=== PATIENT | female | born 1970 | race Caucasian/White ===

== ENCOUNTER 2016-11-08 21:20 | Emergency (ER) | payer OTHER ==
[~2016-11-08] VITALS: Ht 160 cm; Wt 61.2 kg
[~2016-11-08 21:20] MED LIST: ALPR.5T PO; CYCL10TA9 PO; FLUT16SP22 NS; PRD20T PO; [UNRECOGNIZED DRUG - CODE]
[2016-11-08] MEDS ORDERED: [UNRECOGNIZED DRUG - OTHER] (21:32)
[2016-11-08] MEDS ORDERED: PROP60TA17 (21:32)
[2016-11-08] MEDS ORDERED: GABA-486 (21:32)
[2016-11-08] MEDS ORDERED: PSEU60TA20 (21:32)
[2016-11-08] MEDS ORDERED: LEVO5TAB12 (21:32)
[2016-11-08] MEDS ORDERED: ALPR1TAB7 (21:33)
[2016-11-08] MEDS ORDERED: BACL20TA (21:33)
--- NOTE | 2016-11-08 21:38 | ED Head Injury ---
General Chief Complaint: Head/Cervical Problems Stated Complaint: MIGRAINE Nursing Triage Note: migraine since this morning, reports taking fiorecet without relief Source: patient, RN notes reviewed Exam Limitations: no limitations History of Present Illness Time seen by provider: 21:38 Initial Comments As above and below. 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 (+) hx of migraines. Occurred: this morning Severity: severe Location: frontal (right) Associated Systoms: Nausea/Vomiting Allergies and Home Medications Allergies Coded Allergies: No Known Drug Allergies (Unverified , 12/30/12) Home Medications Alprazolam 0.5 Mg Tablet, 1 TAB PO BID, (Reported) Alprazolam 1 Mg Tablet, #60 (Reported) Baclofen 20 Mg Tablet, #90 (Reported) Fluticasone Propionate 16 Gm Naspr, 16 GM NS DAILY, (Reported) Gabapentin 100 Mg Capsule, #90 (Reported) Levocetirizine Dihydrochloride 5 Mg Tablet, #30 (Reported) Propranolol HCl 60 Mg Tablet, #60 (Reported) Pseudoephedrine HCl 60 Mg Tablet, #30 (Reported) [Butalbital-APAP-] , #40 (Reported) Constitutional: see HPI Gastrointestinal: see HPI, nausea, vomiting : No Psychiatric/Neurological: See HPI, Headache All Other Systems Reviewed Negative Unless Noted: Yes (Negative excepted noted.) Past Bmxuwik-Ygibqh-Gxkgds Hx Patient Social History Alcohol Use: Denies Use Recreational Drug Use: No Smoking Status: Never a Smoker Recent Foreign Travel: No Contact w/Someone Who Travel: No Recent Infectious Disease Expo: No Recent Hopitalizations: No Seasonal Allergies Seasonal Allergies: Yes (HAYFEVER) Surgeries HX Surgeries: Yes Surgeries: Gallbladder Respiratory Hx Respiratory Disorders: Yes Respiratory Disorders: Asthma Cardiovascular Hx Cardiac Disorders: Yes Cardiac Disorders: Hypertension Neurological Hx Neurological Disorders: Yes Neurological Disorders: Headaches /Migraines Reproductive System Hx Reproductive Disorders: No Sexually Transmitted Disease: No Genitourinary Hx Genitourinary Disorders: No Gastrointestinal Hx Gastrointestinal Disorders: No Musculoskeletal Hx Musculoskeletal Disorders: No Endocrine Hx Endocrine Disorders: No HEENT HX ENT Disorders: No Cancer Hx Cancer: No Psychosocial Hx Psychiatric Problems: No Integumentary HX Skin/Integumentary Disorder: No Blood Transfusions Hx Blood Disorders: No Family Medical History Significant Family History: No Pertinent Family Hx Physical Exam Vital Signs Vital Sign - Last 12Hours 11/08/16 21:28 Temp 98.2 Pulse 84 Resp 18 B/P (MAP) 149/114 Pulse Ox 99 Capillary Refill : Less Than 3 Seconds General Appearance: WD/WN, mild distress HEENT: PERRL/EOMI, normal ENT inspection, pharynx normal Neck: supple, normal inspection Cardiovascular: regular rate, rhythm Respiratory: no respiratory distress Psychiatric: alert, oriented x 3 Crainal Nerves: normal hearing, normal speech, PERRL Coordination/Gait: normal finger to nose Motor/Sensory: no motor deficit, no sensory deficit, no pronator drift Reflexes: 2+ Knee (R), 2+ Knee (L) Skin: warm/dry Progress/Results/Core Measures Results/Orders My Orders Orders - RAFAELA SERRANO DO Im/Sub-Q Injection Non-Ab Ed (11/08/16 ) Medications Given in ED Vital Signs/I&O Blood Pressure Mean: 126 Departure Impression Impression: Primary Impression: Migraine Disposition: 01 HOME, SELF-CARE Condition: Improved Departure-Patient Inst. Decision time for Depature: 22:30 Referrals: [facility] (PCP) Primary Care Physician RAFAELA MCHUGH (Family) Primary Care Physician Patient Instructions: Migraine Headache (DC) RAFAELA SERRANO DO Nov 08, 2016 21:38
[2016-11-08] MEDS ORDERED: BUTORPHANOL INJ 2 MG/ML (STADOL) VIAL IM ONE (21:45)
[2016-11-08] MEDS ORDERED: PROMETHAZINE INJ 25 MG/ML (PHENERGAN) AMP IM ONE (21:45)
[2016-11-08 22:39] VITALS: BP 143/100
--- OUTSIDE RECORDS SUMMARY | 2016-12-12 07:04 | XMS REPORT ---
Author Author RAFAELA MCHUGH [facility] eClinicalWorks Address Unknown Phone Unavailable Care Team Providers Care Research Assistant Name Role Phone RAFAELA MCHUGH CP Unavailable Allergies No Known Allergies Problems Problem Type Condition Code Onset Dates Condition Status Problem Unspecified constipation 564.00 Active Problem Screening for malignant neoplasm of the cervix V76.2 Active Problem Screening examination for venereal disease V74.5 Active Problem Unspecified episodic mood disorder 296.90 Active Problem Irregular menstrual cycle 626.4 Active Problem Unspecified iron deficiency anemia 280.9 Active Problem Insomnia, unspecified 780.52 Active Problem HTN (hypertension) 401.9 Active Problem Unspecified disorders of bursae and tendons in shoulder region 726.10 Active Problem Migraine, unspecified without mention of intractable migraine without mention of status migrainosus 346.90 Active Problem Other abnormal blood chemistry 790.6 Active Problem Cellulitis and abscess of unspecified site 682.9 Active Problem Family history of diabetes mellitus V18.0 Active Problem Procreative counseling and advice using natural family planning V26.41 Active Problem Unspecified spontaneous without mention of complication 634.90 Active Problem Family history of other cardiovascular diseases V17.49 Active Problem Lateral epicondylitis of elbow 726.32 Active Problem Influenza with other respiratory manifestations 487.1 Active Problem Unspecified sleep disturbance 780.50 Active Problem Nausea alone 787.[address] of occurrence, home E849.0 Active Problem Need for prophylactic vaccination and inoculation, Influenza V04.81 Active Medications Medication Code System Code Instructions Start Date End Date Status Dosage Xanax [facility] [address]-72 1 MG Orally Twice a day December 13, 2014 1 tablet Results No Known Results Summary Purpose eClinicalWorks Submission
--- OUTSIDE RECORDS SUMMARY | 2016-12-12 07:04 | XMS REPORT ---
Author Author RAFAELA MCHUGH [facility] eClinicalWorks Address Unknown Phone Unavailable Care Team Providers Care Administrative Support Assoc Name Role Phone RAFAELA MCHUGH CP Unavailable [...] Instructions Start Date End Date Status Dosage SudoGest [facility] [address]-15 60 MG TAKE ONE TABLET BY MOUTH EVERY 6 HOURS NEEDED Results No Known Results Summary Purpose eClinicalWorks Submission
--- OUTSIDE RECORDS SUMMARY | 2016-12-12 07:05 | XMS REPORT ---
Author Author RAFAELA MCHUGH [facility] eClinicalWorks Address Unknown Phone Unavailable Care Team Providers Care Cook Helper Fruit Name Role Phone RAFAELA MCHUGH CP Unavailable [...] Instructions Start Date End Date Status Dosage Hopgfqibhs-EROD-Uaphlhgf [facility] 52548583595 50-325-40 MG TAKE ONE TO TWO TABLETS BY MOUTH EVERY 4 HOURS NEEDED (NOT TO EXCEED SIX TABLETS/24 HOURS) Alprazolam [facility] [address]-32 0.25 MG Orally Twice a day 1 tablet Results No Known Results Summary Purpose eClinicalWorks Submission
--- OUTSIDE RECORDS SUMMARY | 2016-12-12 07:05 | XMS REPORT ---
Author Author RAFAELA MCHUGH [facility] eClinicalWorks Address Unknown Phone Unavailable Care Team Providers Care Drill Operator Pneumatic Name Role Phone RAFAELA MCHUGH CP Unavailable [...] Instructions Start Date End Date Status Dosage Xthrrrwbjd-NEYI-Pfwkgljr [facility] [address]-53 50-325-40 MG TAKE ONE TO TWO TABLETS BY MOUTH EVERY 4 HOURS NEEDED (NOT TO EXCEED SIX TABLETS/ 24 HOURS) Results No Known Results Summary Purpose eClinicalWorks Submission
--- OUTSIDE RECORDS SUMMARY | 2016-12-12 07:05 | XMS REPORT ---
Author RAFAELA Martinez [facility] eClinicalWorks Address Unknown Phone Unavailable Care Team Providers Care Setter Machine Name Role Phone RAFAELA MCHUGH CP Unavailable Allergies, Adverse Reactions, Alerts Substance Reaction Event Type Hydrocodone-Acetaminophen nausea and vomiting Drug Allergy Problems Problem Type Condition Code Onset Dates Condition Status Problem Screening examination for venereal disease V74.5 Active Problem Migraine, unspecified without mention of intractable migraine without mention of status migrainosus 346.90 Active Problem Screening for malignant neoplasm of the cervix V76.2 Active Problem HTN (hypertension) 401.9 Active Problem Unspecified spontaneous without mention of complication 634.90 Active Problem Unspecified episodic mood disorder 296.90 Active Problem Irregular menstrual cycle 626.4 Active Problem Insomnia, unspecified 780.52 Active Problem Migraine without aura and without status migrainosus, not intractable G43.009 Active Problem Cellulitis and abscess of unspecified site 682.9 Active Problem Unspecified disorders of bursae and tendons in shoulder region 726.10 Active Problem Unspecified iron deficiency anemia 280.9 Active Problem Other abnormal blood chemistry 790.6 Active Problem Procreative counseling and advice using natural family planning V26.41 Active Problem Unspecified sleep disturbance 780.50 Active Problem Family history of other cardiovascular diseases V17.49 Active Problem Family history of diabetes mellitus V18.0 Active Problem Influenza with other respiratory manifestations 487.1 Active Problem Nausea alone 787.[address] of occurrence, home E849.0 Active Problem Need for prophylactic vaccination and inoculation, Influenza V04.81 Active Assessment Migraine without aura and without status migrainosus, not intractable G43.009 Active Problem Lateral epicondylitis of elbow 726.32 Active Problem Unspecified constipation 564.00 Active Medications Medication Code System Code Instructions Start Date End Date Status Dosage Xyzal [facility] 71048334064 5 MG take 1 tablet by Oral route 1 time per day Baclofen [place] 79296909944 20 MG TAKE ONE TABLET BY MOUTH THREE TIMES DAILY NEEDED Neurontin [facility] [address]-23 100 MG Orally Three times a day May 27, 2016 1 capsule Flonase NDC 0 50 mcg/actuation 2 spray(s) intranasally once a day Sep 09, 2014 take 1 sprays by Nasal route 1 time per day in each nostril Propranolol HCl [facility] [address]-41 60 MG Orally Twice a day 1 tablet SudoGest [facility] [address]-85 60 mg every 6 hrs 1 tablet Ferrous Sulfate [facility] [address]-38 325 mg (65 mg iron) Apr 24, 2014 1 Tablet by Oral route 2 times per day give with food Proventil HFA [facility] 97265493473 108 (90 Base) MCG/ACT INHALE TWO PUFFS BY MOUTH EVERY 6 HOURS NEEDED FOR SHORTNESS OF BREATH/COUGH Xanax [facility] [address]-87 1 MG Orally Twice a day December 13, 2014 1 tablet Procedures Procedure Coding System Code Date Office Visit, Est Pt., Level 3 CPT-4 69102 May 27, 2016 Vital Signs Date/Time: May 27, 2016 Cardiac Monitoring Heart Rate 76 bpm Weight 134.4 lbs Height 64 in BMI 23.07 Index Blood Pressure Diastolic 90 mmHg Blood Pressure Systolic 118 mmHg Results No Known Results Summary Purpose eClinicalWorks Submission
--- OUTSIDE RECORDS SUMMARY | 2016-12-12 07:05 | XMS REPORT ---
Author Author TRAM SOLIMAN [facility] Address Unknown Care Team Providers Care Healthcare Risk Control Consultant Name Role Phone TRAM SOLIMAN Unavailable PROBLEMS Type Condition ICD9-CM Code [id number] Code Onset Dates Condition Status SNOMED Code Problem Screening examination for venereal disease V74.5 Active 827545013 Problem Migraine, unspecified without mention of intractable migraine without mention of status migrainosus 346.90 Active 09729724 Problem Screening for malignant neoplasm of the cervix V76.2 Active 075566267 Problem HTN (hypertension) 401.9 Active 32763321 Problem Unspecified spontaneous without mention of complication 634.90 Active 55690885 Problem Unspecified episodic mood disorder 296.90 Active 264624812 Problem Irregular menstrual cycle 626.4 Active 16513312 Problem Insomnia, unspecified 780.52 Active 848385119 Problem Cellulitis and abscess of unspecified site 682.9 Active 182059070 Problem Unspecified disorders of bursae and tendons in shoulder region 726.10 Active 68969964 Problem Unspecified iron deficiency anemia 280.9 Active 48978725 Problem Other abnormal blood chemistry 790.6 Active 426590605 Problem Procreative counseling and advice using natural family planning V26.41 Active Problem Unspecified sleep disturbance 780.50 Active 77563896 Problem Family history of other cardiovascular diseases V17.49 Active 666290383 Problem Family history of diabetes mellitus V18.0 Active 839863936 Problem Influenza with other respiratory manifestations 487.1 Active 1938575 Problem Nausea alone 787.[address] of occurrence, home E849.0 Active 49797933 Problem Need for prophylactic vaccination and inoculation, Influenza V04.81 Active 467352573 Assessment Dental examination Z01.20 Mar, Active 227099705 Problem Lateral epicondylitis of elbow 726.32 Active 162589791 Problem Unspecified constipation 564.00 Active 09963777 ALLERGIES Substance Reaction Event Type Date Status Hydrocodone-Acetaminophen nausea and vomiting Drug Allergy Mar, Active SOCIAL HISTORY No smoking Hx information available PLAN OF CARE VITAL SIGNS Blood pressure systolic 119 mmHg 2016-04-02 Blood pressure diastolic 81 mmHg 2016-04-02 MEDICATIONS Medication Instructions Dosage Frequency Start Date End Date Duration Status Baclofen 20 MG TAKE ONE TABLET BY MOUTH THREE TIMES DAILY NEEDED 30 Active SudoGest 60 mg 1 tablet 6h Active ProAir HFA 90 mcg/actuation inhale 2 puffs by inhalation route every 6 hours PRN shortness of breath/cough Jul, Active Xanax 1 MG Orally Twice a day 1 tablet 12h December, Active Proventil HFA 108 (90 Base) MCG/ACT INHALE TWO PUFFS BY MOUTH EVERY 6 HOURS NEEDED FOR SHORTNESS OF BREATH/COUGH 25 Active Xyzal 5 MG take 1 tablet by Oral route 1 time per day 30 Active Flonase 50 mcg/actuation take 1 sprays by Nasal route 1 time per day in each nostril Sep, Active Ferrous Sulfate 325 mg (65 mg iron) 1 Tablet by Oral route 2 times per day give with food Apr, Active Propranolol HCl 40 MG Orally Twice a day 1 tablet 12h 30 Active Alprazolam 0.25 MG Orally Three times a day 1 tablet 8h Active Ayovgxetml-ZYQE-Uniwwssv 50-325-40 MG TAKE ONE TO TWO TABLETS BY MOUTH EVERY 4 HOURS NEEDED (NOT TO EXCEED SIX TABLETS/24 HOURS) 2 Active RESULTS No Results PROCEDURES Procedure Date Ordered Related Diagnosis Body Site LTD ORAL EVALUATION - PROBLEM FOCUS Apr 02, 2016 INTRAORL-PERIAPICAL 1 FILM [id number] Apr 02, 2016 Billing Notes on claim Apr 02, 2016 BITEWING - SINGLE FILM Apr 02, 2016 IMMUNIZATIONS No Known Immunizations
--- OUTSIDE RECORDS SUMMARY | 2016-12-12 07:06 | XMS REPORT | Continuity of Care Document ---
Author Author [facility] Organization [facility] Address Unknown Phone Unavailable Care Team Providers Care Bowling Ball Finisher Name Role Phone RAFAELA MCHUGH JESUS PP Insurance Providers Payer Name Policy Number Subscriber Name Relationship [facility] [id number] Jackierosario Misbah Hurst 01 Self / Same As Patient Advance Directives Directive Response Recorded Date Advance Directives N 12/30/12 10:45pm Organ Donor N 12/30/12 10:45pm Problems No Known Problems or Medical conditions. Social History History Response Recorded Date/Time Alcohol Use Denies Use 12/30/12 10:45pm Recreational Drug Use N 12/30/12 10:45pm Allergies, Adverse Reactions, Alerts Allergen Type Severity Reaction Last Updated No Known Drug Allergies 12/30/12 Medications Medication Dose Units Route Sig Qty Days Prednisone 40 Mg PO DAILY 5 Fluticasone Propionate (Flonase Nasal [place]) 16 Gm NS DAILY Alprazolam (Xanax) 1 Tab PO BID Cyclobenzaprine HCl (Cyclobenzaprine Hcl) 1 Each PO BID Nasal Exhalation Resistance Dv (Provent) 1 Each .ROUTE BID Response Recorded Date/Time Status not known Unknown Results No Known Relevant Diagnostic Tests, Laboratory Data and/or Discharge Summary. Encounters Encounter Location Date/Time Departed Emergency Room [facility] 10:25pm
--- OUTSIDE RECORDS SUMMARY | 2016-12-12 07:06 | XMS REPORT ---
Author Author RAFAELA MCHUGH [facility] eClinicalWorks Address Unknown Phone Unavailable Care Team Providers Care Reflector Driller And Deburrer Name Role Phone RAFAELA MCHUGH CP Unavailable [...] prophylactic vaccination and inoculation, Influenza V04.81 Active Problem Lateral epicondylitis of elbow 726.32 Active Problem Unspecified constipation 564.00 Active Medications Medication Code System Code Instructions Start Date End Date Status Dosage Xanax [facility] [address]-14 1 MG Orally Twice a day December 13, 2014 1 tablet Results No Known Results Summary Purpose eClinicalWorks Submission
--- OUTSIDE RECORDS SUMMARY | 2016-12-12 07:06 | XMS REPORT | Continuity of Care Document ---
Author Author [facility] Organization [facility] Address Unknown Phone Unavailable Allergies Active Description Code Type Severity Reaction Onset Reported/Identified Relationship to Patient Clinical Status Yes No Known Drug Allergies [id number] Drug Allergy Unknown N/ A 12/30/2012 Medications Problems Date Dx Coded Attending Type Code Diagnosis Diagnosed By 06/05/2009 465.9 UPPER RESPIRATORY INFECTION 06/05/2009 465.9 UPPER RESPIRATORY INFECTION 06/05/2009 BAZAN DO TONY K 465.9 UPPER RESPIRATORY INFECTION 06/05/2009 465.9 UPPER RESPIRATORY INFECTION 06/05/2009 465.9 UPPER RESPIRATORY INFECTION 06/05/2009 BAZAN DO TONY K 465.9 UPPER RESPIRATORY INFECTION 06/05/2009 BAZAN DO, TONY K 465.9 UPPER RESPIRATORY INFECTION 06/05/2009 RAFAELA MCHUGH APRN T 465.9 UPPER RESPIRATORY INFECTION 06/05/2009 BAZAN DO TONY K 465.9 UPPER RESPIRATORY INFECTION 06/05/2009 MANUEL BONILLA APRN R 465.9 UPPER RESPIRATORY INFECTION 06/05/2009 RAFAELA MCHUGH APRN T 465.9 UPPER RESPIRATORY INFECTION 06/05/2009 WHITE HONEY PURCELL 465.9 UPPER RESPIRATORY INFECTION 06/05/2009 RAFAELA MCHUGH APRN T 465.9 UPPER RESPIRATORY INFECTION 06/05/2009 BAZAN DO TONY K 465.9 UPPER RESPIRATORY INFECTION 06/05/2009 GERIJudson RUTH LUCIE A 465.9 UPPER RESPIRATORY INFECTION 06/05/2009 BAZAN DO TONY K 465.9 UPPER RESPIRATORY INFECTION 06/05/2009 DAVIDSONJOSE CLARK DDS 465.9 UPPER RESPIRATORY INFECTION 06/05/2009 RAFAELA MCHUGH APRN 465.9 UPPER RESPIRATORY INFECTION 06/05/2009 RAFAELA MCHUGH APRN 465.9 UPPER RESPIRATORY INFECTION 06/05/2009 BAZAN DO TONY K 465.9 UPPER RESPIRATORY INFECTION 06/05/2009 MADVICTOR M Hurst APRN 465.9 UPPER RESPIRATORY INFECTION 06/05/2009 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, 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 T 465.9 UPPER RESPIRATORY INFECTION 06/05/2009 JULIA FRANCO APRN A 465.9 UPPER RESPIRATORY INFECTION 06/05/2009 RAFAELA MCHUGH APRN 465.9 UPPER RESPIRATORY INFECTION 06/05/2009 ANDERSON MCCORD APRN 465.9 UPPER RESPIRATORY INFECTION 12/17/2009 780.4 DIZZINESS AND GIDDINESS 12/17/2009 780.4 DIZZINESS AND GIDDINESS 12/17/2009 BAZAN DO, TONY K 780.4 DIZZINESS AND GIDDINESS 12/17/2009 780.4 DIZZINESS AND GIDDINESS 12/17/2009 780.4 DIZZINESS AND GIDDINESS 12/17/2009 BAZAN DO, TONY K 780.4 DIZZINESS AND GIDDINESS 12/17/2009 BAZAN DO, TONY K 780.4 DIZZINESS AND GIDDINESS 12/17/2009 RAFAELA MCHUGH APRN 780.4 DIZZINESS AND GIDDINESS 12/17/2009 BAZAN DO, TONY K 780.4 DIZZINESS AND GIDDINESS 12/17/2009 MANUEL BONILLA APRN R 780.4 DIZZINESS AND GIDDINESS 12/17/2009 RAFAELA MCHUGH APRN 780.4 DIZZINESS AND GIDDINESS 12/17/2009 HONEY CASTILLO DDS 780.4 DIZZINESS AND GIDDINESS 12/17/2009 RAFAELA MCHUGH APRN 780.4 DIZZINESS AND GIDDINESS 12/17/2009 BAZAN DO, TONY K 780.4 DIZZINESS AND GIDDINESS 12/17/2009 LUCIE NEVAREZ APRN A 780.4 DIZZINESS AND GIDDINESS 12/17/2009 BAZAN DO, TONY K 780.4 DIZZINESS AND GIDDINESS 12/17/2009 JOSE DAVIDSON DDS 780.4 DIZZINESS AND GIDDINESS 12/17/2009 RAFAELA MCHUGH APRN 780.4 DIZZINESS AND GIDDINESS 12/17/2009 RAFAELA MCHUGH APRN 780.4 DIZZINESS AND GIDDINESS 12/17/2009 BAZAN DO, TONY K 780.4 DIZZINESS AND GIDDINESS 12/17/2009 VICTOR M RAMOS APRN 780.4 DIZZINESS AND GIDDINESS 12/17/2009 RAFAELA MCHUGH APRN 780.4 DIZZINESS AND GIDDINESS 12/17/2009 JULIA FRANCO APRN A 780.4 DIZZINESS AND GIDDINESS 12/17/2009 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, RAFAELA T 780.4 DIZZINESS AND GIDDINESS 12/17/2009 FLEX RUTH ANDERSON R 780.4 DIZZINESS AND GIDDINESS 03/05/2010 719.41 PAIN IN JOINT INVOLVING SHOULDER REGION 03/05/2010 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, OTHER SPECIFIED DISORDERS 03/05/2010 719.41 PAIN IN JOINT INVOLVING SHOULDER REGION 03/05/2010 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, OTHER SPECIFIED DISORDERS 03/05/2010 TONY BAZAN DO K 719.41 PAIN IN JOINT INVOLVING SHOULDER REGION 03/05/2010 EDNA BAZAN DOA K 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, OTHER SPECIFIED DISORDERS 03/05/2010 719.41 PAIN IN JOINT INVOLVING SHOULDER REGION 03/05/2010 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, OTHER SPECIFIED DISORDERS 03/05/2010 719.41 PAIN IN JOINT INVOLVING SHOULDER REGION 03/05/2010 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, OTHER SPECIFIED DISORDERS 03/05/2010 TONY BAZAN DO K 719.41 PAIN IN JOINT INVOLVING SHOULDER REGION 03/05/2010 EDNA BAZAN DOA K 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, OTHER SPECIFIED DISORDERS 03/05/2010 EDNA BAZAN DOA K 719.41 PAIN IN JOINT INVOLVING SHOULDER REGION 03/05/2010 EDNA BAZAN DOA K 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, OTHER SPECIFIED DISORDERS 03/05/2010 RAFAELA MCHUGH APRN 719.41 PAIN IN JOINT INVOLVING SHOULDER REGION 03/05/2010 RAFAELA MCHUGH APRN 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, OTHER SPECIFIED DISORDERS 03/05/2010 TONY BAZAN DO K 719.41 PAIN IN JOINT INVOLVING SHOULDER REGION 03/05/2010 TONY BAZAN DO K 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, OTHER SPECIFIED DISORDERS 03/05/2010 MANUEL BONILLA APRN 719.41 PAIN IN JOINT INVOLVING SHOULDER REGION 03/05/2010 MANUEL BONILLA APRN R 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, OTHER SPECIFIED DISORDERS 03/05/2010 ARFAELA MCHUGH APRN 719.41 PAIN IN JOINT INVOLVING SHOULDER REGION 03/05/2010 RAFAELA MCHUGH APRN 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, OTHER SPECIFIED DISORDERS 03/05/2010 WHITE DDS, HONEY D 719.41 PAIN IN JOINT INVOLVING SHOULDER REGION 03/05/2010 WHITE DDS, HONEY D 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, OTHER SPECIFIED DISORDERS 03/05/2010 RAFAELA MCHUGH APRN 719.41 PAIN IN JOINT INVOLVING SHOULDER REGION 03/05/2010 RAFAELA MCHUGH APRN 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, OTHER SPECIFIED DISORDERS 03/05/2010 TONY BAZAN DO 719.41 PAIN IN JOINT INVOLVING SHOULDER REGION 03/05/2010 BENI MARMOLEJO TONY K 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, OTHER SPECIFIED DISORDERS 03/05/2010 LUCIE NEVAREZ APRN A 719.41 PAIN IN JOINT INVOLVING SHOULDER REGION 03/05/2010 LUCIE NEVAREZ APRN A 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, OTHER SPECIFIED DISORDERS 03/05/2010 EDNA BAZAN DOA K 719.41 PAIN IN JOINT INVOLVING SHOULDER REGION 03/05/2010 EDNA BAZAN DOA K 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, OTHER SPECIFIED DISORDERS 03/05/2010 JOSE DAVIDSON DDS 719.41 PAIN IN JOINT INVOLVING SHOULDER REGION 03/05/2010 LETY RODRIGUEZSJOSE 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, OTHER SPECIFIED DISORDERS 03/05/2010 RAFAELA MCHUGH APRN 719.41 PAIN IN JOINT INVOLVING SHOULDER REGION 03/05/2010 RAFAELA MCHUGH APRN 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, OTHER SPECIFIED DISORDERS 03/05/2010 RAFAELA MCHUGH APRN 719.41 PAIN IN JOINT INVOLVING SHOULDER REGION 03/05/2010 RAFAELA MCHUGH APRN 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, OTHER SPECIFIED DISORDERS 03/05/2010 EDNA BAZAN DOA K 719.41 PAIN IN JOINT INVOLVING SHOULDER REGION 03/05/2010 BENI MARMOLEJO TONY K 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, OTHER SPECIFIED DISORDERS 03/05/2010 VICTOR M RAMOS APRN 719.41 PAIN IN JOINT INVOLVING SHOULDER REGION 03/05/2010 VICTOR M RAMOS APRN 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, OTHER SPECIFIED DISORDERS 03/05/2010 RAFAELA MCHUGH APRN 719.41 PAIN IN JOINT INVOLVING SHOULDER REGION 03/05/2010 RAFAELA MCHUGH APRN 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, OTHER SPECIFIED DISORDERS 03/05/2010 JULIA FRANCO APRN A 719.41 PAIN IN JOINT INVOLVING SHOULDER REGION 03/05/2010 JULIA FRANCO APRN A 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, OTHER SPECIFIED DISORDERS 03/05/2010 RAFAELA MCHUGH APRN 719.41 PAIN IN JOINT INVOLVING SHOULDER REGION 03/05/2010 RAFAELA MCHUGH APRN 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, OTHER SPECIFIED DISORDERS 03/05/2010 ANDERSON MCCORD APRN R 719.41 PAIN IN JOINT INVOLVING SHOULDER REGION 03/05/2010 ANDERSON MCCORD APRN R 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, OTHER SPECIFIED DISORDERS 07/03/2010 460 ACUTE NASOPHARYNGITIS (COMMON COLD) 07/03/2010 493.90 ASTHMA UNSPECIFIED 07/03/2010 460 ACUTE NASOPHARYNGITIS (COMMON COLD) 07/03/2010 493.90 ASTHMA UNSPECIFIED 07/03/2010 BAZAN DO, TONY K 460 ACUTE NASOPHARYNGITIS (COMMON COLD) 07/03/2010 BAZAN DO, TONY K 493.90 ASTHMA UNSPECIFIED 07/03/2010 460 ACUTE NASOPHARYNGITIS (COMMON COLD) 07/03/2010 493.90 ASTHMA UNSPECIFIED 07/03/2010 460 ACUTE NASOPHARYNGITIS (COMMON COLD) 07/03/2010 493.90 ASTHMA UNSPECIFIED 07/03/2010 BAZAN DO, TONY K 460 ACUTE NASOPHARYNGITIS (COMMON COLD) 07/03/2010 BAZAN DO, TONY K 493.90 ASTHMA UNSPECIFIED 07/03/2010 BAZAN DO, TONY K 460 ACUTE NASOPHARYNGITIS (COMMON COLD) 07/03/2010 BAZAN DO, TONY K 493.90 ASTHMA UNSPECIFIED 07/03/2010 RAFAELA MCHUGH APRN 460 ACUTE NASOPHARYNGITIS (COMMON COLD) 07/03/2010 RAFAELA MCHUGH APRN 493.90 ASTHMA UNSPECIFIED 07/03/2010 BAZAN DO TONY K 460 ACUTE NASOPHARYNGITIS (COMMON COLD) 07/03/2010 BENI MARMOLEJO TONY K 493.90 ASTHMA UNSPECIFIED 07/03/2010 IRENE RUTH, MANUEL R 460 ACUTE NASOPHARYNGITIS (COMMON COLD) 07/03/2010 IRENE RUTH MANUEL R 493.90 ASTHMA UNSPECIFIED 07/03/2010 RAFAELA MCHUGH APRN 460 ACUTE NASOPHARYNGITIS (COMMON COLD) 07/03/2010 RAFAELA MCHUGH APRN 493.90 ASTHMA UNSPECIFIED 07/03/2010 WHITE DDS, HONEY D 460 ACUTE NASOPHARYNGITIS (COMMON COLD) 07/03/2010 WHITE DDS, HONEY D 493.90 ASTHMA UNSPECIFIED 07/03/2010 RAFAELA MCHUGH APRN 460 ACUTE NASOPHARYNGITIS (COMMON COLD) 07/03/2010 RAFAELA MCHUGH APRN 493.90 ASTHMA UNSPECIFIED 07/03/2010 EDNA BAZAN DOA K 460 ACUTE NASOPHARYNGITIS (COMMON COLD) 07/03/2010 BENI MARMOLEJO TONY K 493.90 ASTHMA UNSPECIFIED 07/03/2010 GERIEMILIE RUTH LUCIE A 460 ACUTE NASOPHARYNGITIS (COMMON COLD) 07/03/2010 GERIEMILIE RUTH LUCIE A 493.90 ASTHMA UNSPECIFIED 07/03/2010 BENI MARMOLEJO TONY K 460 ACUTE NASOPHARYNGITIS (COMMON COLD) 07/03/2010 BENI MARMOLEJO TONY K 493.90 ASTHMA UNSPECIFIED 07/03/2010 LETY DDSJOSE 460 ACUTE NASOPHARYNGITIS (COMMON COLD) 07/03/2010 DAVIDSON DDSJOSE 493.90 ASTHMA UNSPECIFIED 07/03/2010 RAFAELA MCHUGH APRN 460 ACUTE NASOPHARYNGITIS (COMMON COLD) 07/03/2010 RAFAELA MCHUGH APRN 493.90 ASTHMA UNSPECIFIED 07/03/2010 RAFAELA MCHUGH APRN 460 ACUTE NASOPHARYNGITIS (COMMON COLD) 07/03/2010 RAFAELA MCHUGH APRN 493.90 ASTHMA UNSPECIFIED 07/03/2010 BENI MARMOLEJO TONY K 460 ACUTE NASOPHARYNGITIS (COMMON COLD) 07/03/2010 BENI MARMOLEJO TONY K 493.90 ASTHMA UNSPECIFIED 07/03/2010 MADVICTOR M Hurst APRN L 460 ACUTE NASOPHARYNGITIS (COMMON COLD) 07/03/2010 VICTOR M RAMOS APRN L 493.90 ASTHMA UNSPECIFIED 07/03/2010 RAFAELA MCHUGH APRN 460 ACUTE NASOPHARYNGITIS (COMMON COLD) 07/03/2010 RAFAELA MCHUGH APRN 493.90 ASTHMA UNSPECIFIED 07/03/2010 JULIA FRANCO APRN A 460 ACUTE NASOPHARYNGITIS (COMMON COLD) 07/03/2010 JEANNINE FRANCO APRNYL A 493.90 ASTHMA UNSPECIFIED 07/03/2010 RAFAELA MCHUGH APRN 460 ACUTE NASOPHARYNGITIS (COMMON COLD) 07/03/2010 RAFAELA MCHUGH APRN 493.90 ASTHMA UNSPECIFIED 07/03/2010 ANDERSON MCCORD APRN R 460 ACUTE NASOPHARYNGITIS (COMMON COLD) 07/03/2010 ANDERSON MCCORD APRN R 493.90 ASTHMA UNSPECIFIED 10/30/2010 461.9 ACUTE SINUSITIS UNSPECIFIED 10/30/2010 461.9 ACUTE SINUSITIS UNSPECIFIED 10/30/2010 BAZAN DO, TONY K 461.9 ACUTE SINUSITIS UNSPECIFIED 10/30/2010 461.9 ACUTE SINUSITIS UNSPECIFIED 10/30/2010 461.9 ACUTE SINUSITIS UNSPECIFIED 10/30/2010 BAZAN DO, TONY K 461.9 ACUTE SINUSITIS UNSPECIFIED 10/30/2010 BAZAN DO, TONY K 461.9 ACUTE SINUSITIS UNSPECIFIED 10/30/2010 RAFAELA MCHUGH APRN 461.9 ACUTE SINUSITIS UNSPECIFIED 10/30/2010 BAZAN DO, TONY K 461.9 ACUTE SINUSITIS UNSPECIFIED 10/30/2010 MANUEL BONILLA APRN R 461.9 ACUTE SINUSITIS UNSPECIFIED 10/30/2010 RAFAELA MCHUGH APRN 461.9 ACUTE SINUSITIS UNSPECIFIED 10/30/2010 HONEY CASTILLO DDS 461.9 ACUTE SINUSITIS UNSPECIFIED 10/30/2010 RAFAELA MCHUGH APRN 461.9 ACUTE SINUSITIS UNSPECIFIED 10/30/2010 BAZAN DO, TONY K 461.9 ACUTE SINUSITIS UNSPECIFIED 10/30/2010 GERIJudson RUTH LUCIE A 461.9 ACUTE SINUSITIS UNSPECIFIED 10/30/2010 BAZAN DO, TONY K 461.9 ACUTE SINUSITIS UNSPECIFIED 10/30/2010 JOSE DAVIDSON DDS 461.9 ACUTE SINUSITIS UNSPECIFIED 10/30/2010 RAFAELA MCHUGH APRN 461.9 ACUTE SINUSITIS UNSPECIFIED 10/30/2010 RAFAELA MCHUGH APRN 461.9 ACUTE SINUSITIS UNSPECIFIED 10/30/2010 TONY BAZAN DO 461.9 ACUTE SINUSITIS UNSPECIFIED 10/30/2010 RACHEL RUTHVICTOR M Aris 461.9 ACUTE SINUSITIS UNSPECIFIED 10/30/2010 RAFAELA MCHUGH APRN 461.9 ACUTE SINUSITIS UNSPECIFIED 10/30/2010 ALYXKaya RUTHJULIA Leo 461.9 ACUTE SINUSITIS UNSPECIFIED 10/30/2010 RAFAELA MCHUGH APRN 461.9 ACUTE SINUSITIS UNSPECIFIED 10/30/2010 ANDERSON MCCORD APRN 461.9 ACUTE SINUSITIS UNSPECIFIED 05/25/2011 300.02 AN GEN ANXIETY 05/25/2011 307.40 SLEEP DISORDER, NONORGANIC 05/25/2011 300.02 AN GEN ANXIETY 05/25/2011 307.40 SLEEP DISORDER, NONORGANIC 05/25/2011 BAZAN DOEDNAA K 300.02 AN GEN ANXIETY 05/25/2011 BAZAN DO TONY K 307.40 SLEEP DISORDER, NONORGANIC 05/25/2011 300.02 AN GEN ANXIETY 05/25/2011 307.40 SLEEP DISORDER, NONORGANIC 05/25/2011 300.02 AN GEN ANXIETY 05/25/2011 307.40 SLEEP DISORDER, NONORGANIC 05/25/2011 BAZAN DO TONY K 300.02 AN GEN ANXIETY 05/25/2011 BAZAN DOEDNAA K 307.40 SLEEP DISORDER, NONORGANIC 05/25/2011 BAZAN DO TONY K 300.02 AN GEN ANXIETY 05/25/2011 BAZAN DO TONY K 307.40 SLEEP DISORDER, NONORGANIC 05/25/2011 RAFAELA MCHUGH APRN 300.02 AN GEN ANXIETY 05/25/2011 RAFAELA MCHUGH APRN 307.40 SLEEP DISORDER, NONORGANIC 05/25/2011 BAZAN DOEDNAA K 300.02 AN GEN ANXIETY 05/25/2011 BAZAN DO TOYN K 307.40 SLEEP DISORDER, NONORGANIC 05/25/2011 MANUEL BONILLA APRN R 300.02 AN GEN ANXIETY 05/25/2011 MANUEL BONILLA APRN R 307.40 SLEEP DISORDER, NONORGANIC 05/25/2011 RAFAELA MCHUGH APRN 300.02 AN GEN ANXIETY 05/25/2011 RAFAELA MCHUGH APRN 307.40 SLEEP DISORDER, NONORGANIC 05/25/2011 WHITE DDS, HONEY D 300.02 AN GEN ANXIETY 05/25/2011 WHITE DDS, HONEY Crump 307.40 SLEEP DISORDER, NONORGANIC 05/25/2011 RAFAELA MCHUGH APRN 300.02 AN GEN ANXIETY 05/25/2011 RAFAELA MCHUGH APRN 307.40 SLEEP DISORDER, NONORGANIC 05/25/2011 BAZAN DO, TONY K 300.02 AN GEN ANXIETY 05/25/2011 BAZAN DO, TONY K 307.40 SLEEP DISORDER, NONORGANIC 05/25/2011 GERIJudson RUTH LUCIE A 300.02 AN GEN ANXIETY 05/25/2011 GERIJudson RUTH LUCIE A 307.40 SLEEP DISORDER, NONORGANIC 05/25/2011 BAZAN DO, TONY K 300.02 AN GEN ANXIETY 05/25/2011 BAZAN DO, TONY K 307.40 SLEEP DISORDER, NONORGANIC 05/25/2011 DAVIDSON DDS, JOSE 300.02 AN GEN ANXIETY 05/25/2011 DAVIDSON DDS, JOSE 307.40 SLEEP DISORDER, NONORGANIC 05/25/2011 RAFAELA MCHUGH APRN 300.02 AN GEN ANXIETY 05/25/2011 RAFAELA MCHUGH APRN 307.40 SLEEP DISORDER, NONORGANIC 05/25/2011 RAFAELA MCHUGH APRN 300.02 AN GEN ANXIETY 05/25/2011 RAFAELA MCHUGH APRN 307.40 SLEEP DISORDER, NONORGANIC 05/25/2011 BAZAN DO TONY K 300.02 AN GEN ANXIETY 05/25/2011 BAZAN DO TONY K 307.40 SLEEP DISORDER, NONORGANIC 05/25/2011 VICTOR M RAMOS APRN L 300.02 AN GEN ANXIETY 05/25/2011 JEAN-CLAUDE RAMOS APRNA L 307.40 SLEEP DISORDER, NONORGANIC 05/25/2011 RAFAELA MCHUGH APRN 300.02 AN GEN ANXIETY 05/25/2011 RAFAELA MCHUGH APRN 307.40 SLEEP DISORDER, NONORGANIC 05/25/2011 JEANNINE FRANCO APRNYL A 300.02 AN GEN ANXIETY 05/25/2011 JEANNINE FRANCO APRNYL A 307.40 SLEEP DISORDER, NONORGANIC 05/25/2011 RAFAELA MCHUGH APRN 300.02 AN GEN ANXIETY 05/25/2011 RAFAELA MCHUGH APRN 307.40 SLEEP DISORDER, NONORGANIC 05/25/2011 ANDERSON MCCORD APRN 300.02 AN GEN ANXIETY 05/25/2011 ANDERSON MCCORD APRN 307.40 SLEEP DISORDER, NONORGANIC 06/10/2011 522.5 PERIAPICAL ABSCESS WITHOUT SINUS 06/10/2011 522.5 PERIAPICAL ABSCESS WITHOUT SINUS 06/10/2011 BAZAN DO, TONY K 522.5 PERIAPICAL ABSCESS WITHOUT SINUS 06/10/2011 522.5 PERIAPICAL ABSCESS WITHOUT SINUS 06/10/2011 522.5 PERIAPICAL ABSCESS WITHOUT SINUS 06/10/2011 BAZAN DO, TONY K 522.5 PERIAPICAL ABSCESS WITHOUT SINUS 06/10/2011 BAZAN DO, TONY K 522.5 PERIAPICAL ABSCESS WITHOUT SINUS 06/10/2011 RAFAELA MCHUGH APRN T 522.5 PERIAPICAL ABSCESS WITHOUT SINUS 06/10/2011 BAZAN DO, TONY K 522.5 PERIAPICAL ABSCESS WITHOUT SINUS 06/10/2011 MANUEL BONILLA APRN 522.5 PERIAPICAL ABSCESS WITHOUT SINUS 06/10/2011 RAFAELA MCHUGH APRN 522.5 PERIAPICAL ABSCESS WITHOUT SINUS 06/10/2011 HONEY CASTILLO DDS 522.5 PERIAPICAL ABSCESS WITHOUT SINUS 06/10/2011 RAFAELA MCHUGH APRN T 522.5 PERIAPICAL ABSCESS WITHOUT SINUS 06/10/2011 BAZAN DO, TONY K 522.5 PERIAPICAL ABSCESS WITHOUT SINUS 06/10/2011 GERIJudson RUTH LUCIE A 522.5 PERIAPICAL ABSCESS WITHOUT SINUS 06/10/2011 BAZAN DO, TONY K 522.5 PERIAPICAL ABSCESS WITHOUT SINUS 06/10/2011 JOSE DAVIDSON DDS 522.5 PERIAPICAL ABSCESS WITHOUT SINUS 06/10/2011 RAFAELA MCHUGH APRN T 522.5 PERIAPICAL ABSCESS WITHOUT SINUS 06/10/2011 RAFAELA MCHUGH APRN T 522.5 PERIAPICAL ABSCESS WITHOUT SINUS 06/10/2011 BAZAN , TONY K 522.5 PERIAPICAL ABSCESS WITHOUT SINUS 06/10/2011 VICTOR M RAMOS APRN 522.5 PERIAPICAL ABSCESS WITHOUT SINUS 06/10/2011 RAFAELA MCHUGH APRN T 522.5 PERIAPICAL ABSCESS WITHOUT SINUS 06/10/2011 RAJOTTJEANNINE Kirkpatrick APRNYL A 522.5 PERIAPICAL ABSCESS WITHOUT SINUS 06/10/2011 RAFAELA MCHUGH APRN T 522.5 PERIAPICAL ABSCESS WITHOUT SINUS 06/10/2011 ANDERSON MCCORD APRN 522.5 PERIAPICAL ABSCESS WITHOUT SINUS 08/31/2011 634.90 , SPONTANEOUS UNSPECIFIED WITHOUT COMPLICATION 08/31/2011 V17.49 FAM HX CAD (DISEASE) 08/31/2011 V18.0 FAM HX DIABETES MELLITUS 08/31/2011 V26.41 FERTILITY COUNSELING 08/31/2011 634.90 , SPONTANEOUS UNSPECIFIED WITHOUT COMPLICATION 08/31/2011 V17.49 FAM HX CAD (DISEASE) 08/31/2011 V18.0 FAM HX DIABETES MELLITUS 08/31/2011 V26.41 FERTILITY COUNSELING 08/31/2011 TONY BAZAN DO 634.90 , SPONTANEOUS UNSPECIFIED WITHOUT COMPLICATION 08/31/2011 TONY BAZAN DO V17.49 FAM HX CAD (DISEASE) 08/31/2011 TONY BAZAN DO V18.0 FAM HX DIABETES MELLITUS 08/31/2011 TONY BAZAN DO V26.41 FERTILITY COUNSELING 08/31/2011 634.90 , SPONTANEOUS UNSPECIFIED WITHOUT COMPLICATION 08/31/2011 V17.49 FAM HX CAD (DISEASE) 08/31/2011 V18.0 FAM HX DIABETES MELLITUS 08/31/2011 V26.41 FERTILITY COUNSELING 08/31/2011 634.90 , SPONTANEOUS UNSPECIFIED WITHOUT COMPLICATION 08/31/2011 V17.49 FAM HX CAD (DISEASE) 08/31/2011 V18.0 FAM HX DIABETES MELLITUS 08/31/2011 V26.41 FERTILITY COUNSELING 08/31/2011 TONY BAZAN DO 634.90 , SPONTANEOUS UNSPECIFIED WITHOUT COMPLICATION 08/31/2011 TONY BAZAN DO V17.49 FAM HX CAD (DISEASE) 08/31/2011 TONY BAZAN DO V18.0 FAM HX DIABETES MELLITUS 08/31/2011 TONY BAZAN DO K V26.41 FERTILITY COUNSELING 08/31/2011 EDNA BAZAN DOA K 634.90 , SPONTANEOUS UNSPECIFIED WITHOUT COMPLICATION 08/31/2011 TONY BAZAN DO V17.49 FAM HX CAD (DISEASE) 08/31/2011 EDNA BAZAN DOA K V18.0 FAM HX DIABETES MELLITUS 08/31/2011 EDNA BAZAN DOA K V26.41 FERTILITY COUNSELING 08/31/2011 RAFAELA MCHUGH APRN 634.90 , SPONTANEOUS UNSPECIFIED WITHOUT COMPLICATION 08/31/2011 RAFAELA MCHUGH APRN V17.49 FAM HX CAD (DISEASE) 08/31/2011 RAFAELA MCHUGH APRN V18.0 FAM HX DIABETES MELLITUS 08/31/2011 RAFAELA MCHUGH APRN V26.41 FERTILITY COUNSELING 08/31/2011 BAZAN DO, TONY K 634.90 , SPONTANEOUS UNSPECIFIED WITHOUT COMPLICATION 08/31/2011 BAZAN DO, TONY K V17.49 FAM HX CAD (DISEASE) 08/31/2011 BAZAN DO, TONY K V18.0 FAM HX DIABETES MELLITUS 08/31/2011 BAZAN DO, TONY K V26.41 FERTILITY COUNSELING 08/31/2011 YUSUF BONILLA APRNINA R 634.90 , SPONTANEOUS UNSPECIFIED WITHOUT COMPLICATION 08/31/2011 MANUEL BONILLA APRN R V17.49 FAM HX CAD (DISEASE) 08/31/2011 YUSUF BONILLA APRNINA R V18.0 FAM HX DIABETES MELLITUS 08/31/2011 IRENE RUTH MANUEL R V26.41 FERTILITY COUNSELING 08/31/2011 RAFAELA MCHUGH APRN 634.90 , SPONTANEOUS UNSPECIFIED WITHOUT COMPLICATION 08/31/2011 RAFAELA MCHUGH APRN V17.49 FAM HX CAD (DISEASE) 08/31/2011 RAFAELA MCHUGH APRN V18.0 FAM HX DIABETES MELLITUS 08/31/2011 RAFAELA MCHUGH APRN V26.41 FERTILITY COUNSELING 08/31/2011 WHITE DDS, HONEY D 634.90 , SPONTANEOUS UNSPECIFIED WITHOUT COMPLICATION 08/31/2011 WHITE DDS, HONEY D V17.49 FAM HX CAD (DISEASE) 08/31/2011 WHITE DDS, HONEY D V18.0 FAM HX DIABETES MELLITUS 08/31/2011 WHITE DDS, HONEY D V26.41 FERTILITY COUNSELING 08/31/2011 RAFAELA MCHUGH APRN 634.90 , SPONTANEOUS UNSPECIFIED WITHOUT COMPLICATION 08/31/2011 RAFAELA MCHUGH APRN V17.49 FAM HX CAD (DISEASE) 08/31/2011 RAFAELA MCHUGH APRN V18.0 FAM HX DIABETES MELLITUS 08/31/2011 RAFAELA MCHUGH APRN V26.41 FERTILITY COUNSELING 08/31/2011 BAZAN DO, TONY K 634.90 , SPONTANEOUS UNSPECIFIED WITHOUT COMPLICATION 08/31/2011 BAZAN DO, TONY K V17.49 FAM HX CAD (DISEASE) 08/31/2011 BAZAN DO, TONY K V18.0 FAM HX DIABETES MELLITUS 08/31/2011 BAZAN TONY K V26.41 FERTILITY COUNSELING 08/31/2011 GERI RUTH LUCIE A 634.90 , SPONTANEOUS UNSPECIFIED WITHOUT COMPLICATION 08/31/2011 GERI RUTH LUCIE A V17.49 FAM HX CAD (DISEASE) 08/31/2011 GERI RUTH LUCIE A V18.0 FAM HX DIABETES MELLITUS 08/31/2011 GERI AVENDAÑOLUCIE Roper A V26.41 FERTILITY COUNSELING 08/31/2011 BENI DOEDNAA K 634.90 , SPONTANEOUS UNSPECIFIED WITHOUT COMPLICATION 08/31/2011 BAZAN DO TONY K V17.49 FAM HX CAD (DISEASE) 08/31/2011 BAZAN EDNA MARMOLEJOA K V18.0 FAM HX DIABETES MELLITUS 08/31/2011 EDNA BAZAN DOA K V26.41 FERTILITY COUNSELING 08/31/2011 DAVIDSON DDSJOSE 634.90 , SPONTANEOUS UNSPECIFIED WITHOUT COMPLICATION 08/31/2011 DAVIDSON DDSJOSE V17.49 FAM HX CAD (DISEASE) 08/31/2011 DAVIDSON DDS, JOSE V18.0 FAM HX DIABETES MELLITUS 08/31/2011 DAVIDSON DDS, JOSE V26.41 FERTILITY COUNSELING 08/31/2011 RAFAELA MCHUGH APRN 634.90 , SPONTANEOUS UNSPECIFIED WITHOUT COMPLICATION 08/31/2011 RAFAELA MCHUGH APRN V17.49 FAM HX CAD (DISEASE) 08/31/2011 RAFAELA MCHUGH APRN V18.0 FAM HX DIABETES MELLITUS 08/31/2011 RAFAELA MCHUGH APRN V26.41 FERTILITY COUNSELING 08/31/2011 RAFAELA MCHUGH APRN 634.90 , SPONTANEOUS UNSPECIFIED WITHOUT COMPLICATION 08/31/2011 RAFAELA MCHUGH APRN V17.49 FAM HX CAD (DISEASE) 08/31/2011 RAFAELA MCHUGH APRN V18.0 FAM HX DIABETES MELLITUS 08/31/2011 RAFAELA MCHUGH APRN V26.41 FERTILITY COUNSELING 08/31/2011 TONY BAZAN DO 634.90 , SPONTANEOUS UNSPECIFIED WITHOUT COMPLICATION 08/31/2011 TONY BAZAN DO K V17.49 FAM HX CAD (DISEASE) 08/31/2011 BAZAN DO, TONY K V18.0 FAM HX DIABETES MELLITUS 08/31/2011 BENI MARMOLEJO TONY K V26.41 FERTILITY COUNSELING 08/31/2011 RACHEL RUTH VICTOR M L 634.90 , SPONTANEOUS UNSPECIFIED WITHOUT COMPLICATION 08/31/2011 VICTOR M RAMOS APRN L V17.49 FAM HX CAD (DISEASE) 08/31/2011 VICTOR M RAMOS APRN L V18.0 FAM HX DIABETES MELLITUS 08/31/2011 RACHEL RUTH VICTOR M L V26.41 FERTILITY COUNSELING 08/31/2011 RAFAELA MCHUGH APRN 634.90 , SPONTANEOUS UNSPECIFIED WITHOUT COMPLICATION 08/31/2011 RAFAELA MCHUGH APRN V17.49 FAM HX CAD (DISEASE) 08/31/2011 RAFAELA MCHUGH APRN V18.0 FAM HX DIABETES MELLITUS 08/31/2011 RAFAELA MCHUGH APRN V26.41 FERTILITY COUNSELING 08/31/2011 JULIA RFANCO APRN A 634.90 , SPONTANEOUS UNSPECIFIED WITHOUT COMPLICATION 08/31/2011 JULIA FRANCO APRN V17.49 FAM HX CAD (DISEASE) 08/31/2011 JULIA FRANCO APRN A V18.0 FAM HX DIABETES MELLITUS 08/31/2011 JULIA FRANCO APRN A V26.41 FERTILITY COUNSELING 08/31/2011 RAFAELA MCHUGH APRN 634.90 , SPONTANEOUS UNSPECIFIED WITHOUT COMPLICATION 08/31/2011 RAFAELA MCHUGH APRN V17.49 FAM HX CAD (DISEASE) 08/31/2011 RAFAELA MCHUGH APRN V18.0 FAM HX DIABETES MELLITUS 08/31/2011 RAFAELA MCHUGH APRN V26.41 FERTILITY COUNSELING 08/31/2011 ANDERSON MCCORD APRN R 634.90 , SPONTANEOUS UNSPECIFIED WITHOUT COMPLICATION 08/31/2011 ANDERSON CMCORD APRN R V17.49 FAM HX CAD (DISEASE) 08/31/2011 ANDERSON MCCORD APRN R V18.0 FAM HX DIABETES MELLITUS 08/31/2011 ANDERSON MCCORD APRN R V26.41 FERTILITY COUNSELING 09/17/2011 564.00 CONSTIPATION 09/17/2011 V74.5 STD SCREEN 09/17/2011 V76.2 CERVICAL CANCER SCREENING (PAP SMEAR) 09/17/2011 564.00 CONSTIPATION 09/17/2011 V74.5 STD SCREEN 09/17/2011 V76.2 CERVICAL CANCER SCREENING (PAP SMEAR) 09/17/2011 BENI MARMOLEJO TONY K 564.00 CONSTIPATION 09/17/2011 EDNA BAZAN DOA K V74.5 STD SCREEN 09/17/2011 BENI MARMOLEJO OTNY K V76.2 CERVICAL CANCER SCREENING (PAP SMEAR) 09/17/2011 564.00 CONSTIPATION 09/17/2011 V74.5 STD SCREEN 09/17/2011 V76.2 CERVICAL CANCER SCREENING (PAP SMEAR) 09/17/2011 564.00 CONSTIPATION 09/17/2011 V74.5 STD SCREEN 09/17/2011 V76.2 CERVICAL CANCER SCREENING (PAP SMEAR) 09/17/2011 BAZAN DOEDNAA K 564.00 CONSTIPATION 09/17/2011 BENI MARMOLEJO TONY K V74.5 STD SCREEN 09/17/2011 BENI MARMOLEJO TONY K V76.2 CERVICAL CANCER SCREENING (PAP SMEAR) 09/17/2011 BENI MARMOLEJOEDNAA K 564.00 CONSTIPATION 09/17/2011 BENI MARMOLEJO TONY K V74.5 STD SCREEN 09/17/2011 BENI MARMOLEJOEDANA K V76.2 CERVICAL CANCER SCREENING (PAP SMEAR) 09/17/2011 RAFAELA MCHUGH APRN 564.00 CONSTIPATION 09/17/2011 RAFAELA MCHUGH APRN V74.5 STD SCREEN 09/17/2011 RAFAELA MCHUGH APRN V76.2 CERVICAL CANCER SCREENING (PAP SMEAR) 09/17/2011 BAZAN EDNA MARMOLEJOA K 564.00 CONSTIPATION 09/17/2011 BENI MARMOLEJOEDNAA K V74.5 STD SCREEN 09/17/2011 BENI MARMOLEJOEDNAA K V76.2 CERVICAL CANCER SCREENING (PAP SMEAR) 09/17/2011 MANUEL BONILLA APRN R 564.00 CONSTIPATION 09/17/2011 MANUEL BONILLA APRN R V74.5 STD SCREEN 09/17/2011 MANUEL BONILLA APRN R V76.2 CERVICAL CANCER SCREENING (PAP SMEAR) 09/17/2011 RAFAELA MCHUGH APRN 564.00 CONSTIPATION 09/17/2011 RAFAELA MCHUGH APRN V74.5 STD SCREEN 09/17/2011 RAFAELA MCHUGH APRN V76.2 CERVICAL CANCER SCREENING (PAP SMEAR) 09/17/2011 WHITE DDS, HONEY D 564.00 CONSTIPATION 09/17/2011 WHITE DDS, HONEY Crump V74.5 STD SCREEN 09/17/2011 WHITE DDS, HONEY Crump V76.2 CERVICAL CANCER SCREENING (PAP SMEAR) 09/17/2011 RAFAELA MCHUGH APRN 564.00 CONSTIPATION 09/17/2011 RAFAELA MCHUGH APRN V74.5 STD SCREEN 09/17/2011 RAFAELA MCHUGH APRN V76.2 CERVICAL CANCER SCREENING (PAP SMEAR) 09/17/2011 BENI MARMOLEJO TONY K 564.00 CONSTIPATION 09/17/2011 BAZAN DO, TONY K V74.5 STD SCREEN 09/17/2011 BENI MARMOLEJO TONY K V76.2 CERVICAL CANCER SCREENING (PAP SMEAR) 09/17/2011 LUCIE NEVAREZ APRN A 564.00 CONSTIPATION 09/17/2011 LUZ NEVAREZ APRNIDI A V74.5 STD SCREEN 09/17/2011 LUCIE NEVAREZ APRN A V76.2 CERVICAL CANCER SCREENING (PAP SMEAR) 09/17/2011 EDNA BAZAN DOA K 564.00 CONSTIPATION 09/17/2011 BENI MARMOLEJO TONY K V74.5 STD SCREEN 09/17/2011 EDNA BAZAN DOA K V76.2 CERVICAL CANCER SCREENING (PAP SMEAR) 09/17/2011 JOSE DAVIDSON DDS 564.00 CONSTIPATION 09/17/2011 DAVIDSON DDSJOSE V74.5 STD SCREEN 09/17/2011 LETY RODRIGUEZS, JOSE V76.2 CERVICAL CANCER SCREENING (PAP SMEAR) 09/17/2011 RAFAELA MCHUGH APRN 564.00 CONSTIPATION 09/17/2011 RAFAELA MCHUGH APRN V74.5 STD SCREEN 09/17/2011 RAFAELA MCHUGH APRN V76.2 CERVICAL CANCER SCREENING (PAP SMEAR) 09/17/2011 RAFAELA MCHUGH APRN 564.00 CONSTIPATION 09/17/2011 RAFAELA MCHUGH APRN V74.5 STD SCREEN 09/17/2011 RAFAELA MCHUGH APRN V76.2 CERVICAL CANCER SCREENING (PAP SMEAR) 09/17/2011 BENI MARMOLEJO TONY K 564.00 CONSTIPATION 09/17/2011 BAZAN DO TONY K V74.5 STD SCREEN 09/17/2011 BENI MARMOLEJO TONY K V76.2 CERVICAL CANCER SCREENING (PAP SMEAR) 09/17/2011 VICTOR M RAMOS APRN L 564.00 CONSTIPATION 09/17/2011 RACHEL VICTOR M RUTH V74.5 STD SCREEN 09/17/2011 RACHEL AVENDAÑOVICTOR M Roper L V76.2 CERVICAL CANCER SCREENING (PAP SMEAR) 09/17/2011 RAFAELA MCHUGH APRN 564.00 CONSTIPATION 09/17/2011 RAFAELA MCHUGH APRN V74.5 STD SCREEN 09/17/2011 RAFAELA MCHUGH APRN V76.2 CERVICAL CANCER SCREENING (PAP SMEAR) 09/17/2011 JULIA FRANCO APRN A 564.00 CONSTIPATION 09/17/2011 JULIA FRANCO APRN A V74.5 STD SCREEN 09/17/2011 JULIA FRANCO APRN A V76.2 CERVICAL CANCER SCREENING (PAP SMEAR) 09/17/2011 RAFAELA MCHUGH APRN 564.00 CONSTIPATION 09/17/2011 RAFAELA MCHUGH APRN V74.5 STD SCREEN 09/17/2011 RAFAELA MCHUGH APRN V76.2 CERVICAL CANCER SCREENING (PAP SMEAR) 09/17/2011 ANDERSON MCCORD APRN R 564.00 CONSTIPATION 09/17/2011 ANDERSON MCCORD APRN R V74.5 STD SCREEN 09/17/2011 ANDERSON MCCORD APRN R V76.2 CERVICAL CANCER SCREENING (PAP SMEAR ) 03/08/2012 296.90 MOOD DISORDER 03/08/2012 296.90 MOOD DISORDER 03/08/2012 TONY BAZAN DO K 296.90 MOOD DISORDER 03/08/2012 296.90 MOOD DISORDER 03/08/2012 296.90 MOOD DISORDER 03/08/2012 BENI MARMOLEJO TONY K 296.90 MOOD DISORDER 03/08/2012 BENI MARMOLEJO TONY K 296.90 MOOD DISORDER 03/08/2012 RAFAELA MCHUGH APRN 296.90 MOOD DISORDER 03/08/2012 BAZAN EDNA MARMOLEJOA K 296.90 MOOD DISORDER 03/08/2012 MANUEL BONILLA APRN 296.90 MOOD DISORDER 03/08/2012 RAFAELA MCHUGH APRN 296.90 MOOD DISORDER 03/08/2012 HONEY CASTILLO DDS 296.90 MOOD DISORDER 03/08/2012 RAFAELA MCHUGH APRN 296.90 MOOD DISORDER 03/08/2012 BAZAN DO, TONY K 296.90 MOOD DISORDER 03/08/2012 GERI APRN, LUCIE A 296.90 MOOD DISORDER 03/08/2012 BAZAN DO, TONY K 296.90 MOOD DISORDER 03/08/2012 JOSE DAVIDSON DDS 296.90 MOOD DISORDER 03/08/2012 RAFAELA MCHUGH APRN 296.90 MOOD DISORDER 03/08/2012 RAFAELA MCHUGH APRN 296.90 MOOD DISORDER 03/08/2012 BAZAN DO, TONY K 296.90 MOOD DISORDER 03/08/2012 MADAris TEST 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, VICTOR M L 296.90 MOOD DISORDER 03/08/2012 RAFAELA MCHUGH APRN 296.90 MOOD DISORDER 03/08/2012 RAJOTTE TEST 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, JULIA A 296.90 MOOD DISORDER 03/08/2012 RAFAELA MCHUGH APRN 296.90 MOOD DISORDER 03/08/2012 ANDERSON MCCORD APRN 296.90 MOOD DISORDER 08/02/2012 461.9 SINUSITIS ACUTE 08/02/2012 461.9 SINUSITIS ACUTE 08/02/2012 BAZAN DO, TONY K 461.9 SINUSITIS ACUTE 08/02/2012 461.9 SINUSITIS ACUTE 08/02/2012 461.9 SINUSITIS ACUTE 08/02/2012 BAZAN DO, TONY K 461.9 SINUSITIS ACUTE 08/02/2012 BAZAN DO, TONY K 461.9 SINUSITIS ACUTE 08/02/2012 RAFAELA MCHUGH APRN 461.9 SINUSITIS ACUTE 08/02/2012 BAZAN DO TONY K 461.9 SINUSITIS ACUTE 08/02/2012 MANUEL BONILLA APRN 461.9 SINUSITIS ACUTE 08/02/2012 RAFAELA MCHUGH APRN 461.9 SINUSITIS ACUTE 08/02/2012 HONEY CASTILLO DDS 461.9 SINUSITIS ACUTE 08/02/2012 RAFAELA MCHUGH APRN 461.9 SINUSITIS ACUTE 08/02/2012 BAZAN DO TONY K 461.9 SINUSITIS ACUTE 08/02/2012 LUZ NEVAREZ APRNIDI A 461.9 SINUSITIS ACUTE 08/02/2012 BAZAN DO TONY K 461.9 SINUSITIS ACUTE 08/02/2012 JOSE DAVIDSON DDS 461.9 SINUSITIS ACUTE 08/02/2012 RAFAELA MCHUGH APRN 461.9 SINUSITIS ACUTE 08/02/2012 RAFAELA MCHUGH APRN 461.9 SINUSITIS ACUTE 08/02/2012 TONY BAZAN DO K 461.9 SINUSITIS ACUTE 08/02/2012 VICTOR M RAMOS APRN 461.9 SINUSITIS ACUTE 08/02/2012 RAFAELA MCHUGH APRN 461.9 SINUSITIS ACUTE 08/02/2012 JULIA FRANCO APRN A 461.9 SINUSITIS ACUTE 08/02/2012 RAFAELA MCHUGH APRN 461.9 SINUSITIS ACUTE 08/02/2012 ANDERSON MCCORD APRN 461.9 SINUSITIS ACUTE 08/22/2012 787.02 nausea 08/22/2012 BAZAN DO, TONY K 787.02 nausea 08/22/2012 787.02 NAUSEA 08/22/2012 787.02 NAUSEA 08/22/2012 BAZAN DO, TONY K 787.02 NAUSEA 08/22/2012 BAZAN DO, TONY K 787.02 NAUSEA 08/22/2012 RAFAELA MCHUGH APRN 787.02 NAUSEA 08/22/2012 BAZAN DO, TONY K 787.02 NAUSEA 08/22/2012 MANUEL BONILLA APRN R 787.02 NAUSEA 08/22/2012 RAFAELA MCHUGH APRN 787.02 NAUSEA 08/22/2012 HONEY CASTILLO DDS 787.02 NAUSEA 08/22/2012 RAFAELA MCHUGH APRN 787.02 NAUSEA 08/22/2012 BAZAN DO, TONY K 787.02 NAUSEA 08/22/2012 LUCIE NEVAREZ APRN A 787.02 NAUSEA 08/22/2012 BAZAN DO TONY K 787.02 NAUSEA 08/22/2012 JOSE DAVIDSON DDS 787.02 NAUSEA 08/22/2012 RAFAELA MCHUGH APRN 787.02 NAUSEA 08/22/2012 RAFAELA MCHUGH APRN 787.02 NAUSEA 08/22/2012 BAZAN DO TONY K 787.02 NAUSEA 08/22/2012 VICTOR M RAMOS APRN 787.02 NAUSEA 08/22/2012 RAFAELA MCHUGH APRN 787.02 NAUSEA 08/22/2012 JULIA FRANCO APRN A 787.02 NAUSEA 08/22/2012 RAFAELA MCHUGH APRN 787.02 NAUSEA 08/22/2012 ANDERSON MCCORD APRN 787.02 NAUSEA 08/25/2012 EDNA BAZAN DOA K 462 PHARYNGITIS ACUTE 08/25/2012 TONY BAZAN DO K 487.1 INFLUENZA WITH OTHER RESPIRATORY MANIFESTATIONS 08/25/2012 EDNA BAZAN DOA K 786.2 COUGH 08/25/2012 462 PHARYNGITIS ACUTE 08/25/2012 487.1 INFLUENZA WITH OTHER RESPIRATORY MANIFESTATIONS 08/25/2012 786.2 COUGH 08/25/2012 462 PHARYNGITIS ACUTE 08/25/2012 487.1 INFLUENZA WITH OTHER RESPIRATORY MANIFESTATIONS 08/25/2012 786.2 COUGH 08/25/2012 EDNA BAZAN DOA K 462 PHARYNGITIS ACUTE 08/25/2012 EDNA BAZAN DOA K 487.1 INFLUENZA WITH OTHER RESPIRATORY MANIFESTATIONS 08/25/2012 EDNA BAZAN DOA K 786.2 COUGH 08/25/2012 EDNA BAZAN DOA K 462 PHARYNGITIS ACUTE 08/25/2012 TONY BAZAN DO K 487.1 INFLUENZA WITH OTHER RESPIRATORY MANIFESTATIONS 08/25/2012 EDNA BAZAN DOA K 786.2 COUGH 08/25/2012 RAFAELA MCHUGH APRN T 462 PHARYNGITIS ACUTE 08/25/2012 RAFAELA MCHUGH APRN 487.1 INFLUENZA WITH OTHER RESPIRATORY MANIFESTATIONS 08/25/2012 RAFAELA MCHUGH APRN 786.2 COUGH 08/25/2012 EDNA BAZAN DOA K 462 PHARYNGITIS ACUTE 08/25/2012 EDNA BAZAN DOA K 487.1 INFLUENZA WITH OTHER RESPIRATORY MANIFESTATIONS 08/25/2012 TONY BAZAN DO K 786.2 COUGH 08/25/2012 IRENE AVENDAÑON, MANUEL R 462 PHARYNGITIS ACUTE 08/25/2012 IRENE AVENDAÑON, MANUEL R 487.1 INFLUENZA WITH OTHER RESPIRATORY MANIFESTATIONS 08/25/2012 IRENE RUTH, MANUEL R 786.2 COUGH 08/25/2012 RAFAELA MCHUGH APRN T 462 PHARYNGITIS ACUTE 08/25/2012 RAFAELA MCHUGH APRN T 487.1 INFLUENZA WITH OTHER RESPIRATORY MANIFESTATIONS 08/25/2012 RAFAELA MCHUGH APRN T 786.2 COUGH 08/25/2012 WHITE DDS, HONEY D 462 PHARYNGITIS ACUTE 08/25/2012 WHITE DDS, HONEY D 487.1 INFLUENZA WITH OTHER RESPIRATORY MANIFESTATIONS 08/25/2012 WHITE DDS, HONEY Crump 786.2 COUGH 08/25/2012 RAFAELA MCHUGH APRN T 462 PHARYNGITIS ACUTE 08/25/2012 RAFAELA MCHUGH APRN T 487.1 INFLUENZA WITH OTHER RESPIRATORY MANIFESTATIONS 08/25/2012 RAFAELA MCHUGH APRN T 786.2 COUGH 08/25/2012 BAZAN DO, TONY K 462 PHARYNGITIS ACUTE 08/25/2012 BAZAN DO, TONY K 487.1 INFLUENZA WITH OTHER RESPIRATORY MANIFESTATIONS 08/25/2012 BAZAN DO, TONY K 786.2 COUGH 08/25/2012 GERI TEST 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, LUCIE A 462 PHARYNGITIS ACUTE 08/25/2012 GERI TEST 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, LUCIE A 487.1 INFLUENZA WITH OTHER RESPIRATORY MANIFESTATIONS 08/25/2012 GERI TEST 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, LUCIE A 786.2 COUGH 08/25/2012 BAZAN DO, TONY K 462 PHARYNGITIS ACUTE 08/25/2012 BAZAN DO, TONY K 487.1 INFLUENZA WITH OTHER RESPIRATORY MANIFESTATIONS 08/25/2012 BAZAN DO, TONY K 786.2 COUGH 08/25/2012 DAVIDSON DDS, JOSE 462 PHARYNGITIS ACUTE 08/25/2012 DAVIDSON DDS, JOSE 487.1 INFLUENZA WITH OTHER RESPIRATORY MANIFESTATIONS 08/25/2012 DAVIDSON DDS, JOSE 786.2 COUGH 08/25/2012 RAFAELA MCHUGH APRN T 462 PHARYNGITIS ACUTE 08/25/2012 RAFAELA MCHUGH APRN T 487.1 INFLUENZA WITH OTHER RESPIRATORY MANIFESTATIONS 08/25/2012 RAFAELA MCHUGH APRN T 786.2 COUGH 08/25/2012 RAFAELA MCHUGH APRN T 462 PHARYNGITIS ACUTE 08/25/2012 RAFAELA MCHUGH APRN T 487.1 INFLUENZA WITH OTHER RESPIRATORY MANIFESTATIONS 08/25/2012 RAFAELA MCHUGH APRN T 786.2 COUGH 08/25/2012 BAZAN DO, TONY K 462 PHARYNGITIS ACUTE 08/25/2012 BAZAN DO, TONY K 487.1 INFLUENZA WITH OTHER RESPIRATORY MANIFESTATIONS 08/25/2012 BAZAN DO, TONY K 786.2 COUGH 08/25/2012 MADL TEST 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, VICTOR M L 462 PHARYNGITIS ACUTE 08/25/2012 MADL TEST 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, VICTOR M L 487.1 INFLUENZA WITH OTHER RESPIRATORY MANIFESTATIONS 08/25/2012 MADL TEST 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, VICTOR M L 786.2 COUGH 08/25/2012 RAFAELA MCHUGH APRN T 462 PHARYNGITIS ACUTE 08/25/2012 JEISON AVENDAÑON, RAFAELA T 487.1 INFLUENZA WITH OTHER RESPIRATORY MANIFESTATIONS 08/25/2012 JEISON AVENDAÑON, RAFAELA T 786.2 COUGH 08/25/2012 RAJOTTE TEST 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, JULIA A 462 PHARYNGITIS ACUTE 08/25/2012 RAJOTTE TEST 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, JULIA A 487.1 INFLUENZA WITH OTHER RESPIRATORY MANIFESTATIONS 08/25/2012 RAJOTTE TEST 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, JULIA A 786.2 COUGH 08/25/2012 RAFAELA MCHUGH APRN T 462 PHARYNGITIS ACUTE 08/25/2012 RAFAELA MCHUGH APRN T 487.1 INFLUENZA WITH OTHER RESPIRATORY MANIFESTATIONS 08/25/2012 JEISON AVENDAÑON, RAFAELA T 786.2 COUGH 08/25/2012 FLEX RUTH, ANDERSON R 462 PHARYNGITIS ACUTE 08/25/2012 FLEX RUTH ANDERSON R 487.1 INFLUENZA WITH OTHER RESPIRATORY MANIFESTATIONS 08/25/2012 FLEX RUTH, ANDERSON R 786.2 COUGH 12/30/2012 LESLY GUILLEN, SHAN Crump Ot 493.90 ASTHMA, UNSPECIFIED 12/30/2012 LESLY GUILLEN, SHAN Crump Ot 786.05 SHORTNESS OF BREATH 04/17/2013 TONY BAZAN DO K V04.81 FLU DX (3 YRS AND ABOVE, IM) 04/17/2013 TONY BAZAN DO K V04.81 FLU DX (3 YRS AND ABOVE, IM) 04/17/2013 RAFAELA MCHUGH APRN V04.81 FLU DX (3 YRS AND ABOVE, IM) 04/17/2013 TONY BAZAN DO K V04.81 FLU DX (3 YRS AND ABOVE, IM) 04/17/2013 MANUEL BONILLA APRN R V04.81 FLU DX (3 YRS AND ABOVE, IM) 04/17/2013 RAFAELA MCHUGH APRN V04.81 FLU DX (3 YRS AND ABOVE, IM) 04/17/2013 JONATHAN RODRIGUEZSHONEY V04.81 FLU DX (3 YRS AND ABOVE, IM) 04/17/2013 RAFAELA MCHUGH APRN V04.81 FLU DX (3 YRS AND ABOVE, IM) 04/17/2013 BAZAN DO, TONY K V04.81 FLU DX (3 YRS AND ABOVE, IM) 04/17/2013 GERI AVENDAÑON, LUCIE A V04.81 FLU DX (3 YRS AND ABOVE, IM) 04/17/2013 BAZAN DO, TONY K V04.81 FLU DX (3 YRS AND ABOVE, IM) 04/17/2013 LETY PURCELL, JOSE V04.81 FLU DX (3 YRS AND ABOVE, IM) 04/17/2013 RAFAELA MCHUGH APRN T V04.81 FLU DX (3 YRS AND ABOVE, IM) 04/17/2013 RAFAELA MCHUGH APRN T V04.81 FLU DX (3 YRS AND ABOVE, IM) 04/17/2013 BAZAN DO, TONY K V04.81 FLU DX (3 YRS AND ABOVE, IM) 04/17/2013 RACHEL URTH, VICTOR M Hurst V04.81 FLU DX (3 YRS AND ABOVE, IM) 04/17/2013 RAFAELA MCHUGH APRN T V04.81 FLU DX (3 YRS AND ABOVE, IM) 04/17/2013 SALVADOR RUTH, JULIA A V04.81 FLU DX (3 YRS AND ABOVE, IM) 04/17/2013 RAFAELA MCHUGH APRN T V04.81 FLU DX (3 YRS AND ABOVE, IM) 04/17/2013 ANDERSON MCCORD APRN R V04.81 FLU DX (3 YRS AND ABOVE, IM) 08/07/2013 RAFAELA MCHUGH APRN T 465.9 UPPER RESPIRATORY INFECTION 08/07/2013 EDNA BAZAN DOA K 465.9 UPPER RESPIRATORY INFECTION 08/07/2013 MANUEL BONILLA APRN R 465.9 UPPER RESPIRATORY INFECTION 08/07/2013 RAFAELA MCHUGH APRN T 465.9 UPPER RESPIRATORY INFECTION 08/07/2013 HONEY CASTILLO DDS 465.9 UPPER RESPIRATORY INFECTION 08/07/2013 RAFAELA MCHUGH APRN 465.9 UPPER RESPIRATORY INFECTION 08/07/2013 BAZAN DO, TONY K 465.9 UPPER RESPIRATORY INFECTION 08/07/2013 GERI RUTH, LUCIE A 465.9 UPPER RESPIRATORY INFECTION 08/07/2013 BAZAN DO, TONY K 465.9 UPPER RESPIRATORY INFECTION 08/07/2013 JOSE DAVIDSON DDS 465.9 UPPER RESPIRATORY INFECTION 08/07/2013 RAFAELA MCHUGH APRN 465.9 UPPER RESPIRATORY INFECTION 08/07/2013 RAFAELA MCHUGH APRN 465.9 UPPER RESPIRATORY INFECTION 08/07/2013 BAZAN DO, TONY K 465.9 UPPER RESPIRATORY INFECTION 08/07/2013 RACHEL TEST 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VICTOR M Roper L 465.9 UPPER RESPIRATORY INFECTION 08/07/2013 RAFAELA MCHUGH APRN 465.9 UPPER RESPIRATORY INFECTION 08/07/2013 SALVADOR TEST 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JEANNINEYL A 465.9 UPPER RESPIRATORY INFECTION 08/07/2013 RAFAELA MCHUGH APRN 465.9 UPPER RESPIRATORY INFECTION 08/07/2013 FLEX TEST 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ANDERSON Roper R 465.9 UPPER RESPIRATORY INFECTION 09/11/2013 BAZAN DO, TONY K 682.9 CELLULITIS AND ABSCESS OF UNSPECIFIED SITES 09/11/2013 MANUEL BONILLA APRN R 682.9 CELLULITIS AND ABSCESS OF UNSPECIFIED SITES 09/11/2013 ARFAELA MCHUGH APRN 682.9 CELLULITIS AND ABSCESS OF UNSPECIFIED SITES 09/11/2013 JONATHAN DDSHONEY 682.9 CELLULITIS AND ABSCESS OF UNSPECIFIED SITES 09/11/2013 RAFAELA MCHUGH APRN 682.9 CELLULITIS AND ABSCESS OF UNSPECIFIED SITES 09/11/2013 BAZAN DO, TONY K 682.9 CELLULITIS AND ABSCESS OF UNSPECIFIED SITES 09/11/2013 LUCIE NEVAREZ APRN A 682.9 CELLULITIS AND ABSCESS OF UNSPECIFIED SITES 09/11/2013 BAZAN DO, TONY K 682.9 CELLULITIS AND ABSCESS OF UNSPECIFIED SITES 09/11/2013 LETY RODRIGUEZSJOSE 682.9 CELLULITIS AND ABSCESS OF UNSPECIFIED SITES 09/11/2013 RAFAELA MCHUGH APRN 682.9 CELLULITIS AND ABSCESS OF UNSPECIFIED SITES 09/11/2013 RAFAELA MCHUGH APRN 682.9 CELLULITIS AND ABSCESS OF UNSPECIFIED SITES 09/11/2013 BAZAN DO, TONY K 682.9 CELLULITIS AND ABSCESS OF UNSPECIFIED SITES 09/11/2013 VICTOR M RAMOS APRN L 682.9 CELLULITIS AND ABSCESS OF UNSPECIFIED SITES 09/11/2013 RAFAELA MHCUGH APRN 682.9 CELLULITIS AND ABSCESS OF UNSPECIFIED SITES 09/11/2013 JULIA FRANCO APRN A 682.9 CELLULITIS AND ABSCESS OF UNSPECIFIED SITES 09/11/2013 RAFAELA MCHUGH APRN 682.9 CELLULITIS AND ABSCESS OF UNSPECIFIED SITES 09/11/2013 ANDERSON MCCORD APRN R 682.9 CELLULITIS AND ABSCESS OF UNSPECIFIED SITES 10/12/2013 RAFAELA MCHUGH APRN T 346.90 HEADACHE, MIGRAINE 10/12/2013 WHITE DDS, HONEY D 346.90 HEADACHE, MIGRAINE 10/12/2013 RAFAELA MCHUGH APRN T 346.90 HEADACHE, MIGRAINE 10/12/2013 BAZAN DO, TONY K 346.90 HEADACHE, MIGRAINE 10/12/2013 GERIEMILIE RUTH LUCIE A 346.90 HEADACHE, MIGRAINE 10/12/2013 BAZAN DO, TONY K 346.90 HEADACHE, MIGRAINE 10/12/2013 DAVIDSON DDS, JOSE 346.90 HEADACHE, MIGRAINE 10/12/2013 RAFAELA MCHUGH APRN 346.90 HEADACHE, MIGRAINE 10/12/2013 RAFAELA MCHUGH APRN T 346.90 HEADACHE, MIGRAINE 10/12/2013 BAZAN DO, TONY K 346.90 HEADACHE, MIGRAINE 10/12/2013 VICTOR M RAMOS APRN L 346.90 HEADACHE, MIGRAINE 10/12/2013 RAFAELA MCHUGH APRN T 346.90 HEADACHE, MIGRAINE 10/12/2013 GARRICKOTTKaya RUTH JULIA A 346.90 HEADACHE, MIGRAINE 10/12/2013 RAFAELA MCHUGH APRN T 346.90 HEADACHE, MIGRAINE 10/12/2013 ANDERSON MCCORD APRN R 346.90 HEADACHE, MIGRAINE 11/27/2013 WHITE DDS, HONEY D 726.32 LATERAL EPICONDYLITIS [place] 11/27/2013 WHITE DDS, HONEY D E849.0 HOME ACCIDENTS 11/27/2013 RAFAELA MCHUGH APRN T 726.32 LATERAL EPICONDYLITIS [place] 11/27/2013 RAFAELA MCHUGH APRN T E849.0 HOME ACCIDENTS 11/27/2013 BAZAN DO, TONY K 726.32 LATERAL EPICONDYLITIS [place] REGION 11/27/2013 BAZAN DO, TONY K E849.0 HOME ACCIDENTS 11/27/2013 GERI RUTH LUCIE A 726.32 LATERAL EPICONDYLITIS [place] REGION 11/27/2013 GERI RUTH LUCIE A E849.0 HOME ACCIDENTS 11/27/2013 BAZAN DO, TONY K 726.32 LATERAL EPICONDYLITIS [place] 11/27/2013 BAZAN DO, TONY K E849.0 HOME ACCIDENTS 11/27/2013 DAVIDSON DDS, JOSE 726.32 LATERAL EPICONDYLITIS [place] REGION 11/27/2013 DAVIDSON DDS, JOSE E849.0 HOME ACCIDENTS 11/27/2013 RAFAELA MCHUGH APRN 726.32 LATERAL EPICONDYLITIS [place] REGION 11/27/2013 RAFAELA MCHUGH APRN E849.0 HOME ACCIDENTS 11/27/2013 RAFAELA MCHUGH APRN 726.32 LATERAL EPICONDYLITIS [place] 11/27/2013 RAFAELA MCHUGH APRN E849.0 HOME ACCIDENTS 11/27/2013 BAZAN DO, TONY K 726.32 LATERAL EPICONDYLITIS [place] 11/27/2013 BAZAN DO, TONY K E849.0 HOME ACCIDENTS 11/27/2013 JEAN-CLAUDE RAMOS APRNA L 726.32 LATERAL EPICONDYLITIS [place] 11/27/2013 JEAN-CLAUDE RAMOS APRNA L E849.0 HOME ACCIDENTS 11/27/2013 RAFAELA MCHUGH APRN 726.32 LATERAL EPICONDYLITIS [place] 11/27/2013 RAFAELA MCHUGH APRN E849.0 HOME ACCIDENTS 11/27/2013 SALVADOR RUTH JULIA A 726.32 LATERAL EPICONDYLITIS [place] REGION 11/27/2013 SALVADOR RUTH JULIA A E849.0 HOME ACCIDENTS 11/27/2013 RAFAELA MCHUGH APRN 726.32 LATERAL EPICONDYLITIS [place] 11/27/2013 RAFAELA MCHUGH APRN E849.0 HOME ACCIDENTS 11/27/2013 DARWIN MCCORD APRNIA R 726.32 LATERAL EPICONDYLITIS [place] 11/27/2013 DARWIN MCCORD APRNIA R E849.0 HOME ACCIDENTS 12/07/2013 RAFAELA MCHUGH APRN 280.9 ANEMIA, IRON DEFICIENCY 12/07/2013 RAFAELA MCHUGH APRN 790.6 LFT (LIVER FUNCTION TEST) ABNORMAL 12/07/2013 BAZAN DO, TONY K 280.9 ANEMIA, IRON DEFICIENCY 12/07/2013 BAZAN DO, TONY K 790.6 LFT (LIVER FUNCTION TEST) ABNORMAL 12/07/2013 LUCIE NEVAREZ APRN A 280.9 ANEMIA, IRON DEFICIENCY 12/07/2013 LUZ NEVAREZ APRNIDI A 790.6 LFT (LIVER FUNCTION TEST) ABNORMAL 12/07/2013 BAZAN DO TONY K 280.9 ANEMIA, IRON DEFICIENCY 12/07/2013 BAZAN DO, TONY K 790.6 LFT (LIVER FUNCTION TEST) ABNORMAL 12/07/2013 DAVIDSON DDS, JOSE 280.9 ANEMIA, IRON DEFICIENCY 12/07/2013 DAVIDSON DDS, JOSE 790.6 LFT (LIVER FUNCTION TEST) ABNORMAL 12/07/2013 ARFAELA MCHUGH APRN 280.9 ANEMIA, IRON DEFICIENCY 12/07/2013 RAFAELA MCHUGH APRN T 790.6 LFT (LIVER FUNCTION TEST) ABNORMAL 12/07/2013 RAFAELA MCHUGH APRN 280.9 ANEMIA, IRON DEFICIENCY 12/07/2013 RAFAELA MCHUHG APRN 790.6 LFT (LIVER FUNCTION TEST) ABNORMAL 12/07/2013 BAZAN DO, TONY K 280.9 ANEMIA, IRON DEFICIENCY 12/07/2013 BAZAN DO TONY K 790.6 LFT (LIVER FUNCTION TEST) ABNORMAL 12/07/2013 MADL TEST 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, VICTOR M L 280.9 ANEMIA, IRON DEFICIENCY 12/07/2013 MADL TEST 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, VICTOR M L 790.6 LFT (LIVER FUNCTION TEST) ABNORMAL 12/07/2013 RAFAELA MCHUGH APRN T 280.9 ANEMIA, IRON DEFICIENCY 12/07/2013 RAFAELA MCHUGH APRN T 790.6 LFT (LIVER FUNCTION TEST) ABNORMAL 12/07/2013 ALYXE TEST 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, JULIA A 280.9 ANEMIA, IRON DEFICIENCY 12/07/2013 RAJOTTE TEST 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, JULIA A 790.6 LFT (LIVER FUNCTION TEST) ABNORMAL 12/07/2013 RAFAELA MCHUGH APRN T 280.9 ANEMIA, IRON DEFICIENCY 12/07/2013 RAFAELA MCHUGH APRN T 790.6 LFT (LIVER FUNCTION TEST) ABNORMAL 12/07/2013 FLEX TEST 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, ANDERSON R 280.9 ANEMIA, IRON DEFICIENCY 12/07/2013 FLEX RUTH ANDERSON R 790.6 LFT (LIVER FUNCTION TEST) ABNORMAL 01/10/2014 BAZAN DO TONY K 726.10 DISORDERS OF BURSAE AND TENDONS IN SHOULDER REGION UNSPECIFIED 01/10/2014 LUCIE NEVAREZ APRN A 726.10 DISORDERS OF BURSAE AND TENDONS IN SHOULDER REGION UNSPECIFIED 01/10/2014 BAZAN DO, TONY K 726.10 DISORDERS OF BURSAE AND TENDONS IN SHOULDER REGION UNSPECIFIED 01/10/2014 LETY PURCELL, JOSE 726.10 DISORDERS OF BURSAE AND TENDONS IN SHOULDER REGION UNSPECIFIED 01/10/2014 RAFAELA MCHUGH APRN 726.10 DISORDERS OF BURSAE AND TENDONS IN SHOULDER REGION UNSPECIFIED 01/10/2014 RAFAELA MCHUGH APRN 726.10 DISORDERS OF BURSAE AND TENDONS IN SHOULDER REGION UNSPECIFIED 01/10/2014 TONY BAZAN DO K 726.10 DISORDERS OF BURSAE AND TENDONS IN SHOULDER REGION UNSPECIFIED 01/10/2014 VICTOR M RAMOS APRN L 726.10 DISORDERS OF BURSAE AND TENDONS IN SHOULDER REGION UNSPECIFIED 01/10/2014 RAFAELA MCHUGH APRN 726.10 DISORDERS OF BURSAE AND TENDONS IN SHOULDER REGION UNSPECIFIED 01/10/2014 JULIA FRANCO APRN A 726.10 DISORDERS OF BURSAE AND TENDONS IN SHOULDER REGION UNSPECIFIED 01/10/2014 RAFAELA MCHUGH APRN 726.10 DISORDERS OF BURSAE AND TENDONS IN SHOULDER REGION UNSPECIFIED 01/10/2014 ANDERSON MCCORD APRN R 726.10 DISORDERS OF BURSAE AND TENDONS IN SHOULDER REGION UNSPECIFIED 01/31/2014 GERIEMILIE RUTH LUCIE A 626.4 IRREGULAR MENSTRUAL CYCLE 01/31/2014 TONY BAZAN DO 626.4 IRREGULAR MENSTRUAL CYCLE 01/31/2014 LETY PURCELL, JOSE 626.4 IRREGULAR MENSTRUAL CYCLE 01/31/2014 RAFAELA MCHUGH APRN 626.4 IRREGULAR MENSTRUAL CYCLE 01/31/2014 RAFAELA MCHUGH APRN 626.4 IRREGULAR MENSTRUAL CYCLE 01/31/2014 TONY BAZAN DO K 626.4 IRREGULAR MENSTRUAL CYCLE 01/31/2014 VICTOR M RAMOS APRN L 626.4 IRREGULAR MENSTRUAL CYCLE 01/31/2014 RAFAELA MCHUGH APRN 626.4 IRREGULAR MENSTRUAL CYCLE 01/31/2014 JEANNINE FRANCO APRNYL A 626.4 IRREGULAR MENSTRUAL CYCLE 01/31/2014 RAFAELA MCHUGH APRN 626.4 IRREGULAR MENSTRUAL CYCLE 01/31/2014 ANDERSON MCCORD APRN R 626.4 IRREGULAR MENSTRUAL CYCLE 05/21/2014 TONY BAZAN DO V04.81 FLU SHOT 05/21/2014 MADL TEST 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, VICTOR M L V04.81 FLU SHOT 05/21/2014 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RAFAELA T V04.81 FLU SHOT 05/21/2014 SALVADOR TEST 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, JULIA A V04.81 FLU SHOT 05/21/2014 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RAFAELA T V04.81 FLU SHOT 05/21/2014 MCCORD TEST 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, ANDERSON R V04.81 FLU SHOT 06/20/2014 GERMÁNL TEST 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, VICTOR M L 381.02 ACUTE MUCOID OTITIS MEDIA 06/20/2014 GERMÁNL TEST 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, VICTOR M L 461.9 SINUSITIS ACUTE 06/20/2014 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RAFAELA T 381.02 ACUTE MUCOID OTITIS MEDIA 06/20/2014 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RAFAELA T 461.9 SINUSITIS ACUTE 06/20/2014 ALYXE TEST 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, JULIA A 381.02 ACUTE MUCOID OTITIS MEDIA 06/20/2014 ALYXE TEST 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, JULIA A 461.9 SINUSITIS ACUTE 06/20/2014 JEISON AVENDAÑONRAFAELA T 381.02 ACUTE MUCOID OTITIS MEDIA 06/20/2014 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RAFAELA T 461.9 SINUSITIS ACUTE 06/20/2014 FLEX TEST 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, ANDERSON R 381.02 ACUTE MUCOID OTITIS MEDIA 06/20/2014 FLEX TEST 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MARYANDERSON R 461.9 SINUSITIS ACUTE 07/31/2014 ALYXKaya TEST 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, JUILA A 780.50 SLEEP DISTURBANCE, UNSPECIFIED 07/31/2014 RAFAELA MCHUGH APRN T 780.50 SLEEP DISTURBANCE, UNSPECIFIED 07/31/2014 ANDERSON MCCORD APRN R 780.50 SLEEP DISTURBANCE, UNSPECIFIED 08/07/2014 RAFAELA MCHUGH APRN 780.52 INSOMNIA UNSPECIFIED 08/07/2014 MARY MCCORD APRNRICIA R 780.52 INSOMNIA UNSPECIFIED 06/03/2016 RAFAELA MCHUGH Ot G43.009 MIGRAINE W/O AURA, NOT INTRACTABLE, W/ O 07/07/2016 RAFAELA MCHUGH Ot G43.009 MIGRAINE W/O AURA, NOT INTRACTABLE, W/ O 11/09/2016 RAFAELA SERRANO DO Ot G43.909 MIGRAINE, UNSP, NOT INTRACTABLE, WITHOUT 11/09/2016 RAFAELA SERRANO DO Ot I10 ESSENTIAL (PRIMARY) HYPERTENSION Procedures Code Description [place] [id number] INFLUENZA A & B (IN-HOUSE) 08/25/2012 00669 STREP A (IN-HOUSE) 08/25/2012 23699 CULTURE WOUND (AEROBIC) 09/14/2013 [id number] ROUTINE VENIPUNCTURE 11/28/2013 33932 LIPID PANEL 11/28 05690 CBC 11/28/2013 51341 CMP 11/28/2013 [id number] GFR CALC (RESULT ONLY) 11/28/2013 64164 TSH 11/28/2013 ORTHOPEDKIERAN COX 12/07/2013 97691 TB TEST INTRADERMAL 12/24/2013 80387 JOINT INJECTION- INTERMEDIATE JOINT 01/10/2014 01187 ROUTINE VENIPUNCTURE 01/31/2014 20906 TEST, URINE (IN-HOUSE) 01/31/2014 83457 CBC 01/31/2014 29898 ROUTINE VENIPUNCTURE 04/23/2014 82551 CBC 04/23/2014 10149 CMP 04/23/2014 IRGROUP IRON GROUP (Iron,TIBC, Ferritin) 04/23/2014 54206 THERAPUTIC INJ SQ/IM 07/31/2014 J1040 DEPO MEDROL 80 MG INJ 08/04/2014 19000 INFLUENZA A & B (IN-HOUSE) 09/16/2014 89228 OXIMETRY 2014 Results Encounters ACCT No. Visit Date/Time Discharge Status Pt. Type Provider Facility Loc./Unit Complaint [id number] 11/08/2016 21:21:00 2016 22:37:00 DIS Outpatient RAFAELA SERRANO DO [facility] ER MIGRAINE [id number] 12/30/2012 22:25:00 2012 23:51:00 DIS Emergency SHAN GRACE MD [facility] ER SOA [id number] 06/02/2016 10:05:00 ACT Outpatient RAFAELA MCHUGH [facility] RAD MIGRAINE W/O AURA AND W/O STATUS MIGRAINOSUS
--- OUTSIDE RECORDS SUMMARY | 2016-12-12 07:06 | XMS REPORT ---
Author Author VICTOR M RAMOS [facility] eClinicalWorks Address Unknown Phone Unavailable Care Team Providers Care Patient Safety Officer Name Role Phone VICTOR M RAMOS CP Unavailable Allergies, Adverse Reactions, Alerts Substance Reaction Event Type N.K.D.A. Info Not Available Non Drug Allergy Problems Problem Type Condition ICD-9 Code Onset Dates Condition Status Problem Unspecified constipation 564.00 Active Problem Screening for malignant neoplasm of the cervix V76.2 Active Problem Screening examination for venereal disease V74.5 Active Problem Unspecified episodic mood disorder 296.90 Active Problem Irregular menstrual cycle 626.4 Active Problem Unspecified iron deficiency anemia 280.9 Active Problem Insomnia, unspecified 780.52 Active Assessment Right anterior knee pain 719.46 Active Problem HTN (hypertension) 401.9 Active Problem [...] Instructions Start Date End Date Status Dosage Naproxen [facility] [address]-28 500 MG Orally every 12 hrs January 13, 2015 1 tablet as needed Propranolol HCl [facility] [address]-67 40 MG Orally Twice a day Mar 21, 2015 1 tablet Flonase [facility] [address]-03 50 mcg/actuation 2 spray(s) intranasally once a day Sep 09, 2014 take 1 sprays by Nasal route 1 time per day in each nostril Xyzal [facility] 75014641859 5 MG take 1 tablet by Oral route 1 time per day Xanax [facility] [address]-15 1 MG Orally Twice a day December 13, 2014 1 tablet Rcrubsaztr-AZWJ-Ktmokxkk [facility] 42287345761 50-325-40 MG TAKE ONE TO TWO TABLETS BY MOUTH EVERY 4 HOURS NEEDED (NOT TO EXCEED SIX TABLETS/24 HOURS) Ferrous Sulfate [facility] [address]-85 325 mg (65 mg iron) Apr 24, 2014 1 Tablet by Oral route 2 times per day give with food ProAir HFA [facility] [address]-99 90 mcg/actuation Aug 07, 2013 inhale 2 puffs by inhalation route every 6 hours PRN shortness of breath/cough Amitriptyline HCl [facility] 60876296149 50 MG TAKE ONE TABLET BY MOUTH AT BEDTIME Procedures Procedure Coding System Code Date Office Visit, Est Pt., Level 3 CPT-4 60839 Apr 17, 2015 X-RAY EXAM OF KNEE, 3 CPT-4 14128 Apr 17, 2015 Vital Signs Date/Time: Apr 17, 2015 Temperature 98.0 F Weight 137 lbs Height 64 in BMI 23.51 Index Blood Pressure Diastolic 70 mmHg Blood Pressure Systolic 122 mmHg Cardiac Monitoring Heart Rate 70 bpm Results Name Result Date Reference Range Unit Abnormality Flag Xray : Knee, Right 3 views (IN HOUSE) Summary Purpose eClinicalWorks Submission
--- OUTSIDE RECORDS SUMMARY | 2016-12-12 07:07 | XMS REPORT ---
Author Author RAFAELA MCHUGH [facility] e[employer] Address Unknown Phone Unavailable Care Team Providers Care Roving Winder Name Role Phone RAFAELA MCHUGH CP Unavailable Allergies No Known Allergies Problems Problem Type Condition ICD-9 Code Onset [...] End Date Status Dosage Xanax [facility] [address]-98 1 MG Orally Twice a day December 13, 2014 1 tablet Results No Known Results Summary Purpose eClinicalWorks Submission
--- OUTSIDE RECORDS SUMMARY | 2016-12-12 07:07 | XMS REPORT ---
Author Author RAFAELA MCHUGH [facility] eClinicalWorks Address Unknown Phone Unavailable Care Team Providers Care Exterminator Name Role Phone RAFAELA MCHUGH CP Unavailable [...] Start Date End Date Status Dosage Xanax [facility] [address]-27 1 MG Orally Twice a day December 13, 2014 1 tablet Results No Known Results Summary Purpose eClinicalWorks Submission
--- OUTSIDE RECORDS SUMMARY | 2016-12-12 07:07 | XMS REPORT ---
Author Author RAFAELA MCHUGH [facility] eClinicalWorks Address Unknown Phone Unavailable Care Team Providers Care Vending Machine Host/Hostess Name Role Phone RAFAELA MCHUGH CP Unavailable [...] Start Date End Date Status Dosage Xanax [facility] [address]-73 1 MG Orally Twice a day December 13, 2014 1 tablet Results No Known Results Summary Purpose eClinicalWorks Submission
== END 2016-11-08 22:37 | disposition home or self-care (01) ==
LOC: EDUNIT# 21:20 → ER 21:21
DX: G43.909 Migraine, unspecified, not intractable, without status migrainosus (principal); I10 Essential (primary) hypertension
CPT/HCPCS: 96372; 99282

== ENCOUNTER 2017-01-23 01:50 | Emergency (ER) | payer OTHER ==
[~2017-01-23] VITALS: Ht 160 cm; Wt 61.2 kg
[~2017-01-23 01:50] MED LIST changes: +ALPR1TAB7; +BACL20TA; +GABA-486; +LEVO5TAB12; +PROP60TA17; +PSEU60TA20; +[UNRECOGNIZED DRUG - OTHER]
[2017-01-23] MEDS ORDERED: ORPHENADRINE 60 MG/2 ML (NORFLEX) AMP IM ONE (02:15)
[2017-01-23] MEDS ORDERED: KETOROLAC 60 MG/2 ML VIAL IM ONE (02:15)
[2017-01-23] MEDS ORDERED: ONDANSETRON 4 MG (ZOFRAN) ORAL DISSOLVE TAB PO ONE (02:15)
[2017-01-23] MEDS ORDERED: diphenhydrAMINE 50 MG/ML INJ (BENADRYL) IM ONE (02:15)
--- NOTE | 2017-01-23 02:44 | ED Headache ---
General Chief Complaint: Head/Cervical Problems Stated Complaint: MIGRAINE Nursing Triage Note: started yesterday, states has some anxiety with this also Nursing Sepsis Screen: No Definite Risk Source: patient History of Present Illness Time seen by provider: :58 Initial Comments PT ARRIVES VIA POV FROM HOME-- DROVE HER C/O MIGRAINE SINCE YESTERDAY MORNING ON WAKING AT 0500 C/O PAIN BEHIND EYES, IN FRONTAL AREA AND OCCIPITAL AREA C/O NAUSEA, NO VOMITING C/O LIGHT SENSITIVITY, BUT NO VISION CHANGES NO PARESTHESIAS OR MOTOR DEFICITS NO FEVER, URI/SINUS SYMPTOMS OR RECENT ILLNESS PT HAS HEADACHES FAIRLY FREQUENTLY, AND THIS IS EXACTLY THE SAME HER USUAL MIGRAINES PT NORMALLY 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 WORKS, BUT HAS HAD TO COME TO ER ON A FEW OCCASIONS WHEN HOME MEDICATIONS NOT WORK PT LATER STATES SHE DOES HAVE ZOFRAN ODT AT HOME, BUT HAS NOT TAKEN ANY PT HAS NOT TAKEN HER EVENING DOSE OF BP MEDICATION PT STATES HEADACHE IS NOW CAUSING ANXIETY PCP: [facility]YORDAN MCHUGH Allergies and Home Medications Allergies Coded Allergies: hydrocodone (Unverified Allergy, Intermediate, vomitting, 01/23/17) states also cant breath/dizziness Home Medications Alprazolam 0.5 Mg Tablet, 1 TAB PO BID, (Reported) Alprazolam 1 Mg Tablet, #60 (Reported) Baclofen 20 Mg Tablet, #90 (Reported) Fluticasone Propionate 16 Gm Naspr, 16 GM NS DAILY, (Reported) Gabapentin 100 Mg Capsule, #90 (Reported) Levocetirizine Dihydrochloride 5 Mg Tablet, #30 (Reported) Propranolol HCl 60 Mg Tablet, #60 (Reported) Pseudoephedrine HCl 60 Mg Tablet, #30 (Reported) [Butalbital-APAP-] , #40 (Reported) Constitutional: no symptoms reported Eyes: See HPI, Photophobia Ears, Nose, Mouth, Throat: no symptoms reported Respiratory: no symptoms reported Cardiovascular: no symptoms reported Gastrointestinal: nausea, No vomiting Genitourinary: no symptoms reported Musculoskeletal: no symptoms reported Skin: no symptoms reported Psychiatric/Neurological: No Symptoms Reported, Anxiety, Headache, Denies Numbness, Denies Paresthesia, Denies Seizure, Denies Tingling, Denies Tremors, Denies Weakness Past Ttohghu-Hepsya-Jfpoqt Hx Patient Social History Alcohol Use: Denies Use Recreational Drug Use: No Smoking Status: Never a Smoker Recent Foreign Travel: No Contact w/Someone Who Travel: No Recent Infectious Disease Expo: No Recent Hopitalizations: No Seasonal Allergies Seasonal Allergies: Yes (HAYFEVER) Surgeries HX Surgeries: Yes Surgeries: Gallbladder Respiratory Hx Respiratory Disorders: Yes Respiratory Disorders: Asthma Cardiovascular Hx Cardiac Disorders: Yes Cardiac Disorders: Hypertension Neurological Hx Neurological Disorders: Yes Neurological Disorders: Headaches /Migraines Reproductive System Hx Reproductive Disorders: No Sexually Transmitted Disease: No Genitourinary Hx Genitourinary Disorders: No Gastrointestinal Hx Gastrointestinal Disorders: No Musculoskeletal Hx Musculoskeletal Disorders: No Endocrine Hx Endocrine Disorders: No HEENT HX ENT Disorders: No Cancer Hx Cancer: No Psychosocial Hx Psychiatric Problems: No Integumentary HX Skin/Integumentary Disorder: No Blood Transfusions Hx Blood Disorders: No Family Medical History Significant Family History: No Pertinent Family Hx Physical Exam Vital Signs Vital Sign - Last 12Hours 01/23/17 02:00 Temp 97.8 Pulse 97 Resp 20 B/P (MAP) 148/97 Pulse Ox 100 O2 Delivery Room Air Capillary Refill : Less Than 3 Seconds General Appearance: WD/WN, no apparent distress HEENT: PERRL/EOMI, normal ENT inspection, TMs normal, pharynx normal, photophobia Neck: full range of motion, supple, tender lateral (WITH MILD MUSCLE SPASMS) Cardiovascular: normal peripheral pulses, regular rate, rhythm, no edema, no JVD, no murmur Respiratory: normal breath sounds, no respiratory distress, no accessory muscle use Gastrointestinal: normal bowel sounds, non tender, soft Back: normal inspection Extremities: normal inspection Psychiatric: alert, oriented x 3 Crainal Nerves: normal hearing, normal speech, PERRL Coordination/Gait: normal gait Motor/Sensory: no motor deficit, no sensory deficit, no pronator drift Skin: normal color, warm/dry Progress/Results/Core Measures Results/Orders My Orders Orders - SHILOH PEACOCK DO Ondansetron Oral Dissolve Tab (Zofran (01/23/17 02:15) Orphenadrine Injection (Norflex Injectio (01/23/17 02:15) Ketorolac Injection (Toradol Injection) (01/23/17 02:15) Diphenhydramine Injection (Benadryl Inje (01/23/17 02:15) Medications Given in ED Current Medications Medications Dose Ordered Sig/Dewey Route Start Time Stop Time Status Last Admin Dose Admin Diphenhydramine HCl 50 mg ONCE ONCE IM 01/23/17 02:15 01/23/17 02:17 DC 01/23/17 02:19 50 MG Ketorolac Tromethamine 60 mg ONCE ONCE IM 01/23/17 02:15 01/23/17 02:17 DC 01/23/17 02:17 60 MG Ondansetron HCl 4 mg ONCE ONCE PO 01/23/17 02:15 01/23/17 02:17 DC 01/23/17 02:16 4 MG Orphenadrine Citrate 60 mg ONCE ONCE IM 01/23/17 02:15 01/23/17 02:17 DC 01/23/17 02:16 60 MG Vital Signs/I&O Vital Sign - Last 12Hours 01/23/17 01/23/17 02:00 02:56 Temp 97.8 Pulse 97 97 Resp 20 20 B/P (MAP) 148/97 Pulse Ox 100 100 O2 Delivery Room Air Blood Pressure Mean: 114 Progress Note : Progress Note HEADACHE EASING AND NAUSEA GONE AT TIME OF DISMISSAL Departure Impression Impression: Primary Impression: Migraine Disposition: 01 HOME, SELF-CARE Condition: Improved Departure-Patient Inst. Referrals: [facility] (PCP) Primary Care Physician RAFAELA MCHUGH (Family) Primary Care Physician Patient Instructions: Migraine Headache (DC) Add. Discharge Instructions: HOME, REST LOTS OF CLEAR LIQUIDS YOU MAY TAKE YOUR HOME ZOFRAN EVERY 4 HOURS NEEDED, AND YOU MAY TAKE UP TO 2 FIORCET EVERY 4 HOURS NEEDED FOR HEADACHE RETURN TO ER IF SYMPTOMS WORSEN All discharge instructions reviewed with patient and/or family. Voiced understanding. SHILOH PEACOCK DO Jan 23, 2017 02:44
[2017-01-23 02:56] VITALS: BP 148/97
== END 2017-01-23 02:57 | disposition home or self-care (01) ==
LOC: EDUNIT# 01:50 → ER 01:54
DX: G43.909 Migraine, unspecified, not intractable, without status migrainosus (principal); J45.909 Unspecified asthma, uncomplicated; I10 Essential (primary) hypertension
CPT/HCPCS: 99282

== ENCOUNTER 2017-01-24 07:52 | Emergency (ER) | payer OTHER ==
[~2017-01-24] VITALS: Ht 160 cm; Wt 61.2 kg
[2017-01-24] MEDS ORDERED: NS IV 1000 ML 1,000 ML IV ONE (10:00)
[2017-01-24] MEDS ORDERED: PROCHLORPERAZINE 10 MG/2ML INJ (COMPAZINE) IV ONE (10:00)
[2017-01-24] MEDS ORDERED: diphenhydrAMINE 50 MG/ML INJ (BENADRYL) IVP ONE (10:00)
[2017-01-24] MEDS ORDERED: DEXAMETHASONE PF 10 MG/ML (DECADRON) VIAL IV STA (10:00)
[2017-01-24] MEDS ORDERED: NS IV 1000 ML 1,000 ML IV STA (10:00)
[2017-01-24] MEDS ORDERED: KETOROLAC 30 MG/ML VIAL IVP STA (10:00)
--- NOTE | 2017-01-24 10:15 | ED Headache ---
General Chief Complaint: Head/Cervical Problems Stated Complaint: MIGRAINE Nursing Triage Note: PT CO OF STATES GENNA WAS SEEN IN ED YESTERDAY FOR MIGRAINE Nursing Sepsis Screen: No Definite Risk Source: patient Exam Limitations: no limitations History of Present Illness Time seen by provider: 09:55 Initial Comments Here with report of headache that has been going on for the past 36 hours. Seen yesterday in the ER for same. Reports frontal headache that has persisted since. Her prescription medication and ngio-ljz-quyupvt medicines are not helping. Reports the headache is moderate and frontal. Does have nausea and sensitivity to light. Denies fever or chills. Headache is typical for her migraine syndrome that she has had since she was a child. Timing/Duration: 24 hours Severity/Quality: moderate, pressure Location: frontal Prior Headaches/Recent Trauma: occasional headaches Modifying Factors: worse with exposure to light Associated Symptoms: No confusion, No fever/chills, No loss of consciousness, nausea/vomiting, No nasal congestion, No seizures, No sinus infection, No stiff neck, No vision changes, No weakness Allergies and Home Medications Allergies Coded Allergies: hydrocodone (Unverified Allergy, Intermediate, vomitting, 01/23/17) states also cant breath/dizziness Home Medications Alprazolam 0.5 Mg Tablet, 1 TAB PO BID, (Reported) Alprazolam 1 Mg Tablet, #60 (Reported) Baclofen 20 Mg Tablet, #90 (Reported) Fluticasone Propionate 16 Gm Naspr, 16 GM NS DAILY, (Reported) Gabapentin 100 Mg Capsule, #90 (Reported) Levocetirizine Dihydrochloride 5 Mg Tablet, #30 (Reported) Propranolol HCl 60 Mg Tablet, #60 (Reported) Pseudoephedrine HCl 60 Mg Tablet, #30 (Reported) [Butalbital-APAP-] , #40 (Reported) Constitutional: see HPI, No chills, No fever Eyes: See HPI Ears, Nose, Mouth, Throat: no symptoms reported Respiratory: no symptoms reported, No short of breath, No wheezing Cardiovascular: no symptoms reported, No chest pain, No edema Gastrointestinal: No abdominal pain, No nausea, No vomiting Genitourinary: no symptoms reported Musculoskeletal: no symptoms reported Psychiatric/Neurological: See HPI, Headache, Denies Paresthesia, Denies Weakness All Other Systems Reviewed Negative Unless Noted: Yes Past Wwvpyrq-Ezmfho-Ximjnt Hx Patient Social History Alcohol Use: Denies Use Recreational Drug Use: No Smoking Status: Never a Smoker Recent Foreign Travel: No Contact w/Someone Who Travel: No Recent Infectious Disease Expo: No Recent Hopitalizations: No Seasonal Allergies Seasonal Allergies: Yes (HAYFEVER) Surgeries HX Surgeries: Yes Surgeries: Gallbladder Respiratory Hx Respiratory Disorders: Yes Respiratory Disorders: Asthma Cardiovascular Hx Cardiac Disorders: Yes Cardiac Disorders: Hypertension Neurological Hx Neurological Disorders: Yes Neurological Disorders: Headaches /Migraines Reproductive System Hx Reproductive Disorders: No Sexually Transmitted Disease: No Genitourinary Hx Genitourinary Disorders: No Gastrointestinal Hx Gastrointestinal Disorders: No Musculoskeletal Hx Musculoskeletal Disorders: No Endocrine Hx Endocrine Disorders: No HEENT HX ENT Disorders: No Cancer Hx Cancer: No Psychosocial Hx Psychiatric Problems: No Integumentary HX Skin/Integumentary Disorder: No Blood Transfusions Hx Blood Disorders: No Reviewed Nursing Assessment Reviewed/Agree w Nursing PMH: Yes Family Medical History Significant Family History: No Pertinent Family Hx Physical Exam Vital Signs Vital Sign - Last 12Hours 01/24/17 08:15 Temp 98.0 Pulse 80 Resp 18 B/P (MAP) 153/100 Pulse Ox 99 Capillary Refill : Less Than 3 Seconds General Appearance: WD/WN, no apparent distress HEENT: PERRL/EOMI, pharynx normal Neck: non-tender, full range of motion, supple, normal inspection Cardiovascular: regular rate, rhythm, no murmur Respiratory: lungs clear, normal breath sounds Gastrointestinal: non tender, soft Back: normal inspection, no CVA tenderness, no vertebral tenderness Extremities: non-tender, normal inspection Psychiatric: alert, oriented x 3 Crainal Nerves: normal hearing, normal speech, PERRL Coordination/Gait: normal gait Motor/Sensory: no motor deficit, no sensory deficit Skin: normal color, warm/dry Progress/Results/Core Measures Results/Orders My Orders Orders - SHAN GRACE MD Iv 1000 Ml (Sodium Chloride 0.9%) (01/24/17 10:00) Saline Lock/Iv-Start (01/24/17 10:00) Saline Lock/Iv-Start (01/24/17 10:00) Ns Iv 1000 Ml (Sodium Chloride 0.9%) (01/24/17 10:00) Ketorolac Injection (Toradol Injection) (01/24/17 10:00) Prochlorperazine Injection (Compazine In (01/24/17 10:00) Diphenhydramine Injection (Benadryl Inje (01/24/17 10:00) Dexamethasone Pf Injection (Decadron Pf (01/24/17 10:00) Medications Given in ED Current Medications Medications Dose Ordered Sig/Dewey Route Start Time Stop Time Status Last Admin Dose Admin Diphenhydramine HCl 25 mg ONCE ONCE IVP 01/24/17 10:00 01/24/17 10:03 DC 01/24/17 10:31 25 MG Prochlorperazine Edisylate 5 mg ONCE ONCE IV 01/24/17 10:00 01/24/17 10:03 DC 01/24/17 10:32 5 MG Vital Signs/I&O Vital Sign - Last 12Hours 01/24/17 08:15 Temp 98.0 Pulse 80 Resp 18 B/P (MAP) 153/100 Pulse Ox 99 Blood Pressure Mean: 117 Progress Note : Progress Note Seen and evaluated. Compazine 5 mg IV, Toradol 30 mg IV, Benadryl 25 mg IV and Decadron 10 mg IV ordered. Normal saline 1 L bolus. Monitor patient. 1143: Overall much improved. Discharged home with return precautions. Patient verbalize understanding instructions and agreement with plan. Departure Impression Impression: Primary Impression: Migraine Qualified Codes: G43.909 - Migraine, unspecified, not intractable, without status migrainosus Disposition: 01 HOME, SELF-CARE Condition: Improved Departure-Patient Inst. Decision time for Depature: 11:47 Referrals: [facility] (PCP) Primary Care Physician RAFAELA MCHUGH (Family) Primary Care Physician Patient Instructions: Migraine Headache (DC) Add. Discharge Instructions: All discharge instructions reviewed with patient and/or family. Voiced understanding. Continue home medications as directed. follow-up with your doctor this week for recheck. Drink plenty of fluids. Return for worse pain, fever, vomiting, weakness, breathing problems or other concerns as needed. Work/School Note: Work Release Form Date Seen in the Emergency Department: Jan 24, 2017 Return to Work: Jan 25, 2017 Restrictions: No Restrictions SHAN GRACE MD Jan 24, 2017 10:15
[2017-01-24 11:59] VITALS: BP 135/88
== END 2017-01-24 11:58 | disposition home or self-care (01) ==
LOC: EDUNIT# 07:52 → ER 07:54
DX: G43.909 Migraine, unspecified, not intractable, without status migrainosus (principal); I10 Essential (primary) hypertension; J45.909 Unspecified asthma, uncomplicated

== ENCOUNTER 2020-03-17 18:56 | Emergency (ER) | payer BC, OTHER ==
[~2020-03-17] VITALS: Ht 160 cm; Wt 58.9 kg
[~2020-03-17 18:56] MED LIST changes: -PSEU60TA20; +PSEU60TA21
--- OUTSIDE RECORDS SUMMARY | 2020-03-17 19:08 | XMS REPORT ---
Author Author Ann MCHUGH Organization [facility] [place] Address [address] [place] [address] Care Team Providers Care Dba Name Role Phone RAFAELA MCHUGH Unavailable PROBLEMS Type Condition ICD9-CM Code IMS82-NB Code Onset Dates Condition S tatus SNOMED Code Problem Perimenopausal N95.1 Active 05376 [id number] Problem Seasonal allergic rhinitis, unspecified allergic rhinitis trigger J30.2 Active 139633644 Problem Chronic migraine G43.709 Active 377 95758 Problem Anxiety F41.9 Active 31717004 Problem Vitamin D deficiency E55.9 Active 99142503 Problem Essential hypertension I10 Active 64334510 Problem Iron deficiency anemia, unspecified iron deficiency an emia type D50.9 Active 79564380 Problem Carpal tunnel syndrome, bilateral G56.03 Active [id number] Problem Daytime hypersomnia G47.19 Active [id number] Problem Nocturnal dyspnea R06.00 Active 24 9517470 ALLERGIES No Information ENCOUNTERS Encounter Location Date Diagnosis [facility] [address] [facility] [id number] [address] [place] [address] December, Strain of lumbar region, ini tial encounter S39.012A [facility] [place] [address] [place] [id number] [address] [place] [address] 11 Apr, 2018 Chronic migraine G43.709 ; E ssential hypertension I10 ; Iron deficiency anemia, unspecified iron deficiency anemia type D50.9 and Long-term use of high-risk medication Z79.899 [facility] [place] [address] [facility] [id number] [address] [place] [address] Feb, Seasonal allergic rhinitis, unspecified allergic rhinitis trigger J30.2 and Chronic migraine G43.709 [facility] [place] [address] [facility] [id number] [address] [place] [address] Feb, Anxiety F41.9 [facility] [place] [address] [place] [id number] [address] [place] [address] Feb, Exposure to pertussis Z20.81 8 [facility] [place] [address] [place] [id number] [address] [place] [address] Jan, [place] [address] [place] [address] Jan, Chronic migraine G43.709 and Anxiety F41.9 [place] [address] [place] [id number] [address] [place] [address] December, Anxiety F41.9 [place] [address] [address] Nov, Chronic migraine G43.709 ; S easonal allergic rhinitis, unspecified allergic rhinitis trigger J30.2 ; Vitamin D deficiency E55.9 ; Nocturnal dyspnea R06.00 ; Daytime hypersomnia G47.19 and Anxiety F41.9 [place] [address] [place] [address] Nov, Chronic migraine G43.709 [place] [address] [place] [id number] [address] [place] [address] Oct, [place] [address] [address] Sep, Carpal tunnel syndrome, bila teral G56.03 [facility] [place] [address] [place] [id number] [address] [place] [address] Sep, Chronic migraine G43.709 [place] [address] [place] [id number] [address] [place] [address] Aug, [place] [address] [place] [id number] [address] [place] [address] Jul, Seasonal allergic rhinitis, unspecified allergic rhinitis trigger J30.2 [place] [address] [place] [id number] [address] [place] [address] Jul, Seasonal allergic rhinitis, unspecified allergic rhinitis trigger J30.2 [facility] [place] [address] [facility] [id number] [address] [place] [address] Jul, Chronic migraine G43.709 [facility] [place] [address] [facility] [id number] [address] [place] [address] Jun, [facility] [address] [id number] [address] [place] [address] [id number] May, Dental caries K02.9 [facility] [place] [address] [facility] [id number] [address] [place] [address] May, Chronic migraine G43.709 [facility] [place] [address] [facility] [id number] [address] [place] [address] Apr, Chronic migraine G43.709 ; I yvette deficiency anemia, unspecified iron deficiency anemia type D50.9 ; Perimenopausal N95.1 and Vitamin D deficiency E55.9 [facility] [place] [address] [facility] [id number] [address] [place] [address] Mar, [facility] [place] [address] [facility] [id number] [address] [place] [address] Mar, Seasonal allergic rhinitis, unspecified allergic rhinitis trigger J30.2 [facility] [place] [address] [facility] [id number] [address] [place] [address] Mar, Chronic migraine G43.709 [facility] [place] [address] [facility] [id number] [address] [place] [address] Mar, [facility] [place] [address] [facility] [id number] [address] [place] [address] Mar, Chronic migraine G43.709 ; I rregular menses N92.6 ; Iron deficiency anemia, unspecified iron deficiency anemia type D50.9 and General medical exam Z00.00 [facility] [place] [address] [facility] [id number] [address] [place] [address] Mar, Chronic migraine G43.709 ; I yvette deficiency anemia, unspecified iron deficiency anemia type D50.9 ; Irregular menses N92.6 and General medical exam Z00.00 [facility] [address] [id number] [address] [place] [id number] Feb, Dental examination Z01.20 [facility] [place] [address] [id number] [address] [place] [address] Feb, Chronic tension-type headach e, 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 and Seasonal allergic rhinitis, unspecified allergic rhinitis trigger J30.2 [facility] [place] [address] [id number] [address] [place] [address] Feb, [facility] [place] [address] [id number] [address] [place] [address] Jan, Seasonal allergic rhinitis, unspecified allergic rhinitis trigger J30.2 [facility] [place] [address] [facility] [id number] [address] [place] [address] December, Chronic tension-type headach e, 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 [facility] [address] [id number] [address] [place] [id number] December, Dental examination Z01.20 [facility] [place] [address] [facility] [id number] [address] [place] [address] December, [facility] [place] [address] [id number] [address] [place] [address] Oct, [facility] [place] [address] [id number] [address] [place] [address] Oct, [facility] [address] [id number] [address] [place] [address] Oct, Sore throat J02.9 and Season al allergic rhinitis, unspecified allergic rhinitis trigger J30.2 [facility] [place] [address] [id number] [address] [place] [address] Oct, [facility] [place] [address] [facility] [id number] [address] [place] [address] Sep, [facility] [place] [address] [facility] [id number] [address] [place] [address] Aug, Menstrual periods irregular N92.6 ; Chronic tension-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, 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 ; Acute upper respiratory infection, unspecified J06.9 and Other viral agents as the cause of diseases classified elsewhere B97.89 [facility] [place] [address] [facility] [id number] [address] [place] [address] Jul, [facility] [place] [address] [facility] [id number] [address] [place] [address] Jul, [facility] [place] [address] [place] [id number] [address] [place] [address] Jul, Migraine without aura and wi thout status migrainosus, not intractable G43.009 [facility] [place] [address] [place] [id number] [address] [place] [address] Jun, [facility] [place] [address] [place] [id number] [address] [place] [address] May, Migraine without aura and wi thout status migrainosus, not intractable G43.009 [facility] [place] [address] [place] [id number] [address] [place] [address] May, [facility] [place] [address] [place] [id number] [address] [place] [address] May, [facility] [address] [place] [id number] [address] [place] [address] [id number] Mar, Dental examination Z01.20 [facility] [place] [address] [facility] [id number] [address] [place] [address] Mar, [facility] [place] [address] [place] [id number] [address] [place] [address] Jan, Onychomycosis B35.1 [facility] [place] [address] [place] [id number] [address] [place] [address] Jan, [facility] [place] [address] [place] [id number] [address] [place] [address] 04 Dec, 2015 Dental caries K02.9 [facility] [place] [address] [id number] [address] [place] [address] Nov, Dental examination Z01.20 [facility] [place] [address] [id number] [address] [place] [address] 09 Oct, 2015 Dental examination Z01.20 [facility] [place] [address] [id number] [address] [place] [address] 04 Oct, 2015 [facility] [place] [address] [facility] [id number] [address] [place] [address] 02 Oct, 2015 Migraine G43.909 [facility] [place] [address] [facility] [id number] [address] [place] [address] 26 Sep, 2015 Onychomycosis B35.1 [facility] [place] [address] [place] [id number] [address] [place] [address] Sep, [facility] [place] [address] [id number] [address] [place] [address] Aug, [facility] [place] [address] [place] [id number] [address] [place] [address] Jul, [facility] [place] [address] [place] [id number] [address] [place] [address] 16 Apr, 2015 [facility] [place] [address] [place] [id number] [address] [place] [address] 10 Apr, 2015 Right anterior knee pain 719 .46 [facility] [place] [address] [facility] [id number] [address] [place] [address] 14 Mar, 2015 Tendonitis 726.90 ; HTN (hyp ertension) 401.9 ; Tremors of nervous system 781.0 and Anxiety 300.00 [facility] [place] [address] [place] [id number] [address] [place] [phone] 12 Mar, 2015 Thrush 112.0 [facility] [place] [address] [place] [id number] [address] [place] [address] Feb, [facility] [place] [address] [id number] [address] [place] [address] Feb, Tremors of nervous system 78 1.0 and Carpal tunnel syndrome 354.0 [facility] [place] [address] [facility] [id number] [address] [place] [address] Jan, Anxiety 300.00 ; Tremors of nervous system 781.0 and Tendonitis 726.90 [facility] [place] [address] [facility] [id number] [address] [place] [address] Jan, Anxiety 300.00 ; Tremors of nervous system 781.0 and Tendonitis 726.90 [facility] [place] [address] [facility] [id number] [address] [place] [address] Jan, Sinusitis 473.9 [facility] [place] [address] [id number] [address] [place] [phone] December, [facility] [place] [address] [id number] [address] [place] [phone] December, [facility] [place] [address] [facility] [id number] [address] [place] [address] December, [facility] [place] [address] [facility] [id number] [address] [place] [address] December, [facility] [place] [address] [facility] [id number] [address] [place] [phone] December, [facility] [place] [address] [facility] [id number] [address] [place] [address] Nov, [facility] [place] [address] [id number] [address] [place] [phone] Nov, [facility] [place] [address] [facility] [id number] [address] [place] [address] Sep, [facility] [place] [address] [facility] [id number] [address] [place] [address] Sep, [facility] [address] [id number] [address] [place] [address], [place] [address] Sep, [facility] [address] [id number] [address] [place] [address], [place] [address] Sep, [facility] [address] [id number] [address] [place] [address], [place] [address] Jul, [facility] [address] [id number] [address] [place] [address], [place] [address] Jul, [facility] [address] [id number] [address] [place] [address], [place] [address] Jul, [facility] [address] [id number] [address] [place] [address], [place] [phone] Jul, [facility] [address] [id number] [address] [place] [address], [place] [phone] Jul, [facility] [address] [id number] [address] [place] [address], [place] [address] Jul, [facility] [address] [id number] [address] [place] [address], [place] [id number] Jul, [facility] [address] [id number] [address] [place] [address], [place] [address] Jul, [facility] [address] [id number] [address] [place] [address], [place] [address] Jul, [facility] [address] [id number] [address] [place] [address], [place] [address] Jul, [facility] [address] [id number] [address] [place] [address], [place] [address] Jun, [facility] [address] [id number] [address] [place] [address], [place] [address] Jun, [facility] [address] [id number] [address] [place] [address], [place] [phone] Jun, [facility] [address] [id number] [address] [place] [address], [place] [address] Jun, [facility] [address] [id number] [address] [place] [address], [place] [address] May, [facility] [address] [id number] [address] [place] [address], [place] [address] 28 May, 2014 [facility] [address] [id number] [address] [place] [address], [place] [address] 14 May, 2014 [facility] [address] [id number] [address] [place] [address], [place] [address] 14 May, 2014 [facility] [address] [id number] [address] [place] [address], [place] [id number] 17 Apr, 2014 [facility] [address] [id number] [address] [place] [address], [place] [address] 17 Apr, 2014 [facility] [address] [id number] [address] [place] [address], [place] [address] 17 Apr, 2014 [facility] [address] [id number] [address] [place] [address], [place] [id number] 17 Apr, 2014 [facility] [address] [id number] [address] [place] [address], [place] [address] 16 Apr, 2014 [facility] [address] [id number] [address] [place] [address], [place] [address] 16 Apr, 2014 [facility] [address] [id number] [address] [place] [address], [place] [address] 03 Apr, 2014 [facility] [address] [id number] [address] [place] [address], [place] [address] Apr, [facility] [address] [id number] [address] [place] [address], [place] [address] Mar, [facility] [address] [id number] [address] [place] [address], [place] [address] Mar, [facility] [address] [id number] [address] [place] [address], [place] [phone] Feb, [facility] [address] [id number] [facility] [place] [address] Feb, [facility] [address] [id number] [facility] [address] Feb, [facility] [address] [id number] [address] [place] [address], [place] [address] Feb, [facility] [address] [id number] [address] [place] [address], [place] [address] Jan, [facility] [address] [id number] [address] [place] [address], [place] [address] Jan, [facility] [address] [id number] [address] [place] [address], [place] [address] Jan, [facility] [address] [id number] [address] [place] [address], [place] [address] Jan, [facility] [address] [id number] [address] [place] [address], [place] [address] Jan, [facility] [address] [id number] [address] [place] [address], [place] [address] Jan, [facility] [address] [id number] [address] [place] [address], [place] [address] December, [facility] [address] [id number] [address] [place] [address], [place] [address] December, [facility] [address] [id number] [address] [place] [address], [place] [phone] December, [facility] [address] [id number] [address] [place] [address], [place] [address] December, [facility] [address] [id number] [address] [place] [address], [place] [id number] December, [facility] [address] [id number] [address] [place] [address], [place] [address] Nov, [facility] [address] [id number] [address] [place] [address], [place] [address] Nov, [facility] [address] [id number] [address] [place] [address], [place] [address] Nov, [facility] [address] [id number] [address] [place] [address], [place] [id number] Nov, [facility] [address] [id number] [address] [place] [address], [place] [id number] Nov, [facility] [address] [id number] [address] [place] [address], [place] [id number] Nov, [facility] [address] [id number] [address] [place] [address], [place] [id number] Oct, [facility] [address] [id number] [address] [place] [address], [place] [id number] Oct, [facility] [address] [id number] [address] [place] [address], [place] [id number] Oct, [facility] [address] [id number] [address] [place] [address], [place] [id number] Oct, [facility] [address] [id number] [address] [place] [address], [place] [id number] Sep, [facility] [address] [id number] [address] [place] [address], [place] [id number] Sep, [facility] [address] [id number] [address] [place] [address], [place] [id number] Sep, [facility] [address] [id number] [address] [place] [address], [place] [id number] Sep, [facility] [address] [id number] [address] [place] [address], [place] [id number] Sep, [facility] [address] [id number] [address] [place] [address], [place] [id number] Sep, [facility] [address] [id number] [address] [place] [address], [place] [id number] Sep, [facility] [address] [id number] [address] [place] [address], [place] [id number] Sep, [facility] [address] [id number] [address] [place] [address], [place] [id number] Sep, [facility] [address] [id number] [address] [place] [address], [place] [id number] Sep, [facility] [address] [id number] [address] [place] [address], [place] [id number] Sep, [facility] [address] [id number] [address] [place] [address], [place] [id number] Sep, [facility] [address] [id number] [address] [place] [address], [place] [id number] Sep, [facility] [address] [id number] [address] [place] [address], [place] [id number] Aug, [facility] [address] [id number] [address] [place] [address], [place] [id number] Aug, [facility] [address] [id number] [address] [place] [address], [place] [id number] Jul, [facility] [address] [id number] [address] [place] [address], [place] [id number] Jul, [facility] [address] [id number] [address] [place] [address], [place] [id number] Jun, [facility] [address] [id number] [address] [place] [address], [place] [address] Jun, [facility] [address] [id number] [address] [place] [address], [place] [address] May, [facility] [address] [id number] [address] [place] [address], [place] [address] Apr, [facility] [address] [id number] [address] [place] [address], [place] [address] Mar, [facility] [address] [id number] [address] [place] [address], [place] [address] Jan, [facility] [address] [id number] [address] [place] [address], [place] [address] December, [facility] [address] [id number] [address] [place] [address], [place] [address] December, [facility] [address] [id number] [address] [place] [address], [place] [address] Oct, [facility] [address] [id number] [address] [place] [address], [place] [address] Oct, [facility] [address] [id number] [address] [place] [address], [place] [address] Sep, [facility] [address] [id number] [address] [place] [address], [place] [address] Aug, [facility] [address] [id number] [address] [place] [address], [place] [address] Aug, [facility] [address] [id number] [address] [place] [address], [place] [address] Jul, [facility] [address] [id number] [address] [place] [address], [place] [address] Jul, [facility] [address] [id number] [address] [place] [address], [place] [address] Mar, [facility] [address] [id number] [address] [place] [address], [place] [address] Mar, [facility] [address] [id number] [address] [place] [address], [place] [address] Feb, [facility] [address] [id number] [address] [place] [address], [place] [address] Feb, [facility] [address] [id number] [address] [place] [address], [place] [address] Feb, [facility] [address] [id number] [address] [place] [address], [place] [address] Jan, [facility] [address] [id number] [address] [place] [address], [place] [address] 26 Nov, 2011 [facility] [address] [id number] [address] [place] [address], [place] [id number] 17 Sep, 2011 [facility] [address] [id number] [address] [place] [address], [place] [address] 15 Sep, 2011 [facility] [address] [id number] [address] [place] [address], [place] [address] 10 Sep, 2011 [facility] [address] [id number] [address] [place] [address], [place] [address] Aug, [facility] [address] [id number] [address] [place] [address], [place] [address] Aug, [facility] [address] [id number] [address] [place] [address], [place] [address] Aug, [facility] [address] [id number] [address] [place] [address], [place] [address] Jun, [facility] [address] [id number] [address] [place] [address], [place] [address] Jun, [facility] [address] [id number] [address] [place] [address], [place] [address] Jun, [facility] [address] [id number] [address] [place] [address], [place] [address] Jun, [facility] [address] [id number] [address] [place] [address], [place] [address] 25 May, 2011 [facility] [address] [id number] [address] [place] [address], [place] [address] 18 May, 2011 [facility] [address] [id number] [address] [place] [address], [place] [address] 18 May, 2011 [facility] [address] [id number] [address] [place] [address], [place] [address] 14 May, 2011 [facility] [address] [id number] [address] [place] [address], [place] [address] Jun, [facility] [place] [address] [facility] [id number] [address] [place] [id number] December, [facility] [place] [address] [facility] [id number] [address] [place] [address] May, IMMUNIZATIONS No Known Immunizations SOCIAL HISTORY Never Assessed REASON FOR VISIT PLAN OF CARE VITAL SIGNS MEDICATIONS No Known Medications RESULTS No Results PROCEDURES No Known procedures INSTRUCTIONS MEDICATIONS ADMINISTERED No Known Medications MEDICAL (GENERAL) HISTORY Type Description Date Medical History asthma-childhood agravated hot or cold Medical History seasonal allergies- nasal congestion, ot algia, eyes itch Medical History migraine headaches Medical History anemia Medical History high blood pressure Medical History Unspecified iron deficiency anemia Medical History Perimenopausal Medical History Vitamin D deficiency Surgical History cholecystectomy 2003 Hospitalization History choleystectomy
--- OUTSIDE RECORDS SUMMARY | 2020-03-17 19:08 | XMS REPORT ---
Author Author Ann MCHUGH Organization [facility] [place] Address [address] [place] [address] Care Team Providers Care Shape Hand Name Role Phone RAFAELA MCHUGH Unavailable PROBLEMS Type Condition ICD9-CM Code EPM37-HB Code Onset Dates Condition S tatus SNOMED Code Problem Perimenopausal N95.1 Active 10209 0243499180 Problem Seasonal allergic rhinitis, unspecified allergic rhinitis trigger J30.2 Active 642687698 Problem Chronic migraine G43.709 Active 377 58853 Problem Anxiety F41.9 Active 01353735 Problem Vitamin D deficiency E55.9 Active 08221726 Problem Essential hypertension I10 Active 46487046 Problem Iron deficiency anemia, unspecified iron deficiency an emia type D50.9 Active 57661426 Problem Carpal tunnel syndrome, bilateral G56.03 Active 29295641147584924 Problem Daytime hypersomnia G47.19 Active 44324065512827 Problem Nocturnal dyspnea R06.00 Active 24 3346065 ALLERGIES No Information ENCOUNTERS Encounter Location Date Diagnosis [facility] [address] [facility] [id number] [address] [place] [id number] 13 Dec, 2019 Strain of lumbar region, ini tial encounter S39.012A [facility] [place] [address] [place] [id number] [address] [place] [address] Apr, Chronic migraine G43.709 ; E ssential hypertension I10 ; Iron deficiency anemia, unspecified iron deficiency anemia type D50.9 and Long-term use of high-risk medication Z79.899 [facility] [place] [address] [facility] [id number] [address] [place] [address] Feb, Seasonal allergic rhinitis, unspecified allergic rhinitis trigger J30.2 and Chronic migraine G43.709 [facility] [place] [address] [facility] [id number] [address] [place] [address] Feb, Anxiety F41.9 [facility] [place] [address] [place] [id number] [address] [place] [address] Feb, Exposure to pertussis Z20.81 8 [facility] [place] [address] [place] [id number] [address] [place] [address] Jan, [place] [address] [place] [address] Jan, Chronic migraine G43.709 and Anxiety F41.9 [place] [address] [place] [id number] [address] [place] [address] December, Anxiety F41.9 [place] [address] [address] Nov, Chronic migraine G43.709 ; S easonal allergic rhinitis, unspecified allergic rhinitis trigger J30.2 ; Vitamin D deficiency E55.9 ; Nocturnal dyspnea R06.00 ; Daytime hypersomnia G47.19 and Anxiety F41.9 [place] [id number] [place] [address] Nov, Chronic migraine G43.709 [place] [address] [place] [id number] [address] [place] [address] Oct, [place] [address] [address] Sep, Carpal tunnel syndrome, bila teral G56.03 [facility] [place] [address] [place] [id number] [address] [place] [address] Sep, Chronic migraine G43.709 [place] [address] [place] [id number] [address] [place] [address] Aug, [place] [address] [place] [id number] [address] [place] [address] Jul, Seasonal allergic rhinitis, unspecified allergic rhinitis trigger J30.2 [place] [address] [place] [id number] [address] [place] [address] Jul, Seasonal allergic rhinitis, unspecified allergic rhinitis trigger J30.2 [facility] [place] [address] [facility] [id number] [address] [place] [address] Jul, Chronic migraine G43.709 [facility] [place] [address] [facility] [id number] [address] [place] [address] Jun, [facility] [address] [id number] [address] [place] [id number] May, Dental caries K02.9 [facility] [place] [address] [facility] [id number] [address] [place] [address] May, Chronic migraine G43.709 [facility] [place] [address] [facility] [id number] [address] [place] [address] Apr, Chronic migraine G43.709 ; I yvette deficiency anemia, unspecified iron deficiency anemia type D50.9 ; Perimenopausal N95.1 and Vitamin D deficiency E55.9 [facility] [place] [address] [facility] [id number] [address] [place] [address] Mar, [facility] [place] [address] [facility] [id number] [address] [place] [address] Mar, Seasonal allergic rhinitis, unspecified allergic rhinitis trigger J30.2 [facility] [place] [address] [facility] [id number] [address] [place] [address] Mar, Chronic migraine G43.709 [facility] [place] [address] [facility] [id number] [address] [place] [address] Mar, [facility] [place] [address] [facility] [id number] [address] [place] [address] Mar, Chronic migraine G43.709 ; I rregular menses N92.6 ; Iron deficiency anemia, unspecified iron deficiency anemia type D50.9 and General medical exam Z00.00 [facility] [place] [address] [facility] [id number] [address] [place] [address] Mar, Chronic migraine G43.709 ; I yvette deficiency anemia, unspecified iron deficiency anemia type D50.9 ; Irregular menses N92.6 and General medical exam Z00.00 [facility] [address] [id number] [address] [place] [address] [id number] Feb, Dental examination Z01.20 [facility] [place] [address] [id number] [address] [place] [address] Feb, Chronic tension-type headach e, 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 and Seasonal allergic rhinitis, unspecified allergic rhinitis trigger J30.2 [facility] [place] [address] [id number] [address] [place] [address] Feb, [facility] [place] [address] [id number] [address] [place] [address] Jan, Seasonal allergic rhinitis, unspecified allergic rhinitis trigger J30.2 [facility] [place] [address] [facility] [id number] [address] [place] [address] December, Chronic tension-type headach e, 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 [facility] [address] [id number] [address] [place] [address] [id number] December, Dental examination Z01.20 [facility] [place] [address] [facility] [id number] [address] [place] [address] December, [facility] [place] [address] [id number] [address] [place] [address] Oct, [facility] [place] [address] [id number] [address] [place] [address] Oct, [facility] [address] [id number] [address] [place] [address] Oct, Sore throat J02.9 and Season al allergic rhinitis, unspecified allergic rhinitis trigger J30.2 [facility] [place] [address] [id number] [address] [place] [address] Oct, [facility] [place] [address] [facility] [id number] [address] [place] [address] Sep, [facility] [place] [address] [facility] [id number] [address] [place] [address] Aug, Menstrual periods irregular N92.6 ; Chronic tension-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, 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 ; Acute upper respiratory infection, unspecified J06.9 and Other viral agents as the cause of diseases classified elsewhere B97.89 [facility] [place] [address] [facility] [id number] [address] [place] [address] Jul, [facility] [place] [address] [facility] [id number] [address] [place] [address] Jul, [facility] [place] [address] [place] [id number] [address] [place] [address] Jul, Migraine without aura and wi thout status migrainosus, not intractable G43.009 [facility] [place] [address] [place] [id number] [address] [place] [address] Jun, [facility] [place] [address] [place] [id number] [address] [place] [address] May, Migraine without aura and wi thout status migrainosus, not intractable G43.009 [facility] [place] [address] [place] [id number] [address] [place] [address] May, [facility] [place] [address] [place] [id number] [address] [place] [address] May, [facility] [address] [place] [id number] [address] [place] [address] [id number] Mar, Dental examination Z01.20 [facility] [place] [address] [facility] [id number] [address] [place] [phone] Mar, [facility] [place] [address] [place] [id number] [address] [place] [address] Jan, Onychomycosis B35.1 [facility] [place] [address] [place] [id number] [address] [place] [address] Jan, [facility] [place] [address] [place] [id number] [address] [place] [address] 04 Dec, 2015 Dental caries K02.9 [facility] [place] [address] [id number] [address] [place] [address] Nov, Dental examination Z01.20 [facility] [place] [address] [id number] [address] [place] [address] 09 Oct, 2015 Dental examination Z01.20 [facility] [place] [address] [id number] [address] [place] [address] 04 Oct, 2015 [facility] [place] [address] [facility] [id number] [address] [place] [address] 02 Oct, 2015 Migraine G43.909 [facility] [place] [address] [facility] [id number] [address] [place] [address] 26 Sep, 2015 Onychomycosis B35.1 [facility] [place] [address] [place] [id number] [address] [place] [address] Sep, [facility] [place] [address] [id number] [address] [place] [address] Aug, [facility] [place] [address] [place] [id number] [address] [place] [address] Jul, [facility] [place] [address] [place] [id number] [address] [place] [address] 16 Apr, 2015 [facility] [place] [address] [place] [id number] [address] [place] [address] 10 Apr, 2015 Right anterior knee pain 719 .46 [facility] [place] [address] [facility] [id number] [address] [place] [address] 14 Mar, 2015 Tendonitis 726.90 ; HTN (hyp ertension) 401.9 ; Tremors of nervous system 781.0 and Anxiety 300.00 [facility] [place] [address] [place] [id number] [address] [place] [address] 12 Mar, 2015 Thrush 112.0 [facility] [place] [address] [place] [id number] [address] [place] [phone] Feb, [facility] [place] [address] [id number] [address] [place] [address] Feb, Tremors of nervous system 78 1.0 and Carpal tunnel syndrome 354.0 [facility] [place] [address] [facility] [id number] [address] [place] [address] Jan, Anxiety 300.00 ; Tremors of nervous system 781.0 and Tendonitis 726.90 [facility] [place] [address] [facility] [id number] [address] [place] [address] Jan, Anxiety 300.00 ; Tremors of nervous system 781.0 and Tendonitis 726.90 [facility] [place] [address] [facility] [id number] [address] [place] [address] Jan, Sinusitis 473.9 [facility] [place] [address] [id number] [address] [place] [address] December, [facility] [place] [address] [id number] [address] [place] [address] December, [facility] [place] [address] [facility] [id number] [address] [place] [address] December, [facility] [place] [address] [facility] [id number] [address] [place] [address] December, [facility] [place] [address] [facility] [id number] [address] [place] [address] December, [facility] [place] [address] [facility] [id number] [address] [place] [address] Nov, [facility] [place] [address] [id number] [address] [place] [address] Nov, [facility] [place] [address] [facility] [id number] [address] [place] [address] Sep, [facility] [place] [address] [facility] [id number] [address] [place] [address] Sep, [facility] [address] [id number] [address] [place] [address], [place] [address] Sep, [facility] [address] [id number] [address] [place] [address], [place] [address] Sep, [facility] [address] [id number] [address] [place] [address], [place] [address] Jul, [facility] [address] [id number] [address] [place] [address], [place] [address] Jul, [facility] [address] [id number] [address] [place] [address], [place] [address] Jul, [facility] [address] [id number] [address] [place] [address], [place] [address] Jul, [facility] [address] [id number] [address] [place] [address], [place] [address] Jul, [facility] [address] [id number] [address] [place] [address], [place] [address] Jul, [facility] [address] [id number] [address] [place] [address], [place] [address] Jul, [facility] [address] [id number] [address] [place] [address], [place] [address] Jul, [facility] [address] [id number] [address] [place] [address], [place] [address] Jul, [facility] [address] [id number] [address] [place] [address], [place] [address] Jul, [facility] [address] [id number] [address] [place] [address], [place] [address] Jun, [facility] [address] [id number] [address] [place] [address], [place] [address] Jun, [facility] [address] [id number] [address] [place] [address], [place] [address] Jun, [facility] [address] [id number] [address] [place] [address], [place] [address] Jun, [facility] [address] [id number] [address] [place] [address], [place] [address] May, [facility] [address] [id number] [address] [place] [address], [place] [address] 28 May, 2014 [facility] [address] [id number] [address] [place] [address], [place] [address] 14 May, 2014 [facility] [address] [id number] [address] [place] [address], [place] [address] 14 May, 2014 [facility] [address] [id number] [address] [place] [address], [place] [address] 17 Apr, 2014 [facility] [address] [id number] [address] [place] [address], [place] [address] 17 Apr, 2014 [facility] [address] [id number] [address] [place] [address], [place] [address] 17 Apr, 2014 [facility] [address] [id number] [address] [place] [address], [place] [address] 17 Apr, 2014 [facility] [address] [id number] [address] [place] [address], [place] [address] 16 Apr, 2014 [facility] [address] [id number] [address] [place] [address], [place] [address] 16 Apr, 2014 [facility] [address] [id number] [address] [place] [address], [place] [address] 03 Apr, 2014 [facility] [address] [id number] [address] [place] [address], [place] [address] Apr, [facility] [address] [id number] [address] [place] [address], [place] [address] Mar, [facility] [address] [id number] [address] [place] [address], [place] [address] Mar, [facility] [address] [id number] [address] [place] [address], [place] [address] Feb, [facility] [address] [id number] [facility] [address] Feb, [facility] [address] [id number] [facility] [address] Feb, [facility] [address] [id number] [address] [place] [address], [place] [address] Feb, [facility] [address] [id number] [address] [place] [address], [place] [address] Jan, [facility] [address] [id number] [address] [place] [address], [place] [address] Jan, [facility] [address] [id number] [address] [place] [address], [place] [address] Jan, [facility] [address] [id number] [address] [place] [address], [place] [address] Jan, [facility] [address] [id number] [address] [place] [address], [place] [address] Jan, [facility] [address] [id number] [address] [place] [address], [place] [address] Jan, [facility] [address] [id number] [address] [place] [address], [place] [address] December, [facility] [address] [id number] [address] [place] [address], [place] [address] December, [facility] [address] [id number] [address] [place] [address], [place] [address] December, [facility] [address] [id number] [address] [place] [address], [place] [address] December, [facility] [address] [id number] [address] [place] [address], [place] [address] December, [facility] [address] [id number] [address] [place] [address], [place] [address] Nov, [facility] [address] [id number] [address] [place] [address], [place] [address] Nov, [facility] [address] [id number] [address] [place] [address], [place] [address] Nov, [facility] [address] [id number] [address] [place] [address], [place] [address] Nov, [facility] [address] [id number] [address] [place] [address], [place] [address] Nov, [facility] [address] [id number] [address] [place] [address], [place] [id number] Nov, [facility] [address] [id number] [address] [place] [address], [place] [id number] Oct, [facility] [address] [id number] [address] [place] [address], [place] [id number] Oct, [facility] [address] [id number] [address] [place] [address], [place] [id number] Oct, [facility] [address] [id number] [address] [place] [address], [place] [id number] Oct, [facility] [address] [id number] [address] [place] [address], [place] [id number] Sep, [facility] [address] [id number] [address] [place] [address], [place] [id number] Sep, [facility] [address] [id number] [address] [place] [address], [place] [id number] Sep, [facility] [address] [id number] [address] [place] [address], [place] [id number] Sep, [facility] [address] [id number] [address] [place] [address], [place] [id number] Sep, [facility] [address] [id number] [address] [place] [address], [place] [id number] Sep, [facility] [address] [id number] [address] [place] [address], [place] [id number] Sep, [facility] [address] [id number] [address] [place] [address], [place] [id number] Sep, [facility] [address] [id number] [address] [place] [address], [place] [id number] Sep, [facility] [address] [id number] [address] [place] [address], [place] [id number] Sep, [facility] [address] [id number] [address] [place] [address], [place] [id number] Sep, [facility] [address] [id number] [address] [place] [address], [place] [id number] Sep, [facility] [address] [id number] [address] [place] [address], [place] [id number] Sep, [facility] [address] [id number] [address] [place] [address], [place] [id number] Aug, [facility] [address] [id number] [address] [place] [address], [place] [id number] Aug, [facility] [address] [id number] [address] [place] [address], [place] [id number] Jul, [facility] [address] [id number] [address] [place] [address], [place] [id number] Jul, [facility] [address] [id number] [address] [place] [address], [place] [id number] Jun, [facility] [address] [id number] [address] [place] [address], [place] [id number] Jun, [facility] [address] [id number] [address] [place] [address], [place] [id number] May, [facility] [address] [id number] [address] [place] [address], [place] [id number] Apr, [facility] [address] [id number] [address] [place] [address], [place] [id number] Mar, [facility] [address] [id number] [address] [place] [address], [place] [id number] Jan, [facility] [address] [id number] [address] [place] [address], [place] [id number] December, [facility] [address] [id number] [address] [place] [address], [place] [id number] December, [facility] [address] [id number] [address] [place] [address], [place] [id number] Oct, [facility] [address] [id number] [address] [place] [address], [place] [id number] Oct, [facility] [address] [id number] [address] [place] [address], [place] [id number] Sep, [facility] [address] [id number] [address] [place] [address], [place] [id number] Aug, [facility] [address] [id number] [address] [place] [address], [place] [id number] Aug, [facility] [address] [id number] [address] [place] [address], [place] [id number] Jul, [facility] [address] [id number] [address] [place] [address], [place] [id number] Jul, [facility] [address] [id number] [address] [place] [address], [place] [id number] Mar, [facility] [address] [id number] [address] [place] [address], [place] [id number] Mar, [facility] [address] [id number] [address] [place] [address], [place] [id number] Feb, [facility] [address] [id number] [address] [place] [address], [place] [id number] Feb, [facility] [address] [id number] [address] [place] [address], [place] [id number] Feb, [facility] [address] [id number] [address] [place] [address], [place] [id number] Jan, [facility] [address] [id number] [address] [place] [address], [place] [id number] 26 Nov, 2011 [facility] [address] [id number] [address] [place] [address], [place] [id number] 17 Sep, 2011 [facility] [address] [id number] [address] [place] [address], [place] [id number] 15 Sep, 2011 [facility] [address] [id number] [address] [place] [address], [place] [id number] 10 Sep, 2011 [facility] [address] [id number] [address] [place] [address], [place] [id number] Aug, [facility] [address] [id number] [address] [place] [address], [place] [id number] Aug, [facility] [address] [id number] [address] [place] [address], [place] [id number] Aug, [facility] [address] [id number] [address] [place] [address], [place] [id number] Jun, [facility] [address] [id number] [address] [place] [address], [place] [id number] Jun, [facility] [address] [id number] [address] [place] [address], [place] [id number] Jun, [facility] [address] [id number] [address] [place] [address], [place] [id number] Jun, [facility] [address] [id number] [address] [place] [address], [place] [id number] 25 May, 2011 [facility] [address] [id number] [address] [place] [address], [place] [id number] 18 May, 2011 [facility] [address] [id number] [address] [place] [address], [place] [id number] 18 May, 2011 [facility] [address] [id number] [address] [place] [address], [place] [id number] 14 May, 2011 [facility] [address] [id number] [address] [place] [address], [place] [id number] Jun, [facility] [place] [address] [facility] [id number] [address] [place] [id number] December, [facility] [place] [address] [facility] [id number] [address] [place] [id number] May, IMMUNIZATIONS No Known Immunizations SOCIAL HISTORY Never Assessed REASON FOR VISIT PLAN OF CARE VITAL SIGNS Height 64 in 2013-01-22 Weight 141.44 lbs 2013-01-22 Heart Rate 80 bpm 2013-01-22 Respiratory Rate 20 2013-01-22 Blood pressure systolic 120 mmHg 2013-01-22 Blood pressure diastolic 80 mmHg 2013-01-22 MEDICATIONS No Known Medications RESULTS No Results [...]
--- OUTSIDE RECORDS SUMMARY | 2020-03-17 19:08 | XMS REPORT ---
Author Author Ann MCHUGH Organization [facility] Address [address] [place] [address] Care Team Providers Care Supervisor [employer] Name Role Phone RAFAELA MCHUGH Unavailable PROBLEMS Type Condition ICD9-CM Code DOD18-JD Code Onset Dates Condition S tatus SNOMED Code Problem Perimenopausal N95.1 Active 99734 [id number] Problem Seasonal allergic rhinitis, unspecified allergic rhinitis trigger J30.2 Active 880911970 Problem Chronic migraine G43.709 Active 377 45252 Problem Anxiety F41.9 Active 05246562 Problem Vitamin D deficiency E55.9 Active 44229049 Problem Essential hypertension I10 Active 72603934 Problem Iron deficiency anemia, unspecified iron deficiency an emia type D50.9 Active 15875481 Problem Carpal tunnel syndrome, bilateral G56.03 Active [id number] Problem Daytime hypersomnia G47.19 Active [id number] Problem Nocturnal dyspnea R06.00 Active 24 0202652 ALLERGIES No Information ENCOUNTERS Encounter Location Date Diagnosis [facility] [address] [facility] [id number] [address] [place] [address] December, Strain of lumbar region, ini tial encounter S39.012A [facility] [address] [place] [id number] [address] [place] [id number] Apr, Chronic migraine G43.709 ; E ssential hypertension I10 ; Iron deficiency anemia, unspecified iron deficiency anemia type D50.9 and Long-term use of high-risk medication Z79.899 [facility] [address] [facility] [id number] [address] [place] [id number] Feb, Seasonal allergic rhinitis, unspecified allergic rhinitis trigger J30.2 and Chronic migraine G43.709 [facility] [address] [facility] [id number] [address] [place] [address] Feb, Anxiety F41.9 [facility] [address] [place] [id number] [address] [place] [address] Feb, Exposure to pertussis Z20.81 8 [facility] [address] [place] [id number] [address] [place] [address] Jan, [place] [address] [place] [address] Jan, Chronic migraine G43.709 and Anxiety F41.9 [place] [address] [place] [id number] [address] [place] [address] December, Anxiety F41.9 [place] [address] [address] Nov, Chronic migraine G43.709 ; S easonal allergic rhinitis, unspecified allergic rhinitis trigger J30.2 ; Vitamin D deficiency E55.9 ; Nocturnal dyspnea R06.00 ; Daytime hypersomnia G47.19 and Anxiety F41.9 [place] [id number] [place] [address] Nov, Chronic migraine G43.709 [place] [address] [place] [id number] [address] [place] [address] Oct, [place] [address] [address] Sep, Carpal tunnel syndrome, bila teral G56.03 [facility] [address] [place] [id number] [address] [place] [address] Sep, Chronic migraine G43.709 [place] [address] [place] [id number] [address] [place] [address] Aug, [place] [address] [place] [id number] [address] [place] [id number] Jul, Seasonal allergic rhinitis, unspecified allergic rhinitis trigger J30.2 [place] [address] [place] [id number] [address] [place] [id number] Jul, Seasonal allergic rhinitis, unspecified allergic rhinitis trigger J30.2 [facility] [address] [facility] [id number] [address] [place] [address] Jul, Chronic migraine G43.709 [facility] [address] [facility] [id number] [address] [place] [address] Jun, [facility] [address] [id number] [address] [place] [address] [id number] May, Dental caries K02.9 [facility] [address] [facility] [id number] [address] [place] [address] May, Chronic migraine G43.709 [facility] [address] [facility] [id number] [address] [place] [address] Apr, Chronic migraine G43.709 ; I yvette deficiency anemia, unspecified iron deficiency anemia type D50.9 ; Perimenopausal N95.1 and Vitamin D deficiency E55.9 [facility] [address] [facility] [id number] [address] [place] [address] Mar, [facility] [address] [facility] [id number] [address] [place] [address] Mar, Seasonal allergic rhinitis, unspecified allergic rhinitis trigger J30.2 [facility] [address] [facility] [id number] [address] [place] [address] Mar, Chronic migraine G43.709 [facility] [address] [facility] [id number] [address] [place] [address] Mar, [facility] [address] [facility] [id number] [address] [place] [address] Mar, Chronic migraine G43.709 ; I rregular menses N92.6 ; Iron deficiency anemia, unspecified iron deficiency anemia type D50.9 and General medical exam Z00.00 [facility] [address] [facility] [id number] [address] [place] [address] Mar, Chronic migraine G43.709 ; I yvette deficiency anemia, unspecified iron deficiency anemia type D50.9 ; Irregular menses N92.6 and General medical exam Z00.00 [facility] [address] [id number] [address] [place] [id number] Feb, Dental examination Z01.20 [facility] [address] [id number] [address] [place] [address] Feb, Chronic tension-type headach e, 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 and Seasonal allergic rhinitis, unspecified allergic rhinitis trigger J30.2 [facility] [address] [id number] [address] [place] [address] Feb, [facility] [address] [id number] [address] [place] [address] Jan, Seasonal allergic rhinitis, unspecified allergic rhinitis trigger J30.2 [facility] [address] [facility] [id number] [address] [place] [address] December, Chronic tension-type headach e, 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 [facility] [address] [id number] [address] [place] [address] [id number] December, Dental examination Z01.20 [facility] [address] [facility] [id number] [address] [place] [address] December, [facility] [address] [id number] [address] [place] [phone] Oct, [facility] [address] [id number] [address] [place] [phone] Oct, [facility] [address] [id number] [address] [place] [id number] Oct, Sore throat J02.9 and Season al allergic rhinitis, unspecified allergic rhinitis trigger J30.2 [facility] [address] [id number] [address] [place] [id number] Oct, [facility] [address] [facility] [id number] [address] [place] [id number] Sep, [facility] [address] [facility] [id number] [address] [place] [id number] Aug, Menstrual periods irregular N92.6 ; Chronic tension-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, 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 ; Acute upper respiratory infection, unspecified J06.9 and Other viral agents as the cause of diseases classified elsewhere B97.89 [facility] [address] [facility] [id number] [address] [place] [id number] Jul, [facility] [address] [facility] [id number] [address] [place] [id number] Jul, [facility] [address] [place] [id number] [address] [place] [id number] Jul, Migraine without aura and wi thout status migrainosus, not intractable G43.009 [facility] [address] [place] [id number] [address] [place] [phone] Jun, [facility] [address] [place] [id number] [address] [place] [phone] May, Migraine without aura and wi thout status migrainosus, not intractable G43.009 [facility] [address] [place] [id number] [address] [place] [phone] May, [facility] [address] [place] [id number] [address] [place] [phone] May, [facility] [address] [place] [address] [id number] [address] [place] [address] [id number] Mar, Dental examination Z01.20 [facility] [address] [facility] [id number] [address] [place] [id number] Mar, [facility] [address] [place] [id number] [address] [place] [phone] Jan, Onychomycosis B35.1 [facility] [address] [place] [id number] [address] [place] [id number] Jan, [facility] [address] [place] [id number] [address] [place] [id number] 04 Dec, 2015 Dental caries K02.9 [facility] [address] [id number] [address] [place] [id number] Nov, Dental examination Z01.20 [facility] [address] [id number] [address] [place] [id number] 09 Oct, 2015 Dental examination Z01.20 [facility] [address] [id number] [address] [place] [id number] 04 Oct, 2015 [facility] [address] [facility] [id number] [address] [place] [id number] 02 Oct, 2015 Migraine G43.909 [facility] [address] [facility] [id number] [address] [place] [id number] 26 Sep, 2015 Onychomycosis B35.1 [facility] [address] [place] [id number] [address] [place] [phone] Sep, [facility] [address] [id number] [address] [place] [id number] Aug, [facility] [address] [place] [id number] [address] [place] [id number] Jul, [facility] [address] [place] [id number] [address] [place] [id number] 16 Apr, 2015 [facility] [address] [place] [id number] [address] [place] [id number] 10 Apr, 2015 Right anterior knee pain 719 .46 [facility] [address] [facility] [id number] [address] [place] [id number] 14 Mar, 2015 Tendonitis 726.90 ; HTN (hyp ertension) 401.9 ; Tremors of nervous system 781.0 and Anxiety 300.00 [facility] [address] [place] [id number] [address] [place] [id number] 12 Mar, 2015 Thrush 112.0 [facility] [address] [place] [id number] [address] [place] [id number] Feb, [facility] [address] [id number] [address] [place] [phone] Feb, Tremors of nervous system 78 1.0 and Carpal tunnel syndrome 354.0 [facility] [address] [facility] [id number] [address] [place] [id number] Jan, Anxiety 300.00 ; Tremors of nervous system 781.0 and Tendonitis 726.90 [facility] [address] [facility] [id number] [address] [place] [id number] Jan, Anxiety 300.00 ; Tremors of nervous system 781.0 and Tendonitis 726.90 [facility] [address] [facility] [id number] [address] [place] [phone] Jan, Sinusitis 473.9 [facility] [address] [id number] [address] [place] [phone] December, [facility] [address] [id number] [address] [place] [phone] December, [facility] [address] [facility] [id number] [address] [place] [phone] December, [facility] [address] [facility] [id number] [address] [place] [id number] December, [facility] [address] [facility] [id number] [address] [place] [id number] December, [facility] [address] [facility] [id number] [address] [place] [id number] Nov, [facility] [address] [id number] [address] [place] [phone] Nov, [facility] [address] [facility] [id number] [address] [place] [phone] Sep, [facility] [address] [facility] [id number] [address] [place] [phone] Sep, [facility] [address] [id number] [address] [place] [address], [place] [address] Sep, [facility] [address] [id number] [address] [place] [address], [place] [address] Sep, [facility] [address] [id number] [address] [place] [address], [place] [address] Jul, [facility] [address] [id number] [address] [place] [address], [place] [address] Jul, [facility] [address] [id number] [address] [place] [address], [place] [address] Jul, [facility] [address] [id number] [address] [place] [address], [place] [address] Jul, [facility] [address] [id number] [address] [place] [address], [place] [address] Jul, [facility] [address] [id number] [address] [place] [address], [place] [address] Jul, [facility] [address] [id number] [address] [place] [address], [place] [address] Jul, [facility] [address] [id number] [address] [place] [address], [place] [address] Jul, [facility] [address] [id number] [address] [place] [address], [place] [address] Jul, [facility] [address] [id number] [address] [place] [address], [place] [address] Jul, [facility] [address] [id number] [address] [place] [address], [place] [address] Jun, [facility] [address] [id number] [address] [place] [address], [place] [address] Jun, [facility] [address] [id number] [address] [place] [address], [place] [address] Jun, [facility] [address] [id number] [address] [place] [address], [place] [address] Jun, [facility] [address] [id number] [address] [place] [address], [place] [address] May, [facility] [address] [id number] [address] [place] [address], [place] [address] 28 May, 2014 [facility] [address] [id number] [address] [place] [address], [place] [address] 14 May, 2014 [facility] [address] [id number] [address] [place] [address], [place] [address] 14 May, 2014 [facility] [address] [id number] [address] [place] [address], [place] [address] 17 Apr, 2014 [facility] [address] [id number] [address] [place] [address], [place] [address] 17 Apr, 2014 [facility] [address] [id number] [address] [place] [address], [place] [address] 17 Apr, 2014 [facility] [address] [id number] [address] [place] [address], [place] [address] 17 Apr, 2014 [facility] [address] [id number] [address] [place] [address], [place] [address] 16 Apr, 2014 [facility] [address] [id number] [address] [place] [address], [place] [address] 16 Apr, 2014 [facility] [address] [id number] [address] [place] [address], [place] [address] 03 Apr, 2014 [facility] [address] [id number] [address] [place] [address], [place] [address] Apr, [facility] [address] [id number] [address] [place] [address], [place] [address] Mar, [facility] [address] [id number] [address] [place] [address], [place] [address] Mar, [facility] [address] [id number] [address] [place] [address], [place] [address] Feb, [facility] [address] [id number] [facility] [place] [address] Feb, [facility] [address] [id number] [facility] [place] [address] Feb, [facility] [address] [id number] [address] [place] [address], [place] [address] Feb, [facility] [address] [id number] [address] [place] [address], [place] [address] Jan, [facility] [address] [id number] [address] [place] [address], [place] [address] Jan, [facility] [address] [id number] [address] [place] [address], [place] [address] Jan, [facility] [address] [id number] [address] [place] [address], [place] [address] Jan, [facility] [address] [id number] [address] [place] [address], [place] [address] Jan, [facility] [address] [id number] [address] [place] [address], [place] [address] Jan, [facility] [address] [id number] [address] [place] [address], [place] [address] December, [facility] [address] [id number] [address] [place] [address], [place] [address] December, [facility] [address] [id number] [address] [place] [address], [place] [address] December, [facility] [address] [id number] [address] [place] [address], [place] [address] December, [facility] [address] [id number] [address] [place] [address], [place] [address] December, [facility] [address] [id number] [address] [place] [address], [place] [address] Nov, [facility] [address] [id number] [address] [place] [address], [place] [address] Nov, [facility] [address] [id number] [address] [place] [address], [place] [address] Nov, [facility] [address] [id number] [address] [place] [address], [place] [address] Nov, [facility] [address] [id number] [address] [place] [address], [place] [address] Nov, [facility] [address] [id number] [address] [place] [address], [place] [address] Nov, [facility] [address] [id number] [address] [place] [address], [place] [address] Oct, [facility] [address] [id number] [address] [place] [address], [place] [address] Oct, [facility] [address] [id number] [address] [place] [address], [place] [address] Oct, [facility] [address] [id number] [address] [place] [address], [place] [address] Oct, [facility] [address] [id number] [address] [place] [address], [place] [address] Sep, [facility] [address] [id number] [address] [place] [address], [place] [address] Sep, [facility] [address] [id number] [address] [place] [address], [place] [address] Sep, [facility] [address] [id number] [address] [place] [address], [place] [address] Sep, [facility] [address] [id number] [address] [place] [address], [place] [address] Sep, [facility] [address] [id number] [address] [place] [address], [place] [address] Sep, [facility] [address] [id number] [address] [place] [address], [place] [address] Sep, [facility] [address] [id number] [address] [place] [address], [place] [address] Sep, [facility] [address] [id number] [address] [place] [address], [place] [address] Sep, [facility] [address] [id number] [address] [place] [address], [place] [address] Sep, [facility] [address] [id number] [address] [place] [address], [place] [address] Sep, [facility] [address] [id number] [address] [place] [address], [place] [address] Sep, [facility] [address] [id number] [address] [place] [address], [place] [address] Sep, [facility] [address] [id number] [address] [place] [address], [place] [address] Aug, [facility] [address] [id number] [address] [place] [address], [place] [address] Aug, [facility] [address] [id number] [address] [place] [address], [place] [address] Jul, [facility] [address] [id number] [address] [place] [address], [place] [address] Jul, [facility] [address] [id number] [address] [place] [address], [place] [address] Jun, [facility] [address] [id number] [address] [place] [address], [place] [address] Jun, [facility] [address] [id number] [address] [place] [address], [place] [address] May, [facility] [address] [id number] [address] [place] [address], [place] [address] Apr, [facility] [address] [id number] [address] [place] [address], [place] [address] Mar, [facility] [address] [id number] [address] [place] [address], [place] [address] Jan, [facility] [address] [id number] [address] [place] [address], [place] [address] December, [facility] [address] [id number] [address] [place] [address], [place] [address] December, [facility] [address] [id number] [address] [place] [address], [place] [address] Oct, [facility] [address] [id number] [address] [place] [address], [place] [address] Oct, [facility] [address] [id number] [address] [place] [address], [place] [address] Sep, [facility] [address] [id number] [address] [place] [address], [place] [address] Aug, [facility] [address] [id number] [address] [place] [address], [place] [address] Aug, [facility] [address] [id number] [address] [place] [address], [place] [address] Jul, [facility] [address] [id number] [address] [place] [address], [place] [address] Jul, [facility] [address] [id number] [address] [place] [address], [place] [address] Mar, [facility] [address] [id number] [address] [place] [address], [place] [address] Mar, [facility] [address] [id number] [address] [place] [address], [place] [address] Feb, [facility] [address] [id number] [address] [place] [address], [place] [address] Feb, [facility] [facility] [address] [id number] [address] [place] [address], [place] [address] Feb, [facility] [address] [id number] [address] [place] [address], [place] [address] Jan, [facility] [address] [id number] [address] [place] [address], [place] [id number] 26 Nov, 2011 [facility] [address] [id number] [address] [place] [address], [place] [address] 17 Sep, 2011 [facility] [address] [id number] [address] [place] [address], [place] [id number] 15 Sep, 2011 [facility] [address] [id number] [address] [place] [address], [place] [address] 10 Sep, 2011 [facility] [address] [id number] [address] [place] [address], [place] [address] Aug, [facility] [address] [id number] [address] [place] [address], [place] [address] Aug, [facility] [address] [id number] [address] [place] [address], [place] [address] Aug, [facility] [address] [id number] [address] [place] [address], [place] [address] Jun, [facility] [address] [id number] [address] [place] [address], [place] [address] Jun, [facility] [address] [id number] [address] [place] [address], [place] [address] Jun, [facility] [address] [id number] [address] [place] [address], [place] [address] Jun, [facility] [address] [id number] [address] [place] [address], [place] [address] 25 May, 2011 [facility] [address] [id number] [address] [place] [address], [place] [address] 18 May, 2011 [facility] [address] [id number] [address] [place] [address], [place] [address] 18 May, 2011 [facility] [address] [id number] [address] [place] [address], [place] [address] 14 May, 2011 [facility] [address] [id number] [address] [place] [address], [place] [address] Jun, [facility] [address] [facility] [id number] [address] [place] [id number] December, [facility] [address] [facility] [id number] [address] [place] [id number] May, IMMUNIZATIONS No Known Immunizations SOCIAL HISTORY [...]
--- OUTSIDE RECORDS SUMMARY | 2020-03-17 19:08 | XMS REPORT ---
Author Author [place] [facility] Address [address] [place] [address] Care Team Providers Care Varying Exceptionalities Teacher Name Role Phone RAFAELA MCHUGH Unavailable Unavailable RAFAELA MCHUGH Unavailable Unavailable MADL, VICTOR M Unavailable Unavailable RAFAELA MCHUGH Unavailable [facility] Unavailable [phone] RAFAELA MCHUGH Unavailable MARKY CHASE Unavailable RAFAELA MCHUGH Unavailable RAFAELA MCHUGH Unavailable MADL, VICTOR M Unavailable TRAM SOLIMAN Unavailable MADL, VICTOR M Unavailable MADL, VICTOR M Unavailable MADL, VICTOR M Unavailable MADL, VICTOR M Unavailable MADL, VICTOR M Unavailable MADL, VICTOR M Unavailable MADL, VICTOR M Unavailable MADL, VICTOR M Unavailable MADL, VICTOR M Unavailable MADL, VICTOR M Unavailable MADL, VICTOR M Unavailable AKBAR ORTIZ Unavailable TONY BAZAN Unavailable MARIA LUZ MARTINEZ Unavailable Migration, Doctor Unavailable Unavailable Migration, Doctor Unavailable Unavailable Migration, Doctor Unavailable Unavailable LESLY GUILLEN, SHAN Crump Unavailable Unavailable SHILOH PEACOCK DO Unavailable Unavailable Migration, Doctor Unavailable Unavailable Migration, Doctor Unavailable Unavailable RAFAELA MCHUGH Unavailable Unavailable MCCORDANDERSON Unavailable JEISON, RAFAELA Unavailable JEISON, RAFAELA Unavailable JEISON, RAFAELA Unavailable JEISON, RAFAELA Unavailable Migration, Doctor Unavailable Unavailable JULIA English Unavailable JEISON, RAFAELA Unavailable JEISON, RAFAELA Unavailable JEISON, RAFAELA Unavailable EMMANUEL RAMOSWNYA Unavailable JEISON, RAFAELA Unavailable JEISON, RAFAELA Unavailable JEISON, RAFAELA Unavailable LUCIE Wilson Unavailable PIYUSH DENT Unavailable Migration, Doctor Unavailable Unavailable zzSANCHEZ, MANUEL Unavailable MOLLY URSZULA Unavailable JEISON, RAFAELA Unavailable zzSANCHEZ, MANUEL Unavailable zzSANCHEZ, MANUEL Unavailable zzSANCHEZ, MANUEL Unavailable zzSANCHEZ, MANUEL Unavailable JEISON, RAFAELA Unavailable zzSANCHEZ, MANUEL Unavailable RAFAELA MCHUGH Unavailable Migration, Doctor Unavailable Unavailable zzSANCHEZ, MANUEL Unavailable zzSANCHEZ, MANUEL Unavailable JEISON, RAFAELA Unavailable JEISON, RAFAELA Unavailable JEISON, RAFAELA Unavailable JEISON, RAFAELA Unavailable JEISON, RAFAELA Unavailable MARIA LUZ MARTINEZ Unavailable Unavailable Migration, Doctor Unavailable Unavailable RAFAELA MCHUGH Unavailable zzSANCHEZ, MANUEL Unavailable RAFAELA MCHUGH Unavailable RAFAELA MCHUGH Unavailable RAFAELA MCHUGH Unavailable Unavailable Unavailable Unavailable Unavailable Allergies Allergy Reported Allergen(s) Allergy Type Date of Reaction(s) Care Facility Classificati Onset Provider on Unclassified No Known Drug Allergies DA 12-30-2012 SHILOH PEACOCK DO Not (3 sources) Available ([id number]) Encounters Encounter Date Encounter Type Encounter Diagnosis Care Provider Facility Start: Patient encounter MARIA LUZ Crump [facility] 12-19-2019 procedure [facility] Start: [facility] Strain of muscle, CRYSTAL PHAM MAN [facility] 12-19-2019 CARE fascia and tendon of CARE lower back, initial encounter Start: Patient encounter 04-18-2018 Start: (IPT) Internal PCP Chronic migraine MARIA LUZ MARTINEZ [facility] [place] 04-18-2018 Transfer without aura, not intractable, without End: status migrainosus 04-18-2018 NEGATED Patient encounter VICTOR M [facility] Start: [facility] 11-30-2017 [place] ([id number]) Start: Patient encounter VICTOR M [facility] 10-04-2017 [facility] ([id number]) Start: Patient encounter SHAN GRACE MD Not Av ailable ([id number]) 01-24-2017 procedure Start: Patient encounter SHILOH PEACOCK DO Not Availab le ([id number]) 01-23-2017 procedure Start: Emergency department RAFAELA SERRANO DO Not A vailable ([id number]) 11-08-2016 patient visit End: 11-09-2016 Start: Patient encounter RAFAELA SERRANO DO Not Avai lable ([id number]) 11-08-2016 procedure Start: Patient encounter RAFAELA MCHUGH Not Availab le ([id number]) 06-02-2016 procedure Medical Equipment No Information Goals No Information Immunizations Immunizatio Immunization Notes Care Provider Facility n Date 05-21-2014 influenza, seasonal, Doctor Migration [facility] ([id number]) Interventions No Information Medications Medication Drug Dates Sig Sig (Original) Class(es) (Normalized) amoxicillin 500 mg oral Penicillin Start: take 1 capsule Amoxicillin 500 mg 1 capsule by Oral capsule -class 08-02-2012 by mouth three route 3 anushka es per day for 14 days 26 (1 source) Antibacter times daily Jul, 2012 Activ e ial Ikqujxvvxi-UYXB-Tpspjqiu Foqrovwpvh-WTFY-Jglmlkjw 50-325-40 MG 50-325-40 MG Orally every 4 hrs prn 1 ta blet as (1 source) needed 10 Active clindamycin 300 mg oral Lincosamid Start: take 1 capsule Clindamycin HCl 300 mg 1 capsule by Oral capsule e 09-12-2013 by mouth every route every 8 hours for 10 day(s) 05 (1 source) Antibacter eight hours Sep, 2013 Activ e ial codeine phosphate 2 Opioid Start: take 5 mL by Prome thazine-Codeine 6.25-10 mg/5 mL mg/ml / promethazine Agonist, 08-25-2012 mouth every take 5 mL by Oral route every 4 hours hydrochloride 1.25 mg/ml Phenothiaz four hours at for 5 day(s)take at bedtime Aug, oral solution ine bedtime Active (1 source) Flonase 50 mcg/act Start: take 1 spray(s) Flonase 5 0 mcg/act Nasally 1spray(s) (1 source) 09-09-2014 nasal route intranasally on a day take 1 sprays by once daily Nasal route 1 time per day in each nostril Sep, 30 days Active mupirocin 0.02 mg/mg RNA Start: Bactroban 2 % 1 agueda by Topical route 2 nasal ointment Synthetase 09-21-2013 times per day f or 14 day(s) Sep, (1 source) Inhibitor Active Antibacter ial ProAir HFA 90 Start: take 2 puff(s) ProAir HFA 90 m cg/actuation inhale 2 mcg/actuation 08-07-2013 by inhalation puffs by inhala tion route every 6 hours (1 source) every six hours PRN shortness of br eath/cough Jul, as needed for 2012 Active cough Proventil HFA 108 (90 take 2 puff(s) Proventil HFA 108 (90 Base) MCG/ACT Base) MCG/ACT by mouth every INHALE TWO PUFFS BY MOUTH EVERY 6 HOURS (1 source) six hours as NEEDED FOR SHORT NESS OF BREATH/COUGH needed for 25 Active cough sulfamethoxazole 800 mg Dihydrofol Start: take 1 tablet Bactrim DS 800-160 mg 1 tablet by Oral / trimethoprim 160 mg ate 11-21-2013 by mouth twice r oute 2 times per day for 10 day(s) 21 oral tablet Reductase daily Jun, 2013 Activ e (1 source) Inhibitor Antibacter ial, Sulfonamid e Antimicrob ial Payers The data below is from unstructured sources Payer Name Policy Number Subscriber Name Relationship [facility] [id number] Ann Sutton [id number] Self / Same As Patient Plan of Treatment The data below is from unstructured sources Discharge Date 01/23/17 2:57am Disposition 01 HOME, SELF-CARE Condition at Discharge Improved Instructions/Education Provided Migr anam Headache (DC) Prescriptions See Medication Section Referrals RAFAELA MCHUGH Order Date: Primary Care Physician Address: [place] [address] [facility] Order Date: Primary Care Physician Address: [address] [place] [address] Additional Instructions/Education HO ME, REST LOTS OF CLEAR LIQUIDS YOU MAY TAKE YOUR HOME ZOFRAN EVERY 4 HOURS NEEDED, AND YOU MAY TAKE UP TO 2 FIORCET EVERY 4 HOURS NEEDED FOR HEADACHE RETURN TO ER IF SYMPTOMS WORSEN All discharge instructions reviewed with patient and/or family. Voiced understanding. Discharge Date 01/24/17 11:58am Disposition 01 HOME, SELF-CARE Condition at Discharge Improved Instructions/Education Provided Migr anam Headache (DC) Forms Provided Work Release Form Prescriptions See Medication Section Referrals RAFAELA MCHUGH Order Date: Primary Care Physician Address: [place] [id number] [facility] Order Date: Primary Care Physician Address: [address] [place] [address] Additional Instructions/Education Al l discharge instructions reviewed with patient and/or family. Voiced understanding. Continue home medications as directed. follow-up with your doctor this week for recheck. Drink plenty of fluids. Return for worse pain, fever, vomiting, weakness, breathing problems or other concerns as needed. Activity Details Follow Up 2 Weeks, prn Reason: Activity Details Follow Up 6 Months with vit d prior Reason:LARRY Activity Details Follow Up prn Reason:hygiene and joselyn or TE #32 Activity Details Follow Up 6 Months, prn or pending s ktp study Reason:Anxiety Activity Details Follow Up 3 months or as indicated b y lab Reason: Problems Problem Problem Date Last Documented Episodic/Chr Provider Classificati Recorded Date onic on Asthma Unspecified asthma, uncomplicated Chronic SHILOH AYUSH DO (5 sources) Headache; Headache ; Translations: [Migraine, SHAN including unspecified, not intractable, STEBB INS migraine without status migrainosus] (4 sources) Other Other snf (current) drug Episodic TONY BAZAN aftercare therapy ; Translations: [ - (20 sources) Long-term use of high-risk medication Z79.899] Other Carpal tunnel syndrome, bilateral Chronic PIYUSH nervous upper limbs ; Translations: [ - HUE RTER system Carpal tunnel syndrome, huy ateral disorders G56.03] (20 sources) Other Bilateral carpal tunnel syndrome ; Chronic PIYUSH nervous Translations: [Carpal tunnel HUERTE R system syndrome, bilateral] disorders (20 sources) Other Bilateral carpal tunnel syndrome ; Doctor nervous Translations: [Carpal tunnel Migrat ion system syndrome, bilateral] disorders (17 sources) Residual Daytime hypersomnia ; Translations: Chronic PIYUSH codes; [Daytime hypersomnia] HUERTER unclassified (20 sources) Residual Daytime hypersomnia ; Translations: Episodic Doctor codes; [Daytime hypersomnia] Migration unclassified (17 sources) Residual Perimenopausal state ; Episodic Docto r codes; Translations: [Perimenopausal] Migr ation unclassified (20 sources) Sprains and Strain of muscle, fascia and tendon Episodic Doctor strains of lower back, initial encounter ; Migration (6 sources) Translations: [ - Strain of lumbar region, initial encounter S39.012A] Procedures Date Procedure Procedure Detail Performing Cl inician Start: Assay of thyroid [facility] 04-18-2018 stimulating hormone tsh Start: Blood count [facility] 04-18-2018 complete auto&auto difrntl wbc Start: Collection venous [facility] 04-18-2018 blood venipuncture Start: Comprehensive [facility] 04-18-2018 metabolic panel Start: Drug tst prsmv [facility] 04-18-2018 instrmnt chem analyzers pr date Start: Lipid panel [facility] 04-18-2018 Start: Iaadiadoo ANDERSON MCCORD 09-16-2014 influenza Start: Noninvasive ANDERSON MCCORD 09-16-2014 ear/pulse oximetry single deter Start: Methylprednisolone JULIA zzRAJOTTE 07-31-2014 80 MG inj Start: Therapeutic JULIA GerardoE 07-31-2014 prophylactic/dx injection subq/im Start: Assay of ferritin RAFAELA MCHUGH 04-23-2014 Start: Assay of iron RAFAELA MCHUGH 04-23-2014 Start: Blood count RAFAELA MCHUGH 04-23-2014 complete auto&auto difrntl wbc Start: Collection venous RAFAELA MCHUGH 04-23-2014 blood venipuncture Start: Comprehensive RAFAELA MCHUGH 04-23-2014 metabolic panel Start: Iron binding RAFAELA MCHUGH 04-23-2014 capacity Start: Radex shoulder Doctor Migration 02-21-2014 complete minimum 2 views Start: Blood [facility] complete auto&auto difrntl wbc Start: Collection venous [facility] 01-31-2014 blood venipuncture [facility]: [facility] 01-31-2014 test visual color cmprsn meths Start: 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 Start: Assay of thyroid MANUEL Tao 11-28-2013 stimulating hormone tsh Start: Blood count MANUEL Tao 11-28-2013 complete auto&auto difrntl wbc Start: Collection venous MANUEL Tao 11-28-2013 blood venipuncture Start: Comprehensive MANUEL Tao 11-28-2013 metabolic panel Start: Lipid panel MANUEL Tao 11-28-2013 Start: Cul bact xcpt MANUEL PerlaAleida 09-12-2013 urine blood/stool aerobic isol Results Test Name Value Interpreta Reference Facilit Date tion Range y Time urinalysis on 2018-04-18 Amphetamines Ql (U) Negative Invalid <500 ng/mL [facility][id number]) Benzodiazepines Positive Abnormal <100 ng/mL Communi Screen Ql (U) [facility] (19884) Benzoylecgonine Ql Negative Invalid <150 ng/mL Communi (U) Interpreta ty [facility] (34478) Creatinine mass conc 168.8 mg/dL Invalid > or = Commu ni (U) Interpreta 20.0 mg/dL ty tion Code [facility] (85949) Opiates Ql (U) Negative Invalid <100 ng/mL Communi Interpreta ty tion Code [facility] (60952) Tetrahydrocannabinol Negative Invalid <20 ng/mL Commu ni Ql (U) Interpreta ty tion Code [facility] (29047) thyroid on 2018-04-18 Thyrotropin Qn 1.66 m[IU]/L Normal mIU/L Communi [facility] (91466) other on 2018-04-18 Alphahydroxyalprazol 711 High <25 ng/mL Commu ni am [facility] (18284) Alphahydroxymidazola Negative Invalid <50 ng/mL Commu ni m Interpreta ty tion [facility] (95180) Alphahydroxytriazola Negative Invalid <50 ng/mL Commu ni m Interpreta ty tion [facility] (36688) Aminoclonazepam Negative Invalid <25 ng/mL Communi Interpreta ty tion Code [facility] (82830) Hydroxyethylflurazep Negative Invalid <50 ng/mL Commu ni am Interpreta ty tion [facility] (83851) Lorazepam Negative Invalid <50 ng/mL Communi Interpreta ty tion [facility] (31526) Nordiazepam Negative Invalid <50 ng/mL Communi Interpreta ty tion Code [facility] (68096) Oxazepam Negative Invalid <50 ng/mL Communi Interpreta ty tion [facility] (17973) Temazepam Negative Invalid <50 ng/mL Communi Interpreta ty tion [facility] (87955) Albumin/Globulin 1.3 Normal 1.0-2.5 Communi mass ratio (calc) [facility] (24046) Cholesterol in LDL 64 Normal mg/dL Communi mass conc (calc) [facility] (87545) Cholesterol non HDL 82 Normal <130 mg/dL Commun i mass conc (calc) ty [facility] (47794) Cholesterol.total/Ch 2.9 Normal <5.0 Commu ni olesterol in HDL (calc) ty mass ratio [facility] (66237) COMMENT Invalid Communi Interpreta ty tion Code [facility] (79071) Globulin Calculated 3.1 Normal 1.9-3.7 Commun i mass conc (S) g/dL ty (calc) [facility] (45718) medMATCH CONSISTENT Invalid Communi Aminoclonazepam Interpreta ty tion Code [facility] (29982) medMATCH CONSISTENT Invalid Communi Amphetamines Interpreta ty tion Code [facility] (78071) medMATCH aOH CONSISTENT Invalid Communi alprazolam Interpreta ty tion Code [facility] (41601) medMATCH aOH CONSISTENT Invalid Communi midazolam Interpreta ty tion Code [facility] (94113) medMATCH aOH CONSISTENT Invalid Communi triazolam Interpreta ty tion Code [facility] (84611) medMATCH Cocaine CONSISTENT Invalid Communi Metab Interpreta ty tion Code [facility] (34893) medMATCH Lorazepam CONSISTENT Invalid Communi Interpreta ty tion Code [facility] (07803) medMATCH Marijuana CONSISTENT Invalid Communi Metab Interpreta ty tion Code [facility] (93358) medMATCH Nordiazepam CONSISTENT Invalid Communi Interpreta ty tion Code [facility] (89797) medMATCH OH,Et CONSISTENT Invalid Communi flurazepam Interpreta ty tion Code [facility] (83276) medMATCH Opiates CONSISTENT Invalid Communi Interpreta ty tion Code [facility] (10037) medMATCH Oxazepam CONSISTENT Invalid Communi Interpreta ty tion Code [facility] (34485) medMATCH Oxycodone CONSISTENT Invalid Communi Interpreta ty tion Code [facility] (71427) medMATCH Temazepam CONSISTENT Invalid Communi Interpreta ty tion Code [facility] (17278) Oxidant Negative Invalid <200 Communi Interpreta mcg/mL ty tion Code [facility] (76845) Oxycodone Negative Invalid <100 ng/mL Communi Interpreta ty tion Code [facility] (02006) Prescribed Drug 1 Xanax(TM) Invalid Communi Interpreta ty tion Code [facility] (78521) metabolic panel on 2018-04-18 Albumin mass conc 4.1 g/dL Normal 3.6-5.1 Communi g/dL [facility] (86045) ALP enzyme act/vol 63 U/L Normal 33-115 U/L Communi [facility] (91769) ALT enzyme act/vol 16 U/L Normal 6-29 U/L Communi [facility] (88136) AST enzyme act/vol 13 U/L Normal 10-35 U/L Communi [facility] (54981) Bilirubin mass conc 0.3 mg/dL Normal 0.2-1.2 Commun i mg/dL [facility] (02129) Calcium mass conc 9.2 mg/dL Normal 8.6-10.2 Communi mg/dL [facility] (74872) Chloride molar conc 106 mmol/L Normal 98-110 Commun i mmol/L [facility] (57317) CO2 molar conc 27 mmol/L Normal 20-32 Communi mmol/L [facility] (72745) Creatinine mass conc 0.71 mg/dL Normal 0.50-1.10 Commu ni mg/dL [facility] (92933) GFR/1.73 sq M 117 mL/min/{1.73_m2} Normal > OR = 60 Com suman predicted among mL/min/1.7 ty blacks MDRD vol 3m2 Health rate/area (S/P/Bld) [facility] (03533) GFR/1.73 sq 101 mL/min/{1.73_m2} Normal > OR = 60 Commu ni M.predicted MDRD vol mL/min/1.7 ty rate/area 3m2 [facility] (32683) Glucose mass conc 87 mg/dL Normal 65-99 Communi mg/dL ty [facility] (27946) Potassium molar conc 3.8 mmol/L Normal 3.5-5.3 Commu ni mmol/L ty [facility] (68678) Protein mass conc 7.2 g/dL Normal 6.1-8.1 Communi g/dL ty [facility] (78644) Sodium molar conc 140 mmol/L Normal 135-146 Communi mmol/L ty [facility] (46296) Urea nitrogen mass 13 mg/dL Normal 7-25 mg/dL Communi conc [facility] (95821) Urea NOT APPLICABLE Invalid 6-22 Communi nitrogen/Creatinine Interpreta (calc) ty mass ratio tion Code [facility] (00726) hematology on 2018-04-18 Basophils Auto #/vol 0.022 10*3/uL Normal 0-200 Com suman (Bld) cells/uL [facility] (61699) Basophils/100 WBC 0.6 % Normal % Communi Auto (Bld) [facility] (13965) Eosinophils Auto 0.32 10*3/uL Normal 15-500 Communi #/vol (Bld) cells/uL [facility] (75526) Eosinophils/100 WBC 8.9 % Normal % Commun i Auto (Bld) [facility] (83406) Erythrocyte 12.2 % Normal 11.0-15.0 Communi distribution width % ty Auto Ratio (RBC) [facility] (06109) Hematocrit Auto 38.3 % Normal 35.0-45.0 Communi Volume Fraction % ty (Bld) [facility] (86924) Hemoglobin mass conc 12.9 g/dL Normal 11.7-15.5 Commu ni (Bld) g/dL [facility] (26134) Lymphocytes Auto 0.954 10*3/uL Normal 850-3900 Communi #/vol (Bld) cells/uL ty [facility] (33930) Lymphocytes/100 WBC 26.5 % Normal % Commun i Auto (Bld) [facility] (42475) MCH Auto Entitic 30.9 pg Normal 27.0-33.0 Communi mass (RBC) pg [facility] (19522) MCHC Auto mass conc 33.7 g/dL Normal 32.0-36.0 Commun i (RBC) g/dL [facility] (27050) MCV Auto Entitic 91.8 fL Normal 80.0-100.0 Communi volume (RBC) fL [facility] (05873) Monocytes Auto #/vol 0.349 10*3/uL Normal 200-950 Com suman (Bld) cells/uL [facility] (90234) Monocytes/100 WBC 9.7 % Normal % Communi Auto (Bld) [facility] (10273) Neutrophils Auto 1.955 10*3/uL Normal 7721-9505 Communi #/vol (Bld) cells/uL [facility] (85513) Neutrophils/100 WBC 54.3 % Normal % Commun i Auto (Bld) [facility] (68253) pH (Bld) 6.10 [pH] Invalid 4.5 - 9.0 Communi Interpreta ty tion Code [facility] (43247) Platelet mean volume 11.8 fL Normal 7.5-12.5 Commu ni Auto Entitic volume fL ty (Bld) [facility] (01143) Platelets Auto #/vol 237 10*3/uL Normal 140-400 Commu ni (Bld) Thousand/u ty L [facility] (05303) RBC Auto #/vol (Bld) 4.17 10*6/uL Normal 3.80-5.10 Comm uni Million/uL [facility] (33516) WBC Auto #/vol (Bld) 3.6 10*3/uL Low 3.8-10.8 Commu ni Thousand/u ty L [facility] (19309) cardiac on 2018-04-18 Cholesterol in HDL 43 mg/dL Low >50 mg/dL Communi mass conc [facility] (52359) Cholesterol mass 125 mg/dL Normal <200 mg/dL [facility] (28468) Triglyceride mass 97 mg/dL Normal <150 mg/dL [facility] (40611) other on 2017-03-11 25-Hydroxyvitamin 17.4 Low 30.0-100.0 Not 08-0 4-2 D2+25-Hydroxyvitamin ng/mL Availab 017 D3 mass conc le 11:48-0 (16847) 400 Albumin/Globulin 1.1 {ratio} Low 1.2-2.2 Not 08-0 4-2 mass ratio Availab 017 le 08:38-0 (63439) 400 Cholesterol in VLDL 16 mg/dL Invalid 5-40 mg/dL Not mass conc Interpreta Availab 017 tion Code le 08:49-0 (45626) 400 Cobalamin (Vitamin 373 pg/mL Invalid 211-946 Not 08-0 4-2 B12) mass conc Interpreta pg/mL Availab 017 tion Code le 10:26-0 (86472) 400 Estradiol (E2) mass 247.7 pg/mL Invalid pg/mL Not 0 8-04-2 conc Interpreta Availab 017 tion Code le 09:09-0 (64965) 400 Follitropin Qn 11.7 m[IU]/mL Invalid mIU/mL Not 08-0 4-2 Interpreta Availab 017 tion Code le 09:09-0 (45256) 400 Globulin Calculated 3.4 g/dL Invalid 1.5-4.5 Not -2 mass conc (S) Interpreta g/dL Availab 017 tion Code le 08:38-0 (57525) 400 Immature 0.0 10*3/uL Invalid 0.0-0.1 Not 03-11-2 granulocytes #/vol Interpreta x10E3/uL Availab 017 (Bld) tion Code le 08:46-0 (45435) 400 Immature 0 % Invalid % Not 03-11-2 granulocytes/100 WBC Interpreta Availab 017 (Bld) tion Code le 08:46-0 (67767) 400 Lutropin Qn 17.7 m[IU]/mL Invalid mIU/mL Not 2 Interpreta Availab 017 tion Code le 09:09-0 (38763) 400 Prolactin mass conc 23.2 ng/mL Invalid 4.8-23.3 Not -2 Interpreta ng/mL Availab 017 tion Code le 09:09-0 (09115) 400 metabolic panel on 2017-03-11 Albumin mass conc 3.6 g/dL Invalid 3.5-5.5 Not 03-11 -2 Interpreta g/dL Availab 017 tion Code le 08:38-0 (88081) 400 ALP enzyme act/vol 63 U/L Invalid 39-117 Not 08-0 4-2 Interpreta IU/L Availab 017 tion Code le 08:38-0 (34286) 400 ALT enzyme act/vol 15 U/L Invalid 0-32 IU/L Not 08-0 4-2 Interpreta Availab 017 tion Code le 08:40-0 (86456) 400 AST enzyme act/vol 12 U/L Invalid 0-40 IU/L Not 08-0 4-2 Interpreta Availab 017 tion Code le 08:40-0 (94428) 400 Bilirubin mass conc mg/dL Invalid 0.0-1.2 Not 08-2 Interpreta mg/dL Availab 017 tion Code le 08:38-0 (24803) 400 Calcium mass conc 8.7 mg/dL Invalid 8.7-10.2 Not 03-11 -2 Interpreta mg/dL Availab 017 tion Code le 08:38-0 (25133) 400 Chloride molar conc 104 mmol/L Invalid 96-106 Not 08 -04-2 Interpreta mmol/L Availab 017 tion Code le 08:29-0 (89918) 400 CO2 molar conc 21 mmol/L Invalid 18-29 Not 03-11-2 Interpreta mmol/L Availab 017 tion Code le 08:38-0 (83706) 400 Creatinine mass conc 0.67 mg/dL Invalid 0.57-1.00 Not 0 8-04-2 Interpreta mg/dL Availab 017 tion Code le 08:44-0 (08059) 400 GFR/1.73 sq M 121 mL/min/{1.73_m2} Invalid >59 Not predicted among Interpreta mL/min/1.7 Availab 017 blacks MDRD vol tion Code 3 le 08:44-0 rate/area (S/P/Bld) (84529) 400 GFR/1.73 sq M 105 mL/min/{1.73_m2} Invalid >59 Not predicted among Interpreta mL/min/1.7 Availab 017 non-blacks MDRD vol tion Code 3 le 08:44 -0 rate/area (S/P/Bld) (13922) 400 Glucose mass conc 83 mg/dL Invalid 65-99 Not 03-11 Interpreta mg/dL Availab 017 tion Code le 08:40-0 (95010) 400 Magnesium mass conc 2.1 mg/dL Invalid 1.6-2.3 Not 11-07 Interpreta mg/dL Availab 017 tion Code le 10:22-0 (96853) 400 Potassium molar conc 4.1 mmol/L Invalid 3.5-5.2 Not 0 Interpreta mmol/L Availab 017 tion Code le 08:29-0 (12958) 400 Protein mass conc 7.0 g/dL Invalid 6.0-8.5 Not 03-11 Interpreta g/dL Availab 017 tion Code le 08:38-0 (61574) 400 Sodium molar conc 139 mmol/L Invalid 134-144 Not 08-0 4-2 Interpreta mmol/L Availab 017 tion Code le 08:29-0 ([id number]) 400 Urea nitrogen mass 18 mg/dL Invalid 6-24 mg/dL Not 11-07 conc Interpreta Availab 017 tion Code le 08:38-0 ([id number]) 400 Urea 27 mg/mg High 9-23 Not nitrogen/Creatinine Availab 017 mass ratio le 08:44-0 (71140) 400 hematology on 2017-03-11 Basophils Auto #/vol 0.0 10*3/uL Invalid 0.0-0.2 Not (Bld) Interpreta x10E3/uL Availab 017 tion Code le 08:46-0 ([id number]) 400 Basophils/100 WBC 1 % Invalid % Not 03-11 Auto (Bld) Interpreta Availab 017 tion Code le 08:46-0 ([id number]) 400 Eosinophils Auto 0.4 10*3/uL Invalid 0.0-0.4 Not 08-0 4-2 #/vol (Bld) Interpreta x10E3/uL Availab 017 tion Code le 08:46-0 ([id number]) 400 Eosinophils/100 WBC 9 % Invalid % Not 11-07 Auto (Bld) Interpreta Availab 017 tion Code le 08:46-0 (73028) 400 Erythrocyte 14.2 % Invalid 12.3-15.4 Not distribution width Interpreta % Availab 017 Auto Ratio (RBC) tion Code le 08:46-0 ([id number]) 400 ESR Velocity (Bld) 28 mm/h Invalid 0-32 mm/hr Not 11-07 Interpreta Availab 017 tion Code le 08:39-0 ([id number]) 400 Hematocrit Auto 34.6 % Invalid 34.0-46.6 Not Volume Fraction Interpreta % Availab 017 (Bld) tion Code le 08:46-0 (81472) 400 Hemoglobin mass conc 11.8 g/dL Invalid 11.1-15.9 Not (Bld) Interpreta g/dL Availab 017 tion Code le 08:46-0 (78320) 400 Lymphocytes Auto 1.2 10*3/uL Invalid 0.7-3.1 Not 08-0 4-2 #/vol (Bld) Interpreta x10E3/uL Availab 017 tion Code le 08:46-0 (68708) 400 Lymphocytes/100 WBC 30 % Invalid % Not 11-07 Auto (Bld) Interpreta Availab 017 tion Code le 08:46-0 (38321) 400 MCH Auto Entitic 30.5 pg Invalid 26.6-33.0 Not mass (RBC) Interpreta pg Availab 017 tion Code le 08:46-0 ([id number]) 400 MCHC Auto mass conc 34.1 g/dL Invalid 31.5-35.7 Not 11-07 (RBC) Interpreta g/dL Availab 017 tion Code le 08:46-0 (80106) 400 MCV Auto Entitic 89 fL Invalid 79-97 fL Not 08-04- 2 volume (RBC) Interpreta Availab 017 tion Code le 08:46-0 (73787) 400 Monocytes Auto #/vol 0.6 10*3/uL Invalid 0.1-0.9 Not (Bld) Interpreta x10E3/uL Availab 017 tion Code le 08:46-0 (70532) 400 Monocytes/100 WBC 15 % Invalid % Not 03-11 Auto (Bld) Interpreta Availab 017 tion Code le 08:46-0 (39562) 400 Neutrophils Auto 1.9 10*3/uL Invalid 1.4-7.0 Not 08-0 4-2 #/vol (Bld) Interpreta x10E3/uL Availab 017 tion Code le 08:46-0 ([id number]) 400 Neutrophils/100 WBC 45 % Invalid % Not 11-07 Auto (Bld) Interpreta Availab 017 tion Code le 08:46-0 (62103) 400 Platelets Auto #/vol 269 10*3/uL Invalid 150-379 Not (Bld) Interpreta x10E3/uL Availab 017 tion Code le 08:46-0 (30789) 400 RBC Auto #/vol (Bld) 3.87 10*6/uL Invalid 3.77-5.28 Not Interpreta x10E6/uL Availab 017 tion Code le 08:46-0 ([id number]) 400 WBC Auto #/vol (Bld) 4.1 10*3/uL Invalid 3.4-10.8 Not Interpreta x10E3/uL Availab 017 tion Code le 08:46-0 (63844) 400 cardiac on 2017-03-11 Cholesterol in HDL 48 mg/dL Invalid >39 mg/dL Not 08-0 4-2 mass conc Interpreta Availab 017 tion Code le 08:53-0 (83845) 400 Cholesterol in LDL 51 mg/dL Invalid 0-99 mg/dL Not 11-07 mass conc Interpreta Availab 017 tion Code le 08:53-0 (18919) 400 Cholesterol mass 115 mg/dL Invalid 100-199 Not conc Interpreta mg/dL Availab 017 tion Code le 08:53-0 (80041) 400 Triglyceride mass 78 mg/dL Invalid 0-149 Not 03-112 conc Interpreta mg/dL Availab 017 tion Code le 08:49-0 ([id number]) 400 Social History The data below is from unstructured sources History Response Recorde d Date/Time Alcohol Use Denies Use 0 12/30/12 10:45pm Recreational Drug Use N 12/30/12 10:45pm Vital Signs Date Time Vital Sign Value Performing Clinician Facil ity 04-18-2018 BMI (Body Mass 21.44 kg/m2 [facility] 17:00-0400 Index) [facility] ([id number]) 04-18-2018 Body Temperature 97.5 [degF] [facility] 17:00-0400 [facility] ([id number]) 04-18-2018 Height 162.56 cm [facility] 17:00-0400 [facility] ([id number]) 04-18-2018 Weight 56.65 kg [facility] 17:00-0400 [facility] ([id number]) 09-16-2014 Body Temperature 97.8 [degF] [facility] 14:16-0500 [facility] ([id number]) 09-16-2014 Height 162.56 cm ANDERSON MCCORD [facility] 14:16-0500 [facility] ([id number]) 09-09-2014 Body Temperature 98.4 [degF] [facility] 09:00-0500 [facility] ([id number]) 09-09-2014 Body weight [address] [facility] 09:00-0500 [facility] ([id number]) 09-09-[address] [facility] 09:00-0500 [facility] ([id number]) 08-07-2014 Body Temperature 98.1 [degF] [facility] 10:01-0500 [facility] ([id number]) 08-07-2014 Body weight 61.[address] [facility] 10:01-0500 [facility] ([id number]) 08-07-[address] [facility] 10:01-0500 [facility] ([id number]) 07-31-2014 Body Temperature 98.2 [degF] JULIA English [facility] 10:52-0500 [facility] ([id number]) 07-31-2014 Body weight 61.24 kg JULIA English [facility] 10:52-0500 [facility] ([id number]) 07-31-2014 Height 162.56 cm [facility] 10:52-0500 [facility] ([id number]) 06-20-2014 Body Temperature 97.2 [degF] [facility] 15:08-0500 [facility] ([id number]) 06-20-2014 Body weight 62.05 kg [facility] 15:08-0500 [facility] ([id number]) 06-20-2014 Height 162.56 cm [facility] 15:08-0500 [facility] ([id number]) 04-24-2014 Body Temperature 98.2 [degF] [facility] 12:57-0400 [facility] ([id number]) 04-24-2014 Body weight 64.09 kg [facility] 12:57-0400 [facility] ([id number]) 04-24-[address] [facility] 12:57-0400 [facility] ([id number]) 01-31-2014 Body Temperature 97.6 [degF] [facility] 16:00-0400 [facility] ([id number]) 01-31-2014 Body weight 64.1 kg [facility] 16:00-0400 [facility] ([id number]) 01-31-2014 Height 162.56 cm [facility] 16:00-0400 [facility] ([id number]) 12-07-2013 Body height 162.56 cm [facility] 16:22-0400 [facility] ([id number]) 12-07-2013 Body temperature 97.6 [degF] [facility] 16:220400 [facility] ([id number]) 12-07-2013 Body weight 65.[address] [facility] 16:0400 [facility] ([id number]) 11-27-2013 Body height 162.56 cm [facility] 17:130400 [facility] ([id number]) 11-27-2013 Body temperature 98.2 [degF] [facility] 17:1304[facility] ([id number]) 11-27-2013 Body weight 66.91 kg [facility] 17:130400 [facility] ([id number]) 10-12-2013 Body height 162.[address] [facility] 15:0500 [facility] ([id number]) 10-12-2013 Body temperature 98.1 [degF] [facility] 15:220500 [facility] ([id number]) 10-12-2013 Body weight 66.[address] [facility] 15:220500 [facility] ([id number]) 09-12-2013 Body height 162.56 cm [facility] 11:200500 [facility] ([id number]) 09-12-2013 Body temperature 98 [degF] [facility] 11:200500 [facility] ([id number]) 09-12-2013 Body weight 64.41 kg [facility] 11:20-0500 [facility] ([id number]) 09-11-2013 Body height 162.56 cm [facility] 10:37-0500 [facility] ([id number]) 09-11-2013 Body temperature 97.7 [degF] [facility] 10:37-0500 [facility] ([id number]) 09-11-2013 Body weight 64.41 kg [facility] 10:37-0500 [facility] ([id number]) 08-07-2013 Body height 162.[address] [facility] 14:46-0500 [facility] ([id number]) 08-07-2013 Body temperature 97.7 [degF] RAFAELA MCHUGH [facility] 14:46-0500 [facility] ([id number]) 08-07-2013 Body weight [address] [facility] 14:46-0500 [facility] ([id number]) 06-28-2013 Body height 162.56 cm [facility] 09:36-0500 Other Phone: [facility] ([id number]) 06-28-2013 Body temperature 97.4 [degF] [facility] 09:36-0500 Other Phone: [facility] ([id number]) 06-28-2013 Body weight 64.15 kg [facility] 09:36-0500 Other Phone: [facility] ([id number]) 01-22-2013 Body height 162.[address] [facility] 12:16-0400 Other Phone: [facility] ([id number]) 01-22-2013 Body weight 64.[address] [facility] 12:16-0400 Other Phone: [facility] ([id number]) Functional Status The data below is from unstructured sources Query Response Date Delonte rded Patient Orientation Person Place Time Situation January 23, 2017 2:04am Comprehension Ability Understands Co ncepts January 23, 2017 2:04am Query Response Date Delonte rded Patient Orientation Person Place Time Situation Normal For Age January 24, 2017 8:15am Comprehension Ability Understands Co ncepts January 24, 2017 8:15am Mental Status No Information History general Narrative - Reported Note Date & Note Facility Type History general Narrative - Reported Type Medical asthma-childhood agravated hot or cold History Medical seasonal allergies- nasal c ongestion, otalgia, eyes itch History Medical migraine headaches History Medical anemia History Medical high blood pressure History Medical Unspecified iron deficiency anemia History Medical Perimenopausal History Medical Vitamin D deficiency History Surgical cholecystectomy 2004 History Hospitalizatio choleystectomy n History [facility] ([id number]) Summary Purpose eClinicalWorks SubmissioneClinicalWorks SubmissioneClinicalWorks SubmissioneClinicalWorks SubmissioneClinicalWorks SubmissioneClinicalWorks SubmissioneClinicalWorks SubmissioneClinicalWorks Submission Advance Directives Directive Response Recor ded Date Advance Directives N 10:45pm Organ Donor N 12/30/12 1 0:45pm Directive Response Recor ded Date/Time Advance Directives No 9:28pm Organ Donor No 11/08/16 9:28pm Directive Response Recor ded Date/Time Advance Directives No 8:15am Organ Donor No 01/24/17 8:15am Resuscitation Status Full Code 01/24/17 8:15am Discharge Instructions No hospital discharge instruction information available.No hospital discharge instruction information available. Additional Source Comments This clinical document has been generated using [employer] software that has been certified by the Office of the National Coordinator for Health Information Technology (ONC 15.99.04.3023.Diam.31.00.0.547668) and the National Committee for Backhaul Driver (NCQA, as an eMeasure certified technology). FOR RECORDS PERTAINING TO PATIENTS WHO ARE OR HAVE BEEN ENROLLED IN A CHEMICAL D EPENDENCY/SUBSTANCE ABUSE PROGRAM, SOME INFORMATION MAY BE OMITTED. This clinica l summary was aggregated from multiple sources. Caution should be exercised in using it in the provision of clinical care. This summary normalizes information from multiple sources, and as a consequence, information in this document may ma terially change the coding, format and clinical context of patient data. In zac tion, data may be omitted in some cases. CLINICAL DECISIONS SHOULD BE BASED ON T HE PRIMARY CLINICAL RECORDS. [employer] provides no warranty or guara ntee of the accuracy or completeness of information in this document.The followi ng information is based on time limited clinical information UNRECOGNIZED CONTENT PROVIDED BELOW FOR UNRECOGNIZED SECTION MEDICAL (GENERAL) HISTORY Type Description Date Medical History asthma-childhood agr avated hot or cold Medical History seasonal allergies- nasal congestion, otalgia, eyes itch Medical History migraine headaches Medical History anemia Medical History high blood pressure Medical History Unspecified iron def iciency anemia Medical History Perimenopausal Medical History Vitamin D deficiency Surgical History cholecystectomy 2003 Hospitalization History choleystectomy UNRECOGNIZED CONTENT PROVIDED BELOW FOR UNRECOGNIZED SECTION REASON FOR VISIT ProphylaxisRefill requestEstablish Care/ Needs meds. Oswald Mccall-MigEMR-Marie
--- OUTSIDE RECORDS SUMMARY | 2020-03-17 19:09 | XMS REPORT ---
Author Author Ann Tao Organization [facility] Address [address] [place] [address] Care Team Providers Care Dry Curer Name Role Phone MANUEL Tao Unavailable PROBLEMS Type Condition ICD9-CM Code XTC39-HN Code Onset Dates Condition S tatus SNOMED Code Problem Perimenopausal N95.1 Active 95543 [id number] Problem Seasonal allergic rhinitis, unspecified allergic rhinitis trigger J30.2 Active 119400332 Problem Chronic migraine G43.709 Active 377 80513 Problem Anxiety F41.9 Active 71704713 Problem Vitamin D deficiency E55.9 Active 57096348 Problem Essential hypertension I10 Active 41091587 Problem Iron deficiency anemia, unspecified iron deficiency an emia type D50.9 Active 72597344 Problem Carpal tunnel syndrome, bilateral G56.03 Active [id number] Problem Daytime hypersomnia G47.19 Active 74005789788111 Problem Nocturnal dyspnea R06.00 Active 24 9362102 ALLERGIES No Information ENCOUNTERS Encounter Location Date Diagnosis [facility] [address] [facility] [id number] [address] [place] [address] December, Strain of lumbar region, ini tial encounter S39.012A [facility] [address] [place] [id number] [address] [place] [address] 11 Apr, 2018 Chronic migraine G43.709 ; E ssential hypertension I10 ; Iron deficiency anemia, unspecified iron deficiency anemia type D50.9 and Long-term use of high-risk medication Z79.899 [facility] [address] [place] [id number] [address] [place] [address] 18 Feb, 2018 Seasonal allergic rhinitis, unspecified allergic rhinitis trigger J30.2 and Chronic migraine G43.709 [facility] [address] [address] Feb, Anxiety F41.9 [place] [address] [address] Feb, Exposure to pertussis Z20.81 8 [facility] [address] [address] Jan, [place] [address] [address] Jan, Chronic migraine G43.709 and Anxiety F41.9 [place] [address] [address] December, Anxiety F41.9 [place] [address] [address] Nov, Chronic migraine G43.709 ; S easonal allergic rhinitis, unspecified allergic rhinitis trigger J30.2 ; Vitamin D deficiency E55.9 ; Nocturnal dyspnea R06.00 ; Daytime hypersomnia G47.19 and Anxiety F41.9 [place] [address] [address] Nov, Chronic migraine G43.709 [place] [address] [address] Oct, [place] [address] [address] Sep, Carpal tunnel syndrome, bila teral G56.03 [place] [address] [place] [id number] [address] [place] [address] Sep, Chronic migraine G43.709 [place] [address] [address] Aug, [place] [address] [address] Jul, Seasonal allergic rhinitis, unspecified allergic rhinitis trigger J30.2 [place] [address] [facility] [id number] [address] [place] [address] Jul, Seasonal allergic rhinitis, unspecified allergic rhinitis trigger J30.2 [facility] [address] [facility] [id number] [address] [place] [address] Jul, Chronic migraine G43.709 [facility] [address] [facility] [id number] [address] [place] [address] Jun, [facility] [address] [id number] [address] [address] [id number] May, Dental caries K02.9 [facility] [address] [facility] [id number] [address] [place] [address] May, Chronic migraine G43.709 [facility] [address] [facility] [id number] [address] [place] [address] Apr, Chronic migraine G43.709 ; I yvette deficiency anemia, unspecified iron deficiency anemia type D50.9 ; Perimenopausal N95.1 and Vitamin D deficiency E55.9 [facility] [address] [facility] [id number] [address] [place] [address] Mar, [facility] [address] [facility] [id number] [address] [place] [address] Mar, Seasonal allergic rhinitis, unspecified allergic rhinitis trigger J30.2 [facility] [address] [facility] [id number] [address] [place] [address] Mar, Chronic migraine G43.709 [facility] [address] [facility] [id number] [address] [place] [address] Mar, [facility] [address] [facility] [id number] [address] [place] [address] Mar, Chronic migraine G43.709 ; I rregular menses N92.6 ; Iron deficiency anemia, unspecified iron deficiency anemia type D50.9 and General medical exam Z00.00 [facility] [address] [facility] [id number] [address] [place] [address] Mar, Chronic migraine G43.709 ; I yvette deficiency anemia, unspecified iron deficiency anemia type D50.9 ; Irregular menses N92.6 and General medical exam Z00.00 [facility] [address] [id number] [address] [id number] Feb, Dental examination Z01.20 [facility] [address] [id number] [address] [place] [address] Feb, Chronic tension-type headach e, 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 and Seasonal allergic rhinitis, unspecified allergic rhinitis trigger J30.2 [facility] [address] [id number] [address] [place] [address] Feb, [facility] [address] [id number] [address] [place] [address] Jan, Seasonal allergic rhinitis, unspecified allergic rhinitis trigger J30.2 [facility] [address] [id number] [address] [place] [address] December, Chronic tension-type headach e, 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 [facility] [address] [id number] [address] [address] [id number] December, Dental examination Z01.20 [facility] [address] [id number] [address] [place] [address] December, [facility] [address] [id number] [address] [place] [address] Oct, [facility] [address] [id number] [address] [place] [address] Oct, [facility] [address] [id number] [address] [place] [address] Oct, Sore throat J02.9 and Season al allergic rhinitis, unspecified allergic rhinitis trigger J30.2 [facility] [address] [id number] [address] [place] [address] Oct, [facility] [address] [place] [id number] [address] [place] [address] 28 Sep, 2016 [facility] [address] [place] [id number] [address] [place] [address] Aug, Menstrual periods irregular N92.6 ; Chronic tension-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, 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 ; Acute upper respiratory infection, unspecified J06.9 and Other viral agents as the cause of diseases classified elsewhere B97.89 [facility] [address] [place] [id number] [address] [place] [address] Jul, [facility] [address] [place] [id number] [address] [place] [address] Jul, [facility] [address] [place] [id number] [place] [address] Jul, Migraine without aura and wi thout status migrainosus, not intractable G43.009 [facility] [address] [place] [id number] [address] [place] [address] Jun, [facility] [address] [place] [id number] [address] [place] [address] May, Migraine without aura and wi thout status migrainosus, not intractable G43.009 [facility] [address] [place] [id number] [address] [place] [address] May, [facility] [address] [place] [id number] [address] [place] [address] May, [facility] [address] [place] [id number] [address] [id number] Mar, Dental examination Z01.20 [facility] [address] [place] [id number] [address] [place] [address] Mar, [facility] [address] [place] [id number] [address] [place] [address] Jan, Onychomycosis B35.1 [facility] [address] [place] [id number] [address] [place] [address] Jan, [facility] [address] [id number] [address] [place] [address] December, Dental caries K02.9 [facility] [address] [id number] [address] [place] [address] Nov, Dental examination Z01.20 [facility] [address] [id number] [address] [place] [address] 09 Oct, 2015 Dental examination Z01.20 [facility] [address] [id number] [address] [place] [address] Oct, [facility] [address] [id number] [address] [place] [address] Oct, Migraine G43.909 [facility] [address] [facility] [id number] [address] [place] [address] Sep, Onychomycosis B35.1 [facility] [address] [facility] [id number] [address] [place] [address] Sep, [facility] [address] [facility] [id number] [address] [place] [address] Aug, [facility] [address] [facility] [id number] [address] [place] [address] Jul, [facility] [address] [facility] [id number] [address] [place] [address] Apr, [facility] [address] [facility] [id number] [address] [place] [address] 10 Apr, 2015 Right anterior knee pain 719 .46 [facility] [address] [facility] [id number] [address] [place] [address] Mar, Tendonitis 726.90 ; HTN (hyp ertension) 401.9 ; Tremors of nervous system 781.0 and Anxiety 300.00 [facility] [address] [facility] [id number] [address] [place] [address] Mar, Thrush 112.0 [facility] [address] [id number] [address] [place] [address] Feb, [facility] [address] [id number] [address] [place] [address] Feb, Tremors of nervous system 78 1.0 and Carpal tunnel syndrome 354.0 [facility] [address] [id number] [address] [place] [address] Jan, Anxiety 300.00 ; Tremors of nervous system 781.0 and Tendonitis 726.90 [facility] [address] [id number] [address] [place] [address] Jan, Anxiety 300.00 ; Tremors of nervous system 781.0 and Tendonitis 726.90 [facility] [address] [id number] [address] [place] [address] Jan, Sinusitis 473.9 [facility] [address] [id number] [address] [place] [address] December, [facility] [address] [id number] [address] [place] [id number] December, [facility] [address] [id number] [address] [place] [address] December, [facility] [address] [facility] [id number] [address] [place] [address] December, [facility] [address] [id number] [address] [place] [address] December, [facility] [address] [id number] [address] [place] [address] Nov, [facility] [address] [id number] [address] [place] [address] Nov, [facility] [address] [id number] [address] [place] [address] Sep, [facility] [address] [id number] [address] [place] [phone] Sep, [facility] [address] [id number] [address] [place] [address], [place] [address] Sep, [facility] [address] [id number] [address] [place] [address], [place] [address] Sep, [facility] [address] [id number] [address] [place] [address], [place] [address] Jul, [facility] [address] [id number] [address] [place] [address], [place] [address] Jul, [facility] [address] [id number] [address] [place] [address], [place] [address] Jul, [facility] [address] [id number] [address] [place] [address], [place] [address] Jul, [facility] [address] [id number] [address] [place] [address], [place] [address] Jul, [facility] [address] [id number] [address] [place] [address], [place] [address] Jul, [facility] [address] [id number] [address] [place] [address], [place] [address] Jul, [facility] [address] [id number] [address] [place] [address], [place] [address] Jul, [facility] [address] [id number] [address] [place] [address], [place] [address] Jul, [facility] [address] [id number] [address] [place] [address], [place] [address] Jul, [facility] [address] [id number] [address] [place] [address], [place] [address] Jun, [facility] [address] [id number] [address] [place] [address], [place] [address] Jun, [facility] [address] [id number] [address] [place] [address], [place] [address] Jun, [facility] [address] [id number] [address] [place] [address], [place] [address] Jun, [facility] [address] [id number] [address] [place] [address], [place] [address] 28 May, 2014 [facility] [address] [id number] [address] [place] [address], [place] [address] 28 May, 2014 [facility] [address] [id number] [address] [place] [address], [place] [address] May, [facility] [address] [id number] [address] [place] [address], [place] [address] 14 May, 2014 [facility] [address] [id number] [address] [place] [address], [place] [address] 17 Apr, 2014 [facility] [address] [id number] [address] [place] [address], [place] [address] 17 Apr, 2013 [facility] [address] [id number] [address] [place] [address], [place] [address] 17 Apr, 2013 [facility] [address] [id number] [address] [place] [address], [place] [address] 17 Apr, 2013 [facility] [address] [id number] [address] [place] [address], [place] [address] 16 Apr, 2014 [facility] [address] [id number] [address] [place] [address], [place] [address] 16 Apr, 2014 [facility] [address] [id number] [address] [place] [address], [place] [address] 03 Apr, 2013 [facility] [address] [id number] [address] [place] [address], [place] [address] Apr, [facility] [address] [id number] [address] [place] [address], [place] [address] Mar, [facility] [address] [id number] [address] [place] [address], [place] [address] Mar, [facility] [address] [id number] [address] [place] [address], [place] [address] Feb, [facility] [address] [id number] [address] [place] [address], [place] [address] Feb, [facility] [address] [id number] [address] [place] [address], [place] [address] Feb, [facility] [address] [id number] [address] [place] [address], [place] [address] Feb, [facility] [address] [id number] [address] [place] [address], [place] [address] Jan, [facility] [address] [id number] [address] [place] [address], [place] [address] Jan, [facility] [address] [id number] [address] [place] [address], [place] [address] Jan, [facility] [address] [id number] [address] [place] [address], [place] [address] Jan, [facility] [address] [id number] [address] [place] [address], [place] [address] Jan, [facility] [address] [id number] [address] [place] [address], [place] [address] Jan, [facility] [address] [id number] [address] [place] [address], [place] [address] December, [facility] [address] [id number] [address] [place] [address], [place] [address] December, [facility] [address] [id number] [address] [place] [address], [place] [address] December, [facility] [address] [id number] [address] [place] [address], [place] [address] December, [facility] [address] [id number] [address] [place] [address], [place] [address] December, [facility] [address] [id number] [address] [place] [address], [place] [address] Nov, [facility] [address] [id number] [address] [place] [address], [place] [address] Nov, [facility] [address] [id number] [address] [place] [address], [place] [address] Nov, [facility] [address] [id number] [address] [place] [address], [place] [address] Nov, [facility] [address] [id number] [address] [place] [address], [place] [address] Nov, [facility] [address] [id number] [address] [place] [address], [place] [address] Nov, [facility] [address] [id number] [address] [place] [address], [place] [address] Oct, [facility] [address] [id number] [address] [place] [address], [place] [address] Oct, [facility] [address] [id number] [address] [place] [address], [place] [address] Oct, [facility] [address] [id number] [address] [place] [address], [place] [address] Oct, [facility] [address] [id number] [address] [place] [address], [place] [address] Sep, [facility] [address] [id number] [address] [place] [address], [place] [address] 14 Sep, 2013 [facility] [address] [id number] [address] [place] [address], [place] [address] 10 Sep, 2013 [facility] [address] [id number] [address] [place] [address], [place] [address] Sep, [facility] [address] [id number] [address] [place] [address], [place] [address] 07 Sep, 2013 [facility] [address] [id number] [address] [place] [address], [place] [address] 06 Sep, 2013 [facility] [address] [id number] [address] [place] [address], [place] [address] Sep, [facility] [address] [id number] [address] [place] [address], [place] [address] Sep, [facility] [address] [id number] [address] [place] [address], [place] [address] Sep, [facility] [address] [id number] [address] [place] [address], [place] [address] Sep, [facility] [address] [id number] [address] [place] [address], [place] [address] Sep, [facility] [address] [id number] [address] [place] [address], [place] [address] Sep, [facility] [address] [id number] [address] [place] [address], [place] [address] Sep, [facility] [address] [id number] [address] [place] [address], [place] [address] Aug, [facility] [address] [id number] [address] [place] [address], [place] [address] Aug, [facility] [address] [id number] [address] [place] [address], [place] [address] Jul, [facility] [address] [id number] [address] [place] [address], [place] [address] Jul, [facility] [address] [id number] [address] [place] [address], [place] [address] Jun, [facility] [address] [id number] [address] [place] [id number] Jun, [facility] [address] [id number] [address] [place] [address], [place] [address] May, [facility] [address] [id number] [address] [place] [address], [place] [address] Apr, [facility] [address] [id number] [address] [place] [address], [place] [address] Mar, [facility] [address] [id number] [address] [place] [address], [place] [address] Jan, [facility] [address] [id number] [address] [place] [address], [place] [address] December, [facility] [address] [id number] [address] [place] [address], [place] [address] December, [facility] [address] [id number] [address] [place] [address], [place] [address] Oct, [facility] [address] [id number] [address] [place] [address], [place] [address] Oct, [facility] [address] [id number] [address] [place] [address], [place] [address] Sep, [facility] [address] [id number] [address] [place] [address], [place] [address] Aug, [facility] [address] [id number] [address] [place] [address], [place] [address] Aug, [facility] [address] [id number] [address] [place] [address], [place] [address] Jul, [facility] [address] [id number] [address] [place] [address], [place] [address] Jul, [facility] [address] [id number] [address] [place] [address], [place] [address] Mar, [facility] [address] [id number] [address] [place] [address], [place] [address] Mar, [facility] [address] [id number] [address] [place] [address], [place] [address] Feb, [facility] [facility] [address] [id number] [address] [place] [address], [place] [address] Feb, [facility] [address] [id number] [address] [place] [address], [place] [address] Feb, [facility] [address] [id number] [address] [place] [address], [place] [address] Jan, [facility] [address] [id number] [address] [place] [address], [place] [address] 26 Nov, 2011 [facility] [address] [id number] [address] [place] [address], [place] [address] 17 Sep, 2011 [facility] [address] [id number] [address] [place] [address], [place] [id number] 15 Sep, 2011 [facility] [address] [id number] [address] [place] [address], [place] [address] Sep, [facility] [address] [id number] [address] [place] [address], [place] [address] Aug, [facility] [address] [id number] [address] [place] [address], [place] [address] Aug, [facility] [address] [id number] [address] [place] [address], [place] [address] Aug, [facility] [address] [id number] [address] [place] [address], [place] [address] Jun, [facility] [address] [id number] [address] [place] [address], [place] [address] Jun, [facility] [address] [id number] [address] [place] [address], [place] [address] Jun, [facility] [address] [id number] [address] [place] [address], [place] [address] Jun, [facility] [address] [id number] [address] [place] [id number] 25 May, 2011 [facility] [address] [id number] [address] [place] [address], [place] [address] 18 May, 2011 [facility] [address] [id number] [address] [place] [address], [place] [address] 18 May, 2011 [facility] [address] [id number] [address] [place] [address], [place] [address] 14 May, 2011 [facility] [address] [id number] [address] [place] [id number] Jun, [facility] [address] [facility] [id number] [address] [place] [id number] December, [facility] [address] [facility] [id number] [address] [place] [id number] May, IMMUNIZATIONS No Known Immunizations SOCIAL HISTORY Never Assessed REASON FOR VISIT PLAN OF CARE VITAL SIGNS Height 64 in 2013-06-28 Weight 141.43 lbs 2013-06-28 Temperature 97.4 degrees Fahrenheit 2013-06-28 Heart Rate 78 bpm 2013-06-28 Respiratory Rate 16 2013-06-28 Blood pressure systolic 136 mmHg 2013-06-28 Blood pressure diastolic 78 mmHg 2013-06-28 MEDICATIONS No Known Medications RESULTS No Results [...]
--- OUTSIDE RECORDS SUMMARY | 2020-03-17 19:09 | XMS REPORT ---
Author Author Ann MCHUGH Organization [facility] Address [address] [place] [address] Care Team Providers Care Human Resources Team Member Name Role Phone RAFAELA MCHUGH Unavailable PROBLEMS Type Condition ICD9-CM Code [id number] Code Onset Dates Condition S tatus SNOMED Code Problem Perimenopausal N95.1 Active 18060 [id number] Problem Seasonal allergic rhinitis, unspecified allergic rhinitis trigger J30.2 Active 523861679 Problem Chronic migraine G43.709 Active 377 78875 Problem Anxiety F41.9 Active 41739943 Problem Vitamin D deficiency E55.9 Active 20927976 Problem Essential hypertension I10 Active 25668299 Problem Iron deficiency anemia, unspecified iron deficiency an emia type D50.9 Active 60883426 Problem Carpal tunnel syndrome, bilateral G56.03 Active [id number] Problem Daytime hypersomnia G47.19 Active 34458259150310 Problem Nocturnal dyspnea R06.00 Active 24 2925407 ALLERGIES No Information ENCOUNTERS Encounter Location Date Diagnosis [place] [address] [place] [id number] [place] [address] Apr, Chronic migraine G43.709 ; E ssential hypertension I10 ; Iron deficiency anemia, unspecified iron deficiency anemia type D50.9 and Long-term use of high-risk medication Z79.899 [place] [id number] [facility] [id number] [address] [place] [address] Feb, Seasonal allergic rhinitis, unspecified allergic rhinitis trigger J30.2 and Chronic migraine G43.709 [place] [address] [facility] [id number] [address] [place] [address] Feb, Anxiety F41.9 [facility] [address] [place] [id number] [address] [place] [address] Feb, Exposure to pertussis Z20.81 8 [place] [address] [place] [id number] [place] [address] Jan, [place] [address] [address] Jan, Chronic migraine G43.709 and Anxiety F41.9 [place] [address] [address] December, Anxiety F41.9 [place] [address] [place] [id number] [place] [address] Nov, Chronic migraine G43.709 ; S easonal allergic rhinitis, unspecified allergic rhinitis trigger J30.2 ; Vitamin D deficiency E55.9 ; Nocturnal dyspnea R06.00 ; Daytime hypersomnia G47.19 and Anxiety F41.9 [place] [id number] [place] [address] Nov, Chronic migraine G43.709 [place] [address] [place] [id number] [address] [place] [address] Oct, [place] [address] [address] Sep, Carpal tunnel syndrome, bila teral G56.03 [place] [address] [place] [id number] [address] [place] [address] Sep, Chronic migraine G43.709 [place] [address] [place] [id number] [address] [place] [address] Aug, [place] [address] [place] [id number] [address] [place] [address] Jul, Seasonal allergic rhinitis, unspecified allergic rhinitis trigger J30.2 [place] [address] [place] [id number] [address] [place] [phone] Jul, Seasonal allergic rhinitis, unspecified allergic rhinitis trigger J30.2 [place] [address] [place] [id number] [address] [place] [address] Jul, Chronic migraine G43.709 [facility] [address] [facility] [id number] [address] [place] [address] Jun, [facility] [address] [id number] [address] [place] [id number] May, Dental caries K02.9 [facility] [address] [facility] [id number] [address] [place] [address] May, Chronic migraine G43.709 [facility] [address] [facility] [id number] [address] [place] [address] Apr, Chronic migraine G43.709 ; I yvette deficiency anemia, unspecified iron deficiency anemia type D50.9 ; Perimenopausal N95.1 and Vitamin D deficiency E55.9 [place] [id number] [facility] [id number] [address] [place] [address] Mar, [place] [address] [place] [id number] [address] [place] [address] Mar, Seasonal allergic rhinitis, unspecified allergic rhinitis trigger J30.2 [facility] [address] [facility] [id number] [address] [place] [address] Mar, Chronic migraine G43.709 [facility] [address] [facility] [id number] [address] [place] [address] Mar, [facility] [address] [facility] [id number] [address] [place] [address] Mar, Chronic migraine G43.709 ; I rregular menses N92.6 ; Iron deficiency anemia, unspecified iron deficiency anemia type D50.9 and General medical exam Z00.00 [facility] [address] [facility] [id number] [address] [place] [address] Mar, Chronic migraine G43.709 ; I yvette deficiency anemia, unspecified iron deficiency anemia type D50.9 ; Irregular menses N92.6 and General medical exam Z00.00 [facility] [address] [place] [id number] [address] [place] [id number] Feb, Dental examination Z01.20 [facility] [address] [id number] [address] [place] [address] Feb, Chronic tension-type headach e, 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 and Seasonal allergic rhinitis, unspecified allergic rhinitis trigger J30.2 [facility] [address] [id number] [address] [place] [address] Feb, [facility] [address] [id number] [address] [place] [address] Jan, Seasonal allergic rhinitis, unspecified allergic rhinitis trigger J30.2 [facility] [address] [facility] [id number] [address] [place] [address] December, Chronic tension-type headach e, 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 [facility] [address] [id number] [address] [place] [address] [id number] December, Dental examination Z01.20 [facility] [address] [id number] [address] [place] [address] December, [facility] [address] [facility] [id number] [address] [place] [address] Oct, [facility] [address] [id number] [address] [place] [address] Oct, [facility] [address] [facility] [id number] [address] [place] [phone] Oct, Sore throat J02.9 and Season al allergic rhinitis, unspecified allergic rhinitis trigger J30.2 [facility] [address] [id number] [address] [place] [address] Oct, [facility] [address] [facility] [id number] [address] [place] [id number] Sep, [facility] [address] [facility] [id number] [address] [place] [address] Aug, Menstrual periods irregular N92.6 ; Chronic tension-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, 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 ; Acute upper respiratory infection, unspecified J06.9 and Other viral agents as the cause of diseases classified elsewhere B97.89 [facility] [address] [id number] [address] [place] [id number] Jul, [facility] [address] [id number] [address] [place] [address] Jul, [facility] [address] [id number] [address] [place] [address] Jul, Migraine without aura and wi thout status migrainosus, not intractable G43.009 [facility] [address] [id number] [address] [place] [address] Jun, [facility] [address] [facility] [id number] [address] [place] [address] May, Migraine without aura and wi thout status migrainosus, not intractable G43.009 [facility] [address] [id number] [address] [place] [address] May, [facility] [address] [id number] [address] [place] [address] May, [facility] [address] [id number] [address] [place] [address] [id number] Mar, Dental examination Z01.20 [facility] [address] [id number] [address] [place] [address] Mar, [facility] [address] [facility] [id number] [address] [place] [address] Jan, Onychomycosis B35.1 [facility] [address] [id number] [address] [place] [address] Jan, [facility] [address] [facility] [id number] [address] [place] [address] December, Dental caries K02.9 [facility] [address] [id number] [address] [place] [address] Nov, Dental examination Z01.20 [facility] [address] [id number] [address] [place] [address] Oct, Dental examination Z01.20 [facility] [address] [id number] [address] [place] [address] Oct, [facility] [address] [id number] [address] [place] [address] Oct, Migraine G43.909 [facility] [address] [id number] [address] [place] [id number] Sep, Onychomycosis B35.1 [facility] [address] [id number] [address] [place] [address] Sep, [facility] [address] [facility] [id number] [address] [place] [address] Aug, [facility] [address] [facility] [id number] [address] [place] [address] Jul, [facility] [address] [id number] [address] [place] [phone] Apr, [facility] [address] [facility] [id number] [address] [place] [address] Apr, Right anterior knee pain 719 .46 [facility] [address] [facility] [id number] [address] [place] [address] Mar, Tendonitis 726.90 ; HTN (hyp ertension) 401.9 ; Tremors of nervous system 781.0 and Anxiety 300.00 [facility] [address] [id number] [address] [place] [address] Mar, Thrush 112.0 [facility] [address] [facility] [id number] [address] [place] [phone] Feb, [facility] [address] [facility] [id number] [address] [place] [id number] Feb, Tremors of nervous system 78 1.0 and Carpal tunnel syndrome 354.0 [facility] [address] [id number] [address] [place] [address] Jan, Anxiety 300.00 ; Tremors of nervous system 781.0 and Tendonitis 726.90 [facility] [address] [id number] [address] [place] [address] Jan, Anxiety 300.00 ; Tremors of nervous system 781.0 and Tendonitis 726.90 [facility] [address] [id number] [address] [place] [address] Jan, Sinusitis 473.9 [facility] [address] [id number] [address] [place] [address] December, [facility] [address] [id number] [address] [place] [phone] December, [facility] [address] [id number] [address] [place] [phone] December, [facility] [address] [id number] [address] [place] [address] December, [facility] [address] [id number] [address] [place] [phone] December, [facility] [address] [facility] [id number] [address] [place] [phone] Nov, [facility] [address] [id number] [address] [place] [address] Nov, [facility] [address] [id number] [address] [place] [phone] Sep, [facility] [address] [id number] [address] [place] [phone] Sep, [facility] [address] [id number] [address] [place] [phone] Sep, [facility] [address] [id number] [address] [place] [phone] Sep, [facility] [address] [id number] [address] [place] [address], [place] [address] Jul, [facility] [address] [id number] [address] [place] [address], [place] [address] Jul, [facility] [address] [id number] [address] [place] [address], [place] [address] Jul, [facility] [address] [id number] [address] [place] [address], [place] [address] Jul, [facility] [address] [id number] [address] [place] [address], [place] [address] Jul, [facility] [address] [id number] [address] [place] [address], [place] [address] Jul, [facility] [address] [id number] [address] [place] [address], [place] [address] Jul, [facility] [address] [id number] [address] [place] [address], [place] [address] Jul, [facility] [address] [id number] [address] [place] [address], [place] [address] Jul, [facility] [address] [id number] [address] [place] [address], [place] [address] Jul, [facility] [address] [id number] [address] [place] [address], [place] [address] Jun, [facility] [address] [id number] [address] [place] [address], [place] [address] Jun, [facility] [address] [id number] [address] [place] [address], [place] [address] Jun, [facility] [address] [id number] [address] [place] [address], [place] [address] Jun, [facility] [address] [id number] [address] [place] [address], [place] [address] May, [facility] [address] [id number] [address] [place] [address], [place] [address] 28 May, 2014 [facility] [address] [id number] [address] [place] [address], [place] [address] 14 May, 2014 [facility] [address] [id number] [address] [place] [address], [place] [address] 14 May, 2014 [facility] [address] [id number] [address] [place] [address], [place] [address] 17 Apr, 2013 [facility] [address] [id number] [address] [place] [address], [place] [address] 17 Apr, 2013 [facility] [address] [id number] [address] [place] [address], [place] [address] 17 Apr, 2013 [facility] [address] [id number] [address] [place] [address], [place] [address] 17 Apr, 2013 [facility] [address] [id number] [address] [place] [address], [place] [address] 16 Apr, 2013 [facility] [address] [id number] [address] [place] [address], [place] [address] 16 Apr, 2013 [facility] [address] [id number] [address] [place] [address], [place] [address] 03 Apr, 2014 [facility] [address] [id number] [address] [place] [address], [place] [address] 03 Apr, 2014 [facility] [address] [id number] [address] [place] [address], [place] [address] Mar, [facility] [address] [id number] [address] [place] [address], [place] [address] Mar, [facility] [address] [id number] [address] [place] [address], [place] [address] Feb, [facility] [address] [id number] [address] [place] [address], [place] [address] Feb, [facility] [address] [id number] [address] [place] [address], [place] [address] Feb, [facility] [address] [id number] [facility] [place] [address] Feb, [facility] [address] [id number] [facility] [place] [address] Jan, [facility] [address] [id number] [address] [place] [address], [place] [address] Jan, [facility] [address] [id number] [address] [place] [address], [place] [address] Jan, [facility] [address] [id number] [address] [place] [address], [place] [address] Jan, [facility] [address] [id number] [address] [place] [address], [place] [address] Jan, [facility] [address] [id number] [address] [place] [address], [place] [address] Jan, [facility] [address] [id number] [address] [place] [address], [place] [address] December, [facility] [address] [id number] [address] [place] [address], [place] [address] December, [facility] [address] [id number] [address] [place] [address], [place] [address] December, [facility] [address] [id number] [address] [place] [address], [place] [address] December, [facility] [address] [id number] [address] [place] [address], [place] [address] December, [facility] [address] [id number] [address] [place] [address], [place] [address] Nov, [facility] [address] [id number] [address] [place] [address], [place] [address] Nov, [facility] [address] [id number] [address] [place] [address], [place] [address] Nov, [facility] [address] [id number] [address] [place] [address], [place] [address] 23 Nov, 2013 [facility] [address] [id number] [address] [place] [address], [place] [address] Nov, [facility] [address] [id number] [address] [place] [address], [place] [address] Nov, [facility] [address] [id number] [address] [place] [address], [place] [address] Oct, [facility] [address] [id number] [address] [place] [address], [place] [address] Oct, [facility] [address] [id number] [address] [place] [address], [place] [address] Oct, [facility] [address] [id number] [address] [place] [address], [place] [address] Oct, [facility] [address] [id number] [address] [place] [address], [place] [address] 14 Sep, 2013 [facility] [address] [id number] [address] [place] [address], [place] [address] 14 Sep, 2013 [facility] [address] [id number] [address] [place] [address], [place] [address] 10 Sep, 2013 [facility] [address] [id number] [address] [place] [address], [place] [address] 10 Sep, 2013 [facility] [address] [id number] [address] [place] [address], [place] [address] 07 Sep, 2013 [facility] [address] [id number] [address] [place] [address], [place] [address] 06 Sep, 2013 [facility] [address] [id number] [address] [place] [address], [place] [address] 06 Sep, 2013 [facility] [address] [id number] [address] [place] [address], [place] [address] 05 Sep, 2013 [facility] [address] [id number] [address] [place] [address], [place] [address] Sep, [facility] [address] [id number] [address] [place] [address], [place] [address] Sep, [facility] [address] [id number] [address] [place] [address], [place] [address] Sep, [facility] [address] [id number] [address] [place] [address], [place] [address] Sep, [facility] [address] [id number] [address] [place] [address], [place] [address] Sep, [facility] [address] [id number] [address] [place] [address], [place] [address] Aug, [facility] [address] [id number] [address] [place] [address], [place] [address] Aug, [facility] [address] [id number] [address] [place] [address], [place] [address] Jul, [facility] [address] [id number] [address] [place] [address], [place] [address] Jul, [facility] [address] [id number] [address] [place] [address], [place] [address] Jun, [facility] [address] [id number] [address] [place] [address], [place] [address] Jun, [facility] [address] [id number] [address] [place] [address], [place] [address] May, [facility] [address] [id number] [address] [place] [address], [place] [address] Apr, [facility] [address] [id number] [address] [place] [address], [place] [address] Mar, [facility] [address] [id number] [address] [place] [address], [place] [address] Jan, [facility] [address] [id number] [address] [place] [address], [place] [address] December, [facility] [address] [id number] [address] [place] [address], [place] [address] December, [facility] [address] [id number] [address] [place] [address], [place] [address] Oct, [facility] [address] [id number] [address] [place] [address], [place] [address] Oct, [facility] [address] [id number] [address] [place] [address], [place] [address] Sep, [facility] [address] [id number] [address] [place] [address], [place] [address] Aug, [facility] [address] [id number] [address] [place] [address], [place] [address] Aug, [facility] [address] [id number] [address] [place] [address], [place] [address] Jul, [facility] [address] [id number] [address] [place] [address], [place] [address] Jul, [facility] [address] [id number] [address] [place] [address], [place] [address] Mar, [facility] [address] [id number] [address] [place] [address], [place] [address] Mar, [facility] [address] [id number] [address] [place] [address], [place] [address] Feb, [facility] [address] [id number] [address] [place] [address], [place] [address] Feb, [facility] [address] [id number] [address] [place] [address], [place] [address] Feb, [facility] [address] [id number] [address] [place] [address], [place] [address] Jan, [facility] [address] [id number] [address] [place] [address], [place] [address] Nov, [facility] [address] [id number] [address] [place] [address], [place] [address] 17 Sep, 2011 [facility] [address] [id number] [address] [place] [address], [place] [address] 15 Sep, 2011 [facility] [address] [id number] [address] [place] [address], [place] [address] Sep, [facility] [address] [id number] [address] [place] [address], [place] [address] Aug, [facility] [address] [id number] [address] [place] [address], [place] [address] Aug, [facility] [address] [id number] [address] [place] [address], [place] [address] Aug, [facility] [address] [id number] [address] [place] [address], [place] [address] Jun, [facility] [address] [id number] [address] [place] [address], [place] [address] Jun, [facility] [address] [id number] [address] [place] [address], [place] [address] Jun, [facility] [address] [id number] [address] [place] [address], [place] [address] Jun, [facility] [address] [id number] [address] [place] [address], [place] [address] May, [facility] [address] [id number] [address] [place] [address], [place] [address] May, [facility] [address] [id number] [address] [place] [id number] May, [facility] [address] [id number] [address] [place] [address], [place] [address] May, [facility] [address] [id number] [address] [place] [address], [place] [address] Jun, [facility] [address] [id number] [address] [place] [address], [place] [address] December, [facility] [address] [id number] [facility] [place] [address] 29 May, 2009 IMMUNIZATIONS No Known Immunizations SOCIAL HISTORY Never [...]
--- OUTSIDE RECORDS SUMMARY | 2020-03-17 19:09 | XMS REPORT ---
Author Author Ann MCHUGH Organization [facility] Address [address] [place] [address] Care Team Providers Care [facility]ist Name Role Phone RAFAELA MCHUGH Unavailable PROBLEMS Type Condition ICD9-CM Code XEE84-WM Code Onset Dates Condition S tatus SNOMED Code Problem Perimenopausal N95.1 Active 07588 [id number] Problem Seasonal allergic rhinitis, unspecified allergic rhinitis trigger J30.2 Active 538764897 Problem Chronic migraine G43.709 Active 377 50080 Problem Anxiety F41.9 Active 17433256 Problem Vitamin D deficiency E55.9 Active 14385824 Problem Essential hypertension I10 Active 97180065 Problem Iron deficiency anemia, unspecified iron deficiency an emia type D50.9 Active 80578055 Problem Carpal tunnel syndrome, bilateral G56.03 Active [id number] Problem Daytime hypersomnia G47.19 Active [id number] Problem Nocturnal dyspnea R06.00 Active 24 3902834 ALLERGIES No Information ENCOUNTERS Encounter Location Date Diagnosis [facility] [address] [facility] [id number] [address] [place] [address] 13 Dec, 2019 Strain of lumbar region, ini tial encounter S39.012A [facility] [address] [place] [id number] [address] [place] [address] Apr, Chronic migraine G43.709 ; E ssential hypertension I10 ; Iron deficiency anemia, unspecified iron deficiency anemia type D50.9 and Long-term use of high-risk medication Z79.899 [facility] [address] [facility] [id number] [address] [place] [address] Feb, Seasonal allergic rhinitis, unspecified allergic rhinitis trigger J30.2 and Chronic migraine G43.709 [facility] [address] [facility] [id number] [address] [place] [address] Feb, Anxiety F41.9 [facility] [address] [place] [id number] [address] [place] [address] Feb, Exposure to pertussis Z20.81 8 [facility] [address] [place] [id number] [address] [place] [address] Jan, [place] [address] [place] [address] Jan, Chronic migraine G43.709 and Anxiety F41.9 [place] [address] [place] [id number] [address] [place] [address] December, Anxiety F41.9 [place] [address] [address] Nov, Chronic migraine G43.709 ; S easonal allergic rhinitis, unspecified allergic rhinitis trigger J30.2 ; Vitamin D deficiency E55.9 ; Nocturnal dyspnea R06.00 ; Daytime hypersomnia G47.19 and Anxiety F41.9 [place] [address] [place] [address] Nov, Chronic migraine G43.709 [place] [address] [place] [id number] [address] [place] [address] Oct, [place] [address] [address] Sep, Carpal tunnel syndrome, bila teral G56.03 [facility] [address] [place] [id number] [address] [place] [address] Sep, Chronic migraine G43.709 [place] [address] [place] [id number] [address] [place] [address] Aug, [place] [address] [place] [id number] [address] [place] [address] Jul, Seasonal allergic rhinitis, unspecified allergic rhinitis trigger J30.2 [place] [address] [place] [id number] [address] [place] [address] Jul, Seasonal allergic rhinitis, unspecified allergic rhinitis trigger J30.2 [facility] [address] [facility] [id number] [address] [place] [address] Jul, Chronic migraine G43.709 [facility] [address] [facility] [id number] [address] [place] [address] Jun, [facility] [address] [id number] [address] [place] [id number] May, Dental caries K02.9 [facility] [address] [facility] [id number] [address] [place] [address] May, Chronic migraine G43.709 [facility] [address] [facility] [id number] [address] [place] [address] Apr, Chronic migraine G43.709 ; I yvette deficiency anemia, unspecified iron deficiency anemia type D50.9 ; Perimenopausal N95.1 and Vitamin D deficiency E55.9 [facility] [address] [facility] [id number] [address] [place] [address] Mar, [facility] [address] [facility] [id number] [address] [place] [address] Mar, Seasonal allergic rhinitis, unspecified allergic rhinitis trigger J30.2 [facility] [address] [facility] [id number] [address] [place] [address] Mar, Chronic migraine G43.709 [facility] [address] [facility] [id number] [address] [place] [address] Mar, [facility] [address] [facility] [id number] [address] [place] [address] Mar, Chronic migraine G43.709 ; I rregular menses N92.6 ; Iron deficiency anemia, unspecified iron deficiency anemia type D50.9 and General medical exam Z00.00 [facility] [address] [facility] [id number] [address] [place] [address] Mar, Chronic migraine G43.709 ; I yvette deficiency anemia, unspecified iron deficiency anemia type D50.9 ; Irregular menses N92.6 and General medical exam Z00.00 [facility] [address] [id number] [address] [place] [id number] Feb, Dental examination Z01.20 [facility] [address] [id number] [address] [place] [address] Feb, Chronic tension-type headach e, 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 and Seasonal allergic rhinitis, unspecified allergic rhinitis trigger J30.2 [facility] [address] [id number] [address] [place] [address] Feb, [facility] [address] [id number] [address] [place] [address] Jan, Seasonal allergic rhinitis, unspecified allergic rhinitis trigger J30.2 [facility] [address] [facility] [id number] [address] [place] [address] December, Chronic tension-type headach e, 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 [facility] [address] [id number] [address] [place] [address] [id number] December, Dental examination Z01.20 [facility] [address] [facility] [id number] [address] [place] [address] December, [facility] [address] [id number] [address] [place] [address] Oct, [facility] [address] [id number] [address] [place] [address] Oct, [facility] [address] [id number] [address] [place] [address] Oct, Sore throat J02.9 and Season al allergic rhinitis, unspecified allergic rhinitis trigger J30.2 [facility] [address] [id number] [address] [place] [address] Oct, [facility] [address] [facility] [id number] [address] [place] [phone] Sep, [facility] [address] [facility] [id number] [address] [place] [address] Aug, Menstrual periods irregular N92.6 ; Chronic tension-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, 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 ; Acute upper respiratory infection, unspecified J06.9 and Other viral agents as the cause of diseases classified elsewhere B97.89 [facility] [address] [facility] [id number] [address] [place] [address] Jul, [facility] [address] [facility] [id number] [address] [place] [address] Jul, [facility] [address] [place] [id number] [address] [place] [address] Jul, Migraine without aura and wi thout status migrainosus, not intractable G43.009 [facility] [address] [place] [id number] [address] [place] [address] Jun, [facility] [address] [place] [id number] [address] [place] [address] May, Migraine without aura and wi thout status migrainosus, not intractable G43.009 [facility] [address] [place] [id number] [address] [place] [address] May, [facility] [address] [place] [id number] [address] [place] [address] May, [facility] [address] [place] [address] [id number] [address] [place] [address] [id number] Mar, Dental examination Z01.20 [facility] [address] [facility] [id number] [address] [place] [phone] Mar, [facility] [address] [place] [id number] [address] [place] [address] Jan, Onychomycosis B35.1 [facility] [address] [place] [id number] [address] [place] [address] Jan, [facility] [address] [place] [id number] [address] [place] [address] 04 Dec, 2015 Dental caries K02.9 [facility] [address] [id number] [address] [place] [address] Nov, Dental examination Z01.20 [facility] [address] [id number] [address] [place] [address] 09 Oct, 2015 Dental examination Z01.20 [facility] [address] [id number] [address] [place] [address] 04 Oct, 2015 [facility] [address] [facility] [id number] [address] [place] [address] 02 Oct, 2015 Migraine G43.909 [facility] [address] [facility] [id number] [address] [place] [phone] 26 Sep, 2015 Onychomycosis B35.1 [facility] [address] [place] [id number] [address] [place] [address] Sep, [facility] [address] [id number] [address] [place] [address] Aug, [facility] [address] [place] [id number] [address] [place] [phone] Jul, [facility] [address] [place] [id number] [address] [place] [phone] 16 Apr, 2015 [facility] [address] [place] [id number] [address] [place] [phone] 10 Apr, 2015 Right anterior knee pain 719 .46 [facility] [address] [facility] [id number] [address] [place] [address] 14 Mar, 2015 Tendonitis 726.90 ; HTN (hyp ertension) 401.9 ; Tremors of nervous system 781.0 and Anxiety 300.00 [facility] [address] [place] [id number] [address] [place] [id number] 12 Mar, 2015 Thrush 112.0 [facility] [address] [place] [id number] [address] [place] [address] Feb, [facility] [address] [id number] [address] [place] [address] Feb, Tremors of nervous system 78 1.0 and Carpal tunnel syndrome 354.0 [facility] [address] [facility] [id number] [address] [place] [address] Jan, Anxiety 300.00 ; Tremors of nervous system 781.0 and Tendonitis 726.90 [facility] [address] [facility] [id number] [address] [place] [address] Jan, Anxiety 300.00 ; Tremors of nervous system 781.0 and Tendonitis 726.90 [facility] [address] [facility] [id number] [address] [place] [address] Jan, Sinusitis 473.9 [facility] [address] [id number] [address] [place] [address] December, [facility] [address] [id number] [address] [place] [id number] December, [facility] [address] [facility] [id number] [address] [place] [address] December, [facility] [address] [facility] [id number] [address] [place] [phone] December, [facility] [address] [facility] [id number] [address] [place] [address] December, [facility] [address] [facility] [id number] [address] [place] [phone] Nov, [facility] [address] [id number] [address] [place] [phone] Nov, [facility] [address] [facility] [id number] [address] [place] [id number] Sep, [facility] [address] [facility] [id number] [address] [place] [phone] Sep, [facility] [address] [id number] [address] [place] [address], [place] [address] Sep, [facility] [address] [id number] [address] [place] [address], [place] [address] Sep, [facility] [address] [id number] [address] [place] [address], [place] [address] Jul, [facility] [address] [id number] [address] [place] [address], [place] [address] Jul, [facility] [address] [id number] [address] [place] [address], [place] [address] Jul, [facility] [address] [id number] [address] [place] [address], [place] [address] Jul, [facility] [address] [id number] [address] [place] [address], [place] [address] Jul, [facility] [address] [id number] [address] [place] [address], [place] [address] Jul, [facility] [address] [id number] [address] [place] [address], [place] [address] Jul, [facility] [address] [id number] [address] [place] [address], [place] [address] Jul, [facility] [address] [id number] [address] [place] [address], [place] [address] Jul, [facility] [address] [id number] [address] [place] [address], [place] [address] Jul, [facility] [address] [id number] [address] [place] [address], [place] [address] Jun, [facility] [address] [id number] [address] [place] [address], [place] [address] Jun, [facility] [address] [id number] [address] [place] [address], [place] [address] Jun, [facility] [address] [id number] [address] [place] [address], [place] [address] Jun, [facility] [address] [id number] [address] [place] [address], [place] [address] May, [facility] [address] [id number] [address] [place] [address], [place] [address] 28 May, 2014 [facility] [address] [id number] [address] [place] [address], [place] [address] 14 May, 2014 [facility] [address] [id number] [address] [place] [address], [place] [address] 14 May, 2014 [facility] [address] [id number] [address] [place] [address], [place] [address] 17 Apr, 2014 [facility] [address] [id number] [address] [place] [address], [place] [address] 17 Apr, 2014 [facility] [address] [id number] [address] [place] [address], [place] [address] 17 Apr, 2014 [facility] [address] [id number] [address] [place] [address], [place] [address] 17 Apr, 2014 [facility] [address] [id number] [address] [place] [address], [place] [address] 16 Apr, 2014 [facility] [address] [id number] [address] [place] [address], [place] [address] 16 Apr, 2014 [facility] [address] [id number] [address] [place] [address], [place] [address] 03 Apr, 2014 [facility] [address] [id number] [address] [place] [address], [place] [address] Apr, [facility] [address] [id number] [address] [place] [address], [place] [address] Mar, [facility] [address] [id number] [address] [place] [address], [place] [address] Mar, [facility] [address] [id number] [address] [place] [address], [place] [address] Feb, [facility] [address] [id number] [facility] [place] [address] Feb, [facility] [address] [id number] [facility] [place] [address] Feb, [facility] [address] [id number] [address] [place] [address], [place] [address] Feb, [facility] [address] [id number] [address] [place] [address], [place] [address] Jan, [facility] [address] [id number] [address] [place] [address], [place] [address] Jan, [facility] [address] [id number] [address] [place] [address], [place] [address] Jan, [facility] [address] [id number] [address] [place] [address], [place] [address] Jan, [facility] [address] [id number] [address] [place] [address], [place] [address] Jan, [facility] [address] [id number] [address] [place] [address], [place] [address] Jan, [facility] [address] [id number] [address] [place] [address], [place] [address] December, [facility] [address] [id number] [address] [place] [address], [place] [address] December, [facility] [address] [id number] [address] [place] [address], [place] [address] December, [facility] [address] [id number] [address] [place] [address], [place] [address] December, [facility] [address] [id number] [address] [place] [address], [place] [address] December, [facility] [address] [id number] [address] [place] [address], [place] [address] Nov, [facility] [address] [id number] [address] [place] [address], [place] [address] Nov, [facility] [address] [id number] [address] [place] [address], [place] [address] Nov, [facility] [address] [id number] [address] [place] [address], [place] [address] Nov, [facility] [address] [id number] [address] [place] [address], [place] [address] Nov, [facility] [address] [id number] [address] [place] [address], [place] [address] Nov, [facility] [address] [id number] [address] [place] [address], [place] [address] Oct, [facility] [address] [id number] [address] [place] [address], [place] [address] Oct, [facility] [address] [id number] [address] [place] [address], [place] [address] Oct, [facility] [address] [id number] [address] [place] [address], [place] [address] Oct, [facility] [address] [id number] [address] [place] [address], [place] [address] Sep, [facility] [address] [id number] [address] [place] [address], [place] [address] Sep, [facility] [address] [id number] [address] [place] [address], [place] [address] Sep, [facility] [address] [id number] [address] [place] [address], [place] [address] Sep, [facility] [address] [id number] [address] [place] [address], [place] [address] Sep, [facility] [address] [id number] [address] [place] [address], [place] [address] Sep, [facility] [address] [id number] [address] [place] [address], [place] [address] Sep, [facility] [address] [id number] [address] [place] [address], [place] [address] Sep, [facility] [address] [id number] [address] [place] [address], [place] [address] Sep, [facility] [address] [id number] [address] [place] [address], [place] [address] Sep, [facility] [address] [id number] [address] [place] [address], [place] [address] Sep, [facility] [address] [id number] [address] [place] [address], [place] [address] Sep, [facility] [address] [id number] [address] [place] [address], [place] [address] Sep, [facility] [address] [id number] [address] [place] [address], [place] [address] Aug, [facility] [address] [id number] [address] [place] [address], [place] [address] Aug, [facility] [address] [id number] [address] [place] [address], [place] [address] Jul, [facility] [address] [id number] [address] [place] [address], [place] [address] Jul, [facility] [address] [id number] [address] [place] [address], [place] [address] Jun, [facility] [address] [id number] [address] [place] [address], [place] [address] Jun, [facility] [address] [id number] [address] [place] [address], [place] [address] May, [facility] [address] [id number] [address] [place] [address], [place] [address] Apr, [facility] [address] [id number] [address] [place] [address], [place] [address] Mar, [facility] [address] [id number] [address] [place] [address], [place] [address] Jan, [facility] [address] [id number] [address] [place] [address], [place] [address] December, [facility] [address] [id number] [address] [place] [address], [place] [address] December, [facility] [address] [id number] [address] [place] [address], [place] [address] Oct, [facility] [address] [id number] [address] [place] [address], [place] [address] Oct, [facility] [address] [id number] [address] [place] [address], [place] [address] Sep, [facility] [address] [id number] [address] [place] [address], [place] [address] Aug, [facility] [address] [id number] [address] [place] [address], [place] [address] Aug, [facility] [address] [id number] [address] [place] [address], [place] [address] Jul, [facility] [address] [id number] [address] [place] [address], [place] [address] Jul, [facility] [address] [id number] [address] [place] [address], [place] [address] Mar, [facility] [address] [id number] 06 [place] [address], [place] [address] Mar, [facility] [address] [id number] [address] [place] [address], [place] [address] Feb, [facility] [address] [id number] [address] [place] [address], [place] [address] Feb, [facility] [address] [id number] [address] [place] [address], [place] [address] Feb, [facility] [address] [id number] [address] [place] [address], [place] [address] Jan, [facility] [address] [id number] [address] [place] [address], [place] [address] 26 Nov, 2011 [facility] [address] [id number] [address] [place] [address], [place] [address] 17 Sep, 2011 [facility] [address] [id number] [address] [place] [address], [place] [address] 15 Sep, 2011 [facility] [address] [id number] [address] [place] [address], [place] [address] 10 Sep, 2011 [facility] [address] [id number] [address] [place] [address], [place] [address] Aug, [facility] [address] [id number] [address] [place] [address], [place] [address] Aug, [facility] [address] [id number] [address] [place] [address], [place] [address] Aug, [facility] [address] [id number] [address] [place] [address], [place] [address] Jun, [facility] [address] [id number] [address] [place] [address], [place] [address] Jun, [facility] [address] [id number] [address] [place] [address], [place] [address] Jun, [facility] [address] [id number] [address] [place] [address], [place] [address] Jun, [facility] [address] [id number] [address] [place] [address], [place] [address] 25 May, 2011 [facility] [address] [id number] [address] [place] [address], [place] [address] 18 May, 2011 [facility] [address] [id number] [address] [place] [address], [place] [address] 18 May, 2011 [facility] [address] [id number] [address] [place] [address], [place] [address] 14 May, 2011 [facility] [address] [id number] [address] [place] [address], [place] [address] Jun, [facility] [address] [facility] [id number] [address] [place] [id number] December, [facility] [address] [facility] [id number] [address] [place] [id number] May, IMMUNIZATIONS No Known Immunizations SOCIAL HISTORY [...]
--- OUTSIDE RECORDS SUMMARY | 2020-03-17 19:09 | XMS REPORT ---
Author Author Ann Whitley Doctor Organization [facility] Address Unknown Phone Unavailable Care Team Providers Care Digital Media Designer Name Role Phone Migration, Doctor Unavailable Unavailable PROBLEMS Type Condition ICD9-CM Code SSN90-KA Code Onset Dates Condition S tatus SNOMED Code Problem Perimenopausal N95.1 Active 30973 [id number] Problem Seasonal allergic rhinitis, unspecified allergic rhinitis trigger J30.2 Active 680410048 Problem Chronic migraine G43.709 Active 377 04487 Problem Anxiety F41.9 Active 76450448 Problem Vitamin D deficiency E55.9 Active 85049062 Problem Essential hypertension I10 Active 21265909 Problem Iron deficiency anemia, unspecified iron deficiency an emia type D50.9 Active 77979390 Problem Carpal tunnel syndrome, bilateral G56.03 Active [id number] Problem Daytime hypersomnia G47.19 Active [id number] Problem Nocturnal dyspnea R06.00 Active 24 [id number] ALLERGIES No Information ENCOUNTERS Encounter Location Date Diagnosis [facility] [address] [facility] [id number] [address] [place] [address] 13 Dec, 2019 Strain of lumbar region, ini tial encounter S39.012A [facility] [address] [place] [id number] [address] [place] [address] 11 Apr, 2018 Chronic migraine G43.709 ; E ssential hypertension I10 ; Iron deficiency anemia, unspecified iron deficiency anemia type D50.9 and Long-term use of high-risk medication Z79.899 [facility] [address] [facility] [id number] [address] [place] [address] 18 Feb, 2018 Seasonal allergic rhinitis, unspecified allergic rhinitis trigger J30.2 and Chronic migraine G43.709 [facility] [address] [facility] [id number] [address] [place] [address] 17 Feb, 2018 Anxiety F41.9 [facility] [address] [address] Feb, Exposure to pertussis Z20.81 [address] [place] [address] [address] Jan, [place] [address] [address] Jan, Chronic migraine G43.709 and Anxiety F41.9 [place] [address] [address] December, Anxiety F41.9 [place] [address] [address] Nov, Chronic migraine G43.709 ; S easonal allergic rhinitis, unspecified allergic rhinitis trigger J30.2 ; Vitamin D deficiency E55.9 ; Nocturnal dyspnea R06.00 ; Daytime hypersomnia G47.19 and Anxiety F41.9 [place] [address] [address] Nov, Chronic migraine G43.709 [place] [address] [address] Oct, [place] [address] [address] Sep, Carpal tunnel syndrome, bila teral G56.03 [place] [address] [address] Sep, Chronic migraine G43.709 [place] [address] [place] [id number] [address] [place] [address] Aug, [place] [address] [address] Jul, Seasonal allergic rhinitis, unspecified allergic rhinitis trigger J30.2 [place] [address] [place] [id number] [address] [place] [address] Jul, Seasonal allergic rhinitis, unspecified allergic rhinitis trigger J30.2 [facility] [address] [facility] [id number] [address] [place] [address] Jul, Chronic migraine G43.709 [facility] [address] [facility] [id number] [address] [place] [address] Jun, [facility] [address] [id number] [address] [place] [id number] May, Dental caries K02.9 [facility] [address] [facility] [id number] [address] [place] [address] May, Chronic migraine G43.709 [place] [address] [facility] [id number] [address] [place] [address] Apr, Chronic migraine G43.709 ; I yvette deficiency anemia, unspecified iron deficiency anemia type D50.9 ; Perimenopausal N95.1 and Vitamin D deficiency E55.9 [place] [address] [facility] [id number] [address] [place] [address] Mar, [place] [address] [facility] [id number] [address] [place] [address] Mar, Seasonal allergic rhinitis, unspecified allergic rhinitis trigger J30.2 [facility] [address] [facility] [id number] [address] [place] [address] Mar, Chronic migraine G43.709 [place] [address] [facility] [id number] [address] [place] [address] Mar, [place] [address] [facility] [id number] [address] [place] [address] Mar, Chronic migraine G43.709 ; I rregular menses N92.6 ; Iron deficiency anemia, unspecified iron deficiency anemia type D50.9 and General medical exam Z00.00 [facility] [address] [facility] [id number] [address] [place] [address] Mar, Chronic migraine G43.709 ; I yvette deficiency anemia, unspecified iron deficiency anemia type D50.9 ; Irregular menses N92.6 and General medical exam Z00.00 [facility] [address] [id number] [address] [place] [address] [id number] Feb, Dental examination Z01.20 [facility] [address] [id number] [address] [place] [address] Feb, Chronic tension-type headach e, 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 and Seasonal allergic rhinitis, unspecified allergic rhinitis trigger J30.2 [facility] [address] [id number] [address] [place] [address] Feb, [facility] [address] [id number] [address] [place] [address] Jan, Seasonal allergic rhinitis, unspecified allergic rhinitis trigger J30.2 [facility] [address] [id number] [address] [place] [address] December, Chronic tension-type headach e, 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 [facility] [address] [id number] [address] [place] [id number] December, Dental examination Z01.20 [facility] [address] [id number] [address] [place] [address] December, [facility] [address] [id number] [address] [place] [address] Oct, [facility] [address] [id number] [address] [place] [address] Oct, [facility] [address] [id number] [address] [place] [address] Oct, Sore throat J02.9 and Season al allergic rhinitis, unspecified allergic rhinitis trigger J30.2 [facility] [address] [id number] [address] [place] [address] Oct, [facility] [address] [facility] [id number] [address] [place] [address] Sep, [facility] [address] [id number] [address] [place] [address] Aug, Menstrual periods irregular N92.6 ; Chronic tension-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, 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 ; Acute upper respiratory infection, unspecified J06.9 and Other viral agents as the cause of diseases classified elsewhere B97.89 [facility] [address] [id number] [address] [place] [address] Jul, [facility] [address] [id number] [address] [place] [address] Jul, [facility] [address] [facility] [id number] [address] [place] [address] Jul, Migraine without aura and wi thout status migrainosus, not intractable G43.009 [facility] [address] [facility] [id number] [address] [place] [address] Jun, [facility] [address] [facility] [id number] [address] [place] [address] May, Migraine without aura and wi thout status migrainosus, not intractable G43.009 [facility] [address] [facility] [id number] [address] [place] [address] May, [facility] [address] [facility] [id number] [address] [place] [address] May, [facility] [address] [id number] [address] [place] [id number] Mar, Dental examination Z01.20 [facility] [address] [facility] [id number] [address] [place] [address] Mar, [facility] [address] [facility] [id number] [address] [place] [address] Jan, Onychomycosis B35.1 [facility] [address] [facility] [id number] [address] [place] [address] Jan, [facility] [address] [facility] [id number] [address] [place] [address] December, Dental caries K02.9 [facility] [address] [id number] [address] [place] [address] Nov, Dental examination Z01.20 [facility] [address] [id number] [address] [place] [address] Oct, Dental examination Z01.20 [facility] [address] [id number] [address] [place] [address] Oct, [facility] [address] [id number] [address] [place] [address] Oct, Migraine G43.909 [facility] [address] [facility] [id number] [address] [place] [address] Sep, Onychomycosis B35.1 [facility] [address] [place] [id number] [address] [place] [address] Sep, [facility] [address] [facility] [id number] [address] [place] [address] Aug, [facility] [address] [facility] [id number] [address] [place] [address] Jul, [facility] [address] [place] [id number] [address] [place] [address] Apr, [facility] [address] [place] [id number] [address] [place] [address] Apr, Right anterior knee pain 719 .46 [facility] [address] [place] [id number] [address] [place] [address] Mar, Tendonitis 726.90 ; HTN (hyp ertension) 401.9 ; Tremors of nervous system 781.0 and Anxiety 300.00 [facility] [address] [place] [id number] [address] [place] [address] Mar, Thrush 112.0 [facility] [address] [place] [id number] [address] [place] [address] Feb, [facility] [address] [id number] [address] [place] [address] 08 Feb, 2015 Tremors of nervous system 78 1.0 and Carpal tunnel syndrome 354.0 [facility] [address] [id number] [address] [place] [address] Jan, Anxiety 300.00 ; Tremors of nervous system 781.0 and Tendonitis 726.90 [facility] [address] [id number] [address] [place] [address] Jan, Anxiety 300.00 ; Tremors of nervous system 781.0 and Tendonitis 726.90 [facility] [address] [id number] [address] [place] [address] Jan, Sinusitis 473.9 [facility] [address] [id number] [address] [place] [address] December, [facility] [address] [id number] [address] [place] [address] December, [facility] [address] [id number] [address] [place] [address] December, [facility] [address] [facility] [id number] [address] [place] [address] December, [facility] [address] [facility] [id number] [address] [place] [address] December, [facility] [address] [facility] [id number] [address] [place] [address] Nov, [facility] [address] [id number] [address] [place] [phone] Nov, [facility] [address] [id number] [address] [place] [address] Sep, [facility] [address] [id number] [address] [place] [address] Sep, [facility] [address] [id number] [address] [place] [address] Sep, [facility] [address] [id number] [address] [place] [address], [place] [address] Sep, [facility] [address] [id number] [address] [place] [address], [place] [address] Jul, [facility] [address] [id number] [address] [place] [address], [place] [address] Jul, [facility] [address] [id number] [address] [place] [address], [place] [address] Jul, [facility] [address] [id number] [address] [place] [address], [place] [address] Jul, [facility] [address] [id number] [address] [place] [address], [place] [address] Jul, [facility] [address] [id number] [address] [place] [address], [place] [address] Jul, [facility] [address] [id number] [address] [place] [address], [place] [address] Jul, [facility] [address] [id number] [address] [place] [address], [place] [address] Jul, [facility] [address] [id number] [address] [place] [address], [place] [address] Jul, [facility] [address] [id number] [address] [place] [address], [place] [address] Jul, [facility] [address] [id number] [address] [place] [address], [place] [address] Jun, [facility] [address] [id number] [address] [place] [address], [place] [address] Jun, [facility] [address] [id number] [address] [place] [address], [place] [address] Jun, [facility] [address] [id number] [address] [place] [address], [place] [address] Jun, [facility] [address] [id number] [address] [place] [address], [place] [address] 28 May, 2014 [facility] [address] [id number] [address] [place] [address], [place] [address] 28 May, 2014 [facility] [address] [id number] [address] [place] [address], [place] [address] 14 May, 2014 [facility] [address] [id number] [address] [place] [address], [place] [address] 14 May, 2014 [facility] [address] [id number] [address] [place] [address], [place] [address] 17 Apr, 2013 [facility] [address] [id number] [address] [place] [address], [place] [address] 17 Apr, 2014 [facility] [address] [id number] [address] [place] [address], [place] [address] 17 Apr, 2013 [facility] [address] [id number] [address] [place] [address], [place] [address] 17 Apr, 2013 [facility] [address] [id number] [address] [place] [address], [place] [address] 16 Apr, 2013 [facility] [address] [id number] [address] [place] [address], [place] [address] 16 Apr, 2013 [facility] [address] [id number] [address] [place] [address], [place] [address] 03 Apr, 2014 [facility] [address] [id number] [address] [place] [address], [place] [address] Apr, [facility] [address] [id number] [address] [place] [address], [place] [address] Mar, [facility] [address] [id number] [address] [place] [address], [place] [address] Mar, [facility] [address] [id number] [address] [place] [address], [place] [address] Feb, [facility] [address] [id number] [address] [place] [address], [place] [address] Feb, [facility] [address] [id number] [address] [place] [address], [place] [address] Feb, [facility] [address] [id number] [address] [place] [address], [place] [address] Feb, [facility] [address] [id number] [address] [place] [address], [place] [address] Jan, [facility] [address] [id number] [address] [place] [address], [place] [address] Jan, [facility] [address] [id number] [address] [place] [address], [place] [address] Jan, [facility] [address] [id number] [address] [place] [address], [place] [address] Jan, [facility] [address] [id number] [address] [place] [address], [place] [address] Jan, [facility] [address] [id number] [address] [place] [address], [place] [address] Jan, [facility] [address] [id number] [address] [place] [address], [place] [address] December, [facility] [address] [id number] [address] [place] [address], [place] [address] December, [facility] [address] [id number] [address] [place] [address], [place] [address] December, [facility] [address] [id number] [address] [place] [address], [place] [address] December, [facility] [address] [id number] [address] [place] [address], [place] [address] December, [facility] [address] [id number] [address] [place] [address], [place] [address] Nov, [facility] [address] [id number] [address] [place] [address], [place] [address] Nov, [facility] [address] [id number] [address] [place] [address], [place] [address] Nov, [facility] [address] [id number] [address] [place] [address], [place] [address] Nov, [facility] [address] [id number] [address] [place] [address], [place] [address] Nov, [facility] [address] [id number] [address] [place] [address], [place] [address] Nov, [facility] [address] [id number] [address] [place] [address], [place] [address] Oct, [facility] [address] [id number] [address] [place] [address], [place] [address] Oct, [facility] [address] [id number] [address] [place] [address], [place] [address] Oct, [facility] [address] [id number] [address] [place] [address], [place] [address] Oct, [facility] [address] [id number] [address] [place] [address], [place] [address] 14 Sep, 2013 [facility] [address] [id number] [address] [place] [address], [place] [address] 14 Sep, 2013 [facility] [address] [id number] [address] [place] [address], [place] [address] 10 Sep, 2013 [facility] [address] [id number] [address] [place] [address], [place] [address] 10 Sep, 2013 [facility] [address] [id number] [address] [place] [address], [place] [address] 07 Sep, 2013 [facility] [address] [id number] [address] [place] [address], [place] [address] 06 Sep, 2013 [facility] [address] [id number] [address] [place] [address], [place] [address] 06 Sep, 2013 [facility] [address] [id number] [address] [place] [address], [place] [address] Sep, [facility] [address] [id number] [address] [place] [address], [place] [address] Sep, [facility] [address] [id number] [address] [place] [address], [place] [address] Sep, [facility] [address] [id number] [address] [place] [address], [place] [address] Sep, [facility] [address] [id number] [address] [place] [address], [place] [address] Sep, [facility] [address] [id number] [address] [place] [address], [place] [address] Sep, [facility] [address] [id number] [address] [place] [address], [place] [address] Aug, [facility] [address] [id number] [address] [place] [address], [place] [address] Aug, [facility] [address] [id number] [address] [place] [address], [place] [address] Jul, [facility] [address] [id number] [address] [place] [address], [place] [address] Jul, [facility] [address] [id number] [address] [place] [address], [place] [address] Jun, [facility] [address] [id number] [address] [place] [address], [place] [address] Jun, [facility] [address] [id number] [address] [place] [address] May, [facility] [address] [id number] [address] [place] [address], [place] [address] Apr, [facility] [address] [id number] [address] [place] [address], [place] [address] Mar, [facility] [address] [id number] [address] [place] [address], [place] [address] Jan, [facility] [address] [id number] [address] [place] [address], [place] [address] December, [facility] [address] [id number] [address] [place] [address], [place] [address] December, [facility] [address] [id number] [address] [place] [address], [place] [address] Oct, [facility] [address] [id number] [address] [place] [address], [place] [address] Oct, [facility] [address] [id number] [address] [place] [address], [place] [address] Sep, [facility] [address] [id number] [address] [place] [address], [place] [address] Aug, [facility] [address] [id number] [address] [place] [address], [place] [address] Aug, [facility] [address] [id number] [address] [place] [address], [place] [address] Jul, [facility] [address] [id number] [address] [place] [address], [place] [address] Jul, [facility] [address] [id number] [address] [place] [address], [place] [address] Mar, [facility] [address] [id number] [address] [place] [address], [place] [address] Mar, [facility] [address] [id number] [address] [place] [address], [place] [address] Feb, [facility] [address] [id number] [address] [place] [address], [place] [address] Feb, [facility] [address] [id number] [address] [place] [address], [place] [address] Feb, [facility] [address] [id number] [address] [place] [address], [place] [address] Jan, [facility] [address] [id number] [address] [place] [address], [place] [address] Nov, [facility] [address] [id number] [address] [place] [address], [place] [address] 17 Sep, 2011 [facility] [address] [id number] [address] [place] [address], [place] [address] 15 Sep, 2011 [facility] [address] [id number] [address] [place] [address], [place] [address] Sep, [facility] [address] [id number] [address] [place] [address], [place] [address] Aug, [facility] [address] [id number] [address] [place] [address], [place] [address] Aug, [facility] [address] [id number] [address] [place] [address], [place] [address] Aug, [facility] [facility] [address] [id number] [address] [place] [address], [place] [address] Jun, [facility] [address] [id number] [address] [place] [address] Jun, [facility] [address] [id number] [address] [place] [address], [place] [address] Jun, [facility] [address] [id number] [address] [place] [address] Jun, [facility] [address] [id number] [address] [place] [address] May, [facility] [address] [id number] [address] [place] [address] May, [facility] [address] [id number] [address] [place] [address], [place] [address] 18 May, 2011 [facility] [address] [id number] [address] [place] [address] 14 May, 2011 [facility] [address] [id number] [address] [place] [address] Jun, [facility] [address] [id number] [address] [place] [address] December, [facility] [address] [facility] [id number] [address] [place] [address] May, IMMUNIZATIONS No Known Immunizations SOCIAL HISTORY [...]
--- OUTSIDE RECORDS SUMMARY | 2020-03-17 19:10 | XMS REPORT ---
Author Author Ann Tao Organization 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 Name Role Phone MANUEL Tao Unavailable PROBLEMS Type Condition ICD9-CM Code [id number] Code Onset Dates Condition S tatus SNOMED Code Problem Perimenopausal N95.1 Active 40682 [id number] Problem Seasonal allergic rhinitis, unspecified allergic rhinitis trigger J30.2 Active 701924834 Problem Chronic migraine G43.709 Active 377 66220 Problem Anxiety F41.9 Active 08749554 Problem Vitamin D deficiency E55.9 Active 46304148 Problem Essential hypertension I10 Active 17986591 Problem Iron deficiency anemia, unspecified iron deficiency an emia type D50.9 Active 83710245 Problem Carpal tunnel syndrome, bilateral G56.03 Active [id number] Problem Daytime hypersomnia G47.19 Active [id number] Problem Nocturnal dyspnea R06.00 Active 24 0561380 ALLERGIES No Information ENCOUNTERS Encounter Location Date Diagnosis [address] [address] Apr, Chronic migraine G43.709 ; Essential hyp ertension I10 ; Iron deficiency anemia, unspecified iron deficiency anemia type D50.9 and Long-term use of high-risk medication Z79.[address] [address] Feb, Seasonal allergic rhinitis, unspecified allergic rhinitis trigger J30.2 and Chronic migraine G43.[address] [address] Feb, Anxiety F41.[address] [address] Feb, Exposure to pertussis Z20.818 [place] [address] [address] Jan, [place] [address] [address] Jan, Chronic migraine G43.709 and Anxiety F41 .9 [place] [address] [address] December, Anxiety F41.9 [place] [address] [address] Nov, Chronic migraine G43.709 ; Seasonal ivon rgic rhinitis, unspecified allergic rhinitis trigger J30.2 ; Vitamin D deficiency E55.9 ; Nocturnal dyspnea R06.00 ; Daytime hypersomnia G47.19 and Anxiety F41.9 [place] [address] [address] Nov, Chronic migraine G43.709 [place] [address] [address] Oct, [place] [address] [address] Sep, Carpal tunnel syndrome, bilateral G56.03 [place] [address] [address] Sep, Chronic migraine G43.709 [place] [address] [address] Aug, [place] [address] [address] Jul, Seasonal allergic rhinitis, unspecified allergic rhinitis trigger J30.2 [place] [address] [address] Jul, Seasonal allergic rhinitis, unspecified allergic rhinitis trigger J30.2 [place] [address] [address] Jul, Chronic migraine G43.709 [place] [address] [address] Jun, [facility] [address] [id number] May, Dental caries K02.9 [place] [address] [address] May, Chronic migraine G43.709 [place] [address] [address] Apr, Chronic migraine G43.709 ; Iron deficien cy anemia, unspecified iron deficiency anemia type D50.9 ; Perimenopausal N95.1 and Vitamin D deficiency E55.9 [place] [address] [address] Mar, [place] [address] [address] Mar, Seasonal allergic rhinitis, unspecified allergic rhinitis trigger J30.2 [place] [address] [address] Mar, Chronic migraine G43.709 [place] [address] [address] Mar, [place] [address] [address] Mar, Chronic migraine G43.709 ; Irregular men ses N92.6 ; Iron deficiency anemia, unspecified iron deficiency anemia type D50.9 and General medical exam Z00.00 [place] [address] [address] Mar, Chronic migraine G43.709 ; Iron deficien cy anemia, unspecified iron deficiency anemia type D50.9 ; Irregular menses N92.6 and General medical exam Z00.00 [facility] [address] [id number] Feb, Dental examination Z01.20 [place] [address] [address] Feb, Chronic tension-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, intractab le G44.221 and Seasonal allergic rhinitis, unspecified allergic rhinitis trigger J30.2 [facility] [address] [address] Feb, [facility] [address] [address] Jan, Seasonal allergic rhinitis, unspecified allergic rhinitis trigger J30.2 [place] [address] [address] December, Chronic tension-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, intractab le G44.221 [facility] [address] [place] [id number] [place] [id number] December, Dental examination Z01.20 [place] [address] [address] December, [place] [address] [address] Oct, [place] [address] [address] Oct, [facility] [address] [facility] [id number] [address] [place] [address] Oct, Sore throat J02.9 and Season al allergic rhinitis, unspecified allergic rhinitis trigger J30.2 [place] [address] [address] Oct, [place] [address] [address] Sep, [place] [address] [address] Aug, Menstrual periods irregular N92.6 ; Environmental Health Officer danielle tension-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, 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 ; Acute upper respiratory infection, unspecified J06.9 and Other viral agents as the cause of diseases classified elsewhere B97.89 [place] [address] [address] Jul, [facility] [address] [place] [id number] [place] [address] Jul, [facility] [address] [address] Jul, Migraine without aura and without status migrainosus, not intractable G43.009 [facility] [address] [address] Jun, [facility] [address] [address] May, Migraine without aura and without status migrainosus, not intractable G43.009 [facility] [address] [address] May, [facility] [address] [address] May, [facility] [address] [place] [id number] [place] [id number] Mar, Dental examination Z01.20 [facility] [address] [address] Mar, [facility] [address] [address] Jan, Onychomycosis B35.1 [facility] [address] [address] Jan, [facility] [address] [address] December, Dental caries K02.9 [facility] [address] [address] Nov, Dental examination Z01.20 [facility] [address] [address] Oct, Dental examination Z01.20 [facility] [address] [address] Oct, [facility] [address] [address] Oct, Migraine G43.909 [facility] [address] [address] Sep, Onychomycosis B35.1 [facility] [address] [address] Sep, [facility] [address] [address] Aug, [facility] [address] [address] Jul, [place] [address] [address] Apr, [place] [address] [address] Apr, Right anterior knee pain 719.[address] [address] Mar, Tendonitis 726.90 ; HTN (hypertension) 4 01.9 ; Tremors of nervous system 781.0 and Anxiety 300.[address] [address] Mar, Thrush 112.0 [place] [address] [address] Feb, [place] [address] [address] Feb, Tremors of nervous system 781.0 and Carp al tunnel syndrome 354.0 [facility] [address] [address] Jan, Anxiety 300.00 ; Tremors of nervous syst em 781.0 and Tendonitis 726.90 [place] [address] [address] Jan, Anxiety 300.00 ; Tremors of nervous syst em 781.0 and Tendonitis 726.90 [place] [address] [place] [id number] [place] [address] Jan, Sinusitis 473.9 [facility] [address] [place] [id number] [place] [address] December, [facility] [address] [place] [id number] [place] [address] December, [facility] [address] [place] [id number] [place] [address] December, [facility] [address] [place] [id number] [place] [address] December, [facility] [address] [place] [id number] [place] [address] December, [facility] [address] [place] [id number] [place] [address] Nov, [facility] [address] [place] [id number] [place] [address] Nov, [facility] [address] [place] [id number] [place] [address] Sep, [facility] [address] [place] [id number] [place] [address] Sep, [facility] [address] [place] [id number] [place] [address] Sep, [facility] [address] [place] [id number] [place] [address] Sep, [facility] [address] [place] [id number] [place] [address] Jul, [facility] [address] [place] [id number] [place] [address] Jul, [facility] [address] [place] [id number] [place] [address] Jul, [facility] [address] [place] [place] [id number] [place] [address] Jul, [facility] [address] [place] [id number] [place] [address] Jul, [facility] [address] [facility] [id number] [place] [address] Jul, [facility] [address] [facility] [id number] [place] [address] Jul, [facility] [address] [id number] [place] [address] Jul, [facility] [address] [id number] [place] [address] Jul, [facility] [address] [id number] [place] [address] Jul, [facility] [address] [id number] [place] [address] Jun, [facility] [address] [id number] [place] [address] Jun, [facility] [address] [id number] [place] [address] Jun, [facility] [address] [id number] [place] [address] Jun, [facility] [address] [id number] [place] [address] May, [facility] [address] [id number] [place] [address] May, [facility] [address] [id number] [place] [address] May, [facility] [address] [id number] [place] [address] 14 May, 2014 [facility] [address] [id number] [place] [address] 17 Apr, 2014 [facility] [address] [id number] [place] [address] 17 Apr, 2014 [facility] [address] [id number] [place] [address] Apr, 2013 [facility] [address] [facility] [id number] [place] [address] 17 Apr, 2013 [facility] [address] [id number] [place] [address] 16 Apr, 2014 [facility] [address] [facility] [id number] [place] [address] Apr, [facility] [address] [id number] [place] [address] Apr, [facility] [address] [facility] [id number] [place] [address] Apr, [facility] [address] [id number] [place] [address] Mar, [facility] [address] [id number] [place] [address] Mar, [facility] [address] [id number] [place] [address] Feb, [facility] [address] [id number] [place] [address] Feb, [facility] [address] [id number] [place] [address] Feb, [facility] [address] [id number] [place] [address] Feb, [facility] [address] [id number] [place] [address] Jan, [facility] [address] [id number] [place] [address] Jan, [facility] [address] [id number] [place] [address] Jan, [facility] [address] [id number] [place] [address] Jan, [facility] [address] [id number] [place] [address] Jan, [facility] [address] [id number] [place] [address] Jan, [facility] [address] [id number] [place] [address] December, [facility] [address] [id number] [place] [address] December, [facility] [address] [id number] [place] [address] December, [facility] [address] [id number] [place] [address] December, [facility] [address] [id number] [place] [address] December, [facility] [address] [id number] [place] [address] Nov, [facility] [address] [id number] [place] [address] Nov, [facility] [address] [id number] [place] [address] Nov, [facility] [address] [id number] [place] [address] Nov, [facility] [address] [id number] [place] [address] Nov, [facility] [address] [id number] [place] [address] Nov, [facility] [address] [id number] [place] [address] Oct, [facility] [address] [id number] [place] [address] Oct, [facility] [address] [id number] [place] [address] Oct, [facility] [address] [id number] [place] [address] Oct, [facility] [address] [id number] [place] [address] Sep, [facility] [address] [id number] [place] [address] 14 Sep, 2013 [facility] [address] [id number] [place] [address] Sep, [facility] [address] [id number] [place] [address] Sep, [facility] [address] [id number] [place] [address] Sep, [facility] [address] [id number] [place] [address] Sep, [facility] [address] [id number] [place] [address] Sep, [facility] [address] [id number] [place] [address] Sep, [facility] [address] [id number] [place] [address] Sep, [facility] [address] [id number] [place] [address] Sep, [facility] [address] [id number] [place] [address] Sep, [facility] [address] [id number] [place] [address] Sep, [facility] [address] [id number] [place] [address] Sep, [facility] [address] [id number] [place] [address] Aug, [facility] [address] [id number] [place] [address] Aug, [facility] [address] [id number] [place] [address] Jul, [facility] [address] [id number] [place] [address] Jul, [facility] [address] [id number] [place] [address] Jun, [facility] [address] [facility] [id number] [place] [address] Jun, [facility] [address] [id number] [place] [address] May, [facility] [address] [id number] [place] [address] Apr, [facility] [address] [id number] [place] [address] Mar, [facility] [address] [facility] [id number] [place] [address] Jan, [facility] [address] [id number] [place] [address] December, [facility] [address] [id number] [place] [address] December, [facility] [address] [id number] [place] [address] Oct, [facility] [address] [id number] [place] [address] Oct, [facility] [address] [id number] [place] [address] Sep, [facility] [address] [id number] [place] [address] Aug, [facility] [address] [id number] [place] [address] Aug, [facility] [address] [id number] [place] [address] Jul, [facility] [address] [id number] [place] [address] Jul, [facility] [address] [id number] [place] [address] Mar, [facility] [address] [id number] [place] [address] Mar, [facility] [address] [id number] [place] [address] Feb, [facility] [address] [id number] [place] [address] Feb, [facility] [address] [id number] [place] [address] Feb, [facility] [address] [id number] [place] [address] Jan, [facility] [address] [id number] [place] [address] Nov, [facility] [address] [id number] [place] [address] Sep, [facility] [id number] [place] [address] Sep, [facility] [id number] [place] [address] Sep, [facility] [id number] [place] [address] Aug, [facility] [address] [id number] [place] [address] Aug, [facility] [id number] [place] [address] Aug, [facility] [id number] [place] [address] Jun, [facility] [id number] [place] [address] Jun, [facility] [address] [id number] [place] [address] Jun, [facility] [address] [id number] [place] [address] Jun, [facility] [address] [id number] [place] [address] May, [facility] [address] [id number] [place] [address] May, [facility] [address] [id number] [place] [address] May, [facility] [id number] [place] [address] May, [facility] [id number] [place] [address] Jun, [facility] [id number] [place] [address] December, [facility] [id number] [place] [address] May, IMMUNIZATIONS No Known Immunizations SOCIAL HISTORY [...]
--- OUTSIDE RECORDS SUMMARY | 2020-03-17 19:10 | XMS REPORT ---
Author Author Ann Tao Organization [facility] Address [address] [place] [address] Care Team Providers Care Political Director Name Role Phone MANUEL Tao Unavailable PROBLEMS Type Condition ICD9-CM Code WHO80-OR Code Onset Dates Condition S tatus SNOMED Code Problem Perimenopausal N95.1 Active 04449 [id number] Problem Seasonal allergic rhinitis, unspecified allergic rhinitis trigger J30.2 Active 642635599 Problem Chronic migraine G43.709 Active 377 05098 Problem Anxiety F41.9 Active 09812867 Problem Vitamin D deficiency E55.9 Active 07513007 Problem Essential hypertension I10 Active 29373532 Problem Iron deficiency anemia, unspecified iron deficiency an emia type D50.9 Active 25794786 Problem Carpal tunnel syndrome, bilateral G56.03 Active [id number] Problem Daytime hypersomnia G47.19 Active [id number] Problem Nocturnal dyspnea R06.00 Active 24 0864420 ALLERGIES No Information ENCOUNTERS Encounter Location Date Diagnosis [address] [address] Apr, Chronic migraine G43.709 ; Essential hyp ertension I10 ; Iron deficiency anemia, unspecified iron deficiency anemia type D50.9 and Long-term use of high-risk medication Z79.[address] [address] Feb, Seasonal allergic rhinitis, unspecified allergic rhinitis trigger J30.2 and Chronic migraine G43.[address] [address] Feb, Anxiety F41.[address] [address] Feb, Exposure to pertussis Z20.818 [place] [address] [address] Jan, [place] [address] [address] Jan, Chronic migraine G43.709 and Anxiety F41 .9 [place] [address] [address] December, Anxiety F41.9 [place] [address] [address] Nov, Chronic migraine G43.709 ; Seasonal ivon rgic rhinitis, unspecified allergic rhinitis trigger J30.2 ; Vitamin D deficiency E55.9 ; Nocturnal dyspnea R06.00 ; Daytime hypersomnia G47.19 and Anxiety F41.9 [place] [address] [address] Nov, Chronic migraine G43.709 [place] [address] [address] Oct, [place] [address] [address] Sep, Carpal tunnel syndrome, bilateral G56.03 [place] [address] [address] Sep, Chronic migraine G43.709 [place] [address] [address] Aug, [place] [address] [address] Jul, Seasonal allergic rhinitis, unspecified allergic rhinitis trigger J30.2 [place] [address] [address] Jul, Seasonal allergic rhinitis, unspecified allergic rhinitis trigger J30.2 [place] [address] [address] Jul, Chronic migraine G43.709 [place] [address] [address] Jun, [facility] [address] [id number] May, Dental caries K02.9 [place] [address] [address] May, Chronic migraine G43.709 [place] [address] [address] Apr, Chronic migraine G43.709 ; Iron deficien cy anemia, unspecified iron deficiency anemia type D50.9 ; Perimenopausal N95.1 and Vitamin D deficiency E55.9 [place] [address] [address] Mar, [place] [address] [address] Mar, Seasonal allergic rhinitis, unspecified allergic rhinitis trigger J30.2 [place] [address] [address] Mar, Chronic migraine G43.709 [place] [address] [address] Mar, [place] [address] [address] Mar, Chronic migraine G43.709 ; Irregular men ses N92.6 ; Iron deficiency anemia, unspecified iron deficiency anemia type D50.9 and General medical exam Z00.00 [place] [address] [address] Mar, Chronic migraine G43.709 ; Iron deficien cy anemia, unspecified iron deficiency anemia type D50.9 ; Irregular menses N92.6 and General medical exam Z00.00 [facility] [address] [id number] Feb, Dental examination Z01.20 [place] [address] [address] Feb, Chronic tension-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, intractab le G44.221 and Seasonal allergic rhinitis, unspecified allergic rhinitis trigger J30.2 [facility] [address] [address] Feb, [facility] [address] [address] Jan, Seasonal allergic rhinitis, unspecified allergic rhinitis trigger J30.2 [place] [address] [address] December, Chronic tension-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, intractab le G44.221 [facility] [address] [place] [id number] [place] [id number] December, Dental examination Z01.20 [place] [address] [address] December, [place] [address] [address] Oct, [place] [address] [address] Oct, [facility] [address] [facility] [id number] [address] [place] [address] Oct, Sore throat J02.9 and Season al allergic rhinitis, unspecified allergic rhinitis trigger J30.2 [place] [address] [address] Oct, [place] [address] [address] Sep, [place] [address] [address] Aug, Menstrual periods irregular N92.6 ; [employer] danielle tension-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, 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 ; Acute upper respiratory infection, unspecified J06.9 and Other viral agents as the cause of diseases classified elsewhere B97.89 [place] [address] [address] Jul, [facility] [address] [place] [id number] [place] [address] Jul, [facility] [address] [address] Jul, Migraine without aura and without status migrainosus, not intractable G43.009 [facility] [address] [address] Jun, [facility] [address] [address] May, Migraine without aura and without status migrainosus, not intractable G43.009 [facility] [address] [address] May, [facility] [address] [address] May, [facility] [address] [place] [id number] [place] [id number] Mar, Dental examination Z01.20 [facility] [address] [address] Mar, [facility] [address] [address] Jan, Onychomycosis B35.1 [facility] [address] [address] Jan, [facility] [address] [address] December, Dental caries K02.9 [facility] [address] [address] Nov, Dental examination Z01.20 [facility] [address] [address] Oct, Dental examination Z01.20 [facility] [address] [address] Oct, [facility] [address] [address] Oct, Migraine G43.909 [facility] [address] [address] Sep, Onychomycosis B35.1 [facility] [address] [address] Sep, [facility] [address] [address] Aug, [facility] [address] [address] Jul, [place] [address] [address] Apr, [place] [address] [address] Apr, Right anterior knee pain 719.[address] [address] Mar, Tendonitis 726.90 ; HTN (hypertension) 4 01.9 ; Tremors of nervous system 781.0 and Anxiety [address] [address] Mar, Thrush 112.0 [place] [address] [address] Feb, [place] [address] [address] Feb, Tremors of nervous system 781.0 and Carp al tunnel syndrome 354.0 [facility] [address] [address] Jan, Anxiety 300.00 ; Tremors of nervous syst em 781.0 and Tendonitis 726.90 [place] [address] [address] Jan, Anxiety 300.00 ; Tremors of nervous syst em 781.0 and Tendonitis 726.90 [place] [address] [place] [id number] [place] [address] Jan, Sinusitis 473.9 [facility] [id number] [place] [address] December, [facility] [address] [id number] [place] [address] December, [facility] [address] [id number] [place] [address] December, [facility] [address] [address] [id number] [place] [address] December, [facility] [address] [place] [id number] [place] [address] December, [facility] [address] [place] [id number] [place] [address] Nov, [facility] [address] [place] [id number] [place] [address] Nov, [facility] [address] [place] [id number] [place] [address] Sep, [facility] [address] [place] [address] [id number] [place] [address] Sep, [facility] [address] [place] [id number] [place] [address] Sep, [facility] [address] [place] [id number] [place] [address] Sep, [facility] [address] [place] [address] [id number] [place] [address] Jul, [facility] [address] [place] [address] [id number] [place] [address] Jul, [facility] [address] [place] [id number] [place] [address] Jul, [facility] [address] [place] [id number] [place] [address] Jul, [facility] [address] [place] [id number] [place] [address] Jul, [facility] [address] [facility] [id number] [place] [address] Jul, [facility] [address] [facility] [id number] [place] [address] Jul, [facility] [address] [id number] [place] [address] Jul, [facility] [address] [id number] [place] [address] Jul, [facility] [address] [id number] [place] [address] Jul, [facility] [address] [id number] [place] [address] Jun, [facility] [address] [id number] [place] [address] Jun, [facility] [address] [id number] [place] [address] Jun, [facility] [address] [id number] [place] [address] Jun, [facility] [address] [id number] [place] [address] May, [facility] [address] [id number] [place] [address] May, [facility] [address] [id number] [place] [address] May, [facility] [address] [id number] [place] [address] 14 May, 2014 [facility] [address] [id number] [place] [address] 17 Apr, 2014 [facility] [address] [id number] [place] [address] 17 Apr, 2014 [facility] [address] [id number] [place] [address] Apr, 2013 [facility] [address] [facility] [id number] [place] [address] 17 Apr, 2013 [facility] [address] [id number] [place] [address] 16 Apr, 2014 [facility] [address] [facility] [id number] [place] [address] Apr, [facility] [address] [id number] [place] [address] Apr, [facility] [address] [facility] [id number] [place] [address] Apr, [facility] [address] [id number] [place] [address] Mar, [facility] [address] [id number] [place] [address] Mar, [facility] [address] [id number] [place] [address] Feb, [facility] [address] [id number] [place] [address] Feb, [facility] [address] [id number] [place] [address] Feb, [facility] [address] [id number] [place] [address] Feb, [facility] [address] [id number] [place] [address] Jan, [facility] [address] [id number] [place] [address] Jan, [facility] [address] [id number] [place] [address] Jan, [facility] [address] [id number] [place] [address] Jan, [facility] [address] [id number] [place] [address] Jan, [facility] [address] [id number] [place] [address] Jan, [facility] [address] [id number] [place] [address] December, [facility] [address] [id number] [place] [address] December, [facility] [address] [id number] [place] [address] December, [facility] [address] [id number] [place] [address] December, [facility] [address] [id number] [place] [address] December, [facility] [address] [id number] [place] [address] Nov, [facility] [address] [id number] [place] [address] Nov, [facility] [address] [id number] [place] [address] Nov, [facility] [address] [id number] [place] [address] Nov, [facility] [address] [id number] [place] [address] Nov, [facility] [address] [id number] [place] [address] Nov, [facility] [address] [id number] [place] [address] Oct, [facility] [address] [id number] [place] [address] Oct, [facility] [address] [id number] [place] [address] Oct, [facility] [address] [id number] [place] [address] Oct, [facility] [address] [id number] [place] [address] Sep, [facility] [address] [id number] [place] [address] 14 Sep, 2013 [facility] [address] [id number] [place] [address] Sep, [facility] [address] [id number] [place] [address] Sep, [facility] [address] [id number] [place] [address] Sep, [facility] [address] [id number] [place] [address] Sep, [facility] [address] [id number] [place] [address] Sep, [facility] [address] [id number] [place] [address] Sep, [facility] [address] [id number] [place] [address] Sep, [facility] [address] [id number] [place] [address] Sep, [facility] [address] [id number] [place] [address] Sep, [facility] [address] [id number] [place] [address] Sep, [facility] [address] [id number] [place] [address] Sep, [facility] [address] [id number] [place] [address] Aug, [facility] [address] [id number] [place] [address] Aug, [facility] [address] [id number] [place] [address] Jul, [facility] [address] [id number] [place] [address] Jul, [facility] [address] [id number] [place] [address] Jun, [facility] [address] [facility] [id number] [place] [address] Jun, [facility] [address] [id number] [place] [address] May, [facility] [address] [id number] [place] [address] Apr, [facility] [address] [id number] [place] [address] Mar, [facility] [address] [facility] [id number] [place] [address] Jan, [facility] [address] [id number] [place] [address] December, [facility] [address] [id number] [place] [address] December, [facility] [address] [id number] [place] [address] Oct, [facility] [address] [id number] [place] [address] Oct, [facility] [address] [id number] [place] [address] Sep, [facility] [address] [id number] [place] [address] Aug, [facility] [address] [id number] [place] [address] Aug, [facility] [address] [id number] [place] [address] Jul, [facility] [address] [id number] [place] [address] Jul, [facility] [address] [id number] [place] [address] Mar, [facility] [address] [id number] [place] [address] Mar, [facility] [address] [id number] [place] [address] Feb, [facility] [address] [id number] [place] [address] Feb, [facility] [address] [id number] [place] [address] Feb, [facility] [address] [id number] [place] [address] Jan, [facility] [address] [id number] [place] [address] Nov, [facility] [address] [id number] [place] [address] Sep, [facility] [id number] [place] [address] Sep, [facility] [id number] [place] [address] Sep, [facility] [id number] [place] [address] Aug, [facility] [address] [id number] [place] [address] Aug, [facility] [id number] [place] [address] Aug, [facility] [id number] [place] [address] Jun, [facility] [id number] [place] [address] Jun, [facility] [address] [id number] [place] [address] Jun, [facility] [id number] [place] [address] Jun, [facility] [address] [id number] [place] [address] May, [facility] [id number] [place] [address] May, [facility] [address] [id number] [place] [address] May, [facility] [address] [id number] [place] [address] May, [facility] [address] [id number] [place] [address] Jun, [facility] [address] [id number] [place] [address] December, [facility] [address] [id number] [place] [address] May, IMMUNIZATIONS No Known Immunizations SOCIAL HISTORY Never Assessed REASON FOR VISIT PLAN OF CARE VITAL SIGNS Height 64 in 2013-09-12 Weight 142 lbs 2013-09-12 Temperature 98 degrees Fahrenheit 2013-09-12 Heart Rate 80 bpm 2013-09-12 Respiratory Rate 16 2013-09-12 Blood pressure systolic 118 mmHg 2013-09-12 Blood pressure diastolic 68 mmHg 2013-09-12 MEDICATIONS No Known Medications RESULTS No Results PROCEDURES Procedure Date Ordered Result Body Site CULTURE, BACTERIA, OTHER Sep 12, 2013 INSTRUCTIONS MEDICATIONS ADMINISTERED No Known Medications MEDICAL (GENERAL) HISTORY Type Description Date Medical History asthma-childhood agravated hot or cold Medical History seasonal allergies- nasal congestion, ot algia, eyes itch Medical History migraine headaches Medical History anemia Medical History high blood pressure Medical History Unspecified iron deficiency anemia Medical History Perimenopausal Medical History Vitamin D deficiency Surgical History cholecystectomy 2004 Hospitalization History choleystectomy
--- OUTSIDE RECORDS SUMMARY | 2020-03-17 19:10 | XMS REPORT ---
Author Author Ann MCHUGH Organization [facility] Address [address] [place] [address] Care Team Providers Care Storage Center Manager Name Role Phone RAFAELA MCHUGH Unavailable PROBLEMS Type Condition ICD9-CM Code BFR71-HF Code Onset Dates Condition S tatus SNOMED Code Problem Perimenopausal N95.1 Active 27739 [id number] Problem Seasonal allergic rhinitis, unspecified allergic rhinitis trigger J30.2 Active 345593067 Problem Chronic migraine G43.709 Active 377 53002 Problem Anxiety F41.9 Active 06018939 Problem Vitamin D deficiency E55.9 Active 57179294 Problem Essential hypertension I10 Active 63745346 Problem Iron deficiency anemia, unspecified iron deficiency an emia type D50.9 Active 17781102 Problem Carpal tunnel syndrome, bilateral G56.03 Active [id number] Problem Daytime hypersomnia G47.19 Active 37497074520020 Problem Nocturnal dyspnea R06.00 Active 24 2125246 ALLERGIES No Information ENCOUNTERS Encounter Location Date Diagnosis [place] [address] [place] [id number] [address] [place] [address] Apr, Chronic migraine G43.709 ; E ssential hypertension I10 ; Iron deficiency anemia, unspecified iron deficiency anemia type D50.9 and Long-term use of high-risk medication Z79.899 [place] [address] [facility] [id number] [address] [place] [address] Feb, Seasonal allergic rhinitis, unspecified allergic rhinitis trigger J30.2 and Chronic migraine G43.709 [place] [address] [facility] [id number] [address] [place] [address] Feb, Anxiety F41.9 [facility] [address] [place] [id number] [address] [place] [address] Feb, Exposure to pertussis Z20.81 8 [place] [address] [place] [id number] [address] [place] [address] Jan, [place] [address] [address] Jan, Chronic migraine G43.709 and Anxiety F41.9 [place] [address] [address] December, Anxiety F41.9 [place] [address] [place] [id number] [place] [address] Nov, Chronic migraine G43.709 ; S easonal allergic rhinitis, unspecified allergic rhinitis trigger J30.2 ; Vitamin D deficiency E55.9 ; Nocturnal dyspnea R06.00 ; Daytime hypersomnia G47.19 and Anxiety F41.9 [place] [id number] [place] [address] Nov, Chronic migraine G43.709 [place] [address] [place] [id number] [address] [place] [address] Oct, [place] [address] [address] Sep, Carpal tunnel syndrome, bila teral G56.03 [place] [address] [place] [id number] [address] [place] [address] Sep, Chronic migraine G43.709 [place] [address] [place] [id number] [address] [place] [address] Aug, [place] [address] [place] [id number] [address] [place] [address] Jul, Seasonal allergic rhinitis, unspecified allergic rhinitis trigger J30.2 [place] [address] [place] [id number] [address] [place] [address] Jul, Seasonal allergic rhinitis, unspecified allergic rhinitis trigger J30.2 [place] [address] [place] [id number] [address] [place] [address] Jul, Chronic migraine G43.709 [facility] [address] [facility] [id number] [address] [place] [address] Jun, [facility] [address] [id number] [address] [place] [id number] May, Dental caries K02.9 [facility] [address] [facility] [id number] [address] [place] [address] May, Chronic migraine G43.709 [facility] [address] [facility] [id number] [address] [place] [address] Apr, Chronic migraine G43.709 ; I yvette deficiency anemia, unspecified iron deficiency anemia type D50.9 ; Perimenopausal N95.1 and Vitamin D deficiency E55.9 [place] [address] [facility] [id number] [address] [place] [address] Mar, [place] [address] [place] [id number] [address] [place] [address] Mar, Seasonal allergic rhinitis, unspecified allergic rhinitis trigger J30.2 [facility] [address] [facility] [id number] [address] [place] [address] Mar, Chronic migraine G43.709 [facility] [address] [facility] [id number] [address] [place] [address] Mar, [facility] [address] [facility] [id number] [address] [place] [address] Mar, Chronic migraine G43.709 ; I rregular menses N92.6 ; Iron deficiency anemia, unspecified iron deficiency anemia type D50.9 and General medical exam Z00.00 [facility] [address] [facility] [id number] [address] [place] [address] Mar, Chronic migraine G43.709 ; I yvette deficiency anemia, unspecified iron deficiency anemia type D50.9 ; Irregular menses N92.6 and General medical exam Z00.00 [facility] [address] [place] [id number] [address] [place] [address] [id number] Feb, Dental examination Z01.20 [facility] [address] [id number] [address] [place] [address] Feb, Chronic tension-type headach e, 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 and Seasonal allergic rhinitis, unspecified allergic rhinitis trigger J30.2 [facility] [address] [id number] [address] [place] [address] Feb, [facility] [address] [id number] [address] [place] [address] Jan, Seasonal allergic rhinitis, unspecified allergic rhinitis trigger J30.2 [facility] [address] [facility] [id number] [address] [place] [address] December, Chronic tension-type headach e, 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 [facility] [address] [id number] [address] [place] [address] [id number] December, Dental examination Z01.20 [facility] [address] [id number] [address] [place] [address] December, [facility] [address] [facility] [id number] [address] [place] [address] Oct, [facility] [address] [id number] [address] [place] [address] Oct, [facility] [address] [facility] [id number] [address] [place] [address] Oct, Sore throat J02.9 and Season al allergic rhinitis, unspecified allergic rhinitis trigger J30.2 [facility] [address] [id number] [address] [place] [address] Oct, [facility] [address] [facility] [id number] [address] [place] [address] Sep, [facility] [address] [facility] [id number] [address] [place] [address] Aug, Menstrual periods irregular N92.6 ; Chronic tension-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, 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 ; Acute upper respiratory infection, unspecified J06.9 and Other viral agents as the cause of diseases classified elsewhere B97.89 [facility] [address] [id number] [address] [place] [address] Jul, [facility] [address] [id number] [address] [place] [address] Jul, [facility] [address] [id number] [address] [place] [address] Jul, Migraine without aura and wi thout status migrainosus, not intractable G43.009 [facility] [address] [id number] [address] [place] [phone] Jun, [facility] [address] [facility] [id number] [address] [place] [address] May, Migraine without aura and wi thout status migrainosus, not intractable G43.009 [facility] [address] [id number] [address] [place] [phone] May, [facility] [address] [id number] [address] [place] [address] May, [facility] [address] [id number] [address] [place] [address] [id number] Mar, Dental examination Z01.20 [facility] [address] [id number] [address] [place] [address] Mar, [facility] [address] [facility] [id number] [address] [place] [address] Jan, Onychomycosis B35.1 [facility] [address] [id number] [address] [place] [phone] Jan, [facility] [address] [facility] [id number] [address] [place] [address] December, Dental caries K02.9 [facility] [address] [id number] [address] [place] [address] Nov, Dental examination Z01.20 [facility] [address] [id number] [address] [place] [address] Oct, Dental examination Z01.20 [facility] [address] [id number] [address] [place] [phone] Oct, [facility] [address] [id number] [address] [place] [address] Oct, Migraine G43.909 [facility] [address] [id number] [address] [place] [address] Sep, Onychomycosis B35.1 [facility] [address] [id number] [address] [place] [address] Sep, [facility] [address] [facility] [id number] [address] [place] [id number] Aug, [facility] [address] [facility] [id number] [address] [place] [id number] Jul, [facility] [address] [id number] [address] [place] [phone] Apr, [facility] [address] [facility] [id number] [address] [place] [id number] Apr, Right anterior knee pain 719 .46 [facility] [address] [facility] [id number] [address] [place] [id number] Mar, Tendonitis 726.90 ; HTN (hyp ertension) 401.9 ; Tremors of nervous system 781.0 and Anxiety 300.00 [facility] [address] [id number] [address] [place] [address] Mar, Thrush 112.0 [facility] [address] [facility] [id number] [address] [place] [phone] Feb, [facility] [address] [facility] [id number] [address] [place] [phone] Feb, Tremors of nervous system 78 1.0 and Carpal tunnel syndrome 354.0 [facility] [address] [id number] [address] [place] [address] Jan, Anxiety 300.00 ; Tremors of nervous system 781.0 and Tendonitis 726.90 [facility] [address] [id number] [address] [place] [address] Jan, Anxiety 300.00 ; Tremors of nervous system 781.0 and Tendonitis 726.90 [facility] [address] [id number] [address] [place] [address] Jan, Sinusitis 473.9 [facility] [address] [id number] [address] [place] [id number] December, [facility] [address] [id number] [address] [place] [id number] December, [facility] [address] [id number] [address] [place] [phone] December, [facility] [address] [id number] [address] [place] [phone] December, [facility] [address] [id number] [address] [place] [phone] December, [facility] [address] [facility] [id number] [address] [place] [id number] Nov, [facility] [address] [id number] [address] [place] [phone] Nov, [facility] [address] [id number] [address] [place] [phone] Sep, [facility] [address] [id number] [address] [place] [phone] Sep, [facility] [address] [id number] [address] [place] [phone] Sep, [facility] [address] [id number] [address] [place] [phone] Sep, [facility] [address] [id number] [address] [place] [address], [place] [address] Jul, [facility] [address] [id number] [address] [place] [address], [place] [address] Jul, [facility] [address] [id number] [address] [place] [address], [place] [address] Jul, [facility] [address] [id number] [address] [place] [address], [place] [address] Jul, [facility] [address] [id number] [address] [place] [address], [place] [address] Jul, [facility] [address] [id number] [address] [place] [address], [place] [address] Jul, [facility] [address] [id number] [address] [place] [address], [place] [address] Jul, [facility] [address] [id number] [address] [place] [address], [place] [address] Jul, [facility] [address] [id number] [address] [place] [address], [place] [address] Jul, [facility] [address] [id number] [address] [place] [address], [place] [address] Jul, [facility] [address] [id number] [address] [place] [address], [place] [address] Jun, [facility] [address] [id number] [address] [place] [address], [place] [address] Jun, [facility] [address] [id number] [address] [place] [address], [place] [address] Jun, [facility] [address] [id number] [address] [place] [address], [place] [address] Jun, [facility] [address] [id number] [address] [place] [address], [place] [address] May, [facility] [address] [id number] [address] [place] [address], [place] [address] 28 May, 2014 [facility] [address] [id number] [address] [place] [address], [place] [address] 14 May, 2014 [facility] [address] [id number] [address] [place] [address], [place] [address] 14 May, 2014 [facility] [address] [id number] [address] [place] [address], [place] [address] 17 Apr, 2013 [facility] [address] [id number] [address] [place] [address], [place] [address] 17 Apr, 2013 [facility] [address] [id number] [address] [place] [address], [place] [address] 17 Apr, 2013 [facility] [address] [id number] [address] [place] [address], [place] [address] 17 Apr, 2013 [facility] [address] [id number] [address] [place] [address], [place] [address] 16 Apr, 2013 [facility] [address] [id number] [address] [place] [address], [place] [address] 16 Apr, 2013 [facility] [address] [id number] [address] [place] [address], [place] [address] 03 Apr, 2014 [facility] [address] [id number] [address] [place] [address], [place] [address] 03 Apr, 2014 [facility] [address] [id number] [address] [place] [address], [place] [address] Mar, [facility] [address] [id number] [address] [place] [address], [place] [address] Mar, [facility] [address] [id number] [address] [place] [address], [place] [address] Feb, [facility] [address] [id number] [address] [place] [address], [place] [address] Feb, [facility] [address] [id number] [address] [place] [address], [place] [address] Feb, [facility] [address] [id number] [facility] [place] [address] Feb, [facility] [address] [id number] [facility] [place] [address] Jan, [facility] [address] [id number] [address] [place] [address], [place] [address] Jan, [facility] [address] [id number] [address] [place] [address], [place] [address] Jan, [facility] [address] [id number] [address] [place] [address], [place] [address] Jan, [facility] [address] [id number] [address] [place] [address], [place] [address] Jan, [facility] [address] [id number] [address] [place] [address], [place] [address] Jan, [facility] [address] [id number] [address] [place] [address], [place] [address] December, [facility] [address] [id number] [address] [place] [address], [place] [address] December, [facility] [address] [id number] [address] [place] [address], [place] [address] December, [facility] [address] [id number] [address] [place] [address], [place] [address] December, [facility] [address] [id number] [address] [place] [address], [place] [address] December, [facility] [address] [id number] [address] [place] [address], [place] [address] Nov, [facility] [address] [id number] [address] [place] [address], [place] [address] Nov, [facility] [address] [id number] [address] [place] [address], [place] [address] Nov, [facility] [address] [id number] [address] [place] [address], [place] [address] 23 Nov, 2013 [facility] [address] [id number] [address] [place] [address], [place] [address] Nov, [facility] [address] [id number] [address] [place] [address], [place] [address] Nov, [facility] [address] [id number] [address] [place] [address], [place] [address] Oct, [facility] [address] [id number] [address] [place] [address], [place] [address] Oct, [facility] [address] [id number] [address] [place] [address], [place] [address] Oct, [facility] [address] [id number] [address] [place] [address], [place] [address] Oct, [facility] [address] [id number] [address] [place] [address], [place] [address] 14 Sep, 2013 [facility] [address] [id number] [address] [place] [address], [place] [address] 14 Sep, 2013 [facility] [address] [id number] [address] [place] [address], [place] [address] 10 Sep, 2013 [facility] [address] [id number] [address] [place] [address], [place] [address] 10 Sep, 2013 [facility] [address] [id number] [address] [place] [address], [place] [address] 07 Sep, 2013 [facility] [address] [id number] [address] [place] [address], [place] [address] 06 Sep, 2013 [facility] [address] [id number] [address] [place] [address], [place] [id number] 06 Sep, 2013 [facility] [address] [id number] [address] [place] [address], [place] [id number] 05 Sep, 2013 [facility] [address] [id number] [address] [place] [address], [place] [address] Sep, [facility] [address] [id number] [address] [place] [address], [place] [address] Sep, [facility] [address] [id number] [address] [place] [address], [place] [address] Sep, [facility] [address] [id number] [address] [place] [address], [place] [address] Sep, [facility] [address] [id number] [address] [place] [address], [place] [address] Sep, [facility] [address] [id number] [address] [place] [address], [place] [address] Aug, [facility] [address] [id number] [address] [place] [address], [place] [address] Aug, [facility] [address] [id number] [address] [place] [address], [place] [address] Jul, [facility] [address] [id number] [address] [place] [address], [place] [address] Jul, [facility] [address] [id number] [address] [place] [address], [place] [address] Jun, [facility] [address] [id number] [address] [place] [address], [place] [address] Jun, [facility] [address] [id number] [address] [place] [address], [place] [address] May, [facility] [address] [id number] [address] [place] [address], [place] [address] Apr, [facility] [address] [id number] [address] [place] [address], [place] [address] Mar, [facility] [address] [id number] [address] [place] [address], [place] [address] Jan, [facility] [address] [id number] [address] [place] [address], [place] [address] December, [facility] [address] [id number] [address] [place] [address], [place] [address] December, [facility] [address] [id number] [address] [place] [address], [place] [address] Oct, [facility] [address] [id number] [address] [place] [address], [place] [address] Oct, [facility] [address] [id number] [address] [place] [address], [place] [address] Sep, [facility] [address] [id number] [address] [place] [address], [place] [address] Aug, [facility] [address] [id number] [address] [place] [address], [place] [address] Aug, [facility] [address] [id number] [address] [place] [address], [place] [address] Jul, [facility] [address] [id number] [address] [place] [address], [place] [address] Jul, [facility] [address] [id number] [address] [place] [address], [place] [id number] Mar, [facility] [address] [id number] [address] [place] [address], [place] [address] Mar, [facility] [address] [id number] [address] [place] [address], [place] [id number] Feb, [facility] [address] [id number] [address] [place] [address], [place] [address] Feb, [facility] [address] [id number] [address] [place] [address], [place] [address] Feb, [facility] [address] [id number] [address] [place] [address], [place] [address] Jan, [facility] [address] [id number] [address] [place] [address], [place] [address] Nov, [facility] [address] [id number] [address] [place] [address], [place] [id number] 17 Sep, 2011 [facility] [address] [id number] [address] [place] [address], [place] [id number] 15 Sep, 2011 [facility] [address] [id number] [address] [place] [address], [place] [address] Sep, [facility] [address] [id number] [address] [place] [address], [place] [address] Aug, [facility] [address] [id number] [address] [place] [address], [place] [address] Aug, [facility] [address] [id number] [address] [place] [address], [place] [address] Aug, [facility] [address] [id number] [address] [place] [address], [place] [address] Jun, [facility] [address] [id number] [address] [place] [address], [place] [address] Jun, [facility] [address] [id number] [address] [place] [address], [place] [address] Jun, [facility] [address] [id number] [address] [place] [address], [place] [address] Jun, [facility] [address] [id number] [address] [place] [address], [place] [address] May, [facility] [address] [id number] [address] [place] [address], [place] [address] May, [facility] [address] [id number] [address] [place] [id number] May, [facility] [address] [id number] [address] [place] [address], [place] [address] May, [facility] [address] [id number] [address] [place] [address], [place] [address] Jun, [facility] [address] [id number] [address] [place] [address], [place] [address] December, [facility] [address] [id number] [place] [address] 29 May, 2009 IMMUNIZATIONS No Known Immunizations SOCIAL HISTORY Never Assessed REASON FOR VISIT PLAN OF CARE VITAL SIGNS MEDICATIONS No Known Medications RESULTS No Results PROCEDURES Procedure Date Ordered Result Body Site COMPLETE CBC W/AUTO DIFF WBC Apr 23, 2014 IRON BINDING TEST Apr 23, 2014 ASSAY OF IRON Apr 23, 2014 ASSAY OF FERRITIN Apr 23, 2014 COMPREHEN METABOLIC PANEL Apr 23, 2014 VENIPUNCT, ROUTINE* Apr 23, 2014 INSTRUCTIONS MEDICATIONS ADMINISTERED No Known Medications MEDICAL [...]
--- OUTSIDE RECORDS SUMMARY | 2020-03-17 19:10 | XMS REPORT ---
Author Author Ann MCHUGH Organization [facility] Address [address] [place] [address] Care Team Providers Care Senior Business Consultant Name Role Phone RAFAELA MCHUGH Unavailable PROBLEMS Type Condition ICD9-CM Code QIL78-EM Code Onset Dates Condition S tatus SNOMED Code Problem Perimenopausal N95.1 Active 33567 [id number] Problem Seasonal allergic rhinitis, unspecified allergic rhinitis trigger J30.2 Active 094640173 Problem Chronic migraine G43.709 Active 377 71314 Problem Anxiety F41.9 Active 51218862 Problem Vitamin D deficiency E55.9 Active 08709616 Problem Essential hypertension I10 Active 20161205 Problem Iron deficiency anemia, unspecified iron deficiency an emia type D50.9 Active 18321471 Problem Carpal tunnel syndrome, bilateral G56.03 Active [id number] Problem Daytime hypersomnia G47.19 Active 23199447503002 Problem Nocturnal dyspnea R06.00 Active 24 3532976 ALLERGIES No Information ENCOUNTERS Encounter Location Date Diagnosis [place] [address] [place] [id number] [address] [place] [address] Apr, Chronic migraine G43.709 ; E ssential hypertension I10 ; Iron deficiency anemia, unspecified iron deficiency anemia type D50.9 and Long-term use of high-risk medication Z79.899 [place] [address] [facility] [id number] [address] [place] [address] Feb, Seasonal allergic rhinitis, unspecified allergic rhinitis trigger J30.2 and Chronic migraine G43.709 [place] [address] [facility] [id number] [address] [place] [address] Feb, Anxiety F41.9 [facility] [address] [place] [id number] [address] [place] [address] Feb, Exposure to pertussis Z20.81 8 [place] [address] [place] [id number] [address] [place] [address] Jan, [place] [address] [address] Jan, Chronic migraine G43.709 and Anxiety F41.9 [place] [address] [address] December, Anxiety F41.9 [place] [address] [place] [id number] [place] [address] Nov, Chronic migraine G43.709 ; S easonal allergic rhinitis, unspecified allergic rhinitis trigger J30.2 ; Vitamin D deficiency E55.9 ; Nocturnal dyspnea R06.00 ; Daytime hypersomnia G47.19 and Anxiety F41.9 [place] [id number] [place] [address] Nov, Chronic migraine G43.709 [place] [address] [place] [id number] [address] [place] [address] Oct, [place] [address] [address] Sep, Carpal tunnel syndrome, bila teral G56.03 [place] [address] [place] [id number] [address] [place] [address] Sep, Chronic migraine G43.709 [place] [address] [place] [id number] [address] [place] [address] Aug, [place] [address] [place] [id number] [address] [place] [address] Jul, Seasonal allergic rhinitis, unspecified allergic rhinitis trigger J30.2 [place] [address] [place] [id number] [address] [place] [address] Jul, Seasonal allergic rhinitis, unspecified allergic rhinitis trigger J30.2 [place] [address] [place] [id number] [address] [place] [address] Jul, Chronic migraine G43.709 [facility] [address] [facility] [id number] [address] [place] [address] Jun, [facility] [address] [id number] [address] [place] [address] [id number] May, Dental caries K02.9 [facility] [address] [facility] [id number] [address] [place] [address] May, Chronic migraine G43.709 [facility] [address] [facility] [id number] [address] [place] [address] Apr, Chronic migraine G43.709 ; I yvette deficiency anemia, unspecified iron deficiency anemia type D50.9 ; Perimenopausal N95.1 and Vitamin D deficiency E55.9 [place] [address] [facility] [id number] [address] [place] [address] Mar, [place] [address] [place] [id number] [address] [place] [address] Mar, Seasonal allergic rhinitis, unspecified allergic rhinitis trigger J30.2 [facility] [address] [facility] [id number] [address] [place] [address] Mar, Chronic migraine G43.709 [facility] [address] [facility] [id number] [address] [place] [address] Mar, [facility] [address] [facility] [id number] [address] [place] [address] Mar, Chronic migraine G43.709 ; I rregular menses N92.6 ; Iron deficiency anemia, unspecified iron deficiency anemia type D50.9 and General medical exam Z00.00 [facility] [address] [facility] [id number] [address] [place] [address] Mar, Chronic migraine G43.709 ; I yvette deficiency anemia, unspecified iron deficiency anemia type D50.9 ; Irregular menses N92.6 and General medical exam Z00.00 [facility] [address] [place] [id number] [address] [place] [address] [id number] Feb, Dental examination Z01.20 [facility] [address] [id number] [address] [place] [address] Feb, Chronic tension-type headach e, 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 and Seasonal allergic rhinitis, unspecified allergic rhinitis trigger J30.2 [facility] [address] [id number] [address] [place] [address] Feb, [facility] [address] [id number] [address] [place] [address] Jan, Seasonal allergic rhinitis, unspecified allergic rhinitis trigger J30.2 [facility] [address] [facility] [id number] [address] [place] [address] December, Chronic tension-type headach e, 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 [facility] [address] [id number] [address] [place] [address] [id number] December, Dental examination Z01.20 [facility] [address] [id number] [address] [place] [address] December, [facility] [address] [facility] [id number] [address] [place] [address] Oct, [facility] [address] [id number] [address] [place] [address] Oct, [facility] [address] [facility] [id number] [address] [place] [address] Oct, Sore throat J02.9 and Season al allergic rhinitis, unspecified allergic rhinitis trigger J30.2 [facility] [address] [id number] [address] [place] [address] Oct, [facility] [address] [facility] [id number] [address] [place] [address] Sep, [facility] [address] [facility] [id number] [address] [place] [address] Aug, Menstrual periods irregular N92.6 ; Chronic tension-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, 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 ; Acute upper respiratory infection, unspecified J06.9 and Other viral agents as the cause of diseases classified elsewhere B97.89 [facility] [address] [id number] [address] [place] [address] Jul, [facility] [address] [id number] [address] [place] [address] Jul, [facility] [address] [id number] [address] [place] [address] Jul, Migraine without aura and wi thout status migrainosus, not intractable G43.009 [facility] [address] [id number] [address] [place] [address] Jun, [facility] [address] [facility] [id number] [address] [place] [address] May, Migraine without aura and wi thout status migrainosus, not intractable G43.009 [facility] [address] [id number] [address] [place] [address] May, [facility] [address] [id number] [address] [place] [address] May, [facility] [address] [id number] [address] [place] [address] [id number] Mar, Dental examination Z01.20 [facility] [address] [id number] [address] [place] [address] Mar, [facility] [address] [facility] [id number] [address] [place] [address] Jan, Onychomycosis B35.1 [facility] [address] [id number] [address] [place] [address] Jan, [facility] [address] [facility] [id number] [address] [place] [address] December, Dental caries K02.9 [facility] [address] [id number] [address] [place] [address] Nov, Dental examination Z01.20 [facility] [address] [id number] [address] [place] [address] Oct, Dental examination Z01.20 [facility] [address] [id number] [address] [place] [address] Oct, [facility] [address] [id number] [address] [place] [address] Oct, Migraine G43.909 [facility] [address] [id number] [address] [place] [address] Sep, Onychomycosis B35.1 [facility] [address] [id number] [address] [place] [address] Sep, [facility] [address] [facility] [id number] [address] [place] [address] Aug, [facility] [address] [facility] [id number] [address] [place] [address] Jul, [facility] [address] [id number] [address] [place] [address] Apr, [facility] [address] [facility] [id number] [address] [place] [address] Apr, Right anterior knee pain 719 .46 [facility] [address] [facility] [id number] [address] [place] [address] Mar, Tendonitis 726.90 ; HTN (hyp ertension) 401.9 ; Tremors of nervous system 781.0 and Anxiety 300.00 [facility] [address] [id number] [address] [place] [address] Mar, Thrush 112.0 [facility] [address] [facility] [id number] [address] [place] [address] Feb, [facility] [address] [facility] [id number] [address] [place] [address] Feb, Tremors of nervous system 78 1.0 and Carpal tunnel syndrome 354.0 [facility] [address] [id number] [address] [place] [address] Jan, Anxiety 300.00 ; Tremors of nervous system 781.0 and Tendonitis 726.90 [facility] [address] [id number] [address] [place] [address] Jan, Anxiety 300.00 ; Tremors of nervous system 781.0 and Tendonitis 726.90 [facility] [address] [id number] [address] [place] [address] Jan, Sinusitis 473.9 [facility] [address] [id number] [address] [place] [address] December, [facility] [address] [id number] [address] [place] [address] December, [facility] [address] [id number] [address] [place] [address] December, [facility] [address] [id number] [address] [place] [address] December, [facility] [address] [id number] [address] [place] [address] December, [facility] [address] [facility] [id number] [address] [place] [address] Nov, [facility] [address] [id number] [address] [place] [address] Nov, [facility] [address] [id number] [address] [place] [address] Sep, [facility] [address] [id number] [address] [place] [address] Sep, [facility] [address] [id number] [address] [place] [address] Sep, [facility] [address] [id number] [address] [place] [address] Sep, [facility] [address] [id number] [address] [place] [address], [place] [address] Jul, [facility] [address] [id number] [address] [place] [address], [place] [address] Jul, [facility] [address] [id number] [address] [place] [address], [place] [address] Jul, [facility] [address] [id number] [address] [place] [address], [place] [address] Jul, [facility] [address] [id number] [address] [place] [address], [place] [address] Jul, [facility] [address] [id number] [address] [place] [address], [place] [address] Jul, [facility] [address] [id number] [address] [place] [address], [place] [address] Jul, [facility] [address] [id number] [address] [place] [address], [place] [address] Jul, [facility] [address] [id number] [address] [place] [address], [place] [address] Jul, [facility] [address] [id number] [address] [place] [address], [place] [address] Jul, [facility] [address] [id number] [address] [place] [address], [place] [address] Jun, [facility] [address] [id number] [address] [place] [address], [place] [address] Jun, [facility] [address] [id number] [address] [place] [address], [place] [address] Jun, [facility] [address] [id number] [address] [place] [address], [place] [address] Jun, [facility] [address] [id number] [address] [place] [address], [place] [address] May, [facility] [address] [id number] [address] [place] [address], [place] [address] 28 May, 2014 [facility] [address] [id number] [address] [place] [address], [place] [address] 14 May, 2014 [facility] [address] [id number] [address] [place] [address], [place] [address] 14 May, 2014 [facility] [address] [id number] [address] [place] [address], [place] [address] 17 Apr, 2013 [facility] [address] [id number] [address] [place] [address], [place] [address] 17 Apr, 2013 [facility] [address] [id number] [address] [place] [address], [place] [address] 17 Apr, 2013 [facility] [address] [id number] [address] [place] [address], [place] [address] 17 Apr, 2013 [facility] [address] [id number] [address] [place] [address], [place] [address] 16 Apr, 2013 [facility] [address] [id number] [address] [place] [address], [place] [address] 16 Apr, 2013 [facility] [address] [id number] [address] [place] [address], [place] [address] 03 Apr, 2014 [facility] [address] [id number] [address] [place] [address], [place] [address] 03 Apr, 2014 [facility] [address] [id number] [address] [place] [address], [place] [address] Mar, [facility] [address] [id number] [address] [place] [address], [place] [address] Mar, [facility] [address] [id number] [address] [place] [address], [place] [address] Feb, [facility] [address] [id number] [address] [place] [address], [place] [address] Feb, [facility] [address] [id number] [address] [place] [address], [place] [address] Feb, [facility] [address] [id number] [facility] [address] Feb, [facility] [address] [id number] [facility] [address] Jan, [facility] [address] [id number] [address] [place] [address], [place] [address] Jan, [facility] [address] [id number] [address] [place] [address], [place] [address] Jan, [facility] [address] [id number] [address] [place] [address], [place] [address] Jan, [facility] [address] [id number] [address] [place] [address], [place] [address] Jan, [facility] [address] [id number] [address] [place] [address], [place] [address] Jan, [facility] [address] [id number] [address] [place] [address], [place] [address] December, [facility] [address] [id number] [address] [place] [address], [place] [address] December, [facility] [address] [id number] [address] [place] [address], [place] [address] December, [facility] [address] [id number] [address] [place] [address], [place] [address] December, [facility] [address] [id number] [address] [place] [address], [place] [address] December, [facility] [address] [id number] [address] [place] [address], [place] [address] Nov, [facility] [address] [id number] [address] [place] [address], [place] [address] Nov, [facility] [address] [id number] [address] [place] [address], [place] [address] Nov, [facility] [address] [id number] [address] [place] [address], [place] [address] 23 Nov, 2013 [facility] [address] [id number] [address] [place] [address], [place] [address] Nov, [facility] [address] [id number] [address] [place] [address], [place] [address] Nov, [facility] [address] [id number] [address] [place] [address], [place] [address] Oct, [facility] [address] [id number] [address] [place] [address], [place] [address] Oct, [facility] [address] [id number] [address] [place] [address], [place] [address] Oct, [facility] [address] [id number] [address] [place] [address], [place] [address] Oct, [facility] [address] [id number] [address] [place] [address], [place] [address] 14 Sep, 2013 [facility] [address] [id number] [address] [place] [address], [place] [address] 14 Sep, 2013 [facility] [address] [id number] [address] [place] [address], [place] [address] 10 Sep, 2013 [facility] [address] [id number] [address] [place] [address], [place] [address] 10 Sep, 2013 [facility] [address] [id number] [address] [place] [address], [place] [address] 07 Sep, 2013 [facility] [address] [id number] [address] [place] [address], [place] [address] 06 Sep, 2013 [facility] [address] [id number] [address] [place] [address], [place] [address] 06 Sep, 2013 [facility] [address] [id number] [address] [place] [address], [place] [address] 05 Sep, 2013 [facility] [address] [id number] [address] [place] [address], [place] [address] Sep, [facility] [address] [id number] [address] [place] [address], [place] [address] Sep, [facility] [address] [id number] [address] [place] [address], [place] [address] Sep, [facility] [address] [id number] [address] [place] [address], [place] [address] Sep, [facility] [address] [id number] [address] [place] [address], [place] [address] Sep, [facility] [address] [id number] [address] [place] [address], [place] [address] Aug, [facility] [address] [id number] [address] [place] [address], [place] [address] Aug, [facility] [address] [id number] [address] [place] [address], [place] [address] Jul, [facility] [address] [id number] [address] [place] [address], [place] [address] Jul, [facility] [address] [id number] [address] [place] [address], [place] [address] Jun, [facility] [address] [id number] [address] [place] [address], [place] [address] Jun, [facility] [address] [id number] [address] [place] [address], [place] [address] May, [facility] [address] [id number] [address] [place] [address], [place] [address] Apr, [facility] [address] [id number] [address] [place] [address], [place] [address] Mar, [facility] [address] [id number] [address] [place] [address], [place] [address] Jan, [facility] [address] [id number] [address] [place] [address], [place] [address] December, [facility] [address] [id number] [address] [place] [address], [place] [address] December, [facility] [address] [id number] [address] [place] [address], [place] [address] Oct, [facility] [address] [id number] [address] [place] [address], [place] [address] Oct, [facility] [address] [id number] [address] [place] [address], [place] [address] Sep, [facility] [address] [id number] [address] [place] [address], [place] [address] Aug, [facility] [address] [id number] [address] [place] [address], [place] [address] Aug, [facility] [address] [id number] [address] [place] [address], [place] [address] Jul, [facility] [address] [id number] [address] [place] [address], [place] [address] Jul, [facility] [address] [id number] [address] [place] [address], [place] [address] Mar, [facility] [address] [id number] [address] [place] [address], [place] [address] Mar, [facility] [address] [id number] [address] [place] [address], [place] [address] Feb, [facility] [address] [id number] [address] [place] [address], [place] [address] Feb, [facility] [address] [id number] [address] [place] [address], [place] [address] Feb, [facility] [address] [id number] [address] [place] [address], [place] [address] Jan, [facility] [address] [id number] [address] [place] [address], [place] [address] Nov, [facility] [address] [id number] [address] [place] [address], [place] [address] 17 Sep, 2011 [facility] [address] [address] [id number] [address] [place] [address], [place] [address] 15 Sep, 2011 [facility] [address] [id number] [address] [place] [address], [place] [address] Sep, [facility] [address] [id number] [address] [place] [address], [place] [address] Aug, [facility] [address] [id number] [address] [place] [address], [place] [address] Aug, [facility] [address] [id number] [address] [place] [address], [place] [address] Aug, [facility] [address] [id number] [address] [place] [address], [place] [address] Jun, [facility] [address] [id number] [address] [place] [address], [place] [address] Jun, [facility] [address] [id number] [address] [place] [address], [place] [address] Jun, [facility] [address] [id number] [address] [place] [address], [place] [address] Jun, [facility] [address] [id number] [address] [place] [address], [place] [address] May, [facility] [address] [id number] [address] [place] [address], [place] [address] May, [facility] [address] [id number] [address] [place] [address] May, [facility] [address] [id number] [address] [place] [address], [place] [address] May, [facility] [address] [id number] [address] [place] [address], [place] [address] Jun, [facility] [address] [id number] [address] [place] [address], [place] [address] December, [facility] [address] [id number] [facility] [place] [address] 29 May, 2009 IMMUNIZATIONS No Known Immunizations [...]
--- OUTSIDE RECORDS SUMMARY | 2020-03-17 19:10 | XMS REPORT ---
Author Author Ann MCHUGH Organization [facility] Address [address] [place] [address] Care Team Providers Care Nursing Service Director Name Role Phone RAFAELA MCHUGH Unavailable PROBLEMS Type Condition ICD9-CM Code [id number] Code Onset Dates Condition S tatus SNOMED Code Problem Perimenopausal N95.1 Active 80877 [id number] Problem Seasonal allergic rhinitis, unspecified allergic rhinitis trigger J30.2 Active 583830456 Problem Chronic migraine G43.709 Active 377 51949 Problem Anxiety F41.9 Active 06211247 Problem Vitamin D deficiency E55.9 Active 31196995 Problem Essential hypertension I10 Active 91314368 Problem Iron deficiency anemia, unspecified iron deficiency an emia type D50.9 Active 59075895 Problem Carpal tunnel syndrome, bilateral G56.03 Active [id number] Problem Daytime hypersomnia G47.19 Active [id number] Problem Nocturnal dyspnea R06.00 Active 24 3275253 ALLERGIES No Information ENCOUNTERS Encounter Location Date Diagnosis [place] [address] [place] [id number] [address] [place] [address] Apr, Chronic migraine G43.709 ; E ssential hypertension I10 ; Iron deficiency anemia, unspecified iron deficiency anemia type D50.9 and Long-term use of high-risk medication Z79.899 [place] [id number] [facility] [id number] [address] [place] [address] Feb, Seasonal allergic rhinitis, unspecified allergic rhinitis trigger J30.2 and Chronic migraine G43.709 [place] [address] [facility] [id number] [address] [place] [address] Feb, Anxiety F41.9 [facility] [address] [place] [id number] [address] [place] [id number] Feb, Exposure to pertussis Z20.81 8 [place] [address] [place] [id number] [address] [place] [address] Jan, [place] [address] [address] Jan, Chronic migraine G43.709 and Anxiety F41.9 [place] [address] [address] December, Anxiety F41.9 [place] [address] [place] [id number] [place] [address] Nov, Chronic migraine G43.709 ; S easonal allergic rhinitis, unspecified allergic rhinitis trigger J30.2 ; Vitamin D deficiency E55.9 ; Nocturnal dyspnea R06.00 ; Daytime hypersomnia G47.19 and Anxiety F41.9 [place] [id number] [place] [address] Nov, Chronic migraine G43.709 [place] [address] [place] [id number] [address] [place] [phone] Oct, [place] [address] [address] Sep, Carpal tunnel syndrome, bila teral G56.03 [place] [address] [place] [id number] [address] [place] [address] Sep, Chronic migraine G43.709 [place] [address] [place] [id number] [address] [place] [address] Aug, [place] [address] [place] [id number] [address] [place] [phone] Jul, Seasonal allergic rhinitis, unspecified allergic rhinitis trigger J30.2 [place] [address] [place] [id number] [address] [place] [address] Jul, Seasonal allergic rhinitis, unspecified allergic rhinitis trigger J30.2 [place] [address] [place] [id number] [address] [place] [address] Jul, Chronic migraine G43.709 [facility] [address] [facility] [id number] [address] [place] [address] Jun, [facility] [address] [id number] [address] [place] [id number] May, Dental caries K02.9 [facility] [address] [facility] [id number] [address] [place] [address] May, Chronic migraine G43.709 [facility] [address] [facility] [id number] [address] [place] [address] Apr, Chronic migraine G43.709 ; I yvette deficiency anemia, unspecified iron deficiency anemia type D50.9 ; Perimenopausal N95.1 and Vitamin D deficiency E55.9 [place] [address] [facility] [id number] [address] [place] [phone] Mar, [place] [address] [place] [id number] [address] [place] [phone] Mar, Seasonal allergic rhinitis, unspecified allergic rhinitis trigger J30.2 [facility] [address] [facility] [id number] [address] [place] [address] Mar, Chronic migraine G43.709 [facility] [address] [facility] [id number] [address] [place] [phone] Mar, [facility] [address] [facility] [id number] [address] [place] [address] Mar, Chronic migraine G43.709 ; I rregular menses N92.6 ; Iron deficiency anemia, unspecified iron deficiency anemia type D50.9 and General medical exam Z00.00 [facility] [address] [facility] [id number] [address] [place] [address] Mar, Chronic migraine G43.709 ; I yvette deficiency anemia, unspecified iron deficiency anemia type D50.9 ; Irregular menses N92.6 and General medical exam Z00.00 [facility] [address] [place] [id number] [address] [place] [id number] Feb, Dental examination Z01.20 [facility] [address] [id number] [address] [place] [address] Feb, Chronic tension-type headach e, 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 and Seasonal allergic rhinitis, unspecified allergic rhinitis trigger J30.2 [facility] [address] [id number] [address] [place] [id number] Feb, [facility] [address] [id number] [address] [place] [phone] Jan, Seasonal allergic rhinitis, unspecified allergic rhinitis trigger J30.2 [facility] [address] [facility] [id number] [address] [place] [phone] December, Chronic tension-type headach e, 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 [facility] [address] [id number] [address] [place] [id number] December, Dental examination Z01.20 [facility] [address] [id number] [address] [place] [phone] December, [facility] [address] [facility] [id number] [address] [place] [phone] Oct, [facility] [address] [id number] [address] [place] [phone] Oct, [facility] [address] [facility] [id number] [address] [place] [phone] Oct, Sore throat J02.9 and Season al allergic rhinitis, unspecified allergic rhinitis trigger J30.2 [facility] [address] [id number] [address] [place] [phone] Oct, [facility] [address] [facility] [id number] [address] [place] [phone] Sep, [facility] [address] [facility] [id number] [address] [place] [phone] Aug, Menstrual periods irregular N92.6 ; Chronic tension-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, 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 ; Acute upper respiratory infection, unspecified J06.9 and Other viral agents as the cause of diseases classified elsewhere B97.89 [facility] [address] [id number] [address] [place] [phone] Jul, [facility] [address] [id number] [address] [place] [phone] Jul, [facility] [address] [id number] [address] [place] [phone] Jul, Migraine without aura and wi thout status migrainosus, not intractable G43.009 [facility] [address] [id number] [address] [place] [phone] Jun, [facility] [address] [facility] [id number] [address] [place] [address] May, Migraine without aura and wi thout status migrainosus, not intractable G43.009 [facility] [address] [id number] [address] [place] [phone] May, [facility] [address] [id number] [address] [place] [address] May, [facility] [address] [id number] [address] [place] [address] [id number] Mar, Dental examination Z01.20 [facility] [address] [id number] [address] [place] [phone] Mar, [facility] [address] [facility] [id number] [address] [place] [phone] Jan, Onychomycosis B35.1 [facility] [address] [id number] [address] [place] [phone] Jan, [facility] [address] [facility] [id number] [address] [place] [address] December, Dental caries K02.9 [facility] [address] [id number] [address] [place] [address] Nov, Dental examination Z01.20 [facility] [address] [id number] [address] [place] [phone] Oct, Dental examination Z01.20 [facility] [address] [id number] [address] [place] [phone] Oct, [facility] [address] [id number] [address] [place] [phone] Oct, Migraine G43.909 [facility] [address] [id number] [address] [place] [address] Sep, Onychomycosis B35.1 [facility] [address] [id number] [address] [place] [phone] Sep, [facility] [address] [facility] [id number] [address] [place] [phone] Aug, [facility] [address] [facility] [id number] [address] [place] [phone] Jul, [facility] [address] [id number] [address] [place] [phone] Apr, [facility] [address] [facility] [id number] [address] [place] [phone] Apr, Right anterior knee pain 719 .46 [facility] [address] [facility] [id number] [address] [place] [address] Mar, Tendonitis 726.90 ; HTN (hyp ertension) 401.9 ; Tremors of nervous system 781.0 and Anxiety 300.00 [facility] [address] [id number] [address] [place] [address] Mar, Thrush 112.0 [facility] [address] [facility] [id number] [address] [place] [phone] Feb, [facility] [address] [facility] [id number] [address] [place] [id number] Feb, Tremors of nervous system 78 1.0 and Carpal tunnel syndrome 354.0 [facility] [address] [id number] [address] [place] [phone] Jan, Anxiety 300.00 ; Tremors of nervous system 781.0 and Tendonitis 726.90 [facility] [address] [id number] [address] [place] [address] Jan, Anxiety 300.00 ; Tremors of nervous system 781.0 and Tendonitis 726.90 [facility] [address] [id number] [address] [place] [phone] Jan, Sinusitis 473.9 [facility] [address] [id number] [address] [place] [id number] December, [facility] [address] [id number] [address] [place] [phone] December, [facility] [address] [id number] [address] [place] [phone] December, [facility] [address] [id number] [address] [place] [phone] December, [facility] [address] [id number] [address] [place] [phone] December, [facility] [address] [facility] [id number] [address] [place] [phone] Nov, [facility] [address] [id number] [address] [place] [phone] Nov, [facility] [address] [id number] [address] [place] [phone] Sep, [facility] [address] [id number] [address] [place] [phone] Sep, [facility] [address] [id number] [address] [place] [phone] Sep, [facility] [address] [id number] [address] [place] [phone] Sep, [facility] [address] [id number] [address] [place] [address], [place] [address] Jul, [facility] [address] [id number] [address] [place] [address], [place] [address] Jul, [facility] [address] [id number] [address] [place] [address], [place] [address] Jul, [facility] [address] [id number] [address] [place] [address], [place] [address] Jul, [facility] [address] [id number] [address] [place] [address], [place] [address] Jul, [facility] [address] [id number] [address] [place] [address], [place] [address] Jul, [facility] [address] [id number] [address] [place] [address], [place] [address] Jul, [facility] [address] [id number] [address] [place] [address], [place] [address] Jul, [facility] [address] [id number] [address] [place] [address], [place] [address] Jul, [facility] [address] [id number] [address] [place] [address], [place] [address] Jul, [facility] [address] [id number] [address] [place] [address], [place] [address] Jun, [facility] [address] [id number] [address] [place] [address], [place] [address] Jun, [facility] [address] [id number] [address] [place] [address], [place] [address] Jun, [facility] [address] [id number] [address] [place] [address], [place] [address] Jun, [facility] [address] [id number] [address] [place] [address], [place] [address] May, [facility] [address] [id number] [address] [place] [address], [place] [address] 28 May, 2014 [facility] [address] [id number] [address] [place] [address], [place] [address] 14 May, 2014 [facility] [address] [id number] [address] [place] [address], [place] [address] 14 May, 2014 [facility] [address] [id number] [address] [place] [address], [place] [address] 17 Apr, 2013 [facility] [address] [id number] [address] [place] [address], [place] [address] 17 Apr, 2013 [facility] [address] [id number] [address] [place] [address], [place] [address] 17 Apr, 2013 [facility] [address] [id number] [address] [place] [address], [place] [address] 17 Apr, 2013 [facility] [address] [id number] [address] [place] [address], [place] [address] 16 Apr, 2013 [facility] [address] [id number] [address] [place] [address], [place] [address] 16 Apr, 2013 [facility] [address] [id number] [address] [place] [address], [place] [address] 03 Apr, 2014 [facility] [address] [id number] [address] [place] [address], [place] [address] 03 Apr, 2014 [facility] [address] [id number] [address] [place] [address], [place] [address] Mar, [facility] [address] [id number] [address] [place] [address], [place] [address] Mar, [facility] [address] [id number] [address] [place] [address], [place] [address] Feb, [facility] [address] [id number] [address] [place] [address], [place] [address] Feb, [facility] [address] [id number] [address] [place] [address], [place] [address] Feb, [facility] [address] [id number] [facility] [place] [address] Feb, [facility] [address] [id number] [facility] [place] [address] Jan, [facility] [address] [id number] [address] [place] [address], [place] [address] Jan, [facility] [address] [id number] [address] [place] [address], [place] [address] Jan, [facility] [address] [id number] [address] [place] [address], [place] [address] Jan, [facility] [address] [id number] [address] [place] [address], [place] [address] Jan, [facility] [address] [id number] [address] [place] [address], [place] [address] Jan, [facility] [address] [id number] [address] [place] [address], [place] [address] December, [facility] [address] [id number] [address] [place] [address], [place] [address] December, [facility] [address] [id number] [address] [place] [address], [place] [address] December, [facility] [address] [id number] [address] [place] [address], [place] [address] December, [facility] [address] [id number] [address] [place] [address], [place] [address] December, [facility] [address] [id number] [address] [place] [address], [place] [address] Nov, [facility] [address] [id number] [address] [place] [address], [place] [address] Nov, [facility] [address] [id number] [address] [place] [address], [place] [address] Nov, [facility] [address] [id number] [address] [place] [address], [place] [address] 23 Nov, 2013 [facility] [address] [id number] [address] [place] [address], [place] [address] Nov, [facility] [address] [id number] [address] [place] [address], [place] [address] Nov, [facility] [address] [id number] [address] [place] [address], [place] [address] Oct, [facility] [address] [id number] [address] [place] [address], [place] [address] Oct, [facility] [address] [id number] [address] [place] [address], [place] [address] Oct, [facility] [address] [id number] [address] [place] [address], [place] [address] Oct, [facility] [address] [id number] [address] [place] [address], [place] [address] 14 Sep, 2013 [facility] [address] [id number] [address] [place] [address], [place] [address] 14 Sep, 2013 [facility] [address] [id number] [address] [place] [address], [place] [address] 10 Sep, 2013 [facility] [address] [id number] [address] [place] [address], [place] [address] 10 Sep, 2013 [facility] [address] [id number] [address] [place] [address], [place] [address] 07 Sep, 2013 [facility] [address] [id number] [address] [place] [address], [place] [address] 06 Sep, 2013 [facility] [address] [id number] [address] [place] [address], [place] [address] 06 Sep, 2013 [facility] [address] [id number] [address] [place] [address], [place] [address] 05 Sep, 2013 [facility] [address] [id number] [address] [place] [address], [place] [address] Sep, [facility] [address] [id number] [address] [place] [address], [place] [address] Sep, [facility] [address] [id number] [address] [place] [address], [place] [address] Sep, [facility] [address] [id number] [address] [place] [address], [place] [address] Sep, [facility] [address] [id number] [address] [place] [address], [place] [address] Sep, [facility] [address] [id number] [address] [place] [address], [place] [address] Aug, [facility] [address] [id number] [address] [place] [address], [place] [address] Aug, [facility] [address] [id number] [address] [place] [address], [place] [address] Jul, [facility] [address] [id number] [address] [place] [address], [place] [address] Jul, [facility] [address] [id number] [address] [place] [address], [place] [address] Jun, [facility] [address] [id number] [address] [place] [address], [place] [address] Jun, [facility] [address] [id number] [address] [place] [address], [place] [address] May, [facility] [address] [id number] [address] [place] [address], [place] [address] Apr, [facility] [address] [id number] [address] [place] [address], [place] [address] Mar, [facility] [address] [id number] [address] [place] [address], [place] [address] Jan, [facility] [address] [id number] [address] [place] [address], [place] [address] December, [facility] [address] [id number] [address] [place] [address], [place] [address] December, [facility] [address] [id number] [address] [place] [address], [place] [address] Oct, [facility] [address] [id number] [address] [place] [address], [place] [address] Oct, [facility] [address] [id number] [address] [place] [address], [place] [address] Sep, [facility] [address] [id number] [address] [place] [address], [place] [address] Aug, [facility] [address] [id number] [address] [place] [address], [place] [address] Aug, [facility] [address] [id number] [address] [place] [address], [place] [address] Jul, [facility] [address] [id number] [address] [place] [address], [place] [address] Jul, [facility] [address] [id number] [address] [place] [address], [place] [address] Mar, [facility] [address] [id number] [address] [place] [address], [place] [address] Mar, [facility] [address] [id number] [address] [place] [address], [place] [address] Feb, [facility] [address] [id number] [address] [place] [address], [place] [address] Feb, [facility] [address] [id number] [address] [place] [address], [place] [address] Feb, [facility] [address] [id number] [address] [place] [address], [place] [address] Jan, [facility] [address] [id number] [address] [place] [address], [place] [address] Nov, [facility] [address] [id number] [address] [place] [address], [place] [address] 17 Sep, 2011 [facility] [address] [id number] [address] [place] [address], [place] [address] 15 Sep, 2011 [facility] [address] [id number] 03 [place] [address], [place] [address] Sep, [facility] [address] [id number] [address] [place] [address], [place] [address] Aug, [facility] [address] [id number] [address] [place] [address], [place] [address] Aug, [facility] [address] [id number] [address] [place] [address], [place] [address] Aug, [facility] [address] [id number] [address] [place] [address], [place] [address] Jun, [facility] [address] [id number] [address] [place] [address], [place] [address] Jun, [facility] [address] [id number] [address] [place] [address], [place] [address] Jun, [facility] [address] [id number] [address] [place] [address], [place] [address] Jun, [facility] [address] [id number] [address] [place] [address], [place] [address] May, [facility] [address] [id number] [address] [place] [address], [place] [address] May, [facility] [address] [id number] [address] [place] [address] May, [facility] [address] [id number] [address] [place] [address], [place] [address] May, [facility] [address] [id number] [address] [place] [address], [place] [address] Jun, [facility] [address] [id number] [address] [place] [address], [place] [address] December, [facility] [address] [id number] [facility] [place] [place] [address] May, IMMUNIZATIONS No Known Immunizations SOCIAL HISTORY Never Assessed REASON FOR VISIT PLAN OF CARE VITAL SIGNS Height 64 in 2013-08-07 Weight 144 lbs 2013-08-07 Temperature 97.7 degrees Fahrenheit 2013-08-07 Heart Rate 110 bpm 2013-08-07 Respiratory Rate 20 2013-08-07 Blood pressure systolic 100 mmHg 2013-08-07 Blood pressure diastolic 68 mmHg 2013-08-07 MEDICATIONS No Known Medications RESULTS No Results [...]
--- OUTSIDE RECORDS SUMMARY | 2020-03-17 19:11 | XMS REPORT ---
Author Author Ann Tao Organization [facility] Address [address] [place] [address] Care Team Providers Care Film Or Tape Librarian Name Role Phone MANUEL Tao Unavailable PROBLEMS Type Condition ICD9-CM Code NPO42-IY Code Onset Dates Condition S tatus SNOMED Code Problem Perimenopausal N95.1 Active 82516 [id number] Problem Seasonal allergic rhinitis, unspecified allergic rhinitis trigger J30.2 Active 659912229 Problem Chronic migraine G43.709 Active 377 73430 Problem Anxiety F41.9 Active 58360942 Problem Vitamin D deficiency E55.9 Active 23349739 Problem Essential hypertension I10 Active 73146792 Problem Iron deficiency anemia, unspecified iron deficiency an emia type D50.9 Active 69955299 Problem Carpal tunnel syndrome, bilateral G56.03 Active [id number] Problem Daytime hypersomnia G47.19 Active 08195849794218 Problem Nocturnal dyspnea R06.00 Active 24 4471809 ALLERGIES No Information ENCOUNTERS Encounter Location Date Diagnosis [address] [address] Apr, Chronic migraine G43.709 ; Essential hyp ertension I10 ; Iron deficiency anemia, unspecified iron deficiency anemia type D50.9 and Long-term use of high-risk medication Z79.[address] [address] Feb, Seasonal allergic rhinitis, unspecified allergic rhinitis trigger J30.2 and Chronic migraine G43.[address] [address] Feb, Anxiety F41.[address] [address] Feb, Exposure to pertussis Z20.818 [place] [address] [address] Jan, [place] [address] [address] Jan, Chronic migraine G43.709 and Anxiety F41 .9 [place] [address] [address] December, Anxiety F41.9 [place] [address] [address] Nov, Chronic migraine G43.709 ; Seasonal ivon rgic rhinitis, unspecified allergic rhinitis trigger J30.2 ; Vitamin D deficiency E55.9 ; Nocturnal dyspnea R06.00 ; Daytime hypersomnia G47.19 and Anxiety F41.9 [place] [address] [address] Nov, Chronic migraine G43.709 [place] [address] [address] Oct, [place] [address] [address] Sep, Carpal tunnel syndrome, bilateral G56.03 [place] [address] [address] Sep, Chronic migraine G43.709 [place] [address] [address] Aug, [place] [address] [address] Jul, Seasonal allergic rhinitis, unspecified allergic rhinitis trigger J30.2 [place] [address] [address] Jul, Seasonal allergic rhinitis, unspecified allergic rhinitis trigger J30.2 [place] [address] [address] Jul, Chronic migraine G43.709 [place] [address] [address] Jun, [facility] [address] [id number] May, Dental caries K02.9 [place] [address] [address] May, Chronic migraine G43.709 [place] [address] [address] Apr, Chronic migraine G43.709 ; Iron deficien cy anemia, unspecified iron deficiency anemia type D50.9 ; Perimenopausal N95.1 and Vitamin D deficiency E55.9 [place] [address] [address] Mar, [place] [address] [address] Mar, Seasonal allergic rhinitis, unspecified allergic rhinitis trigger J30.2 [place] [address] [address] Mar, Chronic migraine G43.709 [place] [address] [address] Mar, [place] [address] [address] Mar, Chronic migraine G43.709 ; Irregular men ses N92.6 ; Iron deficiency anemia, unspecified iron deficiency anemia type D50.9 and General medical exam Z00.00 [place] [address] [address] Mar, Chronic migraine G43.709 ; Iron deficien cy anemia, unspecified iron deficiency anemia type D50.9 ; Irregular menses N92.6 and General medical exam Z00.00 [facility] [address] [id number] Feb, Dental examination Z01.20 [place] [address] [address] Feb, Chronic tension-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, intractab le G44.221 and Seasonal allergic rhinitis, unspecified allergic rhinitis trigger J30.2 [facility] [address] [address] Feb, [facility] [address] [address] Jan, Seasonal allergic rhinitis, unspecified allergic rhinitis trigger J30.2 [place] [address] [address] December, Chronic tension-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, intractab le G44.221 [facility] [address] [place] [id number] [place] [id number] December, Dental examination Z01.20 [place] [address] [address] December, [place] [address] [address] Oct, [place] [address] [address] Oct, [facility] [address] [facility] [id number] [address] [place] [address] Oct, Sore throat J02.9 and Season al allergic rhinitis, unspecified allergic rhinitis trigger J30.2 [place] [address] [address] Oct, [place] [address] [address] Sep, [place] [address] [address] Aug, Menstrual periods irregular N92.6 ; [employer] danielle tension-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, 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 ; Acute upper respiratory infection, unspecified J06.9 and Other viral agents as the cause of diseases classified elsewhere B97.89 [place] [address] [address] Jul, [facility] [address] [place] [id number] [place] [address] Jul, [facility] [address] [address] Jul, Migraine without aura and without status migrainosus, not intractable G43.009 [facility] [address] [address] Jun, [facility] [address] [address] May, Migraine without aura and without status migrainosus, not intractable G43.009 [facility] [address] [address] May, [facility] [address] [address] May, [facility] [address] [place] [id number] [place] [id number] Mar, Dental examination Z01.20 [facility] [address] [address] Mar, [facility] [address] [address] Jan, Onychomycosis B35.1 [facility] [address] [address] Jan, [facility] [address] [address] December, Dental caries K02.9 [facility] [address] [address] Nov, Dental examination Z01.20 [facility] [address] [address] Oct, Dental examination Z01.20 [facility] [address] [address] Oct, [facility] [address] [address] Oct, Migraine G43.909 [facility] [address] [address] Sep, Onychomycosis B35.1 [facility] [address] [address] Sep, [facility] [address] [address] Aug, [facility] [address] [address] Jul, [place] [address] [address] Apr, [place] [address] [address] Apr, Right anterior knee pain 719.[address] [address] Mar, Tendonitis 726.90 ; HTN (hypertension) 4 01.9 ; Tremors of nervous system 781.0 and Anxiety [address] [address] Mar, Thrush 112.0 [place] [address] [address] Feb, [place] [address] [address] Feb, Tremors of nervous system 781.0 and Carp al tunnel syndrome 354.0 [facility] [address] [address] Jan, Anxiety 300.00 ; Tremors of nervous syst em 781.0 and Tendonitis 726.90 [place] [address] [address] Jan, Anxiety 300.00 ; Tremors of nervous syst em 781.0 and Tendonitis 726.90 [place] [address] [place] [id number] [place] [address] Jan, Sinusitis 473.9 [facility] [address] [id number] [place] [address] December, [facility] [id number] [place] [address] December, [facility] [id number] [place] [address] December, [facility] [id number] [place] [address] December, [facility] [id number] [place] [address] December, [facility] [address] [id number] [place] [address] Nov, [facility] [id number] [place] [address] Nov, [facility] [id number] [place] [address] Sep, [facility] [id number] [place] [address] Sep, [facility] [id number] [place] [address] Sep, [facility] [address] [id number] [place] [address] Sep, [facility] [address] [address] [id number] [place] [address] Jul, [facility] [id number] [place] [address] Jul, [facility] [address] [id number] [place] [address] Jul, [facility] [id number] [place] [address] Jul, [facility] [address] [id number] [place] [address] Jul, [facility] [address] [facility] [id number] [place] [address] Jul, [facility] [address] [facility] [id number] [place] [address] Jul, [facility] [address] [id number] [place] [address] Jul, [facility] [address] [id number] [place] [address] Jul, [facility] [address] [id number] [place] [address] Jul, [facility] [address] [id number] [place] [address] Jun, [facility] [address] [id number] [place] [address] Jun, [facility] [address] [id number] [place] [address] Jun, [facility] [address] [id number] [place] [address] Jun, [facility] [address] [id number] [place] [address] May, [facility] [address] [id number] [place] [address] May, [facility] [address] [id number] [place] [address] May, [facility] [address] [id number] [place] [address] 14 May, 2014 [facility] [address] [id number] [place] [address] 17 Apr, 2014 [facility] [address] [id number] [place] [address] 17 Apr, 2014 [facility] [address] [id number] [place] [address] Apr, 2013 [facility] [address] [facility] [id number] [place] [address] 17 Apr, 2013 [facility] [address] [id number] [place] [address] 16 Apr, 2014 [facility] [address] [facility] [id number] [place] [address] Apr, [facility] [address] [id number] [place] [address] Apr, [facility] [address] [facility] [id number] [place] [address] Apr, [facility] [address] [id number] [place] [address] Mar, [facility] [address] [id number] [place] [address] Mar, [facility] [address] [id number] [place] [address] Feb, [facility] [address] [id number] [place] [address] Feb, [facility] [address] [id number] [place] [address] Feb, [facility] [address] [id number] [place] [address] Feb, [facility] [address] [id number] [place] [address] Jan, [facility] [address] [id number] [place] [address] Jan, [facility] [address] [id number] [place] [address] Jan, [facility] [address] [id number] [place] [address] Jan, [facility] [address] [id number] [place] [address] Jan, [facility] [address] [id number] [place] [address] Jan, [facility] [address] [id number] [place] [address] December, [facility] [address] [id number] [place] [address] December, [facility] [address] [id number] [place] [address] December, [facility] [address] [id number] [place] [address] December, [facility] [address] [id number] [place] [address] December, [facility] [address] [id number] [place] [address] Nov, [facility] [address] [id number] [place] [address] Nov, [facility] [address] [id number] [place] [address] Nov, [facility] [address] [id number] [place] [address] Nov, [facility] [address] [id number] [place] [address] Nov, [facility] [address] [id number] [place] [address] Nov, [facility] [address] [id number] [place] [address] Oct, [facility] [address] [id number] [place] [address] Oct, [facility] [address] [id number] [place] [address] Oct, [facility] [address] [id number] [place] [address] Oct, [facility] [address] [id number] [place] [address] Sep, [facility] [address] [id number] [place] [address] 14 Sep, 2013 [facility] [address] [id number] [place] [address] Sep, [facility] [address] [id number] [place] [address] Sep, [facility] [address] [id number] [place] [address] Sep, [facility] [address] [id number] [place] [address] Sep, [facility] [address] [id number] [place] [address] Sep, [facility] [address] [id number] [place] [address] Sep, [facility] [address] [id number] [place] [address] Sep, [facility] [address] [id number] [place] [address] Sep, [facility] [address] [id number] [place] [address] Sep, [facility] [address] [id number] [place] [address] Sep, [facility] [address] [id number] [place] [address] Sep, [facility] [address] [id number] [place] [address] Aug, [facility] [address] [id number] [place] [address] Aug, [facility] [address] [id number] [place] [address] Jul, [facility] [address] [id number] [place] [address] Jul, [facility] [address] [id number] [place] [address] Jun, [facility] [address] [facility] [id number] [place] [address] Jun, [facility] [address] [id number] [place] [address] May, [facility] [address] [id number] [place] [address] Apr, [facility] [address] [id number] [place] [address] Mar, [facility] [address] [facility] [id number] [place] [address] Jan, [facility] [address] [id number] [place] [address] December, [facility] [address] [id number] [place] [address] December, [facility] [address] [id number] [place] [address] Oct, [facility] [address] [id number] [place] [address] Oct, [facility] [address] [id number] [place] [address] Sep, [facility] [address] [id number] [place] [address] Aug, [facility] [address] [id number] [place] [address] Aug, [facility] [address] [id number] [place] [address] Jul, [facility] [address] [id number] [place] [address] Jul, [facility] [address] [id number] [place] [address] Mar, [facility] [address] [id number] [place] [address] Mar, [facility] [address] [id number] [place] [address] Feb, [facility] [address] [id number] [place] [address] Feb, [facility] [address] [id number] [place] [address] Feb, [facility] [address] [id number] [place] [address] Jan, [facility] [address] [id number] [place] [address] Nov, [facility] [address] [id number] [place] [address] Sep, [facility] [id number] [place] [address] Sep, [facility] [id number] [place] [address] Sep, [facility] [id number] [place] [address] Aug, [facility] [address] [id number] [place] [address] Aug, [facility] [id number] [place] [address] Aug, [facility] [id number] [place] [address] Jun, [facility] [id number] [place] [address] Jun, [facility] [address] [id number] [place] [address] Jun, [facility] [id number] [place] [address] Jun, [facility] [address] [id number] [place] [address] May, [facility] [id number] [place] [address] May, [facility] [address] [id number] [place] [address] May, [facility] [address] [id number] [place] [address] May, [facility] [address] [id number] [place] [address] Jun, [facility] [address] [id number] [place] [address] December, [facility] [address] [id number] [place] [address] May, IMMUNIZATIONS No Known Immunizations SOCIAL HISTORY [...]
--- OUTSIDE RECORDS SUMMARY | 2020-03-17 19:11 | XMS REPORT ---
Author Author Ann MCHUGH Organization [facility] Address [address] [place] [address] Care Team Providers Care Document Review Attorney Name Role Phone RAFAELA MCHUGH Unavailable PROBLEMS Type Condition ICD9-CM Code EXG18-LA Code Onset Dates Condition S tatus SNOMED Code Problem Perimenopausal N95.1 Active 95873 [id number] Problem Seasonal allergic rhinitis, unspecified allergic rhinitis trigger J30.2 Active 594088146 Problem Chronic migraine G43.709 Active 377 18571 Problem Anxiety F41.9 Active 94659904 Problem Vitamin D deficiency E55.9 Active 87098172 Problem Essential hypertension I10 Active 70994909 Problem Iron deficiency anemia, unspecified iron deficiency an emia type D50.9 Active 16297946 Problem Carpal tunnel syndrome, bilateral G56.03 Active 39244011740414406 Problem Daytime hypersomnia G47.19 Active 30694394387187 Problem Nocturnal dyspnea R06.00 Active 24 7291315 ALLERGIES No Information ENCOUNTERS Encounter Location Date Diagnosis [address] [address] Apr, Chronic migraine G43.709 ; Essential hyp ertension I10 ; Iron deficiency anemia, unspecified iron deficiency anemia type D50.9 and Long-term use of high-risk medication Z79.[address] [address] Feb, Seasonal allergic rhinitis, unspecified allergic rhinitis trigger J30.2 and Chronic migraine G43.[address] [address] Feb, Anxiety F41.[address] [address] Feb, Exposure to pertussis Z20.[address] [id number] [place] [address] Jan, [place] [address] [address] Jan, Chronic migraine G43.709 and Anxiety F41 .9 [place] [address] [address] December, Anxiety F41.9 [place] [address] [address] Nov, Chronic migraine G43.709 ; Seasonal ivon rgic rhinitis, unspecified allergic rhinitis trigger J30.2 ; Vitamin D deficiency E55.9 ; Nocturnal dyspnea R06.00 ; Daytime hypersomnia G47.19 and Anxiety F41.9 [place] [address] [address] Nov, Chronic migraine G43.709 [place] [address] [address] Oct, [place] [address] [address] Sep, Carpal tunnel syndrome, bilateral G56.03 [place] [address] [address] Sep, Chronic migraine G43.709 [place] [address] [address] Aug, [place] [address] [address] Jul, Seasonal allergic rhinitis, unspecified allergic rhinitis trigger J30.2 [place] [address] [address] Jul, Seasonal allergic rhinitis, unspecified allergic rhinitis trigger J30.2 [place] [address] [address] Jul, Chronic migraine G43.709 [place] [address] [address] Jun, [facility] [address] [id number] May, Dental caries K02.9 [place] [address] [address] May, Chronic migraine G43.709 [place] [address] [address] Apr, Chronic migraine G43.709 ; Iron deficien cy anemia, unspecified iron deficiency anemia type D50.9 ; Perimenopausal N95.1 and Vitamin D deficiency E55.9 [place] [address] [address] Mar, [place] [address] [address] Mar, Seasonal allergic rhinitis, unspecified allergic rhinitis trigger J30.2 [place] [address] [address] Mar, Chronic migraine G43.709 [place] [address] [address] Mar, [place] [address] [address] Mar, Chronic migraine G43.709 ; Irregular men ses N92.6 ; Iron deficiency anemia, unspecified iron deficiency anemia type D50.9 and General medical exam Z00.00 [place] [address] [address] Mar, Chronic migraine G43.709 ; Iron deficien cy anemia, unspecified iron deficiency anemia type D50.9 ; Irregular menses N92.6 and General medical exam Z00.00 [facility] [address] [id number] Feb, Dental examination Z01.20 [place] [address] [address] 18 Feb, 2017 Chronic tension-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, intractab le G44.221 and Seasonal allergic rhinitis, unspecified allergic rhinitis trigger J30.2 [facility] [address] [place] [id number] [place] [address] Feb, [facility] [id number] [place] [address] Jan, Seasonal allergic rhinitis, unspecified allergic rhinitis trigger J30.2 [facility] [address] [address] December, Chronic tension-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, intractab le G44.221 [facility] [address] [id number] [place] [id number] December, Dental examination Z01.20 [place] [address] [address] December, [place] [address] [address] Oct, [facility] [address] [address] Oct, [facility] [address] [id number] [address] [place] [address] Oct, Sore throat J02.9 and Season al allergic rhinitis, unspecified allergic rhinitis trigger J30.2 [place] [address] [address] Oct, [facility] [address] [address] Sep, [facility] [address] [address] Aug, Menstrual periods irregular N92.6 ; [employer] danielle tension-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, 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 ; Acute upper respiratory infection, unspecified J06.9 and Other viral agents as the cause of diseases classified elsewhere B97.89 [facility] [address] [address] Jul, [place] [address] [place] [address] Jul, [facility] [address] [address] Jul, Migraine without aura and without status migrainosus, not intractable G43.009 [facility] [address] [address] Jun, [facility] [address] [address] May, Migraine without aura and without status migrainosus, not intractable G43.009 [facility] [address] [address] May, [facility] [address] [address] May, [facility] [address] [id number] [place] [id number] Mar, Dental examination Z01.20 [facility] [address] [address] Mar, [facility] [address] [address] Jan, Onychomycosis B35.1 [facility] [address] [address] Jan, [facility] [address] [address] December, Dental caries K02.9 [facility] [address] [address] Nov, Dental examination Z01.20 [facility] [address] [address] Oct, Dental examination Z01.20 [facility] [address] [address] Oct, [facility] [address] [address] Oct, Migraine G43.909 [facility] [address] [address] Sep, Onychomycosis B35.1 [place] [address] [address] Sep, [facility] [address] [address] Aug, [facility] [address] [address] Jul, [place] [address] [address] Apr, [place] [address] [address] Apr, Right anterior knee pain 719.46 [place] [address] [address] Mar, Tendonitis 726.90 ; HTN (hypertension) 4 01.9 ; Tremors of nervous system 781.0 and Anxiety 300.00 [place] [address] [address] Mar, Thrush 112.0 [place] [address] [address] Feb, [place] [address] [address] Feb, Tremors of nervous system 781.0 and Carp al tunnel syndrome 354.0 [place] [address] [address] Jan, Anxiety 300.00 ; Tremors of nervous syst em 781.0 and Tendonitis 726.90 [place] [address] [address] Jan, Anxiety 300.00 ; Tremors of nervous syst em 781.0 and Tendonitis 726.90 [place] [address] [address] Jan, Sinusitis 473.9 [facility] [address] [id number] [place] [address] December, [facility] [address] [id number] [place] [address] December, [facility] [id number] [place] [address] December, [facility] [address] [id number] [place] [address] December, [facility] [address] [id number] [place] [address] December, [facility] [id number] [place] [address] Nov, [facility] [id number] [place] [address] Nov, [facility] [id number] [place] [address] Sep, [facility] [id number] [place] [address] Sep, [facility] [address] [id number] [place] [address] Sep, [facility] [address] [id number] [place] [address] Sep, [facility] [address] [id number] [place] [address] Jul, [facility] [address] [id number] [place] [address] Jul, [facility] [place] [facility] [address] [id number] [place] [address] Jul, [facility] [place] [facility] [id number] [place] [address] Jul, [facility] [address] [id number] [place] [address] Jul, [facility] [place] [facility] [address] [id number] [place] [address] Jul, [facility] [place] [facility] [address] [id number] [place] [address] Jul, [facility] [place] [facility] [address] [id number] [place] [address] Jul, [facility] [place] [facility] [address] [id number] [place] [address] Jul, [facility] [place] [facility] [address] [id number] [place] [address] Jul, [facility] [place] [facility] [address] [id number] [place] [address] Jun, [facility] [place] [facility] [address] [id number] [place] [address] Jun, [facility] [place] [facility] [address] [id number] [place] [address] Jun, [facility] [place] [facility] [address] [id number] [place] [address] Jun, [facility] [place] [facility] [address] [id number] [place] [address] May, [facility] [place] [facility] [address] [id number] [place] [address] May, [facility] [place] [facility] [address] [id number] [place] [address] May, [facility] [place] [facility] [address] [id number] [place] [address] 14 May, 2014 [facility] [place] [facility] [address] [id number] [place] [address] 17 Apr, 2014 [facility] [place] [facility] [address] [id number] [place] [address] 17 Apr, 2014 [facility] [place] [facility] [address] [id number] [place] [address] Apr, [facility] [place] [facility] [address] [id number] [place] [address] 17 Apr, 2013 [facility] [place] [facility] [address] [id number] [place] [address] Apr, [facility] [place] [facility] [address] [id number] [place] [address] Apr, [facility] [place] [facility] [address] [id number] [place] [address] Apr, 2013 [facility] [place] [facility] [address] [id number] [place] [address] Apr, [facility] [place] [facility] [address] [id number] [place] [address] Mar, [facility] [place] [facility] [address] [id number] [place] [address] Mar, [facility] [place] [facility] [address] [id number] [place] [address] Feb, [facility] [place] [facility] [address] [id number] [place] [address] Feb, [facility] [place] [facility] [address] [id number] [place] [address] Feb, [facility] [place] [facility] [address] [id number] [place] [address] Feb, [facility] [place] [facility] [address] [id number] [place] [address] Jan, [facility] [place] [facility] [address] [id number] [place] [address] Jan, [facility] [place] [facility] [address] [id number] [place] [address] Jan, [facility] [place] [facility] [address] [id number] [place] [address] Jan, [facility] [place] [facility] [address] [id number] [place] [address] Jan, [facility] [place] [facility] [address] [id number] [place] [address] Jan, [facility] [place] [facility] [address] [id number] [place] [address] December, [facility] [place] [facility] [address] [id number] [place] [address] December, [facility] [place] [facility] [address] [id number] [place] [address] December, [facility] [place] [facility] [address] [id number] [place] [address] December, [facility] [place] [facility] [address] [id number] [place] [address] December, [facility] [place] [facility] [address] [id number] [place] [address] Nov, [facility] [place] [facility] [address] [id number] [place] [address] Nov, [facility] [place] [facility] [address] [id number] [place] [address] Nov, [facility] [place] [facility] [address] [id number] [place] [address] Nov, [facility] [place] [facility] [address] [id number] [place] [address] Nov, [facility] [place] [facility] [address] [id number] [place] [address] Nov, [facility] [place] [facility] [address] [id number] [place] [address] Oct, [facility] [place] [facility] [address] [id number] [place] [address] Oct, [facility] [place] [facility] [address] [id number] [place] [address] Oct, [facility] [place] [facility] [address] [id number] [place] [address] Oct, [facility] [place] [facility] [address] [id number] [place] [address] 14 Sep, 2013 [facility] [place] [facility] [address] [id number] [place] [address] Sep, [facility] [place] [facility] [address] [id number] [place] [address] Sep, [facility] [place] [facility] [address] [id number] [place] [address] 10 Sep, 2013 [facility] [place] [facility] [address] [id number] [place] [address] Sep, [facility] [place] [facility] [address] [id number] [place] [address] Sep, 2013 [facility] [place] [facility] [address] [id number] [place] [address] Sep, 2013 [facility] [place] [facility] [address] [id number] [place] [address] Sep, 2013 [facility] [place] [facility] [address] [id number] [place] [address] Sep, [facility] [place] [facility] [address] [id number] [place] [address] Sep, 2013 [facility] [place] [facility] [address] [id number] [place] [address] Sep, [facility] [place] [facility] [address] [id number] [place] [address] Sep, [facility] [place] [facility] [address] [id number] [place] [address] Sep, [facility] [place] [facility] [address] [id number] [place] [address] Aug, [facility] [place] [facility] [address] [id number] [place] [address] Aug, [facility] [place] [facility] [address] [id number] [place] [address] Jul, [facility] [place] [facility] [address] [id number] [place] [address] Jul, [facility] [place] [facility] [address] [id number] [place] [address] Jun, [facility] [place] [facility] [address] [id number] [place] [address] Jun, [facility] [place] [facility] [address] [id number] [place] [address] May, [facility] [place] [facility] [address] [id number] [place] [address] Apr, [facility] [place] [facility] [address] [id number] [place] [address] Mar, [facility] [place] [facility] [address] [id number] [place] [address] Jan, [facility] [place] [facility] [address] [id number] [place] [address] December, [facility] [place] [facility] [address] [id number] [place] [address] December, [facility] [place] [facility] [address] [id number] [place] [address] Oct, [facility] [place] [facility] [address] [id number] [place] [address] Oct, [facility] [place] [facility] [address] [id number] [place] [address] Sep, [facility] [place] [facility] [address] [id number] [place] [address] Aug, [facility] [place] [facility] [address] [id number] [place] [address] Aug, [facility] [place] [facility] [address] [id number] [place] [address] Jul, [facility] [place] [facility] [address] [id number] [place] [address] Jul, [facility] [place] [facility] [address] [id number] [place] [address] Mar, [facility] [place] [facility] [address] [id number] [place] [address] Mar, [facility] [place] [facility] [address] [id number] [place] [address] Feb, [facility] [place] [facility] [address] [id number] [place] [address] Feb, [facility] [place] [facility] [address] [id number] [place] [address] Feb, [facility] [place] [facility] [address] [id number] [place] [address] Jan, [facility] [place] [facility] [address] [id number] [place] [address] Nov, [facility] [place] [facility] [address] [id number] [place] [address] Sep, [facility] [place] [facility] [address] [id number] [place] [address] Sep, [facility] [place] [facility] [address] [id number] [place] [address] Sep, [facility] [place] [facility] [address] [id number] [place] [address] Aug, [facility] [place] [facility] [address] [id number] [place] [address] Aug, [facility] [place] [facility] [address] [id number] [place] [address] Aug, [facility] [place] [facility] [address] [id number] [place] [address] Jun, [facility] [place] [facility] [address] [id number] [place] [address] Jun, [facility] [place] [facility] [address] [id number] [place] [address] Jun, [facility] [address] [id number] [place] [address] Jun, [facility] [address] [id number] [place] [address] May, [facility] [address] [id number] [place] [address] May, [facility] [address] [id number] [place] [address] 18 May, 2011 [facility] [address] [id number] [place] [address] May, [facility] [address] [id number] [place] [address] Jun, [facility] [address] [id number] [place] [address] December, [facility] [address] [id number] [place] [address] May, IMMUNIZATIONS No Known Immunizations SOCIAL HISTORY Never Assessed REASON FOR VISIT PLAN OF CARE VITAL SIGNS Height 64 in 2013-10-12 Weight 145.6 lbs 2013-10-12 Temperature 98.1 degrees Fahrenheit 2013-10-12 Heart Rate 94 bpm 2013-10-12 Respiratory Rate 16 2013-10-12 Blood pressure systolic 128 mmHg 2013-10-12 Blood pressure diastolic 80 mmHg 2013-10-12 MEDICATIONS No Known Medications RESULTS No Results [...]
--- OUTSIDE RECORDS SUMMARY | 2020-03-17 19:11 | XMS REPORT ---
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 Name Role Phone MANUEL Tao Unavailable PROBLEMS Type Condition ICD9-CM Code THQ98-VY Code Onset Dates Condition S tatus SNOMED Code Problem Perimenopausal N95.1 Active 83431 [id number] Problem Seasonal allergic rhinitis, unspecified allergic rhinitis trigger J30.2 Active 302252820 Problem Chronic migraine G43.709 Active 377 12349 Problem Anxiety F41.9 Active 77423307 Problem Vitamin D deficiency E55.9 Active 06001387 Problem Essential hypertension I10 Active 13365366 Problem Iron deficiency anemia, unspecified iron deficiency an emia type D50.9 Active 04024311 Problem Carpal tunnel syndrome, bilateral G56.03 Active [id number] Problem Daytime hypersomnia G47.19 Active 75438848007484 Problem Nocturnal dyspnea R06.00 Active 24 [id number] ALLERGIES No Information ENCOUNTERS Encounter Location Date Diagnosis [address] [address] Apr, Chronic migraine G43.709 ; Essential hyp ertension I10 ; Iron deficiency anemia, unspecified iron deficiency anemia type D50.9 and Long-term use of high-risk medication Z79.[address] [address] Feb, Seasonal allergic rhinitis, unspecified allergic rhinitis trigger J30.2 and Chronic migraine G43.[address] [address] Feb, Anxiety F41.[address] [address] Feb, Exposure to pertussis Z20.818 [place] [address] [address] Jan, [place] [address] [address] Jan, Chronic migraine G43.709 and Anxiety F41 .9 [place] [address] [address] December, Anxiety F41.9 [place] [address] [address] Nov, Chronic migraine G43.709 ; Seasonal ivon rgic rhinitis, unspecified allergic rhinitis trigger J30.2 ; Vitamin D deficiency E55.9 ; Nocturnal dyspnea R06.00 ; Daytime hypersomnia G47.19 and Anxiety F41.9 [place] [address] [address] Nov, Chronic migraine G43.709 [place] [address] [address] Oct, [place] [address] [address] Sep, Carpal tunnel syndrome, bilateral G56.03 [place] [address] [address] Sep, Chronic migraine G43.709 [place] [address] [address] Aug, [place] [address] [address] Jul, Seasonal allergic rhinitis, unspecified allergic rhinitis trigger J30.2 [place] [address] [address] Jul, Seasonal allergic rhinitis, unspecified allergic rhinitis trigger J30.2 [place] [address] [address] Jul, Chronic migraine G43.709 [place] [address] [address] Jun, [facility] [address] [id number] May, Dental caries K02.9 [place] [address] [address] May, Chronic migraine G43.709 [place] [address] [address] Apr, Chronic migraine G43.709 ; Iron deficien cy anemia, unspecified iron deficiency anemia type D50.9 ; Perimenopausal N95.1 and Vitamin D deficiency E55.9 [place] [address] [address] Mar, [place] [address] [address] Mar, Seasonal allergic rhinitis, unspecified allergic rhinitis trigger J30.2 [place] [address] [address] Mar, Chronic migraine G43.709 [place] [address] [address] Mar, [place] [address] [address] Mar, Chronic migraine G43.709 ; Irregular men ses N92.6 ; Iron deficiency anemia, unspecified iron deficiency anemia type D50.9 and General medical exam Z00.00 [place] [address] [address] Mar, Chronic migraine G43.709 ; Iron deficien cy anemia, unspecified iron deficiency anemia type D50.9 ; Irregular menses N92.6 and General medical exam Z00.00 [facility] [address] [id number] Feb, Dental examination Z01.20 [place] [address] [address] Feb, Chronic tension-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, intractab le G44.221 and Seasonal allergic rhinitis, unspecified allergic rhinitis trigger J30.2 [facility] [address] [address] Feb, [facility] [address] [address] Jan, Seasonal allergic rhinitis, unspecified allergic rhinitis trigger J30.2 [place] [address] [address] December, Chronic tension-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, intractab le G44.221 [facility] [address] [place] [id number] [place] [id number] December, Dental examination Z01.20 [place] [address] [address] December, [place] [address] [address] Oct, [place] [address] [address] Oct, [facility] [address] [facility] [id number] [address] [place] [address] Oct, Sore throat J02.9 and Season al allergic rhinitis, unspecified allergic rhinitis trigger J30.2 [place] [address] [address] Oct, [place] [address] [address] Sep, [place] [address] [address] Aug, Menstrual periods irregular N92.6 ; 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, 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 ; Acute upper respiratory infection, unspecified J06.9 and Other viral agents as the cause of diseases classified elsewhere B97.89 [place] [address] [address] Jul, [facility] [address] [place] [id number] [place] [address] Jul, [facility] [address] [address] Jul, Migraine without aura and without status migrainosus, not intractable G43.009 [facility] [address] [address] Jun, [facility] [address] [address] May, Migraine without aura and without status migrainosus, not intractable G43.009 [facility] [address] [address] May, [facility] [address] [address] May, [facility] [id number] [place] [id number] Mar, Dental examination Z01.20 [facility] [address] [address] Mar, [facility] [address] [address] Jan, Onychomycosis B35.1 [facility] [address] [address] Jan, [facility] [address] [address] December, Dental caries K02.9 [facility] [address] [address] Nov, Dental examination Z01.20 [facility] [address] [address] Oct, Dental examination Z01.20 [facility] [address] [address] Oct, [facility] [address] [address] Oct, Migraine G43.909 [facility] [address] [address] Sep, Onychomycosis B35.1 [facility] [address] [address] Sep, [facility] [address] [address] Aug, [facility] [address] [address] Jul, [place] [address] [address] Apr, [place] [address] [address] Apr, Right anterior knee pain 719.[address] [address] Mar, Tendonitis 726.90 ; HTN (hypertension) 4 01.9 ; Tremors of nervous system 781.0 and Anxiety 300.[address] [address] Mar, Thrush 112.0 [place] [address] [address] Feb, [place] [address] [address] Feb, Tremors of nervous system 781.0 and Carp al tunnel syndrome 354.0 [facility] [address] [address] Jan, Anxiety 300.00 ; Tremors of nervous syst em 781.0 and Tendonitis 726.90 [place] [address] [address] Jan, Anxiety 300.00 ; Tremors of nervous syst em 781.0 and Tendonitis 726.90 [place] [address] [place] [id number] [place] [address] Jan, Sinusitis 473.9 [facility] [id number] [place] [address] December, [facility] [id number] [place] [address] December, [facility] [address] [id number] [place] [address] December, [facility] [address] [place] [id number] [place] [address] December, [facility] [address] [place] [id number] [place] [address] December, [facility] [address] [place] [id number] [place] [address] Nov, [facility] [address] [id number] [place] [address] Nov, [facility] [address] [id number] [place] [address] Sep, [facility] [address] [id number] [place] [address] Sep, [facility] [address] [id number] [place] [address] Sep, [facility] [address] [id number] [place] [address] Sep, [facility] [id number] [place] [address] Jul, [facility] [address] [id number] [place] [address] Jul, [facility] [address] [place] [id number] [place] [address] Jul, [facility] [address] [place] [id number] [place] [address] Jul, [facility] [address] [place] [id number] [place] [address] Jul, [facility] [address] [id number] [place] [address] Jul, [facility] [address] [id number] [place] [address] Jul, [facility] [address] [id number] [place] [address] Jul, [facility] [address] [id number] [place] [address] Jul, [facility] [address] [id number] [place] [address] Jul, [facility] [address] [id number] [place] [address] Jun, [facility] [address] [id number] [place] [address] Jun, [facility] [address] [id number] [place] [address] Jun, [facility] [address] [id number] [place] [address] Jun, [facility] [address] [id number] [place] [address] May, [facility] [address] [id number] [place] [address] May, [facility] [address] [id number] [place] [address] May, [facility] [address] [id number] [place] [address] 14 May, 2014 [facility] [address] [id number] [place] [address] 17 Apr, 2014 [facility] [address] [id number] [place] [id number] 17 Apr, 2014 [facility] [address] [id number] [place] [address] Apr, 2013 [facility] [address] [facility] [id number] [place] [address] 17 Apr, 2013 [facility] [address] [id number] [place] [id number] 16 Apr, 2014 [facility] [address] [facility] [id number] [place] [address] Apr, [facility] [address] [id number] [place] [address] Apr, [facility] [address] [facility] [facility] [id number] [place] [address] Apr, [facility] [address] [id number] [place] [address] Mar, [facility] [address] [id number] [place] [address] Mar, [facility] [address] [id number] [place] [address] Feb, [facility] [address] [id number] [place] [address] Feb, [facility] [address] [id number] [place] [address] Feb, [facility] [address] [id number] [place] [address] Feb, [facility] [address] [id number] [place] [address] Jan, [facility] [address] [id number] [place] [address] Jan, [facility] [address] [id number] [place] [address] Jan, [facility] [address] [id number] [place] [address] Jan, [facility] [address] [id number] [place] [address] Jan, [facility] [address] [id number] [place] [address] Jan, [facility] [address] [id number] [place] [address] December, [facility] [address] [id number] [place] [address] December, [facility] [address] [id number] [place] [address] December, [facility] [address] [id number] [place] [address] December, [facility] [address] [id number] [place] [address] December, [facility] [address] [id number] [place] [address] Nov, [facility] [address] [id number] [place] [address] Nov, [facility] [address] [id number] [place] [address] Nov, [facility] [address] [id number] [place] [address] Nov, [facility] [address] [id number] [place] [address] Nov, [facility] [address] [id number] [place] [address] Nov, [facility] [address] [id number] [place] [address] Oct, [facility] [address] [id number] [place] [address] Oct, [facility] [address] [id number] [place] [address] Oct, [facility] [address] [id number] [place] [address] Oct, [facility] [address] [id number] [place] [address] Sep, [facility] [address] [id number] [place] [address] 14 Sep, 2013 [facility] [address] [id number] [place] [address] Sep, [facility] [address] [id number] [place] [address] Sep, [facility] [address] [id number] [place] [address] Sep, [facility] [address] [id number] [place] [address] Sep, [facility] [address] [id number] [place] [address] Sep, [facility] [address] [id number] [place] [address] Sep, [facility] [address] [id number] [place] [address] Sep, [facility] [address] [id number] [place] [address] Sep, [facility] [address] [id number] [place] [address] Sep, [facility] [address] [id number] [place] [address] Sep, [facility] [address] [id number] [place] [address] Sep, [facility] [address] [id number] [place] [address] Aug, [facility] [address] [id number] [place] [address] Aug, [facility] [address] [id number] [place] [address] Jul, [facility] [address] [id number] [place] [address] Jul, [facility] [address] [id number] [place] [address] Jun, [facility] [address] [facility] [facility] [id number] [place] [address] Jun, [facility] [address] [id number] [place] [address] May, [facility] [address] [id number] [place] [address] Apr, [facility] [address] [id number] [place] [address] Mar, [facility] [address] [facility] [id number] [place] [address] Jan, [facility] [address] [id number] [place] [address] December, [facility] [address] [id number] [place] [address] December, [facility] [address] [id number] [place] [address] Oct, [facility] [address] [id number] [place] [address] Oct, [facility] [address] [id number] [place] [address] Sep, [facility] [address] [id number] [place] [address] Aug, [facility] [address] [id number] [place] [address] Aug, [facility] [address] [id number] [place] [address] Jul, [facility] [address] [id number] [place] [address] Jul, [facility] [address] [id number] [place] [address] Mar, [facility] [address] [id number] [place] [address] Mar, [facility] [address] [id number] [place] [address] Feb, [facility] [address] [id number] [place] [address] Feb, [facility] [address] [id number] [place] [address] Feb, [facility] [address] [id number] [place] [address] Jan, [facility] [address] [id number] [place] [address] Nov, [facility] [address] [id number] [place] [address] Sep, [facility] [id number] [place] [address] Sep, [facility] [id number] [place] [address] Sep, [facility] [id number] [place] [address] Aug, [facility] [address] [id number] [place] [address] Aug, [facility] [id number] [place] [address] Aug, [facility] [id number] [place] [address] Jun, [facility] [id number] [place] [address] Jun, [facility] [address] [id number] [place] [address] Jun, [facility] [id number] [place] [address] Jun, [facility] [address] [id number] [place] [address] May, [facility] [id number] [place] [address] May, [facility] [address] [id number] [place] [address] May, [facility] [address] [id number] [place] [address] May, [facility] [address] [id number] [place] [address] Jun, [facility] [address] [id number] [place] [address] December, [facility] [address] [id number] [place] [address] May, IMMUNIZATIONS No Known Immunizations SOCIAL HISTORY [...]
--- OUTSIDE RECORDS SUMMARY | 2020-03-17 19:11 | XMS REPORT ---
Author Author Ann Whitley Doctor Organization [facility] Address Unknown Phone Unavailable Care Team Providers Care Passenger Service Agent Name Role Phone Migration, Doctor Unavailable Unavailable PROBLEMS Type Condition ICD9-CM Code ZIZ74-NS Code Onset Dates Condition S tatus SNOMED Code Problem Perimenopausal N95.1 Active 05265 [id number] Problem Seasonal allergic rhinitis, unspecified allergic rhinitis trigger J30.2 Active 580433141 Problem Chronic migraine G43.709 Active 377 47320 Problem Anxiety F41.9 Active 82029599 Problem Vitamin D deficiency E55.9 Active 47904008 Problem Essential hypertension I10 Active 91371537 Problem Iron deficiency anemia, unspecified iron deficiency an emia type D50.9 Active 80413820 Problem Carpal tunnel syndrome, bilateral G56.03 Active [id number] Problem Daytime hypersomnia G47.19 Active [id number] Problem Nocturnal dyspnea R06.00 Active 24 0519097 ALLERGIES No Information ENCOUNTERS Encounter Location Date Diagnosis [place] [address] [address] Apr, Chronic migraine G43.709 ; Essential hyp ertension I10 ; Iron deficiency anemia, unspecified iron deficiency anemia type D50.9 and Long-term use of high-risk medication Z79.899 [place] [address] [address] Feb, Seasonal allergic rhinitis, unspecified allergic rhinitis trigger J30.2 and Chronic migraine G43.709 [place] [address] [address] Feb, Anxiety F41.9 [place] [address] [address] Feb, Exposure to pertussis Z20.818 [place] [address] [address] Jan, [facility] [address] [address] Jan, Chronic migraine G43.709 and Anxiety F41 .9 [facility] [address] [address] December, Anxiety F41.9 [facility] [address] [address] Nov, Chronic migraine G43.709 ; Seasonal ivon rgic rhinitis, unspecified allergic rhinitis trigger J30.2 ; Vitamin D deficiency E55.9 ; Nocturnal dyspnea R06.00 ; Daytime hypersomnia G47.19 and Anxiety F41.9 [facility] [address] [address] Nov, Chronic migraine G43.709 [facility] [address] [address] Oct, [facility] [address] [address] Sep, Carpal tunnel syndrome, bilateral G56.03 [facility] [address] [address] Sep, Chronic migraine G43.709 [facility] [address] [address] Aug, [facility] [address] [address] Jul, Seasonal allergic rhinitis, unspecified allergic rhinitis trigger J30.2 [facility] [address] [address] Jul, Seasonal allergic rhinitis, unspecified allergic rhinitis trigger J30.2 [facility] [address] [address] Jul, Chronic migraine G43.709 [facility] [address] [address] Jun, [facility] [address] [id number] May, Dental caries K02.9 [place] [address] [address] May, Chronic migraine G43.709 [place] [address] [address] Apr, Chronic migraine G43.709 ; Iron deficien cy anemia, unspecified iron deficiency anemia type D50.9 ; Perimenopausal N95.1 and Vitamin D deficiency E55.9 [place] [address] [address] Mar, [place] [address] [address] Mar, Seasonal allergic rhinitis, unspecified allergic rhinitis trigger J30.2 [place] [address] [address] Mar, Chronic migraine G43.709 [place] [address] [address] Mar, [place] [address] [address] Mar, Chronic migraine G43.709 ; Irregular men ses N92.6 ; Iron deficiency anemia, unspecified iron deficiency anemia type D50.9 and General medical exam Z00.00 [place] [address] [address] Mar, Chronic migraine G43.709 ; Iron deficien cy anemia, unspecified iron deficiency anemia type D50.9 ; Irregular menses N92.6 and General medical exam Z00.00 [facility] [address] [id number] Feb, Dental examination Z01.20 [place] [address] [address] 18 Feb, 2017 Chronic tension-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, intractab le G44.221 and Seasonal allergic rhinitis, unspecified allergic rhinitis trigger J30.2 [facility] [address] [place] [id number] [place] [address] Feb, [facility] [address] [address] Jan, Seasonal allergic rhinitis, unspecified allergic rhinitis trigger J30.2 [facility] [address] [place] [id number] [place] [address] December, Chronic tension-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, intractab le G44.221 [facility] [address] [id number] [place] [id number] December, Dental examination Z01.20 [place] [address] [address] December, [facility] [address] [address] Oct, [facility] [address] [address] Oct, [facility] [address] [facility] [id number] [place] [address] Oct, Sore throat J02.9 and Season al allergic rhinitis, unspecified allergic rhinitis trigger J30.2 [facility] [address] [place] [id number] [place] [address] Oct, [facility] [address] [address] Sep, [facility] [address] [address] Aug, Menstrual periods irregular N92.6 ; [employer] danielle tension-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, 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 ; Acute upper respiratory infection, unspecified J06.9 and Other viral agents as the cause of diseases classified elsewhere B97.89 [facility] [address] [address] Jul, [facility] [address] [address] Jul, [place] [address] [place] [id number] [place] [address] Jul, Migraine without aura and without status migrainosus, not intractable G43.009 [facility] [address] [place] [id number] [place] [address] Jun, [facility] [address] [address] May, Migraine without aura and without status migrainosus, not intractable G43.009 [facility] [address] [address] May, [facility] [address] [address] May, [facility] [address] [id number] [place] [id number] Mar, Dental examination Z01.20 [facility] [address] [address] Mar, [facility] [address] [address] Jan, Onychomycosis B35.1 [facility] [address] [address] Jan, [facility] [address] [address] December, Dental caries K02.9 [facility] [address] [address] Nov, Dental examination Z01.20 [facility] [address] [address] Oct, Dental examination Z01.20 [facility] [address] [address] Oct, [facility] [address] [address] Oct, Migraine G43.909 [facility] [address] [address] Sep, Onychomycosis B35.1 [facility] [address] [address] Sep, [facility] [address] [address] Aug, [facility] [address] [address] Jul, [facility] [address] [address] Apr, [facility] [address] [address] Apr, Right anterior knee pain 719.46 [place] [address] [address] Mar, Tendonitis 726.90 ; HTN (hypertension) 4 01.9 ; Tremors of nervous system 781.0 and Anxiety 300.00 [place] [address] [address] Mar, Thrush 112.0 [place] [address] [address] Feb, [place] [address] [address] Feb, Tremors of nervous system 781.0 and Carp al tunnel syndrome 354.0 [place] [address] [address] Jan, Anxiety 300.00 ; Tremors of nervous syst em 781.0 and Tendonitis 726.90 [place] [address] [address] Jan, Anxiety 300.00 ; Tremors of nervous syst em 781.0 and Tendonitis 726.90 [place] [address] [address] Jan, Sinusitis 473.9 [place] [address] [id number] [place] [address] December, [facility] [address] [id number] [place] [address] December, [facility] [address] [id number] [place] [address] December, [facility] [address] [id number] [place] [address] December, [facility] [address] [id number] [place] [address] December, [facility] [address] [id number] [place] [address] Nov, [facility] [address] [id number] [place] [address] Nov, [facility] [address] [id number] [place] [address] Sep, [facility] [address] [id number] [place] [address] Sep, [facility] [address] [id number] [place] [address] Sep, [facility] [address] [id number] [place] [address] Sep, [facility] [address] [id number] [place] [address] Jul, [facility] [address] [id number] [place] [address] Jul, [facility] [address] [id number] [place] [address] Jul, [facility] [address] [id number] [place] [address] Jul, [facility] [address] [id number] [place] [address] Jul, [facility] [address] [id number] [place] [address] Jul, [facility] [address] [facility] 2] [id number] [place] [address] Jul, [facility] [address] [facility] 2] [id number] [place] [address] Jul, [facility] [address] [id number] [place] [address] Jul, [facility] [address] [id number] [place] [address] Jul, [facility] [address] [facility] 2] [id number] [place] [address] Jun, [facility] [address] [id number] [place] [address] Jun, [facility] [address] [id number] [place] [address] Jun, [facility] [address] [id number] [place] [address] Jun, [facility] [address] [id number] [place] [address] May, [facility] [address] [id number] [place] [address] May, [facility] [address] [id number] [place] [address] May, [facility] [address] [id number] [place] [address] May, [facility] [address] [id number] [place] [address] Apr, [facility] [address] [id number] [place] [address] 17 Apr, 2014 [facility] [address] [id number] [place] [address] Apr, [facility] [address] [id number] [place] [address] Apr, 2013 [facility] [address] [id number] [place] [address] 16 Apr, 2013 [facility] [address] [id number] [place] [address] Apr, [facility] [address] [id number] [place] [address] Apr, [facility] [address] [id number] [place] [address] Apr, [facility] [address] [id number] [place] [address] Mar, [facility] [address] [facility] 2] [id number] [place] [address] Mar, [facility] [address] [id number] [place] [address] Feb, [facility] [address] [id number] [place] [address] Feb, [facility] [address] [id number] [place] [address] Feb, [facility] [address] [id number] [place] [address] Feb, [facility] [address] [id number] [place] [address] Jan, [facility] [address] [id number] [place] [address] Jan, [facility] [address] [id number] [place] [address] Jan, [facility] [address] [id number] [place] [address] Jan, [facility] [address] [id number] [place] [address] Jan, [facility] [address] [id number] [place] [address] Jan, [facility] [address] [id number] [place] [address] December, [facility] [address] [id number] [place] [address] December, [facility] [address] [id number] [place] [address] December, [facility] [address] [id number] [place] [address] December, [facility] [address] [id number] [place] [address] December, [facility] [address] [id number] [place] [address] Nov, [facility] [address] [id number] [place] [address] Nov, [facility] [address] [id number] [place] [address] Nov, [facility] [address] [id number] [place] [address] Nov, [facility] [address] [id number] [place] [address] Nov, [facility] [address] [id number] [place] [address] Nov, [facility] [address] [id number] [place] [address] Oct, [facility] [address] [id number] [place] [address] Oct, [facility] [address] [id number] [place] [address] Oct, [facility] [address] [id number] [place] [address] Oct, [facility] [address] [id number] [place] [address] Sep, [facility] [address] [id number] [place] [address] Sep, [facility] [address] [id number] [place] [address] Sep, [facility] [address] [id number] [place] [address] Sep, [facility] [address] [id number] [place] [address] Sep, [facility] [address] [id number] [place] [address] Sep, [facility] [address] [id number] [place] [address] Sep, [facility] [address] [id number] [place] [address] Sep, [facility] [address] [id number] [place] [address] Sep, [facility] [address] [id number] [place] [address] Sep, [facility] [address] [id number] [place] [address] Sep, [facility] [address] [id number] [place] [address] Sep, [facility] [address] [id number] [place] [address] Sep, [facility] [address] [id number] [place] [address] Aug, [facility] [address] [id number] [place] [address] Aug, [facility] [address] [id number] [place] [address] Jul, [facility] [address] [id number] [place] [address] Jul, [facility] [address] [id number] [place] [address] Jun, [facility] [id number] [place] [address] Jun, [facility] [address] [id number] [place] [address] May, [facility] [address] [id number] [place] [address] Apr, [facility] [address] [id number] [place] [address] Mar, [facility] [address] [id number] [place] [address] Jan, [facility] [address] [id number] [place] [address] December, [facility] [address] [id number] [place] [address] December, [facility] [address] [id number] [place] [address] Oct, [facility] [id number] [place] [address] Oct, [facility] [address] [id number] [place] [address] Sep, [facility] [address] [id number] [place] [address] Aug, [facility] [address] [id number] [place] [address] Aug, [facility] [address] [id number] [place] [address] Jul, [facility] [address] [id number] [place] [address] Jul, [facility] [address] [id number] [place] [address] Mar, [facility] [address] [id number] [place] [address] Mar, [facility] [address] [id number] [place] [address] Feb, [facility] [address] [id number] [place] [address] Feb, [facility] [address] [id number] [place] [address] Feb, [facility] [address] [id number] [place] [address] Jan, [facility] [address] [id number] [place] [address] Nov, [facility] [address] [id number] [place] [address] Sep, [facility] [address] [id number] [place] [address] Sep, [facility] [address] [id number] [place] [address] Sep, [facility] [address] [id number] [place] [address] Aug, [facility] [address] [id number] [place] [address] Aug, [facility] [address] [id number] [place] [address] Aug, [facility] [id number] [place] [address] Jun, [facility] [address] [id number] [place] [address] Jun, [facility] [id number] [place] [address] Jun, [facility] [address] [id number] [place] [address] Jun, [facility] [id number] [place] [address] May, [facility] [address] [id number] [place] [address] May, [facility] [address] [id number] [place] [address] May, [facility] [address] [id number] [place] [address] May, [facility] [address] [id number] [place] [address] Jun, [facility] [address] [id number] [place] [address] December, [facility] [address] [id number] [place] [address] May, IMMUNIZATIONS No Known Immunizations SOCIAL HISTORY Never Assessed REASON FOR VISIT PLAN OF CARE VITAL SIGNS Height 64 in 2013-09-11 Weight 142 lbs 2013-09-11 Temperature 97.7 degrees Fahrenheit 2013-09-11 Heart Rate 88 bpm 2013-09-11 Respiratory Rate 18 2013-09-11 Blood pressure systolic 120 mmHg 2013-09-11 Blood pressure diastolic 70 mmHg 2013-09-11 MEDICATIONS No Known Medications RESULTS No Results [...]
--- OUTSIDE RECORDS SUMMARY | 2020-03-17 19:11 | XMS REPORT ---
Author Author Ann MCHUGH Organization [facility] Address [address] [place] [address] Care Team Providers Care Pulpwood Cutter Name Role Phone RAFAELA MCHUGH Unavailable PROBLEMS Type Condition ICD9-CM Code [id number] Code Onset Dates Condition S tatus SNOMED Code Problem Perimenopausal N95.1 Active 10099 [id number] Problem Seasonal allergic rhinitis, unspecified allergic rhinitis trigger J30.2 Active 588577974 Problem Chronic migraine G43.709 Active 377 16296 Problem Anxiety F41.9 Active 68775387 Problem Vitamin D deficiency E55.9 Active 68429595 Problem Essential hypertension I10 Active 24196664 Problem Iron deficiency anemia, unspecified iron deficiency an emia type D50.9 Active 57050149 Problem Carpal tunnel syndrome, bilateral G56.03 Active [id number] Problem Daytime hypersomnia G47.19 Active 42014976743881 Problem Nocturnal dyspnea R06.00 Active 24 5385917 ALLERGIES No Information ENCOUNTERS Encounter Location Date Diagnosis [address] [address] Apr, Chronic migraine G43.709 ; Essential hyp ertension I10 ; Iron deficiency anemia, unspecified iron deficiency anemia type D50.9 and Long-term use of high-risk medication Z79.[address] [address] Feb, Seasonal allergic rhinitis, unspecified allergic rhinitis trigger J30.2 and Chronic migraine G43.[address] [address] Feb, Anxiety F41.[address] [address] Feb, Exposure to pertussis Z20.[address] [id number] [place] [address] Jan, [place] [address] [address] Jan, Chronic migraine G43.709 and Anxiety F41 .9 [place] [address] [address] December, Anxiety F41.9 [place] [address] [address] Nov, Chronic migraine G43.709 ; Seasonal ivon rgic rhinitis, unspecified allergic rhinitis trigger J30.2 ; Vitamin D deficiency E55.9 ; Nocturnal dyspnea R06.00 ; Daytime hypersomnia G47.19 and Anxiety F41.9 [place] [address] [address] Nov, Chronic migraine G43.709 [place] [address] [address] Oct, [place] [address] [address] Sep, Carpal tunnel syndrome, bilateral G56.03 [place] [address] [address] Sep, Chronic migraine G43.709 [place] [address] [address] Aug, [place] [address] [address] Jul, Seasonal allergic rhinitis, unspecified allergic rhinitis trigger J30.2 [place] [address] [address] Jul, Seasonal allergic rhinitis, unspecified allergic rhinitis trigger J30.2 [place] [address] [address] Jul, Chronic migraine G43.709 [place] [address] [address] Jun, [facility] [address] [id number] May, Dental caries K02.9 [place] [address] [address] May, Chronic migraine G43.709 [place] [address] [address] Apr, Chronic migraine G43.709 ; Iron deficien cy anemia, unspecified iron deficiency anemia type D50.9 ; Perimenopausal N95.1 and Vitamin D deficiency E55.9 [place] [address] [address] Mar, [place] [address] [address] Mar, Seasonal allergic rhinitis, unspecified allergic rhinitis trigger J30.2 [place] [address] [address] Mar, Chronic migraine G43.709 [place] [address] [address] Mar, [place] [address] [address] Mar, Chronic migraine G43.709 ; Irregular men ses N92.6 ; Iron deficiency anemia, unspecified iron deficiency anemia type D50.9 and General medical exam Z00.00 [place] [address] [address] Mar, Chronic migraine G43.709 ; Iron deficien cy anemia, unspecified iron deficiency anemia type D50.9 ; Irregular menses N92.6 and General medical exam Z00.00 [facility] [address] [id number] Feb, Dental examination Z01.20 [place] [address] [address] 18 Feb, 2017 Chronic tension-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, intractab le G44.221 and Seasonal allergic rhinitis, unspecified allergic rhinitis trigger J30.2 [facility] [address] [place] [id number] [place] [address] Feb, [facility] [address] [place] [address] [id number] [place] [address] Jan, Seasonal allergic rhinitis, unspecified allergic rhinitis trigger J30.2 [facility] [address] [address] December, Chronic tension-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, intractab le G44.221 [facility] [address] [id number] [place] [id number] December, Dental examination Z01.20 [place] [address] [address] December, [place] [address] [address] Oct, [facility] [address] [address] Oct, [facility] [address] [facility] [id number] [address] [place] [address] Oct, Sore throat J02.9 and Season al allergic rhinitis, unspecified allergic rhinitis trigger J30.2 [place] [address] [address] Oct, [facility] [address] [address] Sep, [facility] [address] [address] Aug, Menstrual periods irregular N92.6 ; [employer]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, 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 ; Acute upper respiratory infection, unspecified J06.9 and Other viral agents as the cause of diseases classified elsewhere B97.89 [facility] [address] [address] Jul, [place] [address] [place] [address] Jul, [facility] [address] [address] Jul, Migraine without aura and without status migrainosus, not intractable G43.009 [facility] [address] [address] Jun, [facility] [address] [address] May, Migraine without aura and without status migrainosus, not intractable G43.009 [facility] [address] [address] May, [facility] [address] [address] May, [facility] [address] [id number] [place] [id number] Mar, Dental examination Z01.20 [facility] [address] [address] Mar, [facility] [address] [address] Jan, Onychomycosis B35.1 [facility] [address] [address] Jan, [facility] [address] [address] December, Dental caries K02.9 [facility] [address] [address] Nov, Dental examination Z01.20 [facility] [address] [address] Oct, Dental examination Z01.20 [facility] [address] [address] Oct, [facility] [address] [address] Oct, Migraine G43.909 [facility] [address] [address] Sep, Onychomycosis B35.1 [place] [address] [address] Sep, [facility] [address] [address] Aug, [facility] [address] [address] Jul, [place] [address] [address] Apr, [place] [address] [address] Apr, Right anterior knee pain 719.46 [place] [address] [address] Mar, Tendonitis 726.90 ; HTN (hypertension) 4 01.9 ; Tremors of nervous system 781.0 and Anxiety 300.00 [place] [address] [address] Mar, Thrush 112.0 [place] [address] [address] Feb, [place] [address] [address] Feb, Tremors of nervous system 781.0 and Carp al tunnel syndrome 354.0 [place] [address] [address] Jan, Anxiety 300.00 ; Tremors of nervous syst em 781.0 and Tendonitis 726.90 [place] [address] [address] Jan, Anxiety 300.00 ; Tremors of nervous syst em 781.0 and Tendonitis 726.90 [place] [address] [address] Jan, Sinusitis 473.9 [facility] [address] [id number] [place] [address] December, [facility] [address] [place] [id number] [place] [address] December, [facility] [address] [place] [id number] [place] [address] December, [facility] [address] [place] [id number] [place] [address] December, [facility] [address] [place] [id number] [place] [address] December, [facility] [address] [place] [id number] [place] [address] Nov, [facility] [address] [place] [id number] [place] [address] Nov, [facility] [address] [place] [id number] [place] [address] Sep, [facility] [address] [place] [id number] [place] [address] Sep, [facility] [address] [place] [id number] [place] [address] Sep, [facility] [address] [place] [id number] [place] [address] Sep, [facility] [address] [place] [id number] [place] [address] Jul, [facility] [address] [id number] [place] [address] Jul, [facility] [place] [facility] [address] [place] [id number] [place] [address] Jul, [facility] [place] [facility] [address] [place] [id number] [place] [address] Jul, [facility] [address] [place] [id number] [place] [address] Jul, [facility] [place] [facility] [address] [id number] [place] [address] Jul, [facility] [place] [facility] [address] [id number] [place] [address] Jul, [facility] [place] [facility] [address] [id number] [place] [address] Jul, [facility] [place] [facility] [address] [id number] [place] [address] Jul, [facility] [place] [facility] [address] [id number] [place] [address] Jul, [facility] [place] [facility] [address] [id number] [place] [address] Jun, [facility] [place] [facility] [address] [id number] [place] [address] Jun, [facility] [place] [facility] [address] [id number] [place] [address] Jun, [facility] [place] [facility] [address] [id number] [place] [address] Jun, [facility] [place] [facility] [address] [id number] [place] [address] May, [facility] [place] [facility] [address] [id number] [place] [address] May, [facility] [place] [facility] [address] [id number] [place] [address] May, [facility] [place] [facility] [address] [id number] [place] [address] 14 May, 2014 [facility] [place] [facility] [address] [id number] [place] [address] 17 Apr, 2014 [facility] [place] [facility] [address] [id number] [place] [address] 17 Apr, 2014 [facility] [place] [facility] [address] [id number] [place] [address] Apr, [facility] [place] [facility] [address] [id number] [place] [address] 17 Apr, 2013 [facility] [place] [facility] [address] [facility] [id number] [place] [address] Apr, [facility] [place] [facility] [address] [facility] [id number] [place] [address] Apr, [facility] [place] [facility] [address] [id number] [place] [address] Apr, 2013 [facility] [place] [facility] [address] [facility] [id number] [place] [address] Apr, [facility] [place] [facility] [address] [facility] [id number] [place] [address] Mar, [facility] [place] [facility] [address] [id number] [place] [address] Mar, [facility] [place] [facility] [address] [id number] [place] [address] Feb, [facility] [place] [facility] [address] [id number] [place] [address] Feb, [facility] [place] [facility] [address] [id number] [place] [address] Feb, [facility] [place] [facility] [address] [id number] [place] [address] Feb, [facility] [place] [facility] [address] [id number] [place] [address] Jan, [facility] [place] [facility] [address] [id number] [place] [address] Jan, [facility] [place] [facility] [address] [id number] [place] [address] Jan, [facility] [place] [facility] [address] [id number] [place] [address] Jan, [facility] [place] [facility] [address] [id number] [place] [address] Jan, [facility] [place] [facility] [address] [id number] [place] [address] Jan, [facility] [place] [facility] [address] [id number] [place] [address] December, [facility] [place] [facility] [address] [facility] [id number] [place] [address] December, [facility] [place] [facility] [address] [facility] [id number] [place] [address] December, [facility] [place] [facility] [address] [id number] [place] [address] December, [facility] [place] [facility] [address] [id number] [place] [address] December, [facility] [place] [facility] [address] [facility] [id number] [place] [address] Nov, [facility] [place] [facility] [address] [id number] [place] [address] Nov, [facility] [place] [facility] [address] [id number] [place] [address] Nov, [facility] [place] [facility] [address] [id number] [place] [address] Nov, [facility] [place] [facility] [address] [id number] [place] [address] Nov, [facility] [place] [facility] [address] [id number] [place] [address] Nov, [facility] [place] [facility] [address] [id number] [place] [address] Oct, [facility] [place] [facility] [address] [id number] [place] [address] Oct, [facility] [place] [facility] [address] [facility] [id number] [place] [address] Oct, [facility] [place] [facility] [address] [id number] [place] [address] Oct, [facility] [place] [facility] [address] [id number] [place] [address] 14 Sep, 2013 [facility] [place] [facility] [address] [id number] [place] [address] Sep, [facility] [place] [facility] [address] [id number] [place] [address] Sep, [facility] [place] [facility] [address] [id number] [place] [address] 10 Sep, 2013 [facility] [place] [facility] [address] [id number] [place] [address] Sep, [facility] [place] [facility] [address] [id number] [place] [address] Sep, 2013 [facility] [place] [facility] [address] [id number] [place] [address] Sep, 2013 [facility] [place] [facility] [address] [id number] [place] [address] Sep, 2013 [facility] [place] [facility] [address] [id number] [place] [address] Sep, [facility] [place] [facility] [address] [id number] [place] [address] Sep, 2013 [facility] [place] [facility] [address] [id number] [place] [address] Sep, [facility] [place] [facility] [address] [id number] [place] [address] Sep, [facility] [place] [facility] [address] [id number] [place] [address] Sep, [facility] [place] [facility] [address] [id number] [place] [address] Aug, [facility] [place] [facility] [address] [id number] [place] [address] Aug, [facility] [place] [facility] [address] [id number] [place] [address] Jul, [facility] [place] [facility] [address] [id number] [place] [address] Jul, [facility] [place] [facility] [address] [id number] [place] [address] Jun, [facility] [place] [facility] [address] [id number] [place] [address] Jun, [facility] [place] [facility] [address] [id number] [place] [address] May, [facility] [place] [facility] [address] [id number] [place] [address] Apr, [facility] [place] [facility] [address] [id number] [place] [address] Mar, [facility] [place] [facility] [address] [id number] [place] [address] Jan, [facility] [place] [facility] [address] [id number] [place] [address] December, [facility] [place] [facility] [address] [id number] [place] [address] December, [facility] [place] [facility] [address] [id number] [place] [address] Oct, [facility] [place] [facility] [address] [id number] [place] [address] Oct, [facility] [place] [facility] [address] [id number] [place] [address] Sep, [facility] [place] [facility] [address] [id number] [place] [address] Aug, [facility] [place] [facility] [address] [id number] [place] [address] Aug, [facility] [place] [facility] [address] [id number] [place] [address] Jul, [facility] [place] [facility] [address] [id number] [place] [address] Jul, [facility] [place] [facility] [address] [id number] [place] [address] Mar, [facility] [place] [facility] [address] [id number] [place] [address] Mar, [facility] [place] [facility] [address] [id number] [place] [address] Feb, [facility] [place] [facility] [address] [id number] [place] [address] Feb, [facility] [place] [facility] [address] [id number] [place] [address] Feb, [facility] [place] [facility] [address] [id number] [place] [address] Jan, [facility] [place] [facility] [address] [id number] [place] [address] Nov, [facility] [place] [facility] [address] [facility] [id number] [place] [address] Sep, [facility] [place] [facility] [address] [id number] [place] [address] Sep, [facility] [place] [facility] [address] [id number] [place] [address] Sep, [facility] [place] [facility] [address] [id number] [place] [address] Aug, [facility] [place] [facility] [address] [id number] [place] [address] Aug, [facility] [place] [facility] [address] [id number] [place] [address] Aug, [facility] [place] [facility] [address] [id number] [place] [address] Jun, [facility] [place] [facility] [address] [id number] [place] [address] Jun, [facility] [place] [facility] [address] [id number] [place] [address] Jun, [facility] [place] [facility] [address] [id number] [place] [address] Jun, [facility] [place] [facility] [address] [id number] [place] [address] May, [facility] [place] [facility] [address] [id number] [place] [address] May, [facility] [place] [facility] [address] [id number] [place] [address] 18 May, 2011 [facility] [address] [id number] [place] [address] May, [facility] [address] [id number] [place] [address] Jun, [facility] [address] [id number] [place] [address] December, [facility] [address] [id number] [place] [address] May, IMMUNIZATIONS No Known Immunizations SOCIAL HISTORY [...]
--- OUTSIDE RECORDS SUMMARY | 2020-03-17 19:12 | XMS REPORT ---
Author Author Ann Tao Organization [facility] Address [address] [place] [address] Care Team Providers Care Biblical Languages Professor Name Role Phone MANUEL Tao Unavailable PROBLEMS Type Condition ICD9-CM Code FGY52-JE Code Onset Dates Condition S tatus SNOMED Code Problem Perimenopausal N95.1 Active 64857 [id number] Problem Seasonal allergic rhinitis, unspecified allergic rhinitis trigger J30.2 Active 054900574 Problem Chronic migraine G43.709 Active 377 08659 Problem Anxiety F41.9 Active 92079492 Problem Vitamin D deficiency E55.9 Active 62991729 Problem Essential hypertension I10 Active 91015076 Problem Iron deficiency anemia, unspecified iron deficiency an emia type D50.9 Active 59048899 Problem Carpal tunnel syndrome, bilateral G56.03 Active [id number] Problem Daytime hypersomnia G47.19 Active 31654425026999 Problem Nocturnal dyspnea R06.00 Active 24 1054066 ALLERGIES No Information ENCOUNTERS Encounter Location Date Diagnosis [address] [address] Apr, Chronic migraine G43.709 ; Essential hyp ertension I10 ; Iron deficiency anemia, unspecified iron deficiency anemia type D50.9 and Long-term use of high-risk medication Z79.[address] [address] Feb, Seasonal allergic rhinitis, unspecified allergic rhinitis trigger J30.2 and Chronic migraine G43.[address] [address] Feb, Anxiety F41.[address] [address] Feb, Exposure to pertussis Z20.818 [place] [address] [address] Jan, [place] [address] [address] Jan, Chronic migraine G43.709 and Anxiety F41 .9 [place] [address] [address] December, Anxiety F41.9 [place] [address] [address] Nov, Chronic migraine G43.709 ; Seasonal ivon rgic rhinitis, unspecified allergic rhinitis trigger J30.2 ; Vitamin D deficiency E55.9 ; Nocturnal dyspnea R06.00 ; Daytime hypersomnia G47.19 and Anxiety F41.9 [place] [address] [address] Nov, Chronic migraine G43.709 [place] [address] [address] Oct, [place] [address] [address] Sep, Carpal tunnel syndrome, bilateral G56.03 [place] [address] [address] Sep, Chronic migraine G43.709 [place] [address] [address] Aug, [place] [address] [address] Jul, Seasonal allergic rhinitis, unspecified allergic rhinitis trigger J30.2 [place] [address] [address] Jul, Seasonal allergic rhinitis, unspecified allergic rhinitis trigger J30.2 [place] [address] [address] Jul, Chronic migraine G43.709 [place] [address] [address] Jun, [facility] [address] [id number] May, Dental caries K02.9 [place] [address] [address] May, Chronic migraine G43.709 [place] [address] [address] Apr, Chronic migraine G43.709 ; Iron deficien cy anemia, unspecified iron deficiency anemia type D50.9 ; Perimenopausal N95.1 and Vitamin D deficiency E55.9 [place] [address] [address] Mar, [place] [address] [address] Mar, Seasonal allergic rhinitis, unspecified allergic rhinitis trigger J30.2 [place] [address] [address] Mar, Chronic migraine G43.709 [place] [address] [address] Mar, [place] [address] [address] Mar, Chronic migraine G43.709 ; Irregular men ses N92.6 ; Iron deficiency anemia, unspecified iron deficiency anemia type D50.9 and General medical exam Z00.00 [place] [address] [address] Mar, Chronic migraine G43.709 ; Iron deficien cy anemia, unspecified iron deficiency anemia type D50.9 ; Irregular menses N92.6 and General medical exam Z00.00 [facility] [address] [id number] Feb, Dental examination Z01.20 [place] [address] [address] Feb, Chronic tension-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, intractab le G44.221 and Seasonal allergic rhinitis, unspecified allergic rhinitis trigger J30.2 [facility] [address] [address] Feb, [facility] [address] [address] Jan, Seasonal allergic rhinitis, unspecified allergic rhinitis trigger J30.2 [place] [address] [address] December, Chronic tension-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, intractab le G44.221 [facility] [address] [place] [id number] [place] [id number] December, Dental examination Z01.20 [place] [address] [address] December, [place] [address] [address] Oct, [place] [address] [address] Oct, [facility] [address] [facility] [id number] [address] [place] [address] Oct, Sore throat J02.9 and Season al allergic rhinitis, unspecified allergic rhinitis trigger J30.2 [place] [address] [address] Oct, [place] [address] [address] Sep, [place] [address] [address] Aug, Menstrual periods irregular N92.6 ; Ship Loader danielle tension-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, 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 ; Acute upper respiratory infection, unspecified J06.9 and Other viral agents as the cause of diseases classified elsewhere B97.89 [place] [address] [address] Jul, [facility] [address] [place] [id number] [place] [address] Jul, [facility] [address] [address] Jul, Migraine without aura and without status migrainosus, not intractable G43.009 [facility] [address] [address] Jun, [facility] [address] [address] May, Migraine without aura and without status migrainosus, not intractable G43.009 [facility] [address] [address] May, [facility] [address] [address] May, [facility] [address] [place] [id number] [place] [id number] Mar, Dental examination Z01.20 [facility] [address] [address] Mar, [facility] [address] [address] Jan, Onychomycosis B35.1 [facility] [address] [address] Jan, [facility] [address] [address] December, Dental caries K02.9 [facility] [address] [address] Nov, Dental examination Z01.20 [facility] [address] [address] Oct, Dental examination Z01.20 [facility] [address] [address] Oct, [facility] [address] [address] Oct, Migraine G43.909 [facility] [address] [address] Sep, Onychomycosis B35.1 [facility] [address] [address] Sep, [facility] [address] [address] Aug, [facility] [address] [address] Jul, [place] [address] [address] Apr, [place] [address] [address] Apr, Right anterior knee pain 719.[address] [address] Mar, Tendonitis 726.90 ; HTN (hypertension) 4 01.9 ; Tremors of nervous system 781.0 and Anxiety 300.[address] [address] Mar, Thrush 112.0 [place] [address] [address] Feb, [place] [address] [address] Feb, Tremors of nervous system 781.0 and Carp al tunnel syndrome 354.0 [facility] [address] [address] Jan, Anxiety 300.00 ; Tremors of nervous syst em 781.0 and Tendonitis 726.90 [place] [address] [address] Jan, Anxiety 300.00 ; Tremors of nervous syst em 781.0 and Tendonitis 726.90 [place] [address] [place] [id number] [place] [address] Jan, Sinusitis 473.9 [facility] [address] [place] [id number] [place] [address] December, [facility] [address] [place] [id number] [place] [address] December, [facility] [address] [place] [id number] [place] [address] December, [facility] [address] [place] [id number] [place] [address] December, [facility] [address] [place] [id number] [place] [address] December, [facility] [address] [place] [id number] [place] [address] Nov, [facility] [address] [place] [id number] [place] [address] Nov, [facility] [address] [place] [id number] [place] [address] Sep, [facility] [address] [place] [id number] [place] [address] Sep, [facility] [address] [place] [id number] [place] [address] Sep, [facility] [address] [place] [id number] [place] [address] Sep, [facility] [address] [place] [id number] [place] [address] Jul, [facility] [address] [place] [id number] [place] [address] Jul, [facility] [address] [place] [id number] [place] [address] Jul, [facility] [address] [place] [id number] [place] [address] Jul, [facility] [address] [place] [id number] [place] [address] Jul, [facility] [address] [facility] [id number] [place] [address] Jul, [facility] [address] [facility] [id number] [place] [address] Jul, [facility] [address] [id number] [place] [address] Jul, [facility] [address] [id number] [place] [address] Jul, [facility] [address] [id number] [place] [address] Jul, [facility] [address] [id number] [place] [address] Jun, [facility] [address] [id number] [place] [address] Jun, [facility] [address] [id number] [place] [address] Jun, [facility] [address] [id number] [place] [address] Jun, [facility] [address] [id number] [place] [address] May, [facility] [address] [id number] [place] [address] May, [facility] [address] [id number] [place] [address] May, [facility] [address] [id number] [place] [address] 14 May, 2014 [facility] [address] [id number] [place] [address] 17 Apr, 2014 [facility] [address] [id number] [place] [address] 17 Apr, 2014 [facility] [address] [id number] [place] [address] Apr, 2013 [facility] [address] [facility] [id number] [place] [address] 17 Apr, 2013 [facility] [address] [id number] [place] [address] 16 Apr, 2014 [facility] [address] [facility] [id number] [place] [address] Apr, [facility] [address] [id number] [place] [address] Apr, [facility] [address] [facility] [id number] [place] [address] Apr, [facility] [address] [id number] [place] [address] Mar, [facility] [address] [id number] [place] [address] Mar, [facility] [address] [id number] [place] [address] Feb, [facility] [address] [id number] [place] [address] Feb, [facility] [address] [id number] [place] [address] Feb, [facility] [address] [id number] [place] [address] Feb, [facility] [address] [id number] [place] [address] Jan, [facility] [address] [id number] [place] [address] Jan, [facility] [address] [id number] [place] [address] Jan, [facility] [address] [id number] [place] [address] Jan, [facility] [address] [id number] [place] [address] Jan, [facility] [address] [id number] [place] [address] Jan, [facility] [address] [id number] [place] [address] December, [facility] [address] [id number] [place] [address] December, [facility] [address] [id number] [place] [address] December, [facility] [address] [id number] [place] [address] December, [facility] [address] [id number] [place] [address] December, [facility] [address] [id number] [place] [address] Nov, [facility] [address] [id number] [place] [address] Nov, [facility] [address] [id number] [place] [address] Nov, [facility] [address] [id number] [place] [address] Nov, [facility] [address] [id number] [place] [address] Nov, [facility] [address] [id number] [place] [address] Nov, [facility] [address] [id number] [place] [address] Oct, [facility] [address] [id number] [place] [address] Oct, [facility] [address] [id number] [place] [address] Oct, [facility] [address] [id number] [place] [address] Oct, [facility] [address] [id number] [place] [address] Sep, [facility] [address] [id number] [place] [address] 14 Sep, 2013 [facility] [address] [id number] [place] [address] Sep, [facility] [address] [id number] [place] [address] Sep, [facility] [address] [id number] [place] [address] Sep, [facility] [address] [id number] [place] [address] Sep, [facility] [address] [id number] [place] [address] Sep, [facility] [address] [id number] [place] [address] Sep, [facility] [address] [id number] [place] [address] Sep, [facility] [address] [id number] [place] [address] Sep, [facility] [address] [id number] [place] [address] Sep, [facility] [address] [id number] [place] [address] Sep, [facility] [address] [id number] [place] [address] Sep, [facility] [address] [id number] [place] [address] Aug, [facility] [address] [id number] [place] [address] Aug, [facility] [address] [id number] [place] [address] Jul, [facility] [address] [id number] [place] [address] Jul, [facility] [address] [id number] [place] [address] Jun, [facility] [address] [facility] [id number] [place] [address] Jun, [facility] [address] [id number] [place] [address] May, [facility] [address] [id number] [place] [address] Apr, [facility] [address] [id number] [place] [address] Mar, [facility] [address] [facility] [id number] [place] [address] Jan, [facility] [address] [id number] [place] [address] December, [facility] [address] [id number] [place] [address] December, [facility] [address] [id number] [place] [address] Oct, [facility] [address] [id number] [place] [address] Oct, [facility] [address] [id number] [place] [address] Sep, [facility] [address] [id number] [place] [address] Aug, [facility] [address] [id number] [place] [address] Aug, [facility] [address] [id number] [place] [address] Jul, [facility] [address] [id number] [place] [address] Jul, [facility] [address] [id number] [place] [address] Mar, [facility] [address] [id number] [place] [address] Mar, [facility] [address] [id number] [place] [address] Feb, [facility] [address] [id number] [place] [address] Feb, [facility] [address] [id number] [place] [address] Feb, [facility] [address] [id number] [place] [address] Jan, [facility] [address] [id number] [place] [address] Nov, [facility] [address] [id number] [place] [address] Sep, [facility] [address] [id number] [place] [address] Sep, [facility] [id number] [place] [address] Sep, [facility] [id number] [place] [address] Aug, [facility] [address] [id number] [place] [address] Aug, [facility] [address] [id number] [place] [address] Aug, [facility] [id number] [place] [address] Jun, [facility] [id number] [place] [address] Jun, [facility] [address] [id number] [place] [address] Jun, [facility] [id number] [place] [address] Jun, [facility] [address] [id number] [place] [address] May, [facility] [id number] [place] [address] May, [facility] [address] [id number] [place] [address] May, [facility] [address] [id number] [place] [address] May, [facility] [address] [id number] [place] [address] Jun, [facility] [address] [id number] [place] [address] December, [facility] [address] [id number] [place] [address] May, IMMUNIZATIONS No Known Immunizations SOCIAL HISTORY [...]
--- OUTSIDE RECORDS SUMMARY | 2020-03-17 19:12 | XMS REPORT ---
Author Author Ann MCHUGH Organization [facility] Address [address] [place] [address] Care Team Providers Care Border Measurer Name Role Phone RAFAELA MCHUGH Unavailable PROBLEMS Type Condition ICD9-CM Code CLR27-XK Code Onset Dates Condition S tatus SNOMED Code Problem Perimenopausal N95.1 Active 55526 2112256124 Problem Seasonal allergic rhinitis, unspecified allergic rhinitis trigger J30.2 Active 302976579 Problem Chronic migraine G43.709 Active 377 71807 Problem Anxiety F41.9 Active 08165862 Problem Vitamin D deficiency E55.9 Active 93952952 Problem Essential hypertension I10 Active 68966969 Problem Iron deficiency anemia, unspecified iron deficiency an emia type D50.9 Active 46610428 Problem Carpal tunnel syndrome, bilateral G56.03 Active 52328328997875064 Problem Daytime hypersomnia G47.19 Active 53631517244667 Problem Nocturnal dyspnea R06.00 Active 24 6078380 ALLERGIES No Information ENCOUNTERS Encounter Location Date Diagnosis [address] [address] Apr, Chronic migraine G43.709 ; Essential hyp ertension I10 ; Iron deficiency anemia, unspecified iron deficiency anemia type D50.9 and Long-term use of high-risk medication Z79.[address] [address] Feb, Seasonal allergic rhinitis, unspecified allergic rhinitis trigger J30.2 and Chronic migraine G43.[address] [address] Feb, Anxiety F41.[address] [address] Feb, Exposure to pertussis Z20.[address] [id number] [place] [address] Jan, [place] [address] [address] Jan, Chronic migraine G43.709 and Anxiety F41 .9 [place] [address] [address] December, Anxiety F41.9 [place] [address] [address] Nov, Chronic migraine G43.709 ; Seasonal ivon rgic rhinitis, unspecified allergic rhinitis trigger J30.2 ; Vitamin D deficiency E55.9 ; Nocturnal dyspnea R06.00 ; Daytime hypersomnia G47.19 and Anxiety F41.9 [place] [address] [address] Nov, Chronic migraine G43.709 [place] [address] [address] Oct, [place] [address] [address] Sep, Carpal tunnel syndrome, bilateral G56.03 [place] [address] [address] Sep, Chronic migraine G43.709 [place] [address] [address] Aug, [place] [address] [address] Jul, Seasonal allergic rhinitis, unspecified allergic rhinitis trigger J30.2 [place] [address] [address] Jul, Seasonal allergic rhinitis, unspecified allergic rhinitis trigger J30.2 [place] [address] [address] Jul, Chronic migraine G43.709 [place] [address] [address] Jun, [facility] [address] [id number] May, Dental caries K02.9 [place] [address] [address] May, Chronic migraine G43.709 [place] [address] [address] Apr, Chronic migraine G43.709 ; Iron deficien cy anemia, unspecified iron deficiency anemia type D50.9 ; Perimenopausal N95.1 and Vitamin D deficiency E55.9 [place] [address] [address] Mar, [place] [address] [address] Mar, Seasonal allergic rhinitis, unspecified allergic rhinitis trigger J30.2 [place] [address] [address] Mar, Chronic migraine G43.709 [place] [address] [address] Mar, [place] [address] [address] Mar, Chronic migraine G43.709 ; Irregular men ses N92.6 ; Iron deficiency anemia, unspecified iron deficiency anemia type D50.9 and General medical exam Z00.00 [place] [address] [address] Mar, Chronic migraine G43.709 ; Iron deficien cy anemia, unspecified iron deficiency anemia type D50.9 ; Irregular menses N92.6 and General medical exam Z00.00 [facility] [address] [id number] Feb, Dental examination Z01.20 [place] [address] [address] 18 Feb, 2017 Chronic tension-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, intractab le G44.221 and Seasonal allergic rhinitis, unspecified allergic rhinitis trigger J30.2 [facility] [address] [place] [id number] [place] [address] Feb, [facility] [address] [place] [address] [id number] [place] [address] Jan, Seasonal allergic rhinitis, unspecified allergic rhinitis trigger J30.2 [facility] [address] [address] December, Chronic tension-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, intractab le G44.221 [facility] [address] [id number] [place] [id number] December, Dental examination Z01.20 [place] [address] [address] December, [place] [address] [address] Oct, [facility] [address] [address] Oct, [facility] [address] [facility] [id number] [address] [place] [address] Oct, Sore throat J02.9 and Season al allergic rhinitis, unspecified allergic rhinitis trigger J30.2 [place] [address] [address] Oct, [facility] [address] [address] Sep, [facility] [address] [address] Aug, Menstrual periods irregular N92.6 ; 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-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, 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 ; Acute upper respiratory infection, unspecified J06.9 and Other viral agents as the cause of diseases classified elsewhere B97.89 [facility] [address] [address] Jul, [place] [address] [place] [address] Jul, [facility] [address] [address] Jul, Migraine without aura and without status migrainosus, not intractable G43.009 [facility] [address] [address] Jun, [facility] [address] [address] May, Migraine without aura and without status migrainosus, not intractable G43.009 [facility] [address] [address] May, [facility] [address] [address] May, [facility] [address] [id number] [place] [id number] Mar, Dental examination Z01.20 [facility] [address] [address] Mar, [facility] [address] [address] Jan, Onychomycosis B35.1 [facility] [address] [address] Jan, [facility] [address] [address] December, Dental caries K02.9 [facility] [address] [address] Nov, Dental examination Z01.20 [facility] [address] [address] Oct, Dental examination Z01.20 [facility] [address] [address] Oct, [facility] [address] [address] Oct, Migraine G43.909 [facility] [address] [address] Sep, Onychomycosis B35.1 [place] [address] [address] Sep, [facility] [address] [address] Aug, [facility] [address] [address] Jul, [place] [address] [address] Apr, [place] [address] [address] Apr, Right anterior knee pain 719.46 [place] [address] [address] Mar, Tendonitis 726.90 ; HTN (hypertension) 4 01.9 ; Tremors of nervous system 781.0 and Anxiety 300.00 [place] [address] [address] Mar, Thrush 112.0 [place] [address] [address] Feb, [place] [address] [address] Feb, Tremors of nervous system 781.0 and Carp al tunnel syndrome 354.0 [place] [address] [address] Jan, Anxiety 300.00 ; Tremors of nervous syst em 781.0 and Tendonitis 726.90 [place] [address] [address] Jan, Anxiety 300.00 ; Tremors of nervous syst em 781.0 and Tendonitis 726.90 [place] [address] [address] Jan, Sinusitis 473.9 [facility] [address] [id number] [place] [address] December, [facility] [id number] [place] [address] December, [facility] [id number] [place] [address] December, [facility] [address] [place] [id number] [place] [address] December, [facility] [address] [id number] [place] [address] December, [facility] [address] [id number] [place] [address] Nov, [facility] [address] [place] [id number] [place] [address] Nov, [facility] [address] [id number] [place] [address] Sep, [facility] [id number] [place] [address] Sep, [facility] [id number] [place] [address] Sep, [facility] [id number] [place] [address] Sep, [facility] [id number] [place] [address] Jul, [facility] [address] [id number] [place] [address] Jul, [facility] [place] [facility] [id number] [place] [address] Jul, [facility] [place] [facility] [address] [place] [id number] [place] [address] Jul, [facility] [address] [place] [id number] [place] [address] Jul, [facility] [place] [facility] [address] [id number] [place] [address] Jul, [facility] [place] [facility] [address] [id number] [place] [address] Jul, [facility] [place] [facility] [address] [id number] [place] [address] Jul, [facility] [place] [facility] [address] [id number] [place] [address] Jul, [facility] [place] [facility] [address] [id number] [place] [address] Jul, [facility] [place] [facility] [address] [id number] [place] [address] Jun, [facility] [place] [facility] [address] [id number] [place] [address] Jun, [facility] [place] [facility] [address] [id number] [place] [address] Jun, [facility] [place] [facility] [address] [id number] [place] [address] Jun, [facility] [place] [facility] [address] [id number] [place] [address] May, [facility] [place] [facility] [address] [id number] [place] [address] May, [facility] [place] [facility] [address] [id number] [place] [address] May, [facility] [place] [facility] [address] [id number] [place] [address] 14 May, 2014 [facility] [place] [facility] [address] [id number] [place] [address] 17 Apr, 2014 [facility] [place] [facility] [address] [id number] [place] [address] 17 Apr, 2014 [facility] [place] [facility] [address] [id number] [place] [address] Apr, [facility] [place] [facility] [address] [id number] [place] [address] 17 Apr, 2013 [facility] [place] [facility] [address] [facility] [id number] [place] [address] Apr, [facility] [place] [facility] [address] [facility] [id number] [place] [address] Apr, [facility] [place] [facility] [address] [id number] [place] [address] Apr, 2013 [facility] [place] [facility] [address] [facility] [id number] [place] [address] Apr, [facility] [place] [facility] [address] [facility] [id number] [place] [address] Mar, [facility] [place] [facility] [address] [id number] [place] [address] Mar, [facility] [place] [facility] [address] [id number] [place] [address] Feb, [facility] [place] [facility] [address] [id number] [place] [address] Feb, [facility] [place] [facility] [address] [id number] [place] [address] Feb, [facility] [place] [facility] [address] [id number] [place] [address] Feb, [facility] [place] [facility] [address] [id number] [place] [address] Jan, [facility] [place] [facility] [address] [id number] [place] [address] Jan, [facility] [place] [facility] [address] [id number] [place] [address] Jan, [facility] [place] [facility] [address] [id number] [place] [address] Jan, [facility] [place] [facility] [address] [id number] [place] [address] Jan, [facility] [place] [facility] [address] [id number] [place] [address] Jan, [facility] [place] [facility] [address] [id number] [place] [address] December, [facility] [place] [facility] [address] [facility] [id number] [place] [address] December, [facility] [place] [facility] [address] [facility] [id number] [place] [address] December, [facility] [place] [facility] [address] [id number] [place] [address] December, [facility] [place] [facility] [address] [id number] [place] [address] December, [facility] [place] [facility] [address] [facility] [id number] [place] [address] Nov, [facility] [place] [facility] [address] [id number] [place] [address] Nov, [facility] [place] [facility] [address] [id number] [place] [address] Nov, [facility] [place] [facility] [address] [id number] [place] [address] Nov, [facility] [place] [facility] [address] [id number] [place] [address] Nov, [facility] [place] [facility] [address] [id number] [place] [address] Nov, [facility] [place] [facility] [address] [id number] [place] [address] Oct, [facility] [place] [facility] [address] [id number] [place] [address] Oct, [facility] [place] [facility] [address] [facility] [id number] [place] [address] Oct, [facility] [place] [facility] [address] [id number] [place] [address] Oct, [facility] [place] [facility] [address] [id number] [place] [address] 14 Sep, 2013 [facility] [place] [facility] [address] [id number] [place] [address] Sep, [facility] [place] [facility] [address] [id number] [place] [address] Sep, [facility] [place] [facility] [address] [id number] [place] [address] 10 Sep, 2013 [facility] [place] [facility] [address] [id number] [place] [address] Sep, [facility] [place] [facility] [address] [id number] [place] [address] Sep, 2013 [facility] [place] [facility] [address] [id number] [place] [address] Sep, 2013 [facility] [place] [facility] [address] [id number] [place] [address] Sep, 2013 [facility] [place] [facility] [address] [id number] [place] [address] Sep, [facility] [place] [facility] [address] [id number] [place] [address] Sep, 2013 [facility] [place] [facility] [address] [id number] [place] [address] Sep, [facility] [place] [facility] [address] [id number] [place] [address] Sep, [facility] [place] [facility] [address] [id number] [place] [address] Sep, [facility] [place] [facility] [address] [id number] [place] [address] Aug, [facility] [place] [facility] [address] [id number] [place] [address] Aug, [facility] [place] [facility] [address] [id number] [place] [address] Jul, [facility] [place] [facility] [address] [id number] [place] [address] Jul, [facility] [place] [facility] [address] [id number] [place] [address] Jun, [facility] [place] [facility] [address] [id number] [place] [address] Jun, [facility] [place] [facility] [address] [id number] [place] [address] May, [facility] [place] [facility] [address] [id number] [place] [address] Apr, [facility] [place] [facility] [address] [id number] [place] [address] Mar, [facility] [place] [facility] [address] [id number] [place] [address] Jan, [facility] [place] [facility] [address] [id number] [place] [address] December, [facility] [place] [facility] [address] [id number] [place] [address] December, [facility] [place] [facility] [address] [id number] [place] [address] Oct, [facility] [place] [facility] [address] [id number] [place] [address] Oct, [facility] [place] [facility] [address] [id number] [place] [address] Sep, [facility] [place] [facility] [address] [id number] [place] [address] Aug, [facility] [place] [facility] [address] [id number] [place] [address] Aug, [facility] [place] [facility] [address] [id number] [place] [address] Jul, [facility] [place] [facility] [address] [id number] [place] [address] Jul, [facility] [place] [facility] [address] [id number] [place] [address] Mar, [facility] [place] [facility] [address] [id number] [place] [address] Mar, [facility] [place] [facility] [address] [id number] [place] [address] Feb, [facility] [place] [facility] [address] [id number] [place] [address] Feb, [facility] [place] [facility] [address] [id number] [place] [address] Feb, [facility] [place] [facility] [address] [id number] [place] [address] Jan, [facility] [place] [facility] [address] [id number] [place] [address] Nov, [facility] [place] [facility] [address] [facility] [id number] [place] [address] Sep, [facility] [place] [facility] [address] [id number] [place] [address] Sep, [facility] [place] [facility] [address] [id number] [place] [address] Sep, [facility] [place] [facility] [address] [id number] [place] [address] Aug, [facility] [place] [facility] [address] [id number] [place] [address] Aug, [facility] [place] [facility] [address] [id number] [place] [address] Aug, [facility] [place] [facility] [address] [id number] [place] [address] Jun, [facility] [place] [facility] [address] [id number] [place] [address] Jun, [facility] [place] [facility] [address] [id number] [place] [address] Jun, [facility] [place] [facility] [address] [id number] [place] [address] Jun, [facility] [place] [facility] [address] [id number] [place] [address] May, [facility] [place] [facility] [address] [id number] [place] [address] May, [facility] [place] [facility] [address] [id number] [place] [address] May, [facility] [address] [id number] [place] [address] May, [facility] [address] [id number] [place] [address] Jun, [facility] [address] [id number] [place] [address] December, [facility] [address] [id number] [place] [address] May, IMMUNIZATIONS No Known Immunizations SOCIAL HISTORY Never Assessed REASON FOR VISIT PLAN OF CARE VITAL SIGNS Height 64 in 2013-12-07 Weight 144.7 lbs 2013-12-07 Temperature 97.6 degrees Fahrenheit 2013-12-07 Heart Rate 74 bpm 2013-12-07 Respiratory Rate 18 2013-12-07 Blood pressure systolic 112 mmHg 2013-12-07 Blood pressure diastolic 76 mmHg 2013-12-07 MEDICATIONS No Known Medications RESULTS No Results [...]
--- OUTSIDE RECORDS SUMMARY | 2020-03-17 19:12 | XMS REPORT ---
Author Author Ann Tao Organization [facility] Address [address] [place] [address] Care Team Providers Care Special Services Coordinator Name Role Phone MANUEL Tao Unavailable PROBLEMS Type Condition ICD9-CM Code RWO73-UA Code Onset Dates Condition S tatus SNOMED Code Problem Perimenopausal N95.1 Active 56242 [id number] Problem Seasonal allergic rhinitis, unspecified allergic rhinitis trigger J30.2 Active 647549627 Problem Chronic migraine G43.709 Active 377 95370 Problem Anxiety F41.9 Active 33235872 Problem Vitamin D deficiency E55.9 Active 85385277 Problem Essential hypertension I10 Active 66217044 Problem Iron deficiency anemia, unspecified iron deficiency an emia type D50.9 Active 23530598 Problem Carpal tunnel syndrome, bilateral G56.03 Active 30328796983018648 Problem Daytime hypersomnia G47.19 Active [id number] Problem Nocturnal dyspnea R06.00 Active 24 0210142 ALLERGIES No Information ENCOUNTERS Encounter Location Date Diagnosis [address] [address] Apr, Chronic migraine G43.709 ; Essential hyp ertension I10 ; Iron deficiency anemia, unspecified iron deficiency anemia type D50.9 and Long-term use of high-risk medication Z79.[address] [address] Feb, Seasonal allergic rhinitis, unspecified allergic rhinitis trigger J30.2 and Chronic migraine G43.[address] [address] Feb, Anxiety F41.[address] [address] Feb, Exposure to pertussis Z20.818 [place] [address] [address] Jan, [place] [address] [address] Jan, Chronic migraine G43.709 and Anxiety F41 .9 [place] [address] [address] December, Anxiety F41.9 [place] [address] [address] Nov, Chronic migraine G43.709 ; Seasonal ivon rgic rhinitis, unspecified allergic rhinitis trigger J30.2 ; Vitamin D deficiency E55.9 ; Nocturnal dyspnea R06.00 ; Daytime hypersomnia G47.19 and Anxiety F41.9 [place] [address] [address] Nov, Chronic migraine G43.709 [place] [address] [address] Oct, [place] [address] [address] Sep, Carpal tunnel syndrome, bilateral G56.03 [place] [address] [address] Sep, Chronic migraine G43.709 [place] [address] [address] Aug, [place] [address] [address] Jul, Seasonal allergic rhinitis, unspecified allergic rhinitis trigger J30.2 [place] [address] [address] Jul, Seasonal allergic rhinitis, unspecified allergic rhinitis trigger J30.2 [place] [address] [address] Jul, Chronic migraine G43.709 [place] [address] [address] Jun, [facility] [address] [id number] May, Dental caries K02.9 [place] [address] [address] May, Chronic migraine G43.709 [place] [address] [address] Apr, Chronic migraine G43.709 ; Iron deficien cy anemia, unspecified iron deficiency anemia type D50.9 ; Perimenopausal N95.1 and Vitamin D deficiency E55.9 [place] [address] [address] Mar, [place] [address] [address] Mar, Seasonal allergic rhinitis, unspecified allergic rhinitis trigger J30.2 [place] [address] [address] Mar, Chronic migraine G43.709 [place] [address] [address] Mar, [place] [address] [address] Mar, Chronic migraine G43.709 ; Irregular men ses N92.6 ; Iron deficiency anemia, unspecified iron deficiency anemia type D50.9 and General medical exam Z00.00 [place] [address] [address] Mar, Chronic migraine G43.709 ; Iron deficien cy anemia, unspecified iron deficiency anemia type D50.9 ; Irregular menses N92.6 and General medical exam Z00.00 [facility] [address] [id number] Feb, Dental examination Z01.20 [place] [address] [address] Feb, Chronic tension-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, intractab le G44.221 and Seasonal allergic rhinitis, unspecified allergic rhinitis trigger J30.2 [facility] [address] [address] Feb, [facility] [address] [address] Jan, Seasonal allergic rhinitis, unspecified allergic rhinitis trigger J30.2 [place] [address] [address] December, Chronic tension-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, intractab le G44.221 [facility] [address] [place] [id number] [place] [id number] December, Dental examination Z01.20 [place] [address] [address] December, [place] [address] [address] Oct, [place] [address] [address] Oct, [facility] [address] [facility] [id number] [address] [place] [address] Oct, Sore throat J02.9 and Season al allergic rhinitis, unspecified allergic rhinitis trigger J30.2 [place] [address] [address] Oct, [place] [address] [address] Sep, [place] [address] [address] Aug, Menstrual periods irregular N92.6 ; 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 tension-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, 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 ; Acute upper respiratory infection, unspecified J06.9 and Other viral agents as the cause of diseases classified elsewhere B97.89 [place] [address] [address] Jul, [facility] [address] [place] [id number] [place] [address] Jul, [facility] [address] [address] Jul, Migraine without aura and without status migrainosus, not intractable G43.009 [facility] [address] [address] Jun, [facility] [address] [address] May, Migraine without aura and without status migrainosus, not intractable G43.009 [facility] [address] [address] May, [facility] [address] [address] May, [facility] [address] [place] [id number] [place] [id number] Mar, Dental examination Z01.20 [facility] [address] [address] Mar, [facility] [address] [address] Jan, Onychomycosis B35.1 [facility] [address] [address] Jan, [facility] [address] [address] December, Dental caries K02.9 [facility] [address] [address] Nov, Dental examination Z01.20 [facility] [address] [address] Oct, Dental examination Z01.20 [facility] [address] [address] Oct, [facility] [address] [address] Oct, Migraine G43.909 [facility] [address] [address] Sep, Onychomycosis B35.1 [facility] [address] [address] Sep, [facility] [address] [address] Aug, [facility] [address] [address] Jul, [place] [address] [address] Apr, [place] [address] [address] Apr, Right anterior knee pain 719.[address] [address] Mar, Tendonitis 726.90 ; HTN (hypertension) 4 01.9 ; Tremors of nervous system 781.0 and Anxiety [address] [address] Mar, Thrush 112.0 [place] [address] [address] Feb, [place] [address] [address] Feb, Tremors of nervous system 781.0 and Carp al tunnel syndrome 354.0 [facility] [address] [address] Jan, Anxiety 300.00 ; Tremors of nervous syst em 781.0 and Tendonitis 726.90 [place] [address] [address] Jan, Anxiety 300.00 ; Tremors of nervous syst em 781.0 and Tendonitis 726.90 [place] [address] [place] [id number] [place] [address] Jan, Sinusitis 473.9 [facility] [address] [place] [id number] [place] [address] December, [facility] [address] [id number] [place] [address] December, [facility] [address] [place] [id number] [place] [address] December, [facility] [address] [place] [id number] [place] [address] December, [facility] [address] [place] [id number] [place] [address] December, [facility] [address] [place] [id number] [place] [address] Nov, [facility] [address] [place] [id number] [place] [address] Nov, [facility] [address] [place] [id number] [place] [address] Sep, [facility] [address] [place] [id number] [place] [address] Sep, [facility] [address] [place] [id number] [place] [address] Sep, [facility] [address] [place] [id number] [place] [address] Sep, [facility] [address] [place] [id number] [place] [address] Jul, [facility] [address] [place] [address] [id number] [place] [address] Jul, [facility] [address] [place] [id number] [place] [address] Jul, [facility] [address] [place] [id number] [place] [address] Jul, [facility] [address] [place] [id number] [place] [address] Jul, [facility] [address] [facility] [id number] [place] [address] Jul, [facility] [address] [facility] [id number] [place] [address] Jul, [facility] [address] [id number] [place] [address] Jul, [facility] [address] [id number] [place] [address] Jul, [facility] [address] [id number] [place] [address] Jul, [facility] [address] [id number] [place] [address] Jun, [facility] [address] [id number] [place] [address] Jun, [facility] [address] [id number] [place] [address] Jun, [facility] [address] [id number] [place] [address] Jun, [facility] [address] [id number] [place] [address] May, [facility] [address] [id number] [place] [address] May, [facility] [address] [id number] [place] [address] May, [facility] [address] [id number] [place] [address] 14 May, 2014 [facility] [address] [id number] [place] [address] 17 Apr, 2014 [facility] [address] [id number] [place] [address] 17 Apr, 2014 [facility] [address] [id number] [place] [address] Apr, 2013 [facility] [address] [facility] [id number] [place] [address] 17 Apr, 2013 [facility] [address] [id number] [place] [address] 16 Apr, 2014 [facility] [address] [facility] [id number] [place] [address] Apr, [facility] [address] [id number] [place] [address] Apr, [facility] [address] [facility] [id number] [place] [address] Apr, [facility] [address] [id number] [place] [address] Mar, [facility] [address] [id number] [place] [address] Mar, [facility] [address] [id number] [place] [address] Feb, [facility] [address] [id number] [place] [address] Feb, [facility] [address] [id number] [place] [address] Feb, [facility] [address] [id number] [place] [address] Feb, [facility] [address] [id number] [place] [address] Jan, [facility] [address] [id number] [place] [address] Jan, [facility] [address] [id number] [place] [address] Jan, [facility] [address] [id number] [place] [address] Jan, [facility] [address] [id number] [place] [address] Jan, [facility] [address] [id number] [place] [address] Jan, [facility] [address] [id number] [place] [address] December, [facility] [address] [id number] [place] [address] December, [facility] [address] [id number] [place] [address] December, [facility] [address] [id number] [place] [address] December, [facility] [address] [id number] [place] [address] December, [facility] [address] [id number] [place] [address] Nov, [facility] [address] [id number] [place] [address] Nov, [facility] [address] [id number] [place] [address] Nov, [facility] [address] [id number] [place] [address] Nov, [facility] [address] [id number] [place] [address] Nov, [facility] [address] [id number] [place] [address] Nov, [facility] [address] [id number] [place] [address] Oct, [facility] [address] [id number] [place] [address] Oct, [facility] [address] [id number] [place] [address] Oct, [facility] [address] [id number] [place] [address] Oct, [facility] [address] [id number] [place] [address] Sep, [facility] [address] [id number] [place] [address] 14 Sep, 2013 [facility] [address] [id number] [place] [address] Sep, [facility] [address] [id number] [place] [address] Sep, [facility] [address] [id number] [place] [address] Sep, [facility] [address] [id number] [place] [address] Sep, [facility] [address] [id number] [place] [address] Sep, [facility] [address] [id number] [place] [address] Sep, [facility] [address] [id number] [place] [address] Sep, [facility] [address] [id number] [place] [address] Sep, [facility] [address] [id number] [place] [address] Sep, [facility] [address] [id number] [place] [address] Sep, [facility] [address] [id number] [place] [address] Sep, [facility] [address] [id number] [place] [address] Aug, [facility] [address] [id number] [place] [address] Aug, [facility] [address] [id number] [place] [address] Jul, [facility] [address] [id number] [place] [address] Jul, [facility] [address] [id number] [place] [address] Jun, [facility] [address] [facility] [id number] [place] [address] Jun, [facility] [address] [id number] [place] [address] May, [facility] [address] [id number] [place] [address] Apr, [facility] [address] [id number] [place] [address] Mar, [facility] [address] [facility] [id number] [place] [address] Jan, [facility] [address] [id number] [place] [address] December, [facility] [address] [id number] [place] [address] December, [facility] [address] [id number] [place] [address] Oct, [facility] [address] [id number] [place] [address] Oct, [facility] [address] [id number] [place] [address] Sep, [facility] [address] [id number] [place] [address] Aug, [facility] [address] [id number] [place] [address] Aug, [facility] [address] [id number] [place] [address] Jul, [facility] [address] [id number] [place] [address] Jul, [facility] [address] [id number] [place] [address] Mar, [facility] [address] [id number] [place] [address] Mar, [facility] [address] [id number] [place] [address] Feb, [facility] [address] [id number] [place] [address] Feb, [facility] [address] [id number] [place] [address] Feb, [facility] [address] [id number] [place] [address] Jan, [facility] [address] [id number] [place] [address] Nov, [facility] [address] [id number] [place] [address] Sep, [facility] [id number] [place] [address] Sep, [facility] [id number] [place] [address] Sep, [facility] [id number] [place] [address] Aug, [facility] [address] [id number] [place] [address] Aug, [facility] [id number] [place] [address] Aug, [facility] [id number] [place] [address] Jun, [facility] [id number] [place] [address] Jun, [facility] [address] [id number] [place] [address] Jun, [facility] [id number] [place] [address] Jun, [facility] [address] [id number] [place] [address] May, [facility] [id number] [place] [address] May, [facility] [address] [id number] [place] [address] May, [facility] [address] [id number] [place] [address] May, [facility] [address] [id number] [place] [address] Jun, [facility] [address] [id number] [place] [address] December, [facility] [address] [id number] [place] [address] May, IMMUNIZATIONS No Known Immunizations SOCIAL HISTORY [...]
--- OUTSIDE RECORDS SUMMARY | 2020-03-17 19:12 | XMS REPORT ---
Author Author Ann Tao Organization [facility] Address [address] [place] [address] Care Team Providers Care Senior Drupal Developer Name Role Phone MANUEL Tao Unavailable PROBLEMS Type Condition ICD9-CM Code ZIG63-IY Code Onset Dates Condition S tatus SNOMED Code Problem Perimenopausal N95.1 Active 22117 [id number] Problem Seasonal allergic rhinitis, unspecified allergic rhinitis trigger J30.2 Active 941819483 Problem Chronic migraine G43.709 Active 377 48825 Problem Anxiety F41.9 Active 39289104 Problem Vitamin D deficiency E55.9 Active 51789654 Problem Essential hypertension I10 Active 10240852 Problem Iron deficiency anemia, unspecified iron deficiency an emia type D50.9 Active 42470246 Problem Carpal tunnel syndrome, bilateral G56.03 Active [id number] Problem Daytime hypersomnia G47.19 Active 09851669762489 Problem Nocturnal dyspnea R06.00 Active 24 [id number] ALLERGIES No Information ENCOUNTERS Encounter Location Date Diagnosis [address] [address] Apr, Chronic migraine G43.709 ; Essential hyp ertension I10 ; Iron deficiency anemia, unspecified iron deficiency anemia type D50.9 and Long-term use of high-risk medication Z79.[address] [address] Feb, Seasonal allergic rhinitis, unspecified allergic rhinitis trigger J30.2 and Chronic migraine G43.[address] [address] Feb, Anxiety F41.[address] [address] Feb, Exposure to pertussis Z20.818 [place] [address] [address] Jan, [place] [address] [address] Jan, Chronic migraine G43.709 and Anxiety F41 .9 [place] [address] [address] December, Anxiety F41.9 [place] [address] [address] Nov, Chronic migraine G43.709 ; Seasonal ivon rgic rhinitis, unspecified allergic rhinitis trigger J30.2 ; Vitamin D deficiency E55.9 ; Nocturnal dyspnea R06.00 ; Daytime hypersomnia G47.19 and Anxiety F41.9 [place] [address] [address] Nov, Chronic migraine G43.709 [place] [address] [address] Oct, [place] [address] [address] Sep, Carpal tunnel syndrome, bilateral G56.03 [place] [address] [address] Sep, Chronic migraine G43.709 [place] [address] [address] Aug, [place] [address] [address] Jul, Seasonal allergic rhinitis, unspecified allergic rhinitis trigger J30.2 [place] [address] [address] Jul, Seasonal allergic rhinitis, unspecified allergic rhinitis trigger J30.2 [place] [address] [address] Jul, Chronic migraine G43.709 [place] [address] [address] Jun, [facility] [address] [id number] May, Dental caries K02.9 [place] [address] [address] May, Chronic migraine G43.709 [place] [address] [address] Apr, Chronic migraine G43.709 ; Iron deficien cy anemia, unspecified iron deficiency anemia type D50.9 ; Perimenopausal N95.1 and Vitamin D deficiency E55.9 [place] [address] [address] Mar, [place] [address] [address] Mar, Seasonal allergic rhinitis, unspecified allergic rhinitis trigger J30.2 [place] [address] [address] Mar, Chronic migraine G43.709 [place] [address] [address] Mar, [place] [address] [address] Mar, Chronic migraine G43.709 ; Irregular men ses N92.6 ; Iron deficiency anemia, unspecified iron deficiency anemia type D50.9 and General medical exam Z00.00 [place] [address] [address] Mar, Chronic migraine G43.709 ; Iron deficien cy anemia, unspecified iron deficiency anemia type D50.9 ; Irregular menses N92.6 and General medical exam Z00.00 [facility] [address] [id number] Feb, Dental examination Z01.20 [place] [address] [address] Feb, Chronic tension-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, intractab le G44.221 and Seasonal allergic rhinitis, unspecified allergic rhinitis trigger J30.2 [facility] [address] [address] Feb, [facility] [address] [address] Jan, Seasonal allergic rhinitis, unspecified allergic rhinitis trigger J30.2 [place] [address] [address] December, Chronic tension-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, intractab le G44.221 [facility] [address] [place] [id number] [place] [id number] December, Dental examination Z01.20 [place] [address] [address] December, [place] [address] [address] Oct, [place] [address] [address] Oct, 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 ; Acute upper respiratory infection, unspecified J06.9 and Other viral agents as the cause of diseases classified elsewhere B97.89 [place] [address] [address] Jul, [facility] [address] [place] [id number] [place] [address] Jul, [facility] [address] [address] Jul, Migraine without aura and without status migrainosus, not intractable G43.009 [facility] [address] [address] Jun, [facility] [address] [address] May, Migraine without aura and without status migrainosus, not intractable G43.009 [facility] [address] [address] May, [facility] [address] [address] May, [facility] [address] [place] [id number] [place] [id number] Mar, Dental examination Z01.20 [facility] [address] [address] Mar, [facility] [address] [address] Jan, Onychomycosis B35.1 [facility] [address] [address] Jan, [facility] [address] [address] December, Dental caries K02.9 [facility] [address] [address] Nov, Dental examination Z01.20 [facility] [address] [address] Oct, Dental examination Z01.20 [facility] [address] [address] Oct, [facility] [address] [address] Oct, Migraine G43.909 [facility] [address] [address] Sep, Onychomycosis B35.1 [facility] [address] [address] Sep, [facility] [address] [address] Aug, [facility] [address] [address] Jul, [place] [address] [address] Apr, [place] [address] [address] Apr, Right anterior knee pain 719.[address] [address] Mar, Tendonitis 726.90 ; HTN (hypertension) 4 01.9 ; Tremors of nervous system 781.0 and Anxiety 300.[address] [address] Mar, Thrush 112.0 [place] [address] [address] Feb, [place] [address] [address] Feb, Tremors of nervous system 781.0 and Carp al tunnel syndrome 354.0 [facility] [address] [address] Jan, Anxiety 300.00 ; Tremors of nervous syst em 781.0 and Tendonitis 726.90 [place] [address] [address] Jan, Anxiety 300.00 ; Tremors of nervous syst em 781.0 and Tendonitis 726.90 [place] [address] [place] [id number] [place] [address] Jan, Sinusitis 473.9 [facility] [address] [id number] [place] [address] December, [facility] [address] [address] [id number] [place] [address] December, [facility] [address] [address] [id number] [place] [address] December, [facility] [address] [address] [id number] [place] [address] December, [facility] [address] [id number] [place] [address] December, [facility] [address] [address] [id number] [place] [address] Nov, [facility] [address] [place] [id number] [place] [address] Nov, [facility] [address] [place] [id number] [place] [address] Sep, [facility] [address] [place] [id number] [place] [address] Sep, [facility] [address] [place] [id number] [place] [address] Sep, [facility] [address] [place] [id number] [place] [address] Sep, [facility] [address] [place] [id number] [place] [address] Jul, [facility] [address] [id number] [place] [address] Jul, [facility] [address] [place] [id number] [place] [address] Jul, [facility] [address] [place] [id number] [place] [address] Jul, [facility] [address] [place] [id number] [place] [address] Jul, [facility] [address] [facility] [id number] [place] [address] Jul, [facility] [address] [facility] [id number] [place] [address] Jul, [facility] [address] [id number] [place] [address] Jul, [facility] [address] [id number] [place] [address] Jul, [facility] [address] [id number] [place] [address] Jul, [facility] [address] [id number] [place] [address] Jun, [facility] [address] [id number] [place] [address] Jun, [facility] [address] [id number] [place] [address] Jun, [facility] [address] [id number] [place] [address] Jun, [facility] [address] [id number] [place] [address] May, [facility] [address] [id number] [place] [address] May, [facility] [address] [id number] [place] [address] May, [facility] [address] [id number] [place] [address] 14 May, 2014 [facility] [address] [id number] [place] [address] 17 Apr, 2014 [facility] [address] [id number] [place] [address] 17 Apr, 2014 [facility] [address] [id number] [place] [address] Apr, 2013 [facility] [address] [facility] [id number] [place] [address] 17 Apr, 2013 [facility] [address] [id number] [place] [address] 16 Apr, 2014 [facility] [address] [facility] [id number] [place] [address] Apr, [facility] [address] [id number] [place] [address] Apr, [facility] [address] [facility] [id number] [place] [address] Apr, [facility] [address] [id number] [place] [address] Mar, [facility] [address] [id number] [place] [address] Mar, [facility] [address] [id number] [place] [address] Feb, [facility] [address] [id number] [place] [address] Feb, [facility] [address] [id number] [place] [address] Feb, [facility] [address] [id number] [place] [address] Feb, [facility] [address] [id number] [place] [address] Jan, [facility] [address] [id number] [place] [address] Jan, [facility] [address] [id number] [place] [address] Jan, [facility] [address] [id number] [place] [address] Jan, [facility] [address] [id number] [place] [address] Jan, [facility] [address] [id number] [place] [address] Jan, [facility] [address] [id number] [place] [address] December, [facility] [address] [id number] [place] [address] December, [facility] [address] [id number] [place] [address] December, [facility] [address] [id number] [place] [address] December, [facility] [address] [id number] [place] [address] December, [facility] [address] [id number] [place] [address] Nov, [facility] [address] [id number] [place] [address] Nov, [facility] [address] [id number] [place] [address] Nov, [facility] [address] [id number] [place] [address] Nov, [facility] [address] [id number] [place] [address] Nov, [facility] [address] [id number] [place] [address] Nov, [facility] [address] [id number] [place] [address] Oct, [facility] [address] [id number] [place] [address] Oct, [facility] [address] [id number] [place] [address] Oct, [facility] [address] [id number] [place] [address] Oct, [facility] [address] [id number] [place] [address] Sep, [facility] [address] [id number] [place] [address] 14 Sep, 2013 [facility] [address] [id number] [place] [address] Sep, [facility] [address] [id number] [place] [address] Sep, [facility] [address] [id number] [place] [address] Sep, [facility] [address] [id number] [place] [address] Sep, [facility] [address] [id number] [place] [address] Sep, [facility] [address] [id number] [place] [address] Sep, [facility] [address] [id number] [place] [address] Sep, [facility] [address] [id number] [place] [address] Sep, [facility] [address] [id number] [place] [address] Sep, [facility] [address] [id number] [place] [address] Sep, [facility] [address] [id number] [place] [address] Sep, [facility] [address] [id number] [place] [address] Aug, [facility] [address] [id number] [place] [address] Aug, [facility] [address] [id number] [place] [address] Jul, [facility] [address] [id number] [place] [address] Jul, [facility] [address] [id number] [place] [address] Jun, [facility] [address] [facility] [id number] [place] [address] Jun, [facility] [address] [id number] [place] [address] May, [facility] [address] [id number] [place] [address] Apr, [facility] [address] [id number] [place] [address] Mar, [facility] [address] [facility] [id number] [place] [address] Jan, [facility] [address] [id number] [place] [address] December, [facility] [address] [id number] [place] [address] December, [facility] [address] [id number] [place] [address] Oct, [facility] [address] [id number] [place] [address] Oct, [facility] [address] [id number] [place] [address] Sep, [facility] [address] [id number] [place] [address] Aug, [facility] [address] [id number] [place] [address] Aug, [facility] [address] [id number] [place] [address] Jul, [facility] [address] [id number] [place] [address] Jul, [facility] [address] [id number] [place] [address] Mar, [facility] [address] [id number] [place] [address] Mar, [facility] [address] [id number] [place] [address] Feb, [facility] [address] [id number] [place] [address] Feb, [facility] [address] [id number] [place] [address] Feb, [facility] [address] [id number] [place] [address] Jan, [facility] [address] [id number] [place] [address] Nov, [facility] [address] [id number] [place] [address] Sep, [facility] [id number] [place] [address] Sep, [facility] [id number] [place] [address] Sep, [facility] [id number] [place] [address] Aug, [facility] [address] [id number] [place] [address] Aug, [facility] [id number] [place] [address] Aug, [facility] [id number] [place] [address] Jun, [facility] [id number] [place] [address] Jun, [facility] [address] [id number] [place] [address] Jun, [facility] [id number] [place] [address] Jun, [facility] [address] [id number] [place] [address] May, [facility] [id number] [place] [address] May, [facility] [address] [id number] [place] [address] May, [facility] [address] [id number] [place] [address] May, [facility] [address] [id number] [place] [address] Jun, [facility] [address] [id number] [place] [address] December, [facility] [address] [id number] [place] [address] May, IMMUNIZATIONS No Known Immunizations SOCIAL HISTORY Never Assessed REASON FOR VISIT PLAN OF CARE VITAL SIGNS Height 64 in 2013-11-27 Weight 147.5 lbs 2013-11-27 Temperature 98.2 degrees Fahrenheit 2013-11-27 Heart Rate 76 bpm 2013-11-27 Respiratory Rate 16 2013-11-27 Blood pressure systolic 122 mmHg 2013-11-27 Blood pressure diastolic 82 mmHg 2013-11-27 MEDICATIONS No Known Medications RESULTS No Results [...]
--- OUTSIDE RECORDS SUMMARY | 2020-03-17 19:13 | XMS REPORT ---
Author Author Ann Wilson Organization [facility] Address [address] [place] [address] Care Team Providers Care Buggy Operator Name Role Phone LUCIE Wilson Unavailable PROBLEMS Type Condition ICD9-CM Code HQD21-VX Code Onset Dates Condition S tatus SNOMED Code Problem Perimenopausal N95.1 Active 41352 [id number] Problem Seasonal allergic rhinitis, unspecified allergic rhinitis trigger J30.2 Active 200508779 Problem Chronic migraine G43.709 Active 377 92363 Problem Anxiety F41.9 Active 87082991 Problem Vitamin D deficiency E55.9 Active 71629115 Problem Essential hypertension I10 Active 32755263 Problem Iron deficiency anemia, unspecified iron deficiency an emia type D50.9 Active 96824952 Problem Carpal tunnel syndrome, bilateral G56.03 Active [id number] Problem Daytime hypersomnia G47.19 Active 92083336946946 Problem Nocturnal dyspnea R06.00 Active 24 8219326 ALLERGIES No Information ENCOUNTERS Encounter Location Date Diagnosis [place] [address] [place] [id number] [place] [address] Apr, Chronic migraine G43.709 ; E ssential hypertension I10 ; Iron deficiency anemia, unspecified iron deficiency anemia type D50.9 and Long-term use of high-risk medication Z79.899 [facility] [address] [facility] [id number] [address] [place] [address] Feb, Seasonal allergic rhinitis, unspecified allergic rhinitis trigger J30.2 and Chronic migraine G43.709 [facility] [address] [place] [id number] [address] [place] [address] Feb, Anxiety F41.9 [facility] [address] [place] [id number] [place] [address] Feb, Exposure to pertussis Z20.81 8 [facility] [address] [place] [id number] [place] [address] Jan, [place] [address] [place] [id number] [place] [address] Jan, Chronic migraine G43.709 and Anxiety F41.9 [place] [address] [address] December, Anxiety F41.9 [place] [address] [facility] [id number] [address] [place] [address] Nov, Chronic migraine G43.709 ; S easonal allergic rhinitis, unspecified allergic rhinitis trigger J30.2 ; Vitamin D deficiency E55.9 ; Nocturnal dyspnea R06.00 ; Daytime hypersomnia G47.19 and Anxiety F41.9 [place] [address] [place] [id number] [place] [address] Nov, Chronic migraine G43.709 [place] [address] [place] [address] Oct, [place] [address] [address] Sep, Carpal tunnel syndrome, bila teral G56.03 [place] [address] [place] [address] Sep, Chronic migraine G43.709 [place] [address] [place] [id number] [address] [place] [address] Aug, [place] [address] [place] [id number] [place] [address] Jul, Seasonal allergic rhinitis, unspecified allergic rhinitis trigger J30.2 [facility] [address] [place] [id number] [address] [place] [address] Jul, Seasonal allergic rhinitis, unspecified allergic rhinitis trigger J30.2 [place] [address] [place] [id number] [place] [address] Jul, Chronic migraine G43.709 [facility] [address] [facility] [id number] [address] [place] [address] Jun, [facility] [address] [id number] [address] [place] [id number] May, Dental caries K02.9 [facility] [address] [place] [id number] [address] [place] [address] May, Chronic migraine G43.709 [facility] [address] [facility] [id number] [address] [place] [address] Apr, Chronic migraine G43.709 ; I yvette deficiency anemia, unspecified iron deficiency anemia type D50.9 ; Perimenopausal N95.1 and Vitamin D deficiency E55.9 [place] [address] [place] [address] Mar, [place] [address] [place] [id number] [place] [address] Mar, Seasonal allergic rhinitis, unspecified allergic rhinitis trigger J30.2 [place] [address] [place] [id number] [place] [address] Mar, Chronic migraine G43.709 [place] [address] [place] [address] Mar, [facility] [address] [place] [id number] [address] [place] [address] Mar, Chronic migraine G43.709 ; I rregular menses N92.6 ; Iron deficiency anemia, unspecified iron deficiency anemia type D50.9 and General medical exam Z00.00 [facility] [address] [facility] [id number] [address] [place] [address] Mar, Chronic migraine G43.709 ; I yvette deficiency anemia, unspecified iron deficiency anemia type D50.9 ; Irregular menses N92.6 and General medical exam Z00.00 [facility] [address] [id number] [address] [place] [id number] Feb, Dental examination Z01.20 [facility] [address] [id number] [address] [place] [address] Feb, Chronic tension-type headach e, 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 and Seasonal allergic rhinitis, unspecified allergic rhinitis trigger J30.2 [facility] [address] [facility] [id number] [address] [place] [address] Feb, [facility] [address] [facility] [id number] [address] [place] [address] Jan, Seasonal allergic rhinitis, unspecified allergic rhinitis trigger J30.2 [facility] [address] [facility] [id number] [address] [place] [address] December, Chronic tension-type headach e, 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 [facility] [address] [id number] [address] [place] [id number] December, Dental examination Z01.20 [facility] [address] [facility] [id number] [address] [place] [address] December, [facility] [address] [facility] [id number] [address] [place] [address] Oct, [facility] [address] [facility] [id number] [address] [place] [address] Oct, [facility] [address] [facility] [id number] [address] [place] [address] Oct, Sore throat J02.9 and Season al allergic rhinitis, unspecified allergic rhinitis trigger J30.2 [facility] [address] [facility] [id number] [address] [place] [address] Oct, [facility] [address] [facility] [id number] [address] [place] [address] Sep, [facility] [address] [facility] [id number] [address] [place] [address] Aug, Menstrual periods irregular N92.6 ; Chronic tension-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, 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 ; Acute upper respiratory infection, unspecified J06.9 and Other viral agents as the cause of diseases classified elsewhere B97.89 [facility] [address] [id number] [address] [place] [address] Jul, [facility] [address] [id number] [address] [place] [address] Jul, [facility] [address] [id number] [address] [place] [address] Jul, Migraine without aura and wi thout status migrainosus, not intractable G43.009 [facility] [address] [id number] [address] [place] [address] Jun, [facility] [address] [facility] [id number] [address] [place] [address] May, Migraine without aura and wi thout status migrainosus, not intractable G43.009 [facility] [address] [id number] [address] [place] [address] May, [facility] [address] [facility] [id number] [address] [place] [address] May, [facility] [address] [id number] [address] [place] [id number] Mar, Dental examination Z01.20 [facility] [address] [id number] [address] [place] [address] Mar, [facility] [address] [id number] [address] [place] [address] Jan, Onychomycosis B35.1 [facility] [address] [id number] [address] [place] [address] Jan, [facility] [address] [facility] [id number] [address] [place] [address] December, Dental caries K02.9 [facility] [address] [id number] [address] [place] [address] Nov, Dental examination Z01.20 [facility] [address] [place] [id number] [address] [place] [address] Oct, Dental examination Z01.20 [facility] [address] [facility] [id number] [address] [place] [address] Oct, [facility] [address] [place] [id number] [address] [place] [address] Oct, Migraine G43.909 [facility] [address] [place] [id number] [address] [place] [address] Sep, Onychomycosis B35.1 [facility] [address] [place] [id number] [place] [address] Sep, [facility] [address] [place] [id number] [address] [place] [address] Aug, [facility] [address] [place] [id number] [address] [place] [address] Jul, [facility] [address] [place] [id number] [place] [address] Apr, [facility] [address] [place] [id number] [address] [place] [address] Apr, Right anterior knee pain 719 .46 [facility] [address] [place] [id number] [address] [place] [address] Mar, Tendonitis 726.90 ; HTN (hyp ertension) 401.9 ; Tremors of nervous system 781.0 and Anxiety 300.00 [facility] [address] [place] [id number] [address] [place] [address] Mar, Thrush 112.0 [facility] [address] [place] [id number] [address] [place] [address] Feb, [facility] [address] [place] [id number] [address] [place] [address] Feb, Tremors of nervous system 78 1.0 and Carpal tunnel syndrome 354.0 [facility] [address] [id number] [address] [place] [address] Jan, Anxiety 300.00 ; Tremors of nervous system 781.0 and Tendonitis 726.90 [facility] [address] [facility] [id number] [address] [place] [address] Jan, Anxiety 300.00 ; Tremors of nervous system 781.0 and Tendonitis 726.90 [facility] [address] [id number] [address] [place] [address] Jan, Sinusitis 473.9 [facility] [address] [facility] [id number] [address] [place] [address] December, [facility] [address] [facility] [id number] [address] [place] [address] December, [facility] [address] [id number] [address] [place] [address] December, [facility] [address] [id number] [address] [place] [address] December, [facility] [address] [facility] [id number] [address] [place] [address] December, [facility] [address] [facility] [id number] [address] [place] [address] Nov, [facility] [address] [id number] [address] [place] [address] Nov, [facility] [address] [id number] [address] [place] [address] Sep, [facility] [address] [facility] [id number] [address] [place] [address] Sep, [facility] [address] [facility] [id number] [address] [place] [address] Sep, [facility] [address] [id number] [address] [place] [address], [place] [address] Sep, [facility] [address] [id number] [address] [place] [address], [place] [address] Jul, [facility] [address] [id number] [address] [place] [address], [place] [address] Jul, [facility] [address] [id number] [address] [place] [address], [place] [address] Jul, [facility] [address] [id number] [address] [place] [address], [place] [address] Jul, [facility] [address] [id number] [address] [place] [address], [place] [address] Jul, [facility] [address] [id number] [address] [place] [address], [place] [address] Jul, [facility] [address] [id number] [address] [place] [address], [place] [address] Jul, [facility] [address] [id number] [address] [place] [address], [place] [address] Jul, [facility] [address] [id number] [address] [place] [address], [place] [address] Jul, [facility] [address] [id number] [address] [place] [address], [place] [address] Jul, [facility] [address] [id number] [address] [place] [address], [place] [address] Jun, [facility] [address] [id number] [address] [place] [address], [place] [address] Jun, [facility] [address] [id number] [address] [place] [address], [place] [address] Jun, [facility] [address] [id number] [address] [place] [address], [place] [address] Jun, [facility] [address] [id number] [address] [place] [address], [place] [address] May, [facility] [address] [id number] [address] [place] [address], [place] [address] 28 May, 2014 [facility] [address] [id number] [address] [place] [address], [place] [address] May, [facility] [address] [id number] [address] [place] [address], [place] [address] 14 May, 2014 [facility] [address] [id number] [address] [place] [address], [place] [address] 17 Apr, 2013 [facility] [address] [id number] [address] [place] [address], [place] [address] 17 Apr, 2014 [facility] [address] [id number] [address] [place] [address], [place] [address] 17 Apr, 2013 [facility] [address] [id number] [address] [place] [address], [place] [address] 17 Apr, 2013 [facility] [address] [id number] [address] [place] [address], [place] [address] 16 Apr, 2013 [facility] [address] [id number] [address] [place] [address], [place] [address] 16 Apr, 2014 [facility] [address] [id number] [address] [place] [address], [place] [address] 03 Apr, 2014 [facility] [address] [id number] [address] [place] [address], [place] [address] Apr, [facility] [address] [id number] [address] [place] [address], [place] [address] Mar, [facility] [address] [id number] [address] [place] [address], [place] [address] Mar, [facility] [address] [id number] [address] [place] [address], [place] [address] Feb, [facility] [address] [id number] [address] [place] [address], [place] [address] Feb, [facility] [address] [id number] [address] [place] [address] Feb, [facility] [address] [id number] [address] [place] [address], [place] [address] Feb, [facility] [address] [id number] [address] [place] [address], [place] [address] Jan, [facility] [address] [id number] [address] [place] [address], [place] [address] Jan, [facility] [address] [id number] [address] [place] [address], [place] [address] Jan, [facility] [address] [id number] [address] [place] [address], [place] [address] Jan, [facility] [address] [id number] [address] [place] [address], [place] [address] Jan, [facility] [address] [id number] [address] [place] [address], [place] [address] Jan, [facility] [address] [id number] [address] [place] [address], [place] [address] December, [facility] [address] [id number] [address] [place] [address], [place] [address] December, [facility] [address] [id number] [address] [place] [address], [place] [address] December, [facility] [address] [id number] [address] [place] [address], [place] [address] December, [facility] [address] [id number] [address] [place] [address], [place] [address] December, [facility] [address] [id number] [address] [place] [address], [place] [address] Nov, [facility] [address] [id number] [address] [place] [address], [place] [address] Nov, [facility] [address] [id number] [address] [place] [address], [place] [address] Nov, [facility] [address] [id number] [facility] [address] Nov, [facility] [address] [id number] [address] [place] [address], [place] [address] Nov, [facility] [address] [id number] [address] [place] [address], [place] [address] Nov, [facility] [address] [id number] [address] [place] [address], [place] [address] Oct, [facility] [address] [id number] [address] [place] [address], [place] [address] Oct, [facility] [address] [id number] [address] [place] [address], [place] [address] Oct, [facility] [address] [id number] [address] [place] [address], [place] [address] Oct, [facility] [address] [id number] [address] [place] [address], [place] [address] 14 Sep, 2013 [facility] [address] [id number] [address] [place] [address], [place] [address] 14 Sep, 2013 [facility] [address] [id number] [address] [place] [address], [place] [address] 10 Sep, 2013 [facility] [address] [id number] [address] [place] [address], [place] [address] 10 Sep, 2013 [facility] [address] [id number] [address] [place] [address], [place] [address] 07 Sep, 2013 [facility] [address] [id number] [address] [place] [address], [place] [address] 06 Sep, 2013 [facility] [address] [id number] [address] [place] [address], [place] [address] 06 Sep, 2013 [facility] [address] [id number] [address] [place] [address], [place] [address] 05 Sep, 2013 [facility] [address] [id number] [address] [place] [address] Sep, [facility] [address] [id number] [address] [place] [address], [place] [address] Sep, [facility] [address] [id number] [address] [place] [address], [place] [address] Sep, [facility] [address] [id number] [address] [place] [address], [place] [address] Sep, [facility] [address] [id number] [address] [place] [address], [place] [address] Sep, [facility] [address] [id number] [address] [place] [address], [place] [address] Aug, [facility] [address] [id number] [address] [place] [address], [place] [address] Aug, [facility] [address] [id number] [address] [place] [address], [place] [address] Jul, [facility] [address] [id number] [address] [place] [address], [place] [address] Jul, [facility] [address] [id number] [address] [place] [address], [place] [address] Jun, [facility] [address] [id number] [address] [place] [address], [place] [address] Jun, [facility] [address] [id number] [address] [place] [address], [place] [address] May, [facility] [address] [id number] [address] [place] [address] Apr, [facility] [address] [id number] [address] [place] [address], [place] [address] Mar, [facility] [address] [id number] [address] [place] [address], [place] [address] Jan, [facility] [address] [id number] [address] [place] [address], [place] [address] December, [facility] [address] [id number] [address] [place] [address], [place] [address] December, [facility] [address] [id number] [address] [place] [address], [place] [address] Oct, [facility] [address] [id number] [address] [place] [address], [place] [address] Oct, [facility] [address] [id number] [address] [place] [address], [place] [address] Sep, [facility] [address] [id number] [address] [place] [address], [place] [address] Aug, [facility] [place] [address] [id number] [address] [place] [address], [place] [address] Aug, [facility] [address] [id number] [address] [place] [address], [place] [address] Jul, [facility] [address] [id number] [address] [place] [address], [place] [address] Jul, [facility] [address] [id number] [address] [place] [address], [place] [address] Mar, [facility] [address] [id number] [address] [place] [address], [place] [address] Mar, [facility] [address] [id number] [address] [place] [address], [place] [address] Feb, [facility] [place] [address] [id number] [address] [place] [address], [place] [address] Feb, [facility] [address] [id number] [address] [place] [address], [place] [address] Feb, [facility] [address] [id number] [address] [place] [address], [place] [address] Jan, [facility] [address] [id number] [address] [place] [address], [place] [address] Nov, [facility] [address] [id number] [address] [place] [address] 17 Sep, 2011 [facility] [address] [id number] [address] [place] [address], [place] [address] 15 Sep, 2011 [facility] [address] [id number] [address] [place] [address] 10 Sep, 2011 [facility] [address] [id number] [address] [place] [address], [place] [address] Aug, [facility] [address] [id number] [address] [place] [address], [place] [address] Aug, [facility] [address] [id number] [address] [place] [address], [place] [address] Aug, [facility] [address] [id number] [address] [place] [address], [place] [address] Jun, [facility] [address] [id number] [address] [place] [address] Jun, [facility] [address] [id number] [address] [place] [address], [place] [address] Jun, [facility] [address] [id number] [address] [place] [address], [place] [address] Jun, [facility] [address] [id number] [address] [place] [address], [place] [address] May, [facility] [address] [id number] [address] [place] [address], [place] [address] May, [facility] [address] [id number] [address] [place] [address] 18 May, 2011 [facility] [address] [id number] [address] [place] [address] 14 May, 2011 [facility] [address] [id number] [address] [place] [address] Jun, [facility] [address] [id number] [address] [place] [address] December, [facility] [address] [facility] [id number] [address] [place] [address] May, IMMUNIZATIONS No Known Immunizations SOCIAL HISTORY Never Assessed REASON FOR VISIT PLAN OF CARE VITAL SIGNS Height 64 in 2014-01-31 Weight 141.31 lbs 2014-01-31 Temperature 97.6 degrees Fahrenheit 2014-01-31 Heart Rate 74 bpm 2014-01-31 Respiratory Rate 16 2014-01-31 Blood pressure systolic 128 mmHg 2014-01-31 Blood pressure diastolic 88 mmHg 2014-01-31 MEDICATIONS No Known Medications RESULTS No Results PROCEDURES Procedure Date Ordered Result Body Site COMPLETE CBC W/AUTO DIFF WBC January 31, 2014 URINE TEST January 31, 2014 VENIPUNCT, ROUTINE* January 31, 2014 INSTRUCTIONS MEDICATIONS ADMINISTERED No Known Medications [...]
--- OUTSIDE RECORDS SUMMARY | 2020-03-17 19:13 | XMS REPORT ---
Author Author Ann Whitley Doctor Organization [facility] Address Unknown Phone Unavailable Care Team Providers Care Water Service Dispatcher Name Role Phone Migration, Doctor Unavailable Unavailable PROBLEMS Type Condition ICD9-CM Code BUB31-HV Code Onset Dates Condition S tatus SNOMED Code Problem Perimenopausal N95.1 Active 30302 [id number] Problem Seasonal allergic rhinitis, unspecified allergic rhinitis trigger J30.2 Active 582810989 Problem Chronic migraine G43.709 Active 377 14088 Problem Anxiety F41.9 Active 99266835 Problem Vitamin D deficiency E55.9 Active 01000843 Problem Essential hypertension I10 Active 01048308 Problem Iron deficiency anemia, unspecified iron deficiency an emia type D50.9 Active 21694019 Problem Carpal tunnel syndrome, bilateral G56.03 Active [id number] Problem Daytime hypersomnia G47.19 Active 31121955594057 Problem Nocturnal dyspnea R06.00 Active 24 1984953 ALLERGIES No Information ENCOUNTERS Encounter Location Date Diagnosis [place] [address] [address] Apr, Chronic migraine G43.709 ; Essential hyp ertension I10 ; Iron deficiency anemia, unspecified iron deficiency anemia type D50.9 and Long-term use of high-risk medication Z79.899 [place] [address] [address] Feb, Seasonal allergic rhinitis, unspecified allergic rhinitis trigger J30.2 and Chronic migraine G43.709 [place] [address] [address] Feb, Anxiety F41.9 [place] [address] [address] Feb, Exposure to pertussis Z20.818 [place] [address] [address] Jan, [facility] [address] [address] Jan, Chronic migraine G43.709 and Anxiety F41 .9 [facility] [address] [address] December, Anxiety F41.9 [facility] [address] [address] Nov, Chronic migraine G43.709 ; Seasonal ivon rgic rhinitis, unspecified allergic rhinitis trigger J30.2 ; Vitamin D deficiency E55.9 ; Nocturnal dyspnea R06.00 ; Daytime hypersomnia G47.19 and Anxiety F41.9 [facility] [address] [address] Nov, Chronic migraine G43.709 [facility] [address] [address] Oct, [facility] [address] [address] Sep, Carpal tunnel syndrome, bilateral G56.03 [facility] [address] [address] Sep, Chronic migraine G43.709 [facility] [address] [address] Aug, [facility] [address] [address] Jul, Seasonal allergic rhinitis, unspecified allergic rhinitis trigger J30.2 [facility] [address] [address] Jul, Seasonal allergic rhinitis, unspecified allergic rhinitis trigger J30.2 [facility] [address] [address] Jul, Chronic migraine G43.709 [facility] [address] [address] Jun, [facility] [address] [id number] May, Dental caries K02.9 [place] [address] [address] May, Chronic migraine G43.709 [place] [address] [address] Apr, Chronic migraine G43.709 ; Iron deficien cy anemia, unspecified iron deficiency anemia type D50.9 ; Perimenopausal N95.1 and Vitamin D deficiency E55.9 [place] [address] [address] Mar, [place] [address] [address] Mar, Seasonal allergic rhinitis, unspecified allergic rhinitis trigger J30.2 [place] [address] [address] Mar, Chronic migraine G43.709 [place] [address] [address] Mar, [place] [address] [address] Mar, Chronic migraine G43.709 ; Irregular men ses N92.6 ; Iron deficiency anemia, unspecified iron deficiency anemia type D50.9 and General medical exam Z00.00 [place] [address] [address] Mar, Chronic migraine G43.709 ; Iron deficien cy anemia, unspecified iron deficiency anemia type D50.9 ; Irregular menses N92.6 and General medical exam Z00.00 [facility] [address] [id number] Feb, Dental examination Z01.20 [place] [address] [address] 18 Feb, 2017 Chronic tension-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, intractab le G44.221 and Seasonal allergic rhinitis, unspecified allergic rhinitis trigger J30.2 [facility] [address] [place] [id number] [place] [address] Feb, [facility] [address] [address] Jan, Seasonal allergic rhinitis, unspecified allergic rhinitis trigger J30.2 [facility] [address] [place] [id number] [place] [address] December, Chronic tension-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, intractab le G44.221 [facility] [address] [facility] [place] [id number] December, Dental examination Z01.20 [place] [address] [address] December, [facility] [address] [address] Oct, [facility] [address] [address] Oct, [facility] [address] [facility] [id number] [place] [address] Oct, Sore throat J02.9 and Season al allergic rhinitis, unspecified allergic rhinitis trigger J30.2 [facility] [address] [place] [id number] [place] [address] Oct, [facility] [address] [address] Sep, [facility] [address] [address] Aug, Menstrual periods irregular N92.6 ; 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 Pharmacist danielle tension-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, 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 ; Acute upper respiratory infection, unspecified J06.9 and Other viral agents as the cause of diseases classified elsewhere B97.89 [facility] [address] [address] Jul, [facility] [address] [address] Jul, [place] [address] [place] [id number] [place] [address] Jul, Migraine without aura and without status migrainosus, not intractable G43.009 [facility] [address] [place] [id number] [place] [address] Jun, [facility] [address] [address] May, Migraine without aura and without status migrainosus, not intractable G43.009 [facility] [address] [address] May, [facility] [address] [address] May, [facility] [address] [facility] [place] [id number] Mar, Dental examination Z01.20 [facility] [address] [address] Mar, [facility] [address] [address] Jan, Onychomycosis B35.1 [facility] [address] [address] Jan, [facility] [address] [address] December, Dental caries K02.9 [facility] [address] [address] Nov, Dental examination Z01.20 [facility] [address] [address] Oct, Dental examination Z01.20 [facility] [address] [address] Oct, [facility] [address] [address] Oct, Migraine G43.909 [facility] [address] [address] Sep, Onychomycosis B35.1 [facility] [address] [address] Sep, [facility] [address] [address] Aug, [facility] [address] [address] Jul, [facility] [address] [address] Apr, [facility] [address] [address] Apr, Right anterior knee pain 719.46 [place] [address] [address] Mar, Tendonitis 726.90 ; HTN (hypertension) 4 01.9 ; Tremors of nervous system 781.0 and Anxiety 300.00 [place] [address] [address] Mar, Thrush 112.0 [place] [address] [address] Feb, [place] [address] [address] Feb, Tremors of nervous system 781.0 and Carp al tunnel syndrome 354.0 [place] [address] [address] Jan, Anxiety 300.00 ; Tremors of nervous syst em 781.0 and Tendonitis 726.90 [place] [address] [address] Jan, Anxiety 300.00 ; Tremors of nervous syst em 781.0 and Tendonitis 726.90 [place] [address] [address] Jan, Sinusitis 473.9 [place] [address] [id number] [place] [address] December, [facility] [address] [id number] [place] [address] December, [facility] [address] [id number] [place] [address] December, [facility] [address] [id number] [place] [address] December, [facility] [address] [id number] [place] [address] December, [facility] [address] [id number] [place] [address] Nov, [facility] [address] [id number] [place] [address] Nov, [facility] [address] [id number] [place] [address] Sep, [facility] [address] [id number] [place] [address] Sep, [facility] [address] [id number] [place] [address] Sep, [facility] [address] [id number] [place] [address] Sep, [facility] [address] [id number] [place] [address] Jul, [facility] [address] [id number] [place] [address] Jul, [facility] [address] [id number] [place] [address] Jul, [facility] [address] [id number] [place] [address] Jul, [facility] [address] [id number] [place] [address] Jul, [facility] [address] [id number] [place] [address] Jul, [facility] [address] [facility] [id number] [place] [address] Jul, [facility] [address] [facility] [id number] [place] [address] Jul, [facility] [address] [id number] [place] [address] Jul, [facility] [address] [id number] [place] [address] Jul, [facility] [address] [facility] [id number] [place] [address] Jun, [facility] [address] [id number] [place] [address] Jun, [facility] [address] [id number] [place] [address] Jun, [facility] [address] [id number] [place] [address] Jun, [facility] [address] [id number] [place] [address] May, [facility] [address] [id number] [place] [address] May, [facility] [address] [id number] [place] [address] May, [facility] [address] [id number] [place] [address] May, [facility] [address] [id number] [place] [address] Apr, [facility] [address] [id number] [place] [address] 17 Apr, 2014 [facility] [address] [id number] [place] [address] Apr, [facility] [address] [id number] [place] [address] Apr, 2013 [facility] [address] [id number] [place] [address] 16 Apr, 2013 [facility] [address] [id number] [place] [address] Apr, [facility] [address] [id number] [place] [address] Apr, [facility] [address] [id number] [place] [address] Apr, [facility] [address] [id number] [place] [address] Mar, [facility] [address] [facility] [id number] [place] [address] Mar, [facility] [address] [id number] [place] [address] Feb, [facility] [address] [id number] [place] [address] Feb, [facility] [address] [id number] [place] [address] Feb, [facility] [address] [id number] [place] [address] Feb, [facility] [address] [id number] [place] [address] Jan, [facility] [address] [id number] [place] [address] Jan, [facility] [address] [id number] [place] [address] Jan, [facility] [address] [id number] [place] [address] Jan, [facility] [address] [id number] [place] [address] Jan, [facility] [address] [id number] [place] [address] Jan, [facility] [address] [id number] [place] [address] December, [facility] [address] [id number] [place] [address] December, [facility] [address] [id number] [place] [address] December, [facility] [address] [id number] [place] [address] December, [facility] [address] [id number] [place] [address] December, [facility] [address] [id number] [place] [address] Nov, [facility] [address] [id number] [place] [address] Nov, [facility] [address] [id number] [place] [address] Nov, [facility] [address] [id number] [place] [address] Nov, [facility] [address] [id number] [place] [address] Nov, [facility] [address] [id number] [place] [address] Nov, [facility] [address] [id number] [place] [address] Oct, [facility] [address] [id number] [place] [address] Oct, [facility] [address] [id number] [place] [address] Oct, [facility] [address] [id number] [place] [address] Oct, [facility] [address] [id number] [place] [address] Sep, [facility] [address] [id number] [place] [address] Sep, [facility] [address] [id number] [place] [address] Sep, [facility] [address] [id number] [place] [address] Sep, [facility] [address] [id number] [place] [address] Sep, [facility] [address] [id number] [place] [address] Sep, [facility] [address] [id number] [place] [address] Sep, [facility] [address] [id number] [place] [address] Sep, [facility] [address] [id number] [place] [address] Sep, [facility] [address] [id number] [place] [address] Sep, [facility] [address] [id number] [place] [address] Sep, [facility] [address] [id number] [place] [address] Sep, [facility] [address] [id number] [place] [address] Sep, [facility] [address] [id number] [place] [address] Aug, [facility] [address] [id number] [place] [address] Aug, [facility] [address] [id number] [place] [address] Jul, [facility] [address] [id number] [place] [address] Jul, [facility] [address] [id number] [place] [address] Jun, [facility] [address] [place] [id number] [place] [address] Jun, [facility] [address] [id number] [place] [address] May, [facility] [address] [id number] [place] [address] Apr, [facility] [address] [id number] [place] [address] Mar, [facility] [address] [id number] [place] [address] Jan, [facility] [address] [id number] [place] [address] December, [facility] [address] [id number] [place] [address] December, [facility] [address] [id number] [place] [address] Oct, [facility] [address] [place] [id number] [place] [address] Oct, [facility] [address] [id number] [place] [address] Sep, [facility] [address] [id number] [place] [address] Aug, [facility] [address] [id number] [place] [address] Aug, [facility] [address] [id number] [place] [address] Jul, [facility] [address] [id number] [place] [address] Jul, [facility] [address] [id number] [place] [address] Mar, [facility] [address] [id number] [place] [address] Mar, [facility] [address] [id number] [place] [address] Feb, [facility] [address] [id number] [place] [address] Feb, [facility] [address] [id number] [place] [address] Feb, [facility] [address] [id number] [place] [address] Jan, [facility] [address] [id number] [place] [address] Nov, [facility] [address] [id number] [place] [address] Sep, [facility] [address] [id number] [place] [address] Sep, [facility] [address] [id number] [place] [address] Sep, [facility] [address] [id number] [place] [address] Aug, [facility] [address] [id number] [place] [address] Aug, [facility] [address] [id number] [place] [address] Aug, [facility] [id number] [place] [address] Jun, [facility] [address] [id number] [place] [address] Jun, [facility] [id number] [place] [address] Jun, [facility] [address] [id number] [place] [address] Jun, [facility] [id number] [place] [address] May, [facility] [address] [id number] [place] [address] May, [facility] [address] [id number] [place] [address] May, [facility] [address] [id number] [place] [address] May, [facility] [address] [id number] [place] [address] Jun, [facility] [address] [id number] [place] [address] December, [facility] [address] [id number] [place] [address] May, IMMUNIZATIONS No Known Immunizations SOCIAL HISTORY Never Assessed REASON FOR VISIT PLAN OF CARE VITAL SIGNS Blood pressure systolic 126 mmHg 2014-02-21 Blood pressure diastolic 84 mmHg 2014-02-21 MEDICATIONS No Known Medications RESULTS No Results PROCEDURES Procedure Date Ordered Result Body Site X-RAY EXAM OF SHOULDER February 21, 2014 INSTRUCTIONS MEDICATIONS ADMINISTERED No Known Medications [...]
--- OUTSIDE RECORDS SUMMARY | 2020-03-17 19:13 | XMS REPORT ---
Author Author Ann DENT Organization [facility] Address [address] [place] [address] Care Team Providers Care Penology Professor Name Role Phone PIYUSH DENT Unavailable PROBLEMS Type Condition ICD9-CM Code MPS24-MG Code Onset Dates Condition S tatus SNOMED Code Problem Perimenopausal N95.1 Active 99543 [id number] Problem Seasonal allergic rhinitis, unspecified allergic rhinitis trigger J30.2 Active 028372082 Problem Chronic migraine G43.709 Active 377 46001 Problem Anxiety F41.9 Active 99190348 Problem Vitamin D deficiency E55.9 Active 30523987 Problem Essential hypertension I10 Active 24743996 Problem Iron deficiency anemia, unspecified iron deficiency an emia type D50.9 Active 06043063 Problem Carpal tunnel syndrome, bilateral G56.03 Active [id number] Problem Daytime hypersomnia G47.19 Active 32679706911374 Problem Nocturnal dyspnea R06.00 Active 24 0566807 ALLERGIES No Information ENCOUNTERS Encounter Location Date Diagnosis [address] [address] Apr, Chronic migraine G43.709 ; Essential hyp ertension I10 ; Iron deficiency anemia, unspecified iron deficiency anemia type D50.9 and Long-term use of high-risk medication Z79.[address] [address] Feb, Seasonal allergic rhinitis, unspecified allergic rhinitis trigger J30.2 and Chronic migraine G43.[address] [address] Feb, Anxiety F41.[address] [address] Feb, Exposure to pertussis Z20.818 [place] [address] [address] Jan, [place] [address] [address] Jan, Chronic migraine G43.709 and Anxiety F41 .9 [place] [address] [address] December, Anxiety F41.9 [place] [address] [address] Nov, Chronic migraine G43.709 ; Seasonal ivon rgic rhinitis, unspecified allergic rhinitis trigger J30.2 ; Vitamin D deficiency E55.9 ; Nocturnal dyspnea R06.00 ; Daytime hypersomnia G47.19 and Anxiety F41.9 [place] [address] [address] Nov, Chronic migraine G43.709 [place] [address] [address] Oct, [place] [address] [address] Sep, Carpal tunnel syndrome, bilateral G56.03 [place] [address] [address] Sep, Chronic migraine G43.709 [place] [address] [address] Aug, [place] [address] [address] Jul, Seasonal allergic rhinitis, unspecified allergic rhinitis trigger J30.2 [place] [address] [address] Jul, Seasonal allergic rhinitis, unspecified allergic rhinitis trigger J30.2 [place] [address] [address] Jul, Chronic migraine G43.709 [place] [address] [address] Jun, [facility] [address] [id number] May, Dental caries K02.9 [place] [address] [address] May, Chronic migraine G43.709 [place] [address] [address] Apr, Chronic migraine G43.709 ; Iron deficien cy anemia, unspecified iron deficiency anemia type D50.9 ; Perimenopausal N95.1 and Vitamin D deficiency E55.9 [place] [address] [address] Mar, [place] [address] [address] Mar, Seasonal allergic rhinitis, unspecified allergic rhinitis trigger J30.2 [place] [address] [address] Mar, Chronic migraine G43.709 [place] [address] [address] Mar, [place] [address] [address] Mar, Chronic migraine G43.709 ; Irregular men ses N92.6 ; Iron deficiency anemia, unspecified iron deficiency anemia type D50.9 and General medical exam Z00.00 [place] [address] [address] Mar, Chronic migraine G43.709 ; Iron deficien cy anemia, unspecified iron deficiency anemia type D50.9 ; Irregular menses N92.6 and General medical exam Z00.00 [facility] [address] [id number] Feb, Dental examination Z01.20 [place] [address] [address] 18 Feb, 2017 Chronic tension-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, intractab le G44.221 and Seasonal allergic rhinitis, unspecified allergic rhinitis trigger J30.2 [facility] [address] [address] Feb, [facility] [address] [place] [id number] [place] [address] Jan, Seasonal allergic rhinitis, unspecified allergic rhinitis trigger J30.2 [facility] [address] [address] December, Chronic tension-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, intractab le G44.221 [facility] [address] [id number] [place] [id number] December, Dental examination Z01.20 [place] [address] [address] [id number] [place] [address] December, [place] [address] [address] Oct, [facility] [address] [address] Oct, [facility] [address] [facility] [place] [id number] [place] [address] Oct, Sore throat J02.9 and Season al allergic rhinitis, unspecified allergic rhinitis trigger J30.2 [place] [address] [place] [id number] [place] [address] Oct, [place] [address] [address] Sep, [place] [address] [address] Aug, Menstrual periods irregular N92.6 ; Medical Oncology Physician danielle tension-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, 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 ; Acute upper respiratory infection, unspecified J06.9 and Other viral agents as the cause of diseases classified elsewhere B97.89 [place] [address] [address] Jul, [place] [address] [place] [id number] [place] [address] Jul, [facility] [address] [place] [id number] [place] [address] Jul, Migraine without aura and without status migrainosus, not intractable G43.009 [facility] [address] [place] [id number] [place] [address] Jun, [facility] [address] [address] May, Migraine without aura and without status migrainosus, not intractable G43.009 [facility] [address] [address] May, [facility] [address] [address] May, [facility] [address] [id number] [place] [id number] Mar, Dental examination Z01.20 [facility] [address] [place] [id number] [place] [address] Mar, [facility] [address] [address] Jan, Onychomycosis B35.1 [facility] [address] [place] [id number] [place] [address] Jan, [facility] [address] [address] December, Dental caries K02.9 [facility] [address] [place] [id number] [place] [address] Nov, Dental examination Z01.20 [facility] [address] [address] Oct, Dental examination Z01.20 [facility] [address] [place] [id number] [place] [address] Oct, [facility] [address] [address] Oct, Migraine G43.909 [facility] [address] [address] Sep, Onychomycosis B35.1 [facility] [address] [address] Sep, [facility] [address] [address] Aug, [facility] [address] [address] Jul, [facility] [address] [address] Apr, [place] [address] [address] Apr, Right anterior knee pain 719.[address] [address] Mar, Tendonitis 726.90 ; HTN (hypertension) 4 01.9 ; Tremors of nervous system 781.0 and Anxiety 300.00 [place] [address] [address] Mar, Thrush [address] [address] Feb, [place] [address] [address] Feb, Tremors of nervous system 781.0 and Carp al tunnel syndrome 354.0 [facility] [address] [address] Jan, Anxiety 300.00 ; Tremors of nervous syst em 781.0 and Tendonitis 726.90 [facility] [address] [address] Jan, Anxiety 300.00 ; Tremors of nervous syst em 781.0 and Tendonitis 726.90 [place] [address] [place] [address] Jan, Sinusitis 473.9 [facility] [address] [id number] [place] [address] December, [facility] [address] [id number] [place] [address] December, [facility] [address] [id number] [place] [address] December, [facility] [address] [place] [id number] [place] [address] December, [facility] [address] [id number] [place] [address] December, [facility] [address] [place] [id number] [place] [address] Nov, [facility] [address] [place] [id number] [place] [address] Nov, [facility] [id number] [place] [address] Sep, [facility] [address] [place] [id number] [place] [address] Sep, [facility] [address] [place] [id number] [place] [address] Sep, [facility] [address] [place] [id number] [place] [address] Sep, [facility] [address] [place] [id number] [place] [address] Jul, [facility] [address] [id number] [place] [address] Jul, [facility] [address] [place] [id number] [place] [address] Jul, [facility] [address] [id number] [place] [address] Jul, [facility] [address] [id number] [place] [address] Jul, [facility] [address] [id number] [place] [address] Jul, [facility] [address] [id number] [place] [address] Jul, [facility] [address] [id number] [place] [address] Jul, [facility] [address] [id number] [place] [address] Jul, [facility] [address] [facility] [place] [id number] [place] [address] Jul, [facility] [address] [id number] [place] [address] Jun, [facility] [address] [id number] [place] [address] Jun, [facility] [address] [id number] [place] [address] Jun, [facility] [address] [id number] [place] [address] Jun, [facility] [address] [id number] [place] [address] May, [facility] [address] [id number] [place] [address] May, [facility] [address] [id number] [place] [address] 14 May, 2014 [facility] [address] [id number] [place] [address] 14 May, 2014 [facility] [address] [id number] [place] [address] 17 Apr, 2014 [facility] [address] [id number] [place] [address] 17 Apr, 2014 [facility] [address] [id number] [place] [address] 17 Apr, 2014 [facility] [address] [id number] [place] [address] 17 Apr, 2013 [facility] [address] [id number] [facility] [address] Apr, [facility] [address] [facility] [place] [id number] [place] [address] Apr, [facility] [address] [id number] [place] [address] Apr, [facility] [address] [facility] [place] [id number] [place] [address] Apr, [facility] [address] [facility] [place] [id number] [place] [address] Mar, [facility] [address] [id number] [place] [address] Mar, [facility] [address] [id number] [place] [address] Feb, [facility] [address] [id number] [place] [address] Feb, [facility] [address] [id number] [place] [address] Feb, [facility] [address] [id number] [place] [address] Feb, [facility] [address] [id number] [place] [address] Jan, [facility] [address] [id number] [place] [address] Jan, [facility] [address] [facility] [place] [id number] [place] [address] Jan, [facility] [address] [id number] [place] [address] Jan, [facility] [address] [id number] [place] [address] Jan, [facility] [address] [id number] [place] [address] Jan, [facility] [address] [id number] [place] [address] December, [facility] [address] [id number] [place] [address] December, [facility] [address] [id number] [place] [address] December, [facility] [address] [id number] [place] [address] December, [facility] [address] [id number] [place] [address] December, [facility] [address] [id number] [place] [address] Nov, [facility] [address] [id number] [place] [address] Nov, [facility] [address] [id number] [place] [address] Nov, [facility] [address] [id number] [place] [address] Nov, [facility] [address] [id number] [place] [address] Nov, [facility] [address] [id number] [place] [address] Nov, [facility] [address] [id number] [place] [address] Oct, [facility] [address] [id number] [place] [address] Oct, [facility] [address] [id number] [place] [address] Oct, [facility] [address] [id number] [place] [address] Oct, [facility] [address] [id number] [place] [address] 14 Sep, 2013 [facility] [address] [id number] [place] [address] 14 Sep, 2013 [facility] [address] [facility] [facility] [id number] [facility] [address] Sep, [facility] [address] [facility] [id number] [facility] [address] 10 Sep, 2013 [facility] [address] [id number] [facility] [place] [address] Sep, [facility] [address] [id number] [facility] [address] Sep, [facility] [address] [facility] [id number] [facility] [address] Sep, [facility] [address] [id number] [place] [address] Sep, [facility] [address] [id number] [place] [address] Sep, [facility] [address] [id number] [place] [address] Sep, [facility] [address] [id number] [place] [address] Sep, [facility] [address] [id number] [place] [address] Sep, [facility] [address] [id number] [place] [address] Sep, [facility] [address] [id number] [place] [address] Aug, [facility] [address] [id number] [place] [address] Aug, [facility] [address] [id number] [place] [address] Jul, [facility] [address] [id number] [place] [address] Jul, [facility] [address] [id number] [place] [address] Jun, [facility] [address] [id number] [place] [address] Jun, [facility] [address] [id number] [place] [address] May, [facility] [address] [id number] [place] [address] Apr, [facility] [address] [id number] [place] [address] Mar, [facility] [address] [id number] [place] [address] Jan, [facility] [address] [id number] [place] [address] December, [facility] [address] [id number] [place] [address] December, [facility] [address] [id number] [place] [address] Oct, [facility] [address] [id number] [place] [address] Oct, [facility] [address] [id number] [place] [address] Sep, [facility] [address] [id number] [place] [address] Aug, [facility] [address] [id number] [place] [address] Aug, [facility] [address] [id number] [place] [address] Jul, [facility] [address] [id number] [place] [address] Jul, [facility] [address] [id number] [place] [address] Mar, [facility] [address] [id number] [place] [address] Mar, [facility] [address] [id number] [place] [address] Feb, [facility] [address] [id number] [place] [address] Feb, [facility] [address] [id number] [place] [address] Feb, [facility] [address] [id number] [place] [address] Jan, [facility] [address] [id number] [place] [address] Nov, [facility] [address] [id number] [place] [address] Sep, [facility] [address] [id number] [place] [address] Sep, [facility] [address] [id number] [place] [address] Sep, [facility] [address] [id number] [place] [address] Aug, [facility] [address] [id number] [place] [address] Aug, [facility] [id number] [place] [address] Aug, [facility] [address] [id number] [place] [address] Jun, [facility] [id number] [place] [address] Jun, [facility] [address] [id number] [place] [address] Jun, [facility] [address] [id number] [place] [address] Jun, [facility] [address] [id number] [place] [address] May, [facility] [id number] [place] [address] May, [facility] [address] [id number] [place] [address] 18 May, 2011 [facility] [address] [id number] [place] [address] May, [facility] [address] [id number] [place] [address] Jun, [facility] [address] [id number] [place] [address] December, [facility] [address] [id number] [place] [address] May, IMMUNIZATIONS No Known Immunizations SOCIAL HISTORY [...]
--- OUTSIDE RECORDS SUMMARY | 2020-03-17 19:13 | XMS REPORT ---
Author Author Ann Tao Organization [facility] Address [address] [place] [address] Care Team Providers Care Admissions Coordinator Name Role Phone MANUEL Tao Unavailable PROBLEMS Type Condition ICD9-CM Code TVD30-RI Code Onset Dates Condition S tatus SNOMED Code Problem Perimenopausal N95.1 Active 11200 [id number] Problem Seasonal allergic rhinitis, unspecified allergic rhinitis trigger J30.2 Active 629624089 Problem Chronic migraine G43.709 Active 377 59499 Problem Anxiety F41.9 Active 26058583 Problem Vitamin D deficiency E55.9 Active 36693837 Problem Essential hypertension I10 Active 48645116 Problem Iron deficiency anemia, unspecified iron deficiency an emia type D50.9 Active 42518855 Problem Carpal tunnel syndrome, bilateral G56.03 Active [id number] Problem Daytime hypersomnia G47.19 Active 13443583373814 Problem Nocturnal dyspnea R06.00 Active 24 6394793 ALLERGIES No Information ENCOUNTERS Encounter Location Date Diagnosis [address] [address] Apr, Chronic migraine G43.709 ; Essential hyp ertension I10 ; Iron deficiency anemia, unspecified iron deficiency anemia type D50.9 and Long-term use of high-risk medication Z79.[address] [address] Feb, Seasonal allergic rhinitis, unspecified allergic rhinitis trigger J30.2 and Chronic migraine G43.[address] [address] Feb, Anxiety F41.[address] [address] Feb, Exposure to pertussis Z20.818 [place] [address] [address] Jan, [place] [address] [address] Jan, Chronic migraine G43.709 and Anxiety F41 .9 [place] [address] [address] December, Anxiety F41.9 [place] [address] [address] Nov, Chronic migraine G43.709 ; Seasonal ivon rgic rhinitis, unspecified allergic rhinitis trigger J30.2 ; Vitamin D deficiency E55.9 ; Nocturnal dyspnea R06.00 ; Daytime hypersomnia G47.19 and Anxiety F41.9 [place] [address] [address] Nov, Chronic migraine G43.709 [place] [address] [address] Oct, [place] [address] [address] Sep, Carpal tunnel syndrome, bilateral G56.03 [place] [address] [address] Sep, Chronic migraine G43.709 [place] [address] [address] Aug, [place] [address] [address] Jul, Seasonal allergic rhinitis, unspecified allergic rhinitis trigger J30.2 [place] [address] [address] Jul, Seasonal allergic rhinitis, unspecified allergic rhinitis trigger J30.2 [place] [address] [address] Jul, Chronic migraine G43.709 [place] [address] [address] Jun, [facility] [address] [id number] May, Dental caries K02.9 [place] [address] [address] May, Chronic migraine G43.709 [place] [address] [address] Apr, Chronic migraine G43.709 ; Iron deficien cy anemia, unspecified iron deficiency anemia type D50.9 ; Perimenopausal N95.1 and Vitamin D deficiency E55.9 [place] [address] [address] Mar, [place] [address] [address] Mar, Seasonal allergic rhinitis, unspecified allergic rhinitis trigger J30.2 [place] [address] [address] Mar, Chronic migraine G43.709 [place] [address] [address] Mar, [place] [address] [address] Mar, Chronic migraine G43.709 ; Irregular men ses N92.6 ; Iron deficiency anemia, unspecified iron deficiency anemia type D50.9 and General medical exam Z00.00 [place] [address] [address] Mar, Chronic migraine G43.709 ; Iron deficien cy anemia, unspecified iron deficiency anemia type D50.9 ; Irregular menses N92.6 and General medical exam Z00.00 [facility] [address] [id number] Feb, Dental examination Z01.20 [place] [address] [address] Feb, Chronic tension-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, intractab le G44.221 and Seasonal allergic rhinitis, unspecified allergic rhinitis trigger J30.2 [facility] [address] [address] Feb, [facility] [address] [address] Jan, Seasonal allergic rhinitis, unspecified allergic rhinitis trigger J30.2 [place] [address] [address] December, Chronic tension-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, intractab le G44.221 [facility] [address] [place] [id number] [place] [id number] December, Dental examination Z01.20 [place] [address] [address] December, [place] [address] [address] Oct, [place] [address] [address] Oct, [facility] [address] [facility] [id number] [address] [place] [address] Oct, Sore throat J02.9 and Season al allergic rhinitis, unspecified allergic rhinitis trigger J30.2 [place] [address] [address] Oct, [place] [address] [address] Sep, [place] [address] [address] Aug, Menstrual periods irregular N92.6 ; [employer]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, 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 ; Acute upper respiratory infection, unspecified J06.9 and Other viral agents as the cause of diseases classified elsewhere B97.89 [place] [address] [address] Jul, [facility] [address] [place] [id number] [place] [address] Jul, [facility] [address] [address] Jul, Migraine without aura and without status migrainosus, not intractable G43.009 [facility] [address] [address] Jun, [facility] [address] [address] May, Migraine without aura and without status migrainosus, not intractable G43.009 [facility] [address] [address] May, [facility] [address] [address] May, [facility] [address] [place] [id number] [place] [id number] Mar, Dental examination Z01.20 [facility] [address] [address] Mar, [facility] [address] [address] Jan, Onychomycosis B35.1 [facility] [address] [address] Jan, [facility] [address] [address] December, Dental caries K02.9 [facility] [address] [address] Nov, Dental examination Z01.20 [facility] [address] [address] Oct, Dental examination Z01.20 [facility] [address] [address] Oct, [facility] [address] [address] Oct, Migraine G43.909 [facility] [address] [address] Sep, Onychomycosis B35.1 [facility] [address] [address] Sep, [facility] [address] [address] Aug, [facility] [address] [address] Jul, [place] [address] [address] Apr, [place] [address] [address] Apr, Right anterior knee pain 719.[address] [address] Mar, Tendonitis 726.90 ; HTN (hypertension) 4 01.9 ; Tremors of nervous system 781.0 and Anxiety [address] [address] Mar, Thrush 112.0 [place] [address] [address] Feb, [place] [address] [address] Feb, Tremors of nervous system 781.0 and Carp al tunnel syndrome 354.0 [facility] [address] [address] Jan, Anxiety 300.00 ; Tremors of nervous syst em 781.0 and Tendonitis 726.90 [place] [address] [address] Jan, Anxiety 300.00 ; Tremors of nervous syst em 781.0 and Tendonitis 726.90 [place] [address] [place] [id number] [place] [address] Jan, Sinusitis 473.9 [facility] [address] [place] [address] [id number] [place] [address] December, [facility] [address] [place] [id number] [place] [address] December, [facility] [address] [place] [id number] [place] [address] December, [facility] [address] [place] [id number] [place] [address] December, [facility] [address] [place] [id number] [place] [address] December, [facility] [address] [place] [id number] [place] [address] Nov, [facility] [address] [place] [id number] [place] [address] Nov, [facility] [address] [place] [id number] [place] [address] Sep, [facility] [address] [place] [id number] [place] [address] Sep, [facility] [address] [place] [id number] [place] [address] Sep, [facility] [address] [place] [id number] [place] [address] Sep, [facility] [address] [place] [id number] [place] [address] Jul, [facility] [address] [place] [id number] [place] [address] Jul, [facility] [address] [place] [id number] [place] [address] Jul, [facility] [address] [place] [id number] [place] [address] Jul, [facility] [address] [place] [id number] [place] [address] Jul, [facility] [address] [facility] [id number] [place] [address] Jul, [facility] [address] [facility] [id number] [place] [address] Jul, [facility] [address] [id number] [place] [address] Jul, [facility] [address] [id number] [place] [address] Jul, [facility] [address] [id number] [place] [address] Jul, [facility] [address] [id number] [place] [address] Jun, [facility] [address] [id number] [place] [address] Jun, [facility] [address] [id number] [place] [address] Jun, [facility] [address] [id number] [place] [address] Jun, [facility] [address] [id number] [place] [address] May, [facility] [address] [id number] [place] [address] May, [facility] [address] [id number] [place] [address] May, [facility] [address] [id number] [place] [address] 14 May, 2014 [facility] [address] [id number] [place] [address] 17 Apr, 2014 [facility] [address] [id number] [place] [address] 17 Apr, 2014 [facility] [address] [id number] [place] [address] Apr, 2013 [facility] [address] [facility] [id number] [place] [address] 17 Apr, 2013 [facility] [address] [id number] [place] [address] 16 Apr, 2014 [facility] [address] [facility] [id number] [place] [address] Apr, [facility] [address] [id number] [place] [address] Apr, [facility] [address] [facility] [id number] [place] [address] Apr, [facility] [address] [id number] [place] [address] Mar, [facility] [address] [id number] [place] [address] Mar, [facility] [address] [id number] [place] [address] Feb, [facility] [address] [id number] [place] [address] Feb, [facility] [address] [id number] [place] [address] Feb, [facility] [address] [id number] [place] [address] Feb, [facility] [address] [id number] [place] [address] Jan, [facility] [address] [id number] [place] [address] Jan, [facility] [address] [id number] [place] [address] Jan, [facility] [address] [id number] [place] [address] Jan, [facility] [address] [id number] [place] [address] Jan, [facility] [address] [id number] [place] [address] Jan, [facility] [address] [id number] [place] [address] December, [facility] [address] [id number] [place] [address] December, [facility] [address] [id number] [place] [address] December, [facility] [address] [id number] [place] [address] December, [facility] [address] [id number] [place] [address] December, [facility] [address] [id number] [place] [address] Nov, [facility] [address] [id number] [place] [address] Nov, [facility] [address] [id number] [place] [address] Nov, [facility] [address] [id number] [place] [address] Nov, [facility] [address] [id number] [place] [address] Nov, [facility] [address] [id number] [place] [address] Nov, [facility] [address] [id number] [place] [address] Oct, [facility] [address] [id number] [place] [address] Oct, [facility] [address] [id number] [place] [address] Oct, [facility] [address] [id number] [place] [address] Oct, [facility] [address] [id number] [place] [address] Sep, [facility] [address] [id number] [place] [address] 14 Sep, 2013 [facility] [address] [id number] [place] [address] Sep, [facility] [address] [id number] [place] [address] Sep, [facility] [address] [id number] [place] [address] Sep, [facility] [address] [id number] [place] [address] Sep, [facility] [address] [id number] [place] [address] Sep, [facility] [address] [id number] [place] [address] Sep, [facility] [address] [id number] [place] [address] Sep, [facility] [address] [id number] [place] [address] Sep, [facility] [address] [id number] [place] [address] Sep, [facility] [address] [id number] [place] [address] Sep, [facility] [address] [id number] [place] [address] Sep, [facility] [address] [id number] [place] [address] Aug, [facility] [address] [id number] [place] [address] Aug, [facility] [address] [id number] [place] [address] Jul, [facility] [address] [id number] [place] [address] Jul, [facility] [address] [id number] [place] [address] Jun, [facility] [address] [facility] [id number] [place] [address] Jun, [facility] [address] [id number] [place] [address] May, [facility] [address] [id number] [place] [address] Apr, [facility] [address] [id number] [place] [address] Mar, [facility] [address] [facility] [id number] [place] [address] Jan, [facility] [address] [id number] [place] [address] December, [facility] [address] [id number] [place] [address] December, [facility] [address] [id number] [place] [address] Oct, [facility] [address] [id number] [place] [address] Oct, [facility] [address] [id number] [place] [address] Sep, [facility] [address] [id number] [place] [address] Aug, [facility] [address] [id number] [place] [address] Aug, [facility] [address] [id number] [place] [address] Jul, [facility] [address] [id number] [place] [address] Jul, [facility] [address] [id number] [place] [address] Mar, [facility] [address] [id number] [place] [address] Mar, [facility] [address] [id number] [place] [address] Feb, [facility] [address] [id number] [place] [address] Feb, [facility] [address] [id number] [place] [address] Feb, [facility] [address] [id number] [place] [address] Jan, [facility] [address] [id number] [place] [address] Nov, [facility] [address] [id number] [place] [address] Sep, [facility] [id number] [place] [address] Sep, [facility] [id number] [place] [address] Sep, [facility] [id number] [place] [address] Aug, [facility] [address] [id number] [place] [address] Aug, [facility] [id number] [place] [address] Aug, [facility] [id number] [place] [address] Jun, [facility] [id number] [place] [address] Jun, [facility] [address] [id number] [place] [address] Jun, [facility] [id number] [place] [address] Jun, [facility] [address] [id number] [place] [address] May, [facility] [id number] [place] [address] May, [facility] [address] [id number] [place] [address] May, [facility] [address] [id number] [place] [address] May, [facility] [address] [id number] [place] [address] Jun, [facility] [address] [id number] [place] [address] December, [facility] [address] [id number] [place] [address] May, IMMUNIZATIONS No Known Immunizations SOCIAL HISTORY Never Assessed REASON FOR VISIT PLAN OF CARE VITAL SIGNS MEDICATIONS No Known Medications RESULTS No Results PROCEDURES Procedure Date Ordered Result Body Site VENIPUNCT, ROUTINE* November 28, 2013 COMPREHEN METABOLIC PANEL November 28, 2013 LIPID PANEL November 28, 2013 ASSAY THYROID STIM HORMONE November 28, 2013 COMPLETE CBC W/AUTO DIFF WBC November 28, 2013 INSTRUCTIONS MEDICATIONS ADMINISTERED No Known Medications [...]
--- OUTSIDE RECORDS SUMMARY | 2020-03-17 19:13 | XMS REPORT ---
Author Author Ann BARNES Organization [facility] Address [address] [place] [address] Care Team Providers Care Trouble Lineman Name Role Phone URSZULA BARNES Unavailable PROBLEMS Type Condition ICD9-CM Code [id number] Code Onset Dates Condition S tatus SNOMED Code Problem Perimenopausal N95.1 Active 90667 [id number] Problem Seasonal allergic rhinitis, unspecified allergic rhinitis trigger J30.2 Active 711768730 Problem Chronic migraine G43.709 Active 377 14128 Problem Anxiety F41.9 Active 14101085 Problem Vitamin D deficiency E55.9 Active 93268730 Problem Essential hypertension I10 Active 61574099 Problem Iron deficiency anemia, unspecified iron deficiency an emia type D50.9 Active 46870250 Problem Carpal tunnel syndrome, bilateral G56.03 Active [id number] Problem Daytime hypersomnia G47.19 Active 20735249119150 Problem Nocturnal dyspnea R06.00 Active 24 5863582 ALLERGIES No Information ENCOUNTERS Encounter Location Date Diagnosis [address] [address] Apr, Chronic migraine G43.709 ; Essential hyp ertension I10 ; Iron deficiency anemia, unspecified iron deficiency anemia type D50.9 and Long-term use of high-risk medication Z79.[address] [address] Feb, Seasonal allergic rhinitis, unspecified allergic rhinitis trigger J30.2 and Chronic migraine G43.[address] [address] Feb, Anxiety F41.[address] [address] Feb, Exposure to pertussis Z20.818 [place] [address] [address] Jan, [place] [address] [address] Jan, Chronic migraine G43.709 and Anxiety F41 .9 [place] [address] [address] December, Anxiety F41.9 [place] [address] [address] Nov, Chronic migraine G43.709 ; Seasonal ivon rgic rhinitis, unspecified allergic rhinitis trigger J30.2 ; Vitamin D deficiency E55.9 ; Nocturnal dyspnea R06.00 ; Daytime hypersomnia G47.19 and Anxiety F41.9 [place] [address] [address] Nov, Chronic migraine G43.709 [place] [address] [address] Oct, [place] [address] [address] Sep, Carpal tunnel syndrome, bilateral G56.03 [place] [address] [address] Sep, Chronic migraine G43.709 [place] [address] [address] Aug, [place] [address] [address] Jul, Seasonal allergic rhinitis, unspecified allergic rhinitis trigger J30.2 [place] [address] [address] Jul, Seasonal allergic rhinitis, unspecified allergic rhinitis trigger J30.2 [place] [address] [address] Jul, Chronic migraine G43.709 [place] [address] [address] Jun, [facility] [address] [id number] May, Dental caries K02.9 [place] [address] [address] May, Chronic migraine G43.709 [place] [address] [address] Apr, Chronic migraine G43.709 ; Iron deficien cy anemia, unspecified iron deficiency anemia type D50.9 ; Perimenopausal N95.1 and Vitamin D deficiency E55.9 [place] [address] [address] Mar, [place] [address] [address] Mar, Seasonal allergic rhinitis, unspecified allergic rhinitis trigger J30.2 [place] [address] [address] Mar, Chronic migraine G43.709 [place] [address] [address] Mar, [place] [address] [address] Mar, Chronic migraine G43.709 ; Irregular men ses N92.6 ; Iron deficiency anemia, unspecified iron deficiency anemia type D50.9 and General medical exam Z00.00 [place] [address] [address] Mar, Chronic migraine G43.709 ; Iron deficien cy anemia, unspecified iron deficiency anemia type D50.9 ; Irregular menses N92.6 and General medical exam Z00.00 [facility] [address] [id number] Feb, Dental examination Z01.20 [place] [address] [address] 18 Feb, 2017 Chronic tension-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, intractab le G44.221 and Seasonal allergic rhinitis, unspecified allergic rhinitis trigger J30.2 [facility] [address] [address] Feb, [facility] [address] [place] [id number] [place] [address] Jan, Seasonal allergic rhinitis, unspecified allergic rhinitis trigger J30.2 [facility] [address] [address] December, Chronic tension-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, intractab le G44.221 [facility] [address] [id number] [place] [id number] December, Dental examination Z01.20 [place] [address] [place] [id number] [place] [address] December, [place] [address] [address] Oct, [facility] [address] [address] Oct, [facility] [address] [facility] [id number] [address] [place] [address] Oct, Sore throat J02.9 and Season al allergic rhinitis, unspecified allergic rhinitis trigger J30.2 [place] [address] [place] [id number] [place] [address] Oct, [place] [address] [address] Sep, [place] [address] [address] Aug, Menstrual periods irregular N92.6 ; [employer] K[employer] danielle tension-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, 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 ; Acute upper respiratory infection, unspecified J06.9 and Other viral agents as the cause of diseases classified elsewhere B97.89 [place] [address] [address] Jul, [place] [address] [place] [id number] [place] [address] Jul, [facility] [address] [place] [address] [id number] [place] [address] Jul, Migraine without aura and without status migrainosus, not intractable G43.009 [facility] [address] [place] [address] [id number] [place] [address] Jun, [facility] [address] [address] May, Migraine without aura and without status migrainosus, not intractable G43.009 [facility] [address] [address] May, [facility] [address] [address] May, [facility] [address] [id number] [place] [id number] Mar, Dental examination Z01.20 [facility] [address] [place] [address] [id number] [place] [address] Mar, [facility] [address] [address] Jan, Onychomycosis B35.1 [facility] [address] [place] [id number] [place] [address] Jan, [facility] [address] [address] December, Dental caries K02.9 [facility] [address] [place] [address] [id number] [place] [address] Nov, Dental examination Z01.20 [facility] [address] [address] Oct, Dental examination Z01.20 [facility] [address] [place] [id number] [place] [address] Oct, [facility] [address] [address] Oct, Migraine G43.909 [facility] [address] [address] Sep, Onychomycosis B35.1 [facility] [address] [address] Sep, [facility] [address] [address] Aug, [facility] [address] [address] Jul, [facility] [address] [address] Apr, [place] [address] [address] Apr, Right anterior knee pain 719.[address] [address] Mar, Tendonitis 726.90 ; HTN (hypertension) 4 01.9 ; Tremors of nervous system 781.0 and Anxiety 300.00 [place] [address] [address] Mar, Thrush 112.[address] [address] Feb, [place] [address] [address] Feb, Tremors of nervous system 781.0 and Carp al tunnel syndrome 354.0 [facility] [address] [address] Jan, Anxiety 300.00 ; Tremors of nervous syst em 781.0 and Tendonitis 726.90 [facility] [address] [address] Jan, Anxiety 300.00 ; Tremors of nervous syst em 781.0 and Tendonitis 726.90 [place] [address] [place] [address] Jan, Sinusitis 473.9 [facility] [address] [id number] [place] [address] December, [facility] [address] [id number] [place] [address] December, [facility] [address] [place] [id number] [place] [address] December, [facility] [address] [place] [id number] [place] [address] December, [facility] [address] [id number] [place] [address] December, [facility] [address] [place] [address] [id number] [place] [address] Nov, [facility] [address] [place] [address] [id number] [place] [address] Nov, [facility] [address] [place] [address] [id number] [place] [address] Sep, [facility] [address] [place] [id number] [place] [address] Sep, [facility] [address] [place] [address] [id number] [place] [address] Sep, [facility] [address] [place] [address] [id number] [place] [address] Sep, [facility] [address] [place] [address] [id number] [place] [address] Jul, [facility] [address] [id number] [place] [address] Jul, [facility] [address] [place] [id number] [place] [address] Jul, [facility] [address] [id number] [place] [address] Jul, [facility] [address] [place] [address] [id number] [place] [address] Jul, [facility] [address] [id number] [place] [address] Jul, [facility] [address] [id number] [place] [address] Jul, [facility] [address] [id number] [place] [address] Jul, [facility] [address] [id number] [place] [address] Jul, [facility] [address] [facility] [id number] [place] [address] Jul, [facility] [address] [id number] [place] [address] Jun, [facility] [address] [id number] [place] [address] Jun, [facility] [address] [id number] [place] [address] Jun, [facility] [address] [id number] [place] [address] Jun, [facility] [address] [id number] [place] [address] May, [facility] [address] [id number] [place] [address] May, [facility] [address] [id number] [place] [address] 14 May, 2014 [facility] [address] [id number] [place] [address] 14 May, 2014 [facility] [address] [id number] [place] [address] 17 Apr, 2014 [facility] [address] [id number] [place] [address] 17 Apr, 2014 [facility] [address] [id number] [place] [address] 17 Apr, 2014 [facility] [address] [id number] [place] [address] 17 Apr, 2013 [facility] [address] [id number] [place] [address] Apr, [facility] [address] [facility] [id number] [place] [address] Apr, [facility] [address] [id number] [place] [address] Apr, [facility] [address] [facility] [id number] [place] [address] Apr, [facility] [address] [facility] [id number] [place] [address] Mar, [facility] [address] [id number] [place] [address] Mar, [facility] [address] [id number] [place] [address] Feb, [facility] [address] [id number] [place] [address] Feb, [facility] [address] [id number] [place] [address] Feb, [facility] [address] [id number] [place] [address] Feb, [facility] [address] [id number] [place] [address] Jan, [facility] [address] [id number] [place] [address] Jan, [facility] [address] [facility] [id number] [place] [address] Jan, [facility] [address] [id number] [place] [address] Jan, [facility] [address] [id number] [place] [address] Jan, [facility] [address] [id number] [place] [address] Jan, [facility] [address] [id number] [place] [address] December, [facility] [address] [id number] [place] [address] December, [facility] [address] [id number] [place] [address] December, [facility] [address] [id number] [place] [address] December, [facility] [address] [id number] [place] [address] December, [facility] [address] [id number] [place] [address] Nov, [facility] [address] [id number] [place] [address] Nov, [facility] [address] [id number] [place] [address] Nov, [facility] [address] [id number] [place] [address] Nov, [facility] [address] [id number] [place] [address] Nov, [facility] [address] [id number] [place] [address] Nov, [facility] [address] [id number] [place] [address] Oct, [facility] [address] [id number] [place] [address] Oct, [facility] [address] [id number] [place] [address] Oct, [facility] [address] [id number] [place] [address] Oct, [facility] [address] [id number] [place] [address] 14 Sep, 2013 [facility] [address] [id number] [place] [address] 14 Sep, 2013 [facility] [address] [facility] [id number] [place] [address] Sep, [facility] [address] [facility] [id number] [place] [address] 10 Sep, 2013 [facility] [address] [id number] [place] [address] Sep, [facility] [address] [id number] [place] [address] Sep, [facility] [address] [facility] [id number] [place] [address] Sep, [facility] [address] [id number] [place] [address] Sep, [facility] [address] [id number] [place] [address] Sep, [facility] [address] [id number] [place] [address] Sep, [facility] [address] [id number] [place] [address] Sep, [facility] [address] [id number] [place] [address] Sep, [facility] [address] [id number] [place] [address] Sep, [facility] [address] [id number] [place] [address] Aug, [facility] [address] [id number] [place] [address] Aug, [facility] [address] [id number] [place] [address] Jul, [facility] [address] [id number] [place] [address] Jul, [facility] [address] [id number] [place] [address] Jun, [facility] [address] [id number] [place] [address] Jun, [facility] [address] [id number] [place] [address] May, [facility] [address] [id number] [place] [address] Apr, [facility] [address] [id number] [place] [address] Mar, [facility] [address] [id number] [place] [address] Jan, [facility] [address] [id number] [place] [address] December, [facility] [address] [id number] [place] [address] December, [facility] [address] [id number] [place] [address] Oct, [facility] [address] [id number] [place] [address] Oct, [facility] [address] [id number] [place] [address] Sep, [facility] [address] [id number] [place] [address] Aug, [facility] [address] [id number] [place] [address] Aug, [facility] [address] [id number] [place] [address] Jul, [facility] [address] [id number] [place] [address] Jul, [facility] [address] [id number] [place] [address] Mar, [facility] [address] [id number] [place] [address] Mar, [facility] [address] [id number] [place] [address] Feb, [facility] [address] [id number] [place] [address] Feb, [facility] [address] [id number] [place] [address] Feb, [facility] [address] [id number] [place] [address] Jan, [facility] [address] [id number] [place] [address] Nov, [facility] [address] [id number] [place] [address] Sep, [facility] [address] [id number] [place] [address] Sep, [facility] [address] [id number] [place] [address] Sep, [facility] [address] [id number] [place] [address] Aug, [facility] [address] [id number] [place] [address] Aug, [facility] [id number] [place] [address] Aug, [facility] [address] [id number] [place] [address] Jun, [facility] [id number] [place] [address] Jun, [facility] [address] [id number] [place] [address] Jun, [facility] [address] [id number] [place] [address] Jun, [facility] [address] [id number] [place] [address] May, [facility] [id number] [place] [address] May, [facility] [address] [id number] [place] [address] May, [facility] [address] [id number] [place] [address] May, [facility] [address] [id number] [place] [address] Jun, [facility] [address] [id number] [place] [address] December, [facility] [address] [id number] [place] [address] May, IMMUNIZATIONS No Known Immunizations SOCIAL HISTORY Never Assessed REASON FOR VISIT PLAN OF CARE VITAL SIGNS MEDICATIONS No Known Medications RESULTS No Results PROCEDURES Procedure Date Ordered Result Body Site TB INTRADERMAL TEST December 26, 2013 INSTRUCTIONS MEDICATIONS ADMINISTERED No Known Medications [...]
--- OUTSIDE RECORDS SUMMARY | 2020-03-17 19:14 | XMS REPORT ---
Author Author Ann MCHUGH Organization [facility] Address [address] [place] [address] Care Team Providers Care Gymnastics Coach Name Role Phone RAFAELA MCHUGH Unavailable PROBLEMS Type Condition ICD9-CM Code ZGS34-UY Code Onset Dates Condition S tatus SNOMED Code Problem Perimenopausal N95.1 Active 35773 [id number] Problem Seasonal allergic rhinitis, unspecified allergic rhinitis trigger J30.2 Active 631985869 Problem Chronic migraine G43.709 Active 377 62774 Problem Anxiety F41.9 Active 67869518 Problem Vitamin D deficiency E55.9 Active 14319981 Problem Essential hypertension I10 Active 73570209 Problem Iron deficiency anemia, unspecified iron deficiency an emia type D50.9 Active 49791639 Problem Carpal tunnel syndrome, bilateral G56.03 Active [id number] Problem Daytime hypersomnia G47.19 Active 65982699819557 Problem Nocturnal dyspnea R06.00 Active 24 7127408 ALLERGIES No Information ENCOUNTERS Encounter Location Date Diagnosis [place] [address] [place] [id number] [place] [address] Apr, Chronic migraine G43.709 ; E ssential hypertension I10 ; Iron deficiency anemia, unspecified iron deficiency anemia type D50.9 and Long-term use of high-risk medication Z79.899 [place] [address] [facility] [id number] [address] [place] [address] Feb, Seasonal allergic rhinitis, unspecified allergic rhinitis trigger J30.2 and Chronic migraine G43.709 [place] [address] [facility] [id number] [address] [place] [address] Feb, Anxiety F41.9 [facility] [address] [place] [id number] [address] [place] [address] Feb, Exposure to pertussis Z20.81 8 [place] [address] [place] [id number] [place] [address] Jan, [place] [address] [address] Jan, Chronic migraine G43.709 and Anxiety F41.9 [place] [address] [address] December, Anxiety F41.9 [place] [address] [place] [id number] [place] [address] Nov, Chronic migraine G43.709 ; S easonal allergic rhinitis, unspecified allergic rhinitis trigger J30.2 ; Vitamin D deficiency E55.9 ; Nocturnal dyspnea R06.00 ; Daytime hypersomnia G47.19 and Anxiety F41.9 [place] [id number] [place] [address] Nov, Chronic migraine G43.709 [place] [address] [place] [id number] [place] [address] Oct, [place] [address] [address] Sep, Carpal tunnel syndrome, bila teral G56.03 [place] [address] [place] [id number] [address] [place] [address] Sep, Chronic migraine G43.709 [place] [address] [place] [id number] [address] [place] [address] Aug, [place] [address] [place] [id number] [address] [place] [address] Jul, Seasonal allergic rhinitis, unspecified allergic rhinitis trigger J30.2 [place] [address] [place] [id number] [address] [place] [address] Jul, Seasonal allergic rhinitis, unspecified allergic rhinitis trigger J30.2 [place] [address] [place] [id number] [address] [place] [address] Jul, Chronic migraine G43.709 [facility] [address] [facility] [id number] [address] [place] [address] Jun, [facility] [address] [id number] [address] [place] [id number] May, Dental caries K02.9 [facility] [address] [facility] [id number] [address] [place] [address] May, Chronic migraine G43.709 [facility] [address] [facility] [id number] [address] [place] [address] Apr, Chronic migraine G43.709 ; I yvette deficiency anemia, unspecified iron deficiency anemia type D50.9 ; Perimenopausal N95.1 and Vitamin D deficiency E55.9 [place] [address] [facility] [id number] [address] [place] [address] Mar, [place] [address] [place] [id number] [address] [place] [address] Mar, Seasonal allergic rhinitis, unspecified allergic rhinitis trigger J30.2 [facility] [address] [facility] [id number] [address] [place] [address] Mar, Chronic migraine G43.709 [facility] [address] [facility] [id number] [address] [place] [address] Mar, [facility] [address] [facility] [id number] [address] [place] [address] Mar, Chronic migraine G43.709 ; I rregular menses N92.6 ; Iron deficiency anemia, unspecified iron deficiency anemia type D50.9 and General medical exam Z00.00 [facility] [address] [facility] [id number] [address] [place] [address] Mar, Chronic migraine G43.709 ; I yvette deficiency anemia, unspecified iron deficiency anemia type D50.9 ; Irregular menses N92.6 and General medical exam Z00.00 [facility] [address] [place] [id number] [address] [place] [id number] Feb, Dental examination Z01.20 [facility] [address] [id number] [address] [place] [address] Feb, Chronic tension-type headach e, 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 and Seasonal allergic rhinitis, unspecified allergic rhinitis trigger J30.2 [facility] [address] [id number] [address] [place] [address] Feb, [facility] [address] [id number] [address] [place] [address] Jan, Seasonal allergic rhinitis, unspecified allergic rhinitis trigger J30.2 [facility] [address] [facility] [id number] [address] [place] [address] December, Chronic tension-type headach e, 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 [facility] [address] [id number] [address] [place] [id number] December, Dental examination Z01.20 [facility] [address] [id number] [address] [place] [address] December, [facility] [address] [facility] [id number] [address] [place] [address] Oct, [facility] [address] [id number] [address] [place] [address] Oct, [facility] [address] [facility] [id number] [address] [place] [address] Oct, Sore throat J02.9 and Season al allergic rhinitis, unspecified allergic rhinitis trigger J30.2 [facility] [address] [id number] [address] [place] [address] Oct, [facility] [address] [facility] [id number] [address] [place] [address] Sep, [facility] [address] [facility] [id number] [address] [place] [address] Aug, Menstrual periods irregular N92.6 ; Chronic tension-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, 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 ; Acute upper respiratory infection, unspecified J06.9 and Other viral agents as the cause of diseases classified elsewhere B97.89 [facility] [address] [id number] [address] [place] [address] Jul, [facility] [address] [id number] [address] [place] [address] Jul, [facility] [address] [id number] [address] [place] [address] Jul, Migraine without aura and wi thout status migrainosus, not intractable G43.009 [facility] [address] [id number] [address] [place] [address] Jun, [facility] [address] [facility] [id number] [address] [place] [address] May, Migraine without aura and wi thout status migrainosus, not intractable G43.009 [facility] [address] [id number] [address] [place] [address] May, [facility] [address] [id number] [address] [place] [address] May, [facility] [address] [id number] [address] [place] [address] [id number] Mar, Dental examination Z01.20 [facility] [address] [id number] [address] [place] [address] Mar, [facility] [address] [facility] [id number] [address] [place] [address] Jan, Onychomycosis B35.1 [facility] [address] [id number] [address] [place] [address] Jan, [facility] [address] [facility] [id number] [address] [place] [address] December, Dental caries K02.9 [facility] [address] [id number] [address] [place] [address] Nov, Dental examination Z01.20 [facility] [address] [id number] [address] [place] [address] Oct, Dental examination Z01.20 [facility] [address] [id number] [address] [place] [address] Oct, [facility] [address] [id number] [address] [place] [address] Oct, Migraine G43.909 [facility] [address] [id number] [address] [place] [address] Sep, Onychomycosis B35.1 [facility] [address] [id number] [address] [place] [address] Sep, [facility] [address] [facility] [id number] [address] [place] [address] Aug, [facility] [address] [facility] [id number] [address] [place] [address] Jul, [facility] [address] [id number] [address] [place] [address] Apr, [facility] [address] [facility] [id number] [address] [place] [address] Apr, Right anterior knee pain 719 .46 [facility] [address] [facility] [id number] [address] [place] [address] Mar, Tendonitis 726.90 ; HTN (hyp ertension) 401.9 ; Tremors of nervous system 781.0 and Anxiety 300.00 [facility] [address] [id number] [address] [place] [address] Mar, Thrush 112.0 [facility] [address] [facility] [id number] [address] [place] [address] Feb, [facility] [address] [facility] [id number] [address] [place] [address] Feb, Tremors of nervous system 78 1.0 and Carpal tunnel syndrome 354.0 [facility] [address] [id number] [address] [place] [address] Jan, Anxiety 300.00 ; Tremors of nervous system 781.0 and Tendonitis 726.90 [facility] [address] [id number] [address] [place] [address] Jan, Anxiety 300.00 ; Tremors of nervous system 781.0 and Tendonitis 726.90 [facility] [address] [id number] [address] [place] [address] Jan, Sinusitis 473.9 [facility] [address] [id number] [address] [place] [address] December, [facility] [address] [id number] [address] [place] [phone] December, [facility] [address] [id number] [address] [place] [address] December, [facility] [address] [id number] [address] [place] [address] December, [facility] [address] [id number] [address] [place] [address] December, [facility] [address] [facility] [id number] [address] [place] [address] Nov, [facility] [address] [id number] [address] [place] [address] Nov, [facility] [address] [id number] [address] [place] [address] Sep, [facility] [address] [id number] [address] [place] [address] Sep, [facility] [address] [id number] [address] [place] [address] Sep, [facility] [address] [id number] [address] [place] [address] Sep, [facility] [address] [id number] [address] [place] [address], [place] [address] Jul, [facility] [address] [id number] [address] [place] [address], [place] [address] Jul, [facility] [address] [id number] [address] [place] [address], [place] [address] Jul, [facility] [address] [id number] [address] [place] [address], [place] [address] Jul, [facility] [address] [id number] [address] [place] [address], [place] [address] Jul, [facility] [address] [id number] [address] [place] [address], [place] [address] Jul, [facility] [address] [id number] [address] [place] [address], [place] [address] Jul, [facility] [address] [id number] [address] [place] [address], [place] [address] Jul, [facility] [address] [id number] [address] [place] [address], [place] [address] Jul, [facility] [address] [id number] [address] [place] [address], [place] [address] Jul, [facility] [address] [id number] [address] [place] [address], [place] [address] Jun, [facility] [address] [id number] [address] [place] [address], [place] [address] Jun, [facility] [address] [id number] [address] [place] [address], [place] [address] Jun, [facility] [address] [id number] [address] [place] [address], [place] [address] Jun, [facility] [address] [id number] [address] [place] [address], [place] [address] May, [facility] [address] [id number] [address] [place] [address], [place] [address] 28 May, 2014 [facility] [address] [id number] [address] [place] [address], [place] [address] 14 May, 2014 [facility] [address] [id number] [address] [place] [address], [place] [address] 14 May, 2014 [facility] [address] [id number] [address] [place] [address], [place] [address] 17 Apr, 2013 [facility] [address] [id number] [address] [place] [address], [place] [address] 17 Apr, 2013 [facility] [address] [id number] [address] [place] [address], [place] [address] 17 Apr, 2013 [facility] [address] [id number] [address] [place] [address], [place] [address] 17 Apr, 2013 [facility] [address] [id number] [address] [place] [address], [place] [address] 16 Apr, 2013 [facility] [address] [id number] [address] [place] [address], [place] [address] 16 Apr, 2013 [facility] [address] [id number] [address] [place] [address], [place] [address] 03 Apr, 2014 [facility] [address] [id number] [address] [place] [address], [place] [address] 03 Apr, 2014 [facility] [address] [id number] [address] [place] [address], [place] [address] Mar, [facility] [address] [id number] [address] [place] [address], [place] [address] Mar, [facility] [address] [id number] [address] [place] [address], [place] [address] Feb, [facility] [address] [id number] [address] [place] [address], [place] [address] Feb, [facility] [address] [id number] [address] [place] [address], [place] [address] Feb, [facility] [address] [id number] [facility] [place] [address] Feb, [facility] [address] [id number] [facility] [place] [address] Jan, [facility] [address] [id number] [address] [place] [address], [place] [address] Jan, [facility] [address] [id number] [address] [place] [address], [place] [address] Jan, [facility] [address] [id number] [address] [place] [address], [place] [address] Jan, [facility] [address] [id number] [address] [place] [address], [place] [address] Jan, [facility] [address] [id number] [address] [place] [address], [place] [address] Jan, [facility] [address] [id number] [address] [place] [address], [place] [address] December, [facility] [address] [id number] [address] [place] [address], [place] [address] December, [facility] [address] [id number] [address] [place] [address], [place] [address] December, [facility] [address] [id number] [address] [place] [address], [place] [address] December, [facility] [address] [id number] [address] [place] [address], [place] [address] December, [facility] [address] [id number] [address] [place] [address], [place] [address] Nov, [facility] [address] [id number] [address] [place] [address], [place] [address] Nov, [facility] [address] [id number] [address] [place] [address], [place] [address] Nov, [facility] [address] [id number] [address] [place] [address], [place] [address] 23 Nov, 2013 [facility] [address] [id number] [address] [place] [address], [place] [address] Nov, [facility] [address] [id number] [address] [place] [address], [place] [address] Nov, [facility] [address] [id number] [address] [place] [address], [place] [address] Oct, [facility] [address] [id number] [address] [place] [address], [place] [address] Oct, [facility] [address] [id number] [address] [place] [address], [place] [address] Oct, [facility] [address] [id number] [address] [place] [address], [place] [address] Oct, [facility] [address] [id number] [address] [place] [address], [place] [address] 14 Sep, 2013 [facility] [address] [id number] [address] [place] [address], [place] [address] 14 Sep, 2013 [facility] [address] [id number] [address] [place] [address], [place] [address] 10 Sep, 2013 [facility] [address] [id number] [address] [place] [address], [place] [address] 10 Sep, 2013 [facility] [address] [id number] [address] [place] [address], [place] [address] 07 Sep, 2013 [facility] [address] [id number] [address] [place] [address], [place] [address] 06 Sep, 2013 [facility] [address] [id number] [address] [place] [address], [place] [address] 06 Sep, 2013 [facility] [address] [id number] [address] [place] [address], [place] [address] 05 Sep, 2013 [facility] [address] [id number] [address] [place] [address], [place] [address] Sep, [facility] [address] [id number] [address] [place] [address], [place] [address] Sep, [facility] [address] [id number] [address] [place] [address], [place] [address] Sep, [facility] [address] [id number] [address] [place] [address], [place] [address] Sep, [facility] [address] [id number] [address] [place] [address], [place] [address] Sep, [facility] [address] [id number] [address] [place] [address], [place] [address] Aug, [facility] [address] [id number] [address] [place] [address], [place] [address] Aug, [facility] [address] [id number] [address] [place] [address], [place] [address] Jul, [facility] [address] [id number] [address] [place] [address], [place] [address] Jul, [facility] [address] [id number] [address] [place] [address], [place] [address] Jun, [facility] [address] [id number] [address] [place] [address], [place] [address] Jun, [facility] [address] [id number] [address] [place] [address], [place] [address] May, [facility] [address] [id number] [address] [place] [address], [place] [address] Apr, [facility] [address] [id number] [address] [place] [address], [place] [address] Mar, [facility] [address] [id number] [address] [place] [address], [place] [address] Jan, [facility] [address] [id number] [address] [place] [address], [place] [address] December, [facility] [address] [id number] [address] [place] [address], [place] [address] December, [facility] [address] [id number] [address] [place] [address], [place] [address] Oct, [facility] [address] [id number] [address] [place] [address], [place] [address] Oct, [facility] [address] [id number] [address] [place] [address], [place] [address] Sep, [facility] [address] [id number] [address] [place] [address], [place] [address] Aug, [facility] [address] [id number] [address] [place] [address], [place] [address] Aug, [facility] [address] [id number] [address] [place] [address], [place] [address] Jul, [facility] [address] [id number] [address] [place] [address], [place] [address] Jul, [facility] [address] [id number] [address] [place] [address], [place] [address] Mar, [facility] [address] [id number] [address] [place] [address], [place] [address] Mar, [facility] [address] [id number] [address] [place] [address], [place] [address] Feb, [facility] [address] [id number] [address] [place] [address], [place] [address] Feb, [facility] [address] [id number] [address] [place] [address], [place] [address] Feb, [facility] [address] [id number] [address] [place] [address], [place] [address] Jan, [facility] [address] [id number] [address] [place] [address], [place] [address] Nov, [facility] [address] [id number] [address] [place] [address], [place] [address] 17 Sep, 2011 [facility] [address] [id number] [address] [place] [address], [place] [address] 15 Sep, 2011 [facility] [address] [id number] [address] [place] [address], [place] [address] Sep, [facility] [address] [id number] [address] [place] [address], [place] [address] Aug, [facility] [address] [id number] [address] [place] [address], [place] [address] Aug, [facility] [address] [id number] [address] [place] [address], [place] [address] Aug, [facility] [address] [id number] [address] [place] [address], [place] [address] Jun, [facility] [address] [id number] [address] [place] [address], [place] [address] Jun, [facility] [address] [id number] [address] [place] [address], [place] [address] Jun, [facility] [address] [id number] [address] [place] [address], [place] [id number] Jun, [facility] [address] [id number] [address] [place] [address], [place] [id number] May, [facility] [address] [id number] [address] [place] [address], [place] [id number] May, [facility] [address] [id number] [address] [place] [id number] May, [facility] [address] [id number] [address] [place] [address], [place] [address] May, [facility] [address] [id number] [address] [place] [address], [place] [id number] Jun, [facility] [address] [id number] [address] [place] [address], [place] [address] December, [facility] [address] [id number] [facility] [place] [address] 29 May, 2009 IMMUNIZATIONS No Known Immunizations [...]
--- OUTSIDE RECORDS SUMMARY | 2020-03-17 19:14 | XMS REPORT ---
Author Author Ann RAMOS Organization [facility] Address [address] [place] [address] Care Team Providers Care Marketing Manager Health Communications Name Role Phone RACHEL VICTOR M Unavailable PROBLEMS Type Condition ICD9-CM Code UYN14-IT Code Onset Dates Condition S tatus SNOMED Code Problem Perimenopausal N95.1 Active 67655 [id number] Problem Seasonal allergic rhinitis, unspecified allergic rhinitis trigger J30.2 Active 681521761 Problem Chronic migraine G43.709 Active 377 06497 Problem Anxiety F41.9 Active 95567232 Problem Vitamin D deficiency E55.9 Active 08779240 Problem Essential hypertension I10 Active 48014482 Problem Iron deficiency anemia, unspecified iron deficiency an emia type D50.9 Active 99933715 Problem Carpal tunnel syndrome, bilateral G56.03 Active [id number] Problem Daytime hypersomnia G47.19 Active 06977032259667 Problem Nocturnal dyspnea R06.00 Active 24 1372674 ALLERGIES No Information ENCOUNTERS Encounter Location Date Diagnosis [place] [address] [place] [id number] [place] [address] Apr, Chronic migraine G43.709 ; E ssential hypertension I10 ; Iron deficiency anemia, unspecified iron deficiency anemia type D50.9 and Long-term use of high-risk medication Z79.899 [facility] [address] [facility] [id number] [address] [place] [address] Feb, Seasonal allergic rhinitis, unspecified allergic rhinitis trigger J30.2 and Chronic migraine G43.709 [place] [address] [place] [id number] [address] [place] [address] Feb, Anxiety F41.9 [place] [address] [place] [id number] [place] [address] Feb, Exposure to pertussis Z20.81 8 [facility] [address] [place] [id number] [place] [address] Jan, [place] [address] [place] [id number] [place] [address] Jan, Chronic migraine G43.709 and Anxiety F41.9 [place] [address] [address] December, Anxiety F41.9 [place] [address] [facility] [id number] [address] [place] [address] Nov, Chronic migraine G43.709 ; S easonal allergic rhinitis, unspecified allergic rhinitis trigger J30.2 ; Vitamin D deficiency E55.9 ; Nocturnal dyspnea R06.00 ; Daytime hypersomnia G47.19 and Anxiety F41.9 [place] [address] [place] [id number] [place] [address] Nov, Chronic migraine G43.709 [place] [address] [place] [address] Oct, [place] [address] [address] Sep, Carpal tunnel syndrome, bila teral G56.03 [place] [address] [place] [address] Sep, Chronic migraine G43.709 [place] [address] [place] [id number] [address] [place] [id number] Aug, [place] [address] [place] [id number] [address] [place] [address] Jul, Seasonal allergic rhinitis, unspecified allergic rhinitis trigger J30.2 [facility] [address] [place] [id number] [address] [place] [address] Jul, Seasonal allergic rhinitis, unspecified allergic rhinitis trigger J30.2 [place] [address] [place] [id number] [address] [place] [id number] Jul, Chronic migraine G43.709 [facility] [address] [facility] [id number] [address] [place] [address] Jun, [facility] [address] [id number] [address] [place] [id number] May, Dental caries K02.9 [facility] [address] [place] [id number] [address] [place] [address] May, Chronic migraine G43.709 [facility] [address] [facility] [id number] [address] [place] [address] Apr, Chronic migraine G43.709 ; I yvette deficiency anemia, unspecified iron deficiency anemia type D50.9 ; Perimenopausal N95.1 and Vitamin D deficiency E55.9 [place] [address] [place] [address] Mar, [place] [address] [place] [id number] [place] [address] Mar, Seasonal allergic rhinitis, unspecified allergic rhinitis trigger J30.2 [place] [address] [place] [id number] [place] [address] Mar, Chronic migraine G43.709 [place] [address] [place] [address] Mar, [facility] [address] [place] [id number] [address] [place] [address] Mar, Chronic migraine G43.709 ; I rregular menses N92.6 ; Iron deficiency anemia, unspecified iron deficiency anemia type D50.9 and General medical exam Z00.00 [facility] [address] [facility] [id number] [address] [place] [address] Mar, Chronic migraine G43.709 ; I yvette deficiency anemia, unspecified iron deficiency anemia type D50.9 ; Irregular menses N92.6 and General medical exam Z00.00 [facility] [address] [id number] [address] [place] [id number] Feb, Dental examination Z01.20 [facility] [address] [id number] [address] [place] [id number] Feb, Chronic tension-type headach e, 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 and Seasonal allergic rhinitis, unspecified allergic rhinitis trigger J30.2 [facility] [address] [facility] [id number] [address] [place] [phone] Feb, [facility] [address] [facility] [id number] [address] [place] [address] Jan, Seasonal allergic rhinitis, unspecified allergic rhinitis trigger J30.2 [facility] [address] [facility] [id number] [address] [place] [address] December, Chronic tension-type headach e, 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 [facility] [address] [id number] [address] [place] [address] [id number] December, Dental examination Z01.20 [facility] [address] [facility] [id number] [address] [place] [address] December, [facility] [address] [facility] [id number] [address] [place] [id number] Oct, [facility] [address] [facility] [id number] [address] [place] [phone] Oct, [facility] [address] [facility] [id number] [address] [place] [id number] Oct, Sore throat J02.9 and Season al allergic rhinitis, unspecified allergic rhinitis trigger J30.2 [facility] [address] [facility] [id number] [address] [place] [id number] Oct, [facility] [address] [facility] [id number] [address] [place] [id number] Sep, [facility] [address] [facility] [id number] [address] [place] [id number] Aug, Menstrual periods irregular N92.6 ; Chronic tension-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, 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 ; Acute upper respiratory infection, unspecified J06.9 and Other viral agents as the cause of diseases classified elsewhere B97.89 [facility] [address] [id number] [address] [place] [id number] Jul, [facility] [address] [id number] [address] [place] [address] Jul, [facility] [address] [id number] [address] [place] [id number] Jul, Migraine without aura and wi thout status migrainosus, not intractable G43.009 [facility] [address] [id number] [address] [place] [id number] Jun, [facility] [address] [facility] [id number] [address] [place] [id number] May, Migraine without aura and wi thout status migrainosus, not intractable G43.009 [facility] [address] [id number] [address] [place] [id number] May, [facility] [address] [facility] [id number] [address] [place] [id number] May, [facility] [address] [id number] [address] [place] [address] [id number] Mar, Dental examination Z01.20 [facility] [address] [id number] [address] [place] [id number] Mar, [facility] [address] [id number] [address] [place] [id number] Jan, Onychomycosis B35.1 [facility] [address] [id number] [address] [place] [id number] Jan, [facility] [address] [facility] [id number] [address] [place] [id number] December, Dental caries K02.9 [facility] [address] [id number] [address] [place] [address] Nov, Dental examination Z01.20 [facility] [address] [place] [id number] [address] [place] [address] Oct, Dental examination Z01.20 [facility] [address] [facility] [id number] [address] [place] [address] Oct, [facility] [address] [place] [id number] [address] [place] [id number] Oct, Migraine G43.909 [facility] [address] [place] [id number] [address] [place] [id number] Sep, Onychomycosis B35.1 [facility] [address] [place] [id number] [address] [place] [id number] Sep, [facility] [address] [place] [id number] [address] [place] [id number] Aug, [facility] [address] [place] [id number] [address] [place] [id number] Jul, [facility] [address] [place] [id number] [address] [place] [address] Apr, [facility] [address] [place] [id number] [address] [place] [id number] Apr, Right anterior knee pain 719 .46 [facility] [address] [place] [id number] [address] [place] [id number] Mar, Tendonitis 726.90 ; HTN (hyp ertension) 401.9 ; Tremors of nervous system 781.0 and Anxiety 300.00 [facility] [address] [place] [id number] [address] [place] [id number] Mar, Thrush 112.0 [facility] [address] [place] [id number] [address] [place] [id number] Feb, [facility] [address] [place] [id number] [address] [place] [id number] Feb, Tremors of nervous system 78 1.0 and Carpal tunnel syndrome 354.0 [facility] [address] [id number] [address] [place] [address] Jan, Anxiety 300.00 ; Tremors of nervous system 781.0 and Tendonitis 726.90 [facility] [address] [facility] [id number] [address] [place] [id number] Jan, Anxiety 300.00 ; Tremors of nervous system 781.0 and Tendonitis 726.90 [facility] [address] [id number] [address] [place] [id number] Jan, Sinusitis 473.9 [facility] [address] [facility] [id number] [address] [place] [id number] December, [facility] [address] [facility] [id number] [address] [place] [id number] December, [facility] [address] [id number] [address] [place] [id number] December, [facility] [address] [id number] [address] [place] [id number] December, [facility] [address] [facility] [id number] [address] [place] [phone] December, [facility] [address] [facility] [id number] [address] [place] [phone] Nov, [facility] [address] [id number] [address] [place] [phone] Nov, [facility] [address] [id number] [address] [place] [id number] Sep, [facility] [address] [facility] [id number] [address] [place] [phone] Sep, [facility] [address] [facility] [id number] [address] [place] [phone] Sep, [facility] [address] [id number] [address] [place] [address], [place] [address] Sep, [facility] [address] [id number] [address] [place] [address], [place] [address] Jul, [facility] [address] [id number] [address] [place] [address], [place] [address] Jul, [facility] [address] [id number] [address] [place] [address], [place] [address] Jul, [facility] [address] [id number] [address] [place] [address], [place] [address] Jul, [facility] [address] [id number] [address] [place] [address], [place] [address] Jul, [facility] [address] [id number] [address] [place] [address], [place] [address] Jul, [facility] [address] [id number] [address] [place] [address], [place] [address] Jul, [facility] [address] [id number] [address] [place] [address], [place] [address] Jul, [facility] [address] [id number] [address] [place] [address], [place] [address] Jul, [facility] [address] [id number] [address] [place] [address], [place] [address] Jul, [facility] [address] [id number] [address] [place] [address], [place] [address] Jun, [facility] [address] [id number] [address] [place] [address], [place] [address] Jun, [facility] [address] [id number] [address] [place] [address], [place] [address] Jun, [facility] [address] [id number] [address] [place] [address], [place] [address] Jun, [facility] [address] [id number] [address] [place] [address], [place] [address] May, [facility] [address] [id number] [address] [place] [address], [place] [address] 28 May, 2014 [facility] [address] [id number] [address] [place] [address], [place] [address] May, [facility] [address] [id number] [address] [place] [address], [place] [address] 14 May, 2014 [facility] [address] [id number] [address] [place] [address], [place] [address] 17 Apr, 2013 [facility] [address] [id number] [address] [place] [address], [place] [address] 17 Apr, 2014 [facility] [address] [id number] [address] [place] [address], [place] [address] 17 Apr, 2013 [facility] [address] [id number] [address] [place] [address], [place] [address] 17 Apr, 2013 [facility] [address] [id number] [address] [place] [address], [place] [address] 16 Apr, 2013 [facility] [address] [id number] [address] [place] [address], [place] [address] 16 Apr, 2014 [facility] [address] [id number] [address] [place] [address], [place] [address] 03 Apr, 2014 [facility] [address] [id number] [address] [place] [address], [place] [address] Apr, [facility] [address] [id number] [address] [place] [address], [place] [address] Mar, [facility] [address] [id number] [address] [place] [address], [place] [address] Mar, [facility] [address] [id number] [address] [place] [address], [place] [address] Feb, [facility] [address] [id number] [address] [place] [address], [place] [address] Feb, [facility] [address] [id number] [address] [place] [id number] Feb, [facility] [address] [id number] [address] [place] [address], [place] [id number] Feb, [facility] [address] [id number] [address] [place] [address], [place] [address] Jan, [facility] [address] [id number] [address] [place] [address], [place] [address] Jan, [facility] [address] [id number] [address] [place] [address], [place] [address] Jan, [facility] [address] [id number] [address] [place] [address], [place] [address] Jan, [facility] [address] [id number] [address] [place] [address], [place] [address] Jan, [facility] [address] [id number] [address] [place] [address], [place] [address] Jan, [facility] [address] [id number] [address] [place] [address], [place] [address] December, [facility] [address] [id number] [address] [place] [address], [place] [address] December, [facility] [address] [id number] [address] [place] [address], [place] [address] December, [facility] [address] [id number] [address] [place] [address], [place] [address] December, [facility] [address] [id number] [address] [place] [address], [place] [address] December, [facility] [address] [id number] [address] [place] [address], [place] [address] Nov, [facility] [address] [id number] [address] [place] [address], [place] [address] Nov, [facility] [address] [id number] [address] [place] [address], [place] [address] Nov, [facility] [address] [id number] [facility] [place] [address] Nov, [facility] [address] [id number] [address] [place] [address], [place] [address] Nov, [facility] [address] [id number] [address] [place] [address], [place] [address] Nov, [facility] [address] [id number] [address] [place] [address], [place] [address] Oct, [facility] [address] [id number] [address] [place] [address], [place] [address] Oct, [facility] [address] [id number] [address] [place] [address], [place] [address] Oct, [facility] [address] [id number] [address] [place] [address], [place] [address] Oct, [facility] [address] [id number] [address] [place] [address], [place] [address] 14 Sep, 2013 [facility] [address] [id number] [address] [place] [address], [place] [address] 14 Sep, 2013 [facility] [address] [id number] [address] [place] [address], [place] [address] 10 Sep, 2013 [facility] [address] [id number] [address] [place] [address], [place] [address] 10 Sep, 2013 [facility] [address] [id number] [address] [place] [address], [place] [address] 07 Sep, 2013 [facility] [address] [id number] [address] [place] [address], [place] [address] 06 Sep, 2013 [facility] [address] [id number] [address] [place] [address], [place] [address] 06 Sep, 2013 [facility] [address] [id number] [address] [place] [address], [place] [address] 05 Sep, 2013 [facility] [address] [id number] [address] [place] [id number] Sep, [facility] [address] [id number] [address] [place] [address], [place] [address] Sep, [facility] [address] [id number] [address] [place] [address], [place] [address] Sep, [facility] [address] [id number] [address] [place] [address], [place] [address] Sep, [facility] [address] [id number] [address] [place] [address], [place] [id number] Sep, [facility] [address] [id number] [address] [place] [address], [place] [id number] Aug, [facility] [address] [id number] [address] [place] [address], [place] [id number] Aug, [facility] [address] [id number] [address] [place] [address], [place] [id number] Jul, [facility] [address] [id number] [address] [place] [address], [place] [id number] Jul, [facility] [address] [id number] [address] [place] [address], [place] [address] Jun, [facility] [address] [id number] [address] [place] [address], [place] [id number] Jun, [facility] [address] [id number] [address] [place] [address], [place] [address] May, [facility] [address] [id number] [address] [place] [id number] Apr, [facility] [address] [id number] [address] [place] [address], [place] [id number] Mar, [facility] [address] [id number] [address] [place] [address], [place] [id number] Jan, [facility] [address] [id number] [address] [place] [address], [place] [id number] December, [facility] [address] [id number] [address] [place] [address], [place] [id number] December, [facility] [address] [id number] [address] [place] [address], [place] [id number] Oct, [facility] [address] [id number] [address] [place] [address], [place] [id number] Oct, [facility] [address] [id number] [address] [place] [address], [place] [id number] Sep, [facility] [address] [id number] [address] [place] [address], [place] [id number] Aug, [facility] [address] [id number] [address] [place] [address], [place] [id number] Aug, [facility] [address] [id number] [address] [place] [address], [place] [id number] Jul, [facility] [address] [id number] [address] [place] [address], [place] [id number] Jul, [facility] [address] [id number] [address] [place] [address], [place] [id number] Mar, [facility] [address] [id number] [address] [place] [address], [place] [id number] Mar, [facility] [address] [id number] [address] [place] [address], [place] [id number] Feb, [facility] [address] [id number] [address] [place] [address], [place] [id number] Feb, [facility] [address] [id number] [address] [place] [address], [place] [id number] Feb, [facility] [address] [id number] [address] [place] [address], [place] [id number] Jan, [facility] [address] [id number] [place] [address], [place] [id number] Nov, [facility] [address] [id number] [address] [place] [id number] 17 Sep, 2011 [facility] [address] [id number] [address] [place] [address], [place] [id number] 15 Sep, 2011 [facility] [address] [id number] [address] [place] [id number] 10 Sep, 2011 [facility] [address] [id number] [address] [place] [address], [place] [id number] Aug, [facility] [address] [id number] [address] [place] [address], [place] [id number] Aug, [facility] [address] [id number] [address] [place] [address], [place] [id number] Aug, [facility] [address] [id number] [address] [place] [address], [place] [id number] Jun, [facility] [address] [id number] [address] [place] [id number] Jun, [facility] [address] [id number] [address] [place] [address], [place] [id number] Jun, [facility] [address] [id number] [address] [place] [address], [place] [id number] Jun, [facility] [address] [id number] [address] [place] [address], [place] [id number] May, [facility] [address] [id number] [address] [place] [address], [place] [id number] May, [facility] [address] [id number] [address] [place] [id number] 18 May, 2011 [facility] [address] [id number] [address] [place] [id number] 14 May, 2011 [facility] [address] [id number] [address] [place] [id number] Jun, [facility] [address] [id number] [address] [place] [id number] December, [facility] [address] [facility] [id number] [address] [place] [address] May, IMMUNIZATIONS No Known Immunizations SOCIAL HISTORY Never Assessed REASON FOR VISIT PLAN OF CARE VITAL SIGNS Height 64 in 2014-06-20 Weight 136.8 lbs 2014-06-20 Temperature 97.2 degrees Fahrenheit 2014-06-20 Heart Rate 76 bpm 2014-06-20 Respiratory Rate 16 2014-06-20 Blood pressure systolic 124 mmHg 2014-06-20 Blood pressure diastolic 80 mmHg 2014-06-20 MEDICATIONS No Known Medications RESULTS No Results [...]
--- OUTSIDE RECORDS SUMMARY | 2020-03-17 19:14 | XMS REPORT ---
Author Author Ann MCHUGH Organization [facility] Address [address] [place] [address] Care Team Providers Care Vegetable Vendor Name Role Phone RAFAELA MCHUGH Unavailable PROBLEMS Type Condition ICD9-CM Code ZPZ19-BK Code Onset Dates Condition S tatus SNOMED Code Problem Perimenopausal N95.1 Active 98543 [id number] Problem Seasonal allergic rhinitis, unspecified allergic rhinitis trigger J30.2 Active 647572697 Problem Chronic migraine G43.709 Active 377 21530 Problem Anxiety F41.9 Active 62061383 Problem Vitamin D deficiency E55.9 Active 00671233 Problem Essential hypertension I10 Active 84292528 Problem Iron deficiency anemia, unspecified iron deficiency an emia type D50.9 Active 32347622 Problem Carpal tunnel syndrome, bilateral G56.03 Active [id number] Problem Daytime hypersomnia G47.19 Active 07007830781406 Problem Nocturnal dyspnea R06.00 Active 24 8047758 ALLERGIES No Information ENCOUNTERS Encounter Location Date Diagnosis [place] [address] [place] [id number] [address] [place] [address] Apr, Chronic migraine G43.709 ; E ssential hypertension I10 ; Iron deficiency anemia, unspecified iron deficiency anemia type D50.9 and Long-term use of high-risk medication Z79.899 [place] [address] [facility] [id number] [address] [place] [address] Feb, Seasonal allergic rhinitis, unspecified allergic rhinitis trigger J30.2 and Chronic migraine G43.709 [place] [address] [facility] [id number] [address] [place] [address] Feb, Anxiety F41.9 [facility] [address] [place] [id number] [address] [place] [address] Feb, Exposure to pertussis Z20.81 8 [place] [address] [place] [id number] [place] [address] Jan, [place] [address] [address] Jan, Chronic migraine G43.709 and Anxiety F41.9 [place] [address] [address] December, Anxiety F41.9 [place] [address] [place] [id number] [place] [address] Nov, Chronic migraine G43.709 ; S easonal allergic rhinitis, unspecified allergic rhinitis trigger J30.2 ; Vitamin D deficiency E55.9 ; Nocturnal dyspnea R06.00 ; Daytime hypersomnia G47.19 and Anxiety F41.9 [place] [id number] [place] [address] Nov, Chronic migraine G43.709 [place] [address] [place] [id number] [address] [place] [address] Oct, [place] [address] [address] Sep, Carpal tunnel syndrome, bila teral G56.03 [place] [address] [place] [id number] [address] [place] [address] Sep, Chronic migraine G43.709 [place] [address] [place] [id number] [address] [place] [address] Aug, [place] [address] [place] [id number] [address] [place] [address] Jul, Seasonal allergic rhinitis, unspecified allergic rhinitis trigger J30.2 [place] [address] [place] [id number] [address] [place] [address] Jul, Seasonal allergic rhinitis, unspecified allergic rhinitis trigger J30.2 [place] [address] [place] [id number] [address] [place] [address] Jul, Chronic migraine G43.709 [facility] [address] [facility] [id number] [address] [place] [address] Jun, [facility] [address] [id number] [address] [place] [address] [id number] May, Dental caries K02.9 [facility] [address] [facility] [id number] [address] [place] [address] May, Chronic migraine G43.709 [facility] [address] [facility] [id number] [address] [place] [address] Apr, Chronic migraine G43.709 ; I yvtete deficiency anemia, unspecified iron deficiency anemia type D50.9 ; Perimenopausal N95.1 and Vitamin D deficiency E55.9 [place] [address] [facility] [id number] [address] [place] [address] Mar, [place] [address] [place] [id number] [address] [place] [address] Mar, Seasonal allergic rhinitis, unspecified allergic rhinitis trigger J30.2 [facility] [address] [facility] [id number] [address] [place] [address] Mar, Chronic migraine G43.709 [facility] [address] [facility] [id number] [address] [place] [address] Mar, [facility] [address] [facility] [id number] [address] [place] [address] Mar, Chronic migraine G43.709 ; I rregular menses N92.6 ; Iron deficiency anemia, unspecified iron deficiency anemia type D50.9 and General medical exam Z00.00 [facility] [address] [facility] [id number] [address] [place] [address] Mar, Chronic migraine G43.709 ; I yvette deficiency anemia, unspecified iron deficiency anemia type D50.9 ; Irregular menses N92.6 and General medical exam Z00.00 [facility] [address] [place] [id number] [address] [place] [address] [id number] Feb, Dental examination Z01.20 [facility] [address] [id number] [address] [place] [address] Feb, Chronic tension-type headach e, 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 and Seasonal allergic rhinitis, unspecified allergic rhinitis trigger J30.2 [facility] [address] [id number] [address] [place] [address] Feb, [facility] [address] [id number] [address] [place] [address] Jan, Seasonal allergic rhinitis, unspecified allergic rhinitis trigger J30.2 [facility] [address] [facility] [id number] [address] [place] [address] December, Chronic tension-type headach e, 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 [facility] [address] [id number] [address] [place] [address] [id number] December, Dental examination Z01.20 [facility] [address] [id number] [address] [place] [address] December, [facility] [address] [facility] [id number] [address] [place] [address] Oct, [facility] [address] [id number] [address] [place] [address] Oct, [facility] [address] [facility] [id number] [address] [place] [address] Oct, Sore throat J02.9 and Season al allergic rhinitis, unspecified allergic rhinitis trigger J30.2 [facility] [address] [id number] [address] [place] [address] Oct, [facility] [address] [facility] [id number] [address] [place] [address] Sep, [facility] [address] [facility] [id number] [address] [place] [address] Aug, Menstrual periods irregular N92.6 ; Chronic tension-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, 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 ; Acute upper respiratory infection, unspecified J06.9 and Other viral agents as the cause of diseases classified elsewhere B97.89 [facility] [address] [id number] [address] [place] [address] Jul, [facility] [address] [id number] [address] [place] [address] Jul, [facility] [address] [id number] [address] [place] [address] Jul, Migraine without aura and wi thout status migrainosus, not intractable G43.009 [facility] [address] [id number] [address] [place] [address] Jun, [facility] [address] [facility] [id number] [address] [place] [address] May, Migraine without aura and wi thout status migrainosus, not intractable G43.009 [facility] [address] [id number] [address] [place] [address] May, [facility] [address] [id number] [address] [place] [address] May, [facility] [address] [id number] [address] [place] [address] [id number] Mar, Dental examination Z01.20 [facility] [address] [id number] [address] [place] [address] Mar, [facility] [address] [facility] [id number] [address] [place] [address] Jan, Onychomycosis B35.1 [facility] [address] [id number] [address] [place] [address] Jan, [facility] [address] [facility] [id number] [address] [place] [address] December, Dental caries K02.9 [facility] [address] [id number] [address] [place] [address] Nov, Dental examination Z01.20 [facility] [address] [id number] [address] [place] [address] Oct, Dental examination Z01.20 [facility] [address] [id number] [address] [place] [address] Oct, [facility] [address] [id number] [address] [place] [address] Oct, Migraine G43.909 [facility] [address] [id number] [address] [place] [address] Sep, Onychomycosis B35.1 [facility] [address] [id number] [address] [place] [address] Sep, [facility] [address] [facility] [id number] [address] [place] [address] Aug, [facility] [address] [facility] [id number] [address] [place] [address] Jul, [facility] [address] [id number] [address] [place] [address] Apr, [facility] [address] [facility] [id number] [address] [place] [address] Apr, Right anterior knee pain 719 .46 [facility] [address] [facility] [id number] [address] [place] [address] Mar, Tendonitis 726.90 ; HTN (hyp ertension) 401.9 ; Tremors of nervous system 781.0 and Anxiety 300.00 [facility] [address] [id number] [address] [place] [address] Mar, Thrush 112.0 [facility] [address] [facility] [id number] [address] [place] [address] Feb, [facility] [address] [facility] [id number] [address] [place] [address] Feb, Tremors of nervous system 78 1.0 and Carpal tunnel syndrome 354.0 [facility] [address] [id number] [address] [place] [address] Jan, Anxiety 300.00 ; Tremors of nervous system 781.0 and Tendonitis 726.90 [facility] [address] [id number] [address] [place] [address] Jan, Anxiety 300.00 ; Tremors of nervous system 781.0 and Tendonitis 726.90 [facility] [address] [id number] [address] [place] [address] Jan, Sinusitis 473.9 [facility] [address] [id number] [address] [place] [address] December, [facility] [address] [id number] [address] [place] [address] December, [facility] [address] [id number] [address] [place] [address] December, [facility] [address] [id number] [address] [place] [address] December, [facility] [address] [id number] [address] [place] [address] December, [facility] [address] [facility] [id number] [address] [place] [address] Nov, [facility] [address] [id number] [address] [place] [address] Nov, [facility] [address] [id number] [address] [place] [address] Sep, [facility] [address] [id number] [address] [place] [address] Sep, [facility] [address] [id number] [address] [place] [address] Sep, [facility] [address] [id number] [address] [place] [address] Sep, [facility] [address] [id number] [address] [place] [address], [place] [id number] Jul, [facility] [address] [id number] [address] [place] [address], [place] [id number] Jul, [facility] [address] [id number] [address] [place] [address], [place] [address] Jul, [facility] [address] [id number] [address] [place] [address], [place] [address] Jul, [facility] [address] [id number] [address] [place] [address], [place] [id number] Jul, [facility] [address] [id number] [address] [place] [address], [place] [id number] Jul, [facility] [address] [id number] [address] [place] [address], [place] [id number] Jul, [facility] [address] [id number] [address] [place] [address], [place] [address] Jul, [facility] [address] [id number] [address] [place] [address], [place] [address] Jul, [facility] [address] [id number] [address] [place] [address], [place] [id number] Jul, [facility] [address] [id number] [address] [place] [address], [place] [address] Jun, [facility] [address] [id number] [address] [place] [address], [place] [address] Jun, [facility] [address] [id number] [address] [place] [address], [place] [address] Jun, [facility] [address] [id number] [address] [place] [address], [place] [id number] Jun, [facility] [address] [id number] [address] [place] [address], [place] [id number] May, [facility] [address] [id number] [address] [place] [address], [place] [id number] 28 May, 2014 [facility] [address] [id number] [address] [place] [address], [place] [id number] 14 May, 2014 [facility] [address] [id number] [address] [place] [address], [place] [id number] 14 May, 2014 [facility] [address] [id number] [address] [place] [address], [place] [id number] 17 Apr, 2013 [facility] [address] [id number] [address] [place] [address], [place] [id number] 17 Apr, 2013 [facility] [address] [id number] [address] [place] [address], [place] [id number] 17 Apr, 2013 [facility] [address] [id number] [address] [place] [address], [place] [id number] 17 Apr, 2013 [facility] [address] [id number] [address] [place] [address], [place] [id number] 16 Apr, 2013 [facility] [address] [id number] [address] [place] [address], [place] [id number] 16 Apr, 2013 [facility] [address] [id number] [address] [place] [address], [place] [id number] 03 Apr, 2014 [facility] [address] [id number] [address] [place] [address], [place] [id number] 03 Apr, 2014 [facility] [address] [id number] [address] [place] [address], [place] [address] Mar, [facility] [address] [id number] [address] [place] [address], [place] [address] Mar, [facility] [address] [id number] [address] [place] [address], [place] [address] Feb, [facility] [address] [id number] [address] [place] [address], [place] [address] Feb, [facility] [address] [id number] [address] [place] [address], [place] [id number] Feb, [facility] [address] [id number] [facility] [place] [address] Feb, [facility] [address] [id number] [facility] [place] [address] Jan, [facility] [address] [id number] [address] [place] [address], [place] [id number] Jan, [facility] [address] [id number] [address] [place] [address], [place] [address] Jan, [facility] [address] [id number] [address] [place] [address], [place] [id number] Jan, [facility] [address] [id number] [address] [place] [address], [place] [address] Jan, [facility] [address] [id number] [address] [place] [address], [place] [id number] Jan, [facility] [address] [id number] [address] [place] [address], [place] [id number] December, [facility] [address] [id number] [address] [place] [address], [place] [address] December, [facility] [address] [id number] [address] [place] [address], [place] [id number] December, [facility] [address] [id number] [address] [place] [address], [place] [address] December, [facility] [address] [id number] [address] [place] [address], [place] [address] December, [facility] [address] [id number] [address] [place] [address], [place] [address] Nov, [facility] [address] [id number] [address] [place] [address], [place] [address] Nov, [facility] [address] [id number] [address] [place] [address], [place] [address] Nov, [facility] [address] [id number] [address] [place] [address], [place] [id number] 23 Nov, 2013 [facility] [address] [id number] [address] [place] [address], [place] [address] Nov, [facility] [address] [id number] [address] [place] [address], [place] [address] Nov, [facility] [address] [id number] [address] [place] [address], [place] [id number] Oct, [facility] [address] [id number] [address] [place] [address], [place] [id number] Oct, [facility] [address] [id number] [address] [place] [address], [place] [address] Oct, [facility] [address] [id number] [address] [place] [address], [place] [address] Oct, [facility] [address] [id number] [address] [place] [address], [place] [address] 14 Sep, 2013 [facility] [address] [id number] [address] [place] [address], [place] [address] 14 Sep, 2013 [facility] [address] [id number] [address] [place] [address], [place] [address] 10 Sep, 2013 [facility] [address] [id number] [address] [place] [address], [place] [id number] 10 Sep, 2013 [facility] [address] [id number] [address] [place] [address], [place] [id number] 07 Sep, 2013 [facility] [address] [id number] [address] [place] [address], [place] [id number] 06 Sep, 2013 [facility] [address] [id number] [address] [place] [address], [place] [id number] 06 Sep, 2013 [facility] [address] [id number] [address] [place] [address], [place] [id number] 05 Sep, 2013 [facility] [address] [id number] [address] [place] [address], [place] [id number] Sep, [facility] [address] [id number] [address] [place] [address], [place] [address] Sep, [facility] [address] [id number] [address] [place] [address], [place] [address] Sep, [facility] [address] [id number] [address] [place] [address], [place] [id number] Sep, [facility] [address] [id number] [address] [place] [address], [place] [id number] Sep, [facility] [address] [id number] [address] [place] [address], [place] [id number] Aug, [facility] [address] [id number] [address] [place] [address], [place] [id number] Aug, [facility] [address] [id number] [address] [place] [address], [place] [id number] Jul, [facility] [address] [id number] [address] [place] [address], [place] [id number] Jul, [facility] [address] [id number] [address] [place] [address], [place] [id number] Jun, [facility] [address] [id number] [address] [place] [address], [place] [id number] Jun, [facility] [address] [id number] [address] [place] [address], [place] [id number] May, [facility] [address] [id number] [address] [place] [address], [place] [id number] Apr, [facility] [address] [id number] [address] [place] [address], [place] [id number] Mar, [facility] [address] [id number] [address] [place] [address], [place] [id number] Jan, [facility] [address] [id number] [address] [place] [address], [place] [id number] December, [facility] [address] [id number] [address] [place] [address], [place] [id number] December, [facility] [address] [id number] [address] [place] [address], [place] [id number] Oct, [facility] [address] [id number] [address] [place] [address], [place] [id number] Oct, [facility] [address] [id number] [address] [place] [address], [place] [id number] Sep, [facility] [address] [id number] [address] [place] [address], [place] [id number] Aug, [facility] [address] [id number] [address] [place] [address], [place] [id number] Aug, [facility] [address] [id number] [address] [place] [address], [place] [id number] Jul, [facility] [address] [id number] [address] [place] [address], [place] [id number] Jul, [facility] [address] [id number] [address] [place] [address], [place] [id number] Mar, [facility] [address] [id number] [address] [place] [address], [place] [id number] Mar, [facility] [address] [id number] [address] [place] [address], [place] [id number] Feb, [facility] [address] [id number] [address] [place] [address], [place] [id number] Feb, [facility] [address] [id number] [address] [place] [address], [place] [id number] Feb, [facility] [address] [id number] [address] [place] [address], [place] [id number] Jan, [facility] [address] [id number] [address] [place] [address], [place] [id number] Nov, [facility] [address] [id number] [address] [place] [address], [place] [id number] 17 Sep, 2011 [facility] [address] [id number] [address] [place] [address], [place] [id number] 15 Sep, 2011 [facility] [address] [id number] [address] [place] [address], [place] [id number] Sep, [facility] [address] [id number] [address] [place] [address], [place] [id number] Aug, [facility] [address] [id number] [address] [place] [address], [place] [id number] Aug, [facility] [address] [id number] [address] [place] [address], [place] [id number] Aug, [facility] [facility] [address] [id number] [address] [place] [address], [place] [id number] Jun, [facility] [address] [id number] [address] [place] [address], [place] [id number] Jun, [facility] [address] [id number] [address] [place] [address], [place] [id number] Jun, [facility] [address] [id number] [address] [place] [address], [place] [id number] Jun, [facility] [address] [id number] [address] [place] [address], [place] [id number] May, [facility] [address] [id number] [address] [place] [address], [place] [id number] May, [facility] [address] [id number] [address] [place] [id number] May, [facility] [address] [id number] [address] [place] [address], [place] [id number] May, [facility] [address] [id number] [address] [place] [address], [place] [id number] Jun, [facility] [address] [id number] [address] [place] [address], [place] [id number] December, [facility] [address] [id number] [facility] [place] [id number] 29 May, 2009 IMMUNIZATIONS No Known Immunizations [...]
--- OUTSIDE RECORDS SUMMARY | 2020-03-17 19:14 | XMS REPORT ---
Author Author Ann MCHUGH Organization [facility] Address [address] [place] [address] Care Team Providers Care Emt Paramedic Name Role Phone RAFAELA MCHUGH Unavailable PROBLEMS Type Condition ICD9-CM Code [id number] Code Onset Dates Condition S tatus SNOMED Code Problem Perimenopausal N95.1 Active 69063 [id number] Problem Seasonal allergic rhinitis, unspecified allergic rhinitis trigger J30.2 Active 950196877 Problem Chronic migraine G43.709 Active 377 89638 Problem Anxiety F41.9 Active 23636045 Problem Vitamin D deficiency E55.9 Active 71463434 Problem Essential hypertension I10 Active 19518127 Problem Iron deficiency anemia, unspecified iron deficiency an emia type D50.9 Active 19349594 Problem Carpal tunnel syndrome, bilateral G56.03 Active [id number] Problem Daytime hypersomnia G47.19 Active 94045699638199 Problem Nocturnal dyspnea R06.00 Active 24 1568034 ALLERGIES No Information ENCOUNTERS Encounter Location Date Diagnosis [place] [address] [place] [id number] [address] [place] [address] Apr, Chronic migraine G43.709 ; E ssential hypertension I10 ; Iron deficiency anemia, unspecified iron deficiency anemia type D50.9 and Long-term use of high-risk medication Z79.899 [place] [address] [facility] [id number] [address] [place] [address] Feb, Seasonal allergic rhinitis, unspecified allergic rhinitis trigger J30.2 and Chronic migraine G43.709 [place] [address] [facility] [id number] [address] [place] [address] Feb, Anxiety F41.9 [facility] [address] [place] [id number] [address] [place] [address] Feb, Exposure to pertussis Z20.81 8 [place] [address] [place] [id number] [address] [place] [address] Jan, [place] [address] [address] Jan, Chronic migraine G43.709 and Anxiety F41.9 [place] [address] [address] December, Anxiety F41.9 [place] [address] [place] [id number] [place] [address] Nov, Chronic migraine G43.709 ; S easonal allergic rhinitis, unspecified allergic rhinitis trigger J30.2 ; Vitamin D deficiency E55.9 ; Nocturnal dyspnea R06.00 ; Daytime hypersomnia G47.19 and Anxiety F41.9 [place] [id number] [place] [address] Nov, Chronic migraine G43.709 [place] [address] [place] [id number] [address] [place] [address] Oct, [place] [address] [address] Sep, Carpal tunnel syndrome, bila teral G56.03 [place] [address] [place] [id number] [address] [place] [address] Sep, Chronic migraine G43.709 [place] [address] [place] [id number] [address] [place] [address] Aug, [place] [address] [place] [id number] [address] [place] [address] Jul, Seasonal allergic rhinitis, unspecified allergic rhinitis trigger J30.2 [place] [address] [place] [id number] [address] [place] [address] Jul, Seasonal allergic rhinitis, unspecified allergic rhinitis trigger J30.2 [place] [address] [place] [id number] [address] [place] [address] Jul, Chronic migraine G43.709 [facility] [address] [facility] [id number] [address] [place] [address] Jun, [facility] [address] [id number] [address] [place] [id number] May, Dental caries K02.9 [facility] [address] [facility] [id number] [address] [place] [address] May, Chronic migraine G43.709 [facility] [address] [facility] [id number] [address] [place] [address] Apr, Chronic migraine G43.709 ; I yvette deficiency anemia, unspecified iron deficiency anemia type D50.9 ; Perimenopausal N95.1 and Vitamin D deficiency E55.9 [place] [address] [facility] [id number] [address] [place] [address] Mar, [place] [address] [place] [id number] [address] [place] [address] Mar, Seasonal allergic rhinitis, unspecified allergic rhinitis trigger J30.2 [facility] [address] [facility] [id number] [address] [place] [address] Mar, Chronic migraine G43.709 [facility] [address] [facility] [id number] [address] [place] [address] Mar, [facility] [address] [facility] [id number] [address] [place] [address] Mar, Chronic migraine G43.709 ; I rregular menses N92.6 ; Iron deficiency anemia, unspecified iron deficiency anemia type D50.9 and General medical exam Z00.00 [facility] [address] [facility] [id number] [address] [place] [address] Mar, Chronic migraine G43.709 ; I yvette deficiency anemia, unspecified iron deficiency anemia type D50.9 ; Irregular menses N92.6 and General medical exam Z00.00 [facility] [address] [place] [id number] [address] [place] [id number] Feb, Dental examination Z01.20 [facility] [address] [id number] [address] [place] [address] Feb, Chronic tension-type headach e, 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 and Seasonal allergic rhinitis, unspecified allergic rhinitis trigger J30.2 [facility] [address] [id number] [address] [place] [address] Feb, [facility] [address] [id number] [address] [place] [address] Jan, Seasonal allergic rhinitis, unspecified allergic rhinitis trigger J30.2 [facility] [address] [facility] [id number] [address] [place] [address] December, Chronic tension-type headach e, 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 [facility] [address] [id number] [address] [place] [address] [id number] December, Dental examination Z01.20 [facility] [address] [id number] [address] [place] [address] December, [facility] [address] [facility] [id number] [address] [place] [address] Oct, [facility] [address] [id number] [address] [place] [address] Oct, [facility] [address] [facility] [id number] [address] [place] [address] Oct, Sore throat J02.9 and Season al allergic rhinitis, unspecified allergic rhinitis trigger J30.2 [facility] [address] [id number] [address] [place] [id number] Oct, [facility] [address] [facility] [id number] [address] [place] [address] Sep, [facility] [address] [facility] [id number] [address] [place] [address] Aug, Menstrual periods irregular N92.6 ; Chronic tension-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, 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 ; Acute upper respiratory infection, unspecified J06.9 and Other viral agents as the cause of diseases classified elsewhere B97.89 [facility] [address] [id number] [address] [place] [address] Jul, [facility] [address] [id number] [address] [place] [address] Jul, [facility] [address] [id number] [address] [place] [address] Jul, Migraine without aura and wi thout status migrainosus, not intractable G43.009 [facility] [address] [id number] [address] [place] [address] Jun, [facility] [address] [facility] [id number] [address] [place] [address] May, Migraine without aura and wi thout status migrainosus, not intractable G43.009 [facility] [address] [id number] [address] [place] [phone] May, [facility] [address] [id number] [address] [place] [address] May, [facility] [address] [id number] [address] [place] [address] [id number] Mar, Dental examination Z01.20 [facility] [address] [id number] [address] [place] [phone] Mar, [facility] [address] [facility] [id number] [address] [place] [address] Jan, Onychomycosis B35.1 [facility] [address] [id number] [address] [place] [phone] Jan, [facility] [address] [facility] [id number] [address] [place] [address] December, Dental caries K02.9 [facility] [address] [id number] [address] [place] [address] Nov, Dental examination Z01.20 [facility] [address] [id number] [address] [place] [address] Oct, Dental examination Z01.20 [facility] [address] [id number] [address] [place] [address] Oct, [facility] [address] [id number] [address] [place] [address] Oct, Migraine G43.909 [facility] [address] [id number] [address] [place] [phone] Sep, Onychomycosis B35.1 [facility] [address] [id number] [address] [place] [address] Sep, [facility] [address] [facility] [id number] [address] [place] [phone] Aug, [facility] [address] [facility] [id number] [address] [place] [phone] Jul, [facility] [address] [id number] [address] [place] [id number] Apr, [facility] [address] [facility] [id number] [address] [place] [address] Apr, Right anterior knee pain 719 .46 [facility] [address] [facility] [id number] [address] [place] [phone] Mar, Tendonitis 726.90 ; HTN (hyp ertension) 401.9 ; Tremors of nervous system 781.0 and Anxiety 300.00 [facility] [address] [id number] [address] [place] [address] Mar, Thrush 112.0 [facility] [address] [facility] [id number] [address] [place] [phone] Feb, [facility] [address] [facility] [id number] [address] [place] [phone] Feb, Tremors of nervous system 78 1.0 and Carpal tunnel syndrome 354.0 [facility] [address] [id number] [address] [place] [address] Jan, Anxiety 300.00 ; Tremors of nervous system 781.0 and Tendonitis 726.90 [facility] [address] [id number] [address] [place] [address] Jan, Anxiety 300.00 ; Tremors of nervous system 781.0 and Tendonitis 726.90 [facility] [address] [id number] [address] [place] [address] Jan, Sinusitis 473.9 [facility] [address] [id number] [address] [place] [phone] December, [facility] [address] [id number] [address] [place] [phone] December, [facility] [address] [id number] [address] [place] [phone] December, [facility] [address] [id number] [address] [place] [address] December, [facility] [address] [id number] [address] [place] [phone] December, [facility] [address] [facility] [id number] [address] [place] [phone] Nov, [facility] [address] [id number] [address] [place] [phone] Nov, [facility] [address] [id number] [address] [place] [phone] Sep, [facility] [address] [id number] [address] [place] [phone] Sep, [facility] [address] [id number] [address] [place] [phone] Sep, [facility] [address] [id number] [address] [place] [phone] Sep, [facility] [address] [id number] [address] [place] [address], [place] [address] Jul, [facility] [address] [id number] [address] [place] [address], [place] [address] Jul, [facility] [address] [id number] [address] [place] [address], [place] [address] Jul, [facility] [address] [id number] [address] [place] [address], [place] [address] Jul, [facility] [address] [id number] [address] [place] [address], [place] [address] Jul, [facility] [address] [id number] [address] [place] [address], [place] [address] Jul, [facility] [address] [id number] [address] [place] [address], [place] [address] Jul, [facility] [address] [id number] [address] [place] [address], [place] [address] Jul, [facility] [address] [id number] [address] [place] [address], [place] [address] Jul, [facility] [address] [id number] [address] [place] [address], [place] [address] Jul, [facility] [address] [id number] [address] [place] [address], [place] [address] Jun, [facility] [address] [id number] [address] [place] [address], [place] [address] Jun, [facility] [address] [id number] [address] [place] [address], [place] [address] Jun, [facility] [address] [id number] [address] [place] [address], [place] [address] Jun, [facility] [address] [id number] [address] [place] [address], [place] [address] May, [facility] [address] [id number] [address] [place] [address], [place] [address] 28 May, 2014 [facility] [address] [id number] [address] [place] [address], [place] [address] 14 May, 2014 [facility] [address] [id number] [address] [place] [address], [place] [address] 14 May, 2014 [facility] [address] [id number] [address] [place] [address], [place] [address] 17 Apr, 2013 [facility] [address] [id number] [address] [place] [address], [place] [address] 17 Apr, 2013 [facility] [address] [id number] [address] [place] [address], [place] [address] 17 Apr, 2013 [facility] [address] [id number] [address] [place] [address], [place] [address] 17 Apr, 2013 [facility] [address] [id number] [address] [place] [address], [place] [address] 16 Apr, 2013 [facility] [address] [id number] [address] [place] [address], [place] [address] 16 Apr, 2013 [facility] [address] [id number] [address] [place] [address], [place] [address] 03 Apr, 2014 [facility] [address] [id number] [address] [place] [address], [place] [address] 03 Apr, 2014 [facility] [address] [id number] [address] [place] [address], [place] [address] Mar, [facility] [address] [id number] [address] [place] [address], [place] [address] Mar, [facility] [address] [id number] [address] [place] [address], [place] [address] Feb, [facility] [address] [id number] [address] [place] [address], [place] [address] Feb, [facility] [address] [id number] [address] [place] [address], [place] [address] Feb, [facility] [address] [id number] [facility] [place] [address] Feb, [facility] [address] [id number] [facility] [place] [address] Jan, [facility] [address] [id number] [address] [place] [address], [place] [address] Jan, [facility] [address] [id number] [address] [place] [address], [place] [address] Jan, [facility] [address] [id number] [address] [place] [address], [place] [address] Jan, [facility] [address] [id number] [address] [place] [address], [place] [address] Jan, [facility] [address] [id number] [address] [place] [address], [place] [address] Jan, [facility] [address] [id number] [address] [place] [address], [place] [address] December, [facility] [address] [id number] [address] [place] [address], [place] [address] December, [facility] [address] [id number] [address] [place] [address], [place] [address] December, [facility] [address] [id number] [address] [place] [address], [place] [address] December, [facility] [address] [id number] [address] [place] [address], [place] [address] December, [facility] [address] [id number] [address] [place] [address], [place] [address] Nov, [facility] [address] [id number] [address] [place] [address], [place] [address] Nov, [facility] [address] [id number] [address] [place] [address], [place] [address] Nov, [facility] [address] [id number] [address] [place] [address], [place] [address] 23 Nov, 2013 [facility] [address] [id number] [address] [place] [address], [place] [address] Nov, [facility] [address] [id number] [address] [place] [address], [place] [address] Nov, [facility] [address] [id number] [address] [place] [address], [place] [address] Oct, [facility] [address] [id number] [address] [place] [address], [place] [address] Oct, [facility] [address] [id number] [address] [place] [address], [place] [address] Oct, [facility] [address] [id number] [address] [place] [address], [place] [address] Oct, [facility] [address] [id number] [address] [place] [address], [place] [address] 14 Sep, 2013 [facility] [address] [id number] [address] [place] [address], [place] [address] 14 Sep, 2013 [facility] [address] [id number] [address] [place] [address], [place] [address] 10 Sep, 2013 [facility] [address] [id number] [address] [place] [address], [place] [address] 10 Sep, 2013 [facility] [address] [id number] [address] [place] [address], [place] [address] 07 Sep, 2013 [facility] [address] [id number] [address] [place] [address], [place] [address] 06 Sep, 2013 [facility] [address] [id number] [address] [place] [address], [place] [address] 06 Sep, 2013 [facility] [address] [id number] [address] [place] [address], [place] [address] 05 Sep, 2013 [facility] [address] [id number] [address] [place] [address], [place] [address] Sep, [facility] [address] [id number] [address] [place] [address], [place] [address] Sep, [facility] [address] [id number] [address] [place] [address], [place] [address] Sep, [facility] [address] [id number] [address] [place] [address], [place] [address] Sep, [facility] [address] [id number] [address] [place] [address], [place] [address] Sep, [facility] [address] [id number] [address] [place] [address], [place] [address] Aug, [facility] [address] [id number] [address] [place] [address], [place] [address] Aug, [facility] [address] [id number] [address] [place] [address], [place] [address] Jul, [facility] [address] [id number] [address] [place] [address], [place] [address] Jul, [facility] [address] [id number] [address] [place] [address], [place] [address] Jun, [facility] [address] [id number] [address] [place] [address], [place] [id number] Jun, [facility] [address] [id number] [address] [place] [address], [place] [address] May, [facility] [address] [id number] [address] [place] [address], [place] [id number] Apr, [facility] [address] [id number] [address] [place] [address], [place] [id number] Mar, [facility] [address] [id number] [address] [place] [address], [place] [id number] Jan, [facility] [address] [id number] [address] [place] [address], [place] [id number] December, [facility] [address] [id number] [address] [place] [address], [place] [id number] December, [facility] [address] [id number] [address] [place] [address], [place] [id number] Oct, [facility] [address] [id number] [address] [place] [address], [place] [id number] Oct, [facility] [address] [id number] [address] [place] [address], [place] [id number] Sep, [facility] [address] [id number] [address] [place] [address], [place] [id number] Aug, [facility] [address] [id number] [address] [place] [address], [place] [id number] Aug, [facility] [address] [id number] [address] [place] [address], [place] [id number] Jul, [facility] [address] [id number] [address] [place] [address], [place] [id number] Jul, [facility] [address] [id number] [address] [place] [address], [place] [address] Mar, [facility] [address] [id number] [address] [place] [address], [place] [id number] Mar, [facility] [address] [id number] [address] [place] [address], [place] [address] Feb, [facility] [address] [id number] [address] [place] [address], [place] [id number] Feb, [facility] [address] [id number] [address] [place] [address], [place] [id number] Feb, [facility] [address] [id number] [address] [place] [address], [place] [id number] Jan, [facility] [address] [id number] [address] [place] [address], [place] [address] Nov, [facility] [address] [id number] [address] [place] [address], [place] [id number] 17 Sep, 2011 [facility] [address] [id number] [address] [place] [address], [place] [id number] 15 Sep, 2011 [facility] [address] [id number] [address] [place] [address], [place] [id number] Sep, [facility] [address] [id number] [address] [place] [address], [place] [id number] Aug, [facility] [address] [id number] [address] [place] [address], [place] [address] Aug, [facility] [address] [id number] [address] [place] [address], [place] [id number] Aug, [facility] [address] [id number] [address] [place] [address], [place] [id number] Jun, [facility] [address] [address] [id number] [address] [place] [address], [place] [id number] Jun, [facility] [address] [id number] [address] [place] [address], [place] [id number] Jun, [facility] [address] [id number] [address] [place] [address], [place] [id number] Jun, [facility] [address] [id number] [address] [place] [address], [place] [id number] May, [facility] [address] [id number] [address] [place] [address], [place] [id number] May, [facility] [address] [id number] [address] [place] [id number] May, [facility] [address] [id number] [address] [place] [address], [place] [id number] May, [facility] [address] [id number] [address] [place] [address], [place] [id number] Jun, [facility] [address] [id number] [address] [place] [address], [place] [id number] December, [facility] [address] [id number] [facility] [place] [id number] 29 May, 2009 IMMUNIZATIONS No Known Immunizations [...]
--- OUTSIDE RECORDS SUMMARY | 2020-03-17 19:15 | XMS REPORT ---
Author Author Ann Whitley Doctor Organization [facility] Address Unknown Phone Unavailable Care Team Providers Care Web Marketing Analyst Name Role Phone Migration, Doctor Unavailable Unavailable PROBLEMS Type Condition ICD9-CM Code IPX89-VB Code Onset Dates Condition S tatus SNOMED Code Problem Perimenopausal N95.1 Active 81407 [id number] Problem Seasonal allergic rhinitis, unspecified allergic rhinitis trigger J30.2 Active 874641023 Problem Chronic migraine G43.709 Active 377 04773 Problem Anxiety F41.9 Active 97669991 Problem Vitamin D deficiency E55.9 Active 86088732 Problem Essential hypertension I10 Active 76713899 Problem Iron deficiency anemia, unspecified iron deficiency an emia type D50.9 Active 72218990 Problem Carpal tunnel syndrome, bilateral G56.03 Active [id number] Problem Daytime hypersomnia G47.19 Active 50029239649919 Problem Nocturnal dyspnea R06.00 Active 24 7770176 ALLERGIES No Information ENCOUNTERS Encounter Location Date Diagnosis [place] [address] [address] Apr, Chronic migraine G43.709 ; E ssential hypertension I10 ; Iron deficiency anemia, unspecified iron deficiency anemia type D50.9 and Long-term use of high-risk medication Z79.899 [place] [address] [place] [id number] [address] [place] [address] Feb, Seasonal allergic rhinitis, unspecified allergic rhinitis trigger J30.2 and Chronic migraine G43.709 [place] [address] [address] [place] [id number] [address] [place] [address] Feb, Anxiety F41.9 [place] [address] [address] Feb, Exposure to pertussis Z20.81 8 [place] [address] [address] Jan, [facility] [address] [facility] [id number] [address] [place] [address] Jan, Chronic migraine G43.709 and Anxiety F41.9 [facility] [address] [facility] [id number] [address] [place] [address] December, Anxiety F41.9 [place] [address] [place] [id number] [address] [place] [address] Nov, Chronic migraine G43.709 ; S easonal allergic rhinitis, unspecified allergic rhinitis trigger J30.2 ; Vitamin D deficiency E55.9 ; Nocturnal dyspnea R06.00 ; Daytime hypersomnia G47.19 and Anxiety F41.9 [place] [address] [facility] [id number] [address] [place] [address] Nov, Chronic migraine G43.709 [place] [id number] [place] [address] Oct, [place] [address] [facility] [id number] [address] [place] [address] Sep, Carpal tunnel syndrome, bila teral G56.03 [place] [address] [place] [id number] [address] [place] [address] Sep, Chronic migraine G43.709 [place] [address] [place] [id number] [address] [place] [address] Aug, [place] [address] [facility] [id number] [address] [place] [address] Jul, Seasonal allergic rhinitis, unspecified allergic rhinitis trigger J30.2 [place] [address] [facility] [id number] [address] [place] [address] Jul, Seasonal allergic rhinitis, unspecified allergic rhinitis trigger J30.2 [place] [address] [facility] [id number] [address] [place] [address] Jul, Chronic migraine G43.709 [place] [address] [facility] [id number] [address] [place] [address] 13 Jun, 2017 [facility] [address] [id number] [address] [place] [address] [id number] May, Dental caries K02.9 [facility] [address] [facility] [id number] [address] [place] [address] 12 May, 2017 Chronic migraine G43.709 [place] [address] [facility] [id number] [address] [place] [address] Apr, Chronic migraine G43.709 ; I yvette deficiency anemia, unspecified iron deficiency anemia type D50.9 ; Perimenopausal N95.1 and Vitamin D deficiency E55.9 [place] [address] [facility] [id number] [address] [place] [address] Mar, [place] [address] [facility] [id number] [place] [place] [address] Mar, Seasonal allergic rhinitis, unspecified allergic rhinitis trigger J30.2 [facility] [address] [place] [id number] [address] [place] [address] Mar, Chronic migraine G43.709 [place] [address] [place] [id number] [address] [place] [address] Mar, [facility] [address] [facility] [id number] [address] [place] [address] Mar, Chronic migraine G43.709 ; I rregular menses N92.6 ; Iron deficiency anemia, unspecified iron deficiency anemia type D50.9 and General medical exam Z00.00 [facility] [address] [facility] [id number] [address] [place] [address] Mar, Chronic migraine G43.709 ; I yvette deficiency anemia, unspecified iron deficiency anemia type D50.9 ; Irregular menses N92.6 and General medical exam Z00.00 [facility] [address] [id number] [address] [place] [id number] Feb, Dental examination Z01.20 [facility] [address] [id number] [address] [place] [id number] 18 Feb, 2017 Chronic tension-type headach e, 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 and Seasonal allergic rhinitis, unspecified allergic rhinitis trigger J30.2 [facility] [address] [id number] [address] [place] [address] Feb, [facility] [address] [facility] [id number] [address] [place] [address] Jan, Seasonal allergic rhinitis, unspecified allergic rhinitis trigger J30.2 [facility] [address] [id number] [address] [place] [address] December, Chronic tension-type headach e, 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 [facility] [address] [id number] [address] [place] [address] [id number] December, Dental examination Z01.20 [facility] [address] [facility] [id number] [address] [place] [address] December, [facility] [address] [facility] [id number] [address] [place] [address] Oct, [facility] [address] [facility] [id number] [address] [place] [address] Oct, [facility] [address] [facility] [id number] [address] [place] [address] Oct, Sore throat J02.9 and Season al allergic rhinitis, unspecified allergic rhinitis trigger J30.2 [facility] [address] [id number] [address] [place] [address] Oct, [facility] [address] [facility] [id number] [address] [place] [address] Sep, [facility] [address] [facility] [id number] [address] [place] [address] Aug, Menstrual periods irregular N92.6 ; Chronic tension-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, 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 ; Acute upper respiratory infection, unspecified J06.9 and Other viral agents as the cause of diseases classified elsewhere B97.89 [facility] [address] [id number] [address] [place] [address] Jul, [facility] [address] [id number] [address] [place] [address] Jul, [facility] [address] [id number] [address] [place] [address] Jul, Migraine without aura and wi thout status migrainosus, not intractable G43.009 [facility] [address] [id number] [address] [place] [address] Jun, [facility] [address] [id number] [address] [place] [address] May, Migraine without aura and wi thout status migrainosus, not intractable G43.009 [facility] [address] [id number] [address] [place] [address] May, [facility] [address] [id number] [address] [place] [address] May, [facility] [address] [id number] [address] [place] [address] [id number] Mar, Dental examination Z01.20 [facility] [address] [id number] [address] [place] [address] Mar, [facility] [address] [id number] [address] [place] [address] Jan, Onychomycosis B35.1 [facility] [address] [id number] [address] [place] [address] Jan, [facility] [address] [id number] [address] [place] [address] December, Dental caries K02.9 [facility] [address] [id number] [address] [place] [phone] Nov, Dental examination Z01.20 [facility] [address] [facility] [id number] [address] [place] [address] Oct, Dental examination Z01.20 [facility] [address] [facility] [id number] [address] [place] [address] Oct, [facility] [address] [place] [id number] [address] [place] [address] Oct, Migraine G43.909 [facility] [address] [place] [id number] [address] [place] [address] Sep, Onychomycosis B35.1 [facility] [address] [facility] [id number] [address] [place] [address] Sep, [facility] [address] [place] [id number] [address] [place] [address] Aug, [facility] [address] [address] Jul, [facility] [address] [place] [id number] [address] [place] [address] Apr, [facility] [address] [id number] 10 Apr, 2015 Right anterior knee pain 719 .46 [facility] [address] [address] Mar, Tendonitis 726.90 ; HTN (hyp ertension) 401.9 ; Tremors of nervous system 781.0 and Anxiety 300.00 [facility] [address] [place] [id number] [address] [place] [address] Mar, Thrush 112.0 [facility] [address] [place] [id number] [address] [place] [address] Feb, [facility] [address] [place] [id number] [address] [place] [phone] 08 Feb, 2015 Tremors of nervous system 78 1.0 and Carpal tunnel syndrome 354.0 [facility] [address] [id number] [address] [place] [address] Jan, Anxiety 300.00 ; Tremors of nervous system 781.0 and Tendonitis 726.90 [facility] [address] [facility] [id number] [address] [place] [address] Jan, Anxiety 300.00 ; Tremors of nervous system 781.0 and Tendonitis 726.90 [facility] [address] [id number] [address] [place] [address] Jan, Sinusitis 473.9 [facility] [address] [id number] [address] [place] [phone] December, [facility] [address] [id number] [address] [place] [address] December, [facility] [address] [id number] [address] [place] [address] December, [facility] [address] [id number] [address] [place] [id number] December, [facility] [address] [id number] [address] [place] [address] December, [facility] [address] [facility] [id number] [address] [place] [address] Nov, [facility] [address] [facility] [id number] [address] [place] [address] Nov, [facility] [address] [id number] [address] [place] [address] Sep, [facility] [address] [id number] [address] [place] [address] Sep, [facility] [address] [facility] [id number] [address] [place] [address] Sep, [facility] [address] [facility] [id number] [address] [place] [address] Sep, [facility] [address] [id number] [address] [place] [address], [place] [address] Jul, [facility] [address] [id number] [address] [place] [address], [place] [address] Jul, [facility] [address] [id number] [address] [place] [address], [place] [address] Jul, [facility] [address] [id number] [address] [place] [address], [place] [address] Jul, [facility] [address] [id number] [address] [place] [address], [place] [address] Jul, [facility] [address] [id number] [address] [place] [address], [place] [address] Jul, [facility] [address] [id number] [address] [place] [address], [place] [address] Jul, [facility] [address] [id number] [address] [place] [address], [place] [address] Jul, [facility] [address] [id number] [address] [place] [address], [place] [address] Jul, [facility] [address] [id number] [address] [place] [address], [place] [address] Jul, [facility] [address] [id number] [address] [place] [address], [place] [address] Jun, [facility] [address] [id number] [address] [place] [address], [place] [address] Jun, [facility] [address] [id number] [address] [place] [address], [place] [address] Jun, [facility] [address] [id number] [address] [place] [address], [place] [address] Jun, [facility] [address] [id number] [address] [place] [address], [place] [address] May, [facility] [address] [id number] [address] [place] [address], [place] [address] May, [facility] [address] [id number] [address] [place] [address], [place] [address] 14 May, 2014 [facility] [address] [id number] [address] [place] [address], [place] [address] 14 May, 2014 [facility] [address] [id number] [address] [place] [address], [place] [address] 17 Apr, 2014 [facility] [address] [id number] [address] [place] [address], [place] [address] 17 Apr, 2013 [facility] [address] [id number] [address] [place] [address], [place] [address] 17 Apr, 2014 [facility] [address] [id number] [address] [place] [address], [place] [address] 17 Apr, 2014 [facility] [address] [id number] [address] [place] [address], [place] [address] 16 Apr, 2014 [facility] [address] [id number] [address] [place] [address], [place] [address] 16 Apr, 2014 [facility] [address] [id number] [address] [place] [address], [place] [address] Apr, [facility] [address] [id number] [address] [place] [address], [place] [address] Apr, [facility] [address] [id number] [address] [place] [address], [place] [address] Mar, [facility] [address] [id number] [address] [place] [address], [place] [address] Mar, [facility] [address] [id number] [address] [place] [address], [place] [address] Feb, [facility] [address] [id number] [address] [place] [address], [place] [address] Feb, [facility] [address] [id number] [address] [place] [address], [place] [address] Feb, [facility] [address] [id number] [address] [place] [address], [place] [address] Feb, [facility] [address] [id number] [address] [place] [address], [place] [address] Jan, [facility] [address] [id number] [address] [place] [address], [place] [address] Jan, [facility] [address] [id number] [address] [place] [address], [place] [address] Jan, [facility] [address] [id number] [address] [place] [address], [place] [address] Jan, [facility] [address] [id number] [address] [place] [address], [place] [address] Jan, [facility] [address] [id number] [address] [place] [address], [place] [address] Jan, [facility] [address] [id number] [address] [place] [address], [place] [address] December, [facility] [address] [id number] [address] [place] [address], [place] [address] December, [facility] [address] [id number] [address] [place] [address], [place] [address] December, [facility] [address] [id number] [address] [place] [address], [place] [address] December, [facility] [address] [id number] [address] [place] [address], [place] [address] December, [facility] [address] [id number] [address] [place] [address], [place] [address] Nov, [facility] [address] [id number] [address] [place] [address], [place] [address] Nov, [facility] [address] [id number] [address] [place] [address], [place] [address] Nov, [facility] [address] [id number] [address] [place] [address], [place] [address] Nov, [facility] [address] [id number] [facility] [address] Nov, [facility] [address] [id number] [address] [place] [address], [place] [address] Nov, [facility] [address] [id number] [address] [place] [address], [place] [address] Oct, [facility] [address] [id number] [address] [place] [address], [place] [address] Oct, [facility] [address] [id number] [address] [place] [address], [place] [address] Oct, [facility] [address] [id number] [address] [place] [address], [place] [address] Oct, [facility] [address] [id number] [address] [place] [address], [place] [address] Sep, [facility] [address] [id number] [address] [place] [address], [place] [address] 14 Sep, 2013 [facility] [address] [id number] [address] [place] [address], [place] [address] 10 Sep, 2013 [facility] [address] [id number] [address] [place] [address], [place] [address] 10 Sep, 2013 [facility] [address] [id number] [address] [place] [address], [place] [address] Sep, [facility] [address] [id number] [address] [place] [address], [place] [address] Sep, [facility] [address] [id number] [address] [place] [address], [place] [address] Sep, [facility] [address] [id number] [address] [place] [address], [place] [address] 05 Sep, 2013 [facility] [address] [id number] [address] [place] [address], [place] [address] 05 Sep, 2013 [facility] [address] [id number] [address] [place] [address], [place] [address] Sep, [facility] [address] [id number] [address] [place] [address], [place] [address] Sep, [facility] [address] [id number] [address] [place] [address], [place] [address] Sep, [facility] [address] [id number] [address] [place] [address], [place] [address] Sep, [facility] [address] [id number] [address] [place] [address], [place] [address] Aug, [facility] [address] [id number] [address] [place] [address], [place] [address] Aug, [facility] [address] [id number] [address] [place] [address], [place] [address] Jul, [facility] [address] [id number] [address] [place] [address], [place] [address] Jul, [facility] [address] [id number] [address] [place] [address], [place] [address] Jun, [facility] [address] [id number] [address] [place] [address], [place] [address] Jun, [facility] [address] [id number] [address] [place] [address], [place] [address] May, [facility] [address] [id number] [address] [place] [address], [place] [address] Apr, [facility] [address] [id number] [address] [place] [address], [place] [address] Mar, [facility] [address] [id number] [address] [place] [address], [place] [address] Jan, [facility] [address] [id number] [address] [place] [address], [place] [address] December, [facility] [address] [id number] [address] [place] [address], [place] [address] December, [facility] [address] [id number] [address] [place] [address], [place] [address] Oct, [facility] [address] [id number] [address] [place] [address], [place] [address] Oct, [facility] [address] [id number] [address] [place] [address], [place] [address] Sep, [facility] [address] [id number] [address] [place] [address], [place] [address] Aug, [facility] [address] [id number] [address] [place] [address], [place] [address] Aug, [facility] [address] [id number] [address] [place] [address], [place] [address] Jul, [facility] [address] [id number] [address] [place] [address], [place] [address] Jul, [facility] [address] [id number] [address] [place] [address], [place] [address] Mar, [facility] [address] [id number] [address] [place] [address], [place] [address] Mar, [facility] [address] [id number] [address] [place] [address], [place] [address] Feb, [facility] [address] [id number] [address] [place] [address], [place] [address] Feb, [facility] [address] [id number] [address] [place] [address], [place] [address] Feb, [facility] [address] [id number] [address] [place] [address], [place] [address] Jan, [facility] [address] [id number] [address] [place] [address], [place] [address] Nov, [facility] [address] [id number] [address] [place] [address], [place] [address] Sep, [facility] [address] [id number] [address] [place] [id number] 15 Sep, 2011 [facility] [address] [id number] [address] [place] [id number] 10 Sep, 2011 [facility] [address] [id number] [address] [place] [address] Aug, [facility] [address] [id number] [address] [place] [address] Aug, [facility] [address] [id number] [address] [place] [id number] Aug, [facility] [address] [id number] [address] [place] [id number] Jun, [facility] [facility] [address] [id number] [address] [place] [id number] Jun, [facility] [address] [id number] [address] [place] [id number] Jun, [facility] [address] [id number] [address] [place] [id number] Jun, [facility] [address] [id number] [address] [place] [id number] May, [facility] [address] [id number] [address] [place] [phone] May, [facility] [address] [id number] [address] [place] [id number] May, [facility] [address] [id number] [address] [place] [id number] May, [facility] [address] [id number] [address] [place] [id number] Jun, [facility] [address] [id number] [address] [place] [phone] December, [facility] [address] [id number] [address] [place] [id number] May, IMMUNIZATIONS Vaccine Route Administration Date Status FLU Vaccine (History) Unknown May 21, 2014 Administer ed SOCIAL HISTORY Never Assessed REASON FOR VISIT [...]
--- OUTSIDE RECORDS SUMMARY | 2020-03-17 19:15 | XMS REPORT ---
Author Author Ann MCHUGH Organization [facility] Address [address] [place] [address] Care Team Providers Care Document Management Consultant Name Role Phone RAFAELA MCHUGH Unavailable PROBLEMS Type Condition ICD9-CM Code [id number] Code Onset Dates Condition S tatus SNOMED Code Problem Perimenopausal N95.1 Active 25327 [id number] Problem Seasonal allergic rhinitis, unspecified allergic rhinitis trigger J30.2 Active 781347412 Problem Chronic migraine G43.709 Active 377 64319 Problem Anxiety F41.9 Active 78468847 Problem Vitamin D deficiency E55.9 Active 06066176 Problem Essential hypertension I10 Active 12281670 Problem Iron deficiency anemia, unspecified iron deficiency an emia type D50.9 Active 41017394 Problem Carpal tunnel syndrome, bilateral G56.03 Active [id number] Problem Daytime hypersomnia G47.19 Active 33758339616522 Problem Nocturnal dyspnea R06.00 Active 24 1695248 ALLERGIES No Information ENCOUNTERS Encounter Location Date Diagnosis [place] [address] [place] [id number] [address] [place] [address] Apr, Chronic migraine G43.709 ; E ssential hypertension I10 ; Iron deficiency anemia, unspecified iron deficiency anemia type D50.9 and Long-term use of high-risk medication Z79.899 [place] [id number] [facility] [id number] [address] [place] [address] Feb, Seasonal allergic rhinitis, unspecified allergic rhinitis trigger J30.2 and Chronic migraine G43.709 [place] [address] [facility] [id number] [address] [place] [address] Feb, Anxiety F41.9 [facility] [address] [place] [id number] [address] [place] [address] Feb, Exposure to pertussis Z20.81 8 [place] [address] [place] [id number] [address] [place] [address] Jan, [place] [address] [address] Jan, Chronic migraine G43.709 and Anxiety F41.9 [place] [address] [address] December, Anxiety F41.9 [place] [address] [place] [id number] [place] [address] Nov, Chronic migraine G43.709 ; S easonal allergic rhinitis, unspecified allergic rhinitis trigger J30.2 ; Vitamin D deficiency E55.9 ; Nocturnal dyspnea R06.00 ; Daytime hypersomnia G47.19 and Anxiety F41.9 [place] [id number] [place] [address] Nov, Chronic migraine G43.709 [place] [address] [place] [id number] [address] [place] [address] Oct, [place] [address] [address] Sep, Carpal tunnel syndrome, bila teral G56.03 [place] [address] [place] [id number] [address] [place] [address] Sep, Chronic migraine G43.709 [place] [address] [place] [id number] [address] [place] [address] Aug, [place] [address] [place] [id number] [address] [place] [address] Jul, Seasonal allergic rhinitis, unspecified allergic rhinitis trigger J30.2 [place] [address] [place] [id number] [address] [place] [address] Jul, Seasonal allergic rhinitis, unspecified allergic rhinitis trigger J30.2 [place] [address] [place] [id number] [address] [place] [address] Jul, Chronic migraine G43.709 [facility] [address] [facility] [id number] [address] [place] [address] Jun, [facility] [address] [id number] [address] [place] [address] [id number] May, Dental caries K02.9 [facility] [address] [facility] [id number] [address] [place] [address] May, Chronic migraine G43.709 [facility] [address] [facility] [id number] [address] [place] [address] Apr, Chronic migraine G43.709 ; I yvette deficiency anemia, unspecified iron deficiency anemia type D50.9 ; Perimenopausal N95.1 and Vitamin D deficiency E55.9 [place] [address] [facility] [id number] [address] [place] [address] Mar, [place] [address] [place] [id number] [address] [place] [address] Mar, Seasonal allergic rhinitis, unspecified allergic rhinitis trigger J30.2 [facility] [address] [facility] [id number] [address] [place] [address] Mar, Chronic migraine G43.709 [facility] [address] [facility] [id number] [address] [place] [address] Mar, [facility] [address] [facility] [id number] [address] [place] [address] Mar, Chronic migraine G43.709 ; I rregular menses N92.6 ; Iron deficiency anemia, unspecified iron deficiency anemia type D50.9 and General medical exam Z00.00 [facility] [address] [facility] [id number] [address] [place] [address] Mar, Chronic migraine G43.709 ; I yvette deficiency anemia, unspecified iron deficiency anemia type D50.9 ; Irregular menses N92.6 and General medical exam Z00.00 [facility] [address] [place] [id number] [address] [place] [address] [id number] Feb, Dental examination Z01.20 [facility] [address] [id number] [address] [place] [address] Feb, Chronic tension-type headach e, 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 and Seasonal allergic rhinitis, unspecified allergic rhinitis trigger J30.2 [facility] [address] [id number] [address] [place] [address] Feb, [facility] [address] [id number] [address] [place] [address] Jan, Seasonal allergic rhinitis, unspecified allergic rhinitis trigger J30.2 [facility] [address] [facility] [id number] [address] [place] [address] December, Chronic tension-type headach e, 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 [facility] [address] [id number] [address] [place] [id number] December, Dental examination Z01.20 [facility] [address] [id number] [address] [place] [address] December, [facility] [address] [facility] [id number] [address] [place] [address] Oct, [facility] [address] [id number] [address] [place] [address] Oct, [facility] [address] [facility] [id number] [address] [place] [address] Oct, Sore throat J02.9 and Season al allergic rhinitis, unspecified allergic rhinitis trigger J30.2 [facility] [address] [id number] [address] [place] [address] Oct, [facility] [address] [facility] [id number] [address] [place] [address] Sep, [facility] [address] [facility] [id number] [address] [place] [address] Aug, Menstrual periods irregular N92.6 ; Chronic tension-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, 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 ; Acute upper respiratory infection, unspecified J06.9 and Other viral agents as the cause of diseases classified elsewhere B97.89 [facility] [address] [id number] [address] [place] [address] Jul, [facility] [address] [id number] [address] [place] [address] Jul, [facility] [address] [id number] [address] [place] [address] Jul, Migraine without aura and wi thout status migrainosus, not intractable G43.009 [facility] [address] [id number] [address] [place] [address] Jun, [facility] [address] [facility] [id number] [address] [place] [address] May, Migraine without aura and wi thout status migrainosus, not intractable G43.009 [facility] [address] [id number] [address] [place] [address] May, [facility] [address] [id number] [address] [place] [address] May, [facility] [address] [id number] [address] [place] [address] [id number] Mar, Dental examination Z01.20 [facility] [address] [id number] [address] [place] [address] Mar, [facility] [address] [facility] [id number] [address] [place] [address] Jan, Onychomycosis B35.1 [facility] [address] [id number] [address] [place] [address] Jan, [facility] [address] [facility] [id number] [address] [place] [address] December, Dental caries K02.9 [facility] [address] [id number] [address] [place] [address] Nov, Dental examination Z01.20 [facility] [address] [id number] [address] [place] [address] Oct, Dental examination Z01.20 [facility] [address] [id number] [address] [place] [address] Oct, [facility] [address] [id number] [address] [place] [address] Oct, Migraine G43.909 [facility] [address] [id number] [address] [place] [address] Sep, Onychomycosis B35.1 [facility] [address] [id number] [address] [place] [address] Sep, [facility] [address] [facility] [id number] [address] [place] [address] Aug, [facility] [address] [facility] [id number] [address] [place] [address] Jul, [facility] [address] [id number] [address] [place] [address] Apr, [facility] [address] [facility] [id number] [address] [place] [address] Apr, Right anterior knee pain 719 .46 [facility] [address] [facility] [id number] [address] [place] [address] Mar, Tendonitis 726.90 ; HTN (hyp ertension) 401.9 ; Tremors of nervous system 781.0 and Anxiety 300.00 [facility] [address] [id number] [address] [place] [address] Mar, Thrush 112.0 [facility] [address] [facility] [id number] [address] [place] [address] Feb, [facility] [address] [facility] [id number] [address] [place] [address] Feb, Tremors of nervous system 78 1.0 and Carpal tunnel syndrome 354.0 [facility] [address] [id number] [address] [place] [address] Jan, Anxiety 300.00 ; Tremors of nervous system 781.0 and Tendonitis 726.90 [facility] [address] [id number] [address] [place] [address] Jan, Anxiety 300.00 ; Tremors of nervous system 781.0 and Tendonitis 726.90 [facility] [address] [id number] [address] [place] [address] Jan, Sinusitis 473.9 [facility] [address] [id number] [address] [place] [address] December, [facility] [address] [id number] [address] [place] [phone] December, [facility] [address] [id number] [address] [place] [address] December, [facility] [address] [id number] [address] [place] [address] December, [facility] [address] [id number] [address] [place] [phone] December, [facility] [address] [facility] [id number] [address] [place] [address] Nov, [facility] [address] [id number] [address] [place] [address] Nov, [facility] [address] [id number] [address] [place] [address] Sep, [facility] [address] [id number] [address] [place] [phone] Sep, [facility] [address] [id number] [address] [place] [address] Sep, [facility] [address] [id number] [address] [place] [address] Sep, [facility] [address] [id number] [address] [place] [address], [place] [address] Jul, [facility] [address] [id number] [address] [place] [address], [place] [address] Jul, [facility] [address] [id number] [address] [place] [address], [place] [address] Jul, [facility] [address] [id number] [address] [place] [address], [place] [address] Jul, [facility] [address] [id number] [address] [place] [address], [place] [address] Jul, [facility] [address] [id number] [address] [place] [address], [place] [address] Jul, [facility] [address] [id number] [address] [place] [address], [place] [address] Jul, [facility] [address] [id number] [address] [place] [address], [place] [address] Jul, [facility] [address] [id number] [address] [place] [address], [place] [address] Jul, [facility] [address] [id number] [address] [place] [address], [place] [address] Jul, [facility] [address] [id number] [address] [place] [address], [place] [address] Jun, [facility] [address] [id number] [address] [place] [address], [place] [address] Jun, [facility] [address] [id number] [address] [place] [address], [place] [address] Jun, [facility] [address] [id number] [address] [place] [address], [place] [address] Jun, [facility] [address] [id number] [address] [place] [address], [place] [address] May, [facility] [address] [id number] [address] [place] [address], [place] [address] 28 May, 2014 [facility] [address] [id number] [address] [place] [address], [place] [address] 14 May, 2014 [facility] [address] [id number] [address] [place] [address], [place] [address] 14 May, 2014 [facility] [address] [id number] [address] [place] [address], [place] [address] 17 Apr, 2013 [facility] [address] [id number] [address] [place] [address], [place] [address] 17 Apr, 2013 [facility] [address] [id number] [address] [place] [address], [place] [address] 17 Apr, 2013 [facility] [address] [id number] [address] [place] [address], [place] [address] 17 Apr, 2013 [facility] [address] [id number] [address] [place] [address], [place] [address] 16 Apr, 2013 [facility] [address] [id number] [address] [place] [address], [place] [address] 16 Apr, 2013 [facility] [address] [id number] [address] [place] [address], [place] [address] 03 Apr, 2014 [facility] [address] [id number] [address] [place] [address], [place] [address] 03 Apr, 2014 [facility] [address] [id number] [address] [place] [address], [place] [address] Mar, [facility] [address] [id number] [address] [place] [address], [place] [address] Mar, [facility] [address] [id number] [address] [place] [address], [place] [address] Feb, [facility] [address] [id number] [address] [place] [address], [place] [address] Feb, [facility] [address] [id number] [address] [place] [address], [place] [address] Feb, [facility] [address] [id number] [facility] [address] Feb, [facility] [address] [id number] [facility] [place] [address] Jan, [facility] [address] [id number] [address] [place] [address], [place] [address] Jan, [facility] [address] [id number] [address] [place] [address], [place] [address] Jan, [facility] [address] [id number] [address] [place] [address], [place] [address] Jan, [facility] [address] [id number] [address] [place] [address], [place] [address] Jan, [facility] [address] [id number] [address] [place] [address], [place] [address] Jan, [facility] [address] [id number] [address] [place] [address], [place] [address] December, [facility] [address] [id number] [address] [place] [address], [place] [address] December, [facility] [address] [id number] [address] [place] [address], [place] [address] December, [facility] [address] [id number] [address] [place] [address], [place] [address] December, [facility] [address] [id number] [address] [place] [address], [place] [address] December, [facility] [address] [id number] [address] [place] [address], [place] [address] Nov, [facility] [address] [id number] [address] [place] [address], [place] [address] Nov, [facility] [address] [id number] [address] [place] [address], [place] [address] Nov, [facility] [address] [id number] [address] [place] [address], [place] [address] 23 Nov, 2013 [facility] [address] [id number] [address] [place] [address], [place] [address] Nov, [facility] [address] [id number] [address] [place] [address], [place] [address] Nov, [facility] [address] [id number] [address] [place] [address], [place] [address] Oct, [facility] [address] [id number] [address] [place] [address], [place] [address] Oct, [facility] [address] [id number] [address] [place] [address], [place] [address] Oct, [facility] [address] [id number] [address] [place] [address], [place] [address] Oct, [facility] [address] [id number] [address] [place] [address], [place] [address] 14 Sep, 2013 [facility] [address] [id number] [address] [place] [address], [place] [address] 14 Sep, 2013 [facility] [address] [id number] [address] [place] [address], [place] [address] 10 Sep, 2013 [facility] [address] [id number] [address] [place] [address], [place] [address] 10 Sep, 2013 [facility] [address] [id number] [address] [place] [address], [place] [address] 07 Sep, 2013 [facility] [address] [id number] [address] [place] [address], [place] [address] 06 Sep, 2013 [facility] [address] [id number] [address] [place] [address], [place] [address] 06 Sep, 2013 [facility] [address] [id number] [address] [place] [address], [place] [address] 05 Sep, 2013 [facility] [address] [id number] [address] [place] [address], [place] [address] Sep, [facility] [address] [id number] [address] [place] [address], [place] [address] Sep, [facility] [address] [id number] [address] [place] [address], [place] [address] Sep, [facility] [address] [id number] [address] [place] [address], [place] [address] Sep, [facility] [address] [id number] [address] [place] [address], [place] [address] Sep, [facility] [address] [id number] [address] [place] [address], [place] [address] Aug, [facility] [address] [id number] [address] [place] [address], [place] [address] Aug, [facility] [address] [id number] [address] [place] [address], [place] [address] Jul, [facility] [address] [id number] [address] [place] [address], [place] [address] Jul, [facility] [address] [id number] [address] [place] [address], [place] [address] Jun, [facility] [address] [id number] [address] [place] [address], [place] [address] Jun, [facility] [address] [id number] [address] [place] [address], [place] [address] May, [facility] [address] [id number] [address] [place] [address], [place] [address] Apr, [facility] [address] [id number] [address] [place] [address], [place] [address] Mar, [facility] [address] [id number] [address] [place] [address], [place] [address] Jan, [facility] [address] [id number] [address] [place] [address], [place] [address] December, [facility] [address] [id number] [address] [place] [address], [place] [address] December, [facility] [address] [id number] [address] [place] [address], [place] [address] Oct, [facility] [address] [id number] [address] [place] [address], [place] [address] Oct, [facility] [address] [id number] [address] [place] [address], [place] [address] Sep, [facility] [address] [id number] [address] [place] [address], [place] [address] Aug, [facility] [address] [id number] [address] [place] [address], [place] [address] Aug, [facility] [address] [id number] [address] [place] [address], [place] [address] Jul, [facility] [address] [id number] [address] [place] [address], [place] [address] Jul, [facility] [address] [id number] [address] [place] [address], [place] [address] Mar, [facility] [address] [id number] [address] [place] [address], [place] [address] Mar, [facility] [address] [id number] [address] [place] [address], [place] [address] Feb, [facility] [address] [id number] [address] [place] [address], [place] [address] Feb, [facility] [address] [id number] [address] [place] [address], [place] [address] Feb, [facility] [address] [id number] [address] [place] [address], [place] [address] Jan, [facility] [address] [id number] [address] [place] [address], [place] [address] Nov, [facility] [address] [id number] [address] [place] [address], [place] [address] 17 Sep, 2011 [facility] [address] [id number] [address] [place] [address], [place] [address] 15 Sep, 2011 [facility] [address] [id number] [address] [place] [address], [place] [address] Sep, [facility] [address] [id number] [address] [place] [address], [place] [address] Aug, [facility] [address] [id number] [address] [place] [address], [place] [address] Aug, [facility] [address] [id number] [address] [place] [address], [place] [address] Aug, [facility] [address] [address] [id number] [address] [place] [address], [place] [address] Jun, [facility] [address] [id number] [address] [place] [address], [place] [address] Jun, [facility] [address] [id number] [address] [place] [address], [place] [address] Jun, [facility] [address] [id number] [address] [place] [address], [place] [address] Jun, [facility] [address] [id number] [address] [place] [address], [place] [address] May, [facility] [address] [id number] [address] [place] [address], [place] [address] May, [facility] [address] [id number] [address] [place] [id number] May, [facility] [address] [id number] [address] [place] [address], [place] [address] May, [facility] [address] [id number] [address] [place] [address], [place] [address] Jun, [facility] [address] [id number] [address] [place] [address], [place] [address] December, [facility] [address] [id number] [facility] [place] [address] 29 May, 2009 IMMUNIZATIONS No Known Immunizations [...]
--- OUTSIDE RECORDS SUMMARY | 2020-03-17 19:15 | XMS REPORT ---
Author Author Ann MCHUGH Organization [facility] Address [address] [place] [address] Care Team Providers Care Electrical Technology Instructor Name Role Phone RAFAELA MCHUGH Unavailable PROBLEMS Type Condition ICD9-CM Code WOQ40-BG Code Onset Dates Condition S tatus SNOMED Code Problem Perimenopausal N95.1 Active 14291 [id number] Problem Seasonal allergic rhinitis, unspecified allergic rhinitis trigger J30.2 Active 238437776 Problem Chronic migraine G43.709 Active 377 33731 Problem Anxiety F41.9 Active 78066573 Problem Vitamin D deficiency E55.9 Active 97790870 Problem Essential hypertension I10 Active 71781485 Problem Iron deficiency anemia, unspecified iron deficiency an emia type D50.9 Active 63237639 Problem Carpal tunnel syndrome, bilateral G56.03 Active [id number] Problem Daytime hypersomnia G47.19 Active [id number] Problem Nocturnal dyspnea R06.00 Active 24 6251063 ALLERGIES No Information ENCOUNTERS Encounter Location Date Diagnosis [place] [address] [place] [id number] [place] [address] Apr, Chronic migraine G43.709 ; E ssential hypertension I10 ; Iron deficiency anemia, unspecified iron deficiency anemia type D50.9 and Long-term use of high-risk medication Z79.899 [place] [id number] [place] [facility] [place] [id number] [address] [place] [address] Feb, Seasonal allergic rhinitis, unspecified allergic rhinitis trigger J30.2 and Chronic migraine G43.709 [place] [address] [facility] [place] [id number] [address] [place] [address] Feb, Anxiety F41.9 [facility] [address] [place] [id number] [address] [place] [address] Feb, Exposure to pertussis Z20.81 8 [place] [address] [place] [id number] [place] [address] Jan, [place] [address] [address] Jan, Chronic migraine G43.709 and Anxiety F41.9 [place] [address] [address] December, Anxiety F41.9 [place] [address] [place] [id number] [place] [address] Nov, Chronic migraine G43.709 ; S easonal allergic rhinitis, unspecified allergic rhinitis trigger J30.2 ; Vitamin D deficiency E55.9 ; Nocturnal dyspnea R06.00 ; Daytime hypersomnia G47.19 and Anxiety F41.9 [place] [id number] [place] [address] Nov, Chronic migraine G43.709 [place] [address] [place] [id number] [place] [address] Oct, [place] [address] [address] Sep, Carpal tunnel syndrome, bila teral G56.03 [place] [address] [place] [id number] [address] [place] [address] Sep, Chronic migraine G43.709 [place] [address] [place] [id number] [address] [place] [address] Aug, [place] [address] [place] [id number] [address] [place] [address] Jul, Seasonal allergic rhinitis, unspecified allergic rhinitis trigger J30.2 [place] [address] [place] [id number] [address] [place] [address] Jul, Seasonal allergic rhinitis, unspecified allergic rhinitis trigger J30.2 [place] [address] [place] [id number] [address] [place] [address] Jul, Chronic migraine G43.709 [facility] [address] [facility] [place] [id number] [address] [place] [address] Jun, [facility] [address] [id number] [address] [place] [id number] May, Dental caries K02.9 [facility] [address] [facility] [place] [id number] [address] [place] [address] May, Chronic migraine G43.709 [facility] [address] [facility] [place] [id number] [address] [place] [address] Apr, Chronic migraine G43.709 ; I yvette deficiency anemia, unspecified iron deficiency anemia type D50.9 ; Perimenopausal N95.1 and Vitamin D deficiency E55.9 [place] [id number] [facility] [place] [id number] [address] [place] [address] Mar, [place] [address] [place] [id number] [address] [place] [address] Mar, Seasonal allergic rhinitis, unspecified allergic rhinitis trigger J30.2 [facility] [address] [facility] [place] [id number] [address] [place] [address] Mar, Chronic migraine G43.709 [facility] [address] [facility] [place] [id number] [address] [place] [address] Mar, [facility] [address] [facility] [place] [id number] [address] [place] [address] Mar, Chronic migraine G43.709 ; I rregular menses N92.6 ; Iron deficiency anemia, unspecified iron deficiency anemia type D50.9 and General medical exam Z00.00 [facility] [address] [facility] [place] [id number] [address] [place] [address] Mar, Chronic migraine G43.709 ; I yvette deficiency anemia, unspecified iron deficiency anemia type D50.9 ; Irregular menses N92.6 and General medical exam Z00.00 [facility] [address] [place] [id number] [address] [place] [address] [id number] Feb, Dental examination Z01.20 [facility] [address] [id number] [address] [place] [address] Feb, Chronic tension-type headach e, 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 and Seasonal allergic rhinitis, unspecified allergic rhinitis trigger J30.2 [facility] [address] [id number] [address] [place] [address] Feb, [facility] [address] [id number] [address] [place] [address] Jan, Seasonal allergic rhinitis, unspecified allergic rhinitis trigger J30.2 [facility] [address] [facility] [place] [id number] [address] [place] [address] December, Chronic tension-type headach e, 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 [facility] [address] [id number] [address] [place] [address] [id number] December, Dental examination Z01.20 [facility] [address] [id number] [address] [place] [address] December, [facility] [address] [facility] [place] [id number] [address] [place] [address] Oct, [facility] [address] [id number] [address] [place] [address] Oct, [facility] [address] [facility] [place] [id number] [address] [place] [address] Oct, Sore throat J02.9 and Season al allergic rhinitis, unspecified allergic rhinitis trigger J30.2 [facility] [address] [id number] [address] [place] [address] Oct, [facility] [address] [facility] [place] [id number] [address] [place] [address] Sep, [facility] [address] [facility] [place] [id number] [address] [place] [address] Aug, Menstrual periods irregular N92.6 ; Chronic tension-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, 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 ; Acute upper respiratory infection, unspecified J06.9 and Other viral agents as the cause of diseases classified elsewhere B97.89 [facility] [address] [id number] [address] [place] [address] Jul, [facility] [address] [id number] [address] [place] [address] Jul, [facility] [address] [id number] [address] [place] [address] Jul, Migraine without aura and wi thout status migrainosus, not intractable G43.009 [facility] [address] [id number] [address] [place] [address] Jun, [facility] [address] [facility] [place] [id number] [address] [place] [address] May, Migraine without aura and wi thout status migrainosus, not intractable G43.009 [facility] [address] [id number] [address] [place] [address] May, [facility] [address] [id number] [address] [place] [address] May, [facility] [address] [id number] [address] [place] [address] [id number] Mar, Dental examination Z01.20 [facility] [address] [id number] [address] [place] [address] Mar, [facility] [address] [facility] [place] [id number] [address] [place] [address] Jan, Onychomycosis B35.1 [facility] [address] [id number] [address] [place] [address] Jan, [facility] [address] [facility] [place] [id number] [address] [place] [address] December, Dental caries K02.9 [facility] [address] [id number] [address] [place] [address] Nov, Dental examination Z01.20 [facility] [address] [id number] [address] [place] [address] Oct, Dental examination Z01.20 [facility] [address] [id number] [address] [place] [phone] Oct, [facility] [address] [id number] [address] [place] [address] Oct, Migraine G43.909 [facility] [address] [id number] [address] [place] [address] Sep, Onychomycosis B35.1 [facility] [address] [id number] [address] [place] [phone] Sep, [facility] [address] [facility] [place] [id number] [address] [place] [address] Aug, [facility] [address] [facility] [place] [id number] [address] [place] [id number] Jul, [facility] [address] [id number] [address] [place] [id number] Apr, [facility] [address] [facility] [place] [id number] [address] [place] [address] Apr, Right anterior knee pain 719 .46 [facility] [address] [facility] [place] [id number] [address] [place] [address] Mar, Tendonitis 726.90 ; HTN (hyp ertension) 401.9 ; Tremors of nervous system 781.[address] [facility] [address] [id number] [address] [place] [id number] Mar, Thrush 112.0 [facility] [address] [facility] [place] [id number] [address] [place] [id number] Feb, [facility] [address] [facility] [place] [id number] [address] [place] [address] Feb, Tremors of nervous system 78 1.0 and Carpal tunnel syndrome 354.0 [facility] [address] [id number] [address] [place] [address] Jan, Anxiety 300.00 ; Tremors of nervous system 781.[address] [facility] [address] [id number] [address] [place] [address] Jan, Anxiety 300.00 ; Tremors of nervous system 781.[address] [facility] [address] [id number] [address] [place] [address] Jan, Sinusitis 473.9 [facility] [address] [id number] [address] [place] [address] December, [facility] [address] [id number] [address] [place] [address] December, [facility] [address] [id number] [address] [place] [address] December, [facility] [address] [id number] [address] [place] [address] December, [facility] [address] [id number] [address] [place] [address] December, [facility] [address] [facility] [place] [id number] [address] [place] [address] Nov, [facility] [address] [id number] [address] [place] [phone] Nov, [facility] [address] [id number] [address] [place] [address] Sep, [facility] [address] [id number] [address] [place] [phone] Sep, [facility] [address] [id number] [address] [place] [address] Sep, [facility] [address] [id number] [address] [place] [address] Sep, [facility] [address] [id number] [address] [place] [address], [place] [address] Jul, [facility] [address] [id number] [address] [place] [address], [place] [address] Jul, [facility] [address] [id number] [address] [place] [address], [place] [address] Jul, [facility] [address] [id number] [address] [place] [address], [place] [address] Jul, [facility] [address] [id number] [address] [place] [address], [place] [address] Jul, [facility] [address] [id number] [address] [place] [address], [place] [address] Jul, [facility] [address] [id number] [address] [place] [address], [place] [address] Jul, [facility] [address] [id number] [address] [place] [address], [place] [address] Jul, [facility] [address] [id number] [address] [place] [address], [place] [address] Jul, [facility] [address] [id number] [address] [place] [address], [place] [address] Jul, [facility] [address] [id number] [address] [place] [address], [place] [address] Jun, [facility] [address] [id number] [address] [place] [address], [place] [address] Jun, [facility] [address] [id number] [address] [place] [address], [place] [address] Jun, [facility] [address] [id number] [address] [place] [address], [place] [address] Jun, [facility] [address] [id number] [address] [place] [address], [place] [address] May, [facility] [address] [id number] [address] [place] [address], [place] [address] 28 May, 2014 [facility] [address] [id number] [address] [place] [address], [place] [address] 14 May, 2014 [facility] [address] [id number] [address] [place] [address], [place] [address] 14 May, 2014 [facility] [address] [id number] [address] [place] [address], [place] [address] 17 Apr, 2013 [facility] [address] [id number] [address] [place] [address], [place] [address] 17 Apr, 2013 [facility] [address] [id number] [address] [place] [address], [place] [address] 17 Apr, 2013 [facility] [address] [id number] [address] [place] [address], [place] [address] 17 Apr, 2013 [facility] [address] [id number] [address] [place] [address], [place] [address] 16 Apr, 2013 [facility] [address] [id number] [address] [place] [address], [place] [address] 16 Apr, 2013 [facility] [address] [id number] [address] [place] [address], [place] [address] 03 Apr, 2014 [facility] [address] [id number] [address] [place] [address], [place] [address] 03 Apr, 2014 [facility] [address] [id number] [address] [place] [address], [place] [address] Mar, [facility] [address] [id number] [address] [place] [address], [place] [address] Mar, [facility] [address] [id number] [address] [place] [address], [place] [address] Feb, [facility] [address] [id number] [address] [place] [address], [place] [address] Feb, [facility] [address] [id number] [address] [place] [address], [place] [address] Feb, [facility] [address] [id number] [facility] [place] [address] Feb, [facility] [address] [id number] [facility] [place] [address] Jan, [facility] [address] [id number] [address] [place] [address], [place] [address] Jan, [facility] [address] [id number] [address] [place] [address], [place] [address] Jan, [facility] [address] [id number] [address] [place] [address], [place] [address] Jan, [facility] [address] [id number] [address] [place] [address], [place] [address] Jan, [facility] [address] [id number] [address] [place] [address], [place] [address] Jan, [facility] [address] [id number] [address] [place] [address], [place] [address] December, [facility] [address] [id number] [address] [place] [address], [place] [address] December, [facility] [address] [id number] [address] [place] [address], [place] [address] December, [facility] [address] [id number] [address] [place] [address], [place] [address] December, [facility] [address] [id number] [address] [place] [address], [place] [address] December, [facility] [address] [id number] [address] [place] [address], [place] [address] Nov, [facility] [address] [id number] [address] [place] [address], [place] [address] Nov, [facility] [address] [id number] [address] [place] [address], [place] [address] Nov, [facility] [address] [id number] [address] [place] [address], [place] [address] 23 Nov, 2013 [facility] [address] [id number] [address] [place] [address], [place] [address] Nov, [facility] [address] [id number] [address] [place] [address], [place] [address] Nov, [facility] [address] [id number] [address] [place] [address], [place] [address] Oct, [facility] [address] [id number] [address] [place] [address], [place] [address] Oct, [facility] [address] [id number] [address] [place] [address], [place] [address] Oct, [facility] [address] [id number] [address] [place] [address], [place] [address] Oct, [facility] [address] [id number] [address] [place] [address], [place] [address] 14 Sep, 2013 [facility] [address] [id number] [address] [place] [address], [place] [address] 14 Sep, 2013 [facility] [address] [id number] [address] [place] [address], [place] [address] 10 Sep, 2013 [facility] [address] [id number] [address] [place] [address], [place] [address] 10 Sep, 2013 [facility] [address] [id number] [address] [place] [address], [place] [address] 07 Sep, 2013 [facility] [address] [id number] [address] [place] [address], [place] [address] 06 Sep, 2013 [facility] [address] [id number] [address] [place] [address], [place] [address] 06 Sep, 2013 [facility] [address] [id number] [address] [place] [address], [place] [address] 05 Sep, 2013 [facility] [address] [id number] [address] [place] [address], [place] [address] Sep, [facility] [address] [id number] [address] [place] [address], [place] [address] Sep, [facility] [address] [id number] [address] [place] [address], [place] [address] Sep, [facility] [address] [id number] [address] [place] [address], [place] [address] Sep, [facility] [address] [id number] [address] [place] [address], [place] [address] Sep, [facility] [address] [id number] [address] [place] [address], [place] [address] Aug, [facility] [address] [id number] [address] [place] [address], [place] [address] Aug, [facility] [address] [id number] [address] [place] [address], [place] [address] Jul, [facility] [address] [id number] [address] [place] [address], [place] [address] Jul, [facility] [address] [id number] [address] [place] [address], [place] [address] Jun, [facility] [address] [id number] [address] [place] [address], [place] [address] Jun, [facility] [address] [id number] [address] [place] [address], [place] [address] May, [facility] [address] [id number] [address] [place] [address], [place] [address] Apr, [facility] [address] [id number] [address] [place] [address], [place] [address] Mar, [facility] [address] [id number] [address] [place] [address], [place] [address] Jan, [facility] [address] [id number] [address] [place] [address], [place] [address] December, [facility] [address] [id number] [address] [place] [address], [place] [address] December, [facility] [address] [id number] [address] [place] [address], [place] [address] Oct, [facility] [address] [id number] [address] [place] [address], [place] [address] Oct, [facility] [address] [id number] [address] [place] [address], [place] [address] Sep, [facility] [address] [id number] [address] [place] [address], [place] [address] Aug, [facility] [address] [id number] [address] [place] [address], [place] [address] Aug, [facility] [address] [id number] [address] [place] [address], [place] [address] Jul, [facility] [address] [id number] [address] [place] [address], [place] [address] Jul, [facility] [address] [id number] [address] [place] [address], [place] [address] Mar, [facility] [address] [id number] [address] [place] [address], [place] [address] Mar, [facility] [address] [id number] [address] [place] [address], [place] [address] Feb, [facility] [address] [id number] [address] [place] [address], [place] [address] Feb, [facility] [address] [id number] [address] [place] [address], [place] [address] Feb, [facility] [address] [id number] [address] [place] [address], [place] [address] Jan, [facility] [address] [id number] [address] [place] [address], [place] [address] Nov, [facility] [address] [id number] [address] [place] [address], [place] [id number] 17 Sep, 2011 [facility] [address] [id number] [address] [place] [address], [place] [id number] 15 Sep, 2011 [facility] [address] [id number] [address] [place] [address], [place] [address] Sep, [facility] [address] [id number] [address] [place] [address], [place] [address] Aug, [facility] [address] [id number] [address] [place] [address], [place] [address] Aug, [facility] [address] [id number] [address] [place] [address], [place] [address] Aug, [facility] [address] [id number] [address] [place] [address], [place] [address] Jun, [facility] [address] [id number] [address] [place] [address], [place] [id number] Jun, [facility] [address] [id number] [address] [place] [address], [place] [address] Jun, [facility] [address] [id number] [address] [place] [address], [place] [address] Jun, [facility] [address] [id number] [address] [place] [address], [place] [address] May, [facility] [address] [id number] [address] [place] [address], [place] [address] May, [facility] [address] [id number] [address] [place] [id number] May, [facility] [address] [id number] [address] [place] [address], [place] [address] May, [facility] [address] [id number] [address] [place] [address], [place] [address] Jun, [facility] [address] [id number] [address] [place] [address], [place] [address] December, [facility] [address] [id number] [facility] [place] [address] 29 May, 2009 IMMUNIZATIONS No Known Immunizations [...]
--- OUTSIDE RECORDS SUMMARY | 2020-03-17 19:15 | XMS REPORT ---
Author Author Ann MCHUGH Organization [facility] Address [address] [place] [address] Care Team Providers Care Computer Forensics Technician Name Role Phone RAFAELA MCHUGH Unavailable PROBLEMS Type Condition ICD9-CM Code CLV05-RH Code Onset Dates Condition S tatus SNOMED Code Problem Perimenopausal N95.1 Active 71903 [id number] Problem Seasonal allergic rhinitis, unspecified allergic rhinitis trigger J30.2 Active 951112439 Problem Chronic migraine G43.709 Active 377 90863 Problem Anxiety F41.9 Active 47596447 Problem Vitamin D deficiency E55.9 Active 63641244 Problem Essential hypertension I10 Active 30776908 Problem Iron deficiency anemia, unspecified iron deficiency an emia type D50.9 Active 58890138 Problem Carpal tunnel syndrome, bilateral G56.03 Active [id number] Problem Daytime hypersomnia G47.19 Active 78569849842694 Problem Nocturnal dyspnea R06.00 Active 24 2098310 ALLERGIES No Information ENCOUNTERS Encounter Location Date Diagnosis [place] [address] [place] [id number] [address] [place] [address] Apr, Chronic migraine G43.709 ; E ssential hypertension I10 ; Iron deficiency anemia, unspecified iron deficiency anemia type D50.9 and Long-term use of high-risk medication Z79.899 [place] [id number] [facility] [id number] [address] [place] [address] Feb, Seasonal allergic rhinitis, unspecified allergic rhinitis trigger J30.2 and Chronic migraine G43.709 [place] [address] [facility] [id number] [address] [place] [address] Feb, Anxiety F41.9 [facility] [address] [place] [id number] [address] [place] [address] Feb, Exposure to pertussis Z20.81 8 [place] [address] [place] [id number] [address] [place] [address] Jan, [place] [address] [address] Jan, Chronic migraine G43.709 and Anxiety F41.9 [place] [address] [address] December, Anxiety F41.9 [place] [address] [place] [id number] [place] [address] Nov, Chronic migraine G43.709 ; S easonal allergic rhinitis, unspecified allergic rhinitis trigger J30.2 ; Vitamin D deficiency E55.9 ; Nocturnal dyspnea R06.00 ; Daytime hypersomnia G47.19 and Anxiety F41.9 [place] [id number] [place] [address] Nov, Chronic migraine G43.709 [place] [address] [place] [id number] [address] [place] [address] Oct, [place] [address] [address] Sep, Carpal tunnel syndrome, bila teral G56.03 [place] [address] [place] [id number] [address] [place] [address] Sep, Chronic migraine G43.709 [place] [address] [place] [id number] [address] [place] [address] Aug, [place] [address] [place] [id number] [address] [place] [address] Jul, Seasonal allergic rhinitis, unspecified allergic rhinitis trigger J30.2 [place] [address] [place] [id number] [address] [place] [address] Jul, Seasonal allergic rhinitis, unspecified allergic rhinitis trigger J30.2 [place] [address] [place] [id number] [address] [place] [address] Jul, Chronic migraine G43.709 [facility] [address] [facility] [id number] [address] [place] [address] Jun, [facility] [address] [id number] [address] [place] [id number] May, Dental caries K02.9 [facility] [address] [facility] [id number] [address] [place] [address] May, Chronic migraine G43.709 [facility] [address] [facility] [id number] [address] [place] [address] Apr, Chronic migraine G43.709 ; I yvette deficiency anemia, unspecified iron deficiency anemia type D50.9 ; Perimenopausal N95.1 and Vitamin D deficiency E55.9 [place] [address] [facility] [id number] [address] [place] [address] Mar, [place] [address] [place] [id number] [address] [place] [address] Mar, Seasonal allergic rhinitis, unspecified allergic rhinitis trigger J30.2 [facility] [address] [facility] [id number] [address] [place] [address] Mar, Chronic migraine G43.709 [facility] [address] [facility] [id number] [address] [place] [address] Mar, [facility] [address] [facility] [id number] [address] [place] [address] Mar, Chronic migraine G43.709 ; I rregular menses N92.6 ; Iron deficiency anemia, unspecified iron deficiency anemia type D50.9 and General medical exam Z00.00 [facility] [address] [facility] [id number] [address] [place] [address] Mar, Chronic migraine G43.709 ; I yvette deficiency anemia, unspecified iron deficiency anemia type D50.9 ; Irregular menses N92.6 and General medical exam Z00.00 [facility] [address] [place] [id number] [address] [place] [address] [id number] Feb, Dental examination Z01.20 [facility] [address] [id number] [address] [place] [address] Feb, Chronic tension-type headach e, 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 and Seasonal allergic rhinitis, unspecified allergic rhinitis trigger J30.2 [facility] [address] [id number] [address] [place] [address] Feb, [facility] [address] [id number] [address] [place] [address] Jan, Seasonal allergic rhinitis, unspecified allergic rhinitis trigger J30.2 [facility] [address] [facility] [id number] [address] [place] [address] December, Chronic tension-type headach e, 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 [facility] [address] [id number] [address] [place] [id number] December, Dental examination Z01.20 [facility] [address] [id number] [address] [place] [address] December, [facility] [address] [facility] [id number] [address] [place] [address] Oct, [facility] [address] [id number] [address] [place] [address] Oct, [facility] [address] [facility] [id number] [address] [place] [address] Oct, Sore throat J02.9 and Season al allergic rhinitis, unspecified allergic rhinitis trigger J30.2 [facility] [address] [id number] [address] [place] [address] Oct, [facility] [address] [facility] [id number] [address] [place] [address] Sep, [facility] [address] [facility] [id number] [address] [place] [address] Aug, Menstrual periods irregular N92.6 ; Chronic tension-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, 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 ; Acute upper respiratory infection, unspecified J06.9 and Other viral agents as the cause of diseases classified elsewhere B97.89 [facility] [address] [id number] [address] [place] [address] Jul, [facility] [address] [id number] [address] [place] [address] Jul, [facility] [address] [id number] [address] [place] [address] Jul, Migraine without aura and wi thout status migrainosus, not intractable G43.009 [facility] [address] [id number] [address] [place] [address] Jun, [facility] [address] [facility] [id number] [address] [place] [address] May, Migraine without aura and wi thout status migrainosus, not intractable G43.009 [facility] [address] [id number] [address] [place] [address] May, [facility] [address] [id number] [address] [place] [address] May, [facility] [address] [id number] [address] [place] [address] [id number] Mar, Dental examination Z01.20 [facility] [address] [id number] [address] [place] [address] Mar, [facility] [address] [facility] [id number] [address] [place] [address] Jan, Onychomycosis B35.1 [facility] [address] [id number] [address] [place] [address] Jan, [facility] [address] [facility] [id number] [address] [place] [address] December, Dental caries K02.9 [facility] [address] [id number] [address] [place] [address] Nov, Dental examination Z01.20 [facility] [address] [id number] [address] [place] [address] Oct, Dental examination Z01.20 [facility] [address] [id number] [address] [place] [address] Oct, [facility] [address] [id number] [address] [place] [address] Oct, Migraine G43.909 [facility] [address] [id number] [address] [place] [address] Sep, Onychomycosis B35.1 [facility] [address] [id number] [address] [place] [address] Sep, [facility] [address] [facility] [id number] [address] [place] [address] Aug, [facility] [address] [facility] [id number] [address] [place] [address] Jul, [facility] [address] [id number] [address] [place] [address] Apr, [facility] [address] [facility] [id number] [address] [place] [address] Apr, Right anterior knee pain 719 .46 [facility] [address] [facility] [id number] [address] [place] [address] Mar, Tendonitis 726.90 ; HTN (hyp ertension) 401.9 ; Tremors of nervous system 781.0 and Anxiety 300.00 [facility] [address] [id number] [address] [place] [address] Mar, Thrush 112.0 [facility] [address] [facility] [id number] [address] [place] [address] Feb, [facility] [address] [facility] [id number] [address] [place] [address] Feb, Tremors of nervous system 78 1.0 and Carpal tunnel syndrome 354.0 [facility] [address] [id number] [address] [place] [address] Jan, Anxiety 300.00 ; Tremors of nervous system 781.0 and Tendonitis 726.90 [facility] [address] [id number] [address] [place] [address] Jan, Anxiety 300.00 ; Tremors of nervous system 781.0 and Tendonitis 726.90 [facility] [address] [id number] [address] [place] [address] Jan, Sinusitis 473.9 [facility] [address] [id number] [address] [place] [address] December, [facility] [address] [id number] [address] [place] [address] December, [facility] [address] [id number] [address] [place] [address] December, [facility] [address] [id number] [address] [place] [address] December, [facility] [address] [id number] [address] [place] [address] December, [facility] [address] [facility] [id number] [address] [place] [address] Nov, [facility] [address] [id number] [address] [place] [address] Nov, [facility] [address] [id number] [address] [place] [address] Sep, [facility] [address] [id number] [address] [place] [address] Sep, [facility] [address] [id number] [address] [place] [address] Sep, [facility] [address] [id number] [address] [place] [address] Sep, [facility] [address] [id number] [address] [place] [address], [place] [address] Jul, [facility] [address] [id number] [address] [place] [address], [place] [address] Jul, [facility] [address] [id number] [address] [place] [address], [place] [address] Jul, [facility] [address] [id number] [address] [place] [address], [place] [address] Jul, [facility] [address] [id number] [address] [place] [address], [place] [address] Jul, [facility] [address] [id number] [address] [place] [address], [place] [address] Jul, [facility] [address] [id number] [address] [place] [address], [place] [address] Jul, [facility] [address] [id number] [address] [place] [address], [place] [address] Jul, [facility] [address] [id number] [address] [place] [address], [place] [address] Jul, [facility] [address] [id number] [address] [place] [address], [place] [address] Jul, [facility] [address] [id number] [address] [place] [address], [place] [address] Jun, [facility] [address] [id number] [address] [place] [address], [place] [address] Jun, [facility] [address] [id number] [address] [place] [address], [place] [address] Jun, [facility] [address] [id number] [address] [place] [address], [place] [address] Jun, [facility] [address] [id number] [address] [place] [address], [place] [address] May, [facility] [address] [id number] [address] [place] [address], [place] [address] 28 May, 2014 [facility] [address] [id number] [address] [place] [address], [place] [address] 14 May, 2014 [facility] [address] [id number] [address] [place] [address], [place] [address] 14 May, 2014 [facility] [address] [id number] [address] [place] [address], [place] [address] 17 Apr, 2013 [facility] [address] [id number] [address] [place] [address], [place] [address] 17 Apr, 2013 [facility] [address] [id number] [address] [place] [address], [place] [address] 17 Apr, 2013 [facility] [address] [id number] [address] [place] [address], [place] [address] 17 Apr, 2013 [facility] [address] [id number] [address] [place] [address], [place] [address] 16 Apr, 2013 [facility] [address] [id number] [address] [place] [address], [place] [address] 16 Apr, 2013 [facility] [address] [id number] [address] [place] [address], [place] [address] 03 Apr, 2014 [facility] [address] [id number] [address] [place] [address], [place] [address] 03 Apr, 2014 [facility] [address] [id number] [address] [place] [address], [place] [address] Mar, [facility] [address] [id number] [address] [place] [address], [place] [address] Mar, [facility] [address] [id number] [address] [place] [address], [place] [address] Feb, [facility] [address] [id number] [address] [place] [address], [place] [address] Feb, [facility] [address] [id number] [address] [place] [address], [place] [address] Feb, [facility] [address] [id number] [facility] [place] [address] Feb, [facility] [address] [id number] [facility] [place] [address] Jan, [facility] [address] [id number] [address] [place] [address], [place] [address] Jan, [facility] [address] [id number] [address] [place] [address], [place] [address] Jan, [facility] [address] [id number] [address] [place] [address], [place] [address] Jan, [facility] [address] [id number] [address] [place] [address], [place] [address] Jan, [facility] [address] [id number] [address] [place] [address], [place] [address] Jan, [facility] [address] [id number] [address] [place] [address], [place] [address] December, [facility] [address] [id number] [address] [place] [address], [place] [address] December, [facility] [address] [id number] [address] [place] [address], [place] [address] December, [facility] [address] [id number] [address] [place] [address], [place] [address] December, [facility] [address] [id number] [address] [place] [address], [place] [address] December, [facility] [address] [id number] [address] [place] [address], [place] [address] Nov, [facility] [address] [id number] [address] [place] [address], [place] [address] Nov, [facility] [address] [id number] [address] [place] [address], [place] [address] Nov, [facility] [address] [id number] [address] [place] [address], [place] [address] 23 Nov, 2013 [facility] [address] [id number] [address] [place] [address], [place] [address] Nov, [facility] [address] [id number] [address] [place] [address], [place] [address] Nov, [facility] [address] [id number] [address] [place] [address], [place] [address] Oct, [facility] [address] [id number] [address] [place] [address], [place] [address] Oct, [facility] [address] [id number] [address] [place] [address], [place] [address] Oct, [facility] [address] [id number] [address] [place] [address], [place] [address] Oct, [facility] [address] [id number] [address] [place] [address], [place] [address] 14 Sep, 2013 [facility] [address] [id number] [address] [place] [address], [place] [address] 14 Sep, 2013 [facility] [address] [id number] [address] [place] [address], [place] [address] 10 Sep, 2013 [facility] [address] [id number] [address] [place] [address], [place] [address] 10 Sep, 2013 [facility] [address] [id number] [address] [place] [address], [place] [address] 07 Sep, 2013 [facility] [address] [id number] [address] [place] [address], [place] [address] 06 Sep, 2013 [facility] [address] [id number] [address] [place] [address], [place] [address] 06 Sep, 2013 [facility] [address] [id number] [address] [place] [address], [place] [address] 05 Sep, 2013 [facility] [address] [id number] [address] [place] [address], [place] [address] Sep, [facility] [address] [id number] [address] [place] [address], [place] [address] Sep, [facility] [address] [id number] [address] [place] [address], [place] [address] Sep, [facility] [address] [id number] [address] [place] [address], [place] [address] Sep, [facility] [address] [id number] [address] [place] [address], [place] [address] Sep, [facility] [address] [id number] [address] [place] [address], [place] [address] Aug, [facility] [address] [id number] [address] [place] [address], [place] [address] Aug, [facility] [address] [id number] [address] [place] [address], [place] [address] Jul, [facility] [address] [id number] [address] [place] [address], [place] [address] Jul, [facility] [address] [id number] [address] [place] [address], [place] [address] Jun, [facility] [address] [id number] [address] [place] [address], [place] [address] Jun, [facility] [address] [id number] [address] [place] [address], [place] [address] May, [facility] [address] [id number] [address] [place] [address], [place] [address] Apr, [facility] [address] [id number] [address] [place] [address], [place] [address] Mar, [facility] [address] [id number] [address] [place] [address], [place] [address] Jan, [facility] [address] [id number] [address] [place] [address], [place] [address] December, [facility] [address] [id number] [address] [place] [address], [place] [address] December, [facility] [address] [id number] [address] [place] [address], [place] [address] Oct, [facility] [address] [id number] [address] [place] [address], [place] [address] Oct, [facility] [address] [id number] [address] [place] [address], [place] [address] Sep, [facility] [address] [id number] [address] [place] [address], [place] [address] Aug, [facility] [address] [id number] [address] [place] [address], [place] [address] Aug, [facility] [address] [id number] [address] [place] [address], [place] [address] Jul, [facility] [address] [id number] [address] [place] [address], [place] [address] Jul, [facility] [address] [id number] [address] [place] [address], [place] [address] Mar, [facility] [address] [id number] [address] [place] [address], [place] [address] Mar, [facility] [address] [id number] [address] [place] [address], [place] [address] Feb, [facility] [address] [id number] [address] [place] [address], [place] [address] Feb, [facility] [address] [id number] [address] [place] [address], [place] [address] Feb, [facility] [address] [id number] [address] [place] [address], [place] [address] Jan, [facility] [address] [id number] [address] [place] [address], [place] [address] Nov, [facility] [address] [id number] [address] [place] [address], [place] [address] 17 Sep, 2011 [facility] [address] [id number] [address] [place] [address], [place] [address] 15 Sep, 2011 [facility] [address] [id number] [address] [place] [address], [place] [address] Sep, [facility] [address] [id number] [address] [place] [address], [place] [address] Aug, [facility] [address] [id number] [address] [place] [address], [place] [address] Aug, [facility] [address] [id number] [address] [place] [address], [place] [address] Aug, [facility] [address] [id number] [address] [place] [address], [place] [address] Jun, [facility] [address] [id number] [address] [place] [address], [place] [address] Jun, [facility] [address] [id number] [address] [place] [address], [place] [address] Jun, [facility] [address] [id number] [address] [place] [address], [place] [address] Jun, [facility] [address] [id number] [address] [place] [address], [place] [address] May, [facility] [address] [id number] [address] [place] [place] [address], [place] [id number] May, [facility] [address] [id number] [address] [place] [id number] May, [facility] [address] [id number] [address] [place] [address], [place] [id number] May, [facility] [address] [id number] [address] [place] [address], [place] [id number] Jun, [facility] [address] [id number] [address] [place] [address], [place] [id number] December, [facility] [address] [id number] [facility] [place] [address] 29 May, 2009 IMMUNIZATIONS No Known Immunizations [...]
--- OUTSIDE RECORDS SUMMARY | 2020-03-17 19:15 | XMS REPORT ---
Author Author Ann English Organization [facility] Address [address] [place] [address] Care Team Providers Care Consulting Database Administrator Name Role Phone JULIA English Unavailable PROBLEMS Type Condition ICD9-CM Code WRF86-QA Code Onset Dates Condition S tatus SNOMED Code Problem Perimenopausal N95.1 Active 69050 [id number] Problem Seasonal allergic rhinitis, unspecified allergic rhinitis trigger J30.2 Active 151615580 Problem Chronic migraine G43.709 Active 377 90781 Problem Anxiety F41.9 Active 34357993 Problem Vitamin D deficiency E55.9 Active 31315102 Problem Essential hypertension I10 Active 64890774 Problem Iron deficiency anemia, unspecified iron deficiency an emia type D50.9 Active 18548535 Problem Carpal tunnel syndrome, bilateral G56.03 Active [id number] Problem Daytime hypersomnia G47.19 Active [id number] Problem Nocturnal dyspnea R06.00 Active 24 [id number] ALLERGIES No Information ENCOUNTERS Encounter Location Date Diagnosis [place] [address] [facility] [id number] [address] [place] [address] Apr, Chronic migraine G43.709 ; E ssential hypertension I10 ; Iron deficiency anemia, unspecified iron deficiency anemia type D50.9 and Long-term use of high-risk medication Z79.899 [place] [address] [facility] [id number] [address] [place] [address] Feb, Seasonal allergic rhinitis, unspecified allergic rhinitis trigger J30.2 and Chronic migraine G43.709 [place] [address] [facility] [id number] [address] [place] [address] Feb, Anxiety F41.9 [place] [address] [place] [id number] [address] [place] [address] Feb, Exposure to pertussis Z20.81 8 [place] [address] [address] Jan, [place] [address] [address] Jan, Chronic migraine G43.709 and Anxiety F41.9 [place] [address] [address] December, Anxiety F41.9 [place] [address] [place] [id number] [place] [address] Nov, Chronic migraine G43.709 ; S easonal allergic rhinitis, unspecified allergic rhinitis trigger J30.2 ; Vitamin D deficiency E55.9 ; Nocturnal dyspnea R06.00 ; Daytime hypersomnia G47.19 and Anxiety F41.9 [place] [address] [address] Nov, Chronic migraine G43.709 [place] [address] [place] [id number] [address] [place] [address] Oct, [place] [address] [address] Sep, Carpal tunnel syndrome, bila teral G56.03 [place] [address] [place] [id number] [address] [place] [address] Sep, Chronic migraine G43.709 [place] [address] [place] [id number] [address] [place] [address] Aug, [place] [address] [address] Jul, Seasonal allergic rhinitis, unspecified allergic rhinitis trigger J30.2 [place] [address] [place] [id number] [address] [place] [address] Jul, Seasonal allergic rhinitis, unspecified allergic rhinitis trigger J30.2 [place] [address] [place] [id number] [address] [place] [address] Jul, Chronic migraine G43.709 [facility] [address] [facility] [id number] [address] [place] [address] Jun, [facility] [address] [id number] [address] [id number] May, Dental caries K02.9 [place] [address] [facility] [id number] [address] [place] [address] May, Chronic migraine G43.709 [place] [address] [facility] [id number] [address] [place] [address] Apr, Chronic migraine G43.709 ; I yvette deficiency anemia, unspecified iron deficiency anemia type D50.9 ; Perimenopausal N95.1 and Vitamin D deficiency E55.9 [place] [address] [facility] [id number] [address] [place] [address] Mar, [place] [address] [facility] [id number] [address] [place] [address] Mar, Seasonal allergic rhinitis, unspecified allergic rhinitis trigger J30.2 [place] [address] [place] [id number] [address] [place] [address] Mar, Chronic migraine G43.709 [place] [address] [facility] [id number] [address] [place] [address] Mar, [place] [address] [facility] [id number] [address] [place] [address] Mar, Chronic migraine G43.709 ; I rregular menses N92.6 ; Iron deficiency anemia, unspecified iron deficiency anemia type D50.9 and General medical exam Z00.00 [place] [address] [facility] [id number] [address] [place] [address] Mar, Chronic migraine G43.709 ; I yvette deficiency anemia, unspecified iron deficiency anemia type D50.9 ; Irregular menses N92.6 and General medical exam Z00.00 [facility] [address] [id number] [address] [place] [address] [id number] Feb, Dental examination Z01.20 [facility] [address] [id number] [address] [place] [address] Feb, Chronic tension-type headach e, 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 and Seasonal allergic rhinitis, unspecified allergic rhinitis trigger J30.2 [facility] [address] [id number] [address] [place] [address] Feb, [facility] [address] [id number] [address] [place] [address] Jan, Seasonal allergic rhinitis, unspecified allergic rhinitis trigger J30.2 [facility] [address] [id number] [address] [place] [address] December, Chronic tension-type headach e, 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 [facility] [address] [id number] [address] [place] [address] [phone] December, Dental examination Z01.20 [facility] [address] [id number] [address] [place] [address] December, [facility] [address] [id number] [address] [place] [address] Oct, [facility] [address] [id number] [address] [place] [address] Oct, [facility] [address] [id number] [address] [place] [address] Oct, Sore throat J02.9 and Season al allergic rhinitis, unspecified allergic rhinitis trigger J30.2 [facility] [address] [id number] [address] [place] [address] Oct, [facility] [address] [facility] [id number] [address] [place] [address] Sep, [facility] [address] [facility] [id number] [address] [place] [address] Aug, Menstrual periods irregular N92.6 ; Chronic tension-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, 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 ; Acute upper respiratory infection, unspecified J06.9 and Other viral agents as the cause of diseases classified elsewhere B97.89 [facility] [address] [id number] [address] [place] [address] Jul, [facility] [address] [id number] [address] [place] [address] Jul, [facility] [address] [id number] [address] [place] [address] Jul, Migraine without aura and wi thout status migrainosus, not intractable G43.009 [facility] [address] [id number] [address] [place] [address] Jun, [facility] [address] [facility] [id number] [address] [place] [address] May, Migraine without aura and wi thout status migrainosus, not intractable G43.009 [facility] [address] [id number] [address] [place] [address] May, [facility] [address] [id number] [address] [place] [address] May, [facility] [address] [id number] [address] [place] [address] [id number] Mar, Dental examination Z01.20 [facility] [address] [id number] [address] [place] [address] Mar, [facility] [address] [facility] [id number] [address] [place] [address] Jan, Onychomycosis B35.1 [facility] [address] [id number] [address] [place] [address] Jan, [facility] [address] [facility] [id number] [address] [place] [address] December, Dental caries K02.9 [facility] [address] [id number] [address] [place] [address] Nov, Dental examination Z01.20 [facility] [address] [facility] [id number] [address] [place] [address] Oct, Dental examination Z01.20 [facility] [address] [id number] [address] [place] [address] Oct, [facility] [address] [id number] [address] [place] [address] Oct, Migraine G43.909 [facility] [address] [id number] [address] [place] [address] Sep, Onychomycosis B35.1 [facility] [address] [id number] [address] [place] [address] Sep, [facility] [address] [facility] [id number] [address] [place] [address] Aug, [facility] [address] [id number] [address] [place] [address] Jul, [facility] [address] [place] [id number] [address] [place] [address] Apr, [facility] [address] [facility] [id number] [address] [place] [address] Apr, Right anterior knee pain 719 .46 [facility] [address] [facility] [id number] [address] [place] [address] Mar, Tendonitis 726.90 ; HTN (hyp ertension) 401.9 ; Tremors of nervous system 781.0 and Anxiety 300.00 [facility] [address] [place] [id number] [address] [place] [address] Mar, Thrush 112.0 [facility] [address] [place] [id number] [address] [place] [address] Feb, [facility] [address] [place] [id number] [address] [place] [address] Feb, Tremors of nervous system 78 1.0 and Carpal tunnel syndrome 354.0 [facility] [address] [id number] [address] [place] [address] Jan, Anxiety 300.00 ; Tremors of nervous system 781.0 and Tendonitis 726.90 [facility] [address] [id number] [address] [place] [address] Jan, Anxiety 300.00 ; Tremors of nervous system 781.0 and Tendonitis 726.90 [facility] [address] [id number] [address] [place] [address] Jan, Sinusitis 473.9 [facility] [address] [id number] [address] [place] [address] December, [facility] [address] [id number] [address] [place] [address] December, [facility] [address] [id number] [address] [place] [address] December, [facility] [address] [id number] [address] [place] [address] December, [facility] [address] [facility] [id number] [address] [place] [address] December, [facility] [address] [id number] [address] [place] [address] Nov, [facility] [address] [id number] [address] [place] [address] Nov, [facility] [address] [id number] [address] [place] [address] Sep, [facility] [address] [facility] [id number] [address] [place] [address] Sep, [facility] [address] [facility] [id number] [address] [place] [address] Sep, [facility] [address] [id number] [address] [place] [address], [place] [address] Sep, [facility] [address] [id number] [address] [place] [address], [place] [address] Jul, [facility] [address] [id number] [address] [place] [address], [place] [address] Jul, [facility] [address] [id number] [address] [place] [address], [place] [address] Jul, [facility] [address] [id number] [address] [place] [address], [place] [address] Jul, [facility] [address] [id number] [address] [place] [address], [place] [address] Jul, [facility] [address] [id number] [address] [place] [address], [place] [address] Jul, [facility] [address] [id number] [address] [place] [address], [place] [address] Jul, [facility] [address] [id number] [address] [place] [address], [place] [address] Jul, [facility] [address] [id number] [address] [place] [address], [place] [address] Jul, [facility] [address] [id number] [address] [place] [address], [place] [address] Jul, [facility] [address] [id number] [address] [place] [address], [place] [address] Jun, [facility] [address] [id number] [address] [place] [address], [place] [address] Jun, [facility] [address] [id number] [address] [place] [address], [place] [address] Jun, [facility] [address] [id number] [address] [place] [address], [place] [address] Jun, [facility] [address] [id number] [address] [place] [address], [place] [address] May, [facility] [address] [id number] [address] [place] [address], [place] [address] 28 May, 2014 [facility] [address] [id number] [address] [place] [address], [place] [address] 14 May, 2014 [facility] [address] [id number] [address] [place] [address], [place] [address] 14 May, 2014 [facility] [address] [id number] [address] [place] [address], [place] [address] 17 Apr, 2013 [facility] [address] [id number] [address] [place] [address], [place] [address] 17 Apr, 2014 [facility] [address] [id number] [address] [place] [address], [place] [address] 17 Apr, 2014 [facility] [address] [id number] [address] [place] [address], [place] [address] 17 Apr, 2014 [facility] [address] [id number] [address] [place] [address], [place] [address] 16 Apr, 2014 [facility] [address] [id number] [address] [place] [address], [place] [address] 16 Apr, 2014 [facility] [address] [id number] [address] [place] [address], [place] [address] 03 Apr, 2014 [facility] [address] [id number] [address] [place] [address], [place] [address] Apr, [facility] [address] [id number] [address] [place] [address], [place] [address] Mar, [facility] [address] [id number] [address] [place] [address], [place] [address] Mar, [facility] [address] [id number] [address] [place] [address], [place] [address] Feb, [facility] [address] [id number] [address] [place] [address], [place] [address] Feb, [facility] [address] [id number] [facility] [place] [address] Feb, [facility] [address] [id number] [address] [place] [address], [place] [address] Feb, [facility] [address] [id number] [address] [place] [address], [place] [address] Jan, [facility] [address] [id number] [address] [place] [address], [place] [address] Jan, [facility] [address] [id number] [address] [place] [address], [place] [address] Jan, [facility] [address] [id number] [address] [place] [address], [place] [address] Jan, [facility] [address] [id number] [address] [place] [address], [place] [address] Jan, [facility] [address] [id number] [address] [place] [address], [place] [address] Jan, [facility] [address] [id number] [address] [place] [address], [place] [address] December, [facility] [address] [id number] [address] [place] [address], [place] [address] December, [facility] [address] [id number] [address] [place] [address], [place] [address] December, [facility] [address] [id number] [address] [place] [address], [place] [address] December, [facility] [address] [id number] [address] [place] [address], [place] [address] December, [facility] [address] [id number] [address] [place] [address], [place] [address] Nov, [facility] [address] [id number] [address] [place] [address], [place] [address] Nov, [facility] [address] [id number] [address] [place] [address], [place] [address] Nov, [facility] [address] [id number] [address] [place] [address], [place] [address] Nov, [facility] [address] [id number] [address] [place] [address], [place] [address] Nov, [facility] [address] [id number] [address] [place] [address], [place] [address] Nov, [facility] [address] [id number] [address] [place] [address], [place] [address] Oct, [facility] [address] [id number] [address] [place] [address], [place] [address] Oct, [facility] [address] [id number] [address] [place] [address], [place] [address] Oct, [facility] [address] [id number] [address] [place] [address], [place] [address] Oct, [facility] [address] [id number] [address] [place] [address], [place] [address] 14 Sep, 2013 [facility] [address] [id number] [address] [place] [address], [place] [address] 14 Sep, 2013 [facility] [address] [id number] [address] [place] [address], [place] [address] 10 Sep, 2013 [facility] [address] [id number] [address] [place] [address], [place] [address] 10 Sep, 2013 [facility] [address] [id number] [address] [place] [address], [place] [address] 07 Sep, 2013 [facility] [address] [id number] [address] [place] [address], [place] [address] 06 Sep, 2013 [facility] [address] [id number] [address] [place] [address], [place] [address] 06 Sep, 2013 [facility] [address] [id number] [address] [place] [address], [place] [address] 05 Sep, 2013 [facility] [address] [id number] [address] [place] [address], [place] [address] 05 Sep, 2013 [facility] [address] [id number] [address] [place] [address], [place] [address] Sep, [facility] [address] [id number] [address] [place] [address], [place] [address] Sep, [facility] [address] [id number] [address] [place] [address], [place] [address] Sep, [facility] [address] [id number] [address] [place] [address], [place] [address] Sep, [facility] [address] [id number] [address] [place] [address], [place] [address] Aug, [facility] [address] [id number] [address] [place] [address], [place] [address] Aug, [facility] [address] [id number] [address] [place] [address], [place] [address] Jul, [facility] [address] [id number] [address] [place] [address], [place] [address] Jul, [facility] [address] [id number] [address] [place] [address], [place] [address] Jun, [facility] [address] [id number] [address] [place] [address], [place] [address] Jun, [facility] [address] [id number] [address] [place] [address], [place] [address] May, [facility] [address] [id number] [address] [place] [address], [place] [address] Apr, [facility] [address] [id number] [address] [place] [address], [place] [address] Mar, [facility] [address] [id number] [address] [place] [address], [place] [address] Jan, [facility] [address] [id number] [address] [place] [address], [place] [address] December, [facility] [address] [id number] [address] [place] [address], [place] [id number] December, [facility] [address] [id number] [address] [place] [address], [place] [id number] Oct, [facility] [address] [id number] [address] [place] [address], [place] [address] Oct, [facility] [address] [id number] [address] [place] [address], [place] [address] Sep, [facility] [address] [id number] [address] [place] [address], [place] [address] Aug, [facility] [address] [id number] [address] [place] [address], [place] [id number] Aug, [facility] [address] [id number] [address] [place] [address], [place] [address] Jul, [facility] [address] [id number] [address] [place] [address], [place] [address] Jul, [facility] [address] [id number] [address] [place] [address], [place] [id number] Mar, [facility] [address] [id number] [address] [place] [address], [place] [address] Mar, [facility] [address] [id number] [address] [place] [address], [place] [id number] Feb, [facility] [address] [id number] [address] [place] [address], [place] [id number] Feb, [facility] [address] [id number] [address] [place] [address], [place] [id number] Feb, [facility] [address] [id number] [address] [place] [address], [place] [id number] Jan, [facility] [address] [id number] [address] [place] [address], [place] [address] Nov, [facility] [address] [id number] [address] [place] [address], [place] [id number] 17 Sep, 2011 [facility] [address] [id number] [address] [place] [address], [place] [id number] 15 Sep, 2011 [facility] [address] [id number] [address] [place] [address], [place] [id number] 10 Sep, 2011 [facility] [address] [id number] [address] [place] [address], [place] [id number] Aug, [facility] [address] [id number] [address] [place] [address], [place] [id number] Aug, [facility] [address] [id number] [address] [place] [address], [place] [id number] Aug, [facility] [address] [id number] [address] [place] [address], [place] [id number] Jun, [facility] [address] [id number] [address] [place] [address], [place] [id number] Jun, [facility] [address] [id number] [address] [place] [address], [place] [id number] 16 Jun, 2011 [facility] [address] [address] [id number] [address] [place] [address], [place] [id number] Jun, [facility] [address] [id number] [address] [place] [address], [place] [id number] May, [facility] [address] [id number] [address] [place] [address], [place] [id number] May, [facility] [address] [id number] [address] [place] [address], [place] [id number] 18 May, 2011 [facility] [address] [id number] [address] [place] [address], [place] [id number] 14 May, 2011 [facility] [address] [id number] [address] [place] [address], [place] [id number] Jun, [facility] [address] [id number] [address] [place] [address], [place] [id number] December, [facility] [address] [facility] [id number] [address] [place] [address] May, IMMUNIZATIONS No Known Immunizations SOCIAL HISTORY Never Assessed REASON FOR VISIT PLAN OF CARE VITAL SIGNS Height 64 in 2014-07-31 Weight 135 lbs 2014-07-31 Temperature 98.2 degrees Fahrenheit 2014-07-31 Heart Rate 100 bpm 2014-07-31 Respiratory Rate 18 2014-07-31 Blood pressure systolic 118 mmHg 2014-07-31 Blood pressure diastolic 62 mmHg 2014-07-31 MEDICATIONS No Known Medications RESULTS No Results PROCEDURES Procedure Date Ordered Result Body Site THER/PROPH/DIAG INJ, SC/IM Jul 31, 2014 INJ METHYLPRDNISOLONE ACTAT 80 MG Jul 31, 2014 INSTRUCTIONS MEDICATIONS ADMINISTERED No Known [...]
--- OUTSIDE RECORDS SUMMARY | 2020-03-17 19:16 | XMS REPORT ---
Author Author Ann MCHUGH Organization [facility] Address [address] [place] [address] Care Team Providers Care Sanitation Superintendent Name Role Phone RAFAELA MCHUGH Unavailable PROBLEMS Type Condition ICD9-CM Code ANI44-KI Code Onset Dates Condition S tatus SNOMED Code Problem Perimenopausal N95.1 Active 90668 [id number] Problem Seasonal allergic rhinitis, unspecified allergic rhinitis trigger J30.2 Active 072867337 Problem Chronic migraine G43.709 Active 377 41927 Problem Anxiety F41.9 Active 99070919 Problem Vitamin D deficiency E55.9 Active 98783540 Problem Essential hypertension I10 Active 45130835 Problem Iron deficiency anemia, unspecified iron deficiency an emia type D50.9 Active 06741424 Problem Carpal tunnel syndrome, bilateral G56.03 Active [id number] Problem Daytime hypersomnia G47.19 Active 28041451437885 Problem Nocturnal dyspnea R06.00 Active 24 2302964 ALLERGIES No Information ENCOUNTERS Encounter Location Date Diagnosis [place] [address] [place] [id number] [place] [address] Apr, Chronic migraine G43.709 ; E ssential hypertension I10 ; Iron deficiency anemia, unspecified iron deficiency anemia type D50.9 and Long-term use of high-risk medication Z79.899 [place] [address] [facility] [id number] [address] [place] [address] Feb, Seasonal allergic rhinitis, unspecified allergic rhinitis trigger J30.2 and Chronic migraine G43.709 [place] [address] [facility] [id number] [address] [place] [address] Feb, Anxiety F41.9 [facility] [address] [place] [id number] [address] [place] [address] Feb, Exposure to pertussis Z20.81 8 [place] [address] [place] [id number] [address] [place] [address] Jan, [place] [address] [address] Jan, Chronic migraine G43.709 and Anxiety F41.9 [place] [address] [address] December, Anxiety F41.9 [place] [address] [place] [id number] [place] [address] Nov, Chronic migraine G43.709 ; S easonal allergic rhinitis, unspecified allergic rhinitis trigger J30.2 ; Vitamin D deficiency E55.9 ; Nocturnal dyspnea R06.00 ; Daytime hypersomnia G47.19 and Anxiety F41.9 [place] [id number] [place] [address] Nov, Chronic migraine G43.709 [place] [address] [place] [id number] [address] [place] [address] Oct, [place] [address] [address] Sep, Carpal tunnel syndrome, bila teral G56.03 [place] [address] [place] [id number] [address] [place] [address] Sep, Chronic migraine G43.709 [place] [address] [place] [id number] [address] [place] [address] Aug, [place] [address] [place] [id number] [address] [place] [address] Jul, Seasonal allergic rhinitis, unspecified allergic rhinitis trigger J30.2 [place] [address] [place] [id number] [address] [place] [address] Jul, Seasonal allergic rhinitis, unspecified allergic rhinitis trigger J30.2 [place] [address] [place] [id number] [address] [place] [address] Jul, Chronic migraine G43.709 [facility] [address] [facility] [id number] [address] [place] [address] Jun, [facility] [address] [id number] [address] [place] [id number] May, Dental caries K02.9 [facility] [address] [facility] [id number] [address] [place] [address] May, Chronic migraine G43.709 [facility] [address] [facility] [id number] [address] [place] [address] Apr, Chronic migraine G43.709 ; I yvette deficiency anemia, unspecified iron deficiency anemia type D50.9 ; Perimenopausal N95.1 and Vitamin D deficiency E55.9 [place] [address] [facility] [id number] [address] [place] [address] Mar, [place] [address] [place] [id number] [address] [place] [address] Mar, Seasonal allergic rhinitis, unspecified allergic rhinitis trigger J30.2 [facility] [address] [facility] [id number] [address] [place] [address] Mar, Chronic migraine G43.709 [facility] [address] [facility] [id number] [address] [place] [address] Mar, [facility] [address] [facility] [id number] [address] [place] [address] Mar, Chronic migraine G43.709 ; I rregular menses N92.6 ; Iron deficiency anemia, unspecified iron deficiency anemia type D50.9 and General medical exam Z00.00 [facility] [address] [facility] [id number] [address] [place] [address] Mar, Chronic migraine G43.709 ; I yvette deficiency anemia, unspecified iron deficiency anemia type D50.9 ; Irregular menses N92.6 and General medical exam Z00.00 [facility] [address] [place] [id number] [address] [place] [address] [id number] Feb, Dental examination Z01.20 [facility] [address] [id number] [address] [place] [address] Feb, Chronic tension-type headach e, 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 and Seasonal allergic rhinitis, unspecified allergic rhinitis trigger J30.2 [facility] [address] [id number] [address] [place] [address] Feb, [facility] [address] [id number] [address] [place] [address] Jan, Seasonal allergic rhinitis, unspecified allergic rhinitis trigger J30.2 [facility] [address] [facility] [id number] [address] [place] [address] December, Chronic tension-type headach e, 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 [facility] [address] [id number] [address] [place] [address] [id number] December, Dental examination Z01.20 [facility] [address] [id number] [address] [place] [address] December, [facility] [address] [facility] [id number] [address] [place] [address] Oct, [facility] [address] [id number] [address] [place] [address] Oct, [facility] [address] [facility] [id number] [address] [place] [address] Oct, Sore throat J02.9 and Season al allergic rhinitis, unspecified allergic rhinitis trigger J30.2 [facility] [address] [id number] [address] [place] [address] Oct, [facility] [address] [facility] [id number] [address] [place] [address] Sep, [facility] [address] [facility] [id number] [address] [place] [address] Aug, Menstrual periods irregular N92.6 ; Chronic tension-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, 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 ; Acute upper respiratory infection, unspecified J06.9 and Other viral agents as the cause of diseases classified elsewhere B97.89 [facility] [address] [id number] [address] [place] [address] Jul, [facility] [address] [id number] [address] [place] [address] Jul, [facility] [address] [id number] [address] [place] [address] Jul, Migraine without aura and wi thout status migrainosus, not intractable G43.009 [facility] [address] [id number] [address] [place] [address] Jun, [facility] [address] [facility] [id number] [address] [place] [address] May, Migraine without aura and wi thout status migrainosus, not intractable G43.009 [facility] [address] [id number] [address] [place] [address] May, [facility] [address] [id number] [address] [place] [address] May, [facility] [address] [id number] [address] [place] [address] [id number] Mar, Dental examination Z01.20 [facility] [address] [id number] [address] [place] [address] Mar, [facility] [address] [facility] [id number] [address] [place] [address] Jan, Onychomycosis B35.1 [facility] [address] [id number] [address] [place] [address] Jan, [facility] [address] [facility] [id number] [address] [place] [address] December, Dental caries K02.9 [facility] [address] [id number] [address] [place] [address] Nov, Dental examination Z01.20 [facility] [address] [id number] [address] [place] [address] Oct, Dental examination Z01.20 [facility] [address] [id number] [address] [place] [address] Oct, [facility] [address] [id number] [address] [place] [address] Oct, Migraine G43.909 [facility] [address] [id number] [address] [place] [address] Sep, Onychomycosis B35.1 [facility] [address] [id number] [address] [place] [address] Sep, [facility] [address] [facility] [id number] [address] [place] [address] Aug, [facility] [address] [facility] [id number] [address] [place] [address] Jul, [facility] [address] [id number] [address] [place] [address] Apr, [facility] [address] [facility] [id number] [address] [place] [address] Apr, Right anterior knee pain 719 .46 [facility] [address] [facility] [id number] [address] [place] [address] Mar, Tendonitis 726.90 ; HTN (hyp ertension) 401.9 ; Tremors of nervous system 781.0 and Anxiety 300.00 [facility] [address] [id number] [address] [place] [address] Mar, Thrush 112.0 [facility] [address] [facility] [id number] [address] [place] [address] Feb, [facility] [address] [facility] [id number] [address] [place] [address] Feb, Tremors of nervous system 78 1.0 and Carpal tunnel syndrome 354.0 [facility] [address] [id number] [address] [place] [address] Jan, Anxiety 300.00 ; Tremors of nervous system 781.0 and Tendonitis 726.90 [facility] [address] [id number] [address] [place] [address] Jan, Anxiety 300.00 ; Tremors of nervous system 781.0 and Tendonitis 726.90 [facility] [address] [id number] [address] [place] [address] Jan, Sinusitis 473.9 [facility] [address] [id number] [address] [place] [address] December, [facility] [address] [id number] [address] [place] [address] December, [facility] [address] [id number] [address] [place] [address] December, [facility] [address] [id number] [address] [place] [address] December, [facility] [address] [id number] [address] [place] [address] December, [facility] [address] [facility] [id number] [address] [place] [address] Nov, [facility] [address] [id number] [address] [place] [address] Nov, [facility] [address] [id number] [address] [place] [address] Sep, [facility] [address] [id number] [address] [place] [address] Sep, [facility] [address] [id number] [address] [place] [address] Sep, [facility] [address] [id number] [address] [place] [address] Sep, [facility] [address] [id number] [address] [place] [address], [place] [address] Jul, [facility] [address] [id number] [address] [place] [address], [place] [address] Jul, [facility] [address] [id number] [address] [place] [address], [place] [address] Jul, [facility] [address] [id number] [address] [place] [address], [place] [address] Jul, [facility] [address] [id number] [address] [place] [address], [place] [address] Jul, [facility] [address] [id number] [address] [place] [address], [place] [address] Jul, [facility] [address] [id number] [address] [place] [address], [place] [address] Jul, [facility] [address] [id number] [address] [place] [address], [place] [address] Jul, [facility] [address] [id number] [address] [place] [address], [place] [address] Jul, [facility] [address] [id number] [address] [place] [address], [place] [address] Jul, [facility] [address] [id number] [address] [place] [address], [place] [address] Jun, [facility] [address] [id number] [address] [place] [address], [place] [address] Jun, [facility] [address] [id number] [address] [place] [address], [place] [address] Jun, [facility] [address] [id number] [address] [place] [address], [place] [address] Jun, [facility] [address] [id number] [address] [place] [address], [place] [address] May, [facility] [address] [id number] [address] [place] [address], [place] [address] 28 May, 2014 [facility] [address] [id number] [address] [place] [address], [place] [address] 14 May, 2014 [facility] [address] [id number] [address] [place] [address], [place] [address] 14 May, 2014 [facility] [address] [id number] [address] [place] [address], [place] [address] 17 Apr, 2013 [facility] [address] [id number] [address] [place] [address], [place] [address] 17 Apr, 2013 [facility] [address] [id number] [address] [place] [address], [place] [address] 17 Apr, 2013 [facility] [address] [id number] [address] [place] [address], [place] [address] 17 Apr, 2013 [facility] [address] [id number] [address] [place] [address], [place] [address] 16 Apr, 2013 [facility] [address] [id number] [address] [place] [address], [place] [address] 16 Apr, 2013 [facility] [address] [id number] [address] [place] [address], [place] [address] 03 Apr, 2014 [facility] [address] [id number] [address] [place] [address], [place] [address] 03 Apr, 2014 [facility] [address] [id number] [address] [place] [address], [place] [address] Mar, [facility] [address] [id number] [address] [place] [address], [place] [address] Mar, [facility] [address] [id number] [address] [place] [address], [place] [address] Feb, [facility] [address] [id number] [address] [place] [address], [place] [address] Feb, [facility] [address] [id number] [address] [place] [address], [place] [address] Feb, [facility] [address] [id number] [facility] [place] [address] Feb, [facility] [address] [id number] [facility] [place] [address] Jan, [facility] [address] [id number] [address] [place] [address], [place] [address] Jan, [facility] [address] [id number] [address] [place] [address], [place] [address] Jan, [facility] [address] [id number] [address] [place] [address], [place] [address] Jan, [facility] [address] [id number] [address] [place] [address], [place] [address] Jan, [facility] [address] [id number] [address] [place] [address], [place] [address] Jan, [facility] [address] [id number] [address] [place] [address], [place] [address] December, [facility] [address] [id number] [address] [place] [address], [place] [address] December, [facility] [address] [id number] [address] [place] [address], [place] [address] December, [facility] [address] [id number] [address] [place] [address], [place] [address] December, [facility] [address] [id number] [address] [place] [address], [place] [address] December, [facility] [address] [id number] [address] [place] [address], [place] [address] Nov, [facility] [address] [id number] [address] [place] [address], [place] [address] Nov, [facility] [address] [id number] [address] [place] [address], [place] [address] Nov, [facility] [address] [id number] [address] [place] [address], [place] [address] 23 Nov, 2013 [facility] [address] [id number] [address] [place] [address], [place] [address] Nov, [facility] [address] [id number] [address] [place] [address], [place] [address] Nov, [facility] [address] [id number] [address] [place] [address], [place] [address] Oct, [facility] [address] [id number] [address] [place] [address], [place] [address] Oct, [facility] [address] [id number] [address] [place] [address], [place] [address] Oct, [facility] [address] [id number] [address] [place] [address], [place] [address] Oct, [facility] [address] [id number] [address] [place] [address], [place] [address] 14 Sep, 2013 [facility] [address] [id number] [address] [place] [address], [place] [address] 14 Sep, 2013 [facility] [address] [id number] [address] [place] [address], [place] [address] 10 Sep, 2013 [facility] [address] [id number] [address] [place] [address], [place] [address] 10 Sep, 2013 [facility] [address] [id number] [address] [place] [address], [place] [address] 07 Sep, 2013 [facility] [address] [id number] [address] [place] [address], [place] [address] 06 Sep, 2013 [facility] [address] [id number] [address] [place] [address], [place] [address] 06 Sep, 2013 [facility] [address] [id number] [address] [place] [address], [place] [address] 05 Sep, 2013 [facility] [address] [id number] [address] [place] [address], [place] [address] Sep, [facility] [address] [id number] [address] [place] [address], [place] [address] Sep, [facility] [address] [id number] [address] [place] [address], [place] [address] Sep, [facility] [address] [id number] [address] [place] [address], [place] [address] Sep, [facility] [address] [id number] [address] [place] [address], [place] [address] Sep, [facility] [address] [id number] [address] [place] [address], [place] [address] Aug, [facility] [address] [id number] [address] [place] [address], [place] [address] Aug, [facility] [address] [id number] [address] [place] [address], [place] [address] Jul, [facility] [address] [id number] [address] [place] [address], [place] [address] Jul, [facility] [address] [id number] [address] [place] [address], [place] [address] Jun, [facility] [address] [id number] [address] [place] [address], [place] [address] Jun, [facility] [address] [id number] [address] [place] [address], [place] [address] May, [facility] [address] [id number] [address] [place] [address], [place] [address] Apr, [facility] [address] [id number] [address] [place] [address], [place] [address] Mar, [facility] [address] [id number] [address] [place] [address], [place] [address] Jan, [facility] [address] [id number] [address] [place] [address], [place] [address] December, [facility] [address] [id number] [address] [place] [address], [place] [address] December, [facility] [address] [id number] [address] [place] [address], [place] [address] Oct, [facility] [address] [id number] [address] [place] [address], [place] [address] Oct, [facility] [address] [id number] [address] [place] [address], [place] [address] Sep, [facility] [address] [id number] [address] [place] [address], [place] [address] Aug, [facility] [address] [id number] [address] [place] [address], [place] [address] Aug, [facility] [address] [id number] [address] [place] [address], [place] [address] Jul, [facility] [address] [id number] [address] [place] [address], [place] [address] Jul, [facility] [address] [id number] [address] [place] [address], [place] [address] Mar, [facility] [address] [id number] [address] [place] [address], [place] [address] Mar, [facility] [address] [id number] [address] [place] [address], [place] [address] Feb, [facility] [address] [id number] [address] [place] [address], [place] [address] Feb, [facility] [address] [id number] [address] [place] [address], [place] [address] Feb, [facility] [address] [id number] [address] [place] [address], [place] [address] Jan, [facility] [address] [id number] [address] [place] [address], [place] [address] Nov, [facility] [address] [id number] [address] [place] [address], [place] [address] 17 Sep, 2011 [facility] [address] [id number] [address] [place] [address], [place] [address] 15 Sep, 2011 [facility] [address] [id number] [address] [place] [address], [place] [address] Sep, [facility] [address] [id number] [address] [place] [address], [place] [address] Aug, [facility] [address] [id number] [address] [place] [address], [place] [address] Aug, [facility] [address] [id number] [address] [place] [address], [place] [address] Aug, [facility] [address] [id number] [address] [place] [address], [place] [address] Jun, [facility] [address] [id number] [address] [place] [address], [place] [address] Jun, [facility] [address] [id number] [address] [place] [address], [place] [address] Jun, [facility] [address] [id number] [address] [place] [address], [place] [address] Jun, [facility] [address] [id number] [address] [place] [address], [place] [address] May, [facility] [address] [id number] [address] [place] [address], [place] [address] May, [facility] [address] [id number] [address] [place] [id number] May, [facility] [address] [id number] [address] [place] [address], [place] [address] May, [facility] [address] [id number] [address] [place] [address], [place] [address] Jun, [facility] [address] [id number] [address] [place] [address], [place] [address] December, [facility] [address] [id number] [facility] [place] [address] 29 May, 2009 IMMUNIZATIONS No Known Immunizations [...]
--- OUTSIDE RECORDS SUMMARY | 2020-03-17 19:16 | XMS REPORT ---
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 Role Phone RAFAELA MCHUGH Unavailable PROBLEMS Type Condition ICD9-CM Code XTE09-NU Code Onset Dates Condition S tatus SNOMED Code Problem Perimenopausal N95.1 Active 83840 [id number] Problem Seasonal allergic rhinitis, unspecified allergic rhinitis trigger J30.2 Active 984393307 Problem Chronic migraine G43.709 Active 377 34579 Problem Anxiety F41.9 Active 02526008 Problem Vitamin D deficiency E55.9 Active 69345092 Problem Essential hypertension I10 Active 75769338 Problem Iron deficiency anemia, unspecified iron deficiency an emia type D50.9 Active 95903125 Problem Carpal tunnel syndrome, bilateral G56.03 Active [id number] Problem Daytime hypersomnia G47.19 Active [id number] Problem Nocturnal dyspnea R06.00 Active 24 7627278 ALLERGIES No Information ENCOUNTERS Encounter Location Date Diagnosis [place] [address] [place] [id number] [place] [address] Apr, Chronic migraine G43.709 ; E ssential hypertension I10 ; Iron deficiency anemia, unspecified iron deficiency anemia type D50.9 and Long-term use of high-risk medication Z79.899 [place] [address] [facility] [id number] [address] [place] [address] Feb, Seasonal allergic rhinitis, unspecified allergic rhinitis trigger J30.2 and Chronic migraine G43.709 [place] [address] [facility] [id number] [address] [place] [address] Feb, Anxiety F41.9 [facility] [address] [place] [id number] [address] [place] [address] Feb, Exposure to pertussis Z20.81 8 [place] [address] [place] [id number] [place] [address] Jan, [place] [address] [address] Jan, Chronic migraine G43.709 and Anxiety F41.9 [place] [address] [address] December, Anxiety F41.9 [place] [address] [place] [id number] [place] [address] Nov, Chronic migraine G43.709 ; S easonal allergic rhinitis, unspecified allergic rhinitis trigger J30.2 ; Vitamin D deficiency E55.9 ; Nocturnal dyspnea R06.00 ; Daytime hypersomnia G47.19 and Anxiety F41.9 [place] [id number] [place] [address] Nov, Chronic migraine G43.709 [place] [address] [place] [id number] [address] [place] [address] Oct, [place] [address] [address] Sep, Carpal tunnel syndrome, bila teral G56.03 [place] [address] [place] [id number] [address] [place] [address] Sep, Chronic migraine G43.709 [place] [address] [place] [id number] [address] [place] [address] Aug, [place] [address] [place] [id number] [address] [place] [phone] Jul, Seasonal allergic rhinitis, unspecified allergic rhinitis trigger J30.2 [place] [address] [place] [id number] [address] [place] [address] Jul, Seasonal allergic rhinitis, unspecified allergic rhinitis trigger J30.2 [place] [address] [place] [id number] [address] [place] [address] Jul, Chronic migraine G43.709 [facility] [address] [facility] [id number] [address] [place] [address] Jun, [facility] [address] [id number] [address] [place] [id number] May, Dental caries K02.9 [facility] [address] [facility] [id number] [address] [place] [address] May, Chronic migraine G43.709 [facility] [address] [facility] [id number] [address] [place] [address] Apr, Chronic migraine G43.709 ; I yvette deficiency anemia, unspecified iron deficiency anemia type D50.9 ; Perimenopausal N95.1 and Vitamin D deficiency E55.9 [place] [address] [facility] [id number] [address] [place] [address] Mar, [place] [address] [place] [id number] [address] [place] [address] Mar, Seasonal allergic rhinitis, unspecified allergic rhinitis trigger J30.2 [facility] [address] [facility] [id number] [address] [place] [address] Mar, Chronic migraine G43.709 [facility] [address] [facility] [id number] [address] [place] [address] Mar, [facility] [address] [facility] [id number] [address] [place] [address] Mar, Chronic migraine G43.709 ; I rregular menses N92.6 ; Iron deficiency anemia, unspecified iron deficiency anemia type D50.9 and General medical exam Z00.00 [facility] [address] [facility] [id number] [address] [place] [address] Mar, Chronic migraine G43.709 ; I yvette deficiency anemia, unspecified iron deficiency anemia type D50.9 ; Irregular menses N92.6 and General medical exam Z00.00 [facility] [address] [place] [id number] [address] [place] [id number] Feb, Dental examination Z01.20 [facility] [address] [id number] [address] [place] [address] Feb, Chronic tension-type headach e, 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 and Seasonal allergic rhinitis, unspecified allergic rhinitis trigger J30.2 [facility] [address] [id number] [address] [place] [address] Feb, [facility] [address] [id number] [address] [place] [phone] Jan, Seasonal allergic rhinitis, unspecified allergic rhinitis trigger J30.2 [facility] [address] [facility] [id number] [address] [place] [address] December, Chronic tension-type headach e, 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 [facility] [address] [id number] [address] [place] [address] [id number] December, Dental examination Z01.20 [facility] [address] [id number] [address] [place] [phone] December, [facility] [address] [facility] [id number] [address] [place] [address] Oct, [facility] [address] [id number] [address] [place] [phone] Oct, [facility] [address] [facility] [id number] [address] [place] [phone] Oct, Sore throat J02.9 and Season al allergic rhinitis, unspecified allergic rhinitis trigger J30.2 [facility] [address] [id number] [address] [place] [phone] Oct, [facility] [address] [facility] [id number] [address] [place] [phone] Sep, [facility] [address] [facility] [id number] [address] [place] [address] Aug, Menstrual periods irregular N92.6 ; Chronic tension-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, 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 ; Acute upper respiratory infection, unspecified J06.9 and Other viral agents as the cause of diseases classified elsewhere B97.89 [facility] [address] [id number] [address] [place] [phone] Jul, [facility] [address] [id number] [address] [place] [address] Jul, [facility] [address] [id number] [address] [place] [address] Jul, Migraine without aura and wi thout status migrainosus, not intractable G43.009 [facility] [address] [id number] [address] [place] [phone] Jun, [facility] [address] [facility] [id number] [address] [place] [address] May, Migraine without aura and wi thout status migrainosus, not intractable G43.009 [facility] [address] [id number] [address] [place] [address] May, [facility] [address] [id number] [address] [place] [phone] May, [facility] [address] [id number] [address] [place] [address] [id number] Mar, Dental examination Z01.20 [facility] [address] [id number] [address] [place] [phone] Mar, [facility] [address] [facility] [id number] [address] [place] [phone] Jan, Onychomycosis B35.1 [facility] [address] [id number] [address] [place] [phone] Jan, [facility] [address] [facility] [id number] [address] [place] [phone] December, Dental caries K02.9 [facility] [address] [id number] [address] [place] [address] Nov, Dental examination Z01.20 [facility] [address] [id number] [address] [place] [address] Oct, Dental examination Z01.20 [facility] [address] [id number] [address] [place] [phone] Oct, [facility] [address] [id number] [address] [place] [address] Oct, Migraine G43.909 [facility] [address] [id number] [address] [place] [id number] Sep, Onychomycosis B35.1 [facility] [address] [id number] [address] [place] [phone] Sep, [facility] [address] [facility] [id number] [address] [place] [phone] Aug, [facility] [address] [facility] [id number] [address] [place] [phone] Jul, [facility] [address] [id number] [address] [place] [phone] Apr, [facility] [address] [facility] [id number] [address] [place] [phone] Apr, Right anterior knee pain 719 .46 [facility] [address] [facility] [id number] [address] [place] [address] Mar, Tendonitis 726.90 ; HTN (hyp ertension) 401.9 ; Tremors of nervous system 781.0 and Anxiety 300.00 [facility] [address] [id number] [address] [place] [address] Mar, Thrush 112.0 [facility] [address] [facility] [id number] [address] [place] [phone] Feb, [facility] [address] [facility] [id number] [address] [place] [address] Feb, Tremors of nervous system 78 1.0 and Carpal tunnel syndrome 354.0 [facility] [address] [id number] [address] [place] [address] Jan, Anxiety 300.00 ; Tremors of nervous system 781.0 and Tendonitis 726.90 [facility] [address] [id number] [address] [place] [address] Jan, Anxiety 300.00 ; Tremors of nervous system 781.0 and Tendonitis 726.90 [facility] [address] [id number] [address] [place] [phone] Jan, Sinusitis 473.9 [facility] [address] [id number] [address] [place] [phone] December, [facility] [address] [id number] [address] [place] [phone] December, [facility] [address] [id number] [address] [place] [phone] December, [facility] [address] [id number] [address] [place] [phone] December, [facility] [address] [id number] [address] [place] [phone] December, [facility] [address] [facility] [id number] [address] [place] [phone] Nov, [facility] [address] [id number] [address] [place] [phone] Nov, [facility] [address] [id number] [address] [place] [phone] Sep, [facility] [address] [id number] [address] [place] [phone] Sep, [facility] [address] [id number] [address] [place] [phone] Sep, [facility] [address] [id number] [address] [place] [phone] Sep, [facility] [address] [id number] [address] [place] [address], [place] [address] Jul, [facility] [address] [id number] [address] [place] [address], [place] [address] Jul, [facility] [address] [id number] [address] [place] [address], [place] [address] Jul, [facility] [address] [id number] [address] [place] [address], [place] [address] Jul, [facility] [address] [id number] [address] [place] [address], [place] [address] Jul, [facility] [address] [id number] [address] [place] [address], [place] [address] Jul, [facility] [address] [id number] [address] [place] [address], [place] [address] Jul, [facility] [address] [id number] [address] [place] [address], [place] [address] Jul, [facility] [address] [id number] [address] [place] [address], [place] [address] Jul, [facility] [address] [id number] [address] [place] [address], [place] [address] Jul, [facility] [address] [id number] [address] [place] [address], [place] [address] Jun, [facility] [address] [id number] [address] [place] [address], [place] [address] Jun, [facility] [address] [id number] [address] [place] [address], [place] [address] Jun, [facility] [address] [id number] [address] [place] [address], [place] [address] Jun, [facility] [address] [id number] [address] [place] [address], [place] [address] May, [facility] [address] [id number] [address] [place] [address], [place] [address] 28 May, 2014 [facility] [address] [id number] [address] [place] [address], [place] [address] 14 May, 2014 [facility] [address] [id number] [address] [place] [address], [place] [address] 14 May, 2014 [facility] [address] [id number] [address] [place] [address], [place] [address] 17 Apr, 2013 [facility] [address] [id number] [address] [place] [address], [place] [address] 17 Apr, 2013 [facility] [address] [id number] [address] [place] [address], [place] [address] 17 Apr, 2013 [facility] [address] [id number] [address] [place] [address], [place] [address] 17 Apr, 2013 [facility] [address] [id number] [address] [place] [address], [place] [address] 16 Apr, 2013 [facility] [address] [id number] [address] [place] [address], [place] [address] 16 Apr, 2013 [facility] [address] [id number] [address] [place] [address], [place] [address] 03 Apr, 2014 [facility] [address] [id number] [address] [place] [address], [place] [address] 03 Apr, 2014 [facility] [address] [id number] [address] [place] [address], [place] [address] Mar, [facility] [address] [id number] [address] [place] [address], [place] [address] Mar, [facility] [address] [id number] [address] [place] [address], [place] [address] Feb, [facility] [address] [id number] [address] [place] [address], [place] [address] Feb, [facility] [address] [id number] [address] [place] [address], [place] [address] Feb, [facility] [address] [id number] [facility] [place] [address] Feb, [facility] [address] [id number] [facility] [place] [address] Jan, [facility] [address] [id number] [address] [place] [address], [place] [address] Jan, [facility] [address] [id number] [address] [place] [address], [place] [address] Jan, [facility] [address] [id number] [address] [place] [address], [place] [address] Jan, [facility] [address] [id number] [address] [place] [address], [place] [address] Jan, [facility] [address] [id number] [address] [place] [address], [place] [address] Jan, [facility] [address] [id number] [address] [place] [address], [place] [address] December, [facility] [address] [id number] [address] [place] [address], [place] [address] December, [facility] [address] [id number] [address] [place] [address], [place] [address] December, [facility] [address] [id number] [address] [place] [address], [place] [address] December, [facility] [address] [id number] [address] [place] [address], [place] [address] December, [facility] [address] [id number] [address] [place] [address], [place] [address] Nov, [facility] [address] [id number] [address] [place] [address], [place] [address] Nov, [facility] [address] [id number] [address] [place] [address], [place] [address] Nov, [facility] [address] [id number] [address] [place] [address], [place] [address] 23 Nov, 2013 [facility] [address] [id number] [address] [place] [address], [place] [address] Nov, [facility] [address] [id number] [address] [place] [address], [place] [address] Nov, [facility] [address] [id number] [address] [place] [address], [place] [address] Oct, [facility] [address] [id number] [address] [place] [address], [place] [address] Oct, [facility] [address] [id number] [address] [place] [address], [place] [address] Oct, [facility] [address] [id number] [address] [place] [address], [place] [address] Oct, [facility] [address] [id number] [address] [place] [address], [place] [address] 14 Sep, 2013 [facility] [address] [id number] [address] [place] [address], [place] [address] 14 Sep, 2013 [facility] [address] [id number] [address] [place] [address], [place] [address] 10 Sep, 2013 [facility] [address] [id number] [address] [place] [address], [place] [address] 10 Sep, 2013 [facility] [address] [id number] [address] [place] [address], [place] [address] 07 Sep, 2013 [facility] [address] [id number] [address] [place] [address], [place] [address] 06 Sep, 2013 [facility] [address] [id number] [address] [place] [address], [place] [address] 06 Sep, 2013 [facility] [address] [id number] [address] [place] [address], [place] [address] 05 Sep, 2013 [facility] [address] [id number] [address] [place] [address], [place] [address] Sep, [facility] [address] [id number] [address] [place] [address], [place] [address] Sep, [facility] [address] [id number] [address] [place] [address], [place] [address] Sep, [facility] [address] [id number] [address] [place] [address], [place] [address] Sep, [facility] [address] [id number] [address] [place] [address], [place] [address] Sep, [facility] [address] [id number] [address] [place] [address], [place] [address] Aug, [facility] [address] [id number] [address] [place] [address], [place] [address] Aug, [facility] [address] [id number] [address] [place] [address], [place] [address] Jul, [facility] [address] [id number] [address] [place] [address], [place] [address] Jul, [facility] [address] [id number] [address] [place] [address], [place] [address] Jun, [facility] [address] [id number] [address] [place] [address], [place] [address] Jun, [facility] [address] [id number] [address] [place] [address], [place] [address] May, [facility] [address] [id number] [address] [place] [address], [place] [address] Apr, [facility] [address] [id number] [address] [place] [address], [place] [address] Mar, [facility] [address] [id number] [address] [place] [address], [place] [address] Jan, [facility] [address] [id number] [address] [place] [address], [place] [address] December, [facility] [address] [id number] [address] [place] [address], [place] [address] December, [facility] [address] [id number] [address] [place] [address], [place] [address] Oct, [facility] [address] [id number] [address] [place] [address], [place] [address] Oct, [facility] [address] [id number] [address] [place] [address], [place] [address] Sep, [facility] [address] [id number] [address] [place] [address], [place] [address] Aug, [facility] [address] [id number] [address] [place] [address], [place] [address] Aug, [facility] [address] [id number] [address] [place] [address], [place] [address] Jul, [facility] [address] [id number] [address] [place] [address], [place] [address] Jul, [facility] [address] [id number] [address] [place] [address], [place] [address] Mar, [facility] [address] [id number] [address] [place] [address], [place] [address] Mar, [facility] [address] [id number] [address] [place] [address], [place] [address] Feb, [facility] [address] [id number] [address] [place] [address], [place] [address] Feb, [facility] [address] [id number] [address] [place] [address], [place] [address] Feb, [facility] [address] [id number] [address] [place] [address], [place] [address] Jan, [facility] [address] [id number] [address] [place] [address], [place] [address] Nov, [facility] [address] [id number] [address] [place] [address], [place] [address] 17 Sep, 2011 [facility] [address] [id number] [address] [place] [address], [place] [address] 15 Sep, 2011 [facility] [address] [address] [id number] [address] [place] [address], [place] [address] Sep, [facility] [address] [id number] [address] [place] [address], [place] [address] Aug, [facility] [address] [id number] [address] [place] [address], [place] [address] Aug, [facility] [address] [id number] [address] [place] [address], [place] [address] Aug, [facility] [address] [id number] [address] [place] [address], [place] [address] Jun, [facility] [address] [id number] [address] [place] [address], [place] [address] Jun, [facility] [address] [id number] [address] [place] [address], [place] [address] Jun, [facility] [address] [id number] [address] [place] [address], [place] [address] Jun, [facility] [address] [id number] [address] [place] [address], [place] [address] May, [facility] [address] [id number] [address] [place] [address], [place] [address] May, [facility] [address] [id number] [address] [place] [id number] May, [facility] [address] [id number] [address] [place] [address], [place] [address] May, [facility] [address] [id number] [address] [place] [address], [place] [address] Jun, [facility] [address] [id number] [address] [place] [address], [place] [address] December, [facility] [address] [id number] [facility] [place] [address] May, IMMUNIZATIONS No Known Immunizations SOCIAL HISTORY Never Assessed REASON FOR VISIT PLAN OF CARE VITAL SIGNS Height 64 in 2014-08-07 Weight 135.5 lbs 2014-08-07 Temperature 98.1 degrees Fahrenheit 2014-08-07 Heart Rate 80 bpm 2014-08-07 Respiratory Rate 18 2014-08-07 Blood pressure systolic 138 mmHg 2014-08-07 Blood pressure diastolic 102 mmHg 2014-08-07 MEDICATIONS No Known Medications RESULTS No Results [...]
--- OUTSIDE RECORDS SUMMARY | 2020-03-17 19:16 | XMS REPORT ---
Author Author Ann MCHUGH Organization [facility] Address [address] [place] [address] Care Team Providers [facility] [place] Parent Name Role Phone RAFAELA MCHUGH Unavailable PROBLEMS Type Condition ICD9-CM Code XEC36-FI Code Onset Dates Condition S tatus SNOMED Code Problem Perimenopausal N95.1 Active 39362 [id number] Problem Seasonal allergic rhinitis, unspecified allergic rhinitis trigger J30.2 Active 201623087 Problem Chronic migraine G43.709 Active 377 58438 Problem Anxiety F41.9 Active 59001017 Problem Vitamin D deficiency E55.9 Active 31623763 Problem Essential hypertension I10 Active 16817719 Problem Iron deficiency anemia, unspecified iron deficiency an emia type D50.9 Active 90801884 Problem Carpal tunnel syndrome, bilateral G56.03 Active 50130529306308809 Problem Daytime hypersomnia G47.19 Active 42321930259628 Problem Nocturnal dyspnea R06.00 Active 24 9661116 ALLERGIES No Information ENCOUNTERS Encounter Location Date Diagnosis [place] [address] [place] [id number] [address] [place] [address] Apr, Chronic migraine G43.709 ; E ssential hypertension I10 ; Iron deficiency anemia, unspecified iron deficiency anemia type D50.9 and Long-term use of high-risk medication Z79.899 [place] [address] [place] [facility] [place] [id number] [address] [place] [address] Feb, Seasonal allergic rhinitis, unspecified allergic rhinitis trigger J30.2 and Chronic migraine G43.709 [place] [address] [facility] [place] [id number] [address] [place] [address] Feb, Anxiety F41.9 [facility] [address] [place] [id number] [address] [place] [address] Feb, Exposure to pertussis Z20.81 8 [place] [address] [place] [id number] [address] [place] [address] Jan, [place] [address] [address] Jan, Chronic migraine G43.709 and Anxiety F41.9 [place] [address] [address] December, Anxiety F41.9 [place] [address] [place] [id number] [place] [address] Nov, Chronic migraine G43.709 ; S easonal allergic rhinitis, unspecified allergic rhinitis trigger J30.2 ; Vitamin D deficiency E55.9 ; Nocturnal dyspnea R06.00 ; Daytime hypersomnia G47.19 and Anxiety F41.9 [place] [id number] [place] [address] Nov, Chronic migraine G43.709 [place] [address] [place] [id number] [address] [place] [address] Oct, [place] [address] [address] Sep, Carpal tunnel syndrome, bila teral G56.03 [place] [address] [place] [id number] [address] [place] [address] Sep, Chronic migraine G43.709 [place] [address] [place] [id number] [address] [place] [address] Aug, [place] [address] [place] [id number] [address] [place] [address] Jul, Seasonal allergic rhinitis, unspecified allergic rhinitis trigger J30.2 [place] [address] [place] [id number] [address] [place] [address] Jul, Seasonal allergic rhinitis, unspecified allergic rhinitis trigger J30.2 [place] [address] [place] [id number] [address] [place] [address] Jul, Chronic migraine G43.709 [facility] [address] [facility] [place] [id number] [address] [place] [address] Jun, [facility] [address] [id number] [address] [place] [id number] May, Dental caries K02.9 [facility] [address] [facility] [place] [id number] [address] [place] [address] May, Chronic migraine G43.709 [facility] [address] [facility] [place] [id number] [address] [place] [address] Apr, Chronic migraine G43.709 ; I yvette deficiency anemia, unspecified iron deficiency anemia type D50.9 ; Perimenopausal N95.1 and Vitamin D deficiency E55.9 [place] [address] [facility] [place] [id number] [address] [place] [address] Mar, [place] [address] [place] [id number] [address] [place] [address] Mar, Seasonal allergic rhinitis, unspecified allergic rhinitis trigger J30.2 [facility] [address] [facility] [place] [id number] [address] [place] [address] Mar, Chronic migraine G43.709 [facility] [address] [facility] [place] [id number] [address] [place] [address] Mar, [facility] [address] [facility] [place] [id number] [address] [place] [address] Mar, Chronic migraine G43.709 ; I rregular menses N92.6 ; Iron deficiency anemia, unspecified iron deficiency anemia type D50.9 and General medical exam Z00.00 [facility] [address] [facility] [place] [id number] [address] [place] [address] Mar, Chronic migraine G43.709 ; I yvette deficiency anemia, unspecified iron deficiency anemia type D50.9 ; Irregular menses N92.6 and General medical exam Z00.00 [facility] [address] [place] [id number] [address] [place] [address] [id number] Feb, Dental examination Z01.20 [facility] [address] [id number] [address] [place] [address] Feb, Chronic tension-type headach e, 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 and Seasonal allergic rhinitis, unspecified allergic rhinitis trigger J30.2 [facility] [address] [id number] [address] [place] [address] Feb, [facility] [address] [id number] [address] [place] [address] Jan, Seasonal allergic rhinitis, unspecified allergic rhinitis trigger J30.2 [facility] [address] [facility] [place] [id number] [address] [place] [address] December, Chronic tension-type headach e, 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 [facility] [address] [id number] [address] [place] [id number] December, Dental examination Z01.20 [facility] [address] [id number] [address] [place] [address] December, [facility] [address] [facility] [place] [id number] [address] [place] [address] Oct, [facility] [address] [id number] [address] [place] [address] Oct, [facility] [address] [facility] [place] [id number] [address] [place] [address] Oct, Sore throat J02.9 and Season al allergic rhinitis, unspecified allergic rhinitis trigger J30.2 [facility] [address] [id number] [address] [place] [address] Oct, [facility] [address] [facility] [place] [id number] [address] [place] [address] Sep, [facility] [address] [facility] [place] [id number] [address] [place] [address] Aug, Menstrual periods irregular N92.6 ; Chronic tension-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, 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 ; Acute upper respiratory infection, unspecified J06.9 and Other viral agents as the cause of diseases classified elsewhere B97.89 [facility] [address] [id number] [address] [place] [address] Jul, [facility] [address] [id number] [address] [place] [address] Jul, [facility] [address] [id number] [address] [place] [address] Jul, Migraine without aura and wi thout status migrainosus, not intractable G43.009 [facility] [address] [id number] [address] [place] [address] Jun, [facility] [address] [facility] [place] [id number] [address] [place] [address] May, Migraine without aura and wi thout status migrainosus, not intractable G43.009 [facility] [address] [id number] [address] [place] [address] May, [facility] [address] [id number] [address] [place] [address] May, [facility] [address] [id number] [address] [place] [id number] Mar, Dental examination Z01.20 [facility] [address] [id number] [address] [place] [address] Mar, [facility] [address] [facility] [place] [id number] [address] [place] [address] Jan, Onychomycosis B35.1 [facility] [address] [id number] [address] [place] [address] Jan, [facility] [address] [facility] [place] [id number] [address] [place] [address] December, Dental caries K02.9 [facility] [address] [id number] [address] [place] [address] Nov, Dental examination Z01.20 [facility] [address] [id number] [address] [place] [address] Oct, Dental examination Z01.20 [facility] [address] [id number] [address] [place] [address] Oct, [facility] [address] [id number] [address] [place] [address] Oct, Migraine G43.909 [facility] [address] [id number] [address] [place] [address] Sep, Onychomycosis B35.1 [facility] [address] [id number] [address] [place] [address] Sep, [facility] [address] [facility] [place] [id number] [address] [place] [phone] Aug, [facility] [address] [facility] [place] [id number] [address] [place] [address] Jul, [facility] [address] [id number] [address] [place] [address] Apr, [facility] [address] [facility] [place] [id number] [address] [place] [address] Apr, Right anterior knee pain 719 .46 [facility] [address] [facility] [place] [id number] [address] [place] [address] Mar, Tendonitis 726.90 ; HTN (hyp ertension) 401.9 ; Tremors of nervous system 781.0 and Anxiety 300.00 [facility] [address] [id number] [address] [place] [address] Mar, Thrush 112.0 [facility] [address] [facility] [place] [id number] [address] [place] [address] Feb, [facility] [address] [facility] [place] [id number] [address] [place] [address] Feb, Tremors of nervous system 78 1.0 and Carpal tunnel syndrome 354.0 [facility] [address] [id number] [address] [place] [address] Jan, Anxiety 300.00 ; Tremors of nervous system 781.0 and Tendonitis 726.90 [facility] [address] [id number] [address] [place] [address] Jan, Anxiety 300.00 ; Tremors of nervous system 781.0 and Tendonitis 726.90 [facility] [address] [id number] [address] [place] [address] Jan, Sinusitis 473.9 [facility] [address] [id number] [address] [place] [phone] December, [facility] [address] [id number] [address] [place] [address] December, [facility] [address] [id number] [address] [place] [address] December, [facility] [address] [id number] [address] [place] [address] December, [facility] [address] [id number] [address] [place] [address] December, [facility] [address] [facility] [place] [id number] [address] [place] [phone] Nov, [facility] [address] [id number] [address] [place] [address] Nov, [facility] [address] [id number] [address] [place] [phone] Sep, [facility] [address] [id number] [address] [place] [address] Sep, [facility] [address] [id number] [address] [place] [address] Sep, [facility] [address] [id number] [address] [place] [address] Sep, [facility] [address] [id number] [address] [place] [address], [place] [address] Jul, [facility] [address] [id number] [address] [place] [address], [place] [address] Jul, [facility] [address] [id number] [address] [place] [address], [place] [address] Jul, [facility] [address] [id number] [address] [place] [address], [place] [address] Jul, [facility] [address] [id number] [address] [place] [address], [place] [address] Jul, [facility] [address] [id number] [address] [place] [address], [place] [address] Jul, [facility] [address] [id number] [address] [place] [address], [place] [address] Jul, [facility] [address] [id number] [address] [place] [address], [place] [address] Jul, [facility] [address] [id number] [address] [place] [address], [place] [address] Jul, [facility] [address] [id number] [address] [place] [address], [place] [address] Jul, [facility] [address] [id number] [address] [place] [address], [place] [address] Jun, [facility] [address] [id number] [address] [place] [address], [place] [address] Jun, [facility] [address] [id number] [address] [place] [address], [place] [address] Jun, [facility] [address] [id number] [address] [place] [address], [place] [address] Jun, [facility] [address] [id number] [address] [place] [address], [place] [address] May, [facility] [address] [id number] [address] [place] [address], [place] [address] 28 May, 2014 [facility] [address] [id number] [address] [place] [address], [place] [address] 14 May, 2014 [facility] [address] [id number] [address] [place] [address], [place] [address] 14 May, 2014 [facility] [address] [id number] [address] [place] [address], [place] [address] 17 Apr, 2013 [facility] [address] [id number] [address] [place] [address], [place] [id number] 17 Apr, 2013 [facility] [address] [id number] [address] [place] [address], [place] [id number] 17 Apr, 2013 [facility] [address] [id number] [address] [place] [address], [place] [id number] 17 Apr, 2013 [facility] [address] [id number] [address] [place] [address], [place] [address] 16 Apr, 2013 [facility] [address] [id number] [address] [place] [address], [place] [address] 16 Apr, 2013 [facility] [address] [id number] [address] [place] [address], [place] [address] 03 Apr, 2014 [facility] [address] [id number] [address] [place] [address], [place] [address] 03 Apr, 2014 [facility] [address] [id number] [address] [place] [address], [place] [address] Mar, [facility] [address] [id number] [address] [place] [address], [place] [address] Mar, [facility] [address] [id number] [address] [place] [address], [place] [address] Feb, [facility] [address] [id number] [address] [place] [address], [place] [address] Feb, [facility] [address] [id number] [address] [place] [address], [place] [address] Feb, [facility] [address] [id number] [facility] [place] [address] Feb, [facility] [address] [id number] [facility] [place] [address] Jan, [facility] [address] [id number] [address] [place] [address], [place] [address] Jan, [facility] [address] [id number] [address] [place] [address], [place] [address] Jan, [facility] [address] [id number] [address] [place] [address], [place] [address] Jan, [facility] [address] [id number] [address] [place] [address], [place] [address] Jan, [facility] [address] [id number] [address] [place] [address], [place] [address] Jan, [facility] [address] [id number] [address] [place] [address], [place] [address] December, [facility] [address] [id number] [address] [place] [address], [place] [address] December, [facility] [address] [id number] [address] [place] [address], [place] [address] December, [facility] [address] [id number] [address] [place] [address], [place] [address] December, [facility] [address] [id number] [address] [place] [address], [place] [address] December, [facility] [address] [id number] [address] [place] [address], [place] [address] Nov, [facility] [address] [id number] [address] [place] [address], [place] [address] Nov, [facility] [address] [id number] [address] [place] [address], [place] [address] Nov, [facility] [address] [id number] [address] [place] [address], [place] [address] 23 Nov, 2013 [facility] [address] [id number] [address] [place] [address], [place] [address] Nov, [facility] [address] [id number] [address] [place] [address], [place] [address] Nov, [facility] [address] [id number] [address] [place] [address], [place] [address] Oct, [facility] [address] [id number] [address] [place] [address], [place] [id number] Oct, [facility] [address] [id number] [address] [place] [address], [place] [id number] Oct, [facility] [address] [id number] [address] [place] [address], [place] [id number] Oct, [facility] [address] [id number] [address] [place] [address], [place] [id number] 14 Sep, 2013 [facility] [address] [id number] [address] [place] [address], [place] [id number] 14 Sep, 2013 [facility] [address] [id number] [address] [place] [address], [place] [id number] 10 Sep, 2013 [facility] [address] [id number] [address] [place] [address], [place] [id number] 10 Sep, 2013 [facility] [address] [id number] [address] [place] [address], [place] [id number] 07 Sep, 2013 [facility] [address] [id number] [address] [place] [address], [place] [id number] 06 Sep, 2013 [facility] [address] [id number] [address] [place] [address], [place] [id number] 06 Sep, 2013 [facility] [address] [id number] [address] [place] [address], [place] [id number] 05 Sep, 2013 [facility] [address] [id number] [address] [place] [address], [place] [id number] Sep, [facility] [address] [id number] [address] [place] [address], [place] [id number] Sep, [facility] [address] [id number] [address] [place] [address], [place] [id number] Sep, [facility] [address] [id number] [address] [place] [address], [place] [id number] Sep, [facility] [address] [id number] [address] [place] [address], [place] [id number] Sep, [facility] [address] [id number] [address] [place] [address], [place] [address] Aug, [facility] [address] [id number] [address] [place] [address], [place] [id number] Aug, [facility] [address] [id number] [address] [place] [address], [place] [id number] Jul, [facility] [address] [id number] [address] [place] [address], [place] [id number] Jul, [facility] [address] [id number] [address] [place] [address], [place] [id number] Jun, [facility] [address] [id number] [address] [place] [address], [place] [id number] Jun, [facility] [address] [id number] [address] [place] [address], [place] [id number] May, [facility] [address] [id number] [address] [place] [address], [place] [address] Apr, [facility] [address] [id number] [address] [place] [address], [place] [id number] Mar, [facility] [address] [id number] [address] [place] [address], [place] [id number] Jan, [facility] [address] [id number] [address] [place] [address], [place] [id number] December, [facility] [address] [id number] [address] [place] [address], [place] [id number] December, [facility] [address] [id number] [address] [place] [address], [place] [id number] Oct, [facility] [address] [id number] [address] [place] [address], [place] [address] Oct, [facility] [address] [id number] [address] [place] [address], [place] [id number] Sep, [facility] [address] [id number] [address] [place] [address], [place] [id number] Aug, [facility] [address] [id number] [address] [place] [address], [place] [id number] Aug, [facility] [address] [id number] [address] [place] [address], [place] [id number] Jul, [facility] [address] [id number] [address] [place] [address], [place] [id number] Jul, [facility] [address] [id number] [address] [place] [address], [place] [id number] Mar, [facility] [address] [id number] [address] [place] [address], [place] [id number] Mar, [facility] [address] [id number] [address] [place] [address], [place] [id number] Feb, [facility] [facility] [address] [id number] [address] [place] [address], [place] [id number] Feb, [facility] [address] [id number] [address] [place] [address], [place] [id number] Feb, [facility] [address] [id number] [address] [place] [address], [place] [id number] Jan, [facility] [address] [id number] [address] [place] [address], [place] [id number] Nov, [facility] [address] [id number] [address] [place] [address], [place] [id number] 17 Sep, 2011 [facility] [address] [id number] [address] [place] [address], [place] [id number] 15 Sep, 2011 [facility] [address] [id number] [address] [place] [address], [place] [id number] Sep, [facility] [address] [id number] [address] [place] [address], [place] [id number] Aug, [facility] [address] [id number] [address] [place] [address], [place] [id number] Aug, [facility] [address] [id number] [address] [place] [address], [place] [id number] Aug, [facility] [address] [id number] [address] [place] [address], [place] [id number] Jun, [facility] [address] [id number] [address] [place] [address], [place] [id number] Jun, [facility] [address] [id number] [address] [place] [address], [place] [id number] Jun, [facility] [address] [id number] [address] [place] [address], [place] [id number] Jun, [facility] [address] [id number] [address] [place] [address], [place] [id number] May, [facility] [address] [id number] [address] [place] [address], [place] [id number] May, [facility] [address] [id number] [address] [place] [id number] May, [facility] [address] [id number] [address] [place] [address], [place] [id number] May, [facility] [address] [id number] [address] [place] [address], [place] [id number] Jun, [facility] [address] [id number] [address] [place] [address], [place] [id number] December, [facility] [address] [id number] [facility] [place] [address] May, IMMUNIZATIONS No Known Immunizations SOCIAL HISTORY Never Assessed REASON FOR VISIT PLAN OF CARE VITAL SIGNS Height 64 in 2014-09-09 Weight 139.5 lbs 2014-09-09 Temperature 98.4 degrees Fahrenheit 2014-09-09 Heart Rate 80 bpm 2014-09-09 Respiratory Rate 16 2014-09-09 Blood pressure systolic 128 mmHg 2014-09-09 Blood pressure diastolic 72 mmHg 2014-09-09 MEDICATIONS No Known Medications RESULTS No Results [...]
--- OUTSIDE RECORDS SUMMARY | 2020-03-17 19:16 | XMS REPORT ---
Author Author Ann MCHUGH Organization [facility] Address [address] [place] [address] Care Team Providers Care Systems Integrator Name Role Phone RAFAELA MCHUGH Unavailable PROBLEMS Type Condition ICD9-CM Code VUK70-[place] Code Onset Dates Condition S tatus SNOMED Code Problem Perimenopausal N95.1 Active 29353 [id number] Problem Seasonal allergic rhinitis, unspecified allergic rhinitis trigger J30.2 Active 433418416 Problem Chronic migraine G43.709 Active 377 24223 Problem Anxiety F41.9 Active 70233180 Problem Vitamin D deficiency E55.9 Active 91104079 Problem Essential hypertension I10 Active 26193285 Problem Iron deficiency anemia, unspecified iron deficiency an emia type D50.9 Active 89873559 Problem Carpal tunnel syndrome, bilateral G56.03 Active [id number] Problem Daytime hypersomnia G47.19 Active 85771465185678 Problem Nocturnal dyspnea R06.00 Active 24 9254908 ALLERGIES No Information ENCOUNTERS Encounter Location Date Diagnosis [place] [address] [place] [id number] [address] [place] [address] Apr, Chronic migraine G43.709 ; E ssential hypertension I10 ; Iron deficiency anemia, unspecified iron deficiency anemia type D50.9 and Long-term use of high-risk medication Z79.899 [place] [address] [facility] [id number] [address] [place] [address] Feb, Seasonal allergic rhinitis, unspecified allergic rhinitis trigger J30.2 and Chronic migraine G43.709 [place] [address] [address] [facility] [id number] [address] [place] [address] Feb, Anxiety F41.9 [facility] [address] [place] [id number] [address] [place] [address] Feb, Exposure to pertussis Z20.81 8 [place] [address] [place] [id number] [address] [place] [address] Jan, [place] [address] [address] Jan, Chronic migraine G43.709 and Anxiety F41.9 [place] [address] [address] December, Anxiety F41.9 [place] [address] [place] [id number] [place] [address] Nov, Chronic migraine G43.709 ; S easonal allergic rhinitis, unspecified allergic rhinitis trigger J30.2 ; Vitamin D deficiency E55.9 ; Nocturnal dyspnea R06.00 ; Daytime hypersomnia G47.19 and Anxiety F41.9 [place] [id number] [place] [address] Nov, Chronic migraine G43.709 [place] [address] [place] [id number] [address] [place] [address] Oct, [place] [address] [address] Sep, Carpal tunnel syndrome, bila teral G56.03 [place] [address] [place] [id number] [address] [place] [address] Sep, Chronic migraine G43.709 [place] [address] [place] [id number] [address] [place] [address] Aug, [place] [address] [place] [id number] [address] [place] [address] Jul, Seasonal allergic rhinitis, unspecified allergic rhinitis trigger J30.2 [place] [address] [place] [id number] [address] [place] [address] Jul, Seasonal allergic rhinitis, unspecified allergic rhinitis trigger J30.2 [place] [address] [place] [id number] [address] [place] [address] Jul, Chronic migraine G43.709 [facility] [address] [facility] [id number] [address] [place] [address] Jun, [facility] [address] [id number] [address] [place] [address] [id number] May, Dental caries K02.9 [facility] [address] [facility] [id number] [address] [place] [address] May, Chronic migraine G43.709 [facility] [address] [facility] [id number] [address] [place] [address] Apr, Chronic migraine G43.709 ; I yvette deficiency anemia, unspecified iron deficiency anemia type D50.9 ; Perimenopausal N95.1 and Vitamin D deficiency E55.9 [place] [address] [facility] [id number] [address] [place] [address] Mar, [place] [address] [place] [id number] [address] [place] [address] Mar, Seasonal allergic rhinitis, unspecified allergic rhinitis trigger J30.2 [facility] [address] [facility] [id number] [address] [place] [address] Mar, Chronic migraine G43.709 [facility] [address] [facility] [id number] [address] [place] [address] Mar, [facility] [address] [facility] [id number] [address] [place] [address] Mar, Chronic migraine G43.709 ; I rregular menses N92.6 ; Iron deficiency anemia, unspecified iron deficiency anemia type D50.9 and General medical exam Z00.00 [facility] [address] [facility] [id number] [address] [place] [address] Mar, Chronic migraine G43.709 ; I yvette deficiency anemia, unspecified iron deficiency anemia type D50.9 ; Irregular menses N92.6 and General medical exam Z00.00 [facility] [address] [place] [id number] [address] [place] [address] [id number] Feb, Dental examination Z01.20 [facility] [address] [id number] [address] [place] [address] Feb, Chronic tension-type headach e, 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 and Seasonal allergic rhinitis, unspecified allergic rhinitis trigger J30.2 [facility] [address] [id number] [address] [place] [address] Feb, [facility] [address] [id number] [address] [place] [address] Jan, Seasonal allergic rhinitis, unspecified allergic rhinitis trigger J30.2 [facility] [address] [facility] [id number] [address] [place] [address] December, Chronic tension-type headach e, 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 [facility] [address] [id number] [address] [place] [address] [id number] December, Dental examination Z01.20 [facility] [address] [id number] [address] [place] [address] December, [facility] [address] [facility] [id number] [address] [place] [address] Oct, [facility] [address] [id number] [address] [place] [address] Oct, [facility] [address] [facility] [id number] [address] [place] [address] Oct, Sore throat J02.9 and Season al allergic rhinitis, unspecified allergic rhinitis trigger J30.2 [facility] [address] [id number] [address] [place] [address] Oct, [facility] [address] [facility] [id number] [address] [place] [address] Sep, [facility] [address] [facility] [id number] [address] [place] [address] Aug, Menstrual periods irregular N92.6 ; Chronic tension-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, 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 ; Acute upper respiratory infection, unspecified J06.9 and Other viral agents as the cause of diseases classified elsewhere B97.89 [facility] [address] [id number] [address] [place] [address] Jul, [facility] [address] [id number] [address] [place] [address] Jul, [facility] [address] [id number] [address] [place] [address] Jul, Migraine without aura and wi thout status migrainosus, not intractable G43.009 [facility] [address] [id number] [address] [place] [address] Jun, [facility] [address] [facility] [id number] [address] [place] [address] May, Migraine without aura and wi thout status migrainosus, not intractable G43.009 [facility] [address] [id number] [address] [place] [address] May, [facility] [address] [id number] [address] [place] [address] May, [facility] [address] [id number] [address] [place] [address] [id number] Mar, Dental examination Z01.20 [facility] [address] [id number] [address] [place] [address] Mar, [facility] [address] [facility] [id number] [address] [place] [address] Jan, Onychomycosis B35.1 [facility] [address] [id number] [address] [place] [address] Jan, [facility] [address] [facility] [id number] [address] [place] [address] December, Dental caries K02.9 [facility] [address] [id number] [address] [place] [address] Nov, Dental examination Z01.20 [facility] [address] [id number] [address] [place] [address] Oct, Dental examination Z01.20 [facility] [address] [id number] [address] [place] [address] Oct, [facility] [address] [id number] [address] [place] [address] Oct, Migraine G43.909 [facility] [address] [id number] [address] [place] [address] Sep, Onychomycosis B35.1 [facility] [address] [id number] [address] [place] [address] Sep, [facility] [address] [facility] [id number] [address] [place] [address] Aug, [facility] [address] [facility] [id number] [address] [place] [address] Jul, [facility] [address] [id number] [address] [place] [address] Apr, [facility] [address] [facility] [id number] [address] [place] [address] Apr, Right anterior knee pain 719 .46 [facility] [address] [facility] [id number] [address] [place] [address] Mar, Tendonitis 726.90 ; HTN (hyp ertension) 401.9 ; Tremors of nervous system 781.[address] [facility] [address] [id number] [address] [place] [address] Mar, Thrush 112.0 [facility] [address] [facility] [id number] [address] [place] [address] Feb, [facility] [address] [facility] [id number] [address] [place] [address] Feb, Tremors of nervous system 78 1.0 and Carpal tunnel syndrome 354.0 [facility] [address] [id number] [address] [place] [address] Jan, Anxiety 300.00 ; Tremors of nervous system 781.[address] [facility] [address] [id number] [address] [place] [address] Jan, Anxiety 300.00 ; Tremors of nervous system 781.[address] [facility] [address] [id number] [address] [place] [address] Jan, Sinusitis 473.9 [facility] [address] [id number] [address] [place] [address] December, [facility] [address] [id number] [address] [place] [address] December, [facility] [address] [id number] [address] [place] [address] December, [facility] [address] [id number] [address] [place] [address] December, [facility] [address] [id number] [address] [place] [address] December, [facility] [address] [facility] [id number] [address] [place] [address] Nov, [facility] [address] [id number] [address] [place] [address] Nov, [facility] [address] [id number] [address] [place] [address] Sep, [facility] [address] [id number] [address] [place] [address] Sep, [facility] [address] [id number] [address] [place] [address] Sep, [facility] [address] [id number] [address] [place] [address] Sep, [facility] [address] [id number] [address] [place] [address], [place] [address] Jul, [facility] [address] [id number] [address] [place] [address], [place] [address] Jul, [facility] [address] [id number] [address] [place] [address], [place] [address] Jul, [facility] [address] [id number] [address] [place] [address], [place] [address] Jul, [facility] [address] [id number] [address] [place] [address], [place] [address] Jul, [facility] [address] [id number] [address] [place] [address], [place] [address] Jul, [facility] [address] [id number] [address] [place] [address], [place] [address] Jul, [facility] [address] [id number] [address] [place] [address], [place] [address] Jul, [facility] [address] [id number] [address] [place] [address], [place] [address] Jul, [facility] [address] [id number] [address] [place] [address], [place] [address] Jul, [facility] [address] [id number] [address] [place] [address], [place] [address] Jun, [facility] [address] [id number] [address] [place] [address], [place] [address] Jun, [facility] [address] [id number] [address] [place] [address], [place] [address] Jun, [facility] [address] [id number] [address] [place] [address], [place] [address] Jun, [facility] [address] [id number] [address] [place] [address], [place] [address] May, [facility] [address] [id number] [address] [place] [address], [place] [address] 28 May, 2014 [facility] [address] [id number] [address] [place] [address], [place] [address] 14 May, 2014 [facility] [address] [id number] [address] [place] [address], [place] [address] 14 May, 2014 [facility] [address] [id number] [address] [place] [address], [place] [address] 17 Apr, 2013 [facility] [address] [id number] [address] [place] [address], [place] [address] 17 Apr, 2013 [facility] [address] [id number] [address] [place] [address], [place] [address] 17 Apr, 2013 [facility] [address] [id number] [address] [place] [address], [place] [address] 17 Apr, 2013 [facility] [address] [id number] [address] [place] [address], [place] [address] 16 Apr, 2013 [facility] [address] [id number] [address] [place] [address], [place] [address] 16 Apr, 2013 [facility] [address] [id number] [address] [place] [address], [place] [address] 03 Apr, 2014 [facility] [address] [id number] [address] [place] [address], [place] [address] 03 Apr, 2014 [facility] [address] [id number] [address] [place] [address], [place] [address] Mar, [facility] [address] [id number] [address] [place] [address], [place] [address] Mar, [facility] [address] [id number] [address] [place] [address], [place] [address] Feb, [facility] [address] [id number] [address] [place] [address], [place] [address] Feb, [facility] [address] [id number] [address] [place] [address], [place] [address] Feb, [facility] [address] [id number] [facility] [address] Feb, [facility] [address] [id number] [facility] [place] [address] Jan, [facility] [address] [id number] [address] [place] [address], [place] [address] Jan, [facility] [address] [id number] [address] [place] [address], [place] [address] Jan, [facility] [address] [id number] [address] [place] [address], [place] [address] Jan, [facility] [address] [id number] [address] [place] [address], [place] [address] Jan, [facility] [address] [id number] [address] [place] [address], [place] [address] Jan, [facility] [address] [id number] [address] [place] [address], [place] [address] December, [facility] [address] [id number] [address] [place] [address], [place] [address] December, [facility] [address] [id number] [address] [place] [address], [place] [address] December, [facility] [address] [id number] [address] [place] [address], [place] [address] December, [facility] [address] [id number] [address] [place] [address], [place] [address] December, [facility] [address] [id number] [address] [place] [address], [place] [address] Nov, [facility] [address] [id number] [address] [place] [address], [place] [address] Nov, [facility] [address] [id number] [address] [place] [address], [place] [address] Nov, [facility] [address] [id number] [address] [place] [address], [place] [address] 23 Nov, 2013 [facility] [address] [id number] [address] [place] [address], [place] [address] Nov, [facility] [address] [id number] [address] [place] [address], [place] [address] Nov, [facility] [address] [id number] [address] [place] [address], [place] [address] Oct, [facility] [address] [id number] [address] [place] [address], [place] [address] Oct, [facility] [address] [id number] [address] [place] [address], [place] [address] Oct, [facility] [address] [id number] [address] [place] [address], [place] [address] Oct, [facility] [address] [id number] [address] [place] [address], [place] [address] 14 Sep, 2013 [facility] [address] [id number] [address] [place] [address], [place] [address] 14 Sep, 2013 [facility] [address] [id number] [address] [place] [address], [place] [address] 10 Sep, 2013 [facility] [address] [id number] [address] [place] [address], [place] [address] 10 Sep, 2013 [facility] [address] [id number] [address] [place] [address], [place] [address] 07 Sep, 2013 [facility] [address] [id number] [address] [place] [address], [place] [address] 06 Sep, 2013 [facility] [address] [id number] [address] [place] [address], [place] [address] 06 Sep, 2013 [facility] [address] [id number] [address] [place] [address], [place] [address] 05 Sep, 2013 [facility] [address] [id number] [address] [place] [address], [place] [address] Sep, [facility] [address] [id number] [address] [place] [address], [place] [address] Sep, [facility] [address] [id number] [address] [place] [address], [place] [address] Sep, [facility] [address] [id number] [address] [place] [address], [place] [address] Sep, [facility] [address] [id number] [address] [place] [address], [place] [id number] Sep, [facility] [address] [id number] [address] [place] [address], [place] [id number] Aug, [facility] [address] [id number] [address] [place] [address], [place] [id number] Aug, [facility] [address] [id number] [address] [place] [address], [place] [id number] Jul, [facility] [address] [id number] [address] [place] [address], [place] [address] Jul, [facility] [address] [id number] [address] [place] [address], [place] [id number] Jun, [facility] [address] [id number] [address] [place] [address], [place] [id number] Jun, [facility] [address] [id number] [address] [place] [address], [place] [id number] May, [facility] [address] [id number] [address] [place] [address], [place] [id number] Apr, [facility] [address] [id number] [address] [place] [address], [place] [id number] Mar, [facility] [address] [id number] [address] [place] [address], [place] [phone] Jan, [facility] [address] [id number] [address] [place] [address], [place] [address] December, [facility] [address] [id number] [address] [place] [address], [place] [id number] December, [facility] [address] [id number] [address] [place] [address], [place] [address] Oct, [facility] [address] [id number] [address] [place] [address], [place] [address] Oct, [facility] [address] [id number] [address] [place] [address], [place] [id number] Sep, [facility] [address] [id number] [address] [place] [address], [place] [id number] Aug, [facility] [address] [id number] [address] [place] [address], [place] [id number] Aug, [facility] [address] [id number] [address] [place] [address], [place] [id number] Jul, [facility] [address] [id number] [address] [place] [address], [place] [address] Jul, [facility] [address] [id number] [address] [place] [address], [place] [id number] Mar, [facility] [address] [id number] [address] [place] [address], [place] [id number] Mar, [facility] [address] [id number] [address] [place] [address], [place] [id number] Feb, [facility] [address] [id number] [address] [place] [address], [place] [id number] Feb, [facility] [address] [id number] [address] [place] [address], [place] [id number] Feb, [facility] [address] [id number] [address] [place] [address], [place] [id number] Jan, [facility] [address] [id number] [address] [place] [address], [place] [phone] Nov, [facility] [address] [id number] [address] [place] [address], [place] [id number] 17 Sep, 2011 [facility] [address] [id number] [address] [place] [address], [place] [id number] 15 Sep, 2011 [facility] [address] [id number] [address] [place] [address], [place] [id number] Sep, [facility] [address] [id number] [address] [place] [address], [place] [id number] Aug, [facility] [address] [id number] [address] [place] [address], [place] [id number] Aug, [facility] [address] [id number] [address] [place] [address], [place] [id number] Aug, [facility] [address] [id number] [address] [place] [address], [place] [id number] Jun, [facility] [address] [id number] [address] [place] [address], [place] [id number] Jun, [facility] [address] [id number] [address] [place] [address], [place] [id number] Jun, [facility] [address] [id number] [address] [place] [address], [place] [id number] Jun, [facility] [address] [id number] [address] [place] [address], [place] [id number] May, [facility] [address] [id number] [address] [place] [address], [place] [id number] May, [facility] [address] [id number] [address] [place] [id number] May, [facility] [address] [id number] [address] [place] [address], [place] [id number] May, [facility] [address] [id number] [address] [place] [address], [place] [id number] Jun, [facility] [address] [id number] [address] [place] [address], [place] [id number] December, [facility] [address] [id number] [facility] [place] [address] May, IMMUNIZATIONS No Known Immunizations SOCIAL HISTORY Never Assessed REASON FOR VISIT PLAN OF CARE VITAL SIGNS Height 64 in 2014-04-24 Weight 141.3 lbs 2014-04-24 Temperature 98.2 degrees Fahrenheit 2014-04-24 Heart Rate 70 bpm 2014-04-24 Respiratory Rate 16 2014-04-24 Blood pressure systolic 122 mmHg 2014-04-24 Blood pressure diastolic 70 mmHg 2014-04-24 MEDICATIONS No Known Medications RESULTS No Results [...]
--- OUTSIDE RECORDS SUMMARY | 2020-03-17 19:17 | XMS REPORT ---
Author Author Ann Whitley Doctor Organization [facility] Address Unknown Phone Unavailable Care Team Providers Care Segregator Name Role Phone Migration, Doctor Unavailable Unavailable PROBLEMS Type Condition ICD9-CM Code OLU25-XY Code Onset Dates Condition S tatus SNOMED Code Problem Perimenopausal N95.1 Active 21984 3427089514 Problem Seasonal allergic rhinitis, unspecified allergic rhinitis trigger J30.2 Active 241553028 Problem Chronic migraine G43.709 Active 377 36413 Problem Anxiety F41.9 Active 41717665 Problem Vitamin D deficiency E55.9 Active 16899058 Problem Essential hypertension I10 Active 49016537 Problem Iron deficiency anemia, unspecified iron deficiency an emia type D50.9 Active 32401987 Problem Carpal tunnel syndrome, bilateral G56.03 Active 26230851597259390 Problem Daytime hypersomnia G47.19 Active 04489848511047 Problem Nocturnal dyspnea R06.00 Active 24 3558826 ALLERGIES No Information ENCOUNTERS Encounter Location Date Diagnosis [place] [address] [address] Apr, Chronic migraine G43.709 ; E ssential hypertension I10 ; Iron deficiency anemia, unspecified iron deficiency anemia type D50.9 and Long-term use of high-risk medication Z79.899 [place] [address] [address] [place] [id number] [place] [address] Feb, Seasonal allergic rhinitis, unspecified allergic rhinitis trigger J30.2 and Chronic migraine G43.709 [place] [address] [address] [place] [id number] [address] [place] [address] Feb, Anxiety F41.9 [place] [address] [address] Feb, Exposure to pertussis Z20.81 8 [place] [address] [address] Jan, [facility] [address] [facility] [id number] [address] [place] [address] Jan, Chronic migraine G43.[address] [facility] [address] [facility] [id number] [address] [place] [address] December, Anxiety F41.9 [place] [address] [address] [place] [id number] [address] [place] [address] Nov, Chronic migraine G43.709 ; S easonal allergic rhinitis, unspecified allergic rhinitis trigger J30.2 ; Vitamin D deficiency E55.9 ; Nocturnal dyspnea R06.00 ; Daytime hypersomnia G47.19 and Anxiety F41.9 [place] [address] [facility] [id number] [address] [place] [address] Nov, Chronic migraine G43.709 [place] [id number] [place] [address] Oct, [place] [address] [facility] [id number] [address] [place] [address] Sep, Carpal tunnel syndrome, bila teral G56.03 [place] [address] [address] [place] [id number] [address] [place] [address] Sep, Chronic migraine G43.709 [place] [address] [place] [id number] [address] [place] [address] Aug, [place] [address] [facility] [id number] [address] [place] [address] Jul, Seasonal allergic rhinitis, unspecified allergic rhinitis trigger J30.2 [place] [address] [facility] [id number] [address] [place] [address] Jul, Seasonal allergic rhinitis, unspecified allergic rhinitis trigger J30.2 [place] [address] [facility] [id number] [address] [place] [address] Jul, Chronic migraine G43.709 [place] [address] [facility] [id number] [address] [place] [address] 13 Jun, 2017 [facility] [address] [id number] [address] [place] [id number] May, Dental caries K02.9 [facility] [address] [facility] [id number] [address] [place] [address] 12 May, 2017 Chronic migraine G43.709 [place] [address] [facility] [id number] [address] [place] [address] Apr, Chronic migraine G43.709 ; I yvette deficiency anemia, unspecified iron deficiency anemia type D50.9 ; Perimenopausal N95.1 and Vitamin D deficiency E55.9 [place] [address] [facility] [id number] [address] [place] [address] Mar, [place] [address] [facility] [id number] [place] [address] Mar, Seasonal allergic rhinitis, unspecified allergic rhinitis trigger J30.2 [facility] [address] [place] [id number] [address] [place] [address] Mar, Chronic migraine G43.709 [place] [address] [place] [id number] [address] [place] [address] Mar, [facility] [address] [facility] [id number] [address] [place] [id number] Mar, Chronic migraine G43.709 ; I rregular menses N92.6 ; Iron deficiency anemia, unspecified iron deficiency anemia type D50.9 and General medical exam Z00.00 [facility] [address] [facility] [id number] [address] [place] [address] Mar, Chronic migraine G43.709 ; I yvette deficiency anemia, unspecified iron deficiency anemia type D50.9 ; Irregular menses N92.6 and General medical exam Z00.00 [facility] [address] [id number] [address] [place] [id number] Feb, Dental examination Z01.20 [facility] [address] [id number] [address] [place] [phone] 18 Feb, 2017 Chronic tension-type headach e, 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 and Seasonal allergic rhinitis, unspecified allergic rhinitis trigger J30.2 [facility] [address] [id number] [address] [place] [address] Feb, [facility] [address] [facility] [id number] [address] [place] [address] Jan, Seasonal allergic rhinitis, unspecified allergic rhinitis trigger J30.2 [facility] [address] [id number] [address] [place] [address] December, Chronic tension-type headach e, 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 [facility] [address] [id number] [address] [place] [id number] December, Dental examination Z01.20 [facility] [address] [facility] [id number] [address] [place] [address] December, [facility] [address] [facility] [id number] [address] [place] [address] Oct, [facility] [address] [facility] [id number] [address] [place] [address] Oct, [facility] [address] [facility] [id number] [address] [place] [address] Oct, Sore throat J02.9 and Season al allergic rhinitis, unspecified allergic rhinitis trigger J30.2 [facility] [address] [id number] [address] [place] [address] Oct, [facility] [address] [facility] [id number] [address] [place] [address] Sep, [facility] [address] [facility] [id number] [address] [place] [address] Aug, Menstrual periods irregular N92.6 ; Chronic tension-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, 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 ; Acute upper respiratory infection, unspecified J06.9 and Other viral agents as the cause of diseases classified elsewhere B97.89 [facility] [address] [id number] [address] [place] [address] Jul, [facility] [address] [id number] [address] [place] [address] Jul, [facility] [address] [id number] [address] [place] [address] Jul, Migraine without aura and wi thout status migrainosus, not intractable G43.009 [facility] [address] [id number] [address] [place] [address] Jun, [facility] [address] [id number] [address] [place] [address] May, Migraine without aura and wi thout status migrainosus, not intractable G43.009 [facility] [address] [id number] [address] [place] [address] May, [facility] [address] [id number] [address] [place] [address] May, [facility] [address] [id number] [address] [place] [address] [id number] Mar, Dental examination Z01.20 [facility] [address] [id number] [address] [place] [address] Mar, [facility] [address] [id number] [address] [place] [address] Jan, Onychomycosis B35.1 [facility] [address] [id number] [address] [place] [address] Jan, [facility] [address] [id number] [address] [place] [address] December, Dental caries K02.9 [facility] [address] [id number] [address] [place] [address] Nov, Dental examination Z01.20 [facility] [address] [facility] [id number] [address] [place] [address] Oct, Dental examination Z01.20 [facility] [address] [facility] [id number] [address] [place] [address] Oct, [facility] [address] [place] [id number] [address] [place] [address] Oct, Migraine G43.909 [facility] [address] [place] [id number] [address] [place] [address] Sep, Onychomycosis B35.1 [facility] [address] [facility] [id number] [address] [place] [address] Sep, [facility] [address] [place] [id number] [address] [place] [phone] Aug, [facility] [address] [address] Jul, [facility] [address] [place] [id number] [address] [place] [address] Apr, [facility] [address] [address] 10 Apr, 2015 Right anterior knee pain 719 .46 [facility] [address] [address] Mar, Tendonitis 726.90 ; HTN (hyp ertension) 401.9 ; Tremors of nervous system 781.[address] [facility] [address] [place] [id number] [address] [place] [address] Mar, Thrush 112.0 [facility] [address] [place] [id number] [address] [place] [address] Feb, [facility] [address] [place] [id number] [address] [place] [id number] 08 Feb, 2015 Tremors of nervous system 78 1.0 and Carpal tunnel syndrome 354.0 [facility] [address] [id number] [address] [place] [address] Jan, Anxiety 300.00 ; Tremors of nervous system 781.[address] [facility] [address] [facility] [id number] [address] [place] [phone] Jan, Anxiety 300.00 ; Tremors of nervous system 781.[address] [facility] [address] [id number] [address] [place] [address] Jan, Sinusitis 473.9 [facility] [address] [id number] [address] [place] [address] December, [facility] [address] [id number] [address] [place] [phone] December, [facility] [address] [id number] [address] [place] [phone] December, [facility] [address] [id number] [address] [place] [phone] December, [facility] [address] [id number] [address] [place] [phone] December, [facility] [address] [facility] [id number] [address] [place] [phone] Nov, [facility] [address] [facility] [id number] [address] [place] [phone] Nov, [facility] [address] [id number] [address] [place] [phone] Sep, [facility] [address] [id number] [address] [place] [address] Sep, [facility] [address] [facility] [id number] [address] [place] [phone] Sep, [facility] [address] [facility] [id number] [address] [place] [phone] Sep, [facility] [address] [id number] [address] [place] [address], [place] [address] Jul, [facility] [address] [id number] [address] [place] [address], [place] [address] Jul, [facility] [address] [id number] [address] [place] [address], [place] [address] Jul, [facility] [address] [id number] [address] [place] [address], [place] [address] Jul, [facility] [address] [id number] [address] [place] [address], [place] [address] Jul, [facility] [address] [id number] [address] [place] [address], [place] [address] Jul, [facility] [address] [id number] [address] [place] [address], [place] [address] Jul, [facility] [address] [id number] [address] [place] [address], [place] [address] Jul, [facility] [address] [id number] [address] [place] [address], [place] [address] Jul, [facility] [address] [id number] [address] [place] [address], [place] [address] Jul, [facility] [address] [id number] [address] [place] [address], [place] [address] Jun, [facility] [address] [id number] [address] [place] [address], [place] [address] Jun, [facility] [address] [id number] [address] [place] [address], [place] [address] Jun, [facility] [address] [id number] [address] [place] [address], [place] [address] Jun, [facility] [address] [id number] [address] [place] [address], [place] [address] May, [facility] [address] [id number] [address] [place] [address], [place] [address] May, [facility] [address] [id number] [address] [place] [address], [place] [address] 14 May, 2014 [facility] [address] [id number] [address] [place] [address], [place] [address] 14 May, 2014 [facility] [address] [id number] [address] [place] [address], [place] [address] 17 Apr, 2014 [facility] [address] [id number] [address] [place] [address], [place] [address] 17 Apr, 2013 [facility] [address] [id number] [address] [place] [address], [place] [address] 17 Apr, 2014 [facility] [address] [id number] [address] [place] [address], [place] [address] 17 Apr, 2014 [facility] [address] [id number] [address] [place] [address], [place] [address] 16 Apr, 2014 [facility] [address] [id number] [address] [place] [address], [place] [address] 16 Apr, 2014 [facility] [address] [id number] [address] [place] [address], [place] [address] Apr, [facility] [address] [id number] [address] [place] [address], [place] [address] Apr, [facility] [address] [id number] [address] [place] [address], [place] [address] Mar, [facility] [address] [id number] [address] [place] [address], [place] [address] Mar, [facility] [address] [id number] [address] [place] [address], [place] [address] Feb, [facility] [address] [id number] [address] [place] [address], [place] [address] Feb, [facility] [address] [id number] [address] [place] [address], [place] [address] Feb, [facility] [address] [id number] [address] [place] [address], [place] [address] Feb, [facility] [address] [id number] [address] [place] [address], [place] [address] Jan, [facility] [address] [id number] [address] [place] [address], [place] [address] Jan, [facility] [address] [id number] [address] [place] [address], [place] [address] Jan, [facility] [address] [id number] [address] [place] [address], [place] [address] Jan, [facility] [address] [id number] [address] [place] [address], [place] [address] Jan, [facility] [address] [id number] [address] [place] [address], [place] [address] Jan, [facility] [address] [id number] [address] [place] [address], [place] [address] December, [facility] [address] [id number] [address] [place] [address], [place] [address] December, [facility] [address] [id number] [address] [place] [address], [place] [address] December, [facility] [address] [id number] [address] [place] [address], [place] [address] December, [facility] [address] [id number] [address] [place] [address], [place] [address] December, [facility] [address] [id number] [address] [place] [address], [place] [address] Nov, [facility] [address] [id number] [address] [place] [address], [place] [address] Nov, [facility] [address] [id number] [address] [place] [address], [place] [address] Nov, [facility] [address] [id number] [address] [place] [address], [place] [address] Nov, [facility] [address] [id number] [facility] [place] [address] Nov, [facility] [address] [id number] [address] [place] [address], [place] [address] Nov, [facility] [address] [id number] [address] [place] [address], [place] [address] Oct, [facility] [address] [id number] [address] [place] [address], [place] [address] Oct, [facility] [address] [id number] [address] [place] [address], [place] [address] Oct, [facility] [address] [id number] [address] [place] [address], [place] [address] Oct, [facility] [address] [id number] [address] [place] [address], [place] [address] Sep, [facility] [address] [id number] [address] [place] [address], [place] [address] 14 Sep, 2013 [facility] [address] [id number] [address] [place] [address], [place] [address] 10 Sep, 2013 [facility] [address] [id number] [address] [place] [address], [place] [address] 10 Sep, 2013 [facility] [address] [id number] [address] [place] [address], [place] [address] Sep, [facility] [address] [id number] [address] [place] [address], [place] [address] Sep, [facility] [address] [id number] [address] [place] [address], [place] [address] Sep, [facility] [address] [id number] [address] [place] [address], [place] [address] 05 Sep, 2013 [facility] [address] [id number] [address] [place] [address], [place] [address] 05 Sep, 2013 [facility] [address] [id number] [address] [place] [address], [place] [address] Sep, [facility] [address] [id number] [address] [place] [address], [place] [address] Sep, [facility] [address] [id number] [address] [place] [address], [place] [address] Sep, [facility] [address] [id number] [address] [place] [address], [place] [address] Sep, [facility] [address] [id number] [address] [place] [address], [place] [address] Aug, [facility] [address] [id number] [address] [place] [address], [place] [address] Aug, [facility] [address] [id number] [address] [place] [address], [place] [address] Jul, [facility] [address] [id number] [address] [place] [address], [place] [address] Jul, [facility] [address] [id number] [address] [place] [address], [place] [address] Jun, [facility] [address] [id number] [address] [place] [address], [place] [address] Jun, [facility] [address] [id number] [address] [place] [address], [place] [address] May, [facility] [address] [id number] [address] [place] [address], [place] [address] Apr, [facility] [address] [id number] [address] [place] [address], [place] [address] Mar, [facility] [address] [id number] [address] [place] [address], [place] [address] Jan, [facility] [address] [id number] [address] [place] [address], [place] [address] December, [facility] [address] [id number] [address] [place] [address], [place] [address] December, [facility] [address] [id number] [address] [place] [address], [place] [address] Oct, [facility] [address] [id number] [address] [place] [address], [place] [address] Oct, [facility] [address] [id number] [address] [place] [address], [place] [address] Sep, [facility] [address] [id number] [address] [place] [address], [place] [address] Aug, [facility] [address] [id number] [address] [place] [address], [place] [address] Aug, [facility] [address] [id number] [address] [place] [address], [place] [address] Jul, [facility] [address] [id number] [address] [place] [address], [place] [address] Jul, [facility] [address] [id number] [address] [place] [address], [place] [address] Mar, [facility] [address] [id number] [address] [place] [address], [place] [address] Mar, [facility] [address] [id number] [address] [place] [address], [place] [address] Feb, [facility] [address] [id number] [address] [place] [address], [place] [address] Feb, [facility] [address] [id number] [address] [place] [address], [place] [address] Feb, [facility] [address] [id number] [address] [place] [address], [place] [address] Jan, [facility] [address] [id number] [address] [place] [address], [place] [address] Nov, [facility] [address] [id number] [address] [place] [address], [place] [address] Sep, [facility] [address] [id number] [address] [place] [id number] 15 Sep, 2011 [facility] [address] [id number] [address] [place] [address], [place] [address] Sep, [facility] [address] [id number] [address] [place] [address] Aug, [facility] [address] [id number] [address] [place] [address] Aug, [facility] [address] [id number] [address] [place] [address] Aug, [facility] [address] [id number] [address] [place] [phone] Jun, [facility] [address] [id number] [address] [place] [phone] Jun, [facility] [address] [id number] [address] [place] [id number] Jun, [facility] [address] [id number] [address] [place] [id number] Jun, [facility] [address] [id number] [address] [place] [phone] May, [facility] [address] [id number] [address] [place] [phone] May, [facility] [address] [id number] [address] [place] [id number] May, [facility] [address] [id number] [address] [place] [phone] May, [facility] [address] [id number] [address] [place] [phone] Jun, [facility] [address] [id number] [address] [place] [phone] December, [facility] [address] [id number] [address] [place] [phone] May, IMMUNIZATIONS No Known Immunizations SOCIAL HISTORY Never Assessed REASON FOR VISIT EMR-[facility] PLAN OF CARE VITAL SIGNS MEDICATIONS No [...]
--- OUTSIDE RECORDS SUMMARY | 2020-03-17 19:17 | XMS REPORT ---
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 Name Role Phone ANDERSON MCCORD Unavailable PROBLEMS Type Condition ICD9-CM Code OUV39-CZ Code Onset Dates Condition S tatus SNOMED Code Problem Perimenopausal N95.1 Active 69713 [id number] Problem Seasonal allergic rhinitis, unspecified allergic rhinitis trigger J30.2 Active 004211146 Problem Chronic migraine G43.709 Active 377 21287 Problem Anxiety F41.9 Active 34648897 Problem Vitamin D deficiency E55.9 Active 18071469 Problem Essential hypertension I10 Active 59071115 Problem Iron deficiency anemia, unspecified iron deficiency an emia type D50.9 Active 87976521 Problem Carpal tunnel syndrome, bilateral G56.03 Active [id number] Problem Daytime hypersomnia G47.19 Active 14121021878579 Problem Nocturnal dyspnea R06.00 Active 24 3237492 ALLERGIES No Information ENCOUNTERS Encounter Location Date Diagnosis [place] [address] [id number] [place] [address] Apr, Chronic migraine G43.709 ; E ssential hypertension I10 ; Iron deficiency anemia, unspecified iron deficiency anemia type D50.9 and Long-term use of high-risk medication Z79.899 [place] [address] [facility] [id number] [address] [place] [address] Feb, Seasonal allergic rhinitis, unspecified allergic rhinitis trigger J30.2 and Chronic migraine G43.709 [place] [address] [facility] [id number] [address] [place] [address] Feb, Anxiety F41.9 [place] [facility] [id number] [address] [place] [address] Feb, Exposure to pertussis Z20.81 8 [place] [address] [place] [address] Jan, [place] [address] [address] [place] [id number] [address] [place] [address] Jan, Chronic migraine G43.709 and Anxiety F41.9 [place] [address] [address] [place] [id number] [address] [place] [address] December, Anxiety F41.9 [place] [address] [address] [place] [id number] [place] [address] Nov, Chronic migraine G43.709 ; S easonal allergic rhinitis, unspecified allergic rhinitis trigger J30.2 ; Vitamin D deficiency E55.9 ; Nocturnal dyspnea R06.00 ; Daytime hypersomnia G47.19 and Anxiety F41.9 [place] [address] [address] [place] [id number] [address] [place] [address] Nov, Chronic migraine G43.709 [place] [address] [facility] [id number] [address] [place] [address] Oct, [place] [address] [address] [place] [id number] [address] [place] [address] Sep, Carpal tunnel syndrome, bila teral G56.03 [place] [address] [address] [place] [id number] [address] [place] [address] Sep, Chronic migraine G43.709 [place] [address] [address] [place] [id number] [address] [place] [address] Aug, [place] [address] [facility] [id number] [address] [place] [address] Jul, Seasonal allergic rhinitis, unspecified allergic rhinitis trigger J30.2 [place] [address] [address] [place] [id number] [address] [place] [address] Jul, Seasonal allergic rhinitis, unspecified allergic rhinitis trigger J30.2 [place] [address] [address] [place] [id number] [address] [place] [address] Jul, Chronic migraine G43.709 [facility] [address] [facility] [id number] [address] [place] [address] Jun, [facility] [address] [facility] [id number] [address] [place] [id number] May, Dental caries K02.9 [facility] [address] [facility] [id number] [address] [place] [address] May, Chronic migraine G43.709 [place] [address] [facility] [id number] [address] [place] [address] Apr, Chronic migraine G43.709 ; I yvette deficiency anemia, unspecified iron deficiency anemia type D50.9 ; Perimenopausal N95.1 and Vitamin D deficiency E55.9 [place] [address] [address] [facility] [id number] [address] [place] [address] Mar, [place] [address] [facility] [id number] [address] [place] [address] Mar, Seasonal allergic rhinitis, unspecified allergic rhinitis trigger J30.2 [place] [address] [facility] [id number] [address] [place] [address] Mar, Chronic migraine G43.709 [place] [facility] [id number] [address] [place] [address] Mar, [facility] [address] [facility] [id number] [address] [place] [address] Mar, Chronic migraine G43.709 ; I rregular menses N92.6 ; Iron deficiency anemia, unspecified iron deficiency anemia type D50.9 and General medical exam Z00.00 [place] [facility] [id number] [address] [place] [address] Mar, Chronic migraine G43.709 ; I yvette deficiency anemia, unspecified iron deficiency anemia type D50.9 ; Irregular menses N92.6 and General medical exam Z00.00 [facility] [address] [facility] [id number] [address] [place] [id number] Feb, Dental examination Z01.20 [facility] [address] [id number] [address] [place] [address] Feb, Chronic tension-type headach e, 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 and Seasonal allergic rhinitis, unspecified allergic rhinitis trigger J30.2 [facility] [address] [id number] [address] [place] [address] Feb, [facility] [address] [id number] [address] [place] [address] Jan, Seasonal allergic rhinitis, unspecified allergic rhinitis trigger J30.2 [facility] [address] [facility] [id number] [address] [place] [address] December, Chronic tension-type headach e, 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 [facility] [address] [id number] [address] [place] [id number] December, Dental examination Z01.20 [facility] [address] [id number] [address] [place] [address] December, [facility] [address] [facility] [id number] [address] [place] [address] Oct, [facility] [address] [facility] [id number] [address] [place] [address] Oct, [facility] [address] [facility] [id number] [address] [place] [address] Oct, Sore throat J02.9 and Season al allergic rhinitis, unspecified allergic rhinitis trigger J30.2 [facility] [address] [id number] [address] [place] [address] Oct, [facility] [address] [facility] [id number] [address] [place] [address] Sep, [facility] [address] [facility] [id number] [address] [place] [address] 19 [place], 2017 Menstrual periods irregular N92.6 ; Chronic tension-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, 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 ; Acute upper respiratory infection, unspecified J06.9 and Other viral agents as the cause of diseases classified elsewhere B97.89 [facility] [address] [id number] [address] [place] [address] Jul, [facility] [address] [id number] [address] [place] [address] Jul, [facility] [address] [id number] [address] [place] [address] Jul, Migraine without aura and wi thout status migrainosus, not intractable G43.009 [facility] [address] [id number] [address] [place] [address] Jun, [facility] [address] [facility] [id number] [address] [place] [address] May, Migraine without aura and wi thout status migrainosus, not intractable G43.009 [facility] [address] [id number] [address] [place] [address] May, [facility] [address] [facility] [id number] [address] [place] [address] May, [facility] [address] [id number] [address] [place] [id number] Mar, Dental examination Z01.20 [facility] [address] [id number] [address] [place] [address] Mar, [facility] [address] [id number] [address] [place] [address] Jan, Onychomycosis B35.1 [facility] [address] [facility] [id number] [address] [place] [address] Jan, [facility] [address] [facility] [id number] [address] [place] [address] December, Dental caries K02.9 [facility] [address] [facility] [id number] [address] [place] [address] Nov, Dental examination Z01.20 [facility] [address] [id number] [address] [place] [address] Oct, Dental examination Z01.20 [facility] [address] [id number] [address] [place] [address] Oct, [facility] [address] [facility] [id number] [address] [place] [address] Oct, Migraine G43.909 [facility] [address] [id number] [address] [place] [address] Sep, Onychomycosis B35.1 [facility] [address] [facility] [id number] [address] [place] [address] Sep, [facility] [address] [facility] [id number] [address] [place] [address] Aug, [facility] [address] [facility] [id number] [address] [place] [address] Jul, [facility] [address] [facility] [id number] [address] [place] [address] Apr, [facility] [address] [facility] [id number] [address] [place] [address] Apr, Right anterior knee pain 719 .46 [facility] [address] [place] [id number] [address] [place] [address] Mar, Tendonitis 726.90 ; HTN (hyp ertension) 401.9 ; Tremors of nervous system 781.0 and Anxiety 300.00 [facility] [address] [facility] [id number] [address] [place] [address] Mar, Thrush 112.0 [facility] [address] [facility] [id number] [address] [place] [address] Feb, [facility] [address] [place] [id number] [address] [place] [address] Feb, Tremors of nervous system 78 1.0 and Carpal tunnel syndrome 354.0 [facility] [address] [id number] [address] [place] [address] Jan, Anxiety 300.00 ; Tremors of nervous system 781.0 and Tendonitis 726.90 [facility] [address] [id number] [address] [place] [address] Jan, Anxiety 300.00 ; Tremors of nervous system 781.0 and Tendonitis 726.90 [facility] [address] [id number] [address] [place] [address] Jan, Sinusitis 473.9 [facility] [address] [id number] [address] [place] [address] December, [facility] [address] [id number] [address] [place] [address] December, [facility] [address] [id number] [address] [place] [address] December, [facility] [address] [id number] [address] [place] [address] December, [facility] [address] [id number] [address] [place] [address] December, [facility] [address] [id number] [address] [place] [address] Nov, [facility] [address] [id number] [address] [place] [address] Nov, [facility] [address] [id number] [address] [place] [address] Sep, [facility] [address] [id number] [address] [place] [address] Sep, [facility] [address] [id number] [address] [place] [phone] Sep, [facility] [address] [id number] [address] [place] [address], [place] [address] 02 Sep, 2014 [facility] [address] [id number] [address] [place] [address], [place] [address] Jul, [facility] [address] [id number] [address] [place] [address], [place] [address] Jul, [facility] [address] [id number] [address] [place] [address], [place] [address] Jul, [facility] [address] [id number] [address] [place] [address], [place] [address] Jul, [facility] [address] [id number] [address] [place] [address], [place] [address] Jul, [facility] [address] [id number] [address] [place] [address], [place] [address] Jul, [facility] [address] [id number] [address] [place] [address], [place] [address] Jul, [facility] [address] [id number] [address] [place] [address], [place] [address] Jul, [facility] [address] [id number] [address] [place] [address], [place] [address] Jul, [facility] [address] [id number] [address] [place] [address], [place] [address] Jul, [facility] [address] [id number] [address] [place] [address], [place] [address] Jun, [facility] [address] [id number] [address] [place] [address], [place] [address] Jun, [facility] [address] [id number] [address] [place] [address], [place] [address] Jun, [facility] [address] [id number] [address] [place] [address], [place] [address] Jun, [facility] [address] [id number] [address] [place] [address], [place] [address] May, [facility] [address] [id number] [address] [place] [address], [place] [address] May, [facility] [address] [id number] [address] [place] [address], [place] [address] May, [facility] [address] [id number] [address] [place] [address], [place] [address] May, [facility] [address] [id number] [address] [place] [address], [place] [address] 17 Apr, 2014 [facility] [address] [id number] [address] [place] [address], [place] [address] 17 Apr, 2014 [facility] [address] [id number] [address] [place] [address], [place] [address] 17 Apr, 2014 [facility] [address] [id number] [address] [place] [address], [place] [address] 17 Apr, 2014 [facility] [address] [id number] [address] [place] [address], [place] [address] 16 Apr, 2014 [facility] [address] [id number] [address] [place] [address], [place] [address] 16 Apr, 2014 [facility] [address] [id number] [address] [place] [address], [place] [address] Apr, [facility] [address] [id number] [address] [place] [address], [place] [address] Apr, [facility] [address] [id number] [address] [place] [address], [place] [address] Mar, [facility] [address] [id number] [address] [place] [address], [place] [address] Mar, [facility] [address] [id number] [address] [place] [address], [place] [address] Feb, [facility] [address] [id number] [address] [place] [address], [place] [address] Feb, [facility] [address] [id number] [address] [place] [address], [place] [address] Feb, [facility] [address] [id number] [facility] [place] [address] Feb, [facility] [address] [id number] [address] [place] [address], [place] [address] Jan, [facility] [address] [id number] [address] [place] [address], [place] [address] Jan, [facility] [address] [id number] [address] [place] [address], [place] [address] Jan, [facility] [address] [id number] [address] [place] [address], [place] [address] Jan, [facility] [address] [id number] [address] [place] [address], [place] [address] Jan, [facility] [address] [id number] [address] [place] [address], [place] [address] Jan, [facility] [address] [id number] [address] [place] [address], [place] [address] December, [facility] [address] [id number] [address] [place] [address], [place] [address] December, [facility] [address] [id number] [address] [place] [address], [place] [address] December, [facility] [address] [id number] [address] [place] [address], [place] [address] December, [facility] [address] [id number] [address] [place] [address], [place] [address] December, [facility] [address] [id number] [address] [place] [address], [place] [address] Nov, [facility] [address] [id number] [address] [place] [address], [place] [address] Nov, [facility] [address] [id number] [address] [place] [address], [place] [address] Nov, [facility] [address] [id number] [address] [place] [address], [place] [address] 23 Nov, 2013 [facility] [address] [id number] [address] [place] [address], [place] [address] Nov, [facility] [address] [id number] [address] [place] [address], [place] [address] Nov, [facility] [address] [id number] [address] [place] [address], [place] [address] Oct, [facility] [address] [id number] [address] [place] [address], [place] [address] Oct, [facility] [address] [id number] [address] [place] [address], [place] [address] Oct, [facility] [address] [id number] [address] [place] [address], [place] [address] Oct, [facility] [address] [id number] [address] [place] [address], [place] [address] 14 Sep, 2013 [facility] [address] [id number] [address] [place] [address], [place] [address] 14 Sep, 2013 [facility] [address] [id number] [address] [place] [address], [place] [address] 10 Sep, 2013 [facility] [address] [id number] [address] [place] [address], [place] [address] 10 Sep, 2013 [facility] [address] [id number] [address] [place] [address], [place] [address] 07 Sep, 2013 [facility] [address] [id number] [address] [place] [address], [place] [address] 06 Sep, 2013 [facility] [address] [id number] [address] [place] [address], [place] [address] 06 Sep, 2013 [facility] [address] [id number] [address] [place] [address], [place] [address] 05 Sep, 2013 [facility] [address] [id number] [address] [place] [address], [place] [address] Sep, [facility] [address] [id number] [address] [place] [address], [place] [address] Sep, [facility] [address] [id number] [address] [place] [address], [place] [address] Sep, [facility] [address] [id number] [address] [place] [address], [place] [address] Sep, [facility] [address] [id number] [address] [place] [address], [place] [address] Sep, [facility] [address] [id number] [address] [place] [address], [place] [address] Aug, [facility] [address] [id number] [address] [place] [address], [place] [address] Aug, [facility] [address] [id number] [address] [place] [address], [place] [address] Jul, [facility] [address] [id number] [address] [place] [address], [place] [address] Jul, [facility] [address] [id number] [address] [place] [address], [place] [address] Jun, [facility] [address] [id number] [address] [place] [address], [place] [address] Jun, [facility] [address] [id number] [address] [place] [address], [place] [address] May, [facility] [address] [id number] [address] [place] [address], [place] [address] Apr, [facility] [address] [id number] [address] [place] [address], [place] [address] Mar, [facility] [address] [id number] [address] [place] [address], [place] [address] Jan, [facility] [address] [id number] [address] [place] [address], [place] [address] December, [facility] [address] [id number] [address] [place] [address], [place] [address] December, [facility] [address] [id number] [address] [place] [address], [place] [address] Oct, [facility] [address] [id number] [address] [place] [address], [place] [address] Oct, [facility] [address] [id number] [address] [place] [address], [place] [address] Sep, [facility] [address] [id number] [address] [place] [address], [place] [address] Aug, [facility] [address] [id number] [address] [place] [address], [place] [address] Aug, [facility] [address] [id number] [address] [place] [address], [place] [address] Jul, [facility] [address] [id number] [address] [place] [address], [place] [address] Jul, [facility] [address] [id number] [address] [place] [address], [place] [address] Mar, [facility] [address] [id number] [address] [place] [address], [place] [address] Mar, [facility] [address] [id number] [address] [place] [address], [place] [address] Feb, [facility] [address] [id number] [address] [place] [address], [place] [address] Feb, [facility] [address] [id number] [address] [place] [address], [place] [address] Feb, [facility] [address] [id number] [address] [place] [address], [place] [address] Jan, [facility] [address] [id number] [address] [place] [address], [place] [address] Nov, [facility] [address] [id number] [address] [place] [address], [place] [address] 17 Sep, 2011 [facility] [address] [id number] [address] [place] [address], [place] [address] 15 Sep, 2011 [facility] [address] [id number] [address] [place] [address], [place] [address] Sep, [facility] [address] [id number] [address] [place] [address], [place] [address] Aug, [facility] [address] [id number] [address] [place] [address], [place] [address] Aug, [facility] [address] [id number] [address] [place] [address], [place] [address] Aug, [facility] [address] [id number] [address] [place] [address], [place] [address] Jun, [facility] [address] [id number] [address] [place] [address], [place] [address] Jun, [facility] [address] [id number] [address] [place] [address], [place] [address] Jun, [facility] [address] [id number] [address] [place] [address], [place] [address] Jun, [facility] [address] [id number] [address] [place] [address], [place] [address] May, [facility] [address] [id number] [address] [place] [address], [place] [address] May, [facility] [address] [id number] [address] [place] [id number] 18 May, 2011 [facility] [address] [id number] [address] [place] [address], [place] [address] 14 May, 2011 [facility] [address] [id number] [address] [place] [address], [place] [address] Jun, [facility] [address] [id number] [address] [place] [address], [place] [address] December, [facility] [address] [id number] [address] [place] [address] 29 May, 2009 IMMUNIZATIONS No Known Immunizations SOCIAL HISTORY Never Assessed REASON FOR VISIT PLAN OF CARE VITAL SIGNS Height 64 in 2014-09-16 Temperature 97.8 degrees Fahrenheit 2014-09-16 Heart Rate 110 bpm 2014-09-16 Respiratory Rate 16 2014-09-16 Blood pressure systolic 120 mmHg 2014-09-16 Blood pressure diastolic 78 mmHg 2014-09-16 MEDICATIONS No Known Medications RESULTS No Results PROCEDURES Procedure Date Ordered Result Body Site MEASURE BLOOD OXYGEN LEVEL Sep 16, 2014 INFLUENZA ASSAY W/OPTIC Sep 16, 2014 INSTRUCTIONS MEDICATIONS ADMINISTERED No Known Medications [...]
--- OUTSIDE RECORDS SUMMARY | 2020-03-17 19:17 | XMS REPORT ---
Author Author Ann Whitley Doctor Organization [facility] Address Unknown Phone Unavailable Care Team Providers Care Motor Tune Up Specialist Name Role Phone Migration, Doctor Unavailable Unavailable PROBLEMS Type Condition ICD9-CM Code MIM50-JV Code Onset Dates Condition S tatus SNOMED Code Problem Perimenopausal N95.1 Active 64283 [id number] Problem Seasonal allergic rhinitis, unspecified allergic rhinitis trigger J30.2 Active 340206960 Problem Chronic migraine G43.709 Active 377 60239 Problem Anxiety F41.9 Active 29444982 Problem Vitamin D deficiency E55.9 Active 77170235 Problem Essential hypertension I10 Active 52571471 Problem Iron deficiency anemia, unspecified iron deficiency an emia type D50.9 Active 16875207 Problem Carpal tunnel syndrome, bilateral G56.03 Active [id number] Problem Daytime hypersomnia G47.19 Active 33291586224657 Problem Nocturnal dyspnea R06.00 Active 24 3202089 ALLERGIES No Information ENCOUNTERS Encounter Location Date Diagnosis [place] [address] [address] Apr, Chronic migraine G43.709 ; E ssential hypertension I10 ; Iron deficiency anemia, unspecified iron deficiency anemia type D50.9 and Long-term use of high-risk medication Z79.899 [place] [address] [address] [place] [id number] [address] [place] [address] Feb, Seasonal allergic rhinitis, unspecified allergic rhinitis trigger J30.2 and Chronic migraine G43.709 [place] [address] [address] [place] [id number] [place] [address] Feb, Anxiety F41.9 [place] [address] [address] Feb, Exposure to pertussis Z20.81 8 [place] [address] [address] Jan, [facility] [address] [facility] [id number] [address] [place] [address] Jan, Chronic migraine G43.709 and Anxiety F41.9 [facility] [address] [facility] [id number] [address] [place] [address] December, Anxiety F41.9 [place] [address] [address] [place] [id number] [address] [place] [address] Nov, Chronic migraine G43.709 ; S easonal allergic rhinitis, unspecified allergic rhinitis trigger J30.2 ; Vitamin D deficiency E55.9 ; Nocturnal dyspnea R06.00 ; Daytime hypersomnia G47.19 and Anxiety F41.9 [place] [address] [address] [facility] [id number] [address] [place] [address] Nov, Chronic migraine G43.709 [place] [id number] [place] [address] Oct, [place] [address] [address] [facility] [id number] [address] [place] [address] Sep, Carpal tunnel syndrome, bila teral G56.03 [place] [address] [address] [place] [id number] [address] [place] [address] Sep, Chronic migraine G43.709 [place] [address] [address] [place] [id number] [address] [place] [address] Aug, [place] [address] [facility] [id number] [address] [place] [address] Jul, Seasonal allergic rhinitis, unspecified allergic rhinitis trigger J30.2 [place] [address] [address] [facility] [id number] [address] [place] [address] Jul, Seasonal allergic rhinitis, unspecified allergic rhinitis trigger J30.2 [place] [address] [address] [facility] [id number] [address] [place] [address] Jul, Chronic migraine G43.709 [place] [address] [facility] [id number] [address] [place] [address] 13 Jun, 2017 [facility] [address] [id number] [address] [place] [id number] May, Dental caries K02.9 [facility] [address] [facility] [id number] [address] [place] [address] 12 May, 2017 Chronic migraine G43.709 [place] [address] [facility] [id number] [address] [place] [address] Apr, Chronic migraine G43.709 ; I yvette deficiency anemia, unspecified iron deficiency anemia type D50.9 ; Perimenopausal N95.1 and Vitamin D deficiency E55.9 [place] [address] [facility] [id number] [address] [place] [address] Mar, [place] [address] [address] [facility] [id number] [place] [address] Mar, Seasonal allergic rhinitis, unspecified allergic rhinitis trigger J30.2 [facility] [address] [place] [id number] [address] [place] [address] Mar, Chronic migraine G43.709 [place] [address] [place] [id number] [address] [place] [address] Mar, [facility] [address] [facility] [id number] [address] [place] [address] Mar, Chronic migraine G43.709 ; I rregular menses N92.6 ; Iron deficiency anemia, unspecified iron deficiency anemia type D50.9 and General medical exam Z00.00 [facility] [address] [facility] [id number] [address] [place] [address] Mar, Chronic migraine G43.709 ; I yvette deficiency anemia, unspecified iron deficiency anemia type D50.9 ; Irregular menses N92.6 and General medical exam Z00.00 [facility] [address] [id number] [address] [place] [id number] Feb, Dental examination Z01.20 [facility] [address] [id number] [address] [place] [address] 18 Feb, 2017 Chronic tension-type headach e, 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 and Seasonal allergic rhinitis, unspecified allergic rhinitis trigger J30.2 [facility] [address] [id number] [address] [place] [address] Feb, [facility] [address] [facility] [id number] [address] [place] [address] Jan, Seasonal allergic rhinitis, unspecified allergic rhinitis trigger J30.2 [facility] [address] [id number] [address] [place] [address] December, Chronic tension-type headach e, 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 [facility] [address] [id number] [address] [place] [id number] December, Dental examination Z01.20 [facility] [address] [facility] [id number] [address] [place] [address] December, [facility] [address] [facility] [id number] [address] [place] [address] Oct, [facility] [address] [facility] [id number] [address] [place] [address] Oct, [facility] [address] [facility] [id number] [address] [place] [address] Oct, Sore throat J02.9 and Season al allergic rhinitis, unspecified allergic rhinitis trigger J30.2 [facility] [address] [id number] [address] [place] [address] Oct, [facility] [address] [facility] [id number] [address] [place] [address] Sep, [facility] [address] [facility] [id number] [address] [place] [address] Aug, Menstrual periods irregular N92.6 ; Chronic tension-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, 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 ; Acute upper respiratory infection, unspecified J06.9 and Other viral agents as the cause of diseases classified elsewhere B97.89 [facility] [address] [id number] [address] [place] [address] Jul, [facility] [address] [id number] [address] [place] [address] Jul, [facility] [address] [id number] [address] [place] [address] Jul, Migraine without aura and wi thout status migrainosus, not intractable G43.009 [facility] [address] [id number] [address] [place] [address] Jun, [facility] [address] [id number] [address] [place] [address] May, Migraine without aura and wi thout status migrainosus, not intractable G43.009 [facility] [address] [id number] [address] [place] [address] May, [facility] [address] [id number] [address] [place] [address] May, [facility] [address] [id number] [address] [place] [address] [id number] Mar, Dental examination Z01.20 [facility] [address] [id number] [address] [place] [address] Mar, [facility] [address] [id number] [address] [place] [address] Jan, Onychomycosis B35.1 [facility] [address] [id number] [address] [place] [address] Jan, [facility] [address] [id number] [address] [place] [address] December, Dental caries K02.9 [facility] [address] [id number] [address] [place] [address] Nov, Dental examination Z01.20 [facility] [address] [facility] [id number] [address] [place] [address] Oct, Dental examination Z01.20 [facility] [address] [facility] [id number] [address] [place] [address] Oct, [facility] [address] [place] [id number] [address] [place] [address] Oct, Migraine G43.909 [facility] [address] [place] [id number] [address] [place] [address] Sep, Onychomycosis B35.1 [facility] [address] [facility] [id number] [address] [place] [address] Sep, [facility] [address] [place] [id number] [address] [place] [address] Aug, [facility] [address] [address] Jul, [facility] [address] [place] [id number] [address] [place] [address] Apr, [facility] [address] [address] 10 Apr, 2015 Right anterior knee pain 719 .46 [facility] [address] [address] Mar, Tendonitis 726.90 ; HTN (hyp ertension) 401.9 ; Tremors of nervous system 781.0 and Anxiety 300.00 [facility] [address] [place] [id number] [address] [place] [address] Mar, Thrush 112.0 [facility] [address] [place] [id number] [address] [place] [address] Feb, [facility] [address] [place] [id number] [address] [place] [address] 08 Feb, 2015 Tremors of nervous system 78 1.0 and Carpal tunnel syndrome 354.0 [facility] [address] [id number] [address] [place] [address] Jan, Anxiety 300.00 ; Tremors of nervous system 781.0 and Tendonitis 726.90 [facility] [address] [facility] [id number] [address] [place] [address] Jan, Anxiety 300.00 ; Tremors of nervous system 781.0 and Tendonitis 726.90 [facility] [address] [id number] [address] [place] [address] Jan, Sinusitis 473.9 [facility] [address] [id number] [address] [place] [address] December, [facility] [address] [id number] [address] [place] [address] December, [facility] [address] [id number] [address] [place] [address] December, [facility] [address] [id number] [address] [place] [address] December, [facility] [address] [id number] [address] [place] [address] December, [facility] [address] [facility] [id number] [address] [place] [address] Nov, [facility] [address] [facility] [id number] [address] [place] [address] Nov, [facility] [address] [id number] [address] [place] [address] Sep, [facility] [address] [id number] [address] [place] [phone] Sep, [facility] [address] [facility] [id number] [address] [place] [address] Sep, [facility] [address] [facility] [id number] [address] [place] [address] Sep, [facility] [address] [id number] [address] [place] [address], [place] [address] Jul, [facility] [address] [id number] [address] [place] [address], [place] [address] Jul, [facility] [address] [id number] [address] [place] [address], [place] [address] Jul, [facility] [address] [id number] [address] [place] [address], [place] [address] Jul, [facility] [address] [id number] [address] [place] [address], [place] [address] Jul, [facility] [address] [id number] [address] [place] [address], [place] [address] Jul, [facility] [address] [id number] [address] [place] [address], [place] [address] Jul, [facility] [address] [id number] [address] [place] [address], [place] [address] Jul, [facility] [address] [id number] [address] [place] [address], [place] [address] Jul, [facility] [address] [id number] [address] [place] [address], [place] [address] Jul, [facility] [address] [id number] [address] [place] [address], [place] [address] Jun, [facility] [address] [id number] [address] [place] [address], [place] [address] Jun, [facility] [address] [id number] [address] [place] [address], [place] [address] Jun, [facility] [address] [id number] [address] [place] [address], [place] [address] Jun, [facility] [address] [id number] [address] [place] [address], [place] [address] May, [facility] [address] [id number] [address] [place] [address], [place] [address] May, [facility] [address] [id number] [address] [place] [address], [place] [address] 14 May, 2014 [facility] [address] [id number] [address] [place] [address], [place] [address] 14 May, 2014 [facility] [address] [id number] [address] [place] [address], [place] [address] 17 Apr, 2014 [facility] [address] [id number] [address] [place] [address], [place] [address] 17 Apr, 2013 [facility] [address] [id number] [address] [place] [address], [place] [address] 17 Apr, 2014 [facility] [address] [id number] [address] [place] [address], [place] [address] 17 Apr, 2014 [facility] [address] [id number] [address] [place] [address], [place] [address] 16 Apr, 2014 [facility] [address] [id number] [address] [place] [address], [place] [address] 16 Apr, 2014 [facility] [address] [id number] [address] [place] [address], [place] [address] Apr, [facility] [address] [id number] [address] [place] [address], [place] [address] Apr, [facility] [address] [id number] [address] [place] [address], [place] [address] Mar, [facility] [address] [id number] [address] [place] [address], [place] [address] Mar, [facility] [address] [id number] [address] [place] [address], [place] [address] Feb, [facility] [address] [id number] [address] [place] [address], [place] [address] Feb, [facility] [address] [id number] [address] [place] [address], [place] [address] Feb, [facility] [address] [id number] [address] [place] [address], [place] [address] Feb, [facility] [address] [id number] [address] [place] [address], [place] [address] Jan, [facility] [address] [id number] [address] [place] [address], [place] [address] Jan, [facility] [address] [id number] [address] [place] [address], [place] [address] Jan, [facility] [address] [id number] [address] [place] [address], [place] [address] Jan, [facility] [address] [id number] [address] [place] [address], [place] [address] Jan, [facility] [address] [id number] [address] [place] [address], [place] [address] Jan, [facility] [address] [id number] [address] [place] [address], [place] [address] December, [facility] [address] [id number] [address] [place] [address], [place] [address] December, [facility] [address] [id number] [address] [place] [address], [place] [address] December, [facility] [address] [id number] [address] [place] [address], [place] [address] December, [facility] [address] [id number] [address] [place] [address], [place] [address] December, [facility] [address] [id number] [address] [place] [address], [place] [address] Nov, [facility] [address] [id number] [address] [place] [address], [place] [address] Nov, [facility] [address] [id number] [address] [place] [address], [place] [address] Nov, [facility] [address] [id number] [address] [place] [address], [place] [address] Nov, [facility] [address] [id number] [facility] [place] [address] Nov, [facility] [address] [id number] [address] [place] [address], [place] [address] Nov, [facility] [address] [id number] [address] [place] [address], [place] [address] Oct, [facility] [address] [id number] [address] [place] [address], [place] [address] Oct, [facility] [address] [id number] [address] [place] [address], [place] [address] Oct, [facility] [address] [id number] [address] [place] [address], [place] [address] Oct, [facility] [address] [id number] [address] [place] [address], [place] [address] Sep, [facility] [address] [id number] [address] [place] [address], [place] [address] 14 Sep, 2013 [facility] [address] [id number] [address] [place] [address], [place] [address] 10 Sep, 2013 [facility] [address] [id number] [address] [place] [address], [place] [address] 10 Sep, 2013 [facility] [address] [id number] [address] [place] [address], [place] [address] Sep, [facility] [address] [id number] [address] [place] [address], [place] [address] Sep, [facility] [address] [id number] [address] [place] [address], [place] [address] Sep, [facility] [address] [id number] [address] [place] [address], [place] [address] 05 Sep, 2013 [facility] [address] [id number] [address] [place] [address], [place] [address] 05 Sep, 2013 [facility] [address] [id number] [address] [place] [address], [place] [address] Sep, [facility] [address] [id number] [address] [place] [address], [place] [address] Sep, [facility] [address] [id number] [address] [place] [address], [place] [address] Sep, [facility] [address] [id number] [address] [place] [address], [place] [address] Sep, [facility] [address] [id number] [address] [place] [address], [place] [address] Aug, [facility] [address] [id number] [address] [place] [address], [place] [address] Aug, [facility] [address] [id number] [address] [place] [address], [place] [address] Jul, [facility] [address] [id number] [address] [place] [address], [place] [address] Jul, [facility] [address] [id number] [address] [place] [address], [place] [address] Jun, [facility] [address] [id number] [address] [place] [address], [place] [address] Jun, [facility] [address] [id number] [address] [place] [address], [place] [address] May, [facility] [address] [id number] [address] [place] [address], [place] [address] Apr, [facility] [address] [id number] [address] [place] [address], [place] [address] Mar, [facility] [address] [id number] [address] [place] [address], [place] [address] Jan, [facility] [address] [id number] [address] [place] [address], [place] [address] December, [facility] [address] [id number] [address] [place] [address], [place] [address] December, [facility] [address] [id number] [address] [place] [address], [place] [address] Oct, [facility] [address] [id number] [address] [place] [address], [place] [address] Oct, [facility] [address] [id number] [address] [place] [address], [place] [address] Sep, [facility] [address] [id number] [address] [place] [address], [place] [address] Aug, [facility] [address] [id number] [address] [place] [address], [place] [address] Aug, [facility] [address] [id number] [address] [place] [address], [place] [address] Jul, [facility] [address] [id number] [address] [place] [address], [place] [address] Jul, [facility] [address] [id number] [address] [place] [address], [place] [address] Mar, [facility] [address] [id number] [address] [place] [address], [place] [address] Mar, [facility] [address] [id number] [address] [place] [address], [place] [address] Feb, [facility] [address] [id number] [place] [address], [place] [address] Feb, [facility] [address] [id number] [address] [place] [address], [place] [address] Feb, [facility] [address] [id number] [address] [place] [address], [place] [address] Jan, [facility] [address] [id number] [address] [place] [address], [place] [address] Nov, [facility] [address] [id number] [address] [place] [address], [place] [address] Sep, [facility] [address] [id number] [address] [place] [id number] 15 Sep, 2011 [facility] [address] [id number] [address] [place] [address], [place] [address] Sep, [facility] [address] [id number] [address] [place] [id number] Aug, [facility] [address] [id number] [address] [place] [phone] Aug, [facility] [address] [id number] [address] [place] [id number] Aug, [facility] [address] [id number] [address] [place] [id number] Jun, [facility] [address] [id number] [address] [place] [phone] Jun, [facility] [address] [id number] [address] [place] [phone] Jun, [facility] [address] [id number] [address] [place] [id number] Jun, [facility] [address] [id number] [address] [place] [phone] May, [facility] [address] [id number] [address] [place] [id number] May, [facility] [address] [id number] [address] [place] [id number] May, [facility] [address] [id number] [address] [place] [id number] May, [facility] [address] [id number] [address] [place] [id number] Jun, [facility] [address] [id number] [address] [place] [id number] December, [facility] [address] [id number] [address] [place] [id number] May, IMMUNIZATIONS No Known Immunizations SOCIAL HISTORY Never Assessed [place] [place] VITAL SIGNS MEDICATIONS No [...]
--- OUTSIDE RECORDS SUMMARY | 2020-03-17 19:17 | XMS REPORT ---
Author Author Ann Whitley Doctor Organization [facility] Address Unknown Phone Unavailable Care Team Providers Care Monitor Worker Name Role Phone Migration, Doctor Unavailable Unavailable PROBLEMS Type Condition ICD9-CM Code FCV19-CU Code Onset Dates Condition S tatus SNOMED Code Problem Perimenopausal N95.1 Active 39193 [id number] Problem Seasonal allergic rhinitis, unspecified allergic rhinitis trigger J30.2 Active 571958788 Problem Chronic migraine G43.709 Active 377 24788 Problem Anxiety F41.9 Active 65039296 Problem Vitamin D deficiency E55.9 Active 02622983 Problem Essential hypertension I10 Active 85661450 Problem Iron deficiency anemia, unspecified iron deficiency an emia type D50.9 Active 48772350 Problem Carpal tunnel syndrome, bilateral G56.03 Active 21802077404656659 Problem Daytime hypersomnia G47.19 Active [id number] Problem Nocturnal dyspnea R06.00 Active 24 8851008 ALLERGIES No Information ENCOUNTERS Encounter Location Date Diagnosis [place] [address] [address] Apr, Chronic migraine G43.709 ; E ssential hypertension I10 ; Iron deficiency anemia, unspecified iron deficiency anemia type D50.9 and Long-term use of high-risk medication Z79.899 [place] [address] [address] [place] [id number] [place] [address] Feb, Seasonal allergic rhinitis, unspecified allergic rhinitis trigger J30.2 and Chronic migraine G43.709 [place] [address] [address] [place] [id number] [address] [place] [address] Feb, Anxiety F41.9 [place] [address] [address] Feb, Exposure to pertussis Z20.81 8 [place] [address] [address] Jan, [facility] [place] [address] [facility] [id number] [place] [address] Jan, Chronic migraine G43.709 and Anxiety F41.9 [facility] [place] [address] [facility] [id number] [place] [address] December, Anxiety F41.9 [place] [address] [address] [place] [id number] [address] [place] [address] Nov, Chronic migraine G43.709 ; S easonal allergic rhinitis, unspecified allergic rhinitis trigger J30.2 ; Vitamin D deficiency E55.9 ; Nocturnal dyspnea R06.00 ; Daytime hypersomnia G47.19 and Anxiety F41.9 [place] [address] [facility] [id number] [place] [address] Nov, Chronic migraine G43.709 [place] [id number] [place] [address] Oct, [place] [address] [facility] [id number] [place] [address] Sep, Carpal tunnel syndrome, bila teral G56.03 [place] [address] [address] [place] [id number] [address] [place] [address] Sep, Chronic migraine G43.709 [place] [address] [address] [place] [id number] [address] [place] [address] Aug, [place] [address] [facility] [id number] [place] [address] Jul, Seasonal allergic rhinitis, unspecified allergic rhinitis trigger J30.2 [place] [address] [facility] [id number] [place] [address] Jul, Seasonal allergic rhinitis, unspecified allergic rhinitis trigger J30.2 [place] [address] [facility] [id number] [place] [address] Jul, Chronic migraine G43.709 [place] [address] [address] [facility] [id number] [place] [address] 13 Jun, 2017 [facility] [address] [id number] [address] [place] [id number] May, Dental caries K02.9 [facility] [place] [address] [facility] [id number] [place] [address] 12 May, 2017 Chronic migraine G43.709 [place] [address] [facility] [id number] [place] [address] Apr, Chronic migraine G43.709 ; I yvette deficiency anemia, unspecified iron deficiency anemia type D50.9 ; Perimenopausal N95.1 and Vitamin D deficiency E55.9 [place] [address] [facility] [id number] [place] [address] Mar, [place] [address] [facility] [id number] [place] [address] Mar, Seasonal allergic rhinitis, unspecified allergic rhinitis trigger J30.2 [facility] [place] [address] [place] [id number] [address] [place] [address] Mar, Chronic migraine G43.709 [place] [place] [id number] [address] [place] [address] Mar, [facility] [place] [address] [facility] [id number] [place] [address] Mar, Chronic migraine G43.709 ; I rregular menses N92.6 ; Iron deficiency anemia, unspecified iron deficiency anemia type D50.9 and General medical exam Z00.00 [facility] [place] [address] [facility] [id number] [place] [address] Mar, Chronic migraine G43.709 ; I yvette deficiency anemia, unspecified iron deficiency anemia type D50.9 ; Irregular menses N92.6 and General medical exam Z00.00 [facility] [address] [id number] [address] [place] [id number] Feb, Dental examination Z01.20 [facility] [place] [address] [id number] [address] [place] [address] 18 Feb, 2017 Chronic tension-type headach e, 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 and Seasonal allergic rhinitis, unspecified allergic rhinitis trigger J30.2 [facility] [place] [address] [id number] [address] [place] [address] Feb, [facility] [place] [address] [facility] [id number] [place] [address] Jan, Seasonal allergic rhinitis, unspecified allergic rhinitis trigger J30.2 [facility] [place] [address] [id number] [address] [place] [address] December, Chronic tension-type headach e, 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 [facility] [address] [id number] [address] [place] [id number] December, Dental examination Z01.20 [facility] [place] [address] [facility] [id number] [place] [address] December, [facility] [place] [address] [facility] [id number] [place] [address] Oct, [facility] [place] [address] [facility] [id number] [place] [address] Oct, [facility] [address] [facility] [id number] [place] [address] Oct, Sore throat J02.9 and Season al allergic rhinitis, unspecified allergic rhinitis trigger J30.2 [facility] [place] [address] [id number] [address] [place] [address] Oct, [facility] [place] [address] [facility] [id number] [place] [address] Sep, [facility] [place] [address] [facility] [id number] [place] [address] Aug, Menstrual periods irregular N92.6 ; Chronic tension-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, 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 ; Acute upper respiratory infection, unspecified J06.9 and Other viral agents as the cause of diseases classified elsewhere B97.89 [facility] [place] [address] [id number] [address] [place] [address] Jul, [facility] [place] [address] [id number] [address] [place] [address] Jul, [facility] [place] [address] [id number] [address] [place] [address] Jul, Migraine without aura and wi thout status migrainosus, not intractable G43.009 [facility] [place] [address] [id number] [address] [place] [address] Jun, [facility] [place] [address] [id number] [address] [place] [address] May, Migraine without aura and wi thout status migrainosus, not intractable G43.009 [facility] [place] [address] [id number] [address] [place] [address] May, [facility] [place] [address] [id number] [address] [place] [address] May, [facility] [address] [id number] [address] [place] [address] [id number] Mar, Dental examination Z01.20 [facility] [place] [address] [id number] [address] [place] [address] Mar, [facility] [place] [address] [id number] [address] [place] [address] Jan, Onychomycosis B35.1 [facility] [place] [address] [id number] [address] [place] [address] Jan, [facility] [place] [address] [id number] [address] [place] [address] December, Dental caries K02.9 [facility] [place] [address] [id number] [address] [place] [address] Nov, Dental examination Z01.20 [facility] [place] [address] [facility] [id number] [place] [address] Oct, Dental examination Z01.20 [facility] [place] [address] [facility] [id number] [place] [address] Oct, [facility] [place] [address] [place] [id number] [address] [place] [address] Oct, Migraine G43.909 [facility] [place] [address] [place] [id number] [address] [place] [address] Sep, Onychomycosis B35.1 [facility] [place] [address] [facility] [id number] [place] [address] Sep, [facility] [place] [address] [place] [id number] [address] [place] [address] Aug, [facility] [place] [address] [address] Jul, [facility] [place] [address] [place] [id number] [address] [place] [address] Apr, [facility] [place] [address] [address] 10 Apr, 2015 Right anterior knee pain 719 .46 [facility] [place] [address] [address] Mar, Tendonitis 726.90 ; HTN (hyp ertension) 401.9 ; Tremors of nervous system 781.0 and Anxiety 300.00 [facility] [place] [address] [place] [id number] [address] [place] [address] Mar, Thrush 112.0 [facility] [place] [address] [place] [id number] [address] [place] [address] Feb, [facility] [place] [address] [place] [id number] [address] [place] [address] 08 Feb, 2015 Tremors of nervous system 78 1.0 and Carpal tunnel syndrome 354.0 [facility] [place] [address] [id number] [address] [place] [address] Jan, Anxiety 300.00 ; Tremors of nervous system 781.0 and Tendonitis 726.90 [facility] [place] [address] [facility] [id number] [place] [address] Jan, Anxiety 300.00 ; Tremors of nervous system 781.0 and Tendonitis 726.90 [facility] [place] [address] [id number] [address] [place] [address] Jan, Sinusitis 473.9 [facility] [place] [address] [id number] [address] [place] [address] December, [facility] [place] [address] [id number] [address] [place] [address] December, [facility] [place] [address] [id number] [address] [place] [address] December, [facility] [place] [address] [id number] [address] [place] [address] December, [facility] [place] [address] [id number] [address] [place] [address] December, [facility] [place] [address] [facility] [id number] [place] [address] Nov, [facility] [place] [address] [facility] [id number] [place] [address] Nov, [facility] [place] [address] [id number] [address] [place] [address] Sep, [facility] [place] [address] [id number] [address] [place] [address] Sep, [facility] [place] [address] [facility] [id number] [place] [address] Sep, [facility] [place] [address] [facility] [id number] [place] [address] Sep, [facility] [address] [id number] [address] [place] [address], [place] [address] Jul, [facility] [address] [id number] [address] [place] [address], [place] [address] Jul, [facility] [address] [id number] [address] [place] [address], [place] [address] Jul, [facility] [address] [id number] [address] [place] [address], [place] [address] Jul, [facility] [address] [id number] [address] [place] [address], [place] [address] Jul, [facility] [address] [id number] [address] [place] [address], [place] [address] Jul, [facility] [address] [id number] [address] [place] [address], [place] [address] Jul, [facility] [address] [id number] [address] [place] [address], [place] [address] Jul, [facility] [address] [id number] [address] [place] [address], [place] [address] Jul, [facility] [address] [id number] [address] [place] [address], [place] [address] Jul, [facility] [address] [id number] [address] [place] [address], [place] [address] Jun, [facility] [address] [id number] [address] [place] [address], [place] [address] Jun, [facility] [address] [id number] [address] [place] [address], [place] [address] Jun, [facility] [address] [id number] [address] [place] [address], [place] [address] Jun, [facility] [address] [id number] [address] [place] [address], [place] [address] May, [facility] [address] [id number] [address] [place] [address], [place] [address] May, [facility] [address] [id number] [address] [place] [address], [place] [address] 14 May, 2014 [facility] [address] [id number] [address] [place] [address], [place] [address] 14 May, 2014 [facility] [address] [id number] [address] [place] [address], [place] [address] 17 Apr, 2014 [facility] [address] [id number] [address] [place] [address], [place] [address] 17 Apr, 2013 [facility] [address] [id number] [address] [place] [address], [place] [address] 17 Apr, 2014 [facility] [address] [id number] [address] [place] [address], [place] [address] 17 Apr, 2014 [facility] [address] [id number] [address] [place] [address], [place] [address] 16 Apr, 2014 [facility] [address] [id number] [address] [place] [address], [place] [address] 16 Apr, 2014 [facility] [address] [id number] [address] [place] [address], [place] [address] Apr, [facility] [address] [id number] [address] [place] [address], [place] [address] Apr, [facility] [address] [id number] [address] [place] [address], [place] [address] Mar, [facility] [address] [id number] [address] [place] [address], [place] [address] Mar, [facility] [address] [id number] [address] [place] [address], [place] [address] Feb, [facility] [address] [id number] [address] [place] [address], [place] [address] Feb, [facility] [address] [id number] [address] [place] [address], [place] [address] Feb, [facility] [address] [id number] [address] [place] [address], [place] [address] Feb, [facility] [address] [id number] [address] [place] [address], [place] [address] Jan, [facility] [address] [id number] [address] [place] [address], [place] [address] Jan, [facility] [address] [id number] [address] [place] [address], [place] [address] Jan, [facility] [address] [id number] [address] [place] [address], [place] [address] Jan, [facility] [address] [id number] [address] [place] [address], [place] [address] Jan, [facility] [address] [id number] [address] [place] [address], [place] [address] Jan, [facility] [address] [id number] [address] [place] [address], [place] [address] December, [facility] [address] [id number] [address] [place] [address], [place] [address] December, [facility] [address] [id number] [address] [place] [address], [place] [address] December, [facility] [address] [id number] [address] [place] [address], [place] [address] December, [facility] [address] [id number] [address] [place] [address], [place] [address] December, [facility] [address] [id number] [address] [place] [address], [place] [address] Nov, [facility] [address] [id number] [address] [place] [address], [place] [address] Nov, [facility] [address] [id number] [address] [place] [address], [place] [address] Nov, [facility] [address] [id number] [address] [place] [address], [place] [address] Nov, [facility] [address] [id number] [facility] [place] [address] Nov, [facility] [address] [id number] [address] [place] [address], [place] [address] Nov, [facility] [address] [id number] [address] [place] [address], [place] [address] Oct, [facility] [address] [id number] [address] [place] [address], [place] [address] Oct, [facility] [address] [id number] [address] [place] [address], [place] [address] Oct, [facility] [address] [id number] [address] [place] [address], [place] [address] Oct, [facility] [address] [id number] [address] [place] [address], [place] [address] Sep, [facility] [address] [id number] [address] [place] [address], [place] [address] 14 Sep, 2013 [facility] [address] [id number] [address] [place] [address], [place] [address] 10 Sep, 2013 [facility] [address] [id number] [address] [place] [address], [place] [address] 10 Sep, 2013 [facility] [address] [id number] [address] [place] [address], [place] [address] Sep, [facility] [address] [id number] [address] [place] [address], [place] [address] Sep, [facility] [address] [id number] [address] [place] [address], [place] [address] Sep, [facility] [address] [id number] [address] [place] [address], [place] [address] 05 Sep, 2013 [facility] [address] [id number] [address] [place] [address], [place] [address] 05 Sep, 2013 [facility] [address] [id number] [address] [place] [address], [place] [id number] Sep, [facility] [address] [id number] [address] [place] [address], [place] [id number] Sep, [facility] [address] [id number] [address] [place] [address], [place] [id number] Sep, [facility] [address] [id number] [address] [place] [address], [place] [id number] Sep, [facility] [address] [id number] [address] [place] [address], [place] [id number] Aug, [facility] [address] [id number] [address] [place] [address], [place] [id number] Aug, [facility] [address] [id number] [address] [place] [address], [place] [id number] Jul, [facility] [address] [id number] [address] [place] [address], [place] [id number] Jul, [facility] [address] [id number] [address] [place] [address], [place] [id number] Jun, [facility] [address] [id number] [address] [place] [address], [place] [address] Jun, [facility] [address] [id number] [address] [place] [address], [place] [address] May, [facility] [address] [id number] [address] [place] [address], [place] [address] Apr, [facility] [address] [id number] [address] [place] [address], [place] [id number] Mar, [facility] [address] [id number] [address] [place] [address], [place] [address] Jan, [facility] [address] [id number] [address] [place] [address], [place] [address] December, [facility] [address] [id number] [address] [place] [address], [place] [id number] December, [facility] [address] [id number] [address] [place] [address], [place] [address] Oct, [facility] [address] [id number] [address] [place] [address], [place] [address] Oct, [facility] [address] [id number] [address] [place] [address], [place] [id number] Sep, [facility] [address] [id number] [address] [place] [address], [place] [id number] Aug, [facility] [address] [id number] [address] [place] [address], [place] [address] Aug, [facility] [address] [id number] [address] [place] [address], [place] [id number] Jul, [facility] [address] [id number] [address] [place] [address], [place] [address] Jul, [facility] [address] [id number] [address] [place] [address], [place] [id number] Mar, [facility] [address] [id number] [address] [place] [address], [place] [id number] Mar, [facility] [address] [id number] [address] [place] [address], [place] [id number] Feb, [facility] [address] [id number] [address] [place] [address], [place] [id number] Feb, [facility] [address] [id number] [address] [place] [address], [place] [address] Feb, [facility] [address] [id number] [address] [place] [address], [place] [address] Jan, [facility] [address] [id number] [address] [place] [address], [place] [id number] Nov, [facility] [address] [id number] [address] [place] [address], [place] [id number] Sep, [facility] [address] [id number] [address] [place] [id number] 15 Sep, 2011 [facility] [address] [id number] [address] [place] [address], [place] [id number] Sep, [facility] [address] [id number] [address] [place] [id number] Aug, [facility] [address] [id number] [address] [place] [id number] Aug, [facility] [address] [id number] [address] [place] [id number] Aug, [facility] [address] [id number] [address] [place] [id number] Jun, [facility] [address] [id number] [address] [place] [id number] Jun, [facility] [address] [id number] [address] [place] [id number] Jun, [facility] [address] [id number] [address] [place] [id number] Jun, [facility] [address] [id number] [address] [place] [id number] May, [facility] [address] [id number] [address] [place] [id number] May, [facility] [address] [id number] [address] [place] [id number] May, [facility] [address] [id number] [address] [place] [id number] May, [facility] [address] [id number] [address] [place] [id number] Jun, [facility] [address] [id number] [address] [place] [id number] December, [facility] [address] [id number] [address] [place] [id number] May, IMMUNIZATIONS No Known Immunizations SOCIAL HISTORY Never Assessed REASON FOR VISIT EMR-[facility] PLAN OF CARE VITAL SIGNS MEDICATIONS No [...]
--- OUTSIDE RECORDS SUMMARY | 2020-03-17 19:17 | XMS REPORT ---
Author Author Ann Whitley Doctor Organization [facility] Address Unknown Phone Unavailable Care Team Providers Care Registered Nurse Surgical Services Name Role Phone Migration, Doctor Unavailable Unavailable PROBLEMS Type Condition ICD9-CM Code [id number] Code Onset Dates Condition S tatus SNOMED Code Problem Perimenopausal N95.1 Active 58555 [id number] Problem Seasonal allergic rhinitis, unspecified allergic rhinitis trigger J30.2 Active 096618313 Problem Chronic migraine G43.709 Active 377 95683 Problem Anxiety F41.9 Active 90600742 Problem Vitamin D deficiency E55.9 Active 69963949 Problem Essential hypertension I10 Active 52444440 Problem Iron deficiency anemia, unspecified iron deficiency an emia type D50.9 Active 23875566 Problem Carpal tunnel syndrome, bilateral G56.03 Active [id number] Problem Daytime hypersomnia G47.19 Active [id number] Problem Nocturnal dyspnea R06.00 Active 24 0599071 ALLERGIES No Information ENCOUNTERS Encounter Location Date Diagnosis [place] [address] [address] Apr, Chronic migraine G43.709 ; E ssential hypertension I10 ; Iron deficiency anemia, unspecified iron deficiency anemia type D50.9 and Long-term use of high-risk medication Z79.899 [place] [address] [address] [place] [id number] [place] [address] Feb, Seasonal allergic rhinitis, unspecified allergic rhinitis trigger J30.2 and Chronic migraine G43.709 [place] [address] [address] [place] [id number] [address] [place] [address] Feb, Anxiety F41.9 [place] [address] [address] Feb, Exposure to pertussis Z20.81 8 [place] [address] [address] Jan, [facility] [address] [facility] [id number] [address] [place] [address] Jan, Chronic migraine G43.709 and Anxiety F41.9 [facility] [address] [facility] [id number] [address] [place] [address] December, Anxiety F41.9 [place] [address] [address] [place] [id number] [address] [place] [address] Nov, Chronic migraine G43.709 ; S easonal allergic rhinitis, unspecified allergic rhinitis trigger J30.2 ; Vitamin D deficiency E55.9 ; Nocturnal dyspnea R06.00 ; Daytime hypersomnia G47.19 and Anxiety F41.9 [place] [address] [facility] [id number] [address] [place] [address] Nov, Chronic migraine G43.709 [place] [id number] [place] [address] Oct, [place] [address] [facility] [id number] [address] [place] [address] Sep, Carpal tunnel syndrome, bila teral G56.03 [place] [address] [address] [place] [id number] [address] [place] [address] Sep, Chronic migraine G43.709 [place] [address] [address] [place] [id number] [address] [place] [address] Aug, [place] [address] [facility] [id number] [address] [place] [address] Jul, Seasonal allergic rhinitis, unspecified allergic rhinitis trigger J30.2 [place] [address] [facility] [id number] [address] [place] [address] Jul, Seasonal allergic rhinitis, unspecified allergic rhinitis trigger J30.2 [place] [address] [facility] [id number] [address] [place] [address] Jul, Chronic migraine G43.709 [place] [address] [facility] [id number] [address] [place] [address] 13 Jun, 2017 [facility] [address] [id number] [address] [place] [id number] May, Dental caries K02.9 [facility] [address] [facility] [id number] [address] [place] [address] 12 May, 2017 Chronic migraine G43.709 [place] [address] [facility] [id number] [address] [place] [address] Apr, Chronic migraine G43.709 ; I yvette deficiency anemia, unspecified iron deficiency anemia type D50.9 ; Perimenopausal N95.1 and Vitamin D deficiency E55.9 [place] [address] [facility] [id number] [address] [place] [address] Mar, [place] [address] [facility] [id number] [place] [address] Mar, Seasonal allergic rhinitis, unspecified allergic rhinitis trigger J30.2 [facility] [address] [place] [id number] [address] [place] [address] Mar, Chronic migraine G43.709 [place] [address] [place] [id number] [address] [place] [address] Mar, [facility] [address] [facility] [id number] [address] [place] [address] Mar, Chronic migraine G43.709 ; I rregular menses N92.6 ; Iron deficiency anemia, unspecified iron deficiency anemia type D50.9 and General medical exam Z00.00 [facility] [address] [facility] [id number] [address] [place] [address] Mar, Chronic migraine G43.709 ; I yvette deficiency anemia, unspecified iron deficiency anemia type D50.9 ; Irregular menses N92.6 and General medical exam Z00.00 [facility] [address] [id number] [address] [place] [address] [id number] Feb, Dental examination Z01.20 [facility] [address] [id number] [address] [place] [address] 18 Feb, 2017 Chronic tension-type headach e, 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 and Seasonal allergic rhinitis, unspecified allergic rhinitis trigger J30.2 [facility] [address] [id number] [address] [place] [address] Feb, [facility] [address] [facility] [id number] [address] [place] [address] Jan, Seasonal allergic rhinitis, unspecified allergic rhinitis trigger J30.2 [facility] [address] [id number] [address] [place] [address] December, Chronic tension-type headach e, 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 [facility] [address] [id number] [address] [place] [address] [id number] December, Dental examination Z01.20 [facility] [address] [facility] [id number] [address] [place] [address] December, [facility] [address] [facility] [id number] [address] [place] [address] Oct, [facility] [address] [facility] [id number] [address] [place] [address] Oct, [facility] [address] [facility] [id number] [address] [place] [address] Oct, Sore throat J02.9 and Season al allergic rhinitis, unspecified allergic rhinitis trigger J30.2 [facility] [address] [id number] [address] [place] [address] Oct, [facility] [address] [facility] [id number] [address] [place] [address] Sep, [facility] [address] [facility] [id number] [address] [place] [address] Aug, Menstrual periods irregular N92.6 ; Chronic tension-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, 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 ; Acute upper respiratory infection, unspecified J06.9 and Other viral agents as the cause of diseases classified elsewhere B97.89 [facility] [address] [id number] [address] [place] [address] Jul, [facility] [address] [id number] [address] [place] [address] Jul, [facility] [address] [id number] [address] [place] [address] Jul, Migraine without aura and wi thout status migrainosus, not intractable G43.009 [facility] [address] [id number] [address] [place] [address] Jun, [facility] [address] [id number] [address] [place] [address] May, Migraine without aura and wi thout status migrainosus, not intractable G43.009 [facility] [address] [id number] [address] [place] [address] May, [facility] [address] [id number] [address] [place] [address] May, [facility] [address] [id number] [address] [place] [address] [id number] Mar, Dental examination Z01.20 [facility] [address] [id number] [address] [place] [address] Mar, [facility] [address] [id number] [address] [place] [address] Jan, Onychomycosis B35.1 [facility] [address] [id number] [address] [place] [address] Jan, [facility] [address] [id number] [address] [place] [address] December, Dental caries K02.9 [facility] [address] [id number] [address] [place] [address] Nov, Dental examination Z01.20 [facility] [address] [facility] [id number] [address] [place] [address] Oct, Dental examination Z01.20 [facility] [address] [facility] [id number] [address] [place] [address] Oct, [facility] [address] [place] [id number] [address] [place] [address] Oct, Migraine G43.909 [facility] [address] [place] [id number] [address] [place] [address] Sep, Onychomycosis B35.1 [facility] [address] [facility] [id number] [address] [place] [address] Sep, [facility] [address] [place] [id number] [address] [place] [address] Aug, [facility] [address] [address] Jul, [facility] [address] [place] [id number] [address] [place] [address] Apr, [facility] [address] [address] 10 Apr, 2015 Right anterior knee pain 719 .46 [facility] [address] [address] Mar, Tendonitis 726.90 ; HTN (hyp ertension) 401.9 ; Tremors of nervous system 781.0 and Anxiety 300.00 [facility] [address] [place] [id number] [address] [place] [address] Mar, Thrush 112.0 [facility] [address] [place] [id number] [address] [place] [address] Feb, [facility] [address] [place] [id number] [address] [place] [address] 08 Feb, 2015 Tremors of nervous system 78 1.0 and Carpal tunnel syndrome 354.0 [facility] [address] [id number] [address] [place] [address] Jan, Anxiety 300.00 ; Tremors of nervous system 781.0 and Tendonitis 726.90 [facility] [address] [facility] [id number] [address] [place] [address] Jan, Anxiety 300.00 ; Tremors of nervous system 781.0 and Tendonitis 726.90 [facility] [address] [id number] [address] [place] [address] Jan, Sinusitis 473.9 [facility] [address] [id number] [address] [place] [address] December, [facility] [address] [id number] [address] [place] [address] December, [facility] [address] [id number] [address] [place] [address] December, [facility] [address] [id number] [address] [place] [address] December, [facility] [address] [id number] [address] [place] [address] December, [facility] [address] [facility] [id number] [address] [place] [address] Nov, [facility] [address] [facility] [id number] [address] [place] [address] Nov, [facility] [address] [id number] [address] [place] [address] Sep, [facility] [address] [id number] [address] [place] [address] Sep, [facility] [address] [facility] [id number] [address] [place] [address] Sep, [facility] [address] [facility] [id number] [address] [place] [address] Sep, [facility] [address] [id number] [address] [place] [address], [place] [address] Jul, [facility] [address] [id number] [address] [place] [address], [place] [address] Jul, [facility] [address] [id number] [address] [place] [address], [place] [address] Jul, [facility] [address] [id number] [address] [place] [address], [place] [address] Jul, [facility] [address] [id number] [address] [place] [address], [place] [address] Jul, [facility] [address] [id number] [address] [place] [address], [place] [address] Jul, [facility] [address] [id number] [address] [place] [address], [place] [address] Jul, [facility] [address] [id number] [address] [place] [address], [place] [address] Jul, [facility] [address] [id number] [address] [place] [address], [place] [address] Jul, [facility] [address] [id number] [address] [place] [address], [place] [address] Jul, [facility] [address] [id number] [address] [place] [address], [place] [address] Jun, [facility] [address] [id number] [address] [place] [address], [place] [address] Jun, [facility] [address] [id number] [address] [place] [address], [place] [address] Jun, [facility] [address] [id number] [address] [place] [address], [place] [address] Jun, [facility] [address] [id number] [address] [place] [address], [place] [address] May, [facility] [address] [id number] [address] [place] [address], [place] [address] May, [facility] [address] [id number] [address] [place] [address], [place] [address] 14 May, 2014 [facility] [address] [id number] [address] [place] [address], [place] [address] 14 May, 2014 [facility] [address] [id number] [address] [place] [address], [place] [address] 17 Apr, 2014 [facility] [address] [id number] [address] [place] [address], [place] [address] 17 Apr, 2013 [facility] [address] [id number] [address] [place] [address], [place] [address] 17 Apr, 2014 [facility] [address] [id number] [address] [place] [address], [place] [address] 17 Apr, 2014 [facility] [address] [id number] [address] [place] [address], [place] [address] 16 Apr, 2014 [facility] [address] [id number] [address] [place] [address], [place] [address] 16 Apr, 2014 [facility] [address] [id number] [address] [place] [address], [place] [address] Apr, [facility] [address] [id number] [address] [place] [address], [place] [address] Apr, [facility] [address] [id number] [address] [place] [address], [place] [address] Mar, [facility] [address] [id number] [address] [place] [address], [place] [address] Mar, [facility] [address] [id number] [address] [place] [address], [place] [address] Feb, [facility] [address] [id number] [address] [place] [address], [place] [address] Feb, [facility] [address] [id number] [address] [place] [address], [place] [address] Feb, [facility] [address] [id number] [address] [place] [address], [place] [address] Feb, [facility] [address] [id number] [address] [place] [address], [place] [address] Jan, [facility] [address] [id number] [address] [place] [address], [place] [address] Jan, [facility] [address] [id number] [address] [place] [address], [place] [address] Jan, [facility] [address] [id number] [address] [place] [address], [place] [address] Jan, [facility] [address] [id number] [address] [place] [address], [place] [address] Jan, [facility] [address] [id number] [address] [place] [address], [place] [address] Jan, [facility] [address] [id number] [address] [place] [address], [place] [address] December, [facility] [address] [id number] [address] [place] [address], [place] [address] December, [facility] [address] [id number] [address] [place] [address], [place] [address] December, [facility] [address] [id number] [address] [place] [address], [place] [address] December, [facility] [address] [id number] [address] [place] [address], [place] [address] December, [facility] [address] [id number] [address] [place] [address], [place] [address] Nov, [facility] [address] [id number] [address] [place] [address], [place] [address] Nov, [facility] [address] [id number] [address] [place] [address], [place] [address] Nov, [facility] [address] [id number] [address] [place] [address], [place] [address] Nov, [facility] [address] [id number] [facility] [address] Nov, [facility] [address] [id number] [address] [place] [address], [place] [address] Nov, [facility] [address] [id number] [address] [place] [address], [place] [address] Oct, [facility] [address] [id number] [address] [place] [address], [place] [address] Oct, [facility] [address] [id number] [address] [place] [address], [place] [address] Oct, [facility] [address] [id number] [address] [place] [address], [place] [address] Oct, [facility] [address] [id number] [address] [place] [address], [place] [address] Sep, [facility] [address] [id number] [address] [place] [address], [place] [address] 14 Sep, 2013 [facility] [address] [id number] [address] [place] [address], [place] [address] 10 Sep, 2013 [facility] [address] [id number] [address] [place] [address], [place] [address] 10 Sep, 2013 [facility] [address] [id number] [address] [place] [address], [place] [address] Sep, [facility] [address] [id number] [address] [place] [address], [place] [address] Sep, [facility] [address] [id number] [address] [place] [address], [place] [address] Sep, [facility] [address] [id number] [address] [place] [address], [place] [address] 05 Sep, 2013 [facility] [address] [id number] [address] [place] [address], [place] [address] 05 Sep, 2013 [facility] [address] [id number] [address] [place] [address], [place] [address] Sep, [facility] [address] [id number] [address] [place] [address], [place] [address] Sep, [facility] [address] [id number] [address] [place] [address], [place] [address] Sep, [facility] [address] [id number] [address] [place] [address], [place] [address] Sep, [facility] [address] [id number] [address] [place] [address], [place] [address] Aug, [facility] [address] [id number] [address] [place] [address], [place] [address] Aug, [facility] [address] [id number] [address] [place] [address], [place] [address] Jul, [facility] [address] [id number] [address] [place] [address], [place] [address] Jul, [facility] [address] [id number] [address] [place] [address], [place] [address] Jun, [facility] [address] [id number] [address] [place] [address], [place] [address] Jun, [facility] [address] [id number] [address] [place] [address], [place] [address] May, [facility] [address] [id number] [address] [place] [address], [place] [address] Apr, [facility] [address] [id number] [address] [place] [address], [place] [address] Mar, [facility] [address] [id number] [address] [place] [address], [place] [address] Jan, [facility] [address] [id number] [address] [place] [address], [place] [address] December, [facility] [address] [id number] [address] [place] [address], [place] [address] December, [facility] [address] [id number] [address] [place] [address], [place] [address] Oct, [facility] [address] [id number] [address] [place] [address], [place] [address] Oct, [facility] [address] [id number] [address] [place] [address], [place] [address] Sep, [facility] [address] [id number] [address] [place] [address], [place] [address] Aug, [facility] [address] [id number] [address] [place] [address], [place] [address] Aug, [facility] [address] [id number] [address] [place] [address], [place] [address] Jul, [facility] [address] [id number] [address] [place] [address], [place] [address] Jul, [facility] [address] [id number] [address] [place] [address], [place] [address] Mar, [facility] [address] [id number] [address] [place] [address], [place] [address] Mar, [facility] [address] [id number] [address] [place] [address], [place] [address] Feb, [facility] [address] [id number] [address] [place] [address], [place] [address] Feb, [facility] [address] [id number] [address] [place] [address], [place] [address] Feb, [facility] [address] [id number] [address] [place] [address], [place] [address] Jan, [facility] [address] [id number] [address] [place] [address], [place] [address] Nov, [facility] [address] [id number] [address] [place] [address], [place] [address] Sep, [facility] [address] [id number] [address] [place] [id number] 15 Sep, 2011 [facility] [address] [id number] [address] [place] [address], [place] [address] Sep, [facility] [address] [id number] [address] [place] [id number] Aug, [facility] [address] [id number] [address] [place] [address] [id number] Aug, [facility] [address] [id number] [address] [place] [id number] Aug, [facility] [address] [id number] [address] [place] [phone] Jun, [facility] [address] [id number] [address] [place] [id number] Jun, [facility] [address] [id number] [address] [place] [id number] Jun, [facility] [address] [id number] [address] [place] [id number] Jun, [facility] [address] [id number] [address] [place] [phone] May, [facility] [address] [id number] [address] [place] [id number] May, [facility] [address] [id number] [address] [place] [phone] May, [facility] [address] [id number] [address] [place] [id number] May, [facility] [address] [id number] [address] [place] [phone] Jun, [facility] [address] [id number] [address] [place] [id number] December, [facility] [address] [id number] [address] [place] [phone] May, IMMUNIZATIONS No Known Immunizations SOCIAL HISTORY Never Assessed REASON FOR VISIT [facility] [place] PLAN OF CARE VITAL SIGNS MEDICATIONS Medication Instructions Dosage Frequency Start Date End Date Duration S tatus Xyzal 5 mg take 1 tablet by Oral route 1 time per day Mar, Active Bactroban 2 % 1 agueda by Topical route 2 times per day f or 14 day(s) Sep, Active Fioricet 50-300-40 mg take 1 - 2 capsule s by oral route every 4 hours as needed not to exceed 6 capsules per 24hrs Sep, Active promethazine 25 mg 1 tablet by Oral route every 6 hours PRN Jul, Active amitriptyline 50 mg take 1 tablet (50 mg) by ora l route once daily at bedtime Sep, Active Baclofen 20 mg take 1 tablet (20 mg) by oral route 3 t imes per day PRN Apr, Active Xanax 1 mg 1 tablet by Oral route 2 times per day PRN Apr, Active Ferrous Sulfate 325 mg (65 mg iron) 1 Ta blet by Oral route 2 times per day give with food Apr, Active Azithromycin 250 mg 2 Tablet by Oral rou te 1 time per day for 1 days then 1 daily x 7 days to total 8 days Jun, Active Promethazine-Codeine 6.25-10 mg/5 mL edel e 5 mL by Oral route every 4 hours for 5 day(s)take at bedtime Aug, Acti ve ProAir HFA 90 mcg/actuation inhale 2 puf fs by inhalation route every 6 hours PRN shortness of breath/cough Jul, Active Flonase 50 mcg/actuation take 1 sprays b y Nasal route 1 time per day in each nostril Sep, Active PredniSONE 10 mg 1 Tablet by Oral rou te 2 times per day for 5 days Take at 8 am and noon. Jun, Active Bactrim DS 800-160 mg 1 tablet by Oral route 2 times p er day for 10 day(s) Jun, Active Amoxicillin 500 mg 1 capsule by Oral route 3 times per day for 14 days Jul, Active Clindamycin HCl 300 mg 1 capsule by Oral route every 8 hours for 10 day(s) Sep, Active RESULTS No Results PROCEDURES No Known procedures [...]
--- OUTSIDE RECORDS SUMMARY | 2020-03-17 19:18 | XMS REPORT ---
Author Author Ann Whitley Doctor Organization [facility] Address Unknown Phone Unavailable Care Team Providers Care Bar Back Name Role Phone Migration, Doctor Unavailable Unavailable PROBLEMS Type Condition ICD9-CM Code OGC20-PT Code Onset Dates Condition S tatus SNOMED Code Problem Perimenopausal N95.1 Active 31451 [id number] Problem Seasonal allergic rhinitis, unspecified allergic rhinitis trigger J30.2 Active 300271300 Problem Chronic migraine G43.709 Active 377 12683 Problem Anxiety F41.9 Active 86954726 Problem Vitamin D deficiency E55.9 Active 35004673 Problem Essential hypertension I10 Active 17315497 Problem Iron deficiency anemia, unspecified iron deficiency an emia type D50.9 Active 32055815 Problem Carpal tunnel syndrome, bilateral G56.03 Active [id number] Problem Daytime hypersomnia G47.19 Active 19667488837584 Problem Nocturnal dyspnea R06.00 Active 24 0377103 ALLERGIES No Information ENCOUNTERS Encounter Location Date Diagnosis [place] [address] [address] Apr, Chronic migraine G43.709 ; E ssential hypertension I10 ; Iron deficiency anemia, unspecified iron deficiency anemia type D50.9 and Long-term use of high-risk medication Z79.899 [place] [address] [address] [place] [id number] [address] [place] [address] Feb, Seasonal allergic rhinitis, unspecified allergic rhinitis trigger J30.2 and Chronic migraine G43.709 [place] [address] [address] [place] [id number] [address] [place] [address] Feb, Anxiety F41.9 [place] [address] [address] Feb, Exposure to pertussis Z20.81 8 [place] [address] [address] Jan, [facility] [address] [facility] [id number] [address] [place] [address] Jan, Chronic migraine G43.709 and Anxiety F41.9 [facility] [address] [facility] [id number] [address] [place] [address] December, Anxiety F41.9 [place] [address] [address] [place] [id number] [address] [place] [address] Nov, Chronic migraine G43.709 ; S easonal allergic rhinitis, unspecified allergic rhinitis trigger J30.2 ; Vitamin D deficiency E55.9 ; Nocturnal dyspnea R06.00 ; Daytime hypersomnia G47.19 and Anxiety F41.9 [place] [address] [facility] [id number] [address] [place] [address] Nov, Chronic migraine G43.709 [place] [id number] [place] [address] Oct, [place] [address] [facility] [id number] [address] [place] [address] Sep, Carpal tunnel syndrome, bila teral G56.03 [place] [address] [place] [id number] [address] [place] [address] Sep, Chronic migraine G43.709 [place] [address] [address] [place] [id number] [address] [place] [address] Aug, [place] [address] [facility] [id number] [address] [place] [address] Jul, Seasonal allergic rhinitis, unspecified allergic rhinitis trigger J30.2 [place] [address] [facility] [id number] [address] [place] [address] Jul, Seasonal allergic rhinitis, unspecified allergic rhinitis trigger J30.2 [place] [address] [facility] [id number] [address] [place] [address] Jul, Chronic migraine G43.709 [place] [address] [facility] [id number] [address] [place] [address] 13 Jun, 2017 [facility] [address] [id number] [address] [place] [id number] May, Dental caries K02.9 [facility] [address] [facility] [id number] [address] [place] [address] 12 May, 2017 Chronic migraine G43.709 [place] [address] [facility] [id number] [address] [place] [address] Apr, Chronic migraine G43.709 ; I yvette deficiency anemia, unspecified iron deficiency anemia type D50.9 ; Perimenopausal N95.1 and Vitamin D deficiency E55.9 [place] [address] [facility] [id number] [address] [place] [address] Mar, [place] [address] [facility] [id number] [place] [phone] Mar, Seasonal allergic rhinitis, unspecified allergic rhinitis trigger J30.2 [facility] [address] [place] [id number] [address] [place] [address] Mar, Chronic migraine G43.709 [place] [id number] [address] [place] [address] Mar, [facility] [address] [facility] [id number] [address] [place] [address] Mar, Chronic migraine G43.709 ; I rregular menses N92.6 ; Iron deficiency anemia, unspecified iron deficiency anemia type D50.9 and General medical exam Z00.00 [facility] [address] [facility] [id number] [address] [place] [address] Mar, Chronic migraine G43.709 ; I yvette deficiency anemia, unspecified iron deficiency anemia type D50.9 ; Irregular menses N92.6 and General medical exam Z00.00 [facility] [address] [id number] [address] [place] [id number] Feb, Dental examination Z01.20 [facility] [address] [id number] [address] [place] [phone] 18 Feb, 2017 Chronic tension-type headach e, 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 and Seasonal allergic rhinitis, unspecified allergic rhinitis trigger J30.2 [facility] [address] [id number] [address] [place] [phone] Feb, [facility] [address] [facility] [id number] [address] [place] [address] Jan, Seasonal allergic rhinitis, unspecified allergic rhinitis trigger J30.2 [facility] [address] [id number] [address] [place] [address] December, Chronic tension-type headach e, 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 [facility] [address] [id number] [address] [place] [address] [id number] December, Dental examination Z01.20 [facility] [address] [facility] [id number] [address] [place] [address] December, [facility] [address] [facility] [id number] [address] [place] [phone] Oct, [facility] [address] [facility] [id number] [address] [place] [phone] Oct, [facility] [address] [facility] [id number] [address] [place] [phone] Oct, Sore throat J02.9 and Season al allergic rhinitis, unspecified allergic rhinitis trigger J30.2 [facility] [address] [id number] [address] [place] [address] Oct, [facility] [address] [facility] [id number] [address] [place] [address] Sep, [facility] [address] [facility] [id number] [address] [place] [phone] Aug, Menstrual periods irregular N92.6 ; Chronic tension-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, 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 ; Acute upper respiratory infection, unspecified J06.9 and Other viral agents as the cause of diseases classified elsewhere B97.89 [facility] [address] [id number] [address] [place] [phone] Jul, [facility] [address] [id number] [address] [place] [phone] Jul, [facility] [address] [id number] [address] [place] [phone] Jul, Migraine without aura and wi thout status migrainosus, not intractable G43.009 [facility] [address] [id number] [address] [place] [phone] Jun, [facility] [address] [id number] [address] [place] [address] May, Migraine without aura and wi thout status migrainosus, not intractable G43.009 [facility] [address] [id number] [address] [place] [address] May, [facility] [address] [id number] [address] [place] [address] May, [facility] [address] [id number] [address] [place] [id number] Mar, Dental examination Z01.20 [facility] [address] [id number] [address] [place] [address] Mar, [facility] [address] [id number] [address] [place] [phone] Jan, Onychomycosis B35.1 [facility] [address] [id number] [address] [place] [phone] Jan, [facility] [address] [id number] [address] [place] [address] December, Dental caries K02.9 [facility] [address] [id number] [address] [place] [address] Nov, Dental examination Z01.20 [facility] [address] [facility] [id number] [address] [place] [address] Oct, Dental examination Z01.20 [facility] [address] [facility] [id number] [address] [place] [address] Oct, [facility] [address] [place] [id number] [address] [place] [address] Oct, Migraine G43.909 [facility] [address] [place] [id number] [address] [place] [phone] Sep, Onychomycosis B35.1 [facility] [address] [facility] [id number] [address] [place] [phone] Sep, [facility] [address] [place] [id number] [address] [place] [phone] Aug, [facility] [address] [id number] Jul, [facility] [address] [place] [id number] [address] [place] [address] Apr, [facility] [address] [id number] 10 Apr, 2015 Right anterior knee pain 719 .46 [facility] [address] [address] Mar, Tendonitis 726.90 ; HTN (hyp ertension) 401.9 ; Tremors of nervous system 781.0 and Anxiety 300.00 [facility] [address] [place] [id number] [address] [place] [address] Mar, Thrush 112.0 [facility] [address] [place] [id number] [address] [place] [address] Feb, [facility] [address] [place] [id number] [address] [place] [phone] 08 Feb, 2015 Tremors of nervous system 78 1.0 and Carpal tunnel syndrome 354.0 [facility] [address] [id number] [address] [place] [address] Jan, Anxiety 300.00 ; Tremors of nervous system 781.0 and Tendonitis 726.90 [facility] [address] [facility] [id number] [address] [place] [address] Jan, Anxiety 300.00 ; Tremors of nervous system 781.0 and Tendonitis 726.90 [facility] [address] [id number] [address] [place] [address] Jan, Sinusitis 473.9 [facility] [address] [id number] [address] [place] [phone] December, [facility] [address] [id number] [address] [place] [phone] December, [facility] [address] [id number] [address] [place] [phone] December, [facility] [address] [id number] [address] [place] [phone] December, [facility] [address] [id number] [address] [place] [phone] December, [facility] [address] [facility] [id number] [address] [place] [phone] Nov, [facility] [address] [facility] [id number] [address] [place] [phone] Nov, [facility] [address] [id number] [address] [place] [phone] Sep, [facility] [address] [id number] [address] [place] [phone] Sep, [facility] [address] [facility] [id number] [address] [place] [phone] Sep, [facility] [address] [facility] [id number] [address] [place] [phone] Sep, [facility] [address] [id number] [address] [place] [address], [place] [address] Jul, [facility] [address] [id number] [address] [place] [address], [place] [address] Jul, [facility] [address] [id number] [address] [place] [address], [place] [address] Jul, [facility] [address] [id number] [address] [place] [address], [place] [address] Jul, [facility] [address] [id number] [address] [place] [address], [place] [address] Jul, [facility] [address] [id number] [address] [place] [address], [place] [address] Jul, [facility] [address] [id number] [address] [place] [address], [place] [address] Jul, [facility] [address] [id number] [address] [place] [address], [place] [address] Jul, [facility] [address] [id number] [address] [place] [address], [place] [address] Jul, [facility] [address] [id number] [address] [place] [address], [place] [address] Jul, [facility] [address] [id number] [address] [place] [address], [place] [address] Jun, [facility] [address] [id number] [address] [place] [address], [place] [address] Jun, [facility] [address] [id number] [address] [place] [address], [place] [address] Jun, [facility] [address] [id number] [address] [place] [address], [place] [address] Jun, [facility] [address] [id number] [address] [place] [address], [place] [address] May, [facility] [address] [id number] [address] [place] [address], [place] [address] May, [facility] [address] [id number] [address] [place] [address], [place] [address] 14 May, 2014 [facility] [address] [id number] [address] [place] [address], [place] [address] 14 May, 2014 [facility] [address] [id number] [address] [place] [address], [place] [address] 17 Apr, 2014 [facility] [address] [id number] [address] [place] [address], [place] [address] 17 Apr, 2013 [facility] [address] [id number] [address] [place] [address], [place] [address] 17 Apr, 2014 [facility] [address] [id number] [address] [place] [address], [place] [address] 17 Apr, 2014 [facility] [address] [id number] [address] [place] [address], [place] [address] 16 Apr, 2014 [facility] [address] [id number] [address] [place] [address], [place] [address] 16 Apr, 2014 [facility] [address] [id number] [address] [place] [address], [place] [address] Apr, [facility] [address] [id number] [address] [place] [address], [place] [address] Apr, [facility] [address] [id number] [address] [place] [address], [place] [address] Mar, [facility] [address] [id number] [address] [place] [address], [place] [address] Mar, [facility] [address] [id number] [address] [place] [address], [place] [address] Feb, [facility] [address] [id number] [address] [place] [address], [place] [address] Feb, [facility] [address] [id number] [address] [place] [address], [place] [address] Feb, [facility] [address] [id number] [address] [place] [address], [place] [address] Feb, [facility] [address] [id number] [address] [place] [address], [place] [address] Jan, [facility] [address] [id number] [address] [place] [address], [place] [address] Jan, [facility] [address] [id number] [address] [place] [address], [place] [address] Jan, [facility] [address] [id number] [address] [place] [address], [place] [address] Jan, [facility] [address] [id number] [address] [place] [address], [place] [address] Jan, [facility] [address] [id number] [address] [place] [address], [place] [address] Jan, [facility] [address] [id number] [address] [place] [address], [place] [address] December, [facility] [address] [id number] [address] [place] [address], [place] [address] December, [facility] [address] [id number] [address] [place] [address], [place] [address] December, [facility] [address] [id number] [address] [place] [address], [place] [address] December, [facility] [address] [id number] [address] [place] [address], [place] [address] December, [facility] [address] [id number] [address] [place] [address], [place] [address] Nov, [facility] [address] [id number] [address] [place] [address], [place] [address] Nov, [facility] [address] [id number] [address] [place] [address], [place] [address] Nov, [facility] [address] [id number] [address] [place] [address], [place] [address] Nov, [facility] [address] [id number] [facility] [place] [address] Nov, [facility] [address] [id number] [address] [place] [address], [place] [address] Nov, [facility] [address] [id number] [address] [place] [address], [place] [address] Oct, [facility] [address] [id number] [address] [place] [address], [place] [address] Oct, [facility] [address] [id number] [address] [place] [address], [place] [address] Oct, [facility] [address] [id number] [address] [place] [address], [place] [address] Oct, [facility] [address] [id number] [address] [place] [address], [place] [address] Sep, [facility] [address] [id number] [address] [place] [address], [place] [address] 14 Sep, 2013 [facility] [address] [id number] [address] [place] [address], [place] [address] 10 Sep, 2013 [facility] [address] [id number] [address] [place] [address], [place] [address] 10 Sep, 2013 [facility] [address] [id number] [address] [place] [address], [place] [address] Sep, [facility] [address] [id number] [address] [place] [address], [place] [address] Sep, [facility] [address] [id number] [address] [place] [address], [place] [address] Sep, [facility] [address] [id number] [address] [place] [address], [place] [address] 05 Sep, 2013 [facility] [address] [id number] [address] [place] [address], [place] [address] 05 Sep, 2013 [facility] [address] [id number] [address] [place] [address], [place] [address] Sep, [facility] [address] [id number] [address] [place] [address], [place] [address] Sep, [facility] [address] [id number] [address] [place] [address], [place] [address] Sep, [facility] [address] [id number] [address] [place] [address], [place] [address] Sep, [facility] [address] [id number] [address] [place] [address], [place] [address] Aug, [facility] [address] [id number] [address] [place] [address], [place] [address] Aug, [facility] [address] [id number] [address] [place] [address], [place] [address] Jul, [facility] [address] [id number] [address] [place] [address], [place] [address] Jul, [facility] [address] [id number] [address] [place] [address], [place] [address] Jun, [facility] [address] [id number] [address] [place] [address], [place] [address] Jun, [facility] [address] [id number] [address] [place] [address], [place] [address] May, [facility] [address] [id number] [address] [place] [address], [place] [address] Apr, [facility] [address] [id number] [address] [place] [address], [place] [address] Mar, [facility] [address] [id number] [address] [place] [address], [place] [address] Jan, [facility] [address] [id number] [address] [place] [address], [place] [address] December, [facility] [address] [id number] [address] [place] [address], [place] [address] December, [facility] [address] [id number] [address] [place] [address], [place] [address] Oct, [facility] [address] [id number] [address] [place] [address], [place] [address] Oct, [facility] [address] [id number] [address] [place] [address], [place] [address] Sep, [facility] [address] [id number] [address] [place] [address], [place] [address] Aug, [facility] [address] [id number] [address] [place] [address], [place] [address] Aug, [facility] [address] [id number] [address] [place] [address], [place] [address] Jul, [facility] [address] [id number] [address] [place] [address], [place] [address] Jul, [facility] [address] [id number] [address] [place] [address], [place] [address] Mar, [facility] [address] [id number] [address] [place] [address], [place] [address] Mar, [facility] [address] [id number] [address] [place] [address], [place] [address] Feb, [facility] [address] [id number] [address] [place] [address], [place] [address] Feb, [facility] [address] [id number] [address] [place] [address], [place] [address] Feb, [facility] [address] [id number] [address] [place] [address], [place] [address] Jan, [facility] [address] [id number] [address] [place] [address], [place] [address] Nov, [facility] [address] [id number] [address] [place] [address], [place] [address] Sep, [facility] [address] [id number] [address] [place] [id number] 15 Sep, 2011 [facility] [address] [id number] [address] [place] [address], [place] [address] Sep, [facility] [address] [id number] [address] [place] [id number] Aug, [facility] [address] [id number] [address] [place] [id number] Aug, [facility] [address] [id number] [address] [place] [id number] Aug, [facility] [address] [id number] [address] [place] [place] [id number] Jun, [facility] [address] [id number] [address] [place] [phone] Jun, [facility] [address] [id number] [address] [place] [phone] Jun, [facility] [address] [id number] [address] [place] [phone] Jun, [facility] [address] [id number] [address] [place] [phone] May, [facility] [address] [id number] [address] [place] [phone] May, [facility] [address] [id number] [address] [place] [phone] May, [facility] [address] [id number] [address] [place] [phone] May, [facility] [address] [id number] [address] [place] [phone] Jun, [facility] [address] [id number] [address] [place] [phone] December, [facility] [address] [id number] [address] [place] [phone] May, IMMUNIZATIONS No Known Immunizations SOCIAL HISTORY Never Assessed REASON FOR VISIT EMR-[facility] [place] OF CARE VITAL SIGNS MEDICATIONS No [...]
--- OUTSIDE RECORDS SUMMARY | 2020-03-17 19:18 | XMS REPORT ---
Author Author Ann MONTANEZ [facility] Address [address] [place] [address] Care Team Providers Care Salt Operator Name Role Phone SHIVANI MONTANEZ Unavailable PROBLEMS Type Condition ICD9-CM Code [id number] Code Onset Dates Condition S tatus SNOMED Code Problem Perimenopausal N95.1 Active 59729 [id number] Problem Seasonal allergic rhinitis, unspecified allergic rhinitis trigger J30.2 Active 712664191 Problem HTN (hypertension) 401.9 Active 3 2413775 Problem Vitamin D deficiency E55.9 Active 58020283 Problem Anxiety F41.9 Active 89157332 Problem Nocturnal dyspnea R06.00 Active 24 9777018 Problem Iron deficiency anemia, unspecified iron deficiency an emia type D50.9 Active 81916088 Problem Chronic migraine G43.709 Active 377 67959 Problem Daytime hypersomnia G47.19 Active [id number] Problem Carpal tunnel syndrome, bilateral G56.03 Active [id number] ALLERGIES No Information ENCOUNTERS Encounter Location Date Diagnosis [place] [address] [place] [id number] [place] [address] Apr, [place] [address] [place] [id number] [place] [address] Feb, Seasonal allergic rhinitis, unspecified allergic rhinitis trigger J30.2 and Chronic migraine G43.709 [facility] [address] [id number] [address] [place] [address] Feb, Anxiety F41.9 [place] [address] [place] [id number] [place] [address] Feb, Exposure to pertussis Z20.81 8 [place] [address] [address] [id number] [place] [address] Jan, [facility] [address] [place] [address] Jan, Chronic migraine G43.709 and Anxiety F41.9 [facility] [address] [place] [address] December, Anxiety F41.9 [facility] [address] [address] Nov, Chronic migraine G43.709 ; S easonal allergic rhinitis, unspecified allergic rhinitis trigger J30.2 ; Vitamin D deficiency E55.9 ; Nocturnal dyspnea R06.00 ; Daytime hypersomnia G47.19 and Anxiety F41.9 [facility] [address] [address] Nov, Chronic migraine G43.709 [facility] [address] [id number] [place] [address] Oct, [facility] [address] [address] Sep, Carpal tunnel syndrome, bila teral G56.03 [facility] [address] [address] [id number] [place] [address] Sep, Chronic migraine G43.709 [facility] [address] [place] [address] Aug, [facility] [address] [place] [address] Jul, Seasonal allergic rhinitis, unspecified allergic rhinitis trigger J30.2 [facility] [address] [place] [address] Jul, Seasonal allergic rhinitis, unspecified allergic rhinitis trigger J30.2 [facility] [address] [place] [address] Jul, Chronic migraine G43.709 [facility] [address] [id number] [address] [place] [address] Jun, [facility] [address] [id number] [address] [place] [id number] May, Dental caries K02.9 [facility] [address] [facility] [id number] [address] [place] [address] 12 May, 2017 Chronic migraine G43.709 [place] [address] [facility] [id number] [address] [place] [address] Apr, Chronic migraine G43.709 ; I yvette deficiency anemia, unspecified iron deficiency anemia type D50.9 ; Perimenopausal N95.1 and Vitamin D deficiency E55.9 [place] [address] [facility] [id number] [address] [place] [address] Mar, [place] [address] [facility] [id number] [place] [address] Mar, Seasonal allergic rhinitis, unspecified allergic rhinitis trigger J30.2 [place] [address] [facility] [id number] [address] [place] [address] Mar, Chronic migraine G43.709 [place] [address] [facility] [id number] [address] [place] [address] Mar, [place] [address] [facility] [id number] [address] [place] [address] Mar, Chronic migraine G43.709 ; I rregular menses N92.6 ; Iron deficiency anemia, unspecified iron deficiency anemia type D50.9 and General medical exam Z00.00 [facility] [address] [facility] [id number] [address] [place] [address] Mar, Chronic migraine G43.709 ; I yvette deficiency anemia, unspecified iron deficiency anemia type D50.9 ; Irregular menses N92.6 and General medical exam Z00.00 [facility] [address] [id number] [address] [place] [address] [id number] Feb, Dental examination Z01.20 [facility] [address] [facility] [id number] [address] [place] [address] Feb, Chronic tension-type headach e, 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 and Seasonal allergic rhinitis, unspecified allergic rhinitis trigger J30.2 [facility] [address] [facility] [id number] [address] [place] [address] Feb, [facility] [address] [facility] [id number] [address] [place] [address] Jan, Seasonal allergic rhinitis, unspecified allergic rhinitis trigger J30.2 [facility] [address] [facility] [id number] [address] [place] [address] December, Chronic tension-type headach e, 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 [facility] [address] [facility] [id number] [address] [place] [address] [id number] December, Dental examination Z01.20 [facility] [address] [place] [id number] [place] [address] December, [facility] [address] [address] [id number] [address] [place] [address] Oct, [facility] [address] [id number] [place] [address] Oct, [facility] [address] [facility] [id number] [address] [place] [address] Oct, Sore throat J02.9 and Season al allergic rhinitis, unspecified allergic rhinitis trigger J30.2 [facility] [address] [address] [id number] [address] [place] [address] Oct, [facility] [address] [facility] [id number] [address] [place] [address] Sep, [facility] [address] [place] [id number] [address] [place] [address] Aug, Menstrual periods irregular N92.6 ; Chronic tension-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, 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 ; Acute upper respiratory infection, unspecified J06.9 and Other viral agents as the cause of diseases classified elsewhere B97.89 [facility] [address] [id number] [address] [place] [address] Jul, [facility] [address] [id number] [address] [place] [address] Jul, [facility] [address] [id number] [address] [place] [address] Jul, Migraine without aura and wi thout status migrainosus, not intractable G43.009 [facility] [address] [id number] [address] [place] [address] Jun, [facility] [address] [id number] [address] [place] [address] May, Migraine without aura and wi thout status migrainosus, not intractable G43.009 [facility] [address] [id number] [address] [place] [address] May, [facility] [address] [id number] [address] [place] [address] May, [facility] [address] [id number] [address] [place] [address] [id number] Mar, Dental examination Z01.20 [facility] [address] [id number] [address] [place] [address] Mar, [facility] [address] [id number] [address] [place] [address] Jan, Onychomycosis B35.1 [facility] [address] [id number] [address] [place] [address] Jan, [facility] [address] [id number] [address] [place] [address] December, Dental caries K02.9 [facility] [address] [id number] [address] [place] [address] Nov, Dental examination Z01.20 [facility] [address] [place] [id number] [place] [address] Oct, Dental examination Z01.20 [facility] [address] [place] [id number] [address] [place] [address] Oct, [facility] [address] [id number] [place] [address] Oct, Migraine G43.909 [facility] [address] [address] Sep, Onychomycosis B35.1 [facility] [address] [address] Sep, [facility] [address] [address] Aug, [facility] [address] [address] Jul, [facility] [address] [address] Apr, [facility] [address] [address] 10 Apr, 2015 Right anterior knee pain 719 .46 [facility] [address] [address] Mar, Tendonitis 726.90 ; HTN (hyp ertension) 401.9 ; Tremors of nervous system 781.0 and Anxiety 300.00 [facility] [address] [place] [id number] [place] [address] Mar, Thrush 112.0 [facility] [address] [address] Feb, [facility] [address] [address] Feb, Tremors of nervous system 78 1.0 and Carpal tunnel syndrome 354.0 [facility] [address] [place] [id number] [place] [address] [place] [address] Jan, Anxiety 300.00 ; Tremors of nervous system 781.0 and Tendonitis 726.90 [facility] [address] [id number] [address] [place] [address] Jan, Anxiety 300.00 ; Tremors of nervous system 781.0 and Tendonitis 726.90 [facility] [address] [id number] [address] [place] [address] Jan, Sinusitis 473.9 [facility] [address] [id number] [address] [place] [address] December, [facility] [address] [id number] [address] [place] [address] December, [facility] [address] [facility] [id number] [address] [place] [address] December, [facility] [address] [id number] [address] [place] [address] December, [facility] [address] [id number] [address] [place] [address] December, [facility] [address] [facility] [id number] [address] [place] [address] Nov, [facility] [address] [facility] [id number] [address] [place] [address] Nov, [facility] [address] [id number] [address] [place] [address] Sep, [facility] [address] [id number] [address] [place] [address] Sep, [facility] [address] [id number] [address] [place] [address] Sep, [facility] [address] [id number] [address] [place] [address] Sep, [facility] [address] [id number] [address] [place] [address] Jul, [facility] [address] [id number] [address] [place] [address], [place] [address] Jul, [facility] [address] [id number] [address] [place] [address], [place] [address] Jul, [facility] [address] [id number] [address] [place] [address], [place] [address] Jul, [facility] [address] [id number] [address] [place] [address], [place] [address] Jul, [facility] [address] [id number] [address] [place] [address], [place] [address] Jul, [facility] [address] [id number] [address] [place] [address], [place] [address] Jul, [facility] [address] [id number] [address] [place] [address], [place] [address] Jul, [facility] [address] [id number] [address] [place] [address], [place] [address] Jul, [facility] [address] [id number] [address] [place] [address], [place] [address] Jul, [facility] [address] [id number] [address] [place] [address], [place] [address] Jun, [facility] [address] [id number] [address] [place] [address], [place] [address] Jun, [facility] [address] [id number] [address] [place] [address], [place] [address] Jun, [facility] [address] [id number] [address] [place] [address], [place] [address] Jun, [facility] [address] [id number] [address] [place] [address], [place] [address] May, [facility] [address] [id number] [address] [place] [address], [place] [address] May, [facility] [address] [id number] [facility] [place] [address] 14 May, 2013 [facility] [address] [id number] [address] [place] [address], [place] [address] 14 May, 2014 [facility] [address] [id number] [address] [place] [address], [place] [address] 17 Apr, 2013 [facility] [address] [id number] [address] [place] [address], [place] [address] 17 Apr, 2013 [facility] [address] [id number] [address] [place] [address], [place] [address] 17 Apr, 2013 [facility] [address] [id number] [address] [place] [address], [place] [address] 17 Apr, 2013 [facility] [address] [id number] [address] [place] [address], [place] [address] 16 Apr, 2013 [facility] [address] [id number] [address] [place] [address], [place] [address] 16 Apr, 2013 [facility] [address] [id number] [address] [place] [address], [place] [address] 03 Apr, 2013 [facility] [address] [id number] [address] [place] [address], [place] [address] 03 Apr, 2014 [facility] [address] [id number] [address] [place] [address], [place] [address] Mar, [facility] [address] [id number] [address] [place] [address], [place] [address] Mar, [facility] [address] [id number] [address] [place] [address], [place] [address] Feb, [facility] [address] [id number] [address] [place] [address], [place] [address] Feb, [facility] [address] [id number] [address] [place] [address], [place] [address] Feb, [facility] [address] [id number] [address] [place] [address], [place] [address] Feb, [facility] [address] [id number] [facility] [place] [address] Jan, [facility] [address] [id number] [facility] [place] [address] Jan, [facility] [address] [id number] [address] [place] [address], [place] [address] Jan, [facility] [address] [id number] [address] [place] [address], [place] [address] Jan, [facility] [address] [id number] [address] [place] [address], [place] [address] Jan, [facility] [address] [id number] [address] [place] [address], [place] [address] Jan, [facility] [address] [id number] [address] [place] [address], [place] [address] December, [facility] [address] [id number] [address] [place] [address], [place] [address] December, [facility] [address] [id number] [address] [place] [address], [place] [address] December, [facility] [address] [id number] [address] [place] [address], [place] [address] December, [facility] [address] [id number] [address] [place] [address], [place] [address] December, [facility] [address] [id number] [address] [place] [address], [place] [address] Nov, [facility] [address] [id number] [address] [place] [address], [place] [address] Nov, [facility] [address] [id number] [address] [place] [address], [place] [address] Nov, [facility] [address] [id number] [address] [place] [address], [place] [address] Nov, [facility] [address] [id number] [address] [place] [address], [place] [address] Nov, [facility] [address] [id number] [address] [place] [address], [place] [address] Nov, [facility] [address] [id number] [address] [place] [address], [place] [address] Oct, [facility] [address] [id number] [address] [place] [address], [place] [address] Oct, [facility] [address] [id number] [address] [place] [address], [place] [address] Oct, [facility] [address] [id number] [address] [place] [address], [place] [address] Oct, [facility] [address] [id number] [address] [place] [address], [place] [address] 14 Sep, 2013 [facility] [address] [id number] [address] [place] [address], [place] [address] 14 Sep, 2013 [facility] [address] [id number] [address] [place] [address], [place] [address] 10 Sep, 2013 [facility] [address] [id number] [address] [place] [address], [place] [address] 10 Sep, 2013 [facility] [address] [id number] [address] [place] [address], [place] [address] 07 Sep, 2013 [facility] [address] [id number] [address] [place] [address], [place] [address] 06 Sep, 2013 [facility] [address] [id number] [address] [place] [address], [place] [address] 06 Sep, 2013 [facility] [address] [id number] [address] [place] [address], [place] [address] 05 Sep, 2013 [facility] [address] [id number] [address] [place] [address] 05 Sep, 2013 [facility] [address] [id number] [address] [place] [address], [place] [address] Sep, [facility] [address] [id number] [address] [place] [address], [place] [address] Sep, [facility] [address] [id number] [address] [place] [address], [place] [address] Sep, [facility] [address] [id number] [address] [place] [address], [place] [address] Sep, [facility] [address] [id number] [address] [place] [address], [place] [address] Aug, [facility] [address] [id number] [address] [place] [address], [place] [address] Aug, [facility] [address] [id number] [address] [place] [address], [place] [address] Jul, [facility] [address] [id number] [address] [place] [address], [place] [address] Jul, [facility] [address] [id number] [address] [place] [address], [place] [address] Jun, [facility] [address] [id number] [address] [place] [address], [place] [address] Jun, [facility] [address] [id number] [address] [place] [address], [place] [address] May, [facility] [address] [id number] [address] [place] [address] Apr, [facility] [address] [id number] [address] [place] [address] Mar, [facility] [address] [id number] [address] [place] [address], [place] [address] Jan, [facility] [address] [id number] [address] [place] [address], [place] [address] December, [facility] [address] [id number] [address] [place] [address], [place] [address] December, [facility] [address] [id number] [address] [place] [address], [place] [address] Oct, [facility] [address] [id number] [address] [place] [address], [place] [address] Oct, [facility] [address] [id number] [address] [place] [address], [place] [address] 11 Sep, 2012 [facility] [address] [id number] [address] [place] [address], [place] [address] Aug, [facility] [address] [id number] [address] [place] [address], [place] [address] Aug, [facility] [address] [id number] [address] [place] [address], [place] [address] Jul, [facility] [address] [id number] [address] [place] [address], [place] [address] Jul, [facility] [address] [id number] [address] [place] [address], [place] [address] Mar, [facility] [address] [id number] [address] [place] [address], [place] [address] Mar, [facility] [address] [id number] [address] [place] [address], [place] [address] Feb, [facility] [address] [id number] [address] [place] [address], [place] [address] Feb, [facility] [address] [id number] [address] [place] [address], [place] [address] Feb, [facility] [address] [id number] [address] [place] [address], [place] [address] Jan, [facility] [address] [id number] [address] [place] [address], [place] [address] Nov, [facility] [address] [id number] [address] [place] [address], [place] [address] 17 Sep, 2011 [facility] [address] [id number] [address] [place] [address], [place] [address] 15 Sep, 2011 [facility] [address] [id number] [address] [place] [address] Sep, [facility] [address] [id number] [address] [place] [address] Aug, [facility] [address] [id number] [address] [place] [address] Aug, [facility] [address] [id number] [address] [place] [address] Aug, [facility] [address] [id number] [address] [place] [address] Jun, [facility] [address] [id number] [address] [place] [address] Jun, [facility] [address] [id number] [address] [place] [address] Jun, [facility] [address] [id number] [address] [place] [address] Jun, [facility] [address] [id number] [address] [place] [address] May, [facility] [address] [id number] [address] [place] [address] May, [facility] [address] [address] [id number] [address] [place] [id number] May, [facility] [address] [id number] [address] [place] [id number] May, [facility] [address] [id number] [address] [place] [id number] Jun, [facility] [address] [id number] [address] [place] [id number] December, [facility] [address] [id number] [address] [place] [id number] May, IMMUNIZATIONS No Known Immunizations SOCIAL HISTORY Never Assessed REASON FOR VISIT Controlled Med Refill PLAN OF CARE VITAL SIGNS MEDICATIONS Medication Instructions Dosage Frequency Start Date End Date Duration S lisa Xanax 1 MG Orally Twice a day 1 tablet 12h December, 28 d ays Active RESULTS No Results PROCEDURES No Known [...]
--- OUTSIDE RECORDS SUMMARY | 2020-03-17 19:18 | XMS REPORT ---
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 Name Role Phone TONY BAZAN Unavailable PROBLEMS Type Condition ICD9-CM Code [id number] Code Onset Dates Condition S tatus SNOMED Code Problem Perimenopausal N95.1 Active 23311 4231857263 Problem Chronic migraine G43.709 Active 377 98958 Problem Seasonal allergic rhinitis, unspecified allergic rhinitis trigger J30.2 Active 807720232 Problem Vitamin D deficiency E55.9 Active 07386527 Problem Essential hypertension I10 Active 80213248 Problem Anxiety F41.9 Active 48536557 Problem Carpal tunnel syndrome, bilateral G56.03 Active [id number] Problem Iron deficiency anemia, unspecified iron deficiency an emia type D50.9 Active 74021338 Problem Nocturnal dyspnea R06.00 Active 24 7739894 Problem Daytime hypersomnia G47.19 Active [id number] ALLERGIES No Information ENCOUNTERS Encounter Location Date Diagnosis [place] [id number] [place] [address] Apr, Chronic migraine G43.709 ; E ssential hypertension I10 ; Iron deficiency anemia, unspecified iron deficiency anemia type D50.9 and Long-term use of high-risk medication Z79.899 [place] [address] [facility] [id number] [address] [place] [id number] Feb, Seasonal allergic rhinitis, unspecified allergic rhinitis trigger J30.2 and Chronic migraine G43.709 [place] [address] [address] [facility] [id number] [address] [place] [address] Feb, Anxiety F41.9 [place] [address] [place] [id number] [address] [place] [phone] Feb, Exposure to pertussis Z20.81 8 [place] [address] [place] [address] Jan, [place] [address] [address] Jan, Chronic migraine G43.709 and Anxiety F41.9 [place] [address] [place] [id number] [address] [address] December, Anxiety F41.9 [place] [address] [place] [id number] [address] [place] [address] Nov, Chronic migraine G43.709 ; S easonal allergic rhinitis, unspecified allergic rhinitis trigger J30.2 ; Vitamin D deficiency E55.9 ; Nocturnal dyspnea R06.00 ; Daytime hypersomnia G47.19 and Anxiety F41.9 [place] [address] [place] [id number] [address] Nov, Chronic migraine G43.709 [place] [address] [place] [id number] [address] [place] [address] Oct, [place] [address] [place] [id number] [address] [place] [address] Sep, Carpal tunnel syndrome, bila teral G56.03 [place] [address] [place] [id number] [address] [place] [address] Sep, Chronic migraine G43.709 [place] [address] [place] [id number] [address] [place] [address] Aug, [place] [address] [place] [id number] [address] [place] [address] Jul, Seasonal allergic rhinitis, unspecified allergic rhinitis trigger J30.2 [place] [address] [place] [id number] [address] [place] [address] Jul, Seasonal allergic rhinitis, unspecified allergic rhinitis trigger J30.2 [place] [address] [place] [id number] [address] [place] [address] Jul, Chronic migraine G43.709 [facility] [address] [facility] [id number] [address] [place] [address] Jun, [facility] [address] [id number] [address] [place] [id number] May, Dental caries K02.9 [facility] [address] [facility] [id number] [address] [place] [address] May, Chronic migraine G43.709 [facility] [address] [facility] [id number] [address] [place] [address] Apr, Chronic migraine G43.709 ; I yvette deficiency anemia, unspecified iron deficiency anemia type D50.9 ; Perimenopausal N95.1 and Vitamin D deficiency E55.9 [place] [address] [facility] [id number] [address] [place] [phone] Mar, [facility] [address] [facility] [id number] [address] [place] [id number] Mar, Seasonal allergic rhinitis, unspecified allergic rhinitis trigger J30.2 [facility] [address] [facility] [id number] [address] [place] [address] Mar, Chronic migraine G43.709 [facility] [address] [facility] [id number] [address] [place] [id number] Mar, [facility] [address] [facility] [id number] [address] [place] [address] Mar, Chronic migraine G43.709 ; I rregular menses N92.6 ; Iron deficiency anemia, unspecified iron deficiency anemia type D50.9 and General medical exam Z00.00 [facility] [address] [facility] [id number] [address] [place] [address] Mar, Chronic migraine G43.709 ; I yvette deficiency anemia, unspecified iron deficiency anemia type D50.9 ; Irregular menses N92.6 and General medical exam Z00.00 [facility] [address] [facility] [id number] [address] [place] [address] [id number] Feb, Dental examination Z01.20 [facility] [address] [id number] [address] [place] [address] Feb, Chronic tension-type headach e, 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 and Seasonal allergic rhinitis, unspecified allergic rhinitis trigger J30.2 [facility] [address] [id number] [address] [place] [address] Feb, [facility] [address] [id number] [address] [place] [address] Jan, Seasonal allergic rhinitis, unspecified allergic rhinitis trigger J30.2 [facility] [address] [id number] [address] [place] [address] December, Chronic tension-type headach e, 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 [facility] [address] [id number] [address] [place] [address] [id number] December, Dental examination Z01.20 [facility] [address] [id number] [address] [place] [phone] December, [facility] [address] [id number] [address] [place] [phone] Oct, [facility] [address] [id number] [address] [place] [id number] Oct, [facility] [address] [id number] [address] [place] [phone] Oct, Sore throat J02.9 and Season al allergic rhinitis, unspecified allergic rhinitis trigger J30.2 [facility] [address] [id number] [address] [place] [phone] Oct, [facility] [address] [facility] [id number] [address] [place] [address] Sep, [facility] [address] [facility] [id number] [address] [place] [address] Aug, Menstrual periods irregular N92.6 ; Chronic tension-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, 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 ; Acute upper respiratory infection, unspecified J06.9 and Other viral agents as the cause of diseases classified elsewhere B97.89 [facility] [address] [id number] [address] [place] [id number] Jul, [facility] [address] [id number] [address] [place] [id number] Jul, [facility] [address] [id number] [address] [place] [id number] Jul, Migraine without aura and wi thout status migrainosus, not intractable G43.009 [facility] [address] [facility] [id number] [address] [place] [phone] Jun, [facility] [address] [facility] [id number] [address] [place] [address] May, Migraine without aura and wi thout status migrainosus, not intractable G43.009 [facility] [address] [id number] [address] [place] [phone] May, [facility] [address] [facility] [id number] [address] [place] [phone] May, [facility] [address] [id number] [address] [place] [address] [id number] Mar, Dental examination Z01.20 [facility] [address] [id number] [address] [place] [phone] Mar, [facility] [address] [facility] [id number] [address] [place] [phone] Jan, Onychomycosis B35.1 [facility] [address] [facility] [id number] [address] [place] [phone] Jan, [facility] [address] [facility] [id number] [address] [place] [phone] December, Dental caries K02.9 [facility] [address] [facility] [id number] [address] [place] [phone] Nov, Dental examination Z01.20 [facility] [address] [id number] [address] [place] [id number] 09 Oct, 2015 Dental examination Z01.20 [facility] [address] [id number] [address] [place] [phone] Oct, [facility] [address] [facility] [id number] [address] [place] [place] [id number] Oct, Migraine G43.909 [facility] [address] [id number] [address] [place] [phone] Sep, Onychomycosis B35.1 [facility] [address] [id number] [address] [place] [phone] Sep, [facility] [address] [facility] [id number] [address] [place] [place] [phone] Aug, [facility] [address] [facility] [id number] [address] [place] [id number] Jul, [facility] [address] [facility] [id number] [address] [place] [address] Apr, [facility] [address] [place] [id number] [address] [place] [place] [phone] Apr, Right anterior knee pain 719 .46 [facility] [address] [place] [id number] [address] [place] [phone] Mar, Tendonitis 726.90 ; HTN (hyp ertension) 401.9 ; Tremors of nervous system 781.0 and Anxiety 300.00 [facility] [address] [facility] [id number] [address] [place] [id number] Mar, Thrush 112.0 [facility] [address] [facility] [id number] [address] [place] [id number] Feb, [facility] [address] [facility] [id number] [address] [place] [id number] Feb, Tremors of nervous system 78 1.0 and Carpal tunnel syndrome 354.0 [facility] [address] [id number] [address] [place] [phone] Jan, Anxiety 300.00 ; Tremors of nervous system 781.0 and Tendonitis 726.90 [facility] [address] [id number] [address] [place] [address] Jan, Anxiety 300.00 ; Tremors of nervous system 781.0 and Tendonitis 726.90 [facility] [address] [id number] [address] [place] [id number] Jan, Sinusitis 473.9 [facility] [address] [id number] [address] [place] [phone] December, [facility] [address] [id number] [address] [place] [phone] December, [facility] [address] [id number] [address] [place] [phone] December, [facility] [address] [id number] [address] [place] [phone] December, [facility] [address] [id number] [address] [place] [phone] December, [facility] [address] [id number] [address] [place] [place] [phone] Nov, [facility] [address] [id number] [address] [place] [place] [phone] Nov, [facility] [address] [id number] [address] [place] [phone] Sep, [facility] [address] [id number] [address] [place] [phone] Sep, [facility] [address] [id number] [address] [place] [phone] Sep, [facility] [address] [id number] [address] [place] [address] [place] [address] 02 Sep, 2014 [facility] [address] [id number] [address] [place] [address], [place] [address] Jul, [facility] [address] [id number] [address] [place] [address], [place] [address] Jul, [facility] [address] [id number] [address] [place] [address], [place] [address] Jul, [facility] [address] [id number] [address] [place] [address], [place] [address] Jul, [facility] [address] [id number] [address] [place] [address], [place] [address] Jul, [facility] [address] [id number] [address] [place] [address], [place] [address] Jul, [facility] [address] [id number] [address] [place] [address], [place] [address] Jul, [facility] [address] [id number] [address] [place] [address], [place] [address] Jul, [facility] [address] [id number] [address] [place] [address], [place] [address] Jul, [facility] [address] [id number] [address] [place] [address], [place] [address] Jul, [facility] [address] [id number] [address] [place] [address], [place] [address] Jun, [facility] [address] [id number] [address] [place] [address], [place] [address] Jun, [facility] [address] [id number] [address] [place] [address], [place] [address] Jun, [facility] [address] [id number] [address] [place] [address], [place] [address] Jun, [facility] [address] [id number] [address] [place] [address], [place] [address] May, [facility] [address] [id number] [address] [place] [address], [place] [address] 28 May, 2014 [facility] [address] [id number] [address] [place] [address], [place] [address] May, [facility] [address] [id number] [address] [place] [address], [place] [address] 14 May, 2014 [facility] [address] [id number] [address] [place] [address], [place] [address] 17 Apr, 2013 [facility] [address] [id number] [address] [place] [address], [place] [address] 17 Apr, 2013 [facility] [address] [id number] [address] [place] [address], [place] [address] 17 Apr, 2013 [facility] [address] [id number] [address] [place] [address], [place] [address] 17 Apr, 2013 [facility] [address] [id number] [address] [place] [address], [place] [address] 16 Apr, 2013 [facility] [address] [id number] [address] [place] [address], [place] [address] 16 Apr, 2014 [facility] [address] [id number] [address] [place] [address], [place] [address] 03 Apr, 2014 [facility] [address] [id number] [address] [place] [address], [place] [address] Apr, [facility] [address] [id number] [address] [place] [address], [place] [address] Mar, [facility] [address] [id number] [address] [place] [address], [place] [address] Mar, [facility] [address] [id number] [address] [place] [address], [place] [address] Feb, [facility] [address] [id number] [address] [place] [address], [place] [address] Feb, [facility] [address] [id number] [address] [place] [address], [place] [address] Feb, [facility] [address] [id number] [facility] [place] [address] Feb, [facility] [address] [id number] [address] [place] [address], [place] [address] Jan, [facility] [address] [id number] [address] [place] [address], [place] [address] Jan, [facility] [address] [id number] [address] [place] [address], [place] [address] Jan, [facility] [address] [id number] [address] [place] [address], [place] [address] Jan, [facility] [address] [id number] [address] [place] [address], [place] [address] Jan, [facility] [address] [id number] [address] [place] [address], [place] [address] Jan, [facility] [address] [id number] [address] [place] [address], [place] [address] December, [facility] [address] [id number] [address] [place] [address], [place] [address] December, [facility] [address] [id number] [address] [place] [address], [place] [address] December, [facility] [address] [id number] [address] [place] [address], [place] [address] December, [facility] [address] [id number] [address] [place] [address], [place] [address] December, [facility] [address] [id number] [address] [place] [address], [place] [address] Nov, [facility] [address] [id number] [address] [place] [address], [place] [address] Nov, [facility] [address] [id number] [address] [place] [address], [place] [address] Nov, [facility] [address] [id number] [address] [place] [address], [place] [address] 23 Nov, 2013 [facility] [address] [id number] [address] [place] [address], [place] [address] Nov, [facility] [address] [id number] [address] [place] [address], [place] [address] Nov, [facility] [address] [id number] [address] [place] [address], [place] [address] Oct, [facility] [address] [id number] [address] [place] [address], [place] [address] Oct, [facility] [address] [id number] [address] [place] [address], [place] [address] Oct, [facility] [address] [id number] [address] [place] [address], [place] [address] Oct, [facility] [address] [id number] [address] [place] [address], [place] [address] 14 Sep, 2013 [facility] [address] [id number] [address] [place] [address], [place] [address] 14 Sep, 2013 [facility] [address] [id number] [address] [place] [address], [place] [address] 10 Sep, 2013 [facility] [address] [id number] [address] [place] [address], [place] [address] 10 Sep, 2013 [facility] [address] [id number] [address] [place] [address], [place] [address] 07 Sep, 2013 [facility] [address] [id number] [address] [place] [address], [place] [address] 06 Sep, 2013 [facility] [address] [id number] [address] [place] [address], [place] [address] 06 Sep, 2013 [facility] [address] [id number] [address] [place] [address], [place] [address] 05 Sep, 2013 [facility] [address] [id number] [address] [place] [address], [place] [address] Sep, [facility] [address] [id number] [address] [place] [address], [place] [address] Sep, [facility] [address] [id number] [address] [place] [address], [place] [address] Sep, [facility] [address] [id number] [address] [place] [address], [place] [address] Sep, [facility] [address] [id number] [address] [place] [address], [place] [address] Sep, [facility] [address] [id number] [address] [place] [address], [place] [address] Aug, [facility] [address] [id number] [address] [place] [address], [place] [address] Aug, [facility] [address] [id number] [address] [place] [address], [place] [address] Jul, [facility] [address] [id number] [address] [place] [address], [place] [address] Jul, [facility] [address] [id number] [address] [place] [address], [place] [address] Jun, [facility] [address] [id number] [address] [place] [address], [place] [address] Jun, [facility] [address] [id number] [address] [place] [address], [place] [address] May, [facility] [address] [id number] [address] [place] [address], [place] [address] Apr, [facility] [address] [id number] [address] [place] [address], [place] [address] Mar, [facility] [address] [id number] [address] [place] [address], [place] [address] Jan, [facility] [address] [id number] [address] [place] [address], [place] [address] December, [facility] [address] [id number] [address] [place] [address], [place] [address] December, [facility] [address] [id number] [address] [place] [address], [place] [address] Oct, [facility] [address] [id number] [address] [place] [address], [place] [address] Oct, [facility] [address] [id number] [address] [place] [address], [place] [address] Sep, [facility] [address] [id number] [address] [place] [address], [place] [address] Aug, [facility] [address] [id number] [address] [place] [address], [place] [address] Aug, [facility] [address] [id number] [address] [place] [address], [place] [address] Jul, [facility] [address] [id number] [address] [place] [address], [place] [address] Jul, [facility] [address] [id number] [address] [place] [address], [place] [address] Mar, [facility] [address] [id number] [address] [place] [address], [place] [address] Mar, [facility] [facility] [address] [id number] [address] [place] [address], [place] [address] Feb, [facility] [address] [id number] [address] [place] [address], [place] [address] Feb, [facility] [address] [id number] [address] [place] [address], [place] [address] Feb, [facility] [address] [id number] [address] [place] [address], [place] [address] Jan, [facility] [address] [id number] [address] [place] [address], [place] [address] Nov, [facility] [address] [id number] [address] [place] [address] [address] 17 Sep, 2011 [facility] [address] [id number] [address] [place] [address], [place] [address] 15 Sep, 2011 [facility] [address] [id number] [address] [place] [address], [place] [address] Sep, [facility] [address] [id number] [address] [place] [address], [place] [address] Aug, [facility] [address] [id number] [address] [place] [address], [place] [address] Aug, [facility] [address] [id number] [address] [place] [address], [place] [address] Aug, [facility] [address] [id number] [address] [place] [address], [place] [address] Jun, [facility] [address] [id number] [address] [place] [address], [place] [address] Jun, [facility] [address] [id number] [address] [place] [address], [place] [address] Jun, [facility] [address] [id number] [address] [place] [address], [place] [address] Jun, [facility] [address] [id number] [address] [place] [address], [place] [address] May, [facility] [address] [id number] [address] [place] [address], [place] [address] May, [facility] [address] [id number] [address] [place] [address], [place] [address] 18 May, 2011 [facility] [address] [id number] [address] [place] [address], [place] [address] 14 May, 2011 [facility] [address] [id number] [address] [place] [address], [place] [address] Jun, [facility] [address] [id number] [address] [place] [address], [place] [address] December, [facility] [address] [id number] [address] [place] [address] 29 May, 2009 IMMUNIZATIONS No Known Immunizations SOCIAL HISTORY Never Assessed REASON FOR VISIT Refill request PLAN OF CARE VITAL SIGNS MEDICATIONS Medication Instructions Dosage Frequency Start Date End Date Duration S lisa Promethazine HCl 25 MG Orally with severe migraine 1 tablet as needed Active SudoGest 60 mg Orally every 6 hrs 1 tablet as needed 6h Active RESULTS No Results PROCEDURES No Known [...]
--- OUTSIDE RECORDS SUMMARY | 2020-03-17 19:18 | XMS REPORT ---
Author Author Ann MARTINEZ MARIA LUZ [facility] Address [address] [place] [address] Care Team Providers Care Product Management Analyst Name Role Phone CRISTIANO MARTINEZTA Unavailable PROBLEMS Type Condition ICD9-CM Code [id number] Code Onset Dates Condition S tatus SNOMED Code Problem Perimenopausal N95.1 Active 78422 [id number] Problem Chronic migraine G43.709 Active 377 22591 Problem Seasonal allergic rhinitis, unspecified allergic rhinitis trigger J30.2 Active 742804402 Problem Vitamin D deficiency E55.9 Active 07974479 Problem Essential hypertension I10 Active 75471238 Problem Anxiety F41.9 Active 56470110 Problem Carpal tunnel syndrome, bilateral G56.03 Active [id number] Problem Iron deficiency anemia, unspecified iron deficiency an emia type D50.9 Active 37397389 Problem Nocturnal dyspnea R06.00 Active 24 0546195 Problem Daytime hypersomnia G47.19 Active [id number] ALLERGIES Substance Reaction Event Type Date Status Hydrocodone-Acetaminophen nausea and vomiting Drug Allergy Apr, Active ENCOUNTERS Encounter Location Date Diagnosis [facility] [address] [id number] [address] [place] [address] Apr, Chronic migraine G43.709 ; E ssential hypertension I10 ; Iron deficiency anemia, unspecified iron deficiency anemia type D50.9 and Long-term use of high-risk medication Z79.899 [facility] [address] [facility] [id number] [address] [place] [address] Feb, Seasonal allergic rhinitis, unspecified allergic rhinitis trigger J30.2 and Chronic migraine G43.709 [facility] [address] [facility] [id number] [address] [place] [address] Feb, Anxiety F41.9 [facility] [address] [place] [address] Feb, Exposure to pertussis Z20.81 [address] [address] Jan, [place] [address] [address] Jan, Chronic migraine G43.709 and Anxiety F41.9 [place] [address] [address] December, Anxiety F41.9 [place] [address] [address] Nov, Chronic migraine G43.709 ; S easonal allergic rhinitis, unspecified allergic rhinitis trigger J30.2 ; Vitamin D deficiency E55.9 ; Nocturnal dyspnea R06.00 ; Daytime hypersomnia G47.19 and Anxiety F41.9 [place] [address] [address] Nov, Chronic migraine G43.709 [place] [address] [address] Oct, [place] [address] [address] Sep, Carpal tunnel syndrome, bila teral G56.03 [place] [address] [id number] [place] [address] Sep, Chronic migraine G43.709 [place] [address] [place] [id number] [address] [place] [address] Aug, [place] [address] [address] Jul, Seasonal allergic rhinitis, unspecified allergic rhinitis trigger J30.2 [place] [address] [place] [id number] [address] [place] [address] Jul, Seasonal allergic rhinitis, unspecified allergic rhinitis trigger J30.2 [facility] [address] [facility] [id number] [address] [place] [address] Jul, Chronic migraine G43.709 [facility] [address] [facility] [id number] [address] [place] [address] Jun, [facility] [address] [id number] [address] [place] [address] [id number] May, Dental caries K02.9 [facility] [address] [facility] [id number] [address] [place] [address] May, Chronic migraine G43.709 [place] [address] [facility] [id number] [address] [place] [address] Apr, Chronic migraine G43.709 ; I yvette deficiency anemia, unspecified iron deficiency anemia type D50.9 ; Perimenopausal N95.1 and Vitamin D deficiency E55.9 [place] [address] [facility] [id number] [address] [place] [address] Mar, [place] [address] [facility] [id number] [address] [place] [address] Mar, Seasonal allergic rhinitis, unspecified allergic rhinitis trigger J30.2 [facility] [address] [facility] [id number] [address] [place] [address] Mar, Chronic migraine G43.709 [place] [address] [facility] [id number] [address] [place] [address] Mar, [facility] [address] [facility] [id number] [address] [place] [address] Mar, Chronic migraine G43.709 ; I rregular menses N92.6 ; Iron deficiency anemia, unspecified iron deficiency anemia type D50.9 and General medical exam Z00.00 [facility] [address] [facility] [id number] [address] [place] [address] Mar, Chronic migraine G43.709 ; I yvette deficiency anemia, unspecified iron deficiency anemia type D50.9 ; Irregular menses N92.6 and General medical exam Z00.00 [facility] [address] [id number] [address] [place] [address] [id number] Feb, Dental examination Z01.20 [facility] [address] [id number] [address] [place] [address] Feb, Chronic tension-type headach e, 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 and Seasonal allergic rhinitis, unspecified allergic rhinitis trigger J30.2 [facility] [address] [id number] [address] [place] [address] Feb, [facility] [address] [id number] [address] [place] [address] Jan, Seasonal allergic rhinitis, unspecified allergic rhinitis trigger J30.2 [facility] [address] [id number] [address] [place] [address] December, Chronic tension-type headach e, 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 [facility] [address] [id number] [address] [place] [id number] December, Dental examination Z01.20 [facility] [address] [id number] [address] [place] [address] December, [facility] [address] [facility] [id number] [address] [place] [address] Oct, [facility] [address] [id number] [address] [place] [address] Oct, [facility] [address] [id number] [address] [place] [address] Oct, Sore throat J02.9 and Season al allergic rhinitis, unspecified allergic rhinitis trigger J30.2 [facility] [address] [id number] [address] [place] [address] Oct, [facility] [address] [facility] [id number] [address] [place] [address] Sep, [facility] [address] [facility] [id number] [address] [place] [address] Aug, Menstrual periods irregular N92.6 ; Chronic tension-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, 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 ; Acute upper respiratory infection, unspecified J06.9 and Other viral agents as the cause of diseases classified elsewhere B97.89 [facility] [address] [id number] [address] [place] [address] Jul, [facility] [address] [id number] [address] [place] [address] Jul, [facility] [address] [id number] [address] [place] [address] Jul, Migraine without aura and wi thout status migrainosus, not intractable G43.009 [facility] [address] [facility] [id number] [address] [place] [address] Jun, [facility] [address] [facility] [id number] [address] [place] [address] May, Migraine without aura and wi thout status migrainosus, not intractable G43.009 [facility] [address] [facility] [id number] [address] [place] [address] May, [facility] [address] [facility] [id number] [address] [place] [address] May, [facility] [address] [id number] [address] [place] [id number] Mar, Dental examination Z01.20 [facility] [address] [id number] [address] [place] [address] Mar, [facility] [address] [facility] [id number] [address] [place] [address] Jan, Onychomycosis B35.1 [facility] [address] [facility] [id number] [address] [place] [address] Jan, [facility] [address] [facility] [id number] [address] [place] [address] December, Dental caries K02.9 [facility] [address] [id number] [address] [place] [address] Nov, Dental examination Z01.20 [facility] [address] [id number] [address] [place] [address] 09 Oct, 2015 Dental examination Z01.20 [facility] [address] [id number] [address] [place] [address] Oct, [facility] [address] [id number] [address] [place] [address] Oct, Migraine G43.909 [facility] [address] [id number] [address] [place] [address] Sep, Onychomycosis B35.1 [facility] [address] [facility] [id number] [address] [place] [address] Sep, [facility] [address] [facility] [id number] [address] [place] [address] Aug, [facility] [address] [facility] [id number] [address] [place] [address] Jul, [facility] [address] [address] [id number] [address] [place] [address] Apr, [facility] [address] [id number] [address] [place] [address] Apr, Right anterior knee pain 719 .46 [facility] [address] [facility] [id number] [address] [place] [address] Mar, Tendonitis 726.90 ; HTN (hyp ertension) 401.9 ; Tremors of nervous system 781.0 and Anxiety 300.00 [facility] [address] [facility] [id number] [address] [place] [address] Mar, Thrush 112.0 [facility] [address] [id number] [address] [place] [address] Feb, [facility] [address] [place] [address] 08 Feb, 2015 Tremors of nervous system 78 1.0 and Carpal tunnel syndrome 354.0 [facility] [address] [id number] [address] [place] [address] Jan, Anxiety 300.00 ; Tremors of nervous system 781.0 and Tendonitis 726.90 [facility] [address] [id number] [address] [place] [address] Jan, Anxiety 300.00 ; Tremors of nervous system 781.0 and Tendonitis 726.90 [facility] [address] [id number] [address] [place] [address] Jan, Sinusitis 473.9 [facility] [address] [facility] [id number] [address] [place] [address] December, [facility] [address] [id number] [address] [place] [id number] December, [facility] [address] [id number] [address] [place] [id number] December, [facility] [address] [facility] [id number] [address] [place] [address] December, [facility] [address] [facility] [id number] [address] [place] [address] December, [facility] [address] [id number] [address] [place] [id number] Nov, [facility] [address] [id number] [address] [place] [address] Nov, [facility] [address] [id number] [address] [place] [address] Sep, [facility] [address] [facility] [id number] [address] [place] [address] Sep, [facility] [address] [facility] [id number] [address] [place] [address] Sep, [facility] [address] [id number] [address] [place] [address], [place] [address] Sep, [facility] [address] [id number] [address] [place] [address], [place] [address] Jul, [facility] [address] [id number] [address] [place] [address], [place] [address] Jul, [facility] [place] [facility] [address] [id number] [address] [place] [address], [place] [address] Jul, [facility] [address] [id number] [address] [place] [address], [place] [address] Jul, [facility] [address] [id number] [address] [place] [address], [place] [address] Jul, [facility] [address] [id number] [address] [place] [address], [place] [address] Jul, [facility] [address] [id number] [address] [place] [address], [place] [address] Jul, [facility] [address] [id number] [address] [place] [address], [place] [address] Jul, [facility] [address] [id number] [address] [place] [address], [place] [address] Jul, [facility] [place] [facility] [address] [id number] [address] [place] [address], [place] [address] Jul, [facility] [place] [facility] [address] [id number] [address] [place] [address], [place] [address] Jun, [facility] [place] [facility] [address] [id number] [address] [place] [address], [place] [address] Jun, [facility] [place] [facility] [address] [id number] [address] [place] [address], [place] [address] Jun, [facility] [place] [facility] [address] [id number] [address] [place] [address], [place] [address] Jun, [facility] [place] [facility] [address] [id number] [address] [place] [address], [place] [address] 28 May, 2014 [facility] [address] [id number] [address] [place] [address], [place] [address] 28 May, 2014 [facility] [address] [id number] [address] [place] [address], [place] [address] 14 May, 2014 [facility] [address] [id number] [address] [place] [address], [place] [address] 14 May, 2014 [facility] [place] [facility] [address] [id number] [address] [place] [address], [place] [address] 17 Apr, 2013 [facility] [address] [id number] [address] [place] [address], [place] [address] 17 Apr, 2013 [facility] [address] [id number] [address] [place] [address], [place] [address] 17 Apr, 2013 [facility] [address] [id number] [address] [place] [address], [place] [address] 17 Apr, 2013 [facility] [address] [id number] [address] [place] [address], [place] [address] 16 Apr, 2013 [facility] [address] [id number] [address] [place] [address], [place] [address] 16 Apr, 2013 [facility] [address] [id number] [address] [place] [address], [place] [address] 03 Apr, 2013 [facility] [place] [facility] [address] [id number] [address] [place] [address], [place] [address] Apr, 2013 [facility] [place] [facility] [address] [id number] [address] [place] [address], [place] [address] Mar, [facility] [place] [facility] [address] [id number] [address] [place] [address], [place] [address] Mar, [facility] [place] [facility] [address] [id number] [address] [place] [address], [place] [address] Feb, [facility] [place] [facility] [address] [id number] [address] [place] [address], [place] [address] Feb, [facility] [place] [facility] [address] [id number] [facility] [place] [address] Feb, [facility] [address] [id number] [address] [place] [address], [place] [address] Feb, [facility] [address] [id number] [address] [place] [address], [place] [address] Jan, [facility] [place] [facility] [address] [id number] [address] [place] [address], [place] [address] Jan, [facility] [address] [id number] [address] [place] [address], [place] [address] Jan, [facility] [address] [id number] [address] [place] [address], [place] [address] Jan, [facility] [address] [id number] [address] [place] [address], [place] [address] Jan, [facility] [address] [id number] [address] [place] [address], [place] [address] Jan, [facility] [address] [id number] [address] [place] [address], [place] [address] December, [facility] [address] [id number] [address] [place] [address], [place] [address] December, [facility] [address] [id number] [address] [place] [address], [place] [address] December, [facility] [address] [id number] [address] [place] [address], [place] [address] December, [facility] [address] [id number] [address] [place] [address], [place] [address] December, [facility] [place] [facility] [address] [id number] [address] [place] [address], [place] [address] Nov, [facility] [place] [facility] [address] [id number] [address] [place] [address], [place] [address] Nov, [facility] [place] [facility] [address] [id number] [address] [place] [address], [place] [address] Nov, [facility] [address] [id number] [address] [place] [address], [place] [address] Nov, [facility] [address] [id number] [address] [place] [address], [place] [address] Nov, [facility] [address] [id number] [address] [place] [address], [place] [address] Nov, [facility] [address] [id number] [address] [place] [address], [place] [address] Oct, [facility] [address] [id number] [address] [place] [address], [place] [address] Oct, [facility] [address] [id number] [address] [place] [address], [place] [address] Oct, [facility] [address] [id number] [address] [place] [address], [place] [address] Oct, [facility] [address] [id number] [address] [place] [address], [place] [address] 14 Sep, 2013 [facility] [address] [id number] [address] [place] [address], [place] [address] 14 Sep, 2013 [facility] [address] [id number] [address] [place] [address], [place] [address] 10 Sep, 2013 [facility] [address] [id number] [address] [place] [address], [place] [address] 10 Sep, 2013 [facility] [place] [facility] [address] [id number] [address] [place] [address], [place] [address] 07 Sep, 2013 [facility] [place] [facility] [address] [id number] [address] [place] [address], [place] [address] 06 Sep, 2013 [facility] [place] [facility] [address] [id number] [address] [place] [address], [place] [address] 06 Sep, 2013 [facility] [place] [facility] [address] [id number] [address] [place] [address], [place] [address] 05 Sep, 2013 [facility] [place] [facility] [address] [id number] [address] [place] [address], [place] [address] Sep, [facility] [address] [id number] [address] [place] [address], [place] [address] Sep, [facility] [address] [id number] [address] [place] [address], [place] [address] Sep, [facility] [address] [id number] [address] [place] [address], [place] [address] Sep, [facility] [address] [id number] [address] [place] [address], [place] [address] Sep, [facility] [address] [id number] [address] [place] [address], [place] [address] Aug, [facility] [address] [id number] [address] [place] [address], [place] [address] Aug, [facility] [address] [id number] [address] [place] [address], [place] [address] Jul, [facility] [address] [id number] [address] [place] [address], [place] [address] Jul, [facility] [address] [id number] [address] [place] [address] Jun, [facility] [address] [id number] [address] [place] [address] Jun, [facility] [address] [id number] [address] [place] [id number] May, [facility] [address] [id number] [address] [place] [address], [place] [address] Apr, [facility] [address] [id number] [address] [place] [id number] Mar, [facility] [address] [id number] [address] [place] [id number] Jan, [facility] [address] [id number] [address] [place] [id number] December, [facility] [address] [id number] [address] [place] [address], [place] [address] December, [facility] [address] [id number] [address] [place] [address], [place] [address] Oct, [facility] [address] [id number] [address] [place] [address], [place] [address] Oct, [facility] [address] [id number] [address] [place] [address], [place] [address] Sep, [facility] [address] [id number] [address] [place] [address], [place] [address] Aug, [facility] [address] [id number] [address] [place] [address], [place] [address] Aug, [facility] [address] [id number] [address] [place] [address], [place] [address] Jul, [facility] [address] [id number] [address] [place] [address], [place] [address] Jul, [facility] [address] [id number] [address] [place] [address], [place] [address] Mar, [facility] [address] [id number] [address] [place] [address], [place] [address] Mar, [facility] [address] [id number] [address] [place] [address], [place] [address] Feb, [facility] [address] [id number] [address] [place] [address], [place] [address] Feb, [facility] [address] [id number] [address] [place] [address], [place] [address] Feb, [facility] [address] [id number] [address] [place] [address], [place] [address] Jan, [facility] [address] [id number] [address] [place] [address], [place] [address] Nov, [facility] [address] [id number] [address] [place] [address], [place] [address] 17 Sep, 2011 [facility] [address] [id number] [address] [place] [address], [place] [address] 15 Sep, 2011 [facility] [address] [id number] [address] [place] [address], [place] [address] 10 Sep, 2011 [facility] [address] [id number] [address] [place] [address], [place] [address] Aug, [facility] [address] [id number] [address] [place] [address], [place] [address] Aug, [facility] [address] [id number] [address] [place] [address], [place] [address] Aug, [facility] [address] [id number] [address] [place] [address], [place] [address] Jun, [facility] [facility] [address] [id number] [address] [place] [address], [place] [address] Jun, [facility] [address] [id number] [address] [place] [address], [place] [address] 16 Jun, 2011 [facility] [address] [id number] [address] [place] [address], [place] [address] Jun, [facility] [address] [id number] [address] [place] [address], [place] [address] May, [facility] [address] [id number] [address] [place] [address], [place] [address] 18 May, 2011 [facility] [address] [id number] [address] [place] [address], [place] [address] 18 May, 2011 [facility] [address] [id number] [address] [place] [address], [place] [address] 14 May, 2011 [facility] [address] [id number] [address] [place] [address], [place] [address] 26 Jun, 2010 [facility] [address] [id number] [address] [place] [address], [place] [address] December, [facility] [address] [facility] [id number] [address] [place] [address] May, IMMUNIZATIONS No Known Immunizations SOCIAL HISTORY Never Assessed REASON FOR VISIT Establish Care/ Needs meds. Cal MA PLAN OF CARE Activity Details Follow Up 3 months or as indicated by lab Reason: VITAL SIGNS Height 64 in 2018-04-18 Weight 124.9 lbs 2018-04-18 Temperature 97.5 degrees Fahrenheit 2018-04-18 Heart Rate 88 bpm 2018-04-18 Respiratory Rate 18 2018-04-18 BMI 21.44 kg/m2 2018-04-18 Blood pressure systolic 132 mmHg 2018-04-18 Blood pressure diastolic 94 mmHg 2018-04-18 MEDICATIONS Medication Instructions Dosage Frequency Start Date End Date Duration S tatus Topiramate 50 mg TAKE ONE TABLET BY MOUTH TWICE DAILY 30 Active Promethazine HCl 25 MG Orally with severe migraine 1 tablet as needed Active SudoGest 60 mg Orally every 6 hrs 1 tablet as needed 6h Active Flonase 50 mcg/act Nasally 1spray(s) intranasally once a da y take 1 sprays by Nasal route 1 time per day in each nostril Sep, 30 days Active [id number]-Ppxdlvmm 50-325-40 MG Orally every 4 hrs prn 1 t ablet as needed 10 Active Propranolol HCl 60 mg Orally Twice a day 1 tablet 12h 30 days Active Proventil HFA 108 (90 Base) MCG/ACT INHA LE TWO PUFFS BY MOUTH EVERY 6 HOURS NEEDED FOR SHORTNESS OF BREATH/COUGH 25 Active Xanax 1 MG Orally Twice a day 1 tablet 12h December, 28 d ays Active Zyrtec Allergy 10 mg Act seamus Ferrous Sulfate 325 mg (65 mg iron) 1 Ta blet by Oral route 2 times per day give with food Apr, Active RESULTS No Results PROCEDURES Procedure Date Ordered Result Body Site COMPREHEN METABOLIC PANEL Apr 18, 2018 LIPID PANEL Apr 18, 2018 ASSAY THYROID STIM HORMONE Apr 18, 2018 COMPLETE CBC W/AUTO DIFF WBC Apr 18, 2018 VENIPUNCT, ROUTINE* Apr 18, 2018 DRUG TEST PRSMV CHEM ANLYZR Apr 18, 2018 INSTRUCTIONS MEDICATIONS ADMINISTERED No Known Medications MEDICAL [...]
--- OUTSIDE RECORDS SUMMARY | 2020-03-17 19:19 | XMS REPORT ---
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 Name Role Phone RACHEL VICTOR M Unavailable PROBLEMS Type Condition ICD9-CM Code UPN57-SF Code Onset Dates Condition S tatus SNOMED Code Problem Perimenopausal N95.1 Active 95995 [id number] Problem Seasonal allergic rhinitis, unspecified allergic rhinitis trigger J30.2 Active 765295993 Problem HTN (hypertension) 401.9 Active 3 2530460 Problem Vitamin D deficiency E55.9 Active 95351149 Problem Anxiety F41.9 Active 99568278 Problem Nocturnal dyspnea R06.00 Active 24 9232707 Problem Iron deficiency anemia, unspecified iron deficiency an emia type D50.9 Active 28788087 Problem Chronic migraine G43.709 Active 377 61787 Problem Daytime hypersomnia G47.19 Active [id number] Problem Carpal tunnel syndrome, bilateral G56.03 Active [id number] ALLERGIES No Information ENCOUNTERS Encounter Location Date Diagnosis [place] [address] [place] [id number] [place] [phone] Feb, Seasonal allergic rhinitis, unspecified allergic rhinitis trigger J30.2 and Chronic migraine G43.709 [place] [address] [place] [id number] [address] [place] [phone] Feb, Anxiety F41.9 [place] [id number] [address] [place] [address] Feb, Exposure to pertussis Z20.81 8 [place] [address] [place] [id number] [address] [place] [address] Jan, [place] [address] [place] [id number] [place] [address] Jan, Chronic migraine G43.709 and Anxiety F41.9 [facility] [address] [facility] [id number] [address] [place] [phone] December, Anxiety F41.9 [facility] [address] [facility] [id number] [address] [place] [address] Nov, Chronic migraine G43.709 ; S easonal allergic rhinitis, unspecified allergic rhinitis trigger J30.2 ; Vitamin D deficiency E55.9 ; Nocturnal dyspnea R06.00 ; Daytime hypersomnia G47.19 and Anxiety F41.9 [facility] [address] [facility] [id number] [address] [place] [address] Nov, Chronic migraine G43.709 [facility] [address] [facility] [id number] [address] [place] [id number] Oct, [facility] [address] [facility] [id number] [address] [place] [id number] Sep, Carpal tunnel syndrome, bila teral G56.03 [facility] [address] [facility] [id number] [address] [place] [id number] Sep, Chronic migraine G43.709 [facility] [address] [facility] [id number] [address] [place] [id number] Aug, [facility] [address] [facility] [id number] [address] [place] [id number] Jul, Seasonal allergic rhinitis, unspecified allergic rhinitis trigger J30.2 [facility] [address] [facility] [id number] [address] [place] [id number] Jul, Seasonal allergic rhinitis, unspecified allergic rhinitis trigger J30.2 [facility] [address] [facility] [id number] [address] [place] [address] Jul, Chronic migraine G43.709 [facility] [address] [facility] [id number] [address] [place] [address] Jun, [facility] [address] [place] [id number] [address] [place] [id number] May, Dental caries K02.9 [facility] [address] [place] [id number] [place] [address] May, Chronic migraine G43.709 [facility] [address] [place] [address] Apr, Chronic migraine G43.709 ; I yvette deficiency anemia, unspecified iron deficiency anemia type D50.9 ; Perimenopausal N95.1 and Vitamin D deficiency E55.9 [place] [address] [place] [id number] [place] [address] Mar, [place] [address] [address] Mar, Seasonal allergic rhinitis, unspecified allergic rhinitis trigger J30.2 [place] [address] [place] [id number] [place] [address] Mar, Chronic migraine G43.709 [place] [address] [place] [id number] [place] [address] Mar, [place] [address] [address] Mar, Chronic migraine G43.709 ; I rregular menses N92.6 ; Iron deficiency anemia, unspecified iron deficiency anemia type D50.9 and General medical exam Z00.00 [place] [address] [place] [address] Mar, Chronic migraine G43.709 ; I yvette deficiency anemia, unspecified iron deficiency anemia type D50.9 ; Irregular menses N92.6 and General medical exam Z00.00 [facility] [address] [place] [id number] [address] [place] [address] [id number] Feb, Dental examination Z01.20 [facility] [address] [place] [id number] [address] [place] [id number] 18 Feb, 2017 Chronic tension-type headach e, 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 and Seasonal allergic rhinitis, unspecified allergic rhinitis trigger J30.2 [facility] [address] [facility] [id number] [address] [place] [id number] Feb, [facility] [address] [place] [id number] [place] [address] Jan, Seasonal allergic rhinitis, unspecified allergic rhinitis trigger J30.2 [facility] [address] [place] [id number] [place] [address] December, Chronic tension-type headach e, 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 [facility] [id number] [place] [address] [id number] December, Dental examination Z01.20 [facility] [address] [place] [id number] [address] [place] [address] December, [place] [address] [address] Oct, [facility] [address] [place] [id number] [place] [address] Oct, [facility] [address] [address] Oct, Sore throat J02.9 and Season al allergic rhinitis, unspecified allergic rhinitis trigger J30.2 [place] [address] [address] Oct, [facility] [address] [address] Sep, [place] [address] [place] [id number] [place] [address] Aug, Menstrual periods irregular N92.6 ; Chronic tension-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, 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 ; Acute upper respiratory infection, unspecified J06.9 and Other viral agents as the cause of diseases classified elsewhere B97.89 [facility] [address] [address] Jul, [facility] [address] [id number] [address] [place] [id number] Jul, [facility] [address] [id number] [address] [place] [id number] Jul, Migraine without aura and wi thout status migrainosus, not intractable G43.009 [facility] [address] [id number] [address] [place] [address] Jun, [facility] [address] [id number] [address] [place] [address] May, Migraine without aura and wi thout status migrainosus, not intractable G43.009 [facility] [address] [id number] [address] [place] [phone] May, [facility] [address] [id number] [address] [place] [address] May, [facility] [address] [id number] [address] [place] [address] [id number] Mar, Dental examination Z01.20 [facility] [address] [id number] [address] [place] [id number] Mar, [facility] [address] [id number] [address] [place] [address] Jan, Onychomycosis B35.1 [facility] [address] [id number] [address] [place] [phone] Jan, [facility] [address] [id number] [address] [place] [phone] December, Dental caries K02.9 [facility] [address] [id number] [address] [place] [id number] Nov, Dental examination Z01.20 [facility] [address] [id number] [address] [place] [address] Oct, Dental examination Z01.20 [facility] [address] [place] [id number] [address] [place] [phone] Oct, [facility] [address] [place] [id number] [place] [address] Oct, Migraine G43.909 [facility] [address] [place] [id number] [address] [place] [address] Sep, Onychomycosis B35.1 [facility] [address] [place] [id number] [address] [place] [phone] Sep, [facility] [address] [place] [id number] [address] [place] [phone] Aug, [facility] [address] [address] Jul, [facility] [address] [address] Apr, [facility] [address] [address] Apr, Right anterior knee pain 719 .46 [place] [address] [address] Mar, Tendonitis 726.90 ; HTN (hyp ertension) 401.9 ; Tremors of nervous system 781.0 and Anxiety 300.00 [facility] [address] [place] [id number] [place] [phone] Mar, Thrush 112.0 [facility] [address] [place] [id number] [address] [place] [phone] Feb, [facility] [address] [address] Feb, Tremors of nervous system 78 1.0 and Carpal tunnel syndrome 354.0 [facility] [address] [place] [id number] [address] [place] [id number] Jan, Anxiety 300.00 ; Tremors of nervous system 781.0 and Tendonitis 726.90 [facility] [address] [id number] [address] [place] [phone] Jan, Anxiety 300.00 ; Tremors of nervous system 781.0 and Tendonitis 726.90 [facility] [address] [id number] [address] [place] [phone] Jan, Sinusitis 473.9 [facility] [address] [id number] [address] [place] [phone] December, [facility] [address] [id number] [address] [place] [phone] December, [facility] [address] [id number] [address] [place] [phone] December, [facility] [address] [id number] [address] [place] [phone] December, [facility] [address] [id number] [address] [place] [phone] December, [facility] [address] [id number] [address] [place] [phone] Nov, [facility] [address] [id number] [address] [place] [phone] Nov, [facility] [address] [id number] [address] [place] [phone] Sep, [facility] [address] [id number] [address] [place] [phone] Sep, [facility] [address] [id number] [address] [place] [phone] Sep, [facility] [address] [id number] [address] [place] [phone] Sep, [facility] [address] [id number] [address] [place] [phone] Jul, [facility] [address] [id number] [address] [place] [id number] Jul, [facility] [address] [id number] [address] [place] [address], [place] [address] Jul, [facility] [address] [id number] [address] [place] [address], [place] [address] Jul, [facility] [address] [id number] [address] [place] [address], [place] [address] Jul, [facility] [address] [id number] [address] [place] [address], [place] [address] Jul, [facility] [address] [id number] [address] [place] [address], [place] [address] Jul, [facility] [address] [id number] [address] [place] [address], [place] [address] Jul, [facility] [address] [id number] [address] [place] [address], [place] [address] Jul, [facility] [address] [id number] [address] [place] [address], [place] [address] Jul, [facility] [address] [id number] [address] [place] [address], [place] [address] Jun, [facility] [address] [id number] [address] [place] [address], [place] [address] Jun, [facility] [address] [id number] [address] [place] [address], [place] [address] Jun, [facility] [address] [id number] [address] [place] [address], [place] [address] Jun, [facility] [address] [id number] [address] [place] [address], [place] [address] May, [facility] [address] [id number] [address] [place] [address], [place] [address] May, [facility] [address] [id number] [address] [place] [address], [place] [address] 14 May, 2014 [facility] [address] [id number] [facility] [place] [address] 14 May, 2014 [facility] [address] [id number] [facility] [place] [address] 17 Apr, 2013 [facility] [address] [id number] [facility] [place] [address] 17 Apr, 2013 [facility] [address] [id number] [address] [place] [address], [place] [address] 17 Apr, 2013 [facility] [address] [id number] [address] [place] [address], [place] [address] 17 Apr, 2013 [facility] [address] [id number] [address] [place] [address], [place] [address] 16 Apr, 2013 [facility] [address] [id number] [address] [place] [address], [place] [address] 16 Apr, 2013 [facility] [address] [id number] [address] [place] [address], [place] [address] 03 Apr, 2013 [facility] [address] [id number] [address] [place] [address], [place] [address] 03 Apr, 2014 [facility] [address] [id number] [address] [place] [address], [place] [address] Mar, [facility] [address] [id number] [address] [place] [address], [place] [address] Mar, [facility] [address] [id number] [address] [place] [address], [place] [address] Feb, [facility] [address] [id number] [address] [place] [address], [place] [address] Feb, [facility] [address] [id number] [address] [place] [address], [place] [address] Feb, [facility] [address] [id number] [address] [place] [address], [place] [address] Feb, [facility] [address] [id number] [address] [place] [address], [place] [address] Jan, [facility] [address] [id number] [facility] [place] [address] Jan, [facility] [address] [id number] [facility] [place] [address] Jan, [facility] [address] [id number] [facility] [place] [address] Jan, [facility] [address] [id number] [address] [place] [address], [place] [address] Jan, [facility] [address] [id number] [address] [place] [address], [place] [address] Jan, [facility] [address] [id number] [address] [place] [address], [place] [address] December, [facility] [address] [id number] [address] [place] [address], [place] [address] December, [facility] [address] [id number] [address] [place] [address], [place] [address] December, [facility] [address] [id number] [address] [place] [address], [place] [address] December, [facility] [address] [id number] [address] [place] [address], [place] [address] December, [facility] [address] [id number] [address] [place] [address], [place] [address] Nov, [facility] [address] [id number] [address] [place] [address], [place] [address] Nov, [facility] [address] [id number] [address] [place] [address], [place] [address] Nov, [facility] [address] [id number] [address] [place] [address], [place] [address] Nov, [facility] [address] [id number] [address] [place] [address], [place] [address] Nov, [facility] [address] [id number] [address] [place] [address], [place] [address] Nov, [facility] [address] [id number] [address] [place] [address], [place] [address] Oct, [facility] [address] [id number] [address] [place] [address], [place] [address] Oct, [facility] [address] [id number] [address] [place] [address], [place] [address] Oct, [facility] [address] [id number] [address] [place] [address], [place] [address] 07 Oct, 2013 [facility] [address] [id number] [address] [place] [address], [place] [address] 14 Sep, 2013 [facility] [address] [id number] [address] [place] [address], [place] [address] 14 Sep, 2013 [facility] [address] [id number] [address] [place] [address], [place] [address] 10 Sep, 2013 [facility] [address] [id number] [address] [place] [address], [place] [address] 10 Sep, 2013 [facility] [address] [id number] [address] [place] [address], [place] [address] 07 Sep, 2013 [facility] [address] [id number] [address] [place] [address], [place] [address] 06 Sep, 2013 [facility] [address] [id number] [address] [place] [address], [place] [address] Sep, 2013 [facility] [address] [id number] [address] [place] [address], [place] [address] 05 Sep, 2013 [facility] [address] [id number] [address] [place] [address], [place] [address] 05 Sep, 2013 [facility] [address] [id number] [address] [place] [address], [place] [address] 05 Sep, 2013 [facility] [address] [id number] [address] [place] [address], [place] [address] Sep, [facility] [address] [id number] [address] [place] [address], [place] [address] Sep, [facility] [address] [id number] [address] [place] [address], [place] [address] Sep, [facility] [address] [id number] [address] [place] [address], [place] [address] Aug, [facility] [address] [id number] [address] [place] [address], [place] [address] Aug, [facility] [address] [id number] [address] [place] [address], [place] [address] Jul, [facility] [address] [id number] [address] [place] [address], [place] [address] Jul, [facility] [address] [id number] [address] [place] [address], [place] [address] Jun, [facility] [address] [id number] [address] [place] [address], [place] [address] Jun, [facility] [address] [id number] [address] [place] [address], [place] [address] May, [facility] [address] [id number] [address] [place] [address], [place] [address] Apr, [facility] [address] [id number] [address] [place] [address], [place] [address] Mar, [facility] [address] [id number] [address] [place] [address], [place] [address] Jan, [facility] [address] [id number] [address] [place] [address], [place] [address] December, [facility] [address] [id number] [address] [place] [address], [place] [address] December, [facility] [address] [id number] [address] [place] [address], [place] [address] Oct, [facility] [address] [id number] [address] [place] [address], [place] [address] 13 Oct, 2012 [facility] [address] [id number] [address] [place] [address], [place] [address] Sep, [facility] [address] [id number] [address] [place] [address], [place] [address] Aug, [facility] [address] [id number] [address] [place] [address], [place] [address] Aug, [facility] [address] [id number] [address] [place] [address], [place] [address] Jul, [facility] [address] [id number] [address] [place] [address], [place] [address] Jul, [facility] [address] [id number] [address] [place] [address], [place] [address] Mar, [facility] [address] [id number] [address] [place] [address], [place] [address] Mar, [facility] [address] [id number] [address] [place] [address], [place] [address] Feb, [facility] [address] [id number] [address] [place] [address], [place] [address] Feb, [facility] [address] [id number] [address] [place] [address], [place] [address] Feb, [facility] [address] [id number] [address] [place] [address], [place] [address] Jan, [facility] [address] [id number] [address] [place] [address], [place] [address] Nov, [facility] [address] [id number] [address] [place] [address], [place] [id number] 17 Sep, 2011 [facility] [address] [id number] [address] [place] [address], [place] [address] 15 Sep, 2011 [facility] [address] [id number] [address] [place] [address], [place] [address] Sep, [facility] [address] [id number] [address] [place] [id number] Aug, [facility] [address] [id number] [address] [place] [phone] Aug, [facility] [address] [id number] [address] [place] [phone] Aug, [facility] [address] [id number] [address] [place] [phone] Jun, [facility] [address] [id number] [address] [place] [phone] Jun, [facility] [address] [id number] [address] [place] [phone] Jun, [facility] [address] [id number] [address] [place] [phone] Jun, [facility] [address] [id number] [address] [place] [phone] May, [facility] [address] [id number] [address] [place] [phone] May, [facility] [address] [id number] [address] [place] [phone] May, [facility] [address] [id number] [address] [place] [phone] May, [facility] [address] [id number] [address] [place] [phone] Jun, [facility] [address] [id number] [address] [place] [phone] December, [facility] [address] [id number] [address] [place] [phone] May, IMMUNIZATIONS No Known Immunizations SOCIAL HISTORY Never Assessed REASON FOR VISIT Controlled Med Refill PLAN OF CARE VITAL SIGNS MEDICATIONS Medication Instructions Dosage Frequency Start Date End Date Duration S tatus Xanax 1 MG Orally Twice a day 1 tablet 12h 08 Dec, 2014 28 d ays Active RESULTS No Results [...]
--- OUTSIDE RECORDS SUMMARY | 2020-03-17 19:19 | XMS REPORT ---
Author Author Ann ORTIZ [facility] IN [facility] Address [address] [place] [address] Care Team Providers Care Hand Candle Dipper Name Role Phone AKBAR ORTIZ Unavailable PROBLEMS Type Condition ICD9-CM Code [id number] Code Onset Dates Condition S tatus SNOMED Code Problem Perimenopausal N95.1 Active 04524 [id number] Problem Seasonal allergic rhinitis, unspecified allergic rhinitis trigger J30.2 Active 144829035 Problem HTN (hypertension) 401.9 Active 3 0626667 Problem Vitamin D deficiency E55.9 Active 46980435 Problem Anxiety F41.9 Active 24940942 Problem Nocturnal dyspnea R06.00 Active 24 4343520 Problem Iron deficiency anemia, unspecified iron deficiency an emia type D50.9 Active 08423108 Problem Chronic migraine G43.709 Active 377 60190 Problem Daytime hypersomnia G47.19 Active [id number] Problem Carpal tunnel syndrome, bilateral G56.03 Active [id number] ALLERGIES No Information ENCOUNTERS Encounter Location Date Diagnosis [place] [address] [address] Feb, Seasonal allergic rhinitis, unspecified allergic rhinitis trigger J30.2 and Chronic migraine G43.709 [place] [id number] [place] [address] 17 Feb, 2018 Anxiety F41.9 [place] [address] [address] Feb, Exposure to pertussis Z20.81 8 [place] [address] [address] Jan, [place] [address] [address] Jan, Chronic migraine G43.709 and Anxiety F41.9 [facility] [address] [facility] [id number] [address] [place] [address] December, Anxiety F41.9 [facility] [address] [facility] [id number] [address] [place] [address] Nov, Chronic migraine G43.709 ; S easonal allergic rhinitis, unspecified allergic rhinitis trigger J30.2 ; Vitamin D deficiency E55.9 ; Nocturnal dyspnea R06.00 ; Daytime hypersomnia G47.19 and Anxiety F41.9 [facility] [address] [facility] [id number] [address] [place] [address] Nov, Chronic migraine G43.709 [facility] [address] [facility] [id number] [address] [place] [address] Oct, [facility] [address] [facility] [id number] [address] [place] [address] Sep, Carpal tunnel syndrome, bila teral G56.03 [facility] [address] [facility] [id number] [address] [place] [address] Sep, Chronic migraine G43.709 [facility] [address] [facility] [id number] [address] [place] [address] Aug, [facility] [address] [facility] [id number] [address] [place] [address] Jul, Seasonal allergic rhinitis, unspecified allergic rhinitis trigger J30.2 [facility] [address] [facility] [id number] [address] [place] [address] Jul, Seasonal allergic rhinitis, unspecified allergic rhinitis trigger J30.2 [facility] [address] [facility] [id number] [address] [place] [address] Jul, Chronic migraine G43.709 [facility] [address] [facility] [id number] [address] [place] [address] Jun, [facility] [address] [facility] [id number] [address] [place] [address] [id number] 27 May, 2017 Dental caries K02.9 [facility] [address] [place] [id number] [address] [place] [address] May, Chronic migraine G43.709 [facility] [address] [place] [id number] [address] [place] [address] Apr, Chronic migraine G43.709 ; I yvette deficiency anemia, unspecified iron deficiency anemia type D50.9 ; Perimenopausal N95.1 and Vitamin D deficiency E55.9 [facility] [address] [facility] [id number] [address] [place] [address] Mar, [place] [address] [address] Mar, Seasonal allergic rhinitis, unspecified allergic rhinitis trigger J30.2 [place] [address] [place] [id number] [place] [address] Mar, Chronic migraine G43.709 [facility] [id number] [place] [address] Mar, [facility] [address] [place] [id number] [address] [place] [address] Mar, Chronic migraine G43.709 ; I rregular menses N92.6 ; Iron deficiency anemia, unspecified iron deficiency anemia type D50.9 and General medical exam Z00.00 [facility] [address] [place] [id number] [address] [place] [address] Mar, Chronic migraine G43.709 ; I yvette deficiency anemia, unspecified iron deficiency anemia type D50.9 ; Irregular menses N92.6 and General medical exam Z00.00 [facility] [address] [facility] [id number] [address] [place] [address] [id number] Feb, Dental examination Z01.20 [facility] [address] [facility] [id number] [address] [place] [address] 18 Feb, 2017 Chronic tension-type headach e, 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 and Seasonal allergic rhinitis, unspecified allergic rhinitis trigger J30.2 [facility] [address] [address] Feb, [facility] [address] [address] Jan, Seasonal allergic rhinitis, unspecified allergic rhinitis trigger J30.2 [facility] [address] [address] December, Chronic tension-type headach e, 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 [facility] [address] [place] [address] [id number] December, Dental examination Z01.20 [place] [address] [address] December, [place] [address] [address] Oct, [place] [address] [address] Oct, [facility] [address] [address] Oct, Sore throat J02.9 and Season al allergic rhinitis, unspecified allergic rhinitis trigger J30.2 [place] [address] [address] Oct, [facility] [address] [address] Sep, [place] [address] [address] Aug, Menstrual periods irregular N92.6 ; Chronic tension-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, 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 ; Acute upper respiratory infection, unspecified J06.9 and Other viral agents as the cause of diseases classified elsewhere B97.89 [facility] [address] [address] Jul, [facility] [address] [id number] [address] [place] [address] Jul, [facility] [address] [id number] [address] [place] [address] Jul, Migraine without aura and wi thout status migrainosus, not intractable G43.009 [facility] [address] [id number] [address] [place] [address] Jun, [facility] [address] [id number] [address] [place] [address] May, Migraine without aura and wi thout status migrainosus, not intractable G43.009 [facility] [address] [id number] [address] [place] [address] May, [facility] [address] [id number] [address] [place] [address] May, [facility] [address] [id number] [address] [place] [address] [id number] Mar, Dental examination Z01.20 [facility] [address] [id number] [address] [place] [address] Mar, [facility] [address] [id number] [address] [place] [address] Jan, Onychomycosis B35.1 [facility] [address] [id number] [address] [place] [address] Jan, [facility] [address] [id number] [address] [place] [address] December, Dental caries K02.9 [facility] [address] [id number] [address] [place] [address] Nov, Dental examination Z01.20 [facility] [address] [id number] [address] [place] [address] Oct, Dental examination Z01.20 [facility] [address] [facility] [id number] [address] [place] [address] Oct, [facility] [address] [place] [id number] [address] [place] [address] Oct, Migraine G43.909 [facility] [address] [place] [id number] [address] [place] [address] Sep, Onychomycosis B35.1 [facility] [address] [place] [id number] [address] [place] [address] Sep, [facility] [address] [place] [id number] [address] [place] [id number] Aug, [facility] [address] [place] [id number] [address] [place] [address] Jul, [facility] [address] [place] [id number] [address] [place] [address] Apr, [facility] [address] [place] [id number] [address] [place] [address] Apr, Right anterior knee pain 719 .46 [place] [address] [place] [id number] [place] [address] Mar, Tendonitis 726.90 ; HTN (hyp ertension) 401.9 ; Tremors of nervous system 781.0 and Anxiety 300.00 [facility] [address] [place] [id number] [address] [place] [address] Mar, Thrush 112.0 [facility] [address] [place] [id number] [address] [place] [address] Feb, [facility] [address] [place] [id number] [place] [address] Feb, Tremors of nervous system 78 1.0 and Carpal tunnel syndrome 354.0 [facility] [address] [place] [id number] [address] [place] [address] Jan, Anxiety 300.00 ; Tremors of nervous system 781.0 and Tendonitis 726.90 [facility] [address] [id number] [address] [place] [address] Jan, Anxiety 300.00 ; Tremors of nervous system 781.0 and Tendonitis 726.90 [facility] [address] [id number] [address] [place] [id number] Jan, Sinusitis 473.9 [facility] [address] [id number] [address] [place] [address] December, [facility] [address] [id number] [address] [place] [phone] December, [facility] [address] [id number] [address] [place] [address] December, [facility] [address] [id number] [address] [place] [id number] December, [facility] [address] [id number] [address] [place] [phone] December, [facility] [address] [id number] [address] [place] [address] Nov, [facility] [address] [id number] [address] [place] [address] Nov, [facility] [address] [id number] [address] [place] [address] Sep, [facility] [address] [id number] [address] [place] [address] Sep, [facility] [address] [id number] [address] [place] [phone] Sep, [facility] [address] [id number] [address] [place] [address] Sep, [facility] [address] [id number] [address] [place] [address] Jul, [facility] [address] [id number] [address] [place] [address], [place] [address] Jul, [facility] [address] [id number] [address] [place] [address], [place] [address] Jul, [facility] [address] [id number] [address] [place] [address], [place] [address] Jul, [facility] [address] [id number] [address] [place] [address], [place] [address] Jul, [facility] [address] [id number] [address] [place] [address], [place] [address] Jul, [facility] [address] [id number] [address] [place] [address], [place] [address] Jul, [facility] [address] [id number] [address] [place] [address], [place] [address] Jul, [facility] [address] [id number] [address] [place] [address], [place] [address] Jul, [facility] [address] [id number] [address] [place] [address], [place] [address] Jul, [facility] [address] [id number] [address] [place] [address], [place] [address] Jun, [facility] [address] [id number] [address] [place] [address], [place] [address] Jun, [facility] [address] [id number] [address] [place] [address], [place] [address] Jun, [facility] [address] [id number] [address] [place] [address], [place] [address] Jun, [facility] [address] [id number] [address] [place] [address], [place] [address] May, [facility] [address] [id number] [address] [place] [address], [place] [address] May, [facility] [address] [id number] [address] [place] [address], [place] [address] 14 May, 2014 [facility] [address] [id number] [address] [place] [address], [place] [address] 14 May, 2014 [facility] [address] [id number] [address] [place] [address], [place] [address] 17 Apr, 2013 [facility] [address] [id number] [address] [place] [address], [place] [address] 17 Apr, 2013 [facility] [address] [id number] [address] [place] [address], [place] [address] 17 Apr, 2013 [facility] [address] [id number] [address] [place] [address], [place] [address] 17 Apr, 2013 [facility] [address] [id number] [address] [place] [address], [place] [address] 16 Apr, 2014 [facility] [address] [id number] [address] [place] [address], [place] [address] 16 Apr, 2013 [facility] [address] [id number] [address] [place] [address], [place] [address] 03 Apr, 2014 [facility] [address] [id number] [address] [place] [address], [place] [address] Apr, [facility] [address] [id number] [address] [place] [address], [place] [address] Mar, [facility] [address] [id number] [address] [place] [address], [place] [address] Mar, [facility] [address] [id number] [address] [place] [address], [place] [address] Feb, [facility] [address] [id number] [address] [place] [address], [place] [address] Feb, [facility] [address] [id number] [address] [place] [address], [place] [address] Feb, [facility] [address] [id number] [address] [place] [address], [place] [address] Feb, [facility] [address] [id number] [address] [place] [address], [place] [address] Jan, [facility] [address] [id number] [address] [place] [address], [place] [address] Jan, [facility] [address] [id number] [address] [place] [address], [place] [address] Jan, [facility] [address] [id number] [address] [place] [address], [place] [address] Jan, [facility] [address] [id number] [address] [place] [address], [place] [address] Jan, [facility] [address] [id number] [address] [place] [address], [place] [address] Jan, [facility] [address] [id number] [address] [place] [address], [place] [address] December, [facility] [address] [id number] [address] [place] [address], [place] [address] December, [facility] [address] [id number] [address] [place] [address], [place] [address] December, [facility] [address] [id number] [address] [place] [address], [place] [address] December, [facility] [address] [id number] [address] [place] [address], [place] [address] December, [facility] [address] [id number] [address] [place] [address], [place] [address] Nov, [facility] [address] [id number] [address] [place] [address], [place] [address] Nov, [facility] [address] [id number] [address] [place] [address], [place] [address] Nov, [facility] [address] [id number] [address] [place] [address], [place] [address] Nov, [facility] [address] [id number] [address] [place] [address], [place] [address] Nov, [facility] [address] [id number] [address] [place] [address], [place] [address] Nov, [facility] [address] [id number] [address] [place] [address], [place] [address] Oct, [facility] [address] [id number] [address] [place] [address], [place] [address] Oct, [facility] [address] [id number] [address] [place] [address], [place] [address] Oct, [facility] [address] [id number] [address] [place] [address], [place] [address] Oct, [facility] [address] [id number] [address] [place] [address], [place] [address] 14 Sep, 2013 [facility] [address] [id number] [address] [place] [address], [place] [address] 14 Sep, 2013 [facility] [address] [id number] [address] [place] [address], [place] [address] 10 Sep, 2013 [facility] [address] [id number] [address] [place] [address], [place] [address] Sep, [facility] [address] [id number] [address] [place] [address], [place] [address] 07 Sep, 2013 [facility] [address] [id number] [address] [place] [address], [place] [address] Sep, [facility] [address] [id number] [address] [place] [address], [place] [address] Sep, [facility] [address] [id number] [address] [place] [address], [place] [address] Sep, [facility] [address] [id number] [address] [place] [address], [place] [address] Sep, [facility] [address] [id number] [address] [place] [address], [place] [address] 05 Sep, 2013 [facility] [address] [id number] [address] [place] [address], [place] [address] Sep, [facility] [address] [id number] [address] [place] [address], [place] [address] Sep, [facility] [address] [id number] [address] [place] [address], [place] [address] Sep, [facility] [address] [id number] [address] [place] [address], [place] [address] Aug, [facility] [address] [id number] [address] [place] [address], [place] [address] Aug, [facility] [address] [id number] [address] [place] [address], [place] [address] Jul, [facility] [address] [id number] [address] [place] [address], [place] [id number] Jul, [facility] [address] [id number] [address] [place] [id number] Jun, [facility] [address] [id number] [address] [place] [address], [place] [id number] Jun, [facility] [address] [id number] [address] [place] [address], [place] [address] May, [facility] [address] [id number] [address] [place] [address], [place] [address] Apr, [facility] [address] [id number] [address] [place] [address], [place] [address] Mar, [facility] [address] [id number] [address] [place] [id number] Jan, [facility] [address] [id number] [address] [place] [id number] December, [facility] [address] [id number] [address] [place] [address], [place] [id number] December, [facility] [address] [id number] [address] [place] [address], [place] [id number] Oct, [facility] [address] [id number] [address] [place] [address], [place] [address] Oct, [facility] [address] [id number] [address] [place] [address], [place] [address] Sep, [facility] [address] [id number] [address] [place] [address], [place] [address] Aug, [facility] [address] [id number] [address] [place] [address], [place] [id number] Aug, [facility] [address] [id number] [address] [place] [address], [place] [address] Jul, [facility] [address] [id number] [address] [place] [address], [place] [address] Jul, [facility] [address] [id number] [address] [place] [address], [place] [id number] Mar, [facility] [address] [id number] [address] [place] [address], [place] [address] Mar, [facility] [address] [id number] [address] [place] [address], [place] [id number] Feb, [facility] [address] [id number] [address] [place] [address], [place] [id number] Feb, [facility] [address] [id number] [address] [place] [address], [place] [id number] Feb, [facility] [address] [id number] [address] [place] [address], [place] [address] Jan, [facility] [address] [id number] [address] [place] [address], [place] [address] Nov, [facility] [address] [id number] [address] [place] [address], [place] [address] Sep, [facility] [address] [id number] [address] [place] [address], [place] [id number] 15 Sep, 2011 [facility] [address] [id number] [address] [address] Sep, [facility] [address] [id number] [address] [place] [id number] Aug, [facility] [address] [id number] [address] [place] [id number] Aug, [facility] [address] [id number] [address] [place] [id number] Aug, [facility] [address] [id number] [address] [place] [id number] Jun, [facility] [address] [id number] [address] [place] [id number] Jun, [facility] [address] [id number] [address] [place] [id number] Jun, [facility] [address] [id number] [address] [place] [address] [id number] Jun, [facility] [address] [id number] [address] [place] [phone] May, [facility] [address] [id number] [address] [place] [phone] May, [facility] [address] [id number] [address] [place] [phone] May, [facility] [address] [id number] [address] [place] [phone] May, [facility] [address] [id number] [address] [place] [phone] Jun, [facility] [address] [id number] [address] [place] [phone] December, [facility] [address] [id number] [address] [place] [phone] May, IMMUNIZATIONS No Known Immunizations SOCIAL HISTORY Never Assessed REASON FOR VISIT Prophylaxis PLAN OF CARE VITAL SIGNS MEDICATIONS Medication Instructions Dosage Frequency Start Date End Date Duration S tatus Azithromycin 250 MG Orally Once a day 2 tablets on the fi rst day, then 1 tablet daily for 4 days 24h 5 day(s) Active RESULTS No Results PROCEDURES No Known [...]
--- OUTSIDE RECORDS SUMMARY | 2020-03-17 19:19 | XMS REPORT ---
Author Author Ann RAMOS Organization [facility] Address [address] [place] [address] Care Team Providers Care Body Repairer Name Role Phone RACHEL VICTOR M Unavailable PROBLEMS Type Condition ICD9-CM Code KME22-FM Code Onset Dates Condition S tatus SNOMED Code Problem Perimenopausal N95.1 Active 95751 [id number] Problem Seasonal allergic rhinitis, unspecified allergic rhinitis trigger J30.2 Active 393260940 Problem HTN (hypertension) 401.9 Active 3 1874728 Problem Vitamin D deficiency E55.9 Active 86172408 Problem Anxiety F41.9 Active 27456760 Problem Nocturnal dyspnea R06.00 Active 24 4948550 Problem Iron deficiency anemia, unspecified iron deficiency an emia type D50.9 Active 83082769 Problem Chronic migraine G43.709 Active 377 59270 Problem Daytime hypersomnia G47.19 Active [id number] Problem Carpal tunnel syndrome, bilateral G56.03 Active [id number] ALLERGIES No Information ENCOUNTERS Encounter Location Date Diagnosis [place] [address] [id number] [place] [address] Mar, [place] [address] [address] [place] [id number] [address] [place] [address] Feb, Seasonal allergic rhinitis, unspecified allergic rhinitis trigger J30.2 and Chronic migraine G43.709 [place] [address] [facility] [id number] [address] [place] [address] Feb, Anxiety F41.9 [place] [address] [address] [place] [id number] [address] [place] [address] Feb, Exposure to pertussis Z20.81 8 [place] [address] [address] [place] [id number] [address] [place] [address] Jan, [facility] [address] [facility] [id number] [address] [place] [address] Jan, Chronic migraine G43.709 and Anxiety F41.9 [facility] [address] [facility] [id number] [address] [place] [address] December, Anxiety F41.9 [facility] [address] [place] [id number] [address] [place] [address] Nov, Chronic migraine G43.709 ; S easonal allergic rhinitis, unspecified allergic rhinitis trigger J30.2 ; Vitamin D deficiency E55.9 ; Nocturnal dyspnea R06.00 ; Daytime hypersomnia G47.19 and Anxiety F41.9 [facility] [address] [place] [id number] [address] [place] [address] Nov, Chronic migraine G43.709 [place] [place] [id number] [address] [place] [address] Oct, [facility] [address] [place] [id number] [address] [place] [address] Sep, Carpal tunnel syndrome, bila teral G56.03 [facility] [address] [place] [id number] [address] [place] [address] Sep, Chronic migraine G43.709 [facility] [address] [place] [id number] [address] [place] [address] Aug, [facility] [address] [place] [id number] [address] [place] [address] Jul, Seasonal allergic rhinitis, unspecified allergic rhinitis trigger J30.2 [facility] [address] [facility] [id number] [address] [place] [address] Jul, Seasonal allergic rhinitis, unspecified allergic rhinitis trigger J30.2 [facility] [address] [place] [id number] [address] [place] [address] Jul, Chronic migraine G43.709 [facility] [address] [place] [id number] [address] [place] [address] Jun, [facility] [address] [id number] [address] [place] [id number] May, Dental caries K02.9 [facility] [address] [facility] [id number] [address] [place] [address] 12 May, 2017 Chronic migraine G43.709 [place] [address] [facility] [id number] [place] [address] Apr, Chronic migraine G43.709 ; I yvette deficiency anemia, unspecified iron deficiency anemia type D50.9 ; Perimenopausal N95.1 and Vitamin D deficiency E55.9 [place] [address] [facility] [id number] [address] [place] [address] Mar, [place] [address] [address] Mar, Seasonal allergic rhinitis, unspecified allergic rhinitis trigger J30.2 [place] [address] [facility] [id number] [address] [place] [address] Mar, Chronic migraine G43.709 [place] [address] [address] Mar, [place] [address] [facility] [id number] [address] [place] [address] Mar, Chronic migraine G43.709 ; I rregular menses N92.6 ; Iron deficiency anemia, unspecified iron deficiency anemia type D50.9 and General medical exam Z00.00 [facility] [address] [facility] [id number] [address] [place] [address] Mar, Chronic migraine G43.709 ; I yvette deficiency anemia, unspecified iron deficiency anemia type D50.9 ; Irregular menses N92.6 and General medical exam Z00.00 [facility] [address] [id number] [address] [place] [address] [id number] Feb, Dental examination Z01.20 [facility] [address] [facility] [id number] [address] [place] [address] Feb, Chronic tension-type headach e, 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 and Seasonal allergic rhinitis, unspecified allergic rhinitis trigger J30.2 [facility] [address] [facility] [id number] [address] [place] [address] Feb, [facility] [address] [facility] [id number] [address] [place] [address] Jan, Seasonal allergic rhinitis, unspecified allergic rhinitis trigger J30.2 [facility] [address] [facility] [id number] [address] [place] [address] December, Chronic tension-type headach e, 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 [facility] [address] [place] [id number] [address] [place] [address] [id number] December, Dental examination Z01.20 [facility] [address] [place] [id number] [address] [place] [address] December, [facility] [address] [place] [id number] [address] [place] [address] Oct, [facility] [address] [place] [id number] [place] [address] Oct, [facility] [address] [facility] [id number] [address] [place] [address] Oct, Sore throat J02.9 and Season al allergic rhinitis, unspecified allergic rhinitis trigger J30.2 [facility] [address] [place] [id number] [address] [place] [address] Oct, [facility] [address] [facility] [id number] [address] [place] [address] Sep, [facility] [address] [place] [id number] [address] [place] [address] Aug, Menstrual periods irregular N92.6 ; Chronic tension-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, 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 ; Acute upper respiratory infection, unspecified J06.9 and Other viral agents as the cause of diseases classified elsewhere B97.89 [facility] [address] [id number] [address] [place] [address] Jul, [facility] [address] [id number] [address] [place] [address] Jul, [facility] [address] [id number] [address] [place] [address] Jul, Migraine without aura and wi thout status migrainosus, not intractable G43.009 [facility] [address] [id number] [address] [place] [address] Jun, [facility] [address] [id number] [address] [place] [address] May, Migraine without aura and wi thout status migrainosus, not intractable G43.009 [facility] [address] [id number] [address] [place] [address] May, [facility] [address] [id number] [address] [place] [address] May, [facility] [address] [id number] [address] [place] [address] [id number] Mar, Dental examination Z01.20 [facility] [address] [id number] [address] [place] [address] Mar, [facility] [address] [id number] [address] [place] [address] Jan, Onychomycosis B35.1 [facility] [address] [id number] [address] [place] [address] Jan, [facility] [address] [id number] [address] [place] [address] December, Dental caries K02.9 [facility] [address] [id number] [address] [place] [address] Nov, Dental examination Z01.20 [facility] [address] [id number] [address] [place] [address] Oct, Dental examination Z01.20 [facility] [address] [id number] [address] [place] [address] Oct, [facility] [address] [facility] [id number] [address] [place] [address] Oct, Migraine G43.909 [facility] [address] [place] [id number] [address] [place] [address] Sep, Onychomycosis B35.1 [facility] [address] [facility] [id number] [address] [place] [address] Sep, [facility] [address] [place] [id number] [address] [place] [address] Aug, [facility] [address] [place] [id number] [address] [place] [address] Jul, [facility] [address] [place] [id number] [address] [place] [address] Apr, [facility] [address] [place] [id number] [address] [place] [address] 10 Apr, 2015 Right anterior knee pain 719 .46 [facility] [address] [place] [id number] [address] [place] [address] Mar, Tendonitis 726.90 ; HTN (hyp ertension) 401.9 ; Tremors of nervous system 781.0 and Anxiety 300.00 [facility] [address] [place] [id number] [address] [place] [address] Mar, Thrush 112.0 [facility] [address] [place] [id number] [address] [place] [address] Feb, [facility] [address] [place] [id number] [place] [address] Feb, Tremors of nervous system 78 1.0 and Carpal tunnel syndrome 354.0 [facility] [address] [place] [id number] [address] [place] [address] Jan, Anxiety 300.00 ; Tremors of nervous system 781.0 and Tendonitis 726.90 [facility] [address] [id number] [address] [place] [address] Jan, Anxiety 300.00 ; Tremors of nervous system 781.0 and Tendonitis 726.90 [facility] [address] [id number] [address] [place] [address] Jan, Sinusitis 473.9 [facility] [address] [id number] [address] [place] [address] December, [facility] [address] [id number] [address] [place] [address] December, [facility] [address] [facility] [id number] [address] [place] [address] December, [facility] [address] [facility] [id number] [address] [place] [address] December, [facility] [address] [facility] [id number] [address] [place] [address] December, [facility] [address] [facility] [id number] [address] [place] [address] Nov, [facility] [address] [facility] [id number] [address] [place] [address] Nov, [facility] [address] [id number] [address] [place] [address] Sep, [facility] [address] [id number] [address] [place] [address] Sep, [facility] [address] [id number] [address] [place] [address] Sep, [facility] [address] [facility] [id number] [address] [place] [address] Sep, [facility] [address] [facility] [id number] [address] [place] [address] Jul, [facility] [address] [id number] [address] [place] [address], [place] [address] Jul, [facility] [address] [id number] [address] [place] [address], [place] [address] Jul, [facility] [address] [id number] [address] [place] [address], [place] [address] Jul, [facility] [address] [id number] [address] [place] [address], [place] [address] Jul, [facility] [address] [id number] [address] [place] [address], [place] [address] Jul, [facility] [address] [id number] [address] [place] [address], [place] [address] Jul, [facility] [address] [id number] [address] [place] [address], [place] [address] Jul, [facility] [address] [id number] [address] [place] [address], [place] [address] Jul, [facility] [address] [id number] [address] [place] [address], [place] [address] Jul, [facility] [address] [id number] [address] [place] [address], [place] [address] Jun, [facility] [address] [id number] [address] [place] [address], [place] [address] Jun, [facility] [address] [id number] [address] [place] [address], [place] [address] Jun, [facility] [address] [id number] [address] [place] [address], [place] [address] Jun, [facility] [address] [id number] [address] [place] [address], [place] [address] May, [facility] [address] [id number] [address] [place] [address], [place] [address] May, [facility] [address] [id number] [facility] [place] [address] 14 May, 2013 [facility] [address] [id number] [address] [place] [address], [place] [address] 14 May, 2014 [facility] [address] [id number] [address] [place] [address], [place] [address] 17 Apr, 2013 [facility] [address] [id number] [address] [place] [address], [place] [address] 17 Apr, 2013 [facility] [address] [id number] [address] [place] [address], [place] [address] 17 Apr, 2013 [facility] [address] [id number] [address] [place] [address], [place] [address] 17 Apr, 2013 [facility] [address] [id number] [address] [place] [address], [place] [address] 16 Apr, 2013 [facility] [address] [id number] [address] [place] [address], [place] [address] 16 Apr, 2013 [facility] [address] [id number] [address] [place] [address], [place] [address] 03 Apr, 2013 [facility] [address] [id number] [address] [place] [address], [place] [address] 03 Apr, 2013 [facility] [address] [id number] [address] [place] [address], [place] [address] Mar, [facility] [address] [id number] [address] [place] [address], [place] [address] Mar, [facility] [address] [id number] [address] [place] [address], [place] [address] Feb, [facility] [address] [id number] [address] [place] [address], [place] [address] Feb, [facility] [address] [id number] [address] [place] [address], [place] [address] Feb, [facility] [address] [id number] [address] [place] [address], [place] [address] Feb, [facility] [address] [id number] [facility] [place] [address] Jan, [facility] [address] [id number] [facility] [place] [address] Jan, [facility] [address] [id number] [facility] [place] [address] Jan, [facility] [address] [id number] [address] [place] [address], [place] [address] Jan, [facility] [address] [id number] [address] [place] [address], [place] [address] Jan, [facility] [address] [id number] [address] [place] [address], [place] [address] Jan, [facility] [address] [id number] [address] [place] [address], [place] [address] December, [facility] [address] [id number] [address] [place] [address], [place] [address] December, [facility] [address] [id number] [address] [place] [address], [place] [address] December, [facility] [address] [id number] [address] [place] [address], [place] [address] December, [facility] [address] [id number] [address] [place] [address], [place] [address] December, [facility] [address] [id number] [address] [place] [address], [place] [address] Nov, [facility] [address] [id number] [address] [place] [address], [place] [address] Nov, [facility] [address] [id number] [address] [place] [address], [place] [address] Nov, [facility] [address] [id number] [address] [place] [address], [place] [address] Nov, [facility] [address] [id number] [facility] [place] [address] Nov, [facility] [address] [id number] [address] [place] [address], [place] [address] Nov, [facility] [address] [id number] [address] [place] [address], [place] [address] Oct, [facility] [address] [id number] [address] [place] [address], [place] [address] Oct, [facility] [address] [id number] [address] [place] [address], [place] [address] Oct, [facility] [address] [id number] [address] [place] [address], [place] [address] 07 Oct, 2013 [facility] [address] [id number] [address] [place] [address], [place] [address] 14 Sep, 2013 [facility] [address] [id number] [address] [place] [address], [place] [address] 14 Sep, 2013 [facility] [address] [id number] [address] [place] [address], [place] [address] 10 Sep, 2013 [facility] [address] [id number] [address] [place] [address], [place] [address] 10 Sep, 2013 [facility] [address] [id number] [address] [place] [address], [place] [address] 07 Sep, 2013 [facility] [address] [id number] [address] [place] [address], [place] [address] 06 Sep, 2013 [facility] [address] [id number] [address] [place] [address], [place] [address] 06 Sep, 2013 [facility] [address] [id number] [address] [place] [address], [place] [address] 05 Sep, 2013 [facility] [address] [id number] [address] [place] [address], [place] [address] 05 Sep, 2013 [facility] [address] [id number] [address] [place] [address], [place] [address] Sep, [facility] [address] [id number] [address] [place] [address], [place] [address] Sep, [facility] [address] [id number] [address] [place] [address], [place] [address] Sep, [facility] [address] [id number] [address] [place] [address], [place] [address] Sep, [facility] [address] [id number] [address] [place] [address], [place] [address] Aug, [facility] [address] [id number] [address] [place] [address], [place] [address] Aug, [facility] [address] [id number] [address] [place] [address], [place] [address] Jul, [facility] [address] [id number] [address] [place] [address], [place] [address] Jul, [facility] [address] [id number] [address] [place] [address], [place] [address] Jun, [facility] [address] [id number] [address] [place] [address], [place] [address] Jun, [facility] [address] [id number] [address] [place] [address], [place] [address] May, [facility] [address] [id number] [address] [place] [address], [place] [address] Apr, [facility] [address] [id number] [address] [place] [address], [place] [address] Mar, [facility] [address] [id number] [address] [place] [address], [place] [address] Jan, [facility] [address] [id number] [address] [place] [address], [place] [address] December, [facility] [address] [id number] [address] [place] [address], [place] [address] December, [facility] [address] [id number] [address] [place] [address], [place] [address] Oct, [facility] [address] [id number] [address] [place] [address], [place] [address] Oct, [facility] [address] [id number] [address] [place] [address], [place] [address] 11 Sep, 2012 [facility] [address] [id number] [address] [place] [address], [place] [address] Aug, [facility] [address] [id number] [address] [place] [address], [place] [address] Aug, [facility] [address] [id number] [address] [place] [address], [place] [address] Jul, [facility] [address] [id number] [address] [place] [address], [place] [address] Jul, [facility] [address] [id number] [address] [place] [address], [place] [address] Mar, [facility] [address] [id number] [address] [place] [address], [place] [address] Mar, [facility] [address] [id number] [address] [place] [address], [place] [address] Feb, [facility] [address] [id number] [address] [place] [address], [place] [address] Feb, [facility] [address] [id number] [address] [place] [address], [place] [address] Feb, [facility] [address] [id number] [address] [place] [address], [place] [address] Jan, [facility] [address] [id number] [address] [place] [address], [place] [address] Nov, [facility] [address] [id number] [address] [place] [address], [place] [address] 17 Sep, 2011 [facility] [address] [id number] [address] [place] [address], [place] [address] 15 Sep, 2011 [facility] [address] [id number] [address] [place] [address] Sep, [facility] [address] [id number] [address] [place] [address] Aug, [facility] [address] [id number] [address] [place] [address] Aug, [facility] [address] [id number] [address] [place] [phone] Aug, [facility] [address] [id number] [address] [place] [phone] Jun, [facility] [address] [id number] [address] [place] [phone] Jun, [facility] [address] [id number] [address] [place] [phone] Jun, [facility] [address] [id number] [address] [place] [phone] Jun, [facility] [address] [id number] [address] [place] [phone] May, [facility] [address] [id number] [address] [place] [phone] May, [facility] [address] [id number] [address] [place] [phone] May, [facility] [address] [id number] [address] [place] [phone] May, [facility] [address] [id number] [address] [place] [phone] Jun, [facility] [address] [id number] [address] [place] [phone] December, [facility] [address] [id number] [address] [place] [phone] May, IMMUNIZATIONS No Known Immunizations SOCIAL HISTORY Never Assessed REASON FOR VISIT Controlled Med Refill PLAN OF CARE VITAL SIGNS MEDICATIONS Medication Instructions Dosage Frequency Start Date End Date Duration S lisa Faftpaphwe-[id number] 50-325-40 MG Orally every 4 hrs prn 1 t ablet as needed 10 Active Xanax 1 MG Orally Twice a [...]
--- OUTSIDE RECORDS SUMMARY | 2020-03-17 19:19 | XMS REPORT ---
Author Author Ann RAMOS Organization [facility] Address [address] [place] [address] Care Team Providers Care Manager Of Compliance Name Role Phone RACHEL VICTOR M Unavailable PROBLEMS Type Condition ICD9-CM Code [id number] Code Onset Dates Condition S tatus SNOMED Code Problem Perimenopausal N95.1 Active 92758 [id number] Problem Seasonal allergic rhinitis, unspecified allergic rhinitis trigger J30.2 Active 047547445 Problem HTN (hypertension) 401.9 Active 3 9186236 Problem Vitamin D deficiency E55.9 Active 60959187 Problem Anxiety F41.9 Active 31722552 Problem Nocturnal dyspnea R06.00 Active 24 7438184 Problem Iron deficiency anemia, unspecified iron deficiency an emia type D50.9 Active 86892459 Problem Chronic migraine G43.709 Active 377 23391 Problem Daytime hypersomnia G47.19 Active [id number] Problem Carpal tunnel syndrome, bilateral G56.03 Active [id number] ALLERGIES No Information ENCOUNTERS Encounter Location Date Diagnosis [place] [address] [id number] [place] [address] Mar, [place] [address] [address] [place] [id number] [address] [place] [address] Feb, Seasonal allergic rhinitis, unspecified allergic rhinitis trigger J30.2 and Chronic migraine G43.709 [place] [address] [address] [facility] [id number] [address] [place] [address] Feb, Anxiety F41.9 [place] [address] [address] [place] [id number] [address] [place] [address] Feb, Exposure to pertussis Z20.81 8 [place] [address] [address] [place] [id number] [address] [place] [address] Jan, [facility] [address] [facility] [id number] [address] [place] [address] Jan, Chronic migraine G43.[address] [facility] [address] [facility] [id number] [address] [place] [address] December, Anxiety F41.9 [facility] [address] [place] [id number] [address] [place] [address] Nov, Chronic migraine G43.709 ; S easonal allergic rhinitis, unspecified allergic rhinitis trigger J30.2 ; Vitamin D deficiency E55.9 ; Nocturnal dyspnea R06.00 ; Daytime hypersomnia G47.[address] [facility] [address] [place] [id number] [address] [place] [address] Nov, Chronic migraine G43.709 [place] [address] [place] [id number] [address] [place] [address] Oct, [facility] [address] [place] [id number] [address] [place] [address] Sep, Carpal tunnel syndrome, bila teral G56.03 [facility] [address] [place] [id number] [address] [place] [address] Sep, Chronic migraine G43.709 [facility] [address] [place] [id number] [address] [place] [address] Aug, [facility] [address] [place] [id number] [address] [place] [address] Jul, Seasonal allergic rhinitis, unspecified allergic rhinitis trigger J30.2 [facility] [address] [facility] [id number] [address] [place] [address] Jul, Seasonal allergic rhinitis, unspecified allergic rhinitis trigger J30.2 [facility] [address] [place] [id number] [address] [place] [address] Jul, Chronic migraine G43.709 [facility] [address] [place] [id number] [address] [place] [address] Jun, [facility] [address] [id number] [address] [place] [id number] May, Dental caries K02.9 [facility] [address] [facility] [id number] [address] [place] [address] 12 May, 2017 Chronic migraine G43.709 [place] [address] [facility] [id number] [place] [address] Apr, Chronic migraine G43.709 ; I yvette deficiency anemia, unspecified iron deficiency anemia type D50.9 ; Perimenopausal N95.1 and Vitamin D deficiency E55.9 [place] [address] [address] [facility] [id number] [address] [place] [address] Mar, [place] [address] [address] Mar, Seasonal allergic rhinitis, unspecified allergic rhinitis trigger J30.2 [place] [address] N [facility] [id number] [address] [place] [address] Mar, Chronic migraine G43.709 [place] [address] [address] Mar, [place] [address] [address] [facility] [id number] [address] [place] [address] Mar, Chronic migraine G43.709 ; I rregular menses N92.6 ; Iron deficiency anemia, unspecified iron deficiency anemia type D50.9 and General medical exam Z00.00 [facility] [address] [facility] [id number] [address] [place] [address] Mar, Chronic migraine G43.709 ; I yvette deficiency anemia, unspecified iron deficiency anemia type D50.9 ; Irregular menses N92.6 and General medical exam Z00.00 [facility] [address] [id number] [address] [place] [address] [id number] Feb, Dental examination Z01.20 [facility] [address] [facility] [id number] [address] [place] [address] Feb, Chronic tension-type headach e, 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 and Seasonal allergic rhinitis, unspecified allergic rhinitis trigger J30.2 [facility] [address] [facility] [id number] [address] [place] [address] Feb, [facility] [address] [facility] [id number] [address] [place] [address] Jan, Seasonal allergic rhinitis, unspecified allergic rhinitis trigger J30.2 [facility] [address] [facility] [id number] [address] [place] [address] December, Chronic tension-type headach e, 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 [facility] [address] [place] [id number] [address] [place] [address] [id number] December, Dental examination Z01.20 [facility] [address] [place] [id number] [address] [place] [address] December, [facility] [address] [place] [id number] [address] [place] [address] Oct, [facility] [address] [place] [id number] [place] [address] Oct, [facility] [address] [facility] [id number] [address] [place] [address] Oct, Sore throat J02.9 and Season al allergic rhinitis, unspecified allergic rhinitis trigger J30.2 [facility] [address] [place] [id number] [address] [place] [address] Oct, [facility] [address] [facility] [id number] [address] [place] [address] Sep, [facility] [address] [place] [id number] [address] [place] [address] Aug, Menstrual periods irregular N92.6 ; Chronic tension-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, 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 ; Acute upper respiratory infection, unspecified J06.9 and Other viral agents as the cause of diseases classified elsewhere B97.89 [facility] [address] [id number] [address] [place] [address] Jul, [facility] [address] [id number] [address] [place] [address] Jul, [facility] [address] [id number] [address] [place] [address] Jul, Migraine without aura and wi thout status migrainosus, not intractable G43.009 [facility] [address] [id number] [address] [place] [address] Jun, [facility] [address] [id number] [address] [place] [address] May, Migraine without aura and wi thout status migrainosus, not intractable G43.009 [facility] [address] [id number] [address] [place] [address] May, [facility] [address] [id number] [address] [place] [address] May, [facility] [address] [id number] [address] [place] [address] [id number] Mar, Dental examination Z01.20 [facility] [address] [id number] [address] [place] [address] Mar, [facility] [address] [id number] [address] [place] [address] Jan, Onychomycosis B35.1 [facility] [address] [id number] [address] [place] [address] Jan, [facility] [address] [id number] [address] [place] [address] December, Dental caries K02.9 [facility] [address] [id number] [address] [place] [address] Nov, Dental examination Z01.20 [facility] [address] [id number] [address] [place] [address] Oct, Dental examination Z01.20 [facility] [address] [id number] [address] [place] [address] Oct, [facility] [address] [facility] [id number] [address] [place] [address] Oct, Migraine G43.909 [facility] [address] [place] [id number] [address] [place] [address] Sep, Onychomycosis B35.1 [facility] [address] [facility] [id number] [address] [place] [address] Sep, [facility] [address] [place] [id number] [address] [place] [address] Aug, [facility] [address] [place] [id number] [address] [place] [address] Jul, [facility] [address] [place] [id number] [address] [place] [address] Apr, [facility] [address] [place] [id number] [address] [place] [address] 10 Apr, 2015 Right anterior knee pain 719 .46 [facility] [address] [place] [id number] [address] [place] [address] Mar, Tendonitis 726.90 ; HTN (hyp ertension) 401.9 ; Tremors of nervous system 781.[address] [facility] [address] [place] [id number] [address] [place] [address] Mar, Thrush 112.0 [facility] [address] [place] [id number] [address] [place] [address] Feb, [facility] [address] [place] [id number] [place] [address] Feb, Tremors of nervous system 78 1.0 and Carpal tunnel syndrome 354.0 [facility] [address] [place] [id number] [address] [place] [address] Jan, Anxiety 300.00 ; Tremors of nervous system 781.[address] [facility] [address] [id number] [address] [place] [address] Jan, Anxiety 300.00 ; Tremors of nervous system 781.[address] [facility] [address] [id number] [address] [place] [address] Jan, Sinusitis 473.9 [facility] [address] [id number] [address] [place] [address] December, [facility] [address] [id number] [address] [place] [address] December, [facility] [address] [facility] [id number] [address] [place] [address] December, [facility] [address] [facility] [id number] [address] [place] [address] December, [facility] [address] [facility] [id number] [address] [place] [address] December, [facility] [address] [facility] [id number] [address] [place] [address] Nov, [facility] [address] [facility] [id number] [address] [place] [address] Nov, [facility] [address] [id number] [address] [place] [address] Sep, [facility] [address] [id number] [address] [place] [address] Sep, [facility] [address] [id number] [address] [place] [address] Sep, [facility] [address] [facility] [id number] [address] [place] [address] Sep, [facility] [address] [facility] [id number] [address] [place] [address] Jul, [facility] [address] [id number] [address] [place] [address], [place] [address] Jul, [facility] [address] [id number] [address] [place] [address], [place] [address] Jul, [facility] [address] [id number] [address] [place] [address], [place] [address] Jul, [facility] [address] [id number] [address] [place] [address], [place] [address] Jul, [facility] [address] [id number] [address] [place] [address], [place] [address] Jul, [facility] [address] [id number] [address] [place] [address], [place] [address] Jul, [facility] [address] [id number] [address] [place] [address], [place] [address] Jul, [facility] [address] [id number] [address] [place] [address], [place] [address] Jul, [facility] [address] [id number] [address] [place] [address], [place] [address] Jul, [facility] [address] [id number] [address] [place] [address], [place] [address] Jun, [facility] [address] [id number] [address] [place] [address], [place] [address] Jun, [facility] [address] [id number] [address] [place] [address], [place] [address] Jun, [facility] [address] [id number] [address] [place] [address], [place] [address] Jun, [facility] [address] [id number] [address] [place] [address], [place] [address] May, [facility] [address] [id number] [address] [place] [address], [place] [address] May, [facility] [address] [id number] [facility] [place] [address] 14 May, 2013 [facility] [address] [id number] [address] [place] [address], [place] [address] 14 May, 2014 [facility] [address] [id number] [address] [place] [address], [place] [address] 17 Apr, 2013 [facility] [address] [id number] [address] [place] [address], [place] [address] 17 Apr, 2013 [facility] [address] [id number] [address] [place] [address], [place] [address] 17 Apr, 2013 [facility] [address] [id number] [address] [place] [address], [place] [address] 17 Apr, 2013 [facility] [address] [id number] [address] [place] [address], [place] [address] 16 Apr, 2013 [facility] [address] [id number] [address] [place] [address], [place] [address] 16 Apr, 2013 [facility] [address] [id number] [address] [place] [address], [place] [address] 03 Apr, 2013 [facility] [address] [id number] [address] [place] [address], [place] [address] 03 Apr, 2013 [facility] [address] [id number] [address] [place] [address], [place] [address] Mar, [facility] [address] [id number] [address] [place] [address], [place] [address] Mar, [facility] [address] [id number] [address] [place] [address], [place] [address] Feb, [facility] [address] [id number] [address] [place] [address], [place] [address] Feb, [facility] [address] [id number] [address] [place] [address], [place] [address] Feb, [facility] [address] [id number] [address] [place] [address], [place] [address] Feb, [facility] [address] [id number] [facility] [place] [address] Jan, [facility] [address] [id number] [facility] [place] [address] Jan, [facility] [address] [id number] [facility] [place] [address] Jan, [facility] [address] [id number] [address] [place] [address], [place] [address] Jan, [facility] [address] [id number] [address] [place] [address], [place] [address] Jan, [facility] [address] [id number] [address] [place] [address], [place] [address] Jan, [facility] [address] [id number] [address] [place] [address], [place] [address] December, [facility] [address] [id number] [address] [place] [address], [place] [address] December, [facility] [address] [id number] [address] [place] [address], [place] [address] December, [facility] [address] [id number] [address] [place] [address], [place] [address] December, [facility] [address] [id number] [address] [place] [address], [place] [address] December, [facility] [address] [id number] [address] [place] [address], [place] [address] Nov, [facility] [address] [id number] [address] [place] [address], [place] [address] Nov, [facility] [address] [id number] [address] [place] [address], [place] [address] Nov, [facility] [address] [id number] [address] [place] [address], [place] [address] Nov, [facility] [address] [id number] [facility] [place] [address] Nov, [facility] [address] [id number] [address] [place] [address], [place] [address] Nov, [facility] [address] [id number] [address] [place] [address], [place] [address] Oct, [facility] [address] [id number] [address] [place] [address], [place] [address] Oct, [facility] [address] [id number] [address] [place] [address], [place] [address] Oct, [facility] [address] [id number] [address] [place] [address], [place] [address] 07 Oct, 2013 [facility] [address] [id number] [address] [place] [address], [place] [address] 14 Sep, 2013 [facility] [address] [id number] [address] [place] [address], [place] [address] 14 Sep, 2013 [facility] [address] [id number] [address] [place] [address], [place] [address] 10 Sep, 2013 [facility] [address] [id number] [address] [place] [address], [place] [address] 10 Sep, 2013 [facility] [address] [id number] [address] [place] [address], [place] [address] 07 Sep, 2013 [facility] [address] [id number] [address] [place] [address], [place] [address] 06 Sep, 2013 [facility] [address] [id number] [address] [place] [address], [place] [address] 06 Sep, 2013 [facility] [address] [id number] [address] [place] [address], [place] [address] 05 Sep, 2013 [facility] [address] [id number] [address] [place] [address], [place] [address] 05 Sep, 2013 [facility] [address] [id number] [address] [place] [address], [place] [address] Sep, [facility] [address] [id number] [address] [place] [address], [place] [address] Sep, [facility] [address] [id number] [address] [place] [address], [place] [address] Sep, [facility] [address] [id number] [address] [place] [address], [place] [address] Sep, [facility] [address] [id number] [address] [place] [address], [place] [address] Aug, [facility] [address] [id number] [address] [place] [address], [place] [address] Aug, [facility] [address] [id number] [address] [place] [address], [place] [address] Jul, [facility] [address] [id number] [address] [place] [address], [place] [address] Jul, [facility] [address] [id number] [address] [place] [address], [place] [address] Jun, [facility] [address] [id number] [address] [place] [address], [place] [address] Jun, [facility] [address] [id number] [address] [place] [address], [place] [address] May, [facility] [address] [id number] [address] [place] [address], [place] [address] Apr, [facility] [address] [id number] [address] [place] [address], [place] [address] Mar, [facility] [address] [id number] [address] [place] [address], [place] [address] Jan, [facility] [address] [id number] [address] [place] [address], [place] [address] December, [facility] [address] [id number] [address] [place] [address], [place] [address] December, [facility] [address] [id number] [address] [place] [address], [place] [address] Oct, [facility] [address] [id number] [address] [place] [address], [place] [address] Oct, [facility] [address] [id number] [address] [place] [address], [place] [address] 11 Sep, 2012 [facility] [address] [id number] [address] [place] [address], [place] [address] Aug, [facility] [address] [id number] [address] [place] [address], [place] [address] Aug, [facility] [address] [id number] [address] [place] [address], [place] [address] Jul, [facility] [address] [id number] [address] [place] [address], [place] [address] Jul, [facility] [place] [address] [id number] [address] [place] [address], [place] [address] Mar, [facility] [address] [id number] [address] [place] [address], [place] [address] Mar, [facility] [address] [id number] [address] [place] [address], [place] [address] Feb, [facility] [address] [id number] [address] [place] [address], [place] [address] Feb, [facility] [place] [address] [id number] [address] [place] [address], [place] [address] Feb, [facility] [address] [id number] [address] [place] [address], [place] [address] Jan, [facility] [address] [id number] [address] [place] [address], [place] [address] Nov, [facility] [address] [id number] [address] [place] [address], [place] [address] 17 Sep, 2011 [facility] [address] [id number] [address] [place] [address], [place] [address] 15 Sep, 2011 [facility] [address] [id number] [address] [place] [address] Sep, [facility] [address] [id number] [address] [place] [address] Aug, [facility] [address] [id number] [address] [place] [address] Aug, [facility] [address] [id number] [address] [place] [address] Aug, [facility] [address] [id number] [address] [place] [address] Jun, [facility] [facility] [address] [id number] [address] [place] [phone] Jun, [facility] [address] [id number] [address] [place] [phone] Jun, [facility] [address] [id number] [address] [place] [phone] Jun, [facility] [address] [id number] [address] [place] [phone] May, [facility] [address] [id number] [address] [place] [phone] May, [facility] [address] [id number] [address] [place] [phone] May, [facility] [address] [id number] [address] [place] [phone] May, [facility] [address] [id number] [address] [place] [phone] Jun, [facility] [address] [id number] [address] [place] [phone] December, [facility] [address] [id number] [address] [place] [phone] May, IMMUNIZATIONS No Known Immunizations SOCIAL HISTORY Never Assessed REASON FOR VISIT medication request PLAN OF CARE VITAL SIGNS MEDICATIONS Medication Instructions Dosage Frequency Start Date End Date Duration S lisa Diflucan 150 MG Orally now and may repeat in three days 1 tablet Jan, Jan, 2 doses Active RESULTS No Results PROCEDURES No Known [...]
--- OUTSIDE RECORDS SUMMARY | 2020-03-17 19:20 | XMS REPORT ---
Author Author Ann RAMOS Organization [facility] Address [address] [place] [address] Care Team Providers Care Meat Hostess Name Role Phone RACHEL VICTOR M Unavailable PROBLEMS Type Condition ICD9-CM Code [id number] Code Onset Dates Condition S tatus SNOMED Code Problem Perimenopausal N95.1 Active 70864 [id number] Problem Seasonal allergic rhinitis, unspecified allergic rhinitis trigger J30.2 Active 622978870 Problem HTN (hypertension) 401.9 Active 3 4692542 Problem Vitamin D deficiency E55.9 Active 71945372 Problem Anxiety F41.9 Active 71759837 Problem Nocturnal dyspnea R06.00 Active 24 9757750 Problem Iron deficiency anemia, unspecified iron deficiency an emia type D50.9 Active 80407703 Problem Chronic migraine G43.709 Active 377 36209 Problem Daytime hypersomnia G47.19 Active [id number] Problem Carpal tunnel syndrome, bilateral G56.03 Active [id number] ALLERGIES No Information ENCOUNTERS Encounter Location Date Diagnosis [place] [address] [place] [id number] [place] [address] Feb, [place] [id number] [place] [address] Feb, Anxiety F41.9 [place] [id number] [place] [address] Feb, Exposure to pertussis Z20.81 8 [place] [id number] [place] [address] Jan, [place] [id number] [place] [address] Jan, Chronic migraine G43.709 and Anxiety F41.9 [place] [address] [place] [id number] [place] [address] December, Anxiety F41.9 [facility] [address] [address] Nov, Chronic migraine G43.709 ; S easonal allergic rhinitis, unspecified allergic rhinitis trigger J30.2 ; Vitamin D deficiency E55.9 ; Nocturnal dyspnea R06.00 ; Daytime hypersomnia G47.[address] [facility] [address] [place] [id number] [place] [address] Nov, Chronic migraine G43.709 [place] [address] [address] Oct, [facility] [address] [address] Sep, Carpal tunnel syndrome, bila teral G56.03 [facility] [address] [place] [id number] [place] [address] Sep, Chronic migraine G43.709 [facility] [address] [address] Aug, [facility] [address] [place] [id number] [place] [address] Jul, Seasonal allergic rhinitis, unspecified allergic rhinitis trigger J30.2 [facility] [address] [place] [address] Jul, Seasonal allergic rhinitis, unspecified allergic rhinitis trigger J30.2 [facility] [address] [place] [id number] [address] [place] [address] Jul, Chronic migraine G43.709 [facility] [address] [place] [id number] [address] [place] [address] Jun, [facility] [address] [id number] [address] [place] [address] [id number] May, Dental caries K02.9 [place] [id number] [place] [id number] [address] [place] [address] 12 May, 2017 Chronic migraine G43.709 [place] [address] [address] Apr, Chronic migraine G43.709 ; I yvette deficiency anemia, unspecified iron deficiency anemia type D50.9 ; Perimenopausal N95.1 and Vitamin D deficiency E55.9 [place] [address] [address] Mar, [place] [address] [address] Mar, Seasonal allergic rhinitis, unspecified allergic rhinitis trigger J30.2 [place] [address] [address] Mar, Chronic migraine G43.709 [place] [address] [address] Mar, [place] [address] [address] Mar, Chronic migraine G43.709 ; I rregular menses N92.6 ; Iron deficiency anemia, unspecified iron deficiency anemia type D50.9 and General medical exam Z00.00 [place] [address] [place] [address] Mar, Chronic migraine G43.709 ; I yvette deficiency anemia, unspecified iron deficiency anemia type D50.9 ; Irregular menses N92.6 and General medical exam Z00.00 [facility] [address] [place] [id number] [address] [place] [address] [id number] 20 Feb, [address] [facility] [address] [place] [id number] [address] [place] [address] 18 Feb, 2017 Chronic tension-type headach e, 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 and Seasonal allergic rhinitis, unspecified allergic rhinitis trigger J30.2 [facility] [address] [facility] [id number] [address] [place] [address] Feb, [facility] [address] [facility] [id number] [address] [place] [address] Jan, Seasonal allergic rhinitis, unspecified allergic rhinitis trigger J30.2 [facility] [address] [facility] [id number] [address] [place] [address] December, Chronic tension-type headach e, 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 [facility] [address] [id number] [address] [place] [address] [id number] December, Dental examination Z01.20 [facility] [address] [place] [id number] [place] [address] December, [facility] [address] [place] [id number] [address] [place] [address] Oct, [facility] [address] [facility] [id number] [address] [place] [address] Oct, [facility] [address] [facility] [id number] [address] [place] [address] Oct, Sore throat J02.9 and Season al allergic rhinitis, unspecified allergic rhinitis trigger J30.2 [facility] [address] [facility] [id number] [address] [place] [address] Oct, [facility] [address] [facility] [id number] [address] [place] [address] Sep, [facility] [address] [facility] [id number] [address] [place] [address] Aug, Menstrual periods irregular N92.6 ; Chronic tension-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, 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 ; Acute upper respiratory infection, unspecified J06.9 and Other viral agents as the cause of diseases classified elsewhere B97.89 [facility] [address] [facility] [id number] [address] [place] [address] Jul, [facility] [address] [place] [id number] [address] [place] [address] Jul, [facility] [address] [id number] [address] [place] [address] Jul, Migraine without aura and wi thout status migrainosus, not intractable G43.009 [facility] [address] [id number] [address] [place] [address] Jun, [facility] [address] [id number] [address] [place] [address] May, Migraine without aura and wi thout status migrainosus, not intractable G43.009 [facility] [address] [id number] [address] [place] [address] May, [facility] [address] [id number] [address] [place] [address] May, [facility] [address] [id number] [address] [place] [address] [id number] Mar, Dental examination Z01.20 [facility] [address] [id number] [address] [place] [address] Mar, [facility] [address] [id number] [address] [place] [address] Jan, Onychomycosis B35.1 [facility] [address] [id number] [address] [place] [address] Jan, [facility] [address] [id number] [address] [place] [address] December, Dental caries K02.9 [facility] [address] [id number] [address] [place] [address] Nov, Dental examination Z01.20 [facility] [address] [id number] [address] [place] [address] Oct, Dental examination Z01.20 [facility] [address] [id number] [address] [place] [address] Oct, [facility] [address] [place] [id number] [address] [place] [address] Oct, Migraine G43.909 [facility] [address] [facility] [id number] [address] [place] [address] Sep, Onychomycosis B35.1 [facility] [address] [place] [id number] [address] [place] [address] Sep, [facility] [address] [place] [id number] [address] [place] [address] Aug, [facility] [address] [place] [id number] [address] [place] [address] Jul, [facility] [address] [place] [id number] [address] [place] [address] [address], [address] [facility] [address] [place] [id number] [place] [address] 10 Apr, 2015 Right anterior knee pain 719 .46 [facility] [address] [place] [id number] [address] [place] [address] Mar, Tendonitis 726.90 ; HTN (hyp ertension) 401.9 ; Tremors of nervous system 781.[address] [facility] [address] [place] [id number] [address] [place] [address] Mar, Thrush 112.0 [facility] [address] [place] [id number] [address] [place] [address] Feb, [facility] [address] [place] [id number] [address] [place] [address] Feb, Tremors of nervous system 78 1.0 and Carpal tunnel syndrome 354.0 [facility] [address] [place] [id number] [address] [place] [address] Jan, Anxiety 300.00 ; Tremors of nervous system 781.[address] [facility] [address] [place] [id number] [address] [place] [address] Jan, Anxiety 300.00 ; Tremors of nervous system 781.0 and Tendonitis 726.90 [facility] [address] [id number] [address] [place] [address] Jan, Sinusitis 473.9 [facility] [address] [id number] [address] [place] [address] December, [facility] [address] [id number] [address] [place] [address] December, [facility] [address] [id number] [address] [place] [address] December, [facility] [address] [id number] [address] [place] [address] December, [facility] [address] [id number] [address] [place] [address] December, [facility] [address] [id number] [address] [place] [address] Nov, [facility] [address] [id number] [address] [place] [address] Nov, [facility] [address] [id number] [address] [place] [address] Sep, [facility] [address] [id number] [address] [place] [address] Sep, [facility] [address] [id number] [address] [place] [address] Sep, [facility] [address] [id number] [address] [place] [address] Sep, [facility] [address] [id number] [address] [place] [address] Jul, [facility] [address] [id number] [address] [place] [address] Jul, [facility] [place] [facility] [address] [id number] [address] [place] [address], [place] [address] Jul, [facility] [address] [id number] [address] [place] [address], [place] [address] Jul, [facility] [place] [facility] [address] [id number] [address] [place] [address], [place] [address] Jul, [facility] [address] [id number] [address] [place] [address], [place] [address] Jul, [facility] [address] [id number] [address] [place] [address], [place] [address] Jul, [facility] [address] [id number] [address] [place] [address], [place] [address] Jul, [facility] [address] [id number] [address] [place] [address], [place] [address] Jul, [facility] [address] [id number] [address] [place] [address], [place] [address] Jul, [facility] [address] [id number] [address] [place] [address], [place] [address] Jun, [facility] [address] [id number] [address] [place] [address], [place] [address] Jun, [facility] [address] [id number] [address] [place] [address], [place] [address] Jun, [facility] [place] [facility] [address] [id number] [address] [place] [address], [place] [address] Jun, [facility] [address] [id number] [address] [place] [address], [place] [address] May, [facility] [place] [facility] [address] [id number] [address] [place] [address], [place] [address] May, [facility] [place] [facility] [address] [id number] [address] [place] [address], [place] [address] May, [facility] [place] [facility] [address] [id number] [address] [place] [address], [place] [address] May, [facility] [address] [id number] [facility] [place] [address] 17 Apr, 2013 [facility] [place] [facility] [address] [id number] [address] [place] [address], [place] [address] 17 Apr, 2013 [facility] [place] [facility] [address] [id number] [address] [place] [address], [place] [address] 17 Apr, 2013 [facility] [place] [facility] [address] [id number] [address] [place] [address], [place] [address] 17 Apr, 2013 [facility] [address] [id number] [address] [place] [address], [place] [address] 16 Apr, 2013 [facility] [place] [facility] [address] [id number] [address] [place] [address], [place] [address] 16 Apr, 2014 [facility] [address] [id number] [address] [place] [address], [place] [address] Apr, [facility] [place] [facility] [address] [id number] [address] [place] [address], [place] [address] Apr, [facility] [place] [facility] [address] [id number] [address] [place] [address], [place] [address] Mar, [facility] [place] [facility] [address] [id number] [address] [place] [address], [place] [address] Mar, [facility] [place] [facility] [address] [id number] [address] [place] [address], [place] [address] Feb, [facility] [place] [facility] [address] [id number] [address] [place] [address], [place] [address] Feb, [facility] [place] [facility] [address] [id number] [address] [place] [address], [place] [address] Feb, [facility] [place] [facility] [address] [id number] [address] [place] [address], [place] [address] Feb, [facility] [place] [facility] [address] [id number] [address] [place] [address], [place] [address] Jan, [facility] [place] [facility] [address] [id number] [address] [place] [address], [place] [address] Jan, [facility] [address] [id number] [facility] [place] [address] Jan, [facility] [address] [id number] [address] [place] [address], [place] [address] Jan, [facility] [address] [id number] [address] [place] [address], [place] [address] Jan, [facility] [address] [id number] [address] [place] [address], [place] [address] Jan, [facility] [address] [id number] [address] [place] [address], [place] [address] December, [facility] [address] [id number] [address] [place] [address], [place] [address] December, [facility] [address] [id number] [address] [place] [address], [place] [address] December, [facility] [address] [id number] [address] [place] [address], [place] [address] December, [facility] [address] [id number] [address] [place] [address], [place] [address] December, [facility] [address] [id number] [address] [place] [address], [place] [address] Nov, [facility] [address] [id number] [address] [place] [address], [place] [address] Nov, [facility] [address] [id number] [address] [place] [address], [place] [address] Nov, [facility] [address] [id number] [address] [place] [address], [place] [address] Nov, [facility] [address] [id number] [address] [place] [address], [place] [address] Nov, [facility] [address] [id number] [address] [place] [address], [place] [address] Nov, [facility] [place] [facility] [address] [id number] [facility] [place] [address] Oct, [facility] [place] [facility] [address] [id number] [facility] [place] [address] Oct, [facility] [place] [facility] [address] [id number] [facility] [place] [address] Oct, [facility] [place] [facility] [address] [id number] [address] [place] [address], [place] [address] 07 Oct, 2013 [facility] [place] [facility] [address] [id number] [address] [place] [address], [place] [address] 14 Sep, 2013 [facility] [place] [facility] [address] [id number] [address] [place] [address], [place] [address] 14 Sep, 2013 [facility] [place] [facility] [address] [id number] [address] [place] [address], [place] [address] 10 Sep, 2013 [facility] [place] [facility] [address] [id number] [address] [place] [address], [place] [address] 10 Sep, 2013 [facility] [place] [facility] [address] [id number] [address] [place] [address], [place] [address] 07 Sep, 2013 [facility] [place] [facility] [address] [id number] [address] [place] [address], [place] [address] Sep, [facility] [place] [facility] [address] [id number] [address] [place] [address], [place] [address] Sep, 2013 [facility] [place] [facility] [address] [id number] [address] [place] [address], [place] [address] Sep, 2013 [facility] [place] [facility] [address] [id number] [address] [place] [address], [place] [address] Sep, [facility] [place] [facility] [address] [id number] [address] [place] [address], [place] [address] Sep, 2013 [facility] [place] [facility] [address] [id number] [address] [place] [address], [place] [address] Sep, 2013 [facility] [place] [facility] [address] [id number] [address] [place] [address] Sep, [facility] [address] [id number] [address] [place] [address], [place] [address] Sep, [facility] [address] [id number] [address] [place] [address], [place] [address] Aug, [facility] [address] [id number] [address] [place] [address], [place] [address] Aug, [facility] [address] [id number] [address] [place] [address], [place] [address] Jul, [facility] [address] [id number] [address] [place] [address], [place] [address] Jul, [facility] [address] [id number] [address] [place] [address], [place] [address] Jun, [facility] [address] [id number] [address] [place] [address], [place] [address] Jun, [facility] [address] [id number] [address] [place] [address], [place] [address] May, [facility] [address] [id number] [address] [place] [address], [place] [address] Apr, [facility] [place] [address] [id number] [address] [place] [address], [place] [address] Mar, [facility] [address] [id number] [address] [place] [address], [place] [address] Jan, [facility] [address] [id number] [address] [place] [address], [place] [address] December, [facility] [address] [id number] [address] [place] [address], [place] [address] December, [facility] [address] [id number] [address] [place] [address], [place] [address] Oct, [facility] [address] [id number] [address] [place] [address], [place] [address] Oct, [facility] [address] [id number] [address] [place] [address], [place] [address] Sep, [facility] [address] [id number] [address] [place] [address], [place] [address] Aug, [facility] [address] [id number] [address] [place] [address], [place] [address] Aug, [facility] [address] [id number] [address] [place] [address], [place] [address] Jul, [facility] [address] [id number] [address] [place] [address], [place] [address] Jul, [facility] [address] [id number] [address] [place] [address], [place] [address] Mar, [facility] [address] [id number] [address] [place] [address], [place] [address] Mar, [facility] [address] [id number] [address] [place] [address], [place] [address] Feb, [facility] [address] [id number] [address] [place] [address], [place] [address] Feb, [facility] [address] [id number] [address] [place] [address], [place] [address] Feb, [facility] [address] [id number] [address] [place] [address], [place] [address] Jan, [facility] [address] [id number] [address] [place] [address], [place] [address] Nov, [facility] [address] [id number] [address] [place] [address], [place] [address] Sep, [facility] [address] [id number] [address] [place] [address], [place] [address] Sep, [facility] [address] [id number] [address] [place] [address], [place] [address] Sep, [facility] [address] [id number] [address] [place] [id number] Aug, [facility] [address] [id number] [address] [place] [address] Aug, [facility] [address] [id number] [address] [place] [address] Aug, [facility] [address] [id number] [address] [place] [address] Jun, [facility] [address] [id number] [address] [place] [address] Jun, [facility] [address] [id number] [address] [place] [address] Jun, [facility] [address] [id number] [address] [place] [address] Jun, [facility] [address] [id number] [address] [place] [id number] May, [facility] [address] [id number] [address] [place] [id number] May, [facility] [address] [id number] [address] [place] [id number] May, [facility] [address] [id number] [address] [place] [id number] May, [facility] [address] [id number] [address] [place] [id number] Jun, [facility] [address] [id number] [address] [place] [phone] December, [facility] [address] [id number] [address] [place] [phone] May, IMMUNIZATIONS No Known Immunizations SOCIAL HISTORY Never Assessed REASON FOR VISIT Refill request PLAN OF CARE VITAL SIGNS MEDICATIONS Medication Instructions Dosage Frequency Start Date End Date Duration S oseasus Topiramate 50 mg TAKE ONE TABLET BY MOUTH TWICE DAILY 30 Active Promethazine HCl 25 MG Orally with severe migraine 1 tablet as needed Active RESULTS No Results PROCEDURES No Known [...]
--- OUTSIDE RECORDS SUMMARY | 2020-03-17 19:20 | XMS REPORT ---
Author Author Ann RAMOS Organization [facility] [place] Address [address] [place] [address] Care Team Providers Care Education Spec Name Role Phone RACHEL VICTOR M Unavailable PROBLEMS Type Condition ICD9-CM Code [id number] Code Onset Dates Condition S tatus SNOMED Code Problem Perimenopausal N95.1 Active 92976 [id number] Problem Seasonal allergic rhinitis, unspecified allergic rhinitis trigger J30.2 Active 988082719 Problem HTN (hypertension) 401.9 Active 3 0839852 Problem Vitamin D deficiency E55.9 Active 51606208 Problem Anxiety F41.9 Active 47881913 Problem Nocturnal dyspnea R06.00 Active 24 9899177 Problem Iron deficiency anemia, unspecified iron deficiency an emia type D50.9 Active 82030338 Problem Chronic migraine G43.709 Active 377 84315 Problem Daytime hypersomnia G47.19 Active 41436632966312 Problem Carpal tunnel syndrome, bilateral G56.03 Active [id number] ALLERGIES No Information ENCOUNTERS Encounter Location Date Diagnosis [place] [address] [place] [id number] [place] [address] Feb, Exposure to pertussis Z20.81 8 [place] [address] [place] [id number] [place] [address] Jan, [place] [address] [address] [facility] [id number] [address] [place] [address] Jan, Chronic migraine G43.709 and Anxiety F41.9 [place] [address] [place] [id number] [address] [place] [address] December, Anxiety F41.9 [place] [address] [address] [facility] [id number] [address] [place] [address] Nov, Chronic migraine G43.709 ; S easonal allergic rhinitis, unspecified allergic rhinitis trigger J30.2 ; Vitamin D deficiency E55.9 ; Nocturnal dyspnea R06.00 ; Daytime hypersomnia G47.19 and Anxiety F41.9 [facility] [place] [address] [facility] [id number] [address] [place] [address] Nov, Chronic migraine G43.709 [place] [id number] [facility] [id number] [address] [place] [address] Oct, [place] [address] [address] [facility] [id number] [place] [address] Sep, Carpal tunnel syndrome, bila teral G56.03 [place] [address] [address] [facility] [id number] [place] [address] Sep, Chronic migraine G43.709 [place] [address] [address] Aug, [place] [address] [place] [id number] [place] [address] Jul, Seasonal allergic rhinitis, unspecified allergic rhinitis trigger J30.2 [place] [address] [address] Jul, Seasonal allergic rhinitis, unspecified allergic rhinitis trigger J30.2 [place] [id number] [place] [address] Jul, Chronic migraine G43.709 [facility] [place] [address] [place] [id number] [address] [place] [address] Jun, [facility] [address] [id number] [address] [place] [id number] May, Dental caries K02.9 [facility] [place] [address] [facility] [id number] [address] [place] [address] May, Chronic migraine G43.709 [place] [address] [place] [id number] [address] [place] [address] Apr, Chronic migraine G43.709 ; I yvette deficiency anemia, unspecified iron deficiency anemia type D50.9 ; Perimenopausal N95.1 and Vitamin D deficiency E55.9 [place] [id number] [facility] [id number] [address] [place] [address] Mar, [place] [address] [place] [id number] [place] [address] Mar, Seasonal allergic rhinitis, unspecified allergic rhinitis trigger J30.2 [place] [address] [place] [id number] [place] [address] Mar, Chronic migraine G43.709 [place] [address] [address] Mar, [place] [address] [place] [id number] [place] [address] Mar, Chronic migraine G43.709 ; I rregular menses N92.6 ; Iron deficiency anemia, unspecified iron deficiency anemia type D50.9 and General medical exam Z00.00 [place] [address] [place] [id number] [place] [address] Mar, Chronic migraine G43.709 ; I yvette deficiency anemia, unspecified iron deficiency anemia type D50.9 ; Irregular menses N92.6 and General medical exam Z00.[address] [facility] [address] [place] [id number] [address] [place] [address] [id number] Feb, Dental examination Z01.20 [place] [address] [place] [id number] [address] [place] [address] 18 Feb, 2017 Chronic tension-type headach e, 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 and Seasonal allergic rhinitis, unspecified allergic rhinitis trigger J30.2 [facility] [place] [address] [facility] [id number] [address] [place] [address] Feb, [place] [address] [place] [id number] [address] [place] [address] Jan, Seasonal allergic rhinitis, unspecified allergic rhinitis trigger J30.2 [facility] [place] [address] [facility] [id number] [address] [place] [address] December, Chronic tension-type headach e, 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 [facility] [address] [id number] [address] [place] [address] [id number] December, Dental examination Z01.20 [facility] [place] [address] [facility] [id number] [address] [place] [address] December, [facility] [place] [address] [facility] [id number] [address] [place] [address] Oct, [facility] [place] [address] [facility] [id number] [place] [address] Oct, [facility] [address] [facility] [id number] [address] [place] [address] Oct, Sore throat J02.9 and Season al allergic rhinitis, unspecified allergic rhinitis trigger J30.2 [facility] [place] [address] [facility] [id number] [address] [place] [address] Oct, [facility] [place] [address] [address] Sep, [facility] [place] [address] [facility] [id number] [address] [place] [address] Aug, Menstrual periods irregular N92.6 ; Chronic tension-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, 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 ; Acute upper respiratory infection, unspecified J06.9 and Other viral agents as the cause of diseases classified elsewhere B97.89 [facility] [place] [address] [facility] [id number] [address] [place] [address] Jul, [facility] [place] [address] [place] [id number] [address] [place] [address] Jul, [facility] [place] [address] [place] [id number] [address] [place] [address] Jul, Migraine without aura and wi thout status migrainosus, not intractable G43.009 [facility] [place] [address] [id number] [address] [place] [address] Jun, [facility] [place] [address] [id number] [address] [place] [address] May, Migraine without aura and wi thout status migrainosus, not intractable G43.009 [facility] [place] [address] [id number] [address] [place] [address] May, [facility] [place] [address] [id number] [address] [place] [address] May, [facility] [address] [id number] [address] [place] [address] [id number] Mar, Dental examination Z01.20 [facility] [place] [address] [id number] [address] [place] [address] Mar, [facility] [place] [address] [id number] [address] [place] [address] Jan, Onychomycosis B35.1 [facility] [place] [address] [id number] [address] [place] [address] Jan, [facility] [place] [address] [id number] [address] [place] [address] December, Dental caries K02.9 [facility] [place] [address] [id number] [address] [place] [address] Nov, Dental examination Z01.20 [facility] [place] [address] [id number] [address] [place] [address] Oct, Dental examination Z01.20 [facility] [place] [address] [id number] [address] [place] [address] Oct, [facility] [place] [address] [id number] [address] [place] [address] Oct, Migraine G43.909 [facility] [place] [address] [id number] [address] [place] [address] Sep, Onychomycosis B35.1 [facility] [place] [address] [place] [id number] [address] [place] [address] Sep, [facility] [place] [address] [facility] [id number] [address] [place] [address] Aug, [facility] [place] [address] [place] [id number] [address] [place] [id number] Jul, [facility] [place] [address] [place] [id number] [address] [place] [address] Apr, [facility] [place] [address] [place] [id number] [address] [place] [address] Apr, Right anterior knee pain 719 .46 [place] [address] [place] [id number] [address] [place] [address] Mar, Tendonitis 726.90 ; HTN (hyp ertension) 401.9 ; Tremors of nervous system 781.0 and Anxiety 300.00 [place] [id number] [place] [address] Mar, Thrush 112.0 [place] [address] [address] Feb, [place] [address] [address] Feb, Tremors of nervous system 78 1.0 and Carpal tunnel syndrome 354.0 [place] [address] [place] [id number] [place] [address] Jan, Anxiety 300.00 ; Tremors of nervous system 781.0 and Tendonitis 726.90 [place] [address] [place] [id number] [address] [place] [id number] Jan, Anxiety 300.00 ; Tremors of nervous system 781.0 and Tendonitis 726.90 [place] [address] [address] Jan, Sinusitis 473.9 [facility] [address] [id number] [address] [place] [address], [place] [address] December, [facility] [address] [id number] [address] [place] [address], [place] [address] December, [facility] [address] [id number] [address] [place] [address], [place] [address] December, [facility] [address] [id number] [address] [place] [address], [place] [address] December, [facility] [address] [id number] [address] [place] [address], [place] [address] December, [facility] [address] [id number] [address] [place] [address], [place] [address] Nov, [facility] [address] [id number] [address] [place] [address], [place] [address] Nov, [facility] [address] [id number] [address] [place] [address], [place] [address] Sep, [facility] [address] [id number] [address] [place] [address], [place] [address] Sep, [facility] [address] [id number] [address] [place] [address], [place] [address] Sep, [facility] [address] [id number] [address] [place] [address], [place] [address] Sep, [facility] [address] [id number] [address] [place] [address] Jul, [facility] [address] [id number] [address] [place] [address], [place] [address] Jul, [facility] [address] [id number] [address] [place] [address], [place] [address] Jul, [facility] [address] [id number] [address] [place] [address], [place] [address] Jul, [facility] [address] [id number] [address] [place] [address], [place] [address] Jul, [facility] [address] [id number] [address] [place] [address], [place] [address] Jul, [facility] [address] [id number] [address] [place] [address], [place] [address] Jul, [facility] [address] [id number] [address] [place] [address], [place] [address] Jul, [facility] [address] [id number] [address] [place] [address], [place] [address] Jul, [facility] [address] [id number] [address] [place] [address], [place] [address] Jul, [facility] [address] [id number] [address] [place] [address], [place] [address] Jun, [facility] [address] [id number] [address] [place] [address], [place] [address] Jun, [facility] [address] [id number] [address] [place] [address], [place] [address] Jun, [facility] [address] [id number] [address] [place] [address], [place] [address] Jun, [facility] [address] [id number] [address] [place] [address], [place] [address] May, [facility] [address] [id number] [address] [place] [address], [place] [address] May, [facility] [address] [id number] [address] [place] [address], [place] [address] May, [facility] [address] [id number] [address] [place] [address], [place] [address] May, [facility] [address] [id number] [address] [place] [address], [place] [address] Apr, [facility] [address] [id number] [address] [place] [address], [place] [address] 17 Apr, 2014 [facility] [address] [id number] [address] [place] [address], [place] [address] 17 Apr, 2013 [facility] [address] [id number] [address] [place] [address], [place] [address] 17 Apr, 2013 [facility] [address] [id number] [address] [place] [address], [place] [address] 16 Apr, 2013 [facility] [address] [id number] [address] [place] [address], [place] [address] 16 Apr, 2013 [facility] [address] [id number] [address] [place] [address], [place] [address] Apr, 2013 [facility] [address] [id number] [address] [place] [address], [place] [address] Apr, [facility] [address] [id number] [address] [place] [address], [place] [address] Mar, [facility] [address] [id number] [address] [place] [address], [place] [address] Mar, [facility] [address] [id number] [address] [place] [address], [place] [address] Feb, [facility] [address] [id number] [address] [place] [address], [place] [address] Feb, [facility] [address] [id number] [address] [place] [address], [place] [address] Feb, [facility] [address] [id number] [address] [place] [address], [place] [address] Feb, [facility] [address] [id number] [address] [place] [address], [place] [address] Jan, [facility] [address] [id number] [address] [place] [address], [place] [address] Jan, [facility] [address] [id number] [address] [place] [address], [place] [address] Jan, [facility] [address] [id number] [address] [place] [address], [place] [address] Jan, [facility] [address] [id number] [facility] [place] [address] Jan, [facility] [address] [id number] [address] [place] [address], [place] [address] Jan, [facility] [address] [id number] [address] [place] [address], [place] [address] December, [facility] [address] [id number] [address] [place] [address], [place] [address] December, [facility] [address] [id number] [address] [place] [address], [place] [address] December, [facility] [address] [id number] [address] [place] [address], [place] [address] December, [facility] [address] [id number] [address] [place] [address], [place] [address] December, [facility] [address] [id number] [address] [place] [address], [place] [address] Nov, [facility] [address] [id number] [address] [place] [address], [place] [address] Nov, [facility] [address] [id number] [address] [place] [address], [place] [address] Nov, [facility] [address] [id number] [address] [place] [address], [place] [address] Nov, [facility] [address] [id number] [address] [place] [address], [place] [address] Nov, [facility] [address] [id number] [address] [place] [address], [place] [address] Nov, [facility] [address] [id number] [address] [place] [address], [place] [address] Oct, [facility] [address] [id number] [address] [place] [address], [place] [address] Oct, [facility] [address] [id number] [facility] [place] [address] 07 Oct, 2013 [facility] [address] [id number] [address] [place] [address], [place] [address] Oct, [facility] [address] [id number] [facility] [place] [address] 14 Sep, 2013 [facility] [address] [id number] [address] [place] [address], [place] [address] 14 Sep, 2013 [facility] [address] [id number] [address] [place] [address], [place] [address] 10 Sep, 2013 [facility] [address] [id number] [address] [place] [address], [place] [address] 10 Sep, 2013 [facility] [address] [id number] [address] [place] [address], [place] [address] 07 Sep, 2013 [facility] [address] [id number] [address] [place] [address], [place] [address] Sep, 2013 [facility] [address] [id number] [address] [place] [address], [place] [address] Sep, 2013 [facility] [address] [id number] [address] [place] [address], [place] [address] 05 Sep, 2013 [facility] [address] [id number] [address] [place] [address], [place] [address] Sep, 2013 [facility] [address] [id number] [address] [place] [address], [place] [address] Sep, 2013 [facility] [address] [id number] [address] [place] [address], [place] [address] Sep, 2013 [facility] [address] [id number] [address] [place] [address], [place] [address] Sep, 2013 [facility] [address] [id number] [address] [place] [address], [place] [address] Sep, 2013 [facility] [address] [id number] [address] [place] [address], [place] [address] 14 Aug, 2013 [facility] [address] [id number] [address] [place] [address], [place] [address] Aug, [facility] [address] [id number] [address] [place] [address], [place] [address] Jul, [facility] [address] [id number] [address] [place] [address], [place] [address] Jul, [facility] [address] [id number] [address] [place] [address], [place] [address] Jun, [facility] [address] [id number] [address] [place] [address], [place] [address] Jun, [facility] [address] [id number] [address] [place] [address], [place] [address] May, [facility] [address] [id number] [address] [place] [address], [place] [address] Apr, [facility] [address] [id number] [address] [place] [address], [place] [address] Mar, [facility] [address] [id number] [address] [place] [address], [place] [address] Jan, [facility] [address] [id number] [address] [place] [address], [place] [address] December, [facility] [address] [id number] [address] [place] [address], [place] [address] December, [facility] [address] [id number] [address] [place] [address], [place] [address] Oct, [facility] [address] [id number] [address] [place] [address], [place] [address] Oct, [facility] [address] [id number] [address] [place] [address], [place] [address] Sep, [facility] [address] [id number] [address] [place] [address], [place] [address] Aug, [facility] [address] [id number] [address] [place] [address], [place] [address] Aug, [facility] [address] [id number] [address] [place] [address], [place] [address] Jul, [facility] [address] [id number] [address] [place] [address], [place] [address] Jul, [facility] [address] [id number] [address] [place] [address], [place] [address] Mar, [facility] [address] [id number] [address] [place] [address], [place] [address] Mar, [facility] [address] [id number] [address] [place] [address], [place] [address] Feb, [facility] [address] [id number] [address] [place] [address], [place] [address] Feb, [facility] [address] [id number] [address] [place] [address], [place] [address] Feb, [facility] [address] [id number] [address] [place] [address], [place] [address] Jan, [facility] [address] [id number] [address] [place] [address], [place] [address] Nov, [facility] [address] [id number] [address] [place] [address], [place] [address] Sep, [facility] [address] [id number] [address] [place] [address], [place] [address] Sep, [facility] [address] [id number] [address] [place] [address], [place] [address] Sep, [facility] [address] [id number] [address] [place] [address], [place] [address] Aug, [facility] [address] [id number] [address] [place] [address], [place] [address] Aug, [facility] [address] [id number] [address] [place] [phone] Aug, [facility] [place] [address] [id number] [address] [place] [phone] Jun, [facility] [place] [address] [id number] [address] [place] [phone] Jun, [facility] [place] [address] [id number] [address] [place] [phone] Jun, [facility] [place] [address] [id number] [address] [place] [phone] Jun, [facility] [place] [address] [id number] [address] [place] [phone] May, [facility] [place] [address] [id number] [address] [place] [phone] May, [facility] [place] [address] [id number] [address] [place] [phone] May, [facility] [place] [address] [id number] [address] [place] [phone] May, [facility] [place] [address] [id number] [address] [place] [id number] Jun, [facility] [place] [address] [id number] [address] [place] [phone] December, [facility] [place] [address] [id number] [address] [place] [phone] May, IMMUNIZATIONS No Known Immunizations SOCIAL HISTORY Never Assessed REASON FOR VISIT requesting refill PLAN OF CARE VITAL SIGNS MEDICATIONS Medication Instructions Dosage Frequency Start Date End Date Duration S tatus Propranolol HCl 60 mg Orally Twice a day 1 tablet 12h 30 days Active RESULTS No Results PROCEDURES No Known [...]
--- OUTSIDE RECORDS SUMMARY | 2020-03-17 19:20 | XMS REPORT ---
Author Author Ann CHASE Organization [facility] Address [address] [place] [address] Care Team Providers Care Derrick Worker Name Role Phone GUADALUPE CHASENETTE Unavailable PROBLEMS Type Condition ICD9-CM Code THY71-HF Code Onset Dates Condition S tatus SNOMED Code Problem Screening for malignant neoplasm of the cervix V76.2 Active 238579967 Problem Screening examination for venereal disease V74.5 Active 561584314 Problem Procreative counseling and advice using natural family planning V26.41 Active 559075936 Problem Family history of diabetes mellitus V18.0 Active 104722614 Problem Influenza with other respiratory manifestations 487.1 Active 2511016 Problem Family history of other cardiovascular diseases V17.49 Active 870705462 Problem Migraine, unspecified withou t mention of intractable migraine without mention of status migrainosus 346.90 Active 60906223 Problem Need for prophylactic vaccination and inoculation, Influen za V04.81 Active 866014192 Problem Unspecified episodic mood disorder 296.90 Active 152327419 Problem HTN (hypertension) 401.9 Active 3 6435102 Problem Unspecified iron deficiency anemia 280.9 Active 70989461 Problem Irregular menses N92.6 Active 801 40220 Problem Chronic migraine G43.709 Active 377 71952 Problem Nausea alone 787.02 Active 5911075 07 Problem Other abnormal blood chemistry 790.[address] of occurrence, home E849.0 Acti ve 03400668 Problem Chronic tension-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, 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 Active 913094044 Problem Migraine without aura and without status migrain osus, not intractable G43.009 Active 465637212 Problem Iron deficiency anemia, unspecified iron deficiency an emia type D50.9 Active 59466631 Problem Seasonal allergic rhinitis, unspecified allergic rhinitis trigger J30.2 Active 829401326 Problem Cellulitis and abscess of unspecified site 682.9 Active 217009217 Problem Lateral epicondylitis of elbow 726.32 Active 481122559 Problem Insomnia, unspecified 780.52 Active 167627382 Problem Unspecified sleep disturbance 780.50 Active 73330366 Problem Irregular menstrual cycle 626.4 Acti ve 59693681 Problem Unspecified constipation 564.00 Activ e 50004527 Problem Unspecified disorders of bursae and tendons in shoulde r region 726.10 Active 15445719 Problem Unspecified spontaneous without mention of complication 634.90 Active 41699961 ALLERGIES Substance Reaction Event Type Date Status Hydrocodone-Acetaminophen nausea and vomiting Drug Allergy Aug, Active SOCIAL HISTORY No smoking Hx information available PLAN OF CARE Activity Details Follow Up 2 Weeks, prn Reason: VITAL SIGNS Height 64 in 2016-08-26 Weight 148.0 lbs 2016-08-26 Temperature 97.5 degrees Fahrenheit 2016-08-26 Heart Rate 60 bpm 2016-08-26 Respiratory Rate 18 2016-08-26 BMI 25.40 kg/m2 2016-08-26 Blood pressure systolic 142 mmHg 2016-08-26 Blood pressure diastolic 100 mmHg 2016-08-26 MEDICATIONS Medication Instructions Dosage Frequency Start Date End Date Duration S tatus Xanax 1 MG Orally Twice a day 1 tablet 12h December, Active Propranolol HCl 60 MG Orally Twice a day 1 tablet 12h 30 Active Xyzal 5 MG take 1 tablet by Oral route 1 time per day 30 Active Proventil HFA 108 (90 Base) MCG/ACT INHA LE TWO PUFFS BY MOUTH EVERY 6 HOURS NEEDED FOR SHORTNESS OF BREATH/COUGH 25 Active Baclofen 20 MG TAKE ONE TABLET BY MOUTH THREE TIMES DAILY NEE DED 30 Active Yjcnpzbfsu-PKIX-Otwijhhp 50-325-40 MG Orally every 4 hrs 1 tablet a s needed 4h Aug, Active Neurontin 100 MG Orally Three times a day 1 capsule 8h 30 Active SudoGest 60 mg Orally every 6 hrs TAKE ONE TABLET BY MOUTH EVERY 6 MARNI RS 6h 90 days Active Flonase 50 mcg/actuation take 1 sprays b y Nasal route 1 time per day in each nostril Sep, Active RESULTS Name Result Date Reference Range TEST, URINE (IN HOUSE) 2016-08-26 RESULTS negative Lot # [id number] Control + Exp date 11/2017 PROCEDURES Procedure Date Ordered Related Diagnosis Body Site URINE TEST Aug 26, 2016 Office Visit, Est Pt., Level 3 Aug 26, 2016 THER/PROPH/DIAG INJ, SC/IM Aug 26, 2016 DEXAMETHASONE 4MG/ML (PER 1 MG) Aug 26, 2016 DEPO MEDROL 40 MG/ML Aug 26, 2016 IMMUNIZATIONS Vaccine Route Administration Date Status DEXAMETHASONE 4MG/ML (PER 1 MG) IM Intramuscular Aug 26, 2016 Administered DEPO MEDROL 40 MG/ML IM Intramuscular Aug 26, 2016 Administer ed
--- OUTSIDE RECORDS SUMMARY | 2020-03-17 19:20 | XMS REPORT ---
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 Name Role Phone RACHEL VICTOR M Unavailable PROBLEMS Type Condition ICD9-CM Code NES53-SR Code Onset Dates Condition S tatus SNOMED Code Problem Perimenopausal N95.1 Active 22829 [id number] Problem Seasonal allergic rhinitis, unspecified allergic rhinitis trigger J30.2 Active 908698042 Problem HTN (hypertension) 401.9 Active 3 4197817 Problem Vitamin D deficiency E55.9 Active 48719516 Problem Anxiety F41.9 Active 00033625 Problem Nocturnal dyspnea R06.00 Active 24 4166204 Problem Iron deficiency anemia, unspecified iron deficiency an emia type D50.9 Active 78177617 Problem Chronic migraine G43.709 Active 377 01821 Problem Daytime hypersomnia G47.19 Active [id number] Problem Carpal tunnel syndrome, bilateral G56.03 Active [id number] ALLERGIES No Information ENCOUNTERS Encounter Location Date Diagnosis [place] [address] [place] [id number] [address] [place] [address] Feb, Exposure to pertussis Z20.81 8 [place] [address] [place] [id number] [address] [place] [address] Jan, [place] [address] [facility] [id number] [address] [place] [address] Jan, Chronic migraine G43.709 and Anxiety F41.9 [place] [address] [place] [id number] [address] [place] [address] December, Anxiety F41.9 [place] [address] [facility] [id number] [address] [place] [address] Nov, Chronic migraine G43.709 ; S easonal allergic rhinitis, unspecified allergic rhinitis trigger J30.2 ; Vitamin D deficiency E55.9 ; Nocturnal dyspnea R06.00 ; Daytime hypersomnia G47.19 and Anxiety F41.9 [facility] [address] [facility] [id number] [address] [place] [address] Nov, Chronic migraine G43.709 [place] [address] [facility] [id number] [address] [place] [address] Oct, [place] [address] [facility] [id number] [place] [address] Sep, Carpal tunnel syndrome, bila teral G56.03 [place] [address] [facility] [id number] [place] [address] Sep, Chronic migraine G43.709 [place] [address] [address] Aug, [place] [address] [place] [id number] [place] [address] Jul, Seasonal allergic rhinitis, unspecified allergic rhinitis trigger J30.2 [place] [address] [address] Jul, Seasonal allergic rhinitis, unspecified allergic rhinitis trigger J30.2 [place] [id number] [place] [address] Jul, Chronic migraine G43.709 [facility] [address] [place] [id number] [address] [place] [address] Jun, [facility] [address] [id number] [address] [place] [id number] May, Dental caries K02.9 [facility] [address] [facility] [id number] [address] [place] [address] May, Chronic migraine G43.709 [place] [address] [place] [id number] [address] [place] [address] Apr, Chronic migraine G43.709 ; I yvette deficiency anemia, unspecified iron deficiency anemia type D50.9 ; Perimenopausal N95.1 and Vitamin D deficiency E55.9 [place] [address] [facility] [id number] [address] [place] [address] Mar, [place] [address] [place] [id number] [place] [address] Mar, Seasonal allergic rhinitis, unspecified allergic rhinitis trigger J30.2 [place] [address] [place] [id number] [place] [address] Mar, Chronic migraine G43.709 [place] [address] [address] Mar, [place] [address] [place] [id number] [place] [address] Mar, Chronic migraine G43.709 ; I rregular menses N92.6 ; Iron deficiency anemia, unspecified iron deficiency anemia type D50.9 and General medical exam Z00.00 [place] [address] [place] [id number] [address] [place] [address] Mar, Chronic migraine G43.709 ; I yvette deficiency anemia, unspecified iron deficiency anemia type D50.9 ; Irregular menses N92.6 and General medical exam Z00.00 [facility] [address] [place] [id number] [address] [place] [address] [id number] Feb, Dental examination Z01.20 [place] [address] [place] [id number] [address] [place] [address] 18 Feb, 2017 Chronic tension-type headach e, 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 and Seasonal allergic rhinitis, unspecified allergic rhinitis trigger J30.2 [facility] [address] [facility] [id number] [address] [place] [address] Feb, [place] [address] [place] [id number] [address] [place] [address] Jan, Seasonal allergic rhinitis, unspecified allergic rhinitis trigger J30.2 [facility] [address] [facility] [id number] [address] [place] [address] December, Chronic tension-type headach e, 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 [facility] [address] [id number] [address] [place] [address] [id number] December, Dental examination Z01.20 [facility] [address] [facility] [id number] [address] [place] [address] December, [facility] [address] [facility] [id number] [address] [place] [address] Oct, [facility] [address] [facility] [id number] [place] [address] Oct, [facility] [address] [facility] [id number] [address] [place] [address] Oct, Sore throat J02.9 and Season al allergic rhinitis, unspecified allergic rhinitis trigger J30.2 [facility] [address] [facility] [id number] [address] [place] [address] Oct, [facility] [address] [address] Sep, [facility] [address] [facility] [id number] [address] [place] [address] Aug, Menstrual periods irregular N92.6 ; Chronic tension-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, 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 ; Acute upper respiratory infection, unspecified J06.9 and Other viral agents as the cause of diseases classified elsewhere B97.89 [facility] [address] [facility] [id number] [address] [place] [address] Jul, [facility] [address] [place] [id number] [address] [place] [address] Jul, [facility] [address] [place] [id number] [address] [place] [address] Jul, Migraine without aura and wi thout status migrainosus, not intractable G43.009 [facility] [address] [id number] [address] [place] [address] Jun, [facility] [address] [id number] [address] [place] [address] May, Migraine without aura and wi thout status migrainosus, not intractable G43.009 [facility] [address] [id number] [address] [place] [address] May, [facility] [address] [id number] [address] [place] [address] May, [facility] [address] [id number] [address] [place] [address] [id number] Mar, Dental examination Z01.20 [facility] [address] [id number] [address] [place] [address] Mar, [facility] [address] [id number] [address] [place] [address] Jan, Onychomycosis B35.1 [facility] [address] [id number] [address] [place] [address] Jan, [facility] [address] [id number] [address] [place] [address] December, Dental caries K02.9 [facility] [address] [id number] [address] [place] [address] Nov, Dental examination Z01.20 [facility] [address] [id number] [address] [place] [address] Oct, Dental examination Z01.20 [facility] [address] [id number] [address] [place] [address] Oct, [facility] [address] [id number] [address] [place] [address] Oct, Migraine G43.909 [facility] [address] [id number] [address] [place] [address] Sep, Onychomycosis B35.1 [facility] [address] [place] [id number] [address] [place] [address] Sep, [facility] [address] [facility] [id number] [address] [place] [address] Aug, [facility] [address] [place] [id number] [address] [place] [address] Jul, [facility] [address] [place] [id number] [address] [place] [address] Apr, [facility] [address] [place] [id number] [address] [place] [address] Apr, Right anterior knee pain 719 .46 [place] [address] [place] [id number] [address] [place] [address] Mar, Tendonitis 726.90 ; HTN (hyp ertension) 401.9 ; Tremors of nervous system 781.0 and Anxiety 300.00 [place] [id number] [place] [address] Mar, Thrush 112.0 [place] [address] [address] Feb, [place] [address] [address] Feb, Tremors of nervous system 78 1.0 and Carpal tunnel syndrome 354.0 [place] [address] [place] [id number] [place] [address] Jan, Anxiety 300.00 ; Tremors of nervous system 781.0 and Tendonitis 726.90 [place] [address] [place] [id number] [address] [place] [address] Jan, Anxiety 300.00 ; Tremors of nervous system 781.0 and Tendonitis 726.90 [place] [address] [address] Jan, Sinusitis 473.9 [facility] [address] [id number] [address] [place] [address], [place] [address] December, [facility] [address] [id number] [address] [place] [address], [place] [address] December, [facility] [address] [id number] [address] [place] [address], [place] [address] December, [facility] [address] [id number] [address] [place] [address], [place] [address] December, [facility] [address] [id number] [address] [place] [address], [place] [address] December, [facility] [address] [id number] [address] [place] [address], [place] [address] Nov, [facility] [address] [id number] [address] [place] [address], [place] [address] Nov, [facility] [address] [id number] [address] [place] [address], [place] [address] Sep, [facility] [address] [id number] [address] [place] [address], [place] [address] Sep, [facility] [address] [id number] [address] [place] [address], [place] [address] Sep, [facility] [address] [id number] [address] [place] [address], [place] [address] Sep, [facility] [address] [id number] [address] [place] [address] Jul, [facility] [address] [id number] [address] [place] [address], [place] [address] Jul, [facility] [address] [id number] [address] [place] [address], [place] [address] Jul, [facility] [address] [id number] [address] [place] [address], [place] [address] Jul, [facility] [address] [id number] [address] [place] [address], [place] [address] Jul, [facility] [address] [id number] [address] [place] [address], [place] [address] Jul, [facility] [address] [id number] [address] [place] [address], [place] [address] Jul, [facility] [address] [id number] [address] [place] [address], [place] [address] Jul, [facility] [address] [id number] [address] [place] [address], [place] [address] Jul, [facility] [address] [id number] [address] [place] [address], [place] [address] Jul, [facility] [address] [id number] [address] [place] [address], [place] [address] Jun, [facility] [address] [id number] [address] [place] [address], [place] [address] Jun, [facility] [address] [id number] [address] [place] [address], [place] [address] Jun, [facility] [address] [id number] [address] [place] [address], [place] [address] Jun, [facility] [address] [id number] [address] [place] [address], [place] [address] May, [facility] [address] [id number] [address] [place] [address], [place] [address] May, [facility] [address] [id number] [address] [place] [address], [place] [address] May, [facility] [address] [id number] [address] [place] [address], [place] [address] May, [facility] [address] [id number] [address] [place] [address], [place] [address] Apr, [facility] [address] [id number] [address] [place] [address], [place] [address] 17 Apr, 2014 [facility] [address] [id number] [address] [place] [address], [place] [address] 17 Apr, 2013 [facility] [address] [id number] [address] [place] [address], [place] [address] 17 Apr, 2013 [facility] [address] [id number] [address] [place] [address], [place] [address] 16 Apr, 2013 [facility] [address] [id number] [address] [place] [address], [place] [address] 16 Apr, 2013 [facility] [address] [id number] [address] [place] [address], [place] [address] Apr, 2013 [facility] [address] [id number] [address] [place] [address], [place] [address] Apr, [facility] [address] [id number] [address] [place] [address], [place] [address] Mar, [facility] [address] [id number] [address] [place] [address], [place] [address] Mar, [facility] [address] [id number] [address] [place] [address], [place] [address] Feb, [facility] [address] [id number] [address] [place] [address], [place] [address] Feb, [facility] [address] [id number] [address] [place] [address], [place] [address] Feb, [facility] [address] [id number] [address] [place] [address], [place] [address] Feb, [facility] [address] [id number] [address] [place] [address], [place] [address] Jan, [facility] [address] [id number] [address] [place] [address], [place] [address] Jan, [facility] [address] [id number] [address] [place] [address], [place] [address] Jan, [facility] [address] [id number] [address] [place] [address], [place] [address] Jan, [facility] [address] [id number] [facility] [place] [address] Jan, [facility] [address] [id number] [address] [place] [address], [place] [address] Jan, [facility] [address] [id number] [address] [place] [address], [place] [address] December, [facility] [address] [id number] [address] [place] [address], [place] [address] December, [facility] [address] [id number] [address] [place] [address], [place] [address] December, [facility] [address] [id number] [address] [place] [address], [place] [address] December, [facility] [address] [id number] [address] [place] [address], [place] [address] December, [facility] [address] [id number] [address] [place] [address], [place] [address] Nov, [facility] [address] [id number] [address] [place] [address], [place] [address] Nov, [facility] [address] [id number] [address] [place] [address], [place] [address] Nov, [facility] [address] [id number] [address] [place] [address], [place] [address] Nov, [facility] [address] [id number] [address] [place] [address], [place] [address] Nov, [facility] [address] [id number] [address] [place] [address], [place] [address] Nov, [facility] [address] [id number] [address] [place] [address], [place] [address] Oct, [facility] [address] [id number] [address] [place] [address], [place] [address] Oct, [facility] [address] [id number] [facility] [place] [address] 07 Oct, 2013 [facility] [address] [id number] [address] [place] [address], [place] [address] Oct, [facility] [address] [id number] [facility] [place] [address] 14 Sep, 2013 [facility] [address] [id number] [address] [place] [address], [place] [address] 14 Sep, 2013 [facility] [address] [id number] [address] [place] [address], [place] [address] 10 Sep, 2013 [facility] [address] [id number] [address] [place] [address], [place] [address] 10 Sep, 2013 [facility] [address] [id number] [address] [place] [address], [place] [address] 07 Sep, 2013 [facility] [address] [id number] [address] [place] [address], [place] [address] Sep, 2013 [facility] [address] [id number] [address] [place] [address], [place] [address] Sep, 2013 [facility] [address] [id number] [address] [place] [address], [place] [address] 05 Sep, 2013 [facility] [address] [id number] [address] [place] [address], [place] [address] Sep, 2013 [facility] [address] [id number] [address] [place] [address], [place] [address] Sep, 2013 [facility] [address] [id number] [address] [place] [address], [place] [address] Sep, 2013 [facility] [address] [id number] [address] [place] [address], [place] [address] Sep, 2013 [facility] [address] [id number] [address] [place] [address], [place] [address] Sep, 2013 [facility] [address] [id number] [address] [place] [address], [place] [address] 14 Aug, 2013 [facility] [address] [id number] [address] [place] [address], [place] [address] Aug, [facility] [address] [id number] [address] [place] [address], [place] [address] Jul, [facility] [address] [id number] [address] [place] [address], [place] [address] Jul, [facility] [address] [id number] [address] [place] [address], [place] [address] Jun, [facility] [address] [id number] [address] [place] [address], [place] [address] Jun, [facility] [address] [id number] [address] [place] [address], [place] [address] May, [facility] [address] [id number] [address] [place] [address], [place] [address] Apr, [facility] [address] [id number] [address] [place] [address], [place] [address] Mar, [facility] [address] [id number] [address] [place] [address], [place] [address] Jan, [facility] [address] [id number] [address] [place] [address], [place] [address] December, [facility] [address] [id number] [address] [place] [address], [place] [address] December, [facility] [address] [id number] [address] [place] [address], [place] [address] Oct, [facility] [address] [id number] [address] [place] [address], [place] [address] Oct, [facility] [address] [id number] [address] [place] [address], [place] [address] Sep, [facility] [address] [id number] [address] [place] [address], [place] [address] Aug, [facility] [address] [id number] [address] [place] [address], [place] [address] Aug, [facility] [address] [id number] [address] [place] [address], [place] [address] Jul, [facility] [address] [id number] [address] [place] [address], [place] [address] Jul, [facility] [address] [id number] [address] [place] [address], [place] [address] Mar, [facility] [address] [id number] [address] [place] [address], [place] [address] Mar, [facility] [address] [id number] [address] [place] [address], [place] [address] Feb, [facility] [address] [id number] [address] [place] [address], [place] [address] Feb, [facility] [address] [id number] [address] [place] [address], [place] [address] Feb, [facility] [address] [id number] [address] [place] [address], [place] [address] Jan, [facility] [address] [id number] [address] [place] [address], [place] [address] Nov, [facility] [address] [id number] [address] [place] [address], [place] [address] Sep, [facility] [address] [id number] [address] [place] [address], [place] [address] Sep, [facility] [address] [id number] [address] [place] [address], [place] [address] Sep, [facility] [address] [id number] [address] [place] [address], [place] [address] Aug, [facility] [address] [id number] [address] [place] [address], [place] [address] Aug, [facility] [address] [id number] [address] [place] [id number] Aug, [facility] [address] [id number] [address] [place] [address] Jun, [facility] [address] [id number] [address] [place] [id number] Jun, [facility] [address] [id number] [address] [place] [phone] Jun, [facility] [address] [id number] [address] [place] [phone] Jun, [facility] [address] [id number] [address] [place] [phone] May, [facility] [address] [id number] [address] [place] [phone] May, [facility] [address] [id number] [address] [place] [phone] May, [facility] [address] [id number] [address] [place] [phone] May, [facility] [address] [id number] [address] [place] [phone] Jun, [facility] [address] [id number] [address] [place] [phone] December, [facility] [address] [id number] [address] [place] [phone] May, IMMUNIZATIONS No Known Immunizations SOCIAL HISTORY Never Assessed REASON FOR VISIT Refill request PLAN OF CARE VITAL SIGNS MEDICATIONS Medication Instructions Dosage Frequency Start Date End Date Duration S tatus Xanax 1 MG Orally Twice a day 1 tablet 12h December, 28 d ays Active [id number]-NRMX-[id number] 50-325-40 MG Orally every 4 hrs prn 1 t ablet as needed 10 Active RESULTS No Results PROCEDURES No Known [...]
--- OUTSIDE RECORDS SUMMARY | 2020-03-17 19:20 | XMS REPORT ---
Author Author Ann RAMOS Organization [facility] Address [address] [place] [address] Care Team Providers Care Streetcar Dispatcher Name Role Phone RACHEL VICTOR M Unavailable PROBLEMS Type Condition ICD9-CM Code ZQP94-CS Code Onset Dates Condition S tatus SNOMED Code Problem Perimenopausal N95.1 Active 39827 [id number] Problem Seasonal allergic rhinitis, unspecified allergic rhinitis trigger J30.2 Active 041624981 Problem HTN (hypertension) 401.9 Active 3 5226426 Problem Vitamin D deficiency E55.9 Active 73456773 Problem Anxiety F41.9 Active 04209210 Problem Nocturnal dyspnea R06.00 Active 24 2197132 Problem Iron deficiency anemia, unspecified iron deficiency an emia type D50.9 Active 76687434 Problem Chronic migraine G43.709 Active 377 33256 Problem Daytime hypersomnia G47.19 Active [id number] Problem Carpal tunnel syndrome, bilateral G56.03 Active [id number] ALLERGIES Substance Reaction Event Type Date Status Hydrocodone-Acetaminophen nausea and vomiting Drug Allergy Nov, Active ENCOUNTERS Encounter Location Date Diagnosis [place] [facility] [id number] [place] [address] Feb, [place] [facility] [id number] [place] [address] Feb, Anxiety F41.9 [place] [facility] [id number] [place] [address] Feb, Exposure to pertussis Z20.81 8 [place] [facility] [id number] [place] [address] Jan, [place] [facility] [id number] [place] [address] Jan, Chronic migraine G43.[address] [facility] [address] [facility] [id number] [place] [address] December, Anxiety F41.9 [facility] [address] [facility] [id number] [place] [address] Nov, Chronic migraine G43.709 ; S easonal allergic rhinitis, unspecified allergic rhinitis trigger J30.2 ; Vitamin D deficiency E55.9 ; Nocturnal dyspnea R06.00 ; Daytime hypersomnia G47.[address] [facility] [address] [facility] [id number] [place] [address] Nov, Chronic migraine G43.709 [facility] [address] [facility] [id number] [place] [address] Oct, [facility] [address] [facility] [id number] [place] [address] Sep, Carpal tunnel syndrome, bila teral G56.03 [facility] [address] [facility] [id number] [place] [address] Sep, Chronic migraine G43.709 [facility] [address] [facility] [id number] [place] [address] Aug, [facility] [address] [facility] [id number] [place] [address] Jul, Seasonal allergic rhinitis, unspecified allergic rhinitis trigger J30.2 [facility] [address] [facility] [id number] [place] [address] Jul, Seasonal allergic rhinitis, unspecified allergic rhinitis trigger J30.2 [facility] [address] [facility] [id number] [place] [address] Jul, Chronic migraine G43.709 [facility] [address] [facility] [id number] [place] [address] Jun, [facility] [address] [facility] [id number] [address] [place] [id number] May, Dental caries K02.9 [facility] [address] [facility] [id number] [place] [address] May, Chronic migraine G43.709 [place] [facility] [place] [id number] [address] [place] [address] Apr, Chronic migraine G43.709 ; I yvette deficiency anemia, unspecified iron deficiency anemia type D50.9 ; Perimenopausal N95.1 and Vitamin D deficiency E55.9 [place] [facility] [id number] [place] [address] Mar, [place] [address] [address] Mar, Seasonal allergic rhinitis, unspecified allergic rhinitis trigger J30.2 [place] [address] [place] [id number] [address] [place] [address] Mar, Chronic migraine G43.709 [place] [address] [place] [id number] [address] [place] [address] Mar, [place] [address] [place] [id number] [address] [place] [address] Mar, Chronic migraine G43.709 ; I rregular menses N92.6 ; Iron deficiency anemia, unspecified iron deficiency anemia type D50.9 and General medical exam Z00.00 [place] [address] [place] [id number] [address] [place] [address] Mar, Chronic migraine G43.709 ; I yvette deficiency anemia, unspecified iron deficiency anemia type D50.9 ; Irregular menses N92.6 and General medical exam Z00.00 [facility] [address] [id number] [address] [place] [id number] 20 Feb, [address] [facility] [address] [place] [id number] [address] [place] [address] 18 Feb, 2017 Chronic tension-type headach e, 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 and Seasonal allergic rhinitis, unspecified allergic rhinitis trigger J30.2 [facility] [address] [place] [id number] [address] [place] [address] Feb, [facility] [address] [address] Jan, Seasonal allergic rhinitis, unspecified allergic rhinitis trigger J30.2 [facility] [address] [address] December, Chronic tension-type headach e, 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 [facility] [id number] [place] [id number] December, Dental examination Z01.20 [facility] [address] [address] December, [place] [address] [address] Oct, [facility] [address] [address] Oct, [facility] [address] [address] Oct, Sore throat J02.9 and Season al allergic rhinitis, unspecified allergic rhinitis trigger J30.2 [place] [address] [address] Oct, [facility] [address] [address] Sep, [facility] [address] [address] Aug, Menstrual periods irregular N92.6 ; Chronic tension-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, 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 ; Acute upper respiratory infection, unspecified J06.9 and Other viral agents as the cause of diseases classified elsewhere B97.89 [place] [address] [address] Jul, [facility] [address] [id number] [address] [place] [address] Jul, [facility] [address] [id number] [address] [place] [address] Jul, Migraine without aura and wi thout status migrainosus, not intractable [address]43.009 [facility] [address] [id number] [address] [place] [address] Jun, [facility] [address] [id number] [address] [place] [address] May, Migraine without aura and wi thout status migrainosus, not intractable G43.009 [facility] [address] [id number] [address] [place] [address] May, [facility] [address] [id number] [address] [place] [address] May, [facility] [address] [id number] [address] [place] [id number] Mar, Dental examination Z01.20 [facility] [address] [id number] [address] [place] [address] Mar, [facility] [address] [id number] [address] [place] [address] Jan, Onychomycosis B35.1 [facility] [address] [id number] [address] [place] [address] Jan, [facility] [address] [id number] [address] [place] [address] December, Dental caries K02.9 [facility] [address] [id number] [address] [place] [address] Nov, Dental examination Z01.20 [facility] [address] [id number] [address] [place] [address] Oct, Dental examination Z01.20 [facility] [address] [place] [id number] [address] [place] [address] Oct, [facility] [address] [facility] [id number] [place] [address] Oct, Migraine G43.909 [facility] [address] [place] [id number] [address] [place] [address] Sep, Onychomycosis B35.1 [facility] [address] [place] [id number] [address] [place] [address] Sep, [facility] [address] [place] [id number] [address] [place] [address] Aug, [facility] [address] [place] [id number] [place] [address] Jul, [facility] [address] [place] [id number] [address] [place] [address] Apr, [facility] [address] [place] [id number] [place] [address] Apr, Right anterior knee pain 719 .46 [facility] [address] [place] [id number] [place] [address] Mar, Tendonitis 726.90 ; HTN (hyp ertension) 401.9 ; Tremors of nervous system 781.[address] [facility] [address] [place] [id number] [address] [place] [address] Mar, Thrush 112.0 [facility] [address] [place] [id number] [address] [place] [address] Feb, [facility] [address] [address] Feb, Tremors of nervous system 78 1.0 and Carpal tunnel syndrome 354.0 [facility] [address] [place] [id number] [address] [place] [address] Jan, Anxiety 300.00 ; Tremors of nervous system 781.[address] [facility] [address] [id number] [address] [place] [address] Jan, Anxiety 300.00 ; Tremors of nervous system 781.0 and Tendonitis 726.90 [facility] [address] [id number] [address] [place] [address] Jan, Sinusitis 473.9 [facility] [address] [id number] [address] [place] [address] December, [facility] [address] [id number] [address] [place] [address] December, [facility] [address] [id number] [address] [place] [address] December, [facility] [address] [id number] [address] [place] [address] December, [facility] [address] [id number] [address] [place] [address] December, [facility] [address] [id number] [address] [place] [address] Nov, [facility] [address] [id number] [address] [place] [address] Nov, [facility] [address] [id number] [address] [place] [address] Sep, [facility] [address] [id number] [address] [place] [address] Sep, [facility] [address] [id number] [address] [place] [address] Sep, [facility] [address] [id number] [address] [place] [address] Sep, [facility] [address] [id number] [address] [place] [address] Jul, [facility] [address] [id number] [address] [place] [address] Jul, [facility] [address] [id number] [address] [place] [address], [place] [address] Jul, [facility] [address] [id number] [address] [place] [address], [place] [address] Jul, [facility] [address] [id number] [address] [place] [address], [place] [address] Jul, [facility] [address] [id number] [address] [place] [address], [place] [address] Jul, [facility] [address] [id number] [address] [place] [address], [place] [address] Jul, [facility] [address] [id number] [address] [place] [address], [place] [address] Jul, [facility] [address] [id number] [address] [place] [address], [place] [address] Jul, [facility] [address] [id number] [address] [place] [address], [place] [address] Jul, [facility] [address] [id number] [address] [place] [address], [place] [address] Jun, [facility] [address] [id number] [address] [place] [address], [place] [address] Jun, [facility] [address] [id number] [address] [place] [address], [place] [address] Jun, [facility] [address] [id number] [address] [place] [address], [place] [address] Jun, [facility] [address] [id number] [address] [place] [address], [place] [address] May, [facility] [address] [id number] [address] [place] [address], [place] [address] May, [facility] [address] [id number] [address] [place] [address], [place] [address] 14 May, 2014 [facility] [address] [id number] [address] [place] [address], [place] [address] 14 May, 2014 [facility] [address] [id number] [address] [place] [address], [place] [address] 17 Apr, 2013 [facility] [address] [id number] [address] [place] [address], [place] [address] 17 Apr, 2013 [facility] [address] [id number] [address] [place] [address], [place] [address] 17 Apr, 2013 [facility] [address] [id number] [address] [place] [address], [place] [address] 17 Apr, 2013 [facility] [address] [id number] [address] [place] [address], [place] [address] 16 Apr, 2013 [facility] [address] [id number] [address] [place] [address], [place] [address] 16 Apr, 2013 [facility] [address] [id number] [address] [place] [address], [place] [address] 03 Apr, 2013 [facility] [address] [id number] [address] [place] [address], [place] [address] 03 Apr, 2014 [facility] [address] [id number] [address] [place] [address], [place] [address] Mar, [facility] [address] [id number] [address] [place] [address], [place] [address] Mar, [facility] [address] [id number] [address] [place] [address], [place] [address] Feb, [facility] [address] [id number] [address] [place] [address], [place] [address] Feb, [facility] [address] [id number] [address] [place] [address], [place] [address] Feb, [facility] [address] [id number] [address] [place] [address], [place] [address] Feb, [facility] [address] [id number] [address] [place] [address], [place] [address] Jan, [facility] [address] [id number] [address] [place] [address], [place] [address] Jan, [facility] [address] [id number] [address] [place] [address], [place] [address] Jan, [facility] [address] [id number] [address] [place] [address], [place] [address] Jan, [facility] [address] [id number] [address] [place] [address], [place] [address] Jan, [facility] [address] [id number] [address] [place] [address], [place] [address] Jan, [facility] [address] [id number] [address] [place] [address], [place] [address] December, [facility] [address] [id number] [address] [place] [address], [place] [address] December, [facility] [address] [id number] [address] [place] [address], [place] [address] December, [facility] [address] [id number] [address] [place] [address], [place] [address] December, [facility] [address] [id number] [address] [place] [address], [place] [address] December, [facility] [address] [id number] [address] [place] [address], [place] [address] Nov, [facility] [address] [id number] [address] [place] [address], [place] [address] Nov, [facility] [address] [id number] [address] [place] [address], [place] [address] Nov, [facility] [address] [id number] [address] [place] [address], [place] [address] Nov, [facility] [address] [id number] [address] [place] [address], [place] [address] Nov, [facility] [address] [id number] [address] [place] [address], [place] [address] Nov, [facility] [address] [id number] [address] [place] [address], [place] [address] Oct, [facility] [address] [id number] [address] [place] [address], [place] [address] Oct, [facility] [address] [id number] [address] [place] [address], [place] [address] Oct, [facility] [address] [id number] [address] [place] [address], [place] [address] 07 Oct, 2013 [facility] [address] [id number] [address] [place] [address], [place] [address] 14 Sep, 2013 [facility] [address] [id number] [address] [place] [address], [place] [address] 14 Sep, 2013 [facility] [address] [id number] [address] [place] [address], [place] [address] 10 Sep, 2013 [facility] [address] [id number] [address] [place] [address], [place] [address] 10 Sep, 2013 [facility] [address] [id number] [address] [place] [address], [place] [address] 07 Sep, 2013 [facility] [address] [id number] [address] [place] [address], [place] [address] 06 Sep, 2013 [facility] [address] [id number] [address] [place] [address], [place] [address] Sep, 2013 [facility] [address] [id number] [address] [place] [address], [place] [address] 05 Sep, 2013 [facility] [address] [id number] [address] [place] [address], [place] [address] 05 Sep, 2013 [facility] [address] [id number] [address] [place] [address], [place] [address] 05 Sep, 2013 [facility] [address] [id number] [address] [place] [address], [place] [address] Sep, [facility] [address] [id number] [address] [place] [address], [place] [address] Sep, [facility] [address] [id number] [address] [place] [address], [place] [address] Sep, [facility] [address] [id number] [address] [place] [address], [place] [address] Aug, [facility] [address] [id number] [address] [place] [address], [place] [address] Aug, [facility] [address] [id number] [address] [place] [address], [place] [address] Jul, [facility] [address] [id number] [address] [place] [address], [place] [address] Jul, [facility] [address] [id number] [address] [place] [address], [place] [address] Jun, [facility] [address] [id number] [address] [place] [address], [place] [address] Jun, [facility] [address] [id number] [address] [place] [address], [place] [address] May, [facility] [address] [id number] [address] [place] [address], [place] [address] Apr, [facility] [address] [id number] [address] [place] [address], [place] [address] Mar, [facility] [address] [id number] [address] [place] [address], [place] [address] Jan, [facility] [address] [id number] [address] [place] [address], [place] [address] December, [facility] [address] [id number] [address] [place] [address], [place] [address] December, [facility] [address] [id number] [address] [place] [address], [place] [address] Oct, [facility] [address] [id number] [address] [place] [address], [place] [address] Oct, [facility] [address] [id number] [address] [place] [address], [place] [address] Sep, [facility] [address] [id number] [address] [place] [address], [place] [address] Aug, [facility] [address] [id number] [address] [place] [address], [place] [address] Aug, [facility] [address] [id number] [address] [place] [address], [place] [address] Jul, [facility] [address] [id number] [address] [place] [address], [place] [address] Jul, [facility] [address] [id number] [address] [place] [address], [place] [address] Mar, [facility] [address] [id number] [address] [place] [address], [place] [address] Mar, [facility] [address] [id number] [address] [place] [address], [place] [address] Feb, [facility] [address] [id number] [address] [place] [address], [place] [address] Feb, [facility] [address] [id number] [address] [place] [address], [place] [address] Feb, [facility] [address] [id number] [address] [place] [address], [place] [address] Jan, [facility] [address] [id number] [address] [place] [address], [place] [address] Nov, [facility] [address] [id number] [address] [place] [address], [place] [address] 17 Sep, 2011 [facility] [address] [id number] [address] [place] [address], [place] [address] 15 Sep, 2011 [facility] [address] [id number] [address] [place] [address], [place] [address] Sep, [facility] [address] [id number] [address] [place] [address] Aug, [facility] [address] [id number] [address] [place] [id number] Aug, [facility] [address] [id number] [address] [place] [id number] Aug, [facility] [address] [id number] [address] [place] [id number] Jun, [facility] [address] [id number] [address] [place] [phone] Jun, [facility] [address] [id number] [address] [place] [id number] Jun, [facility] [address] [id number] [address] [place] [phone] Jun, [facility] [address] [id number] [address] [place] [phone] May, [facility] [address] [id number] [address] [place] [id number] May, [facility] [address] [id number] [address] [place] [phone] May, [facility] [address] [id number] [address] [place] [phone] May, [facility] [address] [id number] [address] [place] [phone] Jun, [facility] [address] [id number] [address] [place] [phone] December, [facility] [address] [id number] [address] [place] [phone] May, IMMUNIZATIONS No Known Immunizations SOCIAL HISTORY Never Assessed REASON FOR VISIT HTN--mervin Johnson would like to discuss when she's asleep she will wakeup a nd feel like she cannot breathe very well PLAN OF CARE Activity Details Follow Up 6 Months, prn or pending sle ep study Reason:Anxiety VITAL SIGNS Height 64 in 2017-11-30 Weight 135.5 lbs 2017-11-30 Temperature 97.7 degrees Fahrenheit 2017-11-30 Heart Rate 96 bpm 2017-11-30 Respiratory Rate 20 2017-11-30 BMI 23.26 kg/m2 2017-11-30 Blood pressure systolic 120 mmHg 2017-11-30 Blood pressure diastolic 72 mmHg 2017-11-30 MEDICATIONS Medication Instructions Dosage Frequency Start Date End Date Duration S tatus Xanax 1 MG Orally Twice a day 1 tablet 12h December, 28 d ays Active [id number] 50-325-40 MG Orally every 4 hrs prn 1 t ablet as needed 10 Active Topiramate 50 mg Orally 2 times a day 1 tablet 12h 3 0 Active Propranolol HCl 60 mg Orally Twice a day 1 tablet 12h 30 days Active Baclofen 20 MG TAKE ONE TABLET BY MOUTH THREE TIMES DAILY NEE DED 30 Not-Taking Zyrtec Allergy 10 mg Act seamus SudoGest 60 mg Orally every 6 hrs 1 tablet as needed 6h Active Flonase 50 mcg/act Nasally 1spray(s) intranasally once a da y take 1 sprays by Nasal route 1 time per day in each nostril Sep, 30 days Active Promethazine HCl 25 MG Orally with severe migraine 1 tablet as needed Active Ferrous Sulfate 325 mg (65 mg iron) 1 Ta blet by Oral route 2 times per day give with food Apr, Active Proventil HFA 108 (90 Base) MCG/ACT INHA LE TWO PUFFS BY MOUTH EVERY 6 HOURS NEEDED FOR SHORTNESS OF BREATH/COUGH 25 Active Vitamin D3 1000 UNIT Orally Once a day 5 tablet 24h Nov, 8 December, 30 day(s) Active RESULTS No Results PROCEDURES No [...]
--- OUTSIDE RECORDS SUMMARY | 2020-03-17 19:20 | XMS REPORT ---
Author Author Ann RAMOS Organization [facility] Address [address] [place] [address] Care Team Providers Care Sailing Master Name Role Phone RACHEL VICTOR M Unavailable PROBLEMS Type Condition ICD9-CM Code GUI69-EQ Code Onset Dates Condition S tatus SNOMED Code Problem Perimenopausal N95.1 Active 41824 [id number] Problem Seasonal allergic rhinitis, unspecified allergic rhinitis trigger J30.2 Active 155893667 Problem HTN (hypertension) 401.9 Active 3 6468855 Problem Vitamin D deficiency E55.9 Active 58943936 Problem Anxiety F41.9 Active 11573915 Problem Nocturnal dyspnea R06.00 Active 24 7833896 Problem Iron deficiency anemia, unspecified iron deficiency an emia type D50.9 Active 99635867 Problem Chronic migraine G43.709 Active 377 33031 Problem Daytime hypersomnia G47.19 Active [id number] Problem Carpal tunnel syndrome, bilateral G56.03 Active [id number] ALLERGIES No Information ENCOUNTERS Encounter Location Date Diagnosis [place] [address] [place] [id number] [place] [address] December, Anxiety F41.9 [place] [address] [address] Nov, Chronic migraine G43.709 ; S easonal allergic rhinitis, unspecified allergic rhinitis trigger J30.2 ; Vitamin D deficiency E55.9 ; Nocturnal dyspnea R06.00 ; Daytime hypersomnia G47.19 and Anxiety F41.9 [place] [id number] [place] [id number] [address] [place] [address] Nov, Chronic migraine G43.709 [place] [address] [place] [id number] [place] [address] Oct, [facility] [address] [facility] [id number] [address] [place] [address] Sep, Carpal tunnel syndrome, bila teral G56.03 [facility] [address] [facility] [id number] [address] [place] [address] Sep, Chronic migraine G43.709 [facility] [address] [facility] [id number] [address] [place] [phone] Aug, [facility] [address] [facility] [id number] [place] [address] Jul, Seasonal allergic rhinitis, unspecified allergic rhinitis trigger J30.2 [place] [address] [place] [id number] [place] [address] Jul, Seasonal allergic rhinitis, unspecified allergic rhinitis trigger J30.2 [place] [address] [address] Jul, Chronic migraine G43.709 [facility] [address] [facility] [id number] [address] [place] [address] Jun, [facility] [id number] [place] [id number] May, Dental caries K02.9 [facility] [address] [place] [id number] [address] [place] [address] May, Chronic migraine G43.709 [facility] [address] [place] [id number] [place] [address] Apr, Chronic migraine G43.709 ; I yvette deficiency anemia, unspecified iron deficiency anemia type D50.9 ; Perimenopausal N95.1 and Vitamin D deficiency E55.9 [facility] [address] [facility] [id number] [address] [place] [phone] Mar, [facility] [address] [place] [id number] [address] [place] [phone] Mar, Seasonal allergic rhinitis, unspecified allergic rhinitis trigger J30.2 [facility] [address] [id number] [address] [place] [address] Mar, Chronic migraine G43.709 [facility] [address] [id number] [address] [place] [phone] Mar, [facility] [address] [facility] [id number] [address] [place] [address] Mar, Chronic migraine G43.709 ; I rregular menses N92.6 ; Iron deficiency anemia, unspecified iron deficiency anemia type D50.9 and General medical exam Z00.00 [facility] [address] [id number] [address] [place] [address] Mar, Chronic migraine G43.709 ; I yvette deficiency anemia, unspecified iron deficiency anemia type D50.9 ; Irregular menses N92.6 and General medical exam Z00.00 [facility] [address] [id number] [place] [address] [id number] Feb, Dental examination Z01.20 [facility] [address] [id number] [address] [place] [phone] Feb, Chronic tension-type headach e, 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 and Seasonal allergic rhinitis, unspecified allergic rhinitis trigger J30.2 [facility] [address] [id number] [address] [place] [phone] Feb, [facility] [address] [id number] [address] [place] [phone] Jan, Seasonal allergic rhinitis, unspecified allergic rhinitis trigger J30.2 [facility] [address] [id number] [address] [place] [address] December, Chronic tension-type headach e, 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 [facility] [address] [id number] [address] [place] [id number] December, Dental examination Z01.20 [facility] [address] [id number] [address] [place] [phone] December, [facility] [address] [facility] [id number] [address] [place] [phone] Oct, [facility] [address] [facility] [id number] [address] [place] [phone] Oct, [facility] [address] [facility] [id number] [address] [place] [address] Oct, Sore throat J02.9 and Season al allergic rhinitis, unspecified allergic rhinitis trigger J30.2 [facility] [address] [facility] [id number] [address] [place] [phone] Oct, [facility] [address] [facility] [id number] [address] [place] [phone] Sep, [facility] [address] [facility] [id number] [address] [place] [phone] Aug, Menstrual periods irregular N92.6 ; Chronic tension-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, 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 ; Acute upper respiratory infection, unspecified J06.9 and Other viral agents as the cause of diseases classified elsewhere B97.89 [facility] [address] [facility] [id number] [address] [place] [phone] Jul, [facility] [address] [facility] [id number] [address] [place] [phone] Jul, [facility] [address] [facility] [id number] [address] [place] [phone] Jul, Migraine without aura and wi thout status migrainosus, not intractable G43.009 [facility] [address] [facility] [id number] [address] [place] [phone] Jun, [facility] [address] [facility] [id number] [address] [place] [phone] May, Migraine without aura and wi thout status migrainosus, not intractable G43.009 [facility] [address] [facility] [id number] [address] [place] [phone] May, [facility] [address] [id number] [address] [place] [phone] May, [facility] [address] [id number] [address] [place] [address] [id number] Mar, Dental examination Z01.20 [facility] [address] [id number] [address] [place] [phone] Mar, [facility] [address] [id number] [address] [place] [phone] Jan, Onychomycosis B35.1 [facility] [address] [id number] [address] [place] [phone] Jan, [facility] [address] [id number] [address] [place] [phone] December, Dental caries K02.9 [facility] [address] [id number] [address] [place] [phone] Nov, Dental examination Z01.20 [facility] [address] [id number] [address] [place] [phone] Oct, Dental examination Z01.20 [facility] [address] [id number] [address] [place] [phone] Oct, [facility] [address] [id number] [address] [place] [phone] Oct, Migraine G43.909 [facility] [address] [id number] [address] [place] [phone] Sep, Onychomycosis B35.1 [facility] [address] [id number] [address] [place] [phone] Sep, [facility] [address] [id number] [address] [place] [phone] Aug, [facility] [address] [id number] [address] [place] [phone] Jul, [facility] [address] [facility] [id number] [address] [place] [phone] 16 Apr, 2015 [facility] [address] [facility] [id number] [address] [place] [phone] 10 Apr, 2015 Right anterior knee pain 719 .46 [facility] [address] [facility] [id number] [address] [place] [phone] 14 Mar, 2015 Tendonitis 726.90 ; HTN (hyp ertension) 401.9 ; Tremors of nervous system 781.0 and Anxiety 300.00 [facility] [address] [facility] [id number] [address] [place] [phone] Mar, Thrush 112.0 [facility] [address] [facility] [id number] [address] [place] [phone] Feb, [facility] [address] [place] [id number] [place] [phone] Feb, Tremors of nervous system 78 1.0 and Carpal tunnel syndrome 354.0 [facility] [address] [facility] [id number] [address] [place] [phone] Jan, Anxiety 300.00 ; Tremors of nervous system 781.0 and Tendonitis 726.90 [facility] [address] [facility] [id number] [address] [place] [phone] Jan, Anxiety 300.00 ; Tremors of nervous system 781.0 and Tendonitis 726.90 [facility] [address] [facility] [id number] [address] [place] [phone] Jan, Sinusitis 473.9 [facility] [address] [facility] [id number] [address] [place] [phone] December, [facility] [address] [place] [id number] [address] [place] [phone] December, [facility] [address] [place] [id number] [address] [place] [phone] December, [facility] [address] [place] [id number] [place] [phone] December, [facility] [address] [id number] [address] [place] [address], [place] [address] December, [facility] [address] [id number] [address] [place] [address], [place] [address] Nov, [facility] [address] [id number] [address] [place] [address], [place] [address] Nov, [facility] [address] [id number] [address] [place] [address], [place] [address] Sep, 2014 [facility] [address] [id number] [address] [place] [address], [place] [address] Sep, 2014 [facility] [address] [id number] [address] [place] [address], [place] [address] Sep, 2014 [facility] [address] [id number] [address] [place] [address], [place] [address] Sep, 2014 [facility] [address] [id number] [address] [place] [address], [place] [address] Jul, [facility] [address] [id number] [address] [place] [address], [place] [address] Jul, [facility] [address] [id number] [address] [place] [address], [place] [address] Jul, [facility] [address] [id number] [address] [place] [address], [place] [address] Jul, [facility] [address] [id number] [address] [place] [address], [place] [address] Jul, [facility] [address] [id number] [address] [place] [address], [place] [address] Jul, [facility] [address] [id number] [address] [place] [address], [place] [address] Jul, [facility] [address] [id number] [address] [place] [address], [place] [address] Jul, [facility] [address] [id number] [address] [place] [address], [place] [address] Jul, [facility] [address] [id number] [address] [place] [address], [place] [address] Jul, [facility] [address] [id number] [address] [place] [address], [place] [address] Jun, [facility] [address] [id number] [address] [place] [address], [place] [address] Jun, [facility] [address] [id number] [address] [place] [address], [place] [address] Jun, [facility] [address] [id number] [address] [place] [address], [place] [address] Jun, [facility] [address] [id number] [address] [place] [address], [place] [address] May, [facility] [address] [id number] [address] [place] [address], [place] [address] May, [facility] [address] [id number] [address] [place] [address], [place] [address] May, [facility] [address] [id number] [address] [place] [address], [place] [address] May, [facility] [address] [id number] [address] [place] [address], [place] [address] 17 Apr, 2014 [facility] [address] [id number] [address] [place] [address], [place] [address] 17 Apr, 2014 [facility] [address] [id number] [address] [place] [address], [place] [address] 17 Apr, 2014 [facility] [address] [id number] [address] [place] [address], [place] [address] 17 Apr, 2014 [facility] [address] [id number] [address] [place] [address], [place] [address] 16 Apr, 2014 [facility] [address] [id number] [address] [place] [address], [place] [address] 16 Apr, 2014 [facility] [address] [id number] [facility] [place] [address] Apr, [facility] [address] [id number] [address] [place] [address], [place] [address] Apr, [facility] [address] [id number] [address] [place] [address], [place] [address] Mar, [facility] [address] [id number] [address] [place] [address], [place] [address] Mar, [facility] [address] [id number] [address] [place] [address], [place] [address] Feb, [facility] [address] [id number] [address] [place] [address], [place] [address] Feb, [facility] [address] [id number] [address] [place] [address], [place] [address] Feb, [facility] [address] [id number] [address] [place] [address], [place] [address] Feb, [facility] [address] [id number] [address] [place] [address], [place] [address] Jan, [facility] [address] [id number] [address] [place] [address], [place] [address] Jan, [facility] [address] [id number] [address] [place] [address], [place] [address] Jan, [facility] [address] [id number] [address] [place] [address], [place] [address] Jan, [facility] [address] [id number] [address] [place] [address], [place] [address] Jan, [facility] [address] [id number] [address] [place] [address], [place] [address] Jan, [facility] [address] [id number] [address] [place] [address], [place] [address] December, [facility] [address] [id number] [facility] [place] [address] December, [facility] [address] [id number] [address] [place] [address], [place] [address] December, [facility] [address] [id number] [address] [place] [address], [place] [address] December, [facility] [address] [id number] [address] [place] [address], [place] [address] December, [facility] [address] [id number] [address] [place] [address], [place] [address] Nov, [facility] [address] [id number] [address] [place] [address], [place] [address] Nov, [facility] [address] [id number] [address] [place] [address], [place] [address] Nov, [facility] [address] [id number] [address] [place] [address], [place] [address] Nov, [facility] [address] [id number] [address] [place] [address], [place] [address] Nov, [facility] [address] [id number] [address] [place] [address], [place] [address] Nov, [facility] [address] [id number] [address] [place] [address], [place] [address] Oct, [facility] [address] [id number] [address] [place] [address], [place] [address] Oct, [facility] [address] [id number] [address] [place] [address], [place] [address] Oct, [facility] [address] [id number] [address] [place] [address], [place] [address] Oct, [facility] [address] [id number] [address] [place] [address], [place] [address] Sep, [facility] [address] [id number] [address] [place] [address], [place] [address] Sep, [facility] [address] [id number] [address] [place] [address], [place] [address] Sep, [facility] [address] [id number] [address] [place] [address], [place] [address] 10 Sep, 2013 [facility] [address] [id number] [address] [place] [address], [place] [address] Sep, 2013 [facility] [address] [id number] [address] [place] [address], [place] [address] Sep, 2013 [facility] [address] [id number] [address] [place] [address], [place] [address] Sep, 2013 [facility] [address] [id number] [address] [place] [address], [place] [address] Sep, 2013 [facility] [address] [id number] [address] [place] [address], [place] [address] Sep, [facility] [address] [id number] [address] [place] [address], [place] [address] Sep, [facility] [address] [id number] [address] [place] [address], [place] [address] Sep, 2013 [facility] [address] [id number] [address] [place] [address], [place] [address] Sep, [facility] [address] [id number] [address] [place] [address], [place] [address] Sep, [facility] [address] [id number] [address] [place] [address], [place] [address] Aug, [facility] [address] [id number] [address] [place] [address], [place] [address] Aug, [facility] [address] [id number] [address] [place] [address], [place] [address] Jul, [facility] [address] [id number] [address] [place] [address], [place] [address] Jul, [facility] [address] [id number] [address] [place] [address], [place] [address] Jun, [facility] [address] [id number] [address] [place] [address], [place] [address] Jun, [facility] [address] [id number] [address] [place] [address], [place] [address] May, [facility] [address] [id number] [address] [place] [address], [place] [address] Apr, [facility] [address] [id number] [address] [place] [address], [place] [address] Mar, [facility] [address] [id number] [address] [place] [address], [place] [address] Jan, [facility] [address] [id number] [address] [place] [address], [place] [address] December, [facility] [address] [id number] [address] [place] [address], [place] [address] December, [facility] [address] [id number] [address] [place] [address], [place] [address] Oct, [facility] [address] [id number] [address] [place] [address], [place] [address] Oct, [facility] [address] [id number] [address] [place] [address], [place] [address] Sep, [facility] [address] [id number] [address] [place] [address], [place] [address] Aug, [facility] [address] [id number] [address] [place] [address], [place] [address] Aug, [facility] [address] [id number] [address] [place] [address], [place] [address] Jul, [facility] [address] [id number] [address] [place] [address], [place] [address] Jul, [facility] [address] [id number] [address] [place] [address], [place] [address] Mar, [facility] [address] [id number] [address] [place] [address], [place] [address] Mar, [facility] [address] [id number] [address] [place] [address], [place] [address] Feb, [facility] [address] [id number] [address] [place] [address], [place] [address] Feb, [facility] [address] [id number] [address] [place] [address], [place] [address] Feb, [facility] [address] [id number] [address] [place] [address], [place] [address] Jan, [facility] [address] [id number] [address] [place] [address], [place] [address] Nov, [facility] [address] [id number] [address] [place] [address], [place] [address] Sep, [facility] [address] [id number] [address] [place] [address], [place] [address] Sep, [facility] [address] [id number] [address] [place] [address], [place] [address] Sep, [facility] [address] [id number] [address] [place] [address], [place] [address] Aug, [facility] [address] [id number] [address] [place] [address], [place] [address] Aug, [facility] [address] [id number] [address] [place] [address], [place] [address] Aug, [facility] [address] [id number] [address] [place] [address], [place] [address] Jun, [facility] [address] [id number] [address] [place] [address], [place] [address] Jun, [facility] [address] [id number] [address] [place] [address], [place] [address] Jun, [facility] [address] [id number] [address] [place] [id number] Jun, [facility] [address] [id number] [address] [place] [address] May, [facility] [address] [id number] [address] [place] [id number] May, [facility] [address] [id number] [address] [place] [phone] May, [facility] [address] [id number] [address] [place] [phone] May, [facility] [address] [id number] [address] [place] [phone] Jun, [facility] [address] [id number] [address] [place] [phone] December, [facility] [address] [id number] [address] [place] [phone] May, IMMUNIZATIONS No Known Immunizations SOCIAL HISTORY [...]
--- OUTSIDE RECORDS SUMMARY | 2020-03-17 19:21 | XMS REPORT ---
Author Author Ann MCHUGH Organization [facility] Address [address] [place] [address] Care Team Providers Care Grooving Machine Operator Name Role Phone RAFAELA MCHUGH Unavailable PROBLEMS Type Condition ICD9-CM Code [id number]-IL Code Onset Dates Condition S tatus SNOMED Code Problem Vitamin D deficiency E55.9 Active 33665363 Problem Perimenopausal N95.1 Active 46712 7406190956 Problem Chronic migraine G43.709 Active 377 82224 Problem Iron deficiency anemia, unspecified iron deficiency an emia type D50.9 Active 84392800 Problem Migraine without aura and without status migrain osus, not intractable G43.009 Active 674755690 Problem HTN (hypertension) 401.9 Active 3 7384561 Problem Seasonal allergic rhinitis, unspecified allergic rhinitis trigger J30.2 Active 522151663 Problem Chronic tension-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, 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 Active 151552771 ALLERGIES No Information SOCIAL HISTORY Never Assessed PLAN OF CARE VITAL SIGNS MEDICATIONS No Known Medications RESULTS No Results PROCEDURES No Known procedures IMMUNIZATIONS No Known Immunizations MEDICAL (GENERAL) HISTORY Type Description Date Medical History asthma-childhood agravated hot or cold Medical History seasonal allergies- nasal congestion, ot algia, eyes itch Medical History migraine headaches Medical History anemia Medical History high blood pressure Medical History Unspecified iron deficiency anemia Medical History Perimenopausal Medical History Vitamin D deficiency Surgical History cholecystectomy 2003 Hospitalization History choleystectomy
--- OUTSIDE RECORDS SUMMARY | 2020-03-17 19:21 | XMS REPORT ---
Author Author Ann MCHUGH Organization [facility] Address [address] [place] [address] Care Team Providers Care Supply Chain Tech Name Role Phone JEISONRAFAELA Unavailable PROBLEMS Type Condition ICD9-CM Code [id number] Code Onset Dates Condition S tatus SNOMED Code Problem Insomnia, unspecified 780.52 Active 007123746 Problem Irregular menstrual cycle 626.4 Acti ve 60729665 Problem Unspecified spontaneous without mention of complication 634.90 Active 68826739 Problem Family history of other cardiovascular diseases V17.49 Active 949478660 Problem Cellulitis and abscess of unspecified site 682.9 Active 202031286 Problem Family history of diabetes mellitus V18.0 Active 125789032 Problem Other abnormal blood chemistry 790.6 Active 739065882 Problem Procreative counseling and advice using natural family planning V26.41 Active 924358202 Problem Unspecified iron deficiency anemia 280.9 Active 67514184 Problem HTN (hypertension) 401.9 Active 3 9477436 Problem Unspecified episodic mood disorder 296.90 Active 285373737 Problem Chronic migraine G43.709 Active 377 62981 Problem Iron deficiency anemia, unspecified iron deficiency an emia type D50.9 Active 66628694 Problem Lateral epicondylitis of elbow 726.[address] of occurrence, home E849.0 Acti ve 12573195 Problem Unspecified sleep disturbance 780.50 Active 39950839 Problem Chronic tension-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, 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 Active 502631695 Problem Migraine without aura and without status migrain osus, not intractable G43.009 Active 493112335 Problem Irregular menses N92.6 Active 801 39977 Problem Seasonal allergic rhinitis, unspecified allergic rhinitis trigger J30.2 Active 839212325 Problem Need for prophylactic vaccination and inoculation, Influen za V04.81 Active 837525624 Problem Unspecified constipation 564.00 Activ e 25797727 Problem Influenza with other respiratory manifestations 487.1 Active 0171428 Problem Nausea alone 787.02 Active 9883998 07 Problem Migraine, unspecified withou t mention of intractable migraine without mention of status migrainosus 346.90 Active 83258846 Problem Unspecified disorders of bursae and tendons [facility] 726.10 Active 63323346 Problem Screening examination for venereal disease V74.5 Active 995852902 Problem Screening for malignant neoplasm of the cervix V76.2 Active 014405379 ALLERGIES Unknown Allergies SOCIAL HISTORY No smoking Hx information available PLAN OF CARE VITAL SIGNS MEDICATIONS Medication Instructions Dosage Frequency Start Date End Date Duration S tatus SudoGest 60 mg Orally every 6 hrs TAKE ONE TABLET BY MOUTH EVERY 6 MARNI RS 6h 90 days Active RESULTS No Results PROCEDURES No Known procedures IMMUNIZATIONS No Known Immunizations
--- OUTSIDE RECORDS SUMMARY | 2020-03-17 19:21 | XMS REPORT ---
Author Author Ann RAMOS Organization [facility] Address [address] [place] [address] Care Team Providers Care Manager Heavy Equipment Name Role Phone RACHEL VICTOR M Unavailable PROBLEMS Type Condition ICD9-CM Code [id number] Code Onset Dates Condition S tatus SNOMED Code Problem Perimenopausal N95.1 Active 18609 [id number] Problem Seasonal allergic rhinitis, unspecified allergic rhinitis trigger J30.2 Active 273707605 Problem HTN (hypertension) 401.9 Active 3 4330407 Problem Vitamin D deficiency E55.9 Active 42623023 Problem Anxiety F41.9 Active 35425219 Problem Nocturnal dyspnea R06.00 Active 24 9974666 Problem Iron deficiency anemia, unspecified iron deficiency an emia type D50.9 Active 89944258 Problem Chronic migraine G43.709 Active 377 62002 Problem Daytime hypersomnia G47.19 Active 50291459319083 Problem Carpal tunnel syndrome, bilateral G56.03 Active [id number] ALLERGIES No Information ENCOUNTERS Encounter Location Date Diagnosis [place] [address] [place] [id number] [address] [place] [address] Nov, Chronic migraine G43.709 ; S easonal allergic rhinitis, unspecified allergic rhinitis trigger J30.2 ; Vitamin D deficiency E55.9 ; Nocturnal dyspnea R06.00 ; Daytime hypersomnia G47.19 and Anxiety F41.9 [facility] [address] [facility] [id number] [address] [place] [address] Nov, Chronic migraine G43.709 [place] [address] [place] [id number] [address] [place] [address] Oct, [place] [address] [place] [id number] [address] [place] [address] Sep, Carpal tunnel syndrome, bila teral G56.03 [facility] [address] [facility] [id number] [address] [place] [address] Sep, Chronic migraine G43.709 [facility] [address] [facility] [id number] [address] [place] [address] Aug, [facility] [address] [facility] [id number] [address] [place] [address] Jul, Seasonal allergic rhinitis, unspecified allergic rhinitis trigger J30.2 [facility] [address] [facility] [id number] [address] [place] [address] Jul, Seasonal allergic rhinitis, unspecified allergic rhinitis trigger J30.2 [facility] [address] [facility] [id number] [address] [place] [address] Jul, Chronic migraine G43.709 [facility] [address] [facility] [id number] [address] [place] [address] Jun, [facility] [address] [facility] [id number] [place] [id number] May, Dental caries K02.9 [facility] [address] [facility] [id number] [address] [place] [address] May, Chronic migraine G43.709 [facility] [address] [facility] [id number] [address] [place] [address] Apr, Chronic migraine G43.709 ; I yvette deficiency anemia, unspecified iron deficiency anemia type D50.9 ; Perimenopausal N95.1 and Vitamin D deficiency E55.9 [facility] [address] [facility] [id number] [address] [place] [address] Mar, [facility] [address] [facility] [id number] [address] [place] [address] Mar, Seasonal allergic rhinitis, unspecified allergic rhinitis trigger J30.2 [facility] [address] [facility] [id number] [address] [place] [address] Mar, Chronic migraine G43.709 [facility] [address] [facility] [id number] [address] [place] [address] Mar, [facility] [address] [address] Mar, Chronic migraine G43.709 ; I rregular menses N92.6 ; Iron deficiency anemia, unspecified iron deficiency anemia type D50.9 and General medical exam Z00.00 [place] [address] [place] [id number] [address] [place] [address] Mar, Chronic migraine G43.709 ; I yvette deficiency anemia, unspecified iron deficiency anemia type D50.9 ; Irregular menses N92.6 and General medical exam Z00.00 [facility] [address] [place] [id number] [address] [place] [id number] Feb, Dental examination Z01.20 [place] [address] [address] Feb, Chronic tension-type headach e, 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 and Seasonal allergic rhinitis, unspecified allergic rhinitis trigger J30.2 [place] [address] [address] Feb, [place] [address] [place] [id number] [address] [place] [phone] Jan, Seasonal allergic rhinitis, unspecified allergic rhinitis trigger J30.2 [place] [address] [place] [id number] [address] [place] [address] December, Chronic tension-type headach e, 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 [facility] [address] [id number] [address] [place] [id number] December, Dental examination Z01.20 [place] [address] [facility] [id number] [address] [place] [address] December, [place] [address] [place] [id number] [address] [place] [address] Oct, [facility] [address] [facility] [id number] [address] [place] [address] Oct, [facility] [address] [place] [id number] [address] [place] [address] Oct, Sore throat J02.9 and Season al allergic rhinitis, unspecified allergic rhinitis trigger J30.2 [facility] [address] [place] [id number] [address] [place] [address] Oct, [facility] [address] [place] [id number] [address] [place] [address] Sep, [facility] [address] [address] Aug, Menstrual periods irregular N92.6 ; Chronic tension-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, 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 ; Acute upper respiratory infection, unspecified J06.9 and Other viral agents as the cause of diseases classified elsewhere B97.89 [facility] [address] [place] [id number] [address] [place] [address] Jul, [facility] [address] [place] [id number] [address] [place] [address] Jul, [facility] [address] [address] Jul, Migraine without aura and wi thout status migrainosus, not intractable G43.009 [facility] [address] [place] [id number] [address] [place] [phone] Jun, [facility] [address] [place] [id number] [address] [place] [address] May, Migraine without aura and wi thout status migrainosus, not intractable G43.009 [facility] [address] [place] [id number] [address] [place] [address] May, [facility] [address] [place] [id number] [address] [place] [address] May, [place] [id number] [place] [id number] [address] [place] [id number] Mar, Dental examination Z01.20 [facility] [address] [id number] [address] [place] [phone] Mar, [facility] [address] [id number] [address] [place] [address] Jan, Onychomycosis B35.1 [facility] [address] [id number] [address] [place] [address] Jan, [facility] [address] [id number] [address] [place] [address] December, Dental caries K02.9 [facility] [address] [id number] [address] [place] [address] Nov, Dental examination Z01.20 [facility] [address] [id number] [address] [place] [address] Oct, Dental examination Z01.20 [facility] [address] [id number] [address] [place] [phone] Oct, [facility] [address] [id number] [address] [place] [address] Oct, Migraine G43.909 [facility] [address] [id number] [address] [place] [address] Sep, Onychomycosis B35.1 [facility] [address] [id number] [address] [place] [id number] Sep, [facility] [address] [id number] [address] [place] [phone] Aug, [facility] [address] [id number] [address] [place] [phone] Jul, [facility] [address] [id number] [address] [place] [phone] Apr, [facility] [address] [place] [id number] [place] [address] Apr, Right anterior knee pain 719 .46 [facility] [address] [place] [id number] [place] [address] Mar, Tendonitis 726.90 ; HTN (hyp ertension) 401.9 ; Tremors of nervous system 781.0 and Anxiety 300.00 [facility] [address] [id number] Mar, Thrush 112.0 [facility] [address] [place] [id number] [place] [address] Feb, [facility] [address] [address] Feb, Tremors of nervous system 78 1.0 and Carpal tunnel syndrome 354.0 [facility] [address] [address] Jan, Anxiety 300.00 ; Tremors of nervous system 781.0 and Tendonitis 726.90 [facility] [address] [place] [id number] [place] [address] Jan, Anxiety 300.00 ; Tremors of nervous system 781.0 and Tendonitis 726.90 [facility] [address] [address] Jan, Sinusitis 473.9 [facility] [address] [place] [id number] [address] [place] [phone] December, [facility] [address] [place] [id number] [address] [place] [phone] December, [facility] [address] [place] [id number] [place] [phone] December, [facility] [address] [place] [id number] [place] [address] December, [facility] [address] [place] [id number] [place] [phone] December, [facility] [address] [id number] [address] [place] [address], [place] [address] Nov, [facility] [address] [id number] [address] [place] [address], [place] [address] Nov, [facility] [address] [id number] [address] [place] [address], [place] [address] Sep, 2014 [facility] [address] [id number] [address] [place] [address], [place] [address] Sep, 2014 [facility] [address] [id number] [address] [place] [address], [place] [address] Sep, 2014 [facility] [address] [id number] [address] [place] [address], [place] [address] Sep, 2014 [facility] [address] [id number] [address] [place] [address], [place] [address] Jul, [facility] [address] [id number] [address] [place] [address], [place] [address] Jul, [facility] [address] [id number] [address] [place] [address], [place] [address] Jul, [facility] [address] [id number] [address] [place] [address], [place] [address] Jul, [facility] [address] [id number] [address] [place] [address], [place] [address] Jul, [facility] [address] [id number] [address] [place] [address], [place] [address] Jul, [facility] [address] [id number] [address] [place] [address], [place] [address] Jul, [facility] [address] [id number] [address] [place] [address], [place] [address] Jul, [facility] [address] [id number] [address] [place] [address], [place] [address] Jul, [facility] [address] [id number] [address] [place] [address], [place] [address] Jul, [facility] [address] [id number] [address] [place] [address], [place] [address] Jun, [facility] [address] [id number] [address] [place] [address], [place] [address] Jun, [facility] [address] [id number] [address] [place] [address], [place] [address] Jun, [facility] [address] [id number] [address] [place] [address], [place] [address] Jun, [facility] [address] [id number] [address] [place] [address], [place] [address] May, [facility] [address] [id number] [address] [place] [address], [place] [address] May, [facility] [address] [id number] [address] [place] [address], [place] [address] May, [facility] [address] [id number] [address] [place] [address], [place] [address] 14 May, 2014 [facility] [address] [id number] [address] [place] [address], [place] [address] 17 Apr, 2014 [facility] [address] [id number] [address] [place] [address], [place] [address] 17 Apr, 2013 [facility] [address] [id number] [address] [place] [address], [place] [address] 17 Apr, 2013 [facility] [address] [id number] [address] [place] [address], [place] [address] 17 Sep, 2013 [facility] [address] [id number] [address] [place] [address], [place] [address] 16 Apr, 2013 [facility] [address] [id number] [address] [place] [address], [place] [address] 16 Apr, 2013 [facility] [address] [id number] [address] [place] [address], [place] [address] Apr, [facility] [address] [id number] [facility] [place] [address] Apr, [facility] [address] [id number] [facility] [place] [address] Mar, [facility] [address] [id number] [facility] [place] [address] Mar, [facility] [address] [id number] [address] [place] [address], [place] [address] Feb, [facility] [address] [id number] [address] [place] [address], [place] [address] Feb, [facility] [address] [id number] [address] [place] [address], [place] [address] Feb, [facility] [address] [id number] [address] [place] [address], [place] [address] Feb, [facility] [address] [id number] [address] [place] [address], [place] [address] Jan, [facility] [address] [id number] [address] [place] [address], [place] [address] Jan, [facility] [address] [id number] [address] [place] [address], [place] [address] Jan, [facility] [address] [id number] [address] [place] [address], [place] [address] Jan, [facility] [address] [id number] [address] [place] [address], [place] [address] Jan, [facility] [address] [id number] [address] [place] [address], [place] [address] Jan, [facility] [address] [id number] [address] [place] [address], [place] [address] December, [facility] [address] [id number] [address] [place] [address], [place] [address] December, [facility] [address] [id number] [address] [place] [address], [place] [address] December, [facility] [address] [id number] [address] [place] [address], [place] [address] December, [facility] [address] [id number] [address] [place] [address], [place] [address] December, [facility] [address] [id number] [address] [place] [address], [place] [address] Nov, [facility] [address] [id number] [address] [place] [address], [place] [address] Nov, [facility] [address] [id number] [address] [place] [address], [place] [address] Nov, [facility] [address] [id number] [address] [place] [address], [place] [address] Nov, [facility] [address] [id number] [address] [place] [address], [place] [address] Nov, [facility] [address] [id number] [address] [place] [address], [place] [address] Nov, [facility] [address] [id number] [address] [place] [address], [place] [address] Oct, [facility] [address] [id number] [address] [place] [address], [place] [address] Oct, [facility] [address] [id number] [address] [place] [address], [place] [address] Oct, [facility] [address] [id number] [address] [place] [address], [place] [address] Oct, [facility] [address] [id number] [address] [place] [address], [place] [address] Sep, [facility] [address] [id number] [address] [place] [address], [place] [address] Sep, [facility] [address] [id number] [address] [place] [address], [place] [address] Sep, [facility] [address] [id number] [address] [place] [address], [place] [address] 10 Sep, 2013 [facility] [address] [id number] [address] [place] [address], [place] [address] Sep, 2013 [facility] [address] [id number] [address] [place] [address], [place] [address] Sep, 2013 [facility] [address] [id number] [address] [place] [address], [place] [address] Sep, 2013 [facility] [address] [id number] [address] [place] [address], [place] [address] Sep, 2013 [facility] [address] [id number] [address] [place] [address], [place] [address] Sep, 2013 [facility] [address] [id number] [address] [place] [address], [place] [address] Sep, 2013 [facility] [address] [id number] [address] [place] [address], [place] [address] Sep, 2013 [facility] [address] [id number] [address] [place] [address], [place] [address] Sep, [facility] [address] [id number] [address] [place] [address], [place] [address] Sep, [facility] [address] [id number] [address] [place] [address], [place] [address] Aug, [facility] [address] [id number] [address] [place] [address], [place] [address] Aug, [facility] [address] [id number] [address] [place] [address], [place] [address] Jul, [facility] [address] [id number] [address] [place] [address], [place] [address] Jul, [facility] [address] [id number] [address] [place] [address], [place] [address] Jun, [facility] [address] [id number] [address] [place] [address], [place] [address] Jun, [facility] [address] [id number] [address] [place] [address], [place] [address] May, [facility] [address] [id number] [address] [place] [address], [place] [address] Apr, [facility] [address] [id number] [address] [place] [address], [place] [address] Mar, [facility] [address] [id number] [address] [place] [address], [place] [address] Jan, [facility] [address] [id number] [address] [place] [address], [place] [address] December, [facility] [address] [id number] [address] [place] [address], [place] [address] December, [facility] [address] [id number] [address] [place] [address], [place] [address] Oct, [facility] [address] [id number] [address] [place] [address], [place] [address] Oct, [facility] [address] [id number] [address] [place] [address], [place] [address] Sep, [facility] [address] [id number] [address] [place] [address], [place] [address] Aug, [facility] [address] [id number] [address] [place] [address], [place] [address] Aug, [facility] [address] [id number] [address] [place] [address], [place] [address] Jul, [facility] [address] [id number] [address] [place] [address], [place] [address] Jul, [facility] [address] [id number] [address] [place] [address], [place] [address] Mar, [facility] [address] [id number] [address] [place] [address], [place] [address] Mar, [facility] [address] [id number] [address] [place] [address], [place] [address] Feb, [facility] [address] [id number] [address] [place] [address], [place] [address] Feb, [facility] [address] [id number] [address] [place] [address], [place] [address] Feb, [facility] [address] [id number] [address] [place] [address], [place] [address] Jan, [facility] [address] [id number] [address] [place] [address], [place] [address] Nov, [facility] [address] [id number] [address] [place] [address], [place] [address] Sep, [facility] [address] [id number] [address] [place] [address], [place] [address] Sep, [facility] [address] [id number] [address] [place] [address], [place] [address] Sep, [facility] [address] [id number] [address] [place] [address], [place] [address] Aug, [facility] [address] [id number] [address] [place] [address], [place] [address] Aug, [facility] [address] [id number] [address] [place] [address], [place] [address] Aug, [facility] [address] [id number] [address] [place] [address], [place] [address] Jun, [facility] [address] [id number] [address] [place] [address], [place] [address] Jun, [facility] [address] [id number] [address] [place] [address], [place] [address] Jun, [facility] [address] [id number] [address] [place] [address], [place] [address] Jun, [facility] [address] [id number] [address] [place] [address] May, [facility] [address] [id number] [address] [place] [id number] May, [facility] [address] [facility] [id number] [address] [place] [id number] May, [facility] [address] [facility] [id number] [address] [place] [id number] May, [facility] [address] [facility] [id number] [address] [place] [id number] Jun, [facility] [address] [facility] [id number] [address] [place] [id number] December, [facility] [address] [facility] [id number] [address] [place] [phone] May, IMMUNIZATIONS No Known Immunizations SOCIAL HISTORY Never Assessed REASON FOR VISIT Refill request PLAN OF CARE VITAL SIGNS MEDICATIONS Medication Instructions Dosage Frequency Start Date End Date Duration S tatus Topamax 25 MG Orally 2 times a day 1 tablet 12h Active RESULTS No Results PROCEDURES No Known [...]
--- OUTSIDE RECORDS SUMMARY | 2020-03-17 19:21 | XMS REPORT ---
Author Author Ann SOLIMAN [facility] Address Unknown Care Team Providers Care Fountain Supervisor Name Role Phone TRAM SOLIMAN Unavailable PROBLEMS Type Condition ICD9-CM Code [id number] Code Onset Dates Condition S tatus SNOMED Code Problem Perimenopausal N95.1 Active 19288 [id number] Problem HTN (hypertension) 401.9 Active 3 5176808 Problem Vitamin D deficiency E55.9 Active 68524667 Problem Carpal tunnel syndrome, bilateral G56.03 Active 23450343664709593 Problem Chronic migraine G43.709 Active 377 10129 Problem Chronic tension-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, 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 Active 259965165 Problem Migraine without aura and without status migrain osus, not intractable G43.009 Active 133592729 Problem Iron deficiency anemia, unspecified iron deficiency an emia type D50.9 Active 54729635 Problem Seasonal allergic rhinitis, unspecified allergic rhinitis trigger J30.2 Active 690927599 ALLERGIES Substance Reaction Event Type Date Status Hydrocodone-Acetaminophen nausea and vomiting Drug Allergy Feb, Active ENCOUNTERS Encounter Location Date Diagnosis [facility] [address] [id number] [address] [place] [phone] Nov, [facility] [address] [id number] [address] [place] [id number] Nov, [facility] [id number] [place] [phone] Nov, [facility] [address] [id number] [address] [place] [address] Oct, [facility] [address] [id number] [address] [place] [address] Sep, Carpal tunnel syndrome, bila teral G56.03 [facility] [address] [id number] [address] [place] [id number] Sep, Chronic migraine G43.709 [facility] [id number] [place] [address] Aug, [facility] [address] [facility] [address] [facility] [id number] [place] [phone] Jul, Seasonal allergic rhinitis, unspecified allergic rhinitis trigger J30.2 [facility] [id number] [place] [phone] Jul, Seasonal allergic rhinitis, unspecified allergic rhinitis trigger J30.2 [facility] [id number] [place] [address] Jul, Chronic migraine G43.709 [facility] [id number] [place] [phone] Jun, [facility] [address] [id number] May, Dental caries K02.9 [facility] [address] [address] May, Chronic migraine G43.709 [facility] [address] [address] Apr, Chronic migraine G43.709 ; I yvette deficiency anemia, unspecified iron deficiency anemia type D50.9 ; Perimenopausal N95.1 and Vitamin D deficiency E55.9 [facility] [address] [id number] [address] [place] [address] Mar, [facility] [id number] [place] [address] Mar, Seasonal allergic rhinitis, unspecified allergic rhinitis trigger J30.2 [facility] [address] [facility] [address] [facility] [id number] [address] [place] [phone] Mar, Chronic migraine G43.709 [facility] [address] [id number] [address] [place] [address] Mar, [facility] [address] [id number] [address] [place] [address] Mar, Chronic migraine G43.709 ; I rregular menses N92.6 ; Iron deficiency anemia, unspecified iron deficiency anemia type D50.9 and General medical exam Z00.00 [facility] [address] [id number] [address] [place] [address] Mar, Chronic migraine G43.709 ; I yvette deficiency anemia, unspecified iron deficiency anemia type D50.9 ; Irregular menses N92.6 and General medical exam Z00.00 [facility] [address] [id number] [address] [place] [id number] Feb, Dental examination Z01.20 [facility] [address] [id number] [address] [place] [id number] Feb, Chronic tension-type headach e, 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 and Seasonal allergic rhinitis, unspecified allergic rhinitis trigger J30.2 [facility] [address] [id number] [address] [place] [phone] Feb, [facility] [address] [id number] [address] [place] [phone] Jan, Seasonal allergic rhinitis, unspecified allergic rhinitis trigger J30.2 [facility] [address] [id number] [address] [place] [address] December, Chronic tension-type headach e, 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 [facility] [address] [id number] [address] [place] [id number] December, Dental examination Z01.20 [facility] [address] [id number] [address] [place] [phone] December, [facility] [address] [id number] [address] [place] [phone] Oct, [facility] [address] [id number] [address] [place] [phone] Oct, [facility] [address] [address] [facility] [id number] [address] [place] [phone] Oct, Sore throat J02.9 and Season al allergic rhinitis, unspecified allergic rhinitis trigger J30.2 [facility] [address] [facility] [address] [facility] [id number] [address] [place] [phone] Oct, [facility] [id number] [place] [phone] Sep, [facility] [address] [facility] [address] [facility] [id number] [address] [place] [phone] Aug, Menstrual periods irregular N92.6 ; Chronic tension-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, 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 ; Acute upper respiratory infection, unspecified J06.9 and Other viral agents as the cause of diseases classified elsewhere B97.89 [facility] [address] [id number] [address] [place] [phone] Jul, [facility] [address] [id number] [address] [place] [phone] Jul, [facility] [id number] [place] [phone] Jul, Migraine without aura and wi thout status migrainosus, not intractable G43.009 [facility] [address] [id number] [address] [place] [phone] Jun, [facility] [address] [id number] [address] [place] [phone] May, Migraine without aura and wi thout status migrainosus, not intractable G43.009 [facility] [address] [id number] [address] [place] [phone] May, [facility] [address] [id number] [address] [place] [id number] May, [facility] [address] [id number] [address] [place] [id number] Mar, Dental examination Z01.20 [facility] [address] [id number] [address] [place] [phone] Mar, [facility] [address] [id number] [address] [place] [phone] Jan, Onychomycosis B35.1 [facility] [address] [id number] [address] [place] [phone] Jan, [facility] [address] [id number] [address] [place] [phone] December, Dental caries K02.9 [facility] [address] [id number] [address] [place] [phone] Nov, Dental examination Z01.20 [facility] [address] [id number] [address] [place] [address] Oct, Dental examination Z01.20 [facility] [address] [id number] [address] [place] [address] Oct, [facility] [address] [id number] [address] [place] [address] Oct, Migraine G43.909 [facility] [address] [id number] [address] [place] [phone] Sep, Onychomycosis B35.1 [facility] [address] [id number] [address] [place] [phone] Sep, [facility] [address] [id number] [address] [place] [id number] Aug, [facility] [address] [id number] [address] [place] [id number] Jul, [facility] [address] [id number] [address] [place] [id number] 16 Apr, 2015 [facility] [address] [id number] [address] [place] [id number] 10 Apr, 2015 Right anterior knee pain 719 .46 [facility] [address] [id number] [address] [place] [address] Mar, Tendonitis 726.90 ; HTN (hyp ertension) 401.9 ; Tremors of nervous system 781.0 and Anxiety 300.00 [facility] [address] [facility] [address] [facility] [id number] [address] [place] [id number] Mar, Thrush 112.0 [facility] [address] [facility] [address] [facility] [id number] [address] [place] [phone] Feb, [facility] [address] [address] [facility] [id number] [address] [place] [id number] Feb, Tremors of nervous system 78 1.0 and Carpal tunnel syndrome 354.0 [facility] [address] [facility] [id number] [address] [place] [phone] Jan, Anxiety 300.00 ; Tremors of nervous system 781.0 and Tendonitis 726.90 [facility] [address] [address] [facility] [id number] [address] [place] [phone] Jan, Anxiety 300.00 ; Tremors of nervous system 781.0 and Tendonitis 726.90 [facility] [address] [address] [facility] [id number] [address] [place] [phone] Jan, Sinusitis 473.9 [facility] [address] [address] [facility] [id number] [address] [place] [phone] December, [facility] [address] [address] [facility] [id number] [address] [place] [phone] December, [facility] [address] [facility] [id number] [address] [place] [phone] December, [facility] [address] [facility] [id number] [address] [place] [phone] December, [facility] [address] [facility] [address] [facility] [id number] [address] [place] [phone] December, [facility] [address] [id number] [address] [place] [address], [place] [address] 14 Nov, 2014 [facility] [address] [id number] [address] [place] [address], [place] [address] 13 Nov, 2014 [facility] [address] [id number] [address] [place] [address], [place] [address] Sep, 2014 [facility] [address] [id number] [address] [place] [address], [place] [address] Sep, 2014 [facility] [address] [id number] [address] [place] [address], [place] [address] Sep, 2014 [facility] [address] [id number] [address] [place] [address], [place] [address] Sep, 2014 [facility] [address] [id number] [address] [place] [address], [place] [address] Jul, [facility] [address] [id number] [address] [place] [address], [place] [address] Jul, [facility] [address] [id number] [address] [place] [address], [place] [address] Jul, [facility] [address] [id number] [address] [place] [address], [place] [address] Jul, [facility] [address] [id number] [address] [place] [address], [place] [address] Jul, [facility] [address] [id number] [address] [place] [address], [place] [address] Jul, [facility] [address] [id number] [address] [place] [address], [place] [address] Jul, [facility] [address] [id number] [address] [place] [address], [place] [address] Jul, [facility] [address] [id number] [address] [place] [address], [place] [address] Jul, [facility] [address] [id number] [address] [place] [address], [place] [address] Jul, [facility] [address] [id number] [address] [place] [address], [place] [address] Jun, [facility] [address] [id number] [address] [place] [address], [place] [address] Jun, [facility] [address] [id number] [address] [place] [address], [place] [address] Jun, [facility] [address] [id number] [address] [place] [address], [place] [address] Jun, [facility] [address] [id number] [address] [place] [address], [place] [address] May, [facility] [address] [id number] [address] [place] [address], [place] [address] May, [facility] [address] [id number] [address] [place] [address], [place] [address] May, [facility] [address] [id number] [address] [place] [address], [place] [address] 14 May, 2014 [facility] [address] [id number] [address] [place] [address], [place] [address] 17 Apr, 2014 [facility] [address] [id number] [address] [place] [address], [place] [address] 17 Apr, 2014 [facility] [address] [id number] [address] [place] [address], [place] [address] 17 Apr, 2013 [facility] [address] [id number] [address] [place] [address], [place] [address] 17 Apr, 2013 [facility] [address] [id number] [address] [place] [address], [place] [address] 16 Apr, 2013 [facility] [address] [id number] [address] [place] [address], [place] [address] 16 Apr, 2013 [facility] [address] [id number] [address] [place] [address], [place] [address] 03 Apr, 2013 [facility] [address] [id number] [address] [place] [phone] Apr, [facility] [address] [id number] [address] [place] [address], [place] [address] Mar, [facility] [address] [id number] [address] [place] [address], [place] [address] Mar, [facility] [address] [id number] [address] [place] [address], [place] [address] Feb, [facility] [address] [id number] [address] [place] [address], [place] [address] Feb, [facility] [address] [id number] [address] [place] [address], [place] [address] Feb, [facility] [address] [id number] [address] [place] [address], [place] [address] Feb, [facility] [address] [id number] [address] [place] [address], [place] [address] Jan, [facility] [address] [id number] [address] [place] [address], [place] [address] Jan, [facility] [address] [id number] [address] [place] [address], [place] [address] Jan, [facility] [address] [id number] [address] [place] [address], [place] [address] Jan, [facility] [address] [id number] [address] [place] [address], [place] [address] Jan, [facility] [address] [id number] [address] [place] [address], [place] [address] Jan, [facility] [address] [id number] [address] [place] [address], [place] [address] December, [facility] [address] [id number] [address] [place] [address], [place] [address] December, [facility] [address] [id number] [address] [place] [address], [place] [address] December, [facility] [address] [id number] [facility] [place] [address] December, [facility] [address] [id number] [address] [place] [address], [place] [address] December, [facility] [address] [id number] [facility] [place] [address] Nov, [facility] [address] [id number] [address] [place] [address], [place] [address] Nov, [facility] [address] [id number] [address] [place] [address], [place] [address] Nov, [facility] [address] [id number] [address] [place] [address], [place] [address] Nov, [facility] [address] [id number] [address] [place] [address], [place] [address] Nov, [facility] [address] [id number] [address] [place] [address], [place] [address] Nov, [facility] [address] [id number] [address] [place] [address], [place] [address] Oct, [facility] [address] [id number] [address] [place] [address], [place] [address] Oct, [facility] [address] [id number] [address] [place] [address], [place] [address] Oct, [facility] [address] [id number] [address] [place] [address], [place] [address] Oct, [facility] [address] [id number] [address] [place] [address], [place] [address] Sep, [facility] [address] [id number] [address] [place] [address], [place] [address] Sep, [facility] [address] [id number] [address] [place] [address], [place] [address] Sep, [facility] [address] [id number] [address] [place] [address], [place] [address] Sep, 2013 [facility] [address] [id number] [address] [place] [address], [place] [address] Sep, 2013 [facility] [address] [id number] [address] [place] [address], [place] [address] Sep, 2013 [facility] [address] [id number] [address] [place] [address], [place] [address] Sep, 2013 [facility] [address] [id number] [address] [place] [address], [place] [address] Sep, 2013 [facility] [address] [id number] [address] [place] [address], [place] [address] Sep, 2013 [facility] [address] [id number] [address] [place] [address], [place] [address] Sep, 2013 [facility] [address] [id number] [address] [place] [address], [place] [address] Sep, 2013 [facility] [address] [id number] [address] [place] [address], [place] [address] Sep, [facility] [address] [id number] [address] [place] [address], [place] [address] Sep, [facility] [address] [id number] [address] [place] [address], [place] [address] Aug, [facility] [address] [id number] [address] [place] [address], [place] [address] Aug, [facility] [address] [id number] [address] [place] [address], [place] [address] Jul, [facility] [address] [id number] [address] [place] [address], [place] [address] Jul, [facility] [address] [id number] [address] [place] [address], [place] [address] Jun, [facility] [address] [id number] [address] [place] [address], [place] [address] Jun, [facility] [address] [id number] [address] [place] [address], [place] [address] 08 May, 2013 [facility] [address] [id number] [address] [place] [address], [place] [address] Apr, [facility] [address] [id number] [address] [place] [address], [place] [address] Mar, [facility] [address] [id number] [address] [place] [address], [place] [address] Jan, [facility] [address] [id number] [address] [place] [address], [place] [address] December, [facility] [address] [id number] [address] [place] [address], [place] [address] December, [facility] [address] [id number] [address] [place] [address], [place] [address] Oct, [facility] [address] [id number] [address] [place] [address], [place] [address] Oct, [facility] [address] [id number] [address] [place] [address], [place] [address] Sep, [facility] [address] [id number] [address] [place] [address], [place] [address] Aug, [facility] [address] [id number] [address] [place] [address], [place] [address] Aug, [facility] [address] [id number] [address] [place] [address], [place] [address] Jul, [facility] [address] [id number] [address] [place] [address], [place] [address] Jul, [facility] [address] [id number] [address] [place] [address], [place] [address] Mar, [facility] [address] [id number] [address] [place] [address], [place] [address] Mar, [facility] [address] [id number] [address] [place] [address], [place] [address] Feb, [facility] [address] [id number] [address] [place] [address], [place] [address] Feb, [facility] [address] [id number] [address] [place] [address], [place] [address] Feb, [facility] [address] [id number] [address] [place] [address], [place] [address] Jan, [facility] [address] [id number] [address] [place] [address], [place] [address] Nov, [facility] [address] [id number] [address] [place] [address], [place] [address] Sep, [facility] [address] [id number] [address] [place] [address], [place] [address] Sep, [facility] [address] [id number] [address] [place] [address], [place] [address] Sep, [facility] [address] [id number] [address] [place] [address], [place] [address] Aug, [facility] [address] [id number] [address] [place] [address], [place] [address] Aug, [facility] [address] [id number] [address] [place] [address], [place] [address] Aug, [facility] [address] [id number] [address] [place] [address], [place] [address] Jun, [facility] [address] [id number] [address] [place] [address], [place] [address] Jun, [facility] [address] [id number] [address] [place] [address], [place] [address] Jun, [facility] [address] [id number] [address] [place] [address], [place] [address] Jun, [facility] [address] [id number] [address] [place] [address], [place] [address] May, [facility] [address] [facility] [id number] [address] [place], [place] [phone] May, [facility] [address] [facility] [address] [facility] [id number] [address] [place] [phone] May, [facility] [address] [facility] [address] [facility] [id number] [address] [place] [phone] May, [facility] [address] [facility] [address] [facility] [id number] [address] [place] [phone] Jun, [facility] [address] [facility] [address] [facility] [id number] [address] [place] [phone] December, [facility] [address] [facility] [address] [facility] [id number] [address] [place] [phone] May, IMMUNIZATIONS No Known Immunizations SOCIAL HISTORY Never Assessed REASON FOR VISIT FILLING PLAN OF CARE Activity Details Follow Up prn Reason:te #32. 1 hour VITAL SIGNS Blood pressure systolic 135 mmHg 2017-02-24 Blood pressure diastolic 91 mmHg 2017-02-24 MEDICATIONS Medication Instructions Dosage Frequency Start Date End Date Duration S tatus SudoGest 60 MG Orally every 6 hrs 1 tablet as needed 6h 30 days Active ProAir HFA 90 mcg/actuation inhale 2 puf fs by inhalation route every 6 hours PRN shortness of breath/cough Jul, Active Ferrous Sulfate 325 mg (65 mg iron) 1 Ta blet by Oral route 2 times per day give with food 17 Apr, 2014 Active Propranolol HCl 60 MG Orally Twice a day 1 tablet 12h 30 Active Oartfjhsct-LBJE-Iuorvalu 50-325-40 MG Orally every 4 hrs 1 tablet a s needed 4h Aug, Active Xanax 1 MG Orally Twice a day 1 tablet 12h December, 28 d ays Active Baclofen 20 MG TAKE ONE TABLET BY MOUTH THREE TIMES DAILY NEE DED 30 Active Flonase 50 mcg/actuation Nasally 1spray(s) intranasally once a day take 1 sprays by Nasal route 1 time per day in each nostril Sep, 30 days Active Proventil HFA 108 (90 Base) MCG/ACT INHA LE TWO PUFFS BY MOUTH EVERY 6 HOURS NEEDED FOR SHORTNESS OF BREATH/COUGH 25 Active Zyrtec Allergy Active Neurontin 100 MG Orally Three times a day 1 capsule 8h 30 Active RESULTS No Results PROCEDURES Procedure Date Ordered Result Body Site RESIN COMPOS - 1 SURFACE POSTERIOR February 24, 2017 Billing Notes on claim February 24, 2017 [employer] Employee/Board adjustment February 24, 2017 INSTRUCTIONS MEDICATIONS ADMINISTERED No Known Medications MEDICAL [...]
--- OUTSIDE RECORDS SUMMARY | 2020-03-17 19:21 | XMS REPORT ---
Author Author Ann MCHUGH Organization [facility] Address [address] [place] [address] Care Team Providers Care Wool Cleaner Name Role Phone RAFAELA MCHUGH Unavailable PROBLEMS Type Condition ICD9-CM Code [id number]-EX Code Onset Dates Condition S tatus SNOMED Code Problem Vitamin D deficiency E55.9 Active 44643823 Problem Perimenopausal N95.1 Active 33624 [id number] Problem Chronic migraine G43.709 Active 377 10433 Problem Iron deficiency anemia, unspecified iron deficiency an emia type D50.9 Active 96156206 Problem Migraine without aura and without status migrain osus, not intractable G43.009 Active 527455361 Problem HTN (hypertension) 401.9 Active 3 3392841 Problem Seasonal allergic rhinitis, unspecified allergic rhinitis trigger J30.2 Active 559931304 Problem Chronic tension-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, 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 Active 747902515 ALLERGIES No Information SOCIAL HISTORY Never Assessed PLAN OF CARE VITAL SIGNS MEDICATIONS Medication Instructions Dosage Frequency Start Date End Date Duration S tatus Xanax 1 MG Orally Twice a day 1 tablet 12h 08 Dec, 2014 28 d ays Active Brseapzgun-HYAE-Dwiyhclt 50-325-40 MG Orally every 4 hrs 1 tablet a s needed 4h Aug, Active RESULTS No Results PROCEDURES No Known [...]
--- OUTSIDE RECORDS SUMMARY | 2020-03-17 19:21 | XMS REPORT ---
Author Author Ann RAMOS Organization [facility] Address [address] [place] [address] Care Team Providers Care Senior Investment Analyst Name Role Phone RACHEL VICTOR M Unavailable PROBLEMS Type Condition ICD9-CM Code [id number] Code Onset Dates Condition S tatus SNOMED Code Problem Perimenopausal N95.1 Active 24598 [id number] Problem Seasonal allergic rhinitis, unspecified allergic rhinitis trigger J30.2 Active 859233851 Problem HTN (hypertension) 401.9 Active 3 0151627 Problem Vitamin D deficiency E55.9 Active 75049126 Problem Anxiety F41.9 Active 60208067 Problem Nocturnal dyspnea R06.00 Active 24 2607647 Problem Iron deficiency anemia, unspecified iron deficiency an emia type D50.9 Active 87893709 Problem Chronic migraine G43.709 Active 377 46909 Problem Daytime hypersomnia G47.19 Active [id number] Problem Carpal tunnel syndrome, bilateral G56.03 Active [id number] ALLERGIES No Information ENCOUNTERS Encounter Location Date Diagnosis [place] [address] [place] [id number] [place] [address] December, Anxiety F41.9 [place] [address] [address] Nov, Chronic migraine G43.709 ; S easonal allergic rhinitis, unspecified allergic rhinitis trigger J30.2 ; Vitamin D deficiency E55.9 ; Nocturnal dyspnea R06.00 ; Daytime hypersomnia G47.19 and Anxiety F41.9 [place] [address] [place] [id number] [address] [place] [address] Nov, Chronic migraine G43.709 [place] [address] [place] [id number] [place] [address] Oct, [facility] [address] [facility] [id number] [address] [place] [address] Sep, Carpal tunnel syndrome, bila teral G56.03 [facility] [address] [facility] [id number] [address] [place] [address] Sep, Chronic migraine G43.709 [facility] [address] [facility] [id number] [address] [place] [address] Aug, [facility] [address] [facility] [id number] [place] [address] Jul, Seasonal allergic rhinitis, unspecified allergic rhinitis trigger J30.2 [place] [address] [place] [id number] [place] [address] Jul, Seasonal allergic rhinitis, unspecified allergic rhinitis trigger J30.2 [place] [address] [address] Jul, Chronic migraine G43.709 [facility] [address] [facility] [id number] [address] [place] [address] Jun, [facility] [id number] [place] [id number] May, Dental caries K02.9 [facility] [address] [place] [id number] [address] [place] [address] May, Chronic migraine G43.709 [facility] [address] [place] [id number] [address] [place] [address] Apr, Chronic migraine G43.709 ; I yvette deficiency anemia, unspecified iron deficiency anemia type D50.9 ; Perimenopausal N95.1 and Vitamin D deficiency E55.9 [facility] [address] [facility] [id number] [address] [place] [address] Mar, [facility] [address] [place] [id number] [address] [place] [address] Mar, Seasonal allergic rhinitis, unspecified allergic rhinitis trigger J30.2 [facility] [address] [id number] [address] [place] [address] Mar, Chronic migraine G43.709 [facility] [address] [id number] [address] [place] [address] Mar, [facility] [address] [facility] [id number] [address] [place] [address] Mar, Chronic migraine G43.709 ; I rregular menses N92.6 ; Iron deficiency anemia, unspecified iron deficiency anemia type D50.9 and General medical exam Z00.00 [facility] [address] [id number] [address] [place] [address] Mar, Chronic migraine G43.709 ; I yvette deficiency anemia, unspecified iron deficiency anemia type D50.9 ; Irregular menses N92.6 and General medical exam Z00.00 [facility] [id number] [place] [address] [id number] Feb, Dental examination Z01.20 [facility] [address] [id number] [address] [place] [address] Feb, Chronic tension-type headach e, 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 and Seasonal allergic rhinitis, unspecified allergic rhinitis trigger J30.2 [facility] [address] [id number] [address] [place] [address] Feb, [facility] [address] [id number] [address] [place] [address] Jan, Seasonal allergic rhinitis, unspecified allergic rhinitis trigger J30.2 [facility] [address] [id number] [address] [place] [address] December, Chronic tension-type headach e, 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 [facility] [address] [id number] [address] [place] [address] [id number] December, Dental examination Z01.20 [facility] [address] [id number] [address] [place] [address] December, [facility] [address] [facility] [id number] [address] [place] [address] Oct, [facility] [address] [facility] [id number] [address] [place] [address] Oct, [facility] [address] [facility] [id number] [address] [place] [address] Oct, Sore throat J02.9 and Season al allergic rhinitis, unspecified allergic rhinitis trigger J30.2 [facility] [address] [facility] [id number] [address] [place] [address] Oct, [facility] [address] [facility] [id number] [address] [place] [address] Sep, [facility] [address] [facility] [id number] [address] [place] [address] Aug, Menstrual periods irregular N92.6 ; Chronic tension-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, 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 ; Acute upper respiratory infection, unspecified J06.9 and Other viral agents as the cause of diseases classified elsewhere B97.89 [facility] [address] [facility] [id number] [address] [place] [address] Jul, [facility] [address] [facility] [id number] [address] [place] [address] Jul, [facility] [address] [facility] [id number] [address] [place] [address] Jul, Migraine without aura and wi thout status migrainosus, not intractable G43.009 [facility] [address] [facility] [id number] [address] [place] [address] Jun, [facility] [address] [facility] [id number] [address] [place] [address] May, Migraine without aura and wi thout status migrainosus, not intractable G43.009 [facility] [address] [facility] [id number] [address] [place] [address] May, [facility] [address] [id number] [address] [place] [address] May, [facility] [address] [id number] [address] [place] [address] [id number] Mar, Dental examination Z01.20 [facility] [address] [id number] [address] [place] [address] Mar, [facility] [address] [id number] [address] [place] [address] Jan, Onychomycosis B35.1 [facility] [address] [id number] [address] [place] [address] Jan, [facility] [address] [id number] [address] [place] [address] December, Dental caries K02.9 [facility] [address] [id number] [address] [place] [address] Nov, Dental examination Z01.20 [facility] [address] [id number] [address] [place] [address] Oct, Dental examination Z01.20 [facility] [address] [id number] [address] [place] [address] Oct, [facility] [address] [id number] [address] [place] [address] Oct, Migraine G43.909 [facility] [address] [id number] [address] [place] [address] Sep, Onychomycosis B35.1 [facility] [address] [id number] [address] [place] [address] Sep, [facility] [address] [id number] [address] [place] [address] Aug, [facility] [address] [id number] [address] [place] [address] Jul, [facility] [address] [facility] [id number] [address] [place] [address] 16 Apr, 2015 [facility] [address] [facility] [id number] [address] [place] [address] 10 Apr, 2015 Right anterior knee pain 719 .46 [facility] [address] [facility] [id number] [address] [place] [address] 14 Mar, 2015 Tendonitis 726.90 ; HTN (hyp ertension) 401.9 ; Tremors of nervous system 781.0 and Anxiety 300.00 [facility] [address] [facility] [id number] [address] [place] [address] Mar, Thrush 112.0 [facility] [address] [facility] [id number] [address] [place] [address] Feb, [facility] [address] [place] [id number] [place] [address] Feb, Tremors of nervous system 78 1.0 and Carpal tunnel syndrome 354.0 [facility] [address] [facility] [id number] [address] [place] [address] Jan, Anxiety 300.00 ; Tremors of nervous system 781.0 and Tendonitis 726.90 [facility] [address] [facility] [id number] [address] [place] [address] Jan, Anxiety 300.00 ; Tremors of nervous system 781.0 and Tendonitis 726.90 [facility] [address] [facility] [id number] [address] [place] [address] Jan, Sinusitis 473.9 [facility] [address] [facility] [id number] [address] [place] [address] December, [facility] [address] [place] [id number] [address] [place] [address] December, [facility] [address] [place] [id number] [address] [place] [address] December, [facility] [address] [place] [id number] [place] [address] December, [facility] [address] [id number] [address] [place] [address], [place] [address] December, [facility] [address] [id number] [address] [place] [address], [place] [address] Nov, [facility] [address] [id number] [address] [place] [address], [place] [address] Nov, [facility] [address] [id number] [address] [place] [address], [place] [address] Sep, 2014 [facility] [address] [id number] [address] [place] [address], [place] [address] Sep, 2014 [facility] [address] [id number] [address] [place] [address], [place] [address] Sep, 2014 [facility] [address] [id number] [address] [place] [address], [place] [address] Sep, 2014 [facility] [address] [id number] [address] [place] [address], [place] [address] Jul, [facility] [address] [id number] [address] [place] [address], [place] [address] Jul, [facility] [address] [id number] [address] [place] [address], [place] [address] Jul, [facility] [address] [id number] [address] [place] [address], [place] [address] Jul, [facility] [address] [id number] [address] [place] [address], [place] [address] Jul, [facility] [address] [id number] [address] [place] [address], [place] [address] Jul, [facility] [address] [id number] [address] [place] [address], [place] [address] Jul, [facility] [address] [id number] [address] [place] [address], [place] [address] Jul, [facility] [address] [id number] [address] [place] [address], [place] [address] Jul, [facility] [address] [id number] [address] [place] [address], [place] [address] Jul, [facility] [address] [id number] [address] [place] [address], [place] [address] Jun, [facility] [address] [id number] [address] [place] [address], [place] [address] Jun, [facility] [address] [id number] [address] [place] [address], [place] [address] Jun, [facility] [address] [id number] [address] [place] [address], [place] [address] Jun, [facility] [address] [id number] [address] [place] [address], [place] [address] May, [facility] [address] [id number] [address] [place] [address], [place] [address] May, [facility] [address] [id number] [address] [place] [address], [place] [address] May, [facility] [address] [id number] [address] [place] [address], [place] [address] May, [facility] [address] [id number] [address] [place] [address], [place] [address] 17 Apr, 2014 [facility] [address] [id number] [address] [place] [address], [place] [address] 17 Apr, 2014 [facility] [address] [id number] [address] [place] [address], [place] [address] 17 Apr, 2014 [facility] [address] [id number] [address] [place] [address], [place] [address] 17 Apr, 2014 [facility] [address] [id number] [address] [place] [address], [place] [address] 16 Apr, 2014 [facility] [address] [id number] [address] [place] [address], [place] [address] 16 Apr, 2014 [facility] [address] [id number] [facility] [place] [address] Apr, [facility] [address] [id number] [address] [place] [address], [place] [address] Apr, [facility] [address] [id number] [address] [place] [address], [place] [address] Mar, [facility] [address] [id number] [address] [place] [address], [place] [address] Mar, [facility] [address] [id number] [address] [place] [address], [place] [address] Feb, [facility] [address] [id number] [address] [place] [address], [place] [address] Feb, [facility] [address] [id number] [address] [place] [address], [place] [address] Feb, [facility] [address] [id number] [address] [place] [address], [place] [address] Feb, [facility] [address] [id number] [address] [place] [address], [place] [address] Jan, [facility] [address] [id number] [address] [place] [address], [place] [address] Jan, [facility] [address] [id number] [address] [place] [address], [place] [address] Jan, [facility] [address] [id number] [address] [place] [address], [place] [address] Jan, [facility] [address] [id number] [address] [place] [address], [place] [address] Jan, [facility] [address] [id number] [address] [place] [address], [place] [address] Jan, [facility] [address] [id number] [address] [place] [address], [place] [address] December, [facility] [address] [id number] [facility] [place] [address] December, [facility] [address] [id number] [address] [place] [address], [place] [address] December, [facility] [address] [id number] [address] [place] [address], [place] [address] December, [facility] [address] [id number] [address] [place] [address], [place] [address] December, [facility] [address] [id number] [address] [place] [address], [place] [address] Nov, [facility] [address] [id number] [address] [place] [address], [place] [address] Nov, [facility] [address] [id number] [address] [place] [address], [place] [address] Nov, [facility] [address] [id number] [address] [place] [address], [place] [address] Nov, [facility] [address] [id number] [address] [place] [address], [place] [address] Nov, [facility] [address] [id number] [address] [place] [address], [place] [address] Nov, [facility] [address] [id number] [address] [place] [address], [place] [address] Oct, [facility] [address] [id number] [address] [place] [address], [place] [address] Oct, [facility] [address] [id number] [address] [place] [address], [place] [address] Oct, [facility] [address] [id number] [address] [place] [address], [place] [address] Oct, [facility] [address] [id number] [address] [place] [address], [place] [address] Sep, [facility] [address] [id number] [address] [place] [address], [place] [address] Sep, [facility] [address] [id number] [address] [place] [address], [place] [address] Sep, [facility] [address] [id number] [address] [place] [address], [place] [address] 10 Sep, 2013 [facility] [address] [id number] [address] [place] [address], [place] [address] Sep, 2013 [facility] [address] [id number] [address] [place] [address], [place] [address] Sep, 2013 [facility] [address] [id number] [address] [place] [address], [place] [address] Sep, 2013 [facility] [address] [id number] [address] [place] [address], [place] [address] Sep, 2013 [facility] [address] [id number] [address] [place] [address], [place] [address] Sep, [facility] [address] [id number] [address] [place] [address], [place] [address] Sep, [facility] [address] [id number] [address] [place] [address], [place] [address] Sep, 2013 [facility] [address] [id number] [address] [place] [address], [place] [address] Sep, [facility] [address] [id number] [address] [place] [address], [place] [address] Sep, [facility] [address] [id number] [address] [place] [address], [place] [address] Aug, [facility] [address] [id number] [address] [place] [address], [place] [address] Aug, [facility] [address] [id number] [address] [place] [address], [place] [address] Jul, [facility] [address] [id number] [address] [place] [address], [place] [address] Jul, [facility] [address] [id number] [address] [place] [address], [place] [address] Jun, [facility] [address] [id number] [address] [place] [address], [place] [address] Jun, [facility] [address] [id number] [address] [place] [address], [place] [address] May, [facility] [address] [id number] [address] [place] [address], [place] [address] Apr, [facility] [address] [id number] [address] [place] [address], [place] [address] Mar, [facility] [address] [id number] [address] [place] [address], [place] [address] Jan, [facility] [address] [id number] [address] [place] [address], [place] [address] December, [facility] [address] [id number] [address] [place] [address], [place] [address] December, [facility] [address] [id number] [address] [place] [address], [place] [address] Oct, [facility] [address] [id number] [address] [place] [address], [place] [address] Oct, [facility] [address] [id number] [address] [place] [address], [place] [address] Sep, [facility] [address] [id number] [address] [place] [address], [place] [address] Aug, [facility] [address] [id number] [address] [place] [address], [place] [address] Aug, [facility] [address] [id number] [address] [place] [address], [place] [address] Jul, [facility] [address] [id number] [address] [place] [address], [place] [address] Jul, [facility] [address] [id number] [address] [place] [address], [place] [address] Mar, [facility] [address] [id number] [address] [place] [address], [place] [address] Mar, [facility] [address] [id number] [address] [place] [address], [place] [address] Feb, [facility] [address] [id number] [address] [place] [address], [place] [address] Feb, [facility] [address] [id number] [address] [place] [address], [place] [address] Feb, [facility] [address] [id number] [address] [place] [address], [place] [address] Jan, [facility] [address] [id number] [address] [place] [address], [place] [address] Nov, [facility] [address] [id number] [address] [place] [address], [place] [address] Sep, [facility] [address] [id number] [address] [place] [address], [place] [address] Sep, [facility] [address] [id number] [address] [place] [address], [place] [address] Sep, [facility] [address] [id number] [address] [place] [address], [place] [address] Aug, [facility] [address] [id number] [address] [place] [address], [place] [address] Aug, [facility] [address] [id number] [address] [place] [address], [place] [address] Aug, [facility] [address] [id number] [address] [place] [address], [place] [address] Jun, [facility] [address] [id number] [address] [place] [address], [place] [address] Jun, [facility] [address] [id number] [address] [place] [address], [place] [address] Jun, [facility] [address] [id number] [address] [place] [address] Jun, [facility] [address] [id number] [address] [place] [id number] May, [facility] [address] [id number] [address] [place] [id number] May, [facility] [address] [id number] [address] [place] [address] May, [facility] [address] [id number] [address] [place] [address] May, [facility] [address] [id number] [address] [place] [id number] Jun, [facility] [address] [id number] [address] [place] [address] December, [facility] [address] [facility] [id number] [address] [place] [id number] May, IMMUNIZATIONS No Known Immunizations SOCIAL HISTORY [...]
--- OUTSIDE RECORDS SUMMARY | 2020-03-17 19:22 | XMS REPORT ---
Author Author Ann RMAOS Organization [facility] Address [address] [place] [address] Care Team Providers Care Rn Integrated Name Role Phone RACHEL VICTOR M Unavailable PROBLEMS Type Condition ICD9-CM Code DZT15-SX Code Onset Dates Condition S tatus SNOMED Code Problem Perimenopausal N95.1 Active 99785 [id number] Problem Seasonal allergic rhinitis, unspecified allergic rhinitis trigger J30.2 Active 665863963 Problem HTN (hypertension) 401.9 Active 3 3258566 Problem Vitamin D deficiency E55.9 Active 75742208 Problem Anxiety F41.9 Active 70392737 Problem Nocturnal dyspnea R06.00 Active 24 3502156 Problem Iron deficiency anemia, unspecified iron deficiency an emia type D50.9 Active 34519302 Problem Chronic migraine G43.709 Active 377 39411 Problem Daytime hypersomnia G47.19 Active [id number] Problem Carpal tunnel syndrome, bilateral G56.03 Active [id number] ALLERGIES No Information ENCOUNTERS Encounter Location Date Diagnosis [place] [id number] [place] [phone] Jan, [place] [address] [place] [id number] [address] [place] [address] Jan, Chronic migraine G43.709 and Anxiety F41.9 [place] [address] [place] [id number] [address] [place] [address] December, Anxiety F41.9 [place] [address] [place] [id number] [address] [place] [address] Nov, Chronic migraine G43.709 ; S easonal allergic rhinitis, unspecified allergic rhinitis trigger J30.2 ; Vitamin D deficiency E55.9 ; Nocturnal dyspnea R06.00 ; Daytime hypersomnia G47.19 and Anxiety F41.9 [facility] [address] [facility] [id number] [address] [place] [address] Nov, Chronic migraine G43.709 [facility] [address] [facility] [id number] [address] [place] [phone] Oct, [facility] [address] [facility] [id number] [address] [place] [phone] Sep, Carpal tunnel syndrome, bila teral G56.03 [facility] [address] [facility] [id number] [address] [place] [address] Sep, Chronic migraine G43.709 [facility] [address] [facility] [id number] [address] [place] [phone] Aug, [facility] [address] [facility] [id number] [address] [place] [phone] Jul, Seasonal allergic rhinitis, unspecified allergic rhinitis trigger J30.2 [facility] [address] [facility] [id number] [address] [place] [phone] Jul, Seasonal allergic rhinitis, unspecified allergic rhinitis trigger J30.2 [facility] [address] [facility] [id number] [address] [place] [address] Jul, Chronic migraine G43.709 [facility] [address] [facility] [id number] [address] [place] [address] Jun, [facility] [address] [facility] [id number] [address] [place] [id number] May, Dental caries K02.9 [facility] [address] [facility] [id number] [address] [place] [address] May, Chronic migraine G43.709 [facility] [address] [facility] [id number] [address] [place] [address] Apr, Chronic migraine G43.709 ; I yvette deficiency anemia, unspecified iron deficiency anemia type D50.9 ; Perimenopausal N95.1 and Vitamin D deficiency E55.9 [place] [address] [id number] [address] [place] [phone] Mar, [place] [address] [facility] [id number] [address] [place] [address] Mar, Seasonal allergic rhinitis, unspecified allergic rhinitis trigger J30.2 [place] [address] [facility] [id number] [address] [place] [address] Mar, Chronic migraine G43.709 [place] [address] [facility] [id number] [address] [place] [address] Mar, [place] [address] [facility] [id number] [address] [place] [address] Mar, Chronic migraine G43.709 ; I rregular menses N92.6 ; Iron deficiency anemia, unspecified iron deficiency anemia type D50.9 and General medical exam Z00.00 [place] [address] [place] [id number] [address] [place] [address] Mar, Chronic migraine G43.709 ; I yvette deficiency anemia, unspecified iron deficiency anemia type D50.9 ; Irregular menses N92.6 and General medical exam Z00.00 [facility] [address] [facility] [id number] [address] [place] [address] [id number] Feb, Dental examination Z01.20 [facility] [address] [facility] [id number] [address] [place] [phone] Feb, Chronic tension-type headach e, 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 and Seasonal allergic rhinitis, unspecified allergic rhinitis trigger J30.2 [place] [address] [facility] [id number] [address] [place] [phone] Feb, [place] [address] [facility] [id number] [address] [place] [phone] Jan, Seasonal allergic rhinitis, unspecified allergic rhinitis trigger J30.2 [facility] [address] [facility] [id number] [address] [place] [address] December, Chronic tension-type headach e, 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 [facility] [address] [id number] [address] [place] [address] [id number] December, Dental examination Z01.20 [facility] [address] [place] [id number] [address] [place] [phone] December, [facility] [address] [place] [id number] [address] [place] [phone] Oct, [facility] [address] [place] [id number] [address] [place] [phone] Oct, [facility] [address] [place] [id number] [address] [place] [phone] Oct, Sore throat J02.9 and Season al allergic rhinitis, unspecified allergic rhinitis trigger J30.2 [facility] [address] [place] [id number] [address] [place] [phone] Oct, [facility] [address] [place] [id number] [address] [place] [phone] Sep, [facility] [address] [place] [id number] [address] [place] [phone] Aug, Menstrual periods irregular N92.6 ; Chronic tension-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, 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 ; Acute upper respiratory infection, unspecified J06.9 and Other viral agents as the cause of diseases classified elsewhere B97.89 [facility] [address] [place] [id number] [address] [place] [phone] Jul, [facility] [address] [place] [id number] [address] [place] [phone] Jul, [facility] [address] [address] Jul, Migraine without aura and wi thout status migrainosus, not intractable G43.009 [facility] [address] [place] [id number] [address] [place] [phone] Jun, [facility] [address] [place] [address] May, Migraine without aura and wi thout status migrainosus, not intractable G43.009 [facility] [address] [id number] [address] [place] [phone] May, [facility] [address] [facility] [id number] [address] [place] [phone] May, [facility] [address] [id number] [address] [place] [address] [id number] Mar, Dental examination Z01.20 [facility] [address] [id number] [address] [place] [phone] Mar, [facility] [address] [facility] [id number] [address] [place] [phone] Jan, Onychomycosis B35.1 [facility] [address] [facility] [id number] [address] [place] [phone] Jan, [facility] [address] [id number] [address] [place] [phone] December, Dental caries K02.9 [facility] [address] [id number] [address] [place] [phone] Nov, Dental examination Z01.20 [facility] [address] [id number] [address] [place] [phone] Oct, Dental examination Z01.20 [facility] [address] [id number] [address] [place] [phone] Oct, [facility] [address] [id number] [address] [place] [address] Oct, Migraine G43.909 [facility] [address] [facility] [id number] [address] [place] [phone] Sep, Onychomycosis B35.1 [facility] [address] [id number] [address] [place] [phone] Sep, [facility] [address] [facility] [id number] [address] [place] [phone] Aug, [facility] [address] [facility] [id number] [address] [place] [phone] Jul, [facility] [address] [facility] [id number] [address] [place] [phone] 16 Apr, 2015 [facility] [address] [place] [id number] [place] [address] 10 Apr, 2015 Right anterior knee pain 719 .46 [facility] [address] [facility] [id number] [address] [place] [phone] Mar, Tendonitis 726.90 ; HTN (hyp ertension) 401.9 ; Tremors of nervous system 781.0 and Anxiety 300.00 [facility] [address] [place] [id number] [address] [place] [phone] Mar, Thrush 112.0 [facility] [address] [place] [id number] [address] [place] [phone] Feb, [facility] [address] [address] Feb, Tremors of nervous system 78 1.0 and Carpal tunnel syndrome 354.0 [facility] [address] [place] [id number] [address] [place] [phone] Jan, Anxiety 300.00 ; Tremors of nervous system 781.0 and Tendonitis 726.90 [facility] [address] [facility] [id number] [address] [place] [phone] Jan, Anxiety 300.00 ; Tremors of nervous system 781.0 and Tendonitis 726.90 [facility] [address] [place] [id number] [address] [place] [phone] Jan, Sinusitis 473.9 [facility] [address] [place] [id number] [address] [place] [phone] December, [facility] [address] [id number] [address] [place] [address], [place] [address] December, [facility] [address] [id number] [address] [place] [address], [place] [address] December, [facility] [address] [id number] [address] [place] [address], [place] [address] December, [facility] [address] [id number] [address] [place] [address], [place] [address] December, [facility] [address] [id number] [address] [place] [address], [place] [address] Nov, [facility] [address] [id number] [address] [place] [address], [place] [address] Nov, [facility] [address] [id number] [address] [place] [address], [place] [address] Sep, [facility] [address] [id number] [address] [place] [address], [place] [address] Sep, [facility] [address] [id number] [address] [place] [address], [place] [address] Sep, [facility] [address] [id number] [address] [place] [address], [place] [address] Sep, [facility] [address] [id number] [address] [place] [address], [place] [address] Jul, [facility] [address] [id number] [address] [place] [address], [place] [address] Jul, [facility] [address] [id number] [address] [place] [address], [place] [address] Jul, [facility] [address] [id number] [address] [place] [address], [place] [address] Jul, [facility] [address] [id number] [address] [place] [address], [place] [address] Jul, [facility] [address] [id number] [address] [place] [address], [place] [address] Jul, [facility] [address] [id number] [address] [place] [address], [place] [address] Jul, [facility] [address] [id number] [address] [place] [address], [place] [address] Jul, [facility] [address] [id number] [address] [place] [address], [place] [address] Jul, [facility] [address] [id number] [address] [place] [address], [place] [address] Jul, [facility] [address] [id number] [address] [place] [address], [place] [address] Jun, [facility] [address] [id number] [address] [place] [address], [place] [address] Jun, [facility] [address] [id number] [address] [place] [address], [place] [address] Jun, [facility] [address] [id number] [address] [place] [address], [place] [address] Jun, [facility] [address] [id number] [address] [place] [address], [place] [address] May, [facility] [address] [id number] [address] [place] [address], [place] [address] May, [facility] [address] [id number] [address] [place] [address], [place] [address] May, [facility] [address] [id number] [address] [place] [address], [place] [address] 14 May, 2014 [facility] [address] [id number] [address] [place] [address], [place] [address] 17 Apr, 2014 [facility] [address] [id number] [address] [place] [address], [place] [address] 17 Apr, 2014 [facility] [address] [id number] [address] [place] [address], [place] [address] 17 Apr, 2014 [facility] [address] [id number] [facility] [address] 17 Apr, 2013 [facility] [address] [id number] [facility] [place] [address] 16 Apr, 2013 [facility] [address] [id number] [address] [place] [address], [place] [address] 16 Apr, 2013 [facility] [address] [id number] [address] [place] [address], [place] [address] Apr, 2013 [facility] [address] [id number] [address] [place] [address], [place] [address] Apr, 2013 [facility] [address] [id number] [address] [place] [address], [place] [address] Mar, [facility] [address] [id number] [address] [place] [address], [place] [address] Mar, [facility] [address] [id number] [address] [place] [address], [place] [address] Feb, [facility] [address] [id number] [address] [place] [address], [place] [address] Feb, [facility] [address] [id number] [address] [place] [address], [place] [address] Feb, [facility] [address] [id number] [address] [place] [address], [place] [address] Feb, [facility] [address] [id number] [address] [place] [address], [place] [address] Jan, [facility] [address] [id number] [address] [place] [address], [place] [address] Jan, [facility] [address] [id number] [address] [place] [address], [place] [address] Jan, [facility] [address] [id number] [address] [place] [address], [place] [address] Jan, [facility] [address] [id number] [address] [place] [address], [place] [address] Jan, [facility] [address] [id number] [facility] [place] [address] Jan, [facility] [address] [id number] [address] [place] [address], [place] [address] December, [facility] [address] [id number] [address] [place] [address], [place] [address] December, [facility] [address] [id number] [address] [place] [address], [place] [address] December, [facility] [address] [id number] [address] [place] [address], [place] [address] December, [facility] [address] [id number] [address] [place] [address], [place] [address] December, [facility] [address] [id number] [address] [place] [address], [place] [address] Nov, [facility] [address] [id number] [address] [place] [address], [place] [address] Nov, [facility] [address] [id number] [address] [place] [address], [place] [address] Nov, [facility] [address] [id number] [address] [place] [address], [place] [address] Nov, [facility] [address] [id number] [address] [place] [address], [place] [address] Nov, [facility] [address] [id number] [address] [place] [address], [place] [address] Nov, [facility] [address] [id number] [address] [place] [address], [place] [address] Oct, [facility] [address] [id number] [address] [place] [address], [place] [address] Oct, [facility] [address] [id number] [address] [place] [address], [place] [address] Oct, [facility] [address] [id number] [address] [place] [address], [place] [address] 07 Oct, 2013 [facility] [address] [id number] [address] [place] [address], [place] [address] 14 Sep, 2013 [facility] [address] [id number] [address] [place] [address], [place] [address] 14 Sep, 2013 [facility] [address] [id number] [address] [place] [address], [place] [address] 10 Sep, 2013 [facility] [address] [id number] [address] [place] [address], [place] [address] 10 Sep, 2013 [facility] [address] [id number] [address] [place] [address], [place] [address] 07 Sep, 2013 [facility] [address] [id number] [address] [place] [address], [place] [address] 06 Sep, 2013 [facility] [address] [id number] [address] [place] [address], [place] [address] Sep, 2013 [facility] [address] [id number] [address] [place] [address], [place] [address] 05 Sep, 2013 [facility] [address] [id number] [address] [place] [address], [place] [address] 05 Sep, 2013 [facility] [address] [id number] [address] [place] [address], [place] [address] Sep, 2013 [facility] [address] [id number] [address] [place] [address], [place] [address] Sep, 2013 [facility] [address] [id number] [address] [place] [address], [place] [address] Sep, [facility] [address] [id number] [address] [place] [address], [place] [address] Sep, 2013 [facility] [address] [id number] [address] [place] [address], [place] [address] 14 Aug, 2013 [facility] [address] [id number] [address] [place] [address], [place] [address] Aug, [facility] [address] [id number] [address] [place] [address], [place] [address] Jul, [facility] [address] [id number] [address] [place] [address], [place] [address] Jul, [facility] [address] [id number] [address] [place] [address], [place] [address] Jun, [facility] [address] [id number] [address] [place] [address], [place] [address] Jun, [facility] [address] [id number] [address] [place] [address], [place] [address] May, [facility] [address] [id number] [address] [place] [address], [place] [address] Apr, [facility] [address] [id number] [address] [place] [address], [place] [address] Mar, [facility] [address] [id number] [address] [place] [address], [place] [address] Jan, [facility] [address] [id number] [address] [place] [address], [place] [address] December, [facility] [address] [id number] [address] [place] [address], [place] [address] December, [facility] [address] [id number] [address] [place] [address], [place] [address] Oct, [facility] [address] [id number] [address] [place] [address], [place] [address] Oct, [facility] [address] [id number] [address] [place] [address], [place] [address] Sep, [facility] [address] [id number] [address] [place] [address], [place] [address] Aug, [facility] [address] [id number] [address] [place] [address], [place] [address] Aug, [facility] [address] [id number] [address] [place] [address], [place] [address] Jul, [facility] [address] [id number] [address] [place] [address], [place] [address] Jul, [facility] [address] [id number] [address] [place] [address], [place] [address] Mar, [facility] [address] [id number] [address] [place] [address], [place] [address] Mar, [facility] [address] [id number] [address] [place] [address], [place] [address] Feb, [facility] [address] [id number] [address] [place] [address], [place] [address] Feb, [facility] [address] [id number] [address] [place] [address], [place] [address] Feb, [facility] [address] [id number] [address] [place] [address], [place] [address] Jan, [facility] [address] [id number] [address] [place] [address], [place] [address] Nov, [facility] [address] [id number] [address] [place] [address], [place] [address] Sep, [facility] [address] [id number] [address] [place] [address], [place] [address] Sep, [facility] [address] [id number] [address] [place] [address], [place] [address] Sep, [facility] [address] [id number] [address] [place] [address], [place] [address] Aug, [facility] [address] [id number] [address] [place] [address], [place] [address] Aug, [facility] [address] [id number] [address] [place] [address], [place] [address] Aug, [facility] [address] [id number] [address] [place] [address], [place] [address] Jun, [facility] [address] [id number] [address] [place] [address] [id number] Jun, [facility] [address] [id number] [address] [place] [phone] Jun, [facility] [address] [id number] [address] [place] [phone] Jun, [facility] [address] [id number] [address] [place] [phone] May, [facility] [address] [id number] [address] [place] [phone] May, [facility] [address] [id number] [address] [place] [phone] May, [facility] [address] [id number] [address] [place] [phone] May, [facility] [address] [id number] [address] [place] [phone] Jun, [facility] [address] [id number] [address] [place] [phone] December, [facility] [address] [id number] [address] [place] [phone] May, IMMUNIZATIONS No Known Immunizations SOCIAL HISTORY Never Assessed REASON FOR VISIT Controlled Med Refill PLAN OF CARE VITAL SIGNS MEDICATIONS Medication Instructions Dosage Frequency Start Date End Date Duration S tatus Xanax 1 MG Orally Twice a day 1 tablet 12h December, 28 d ays Active Ewkxgnybgw-TFMI-Foxfwejs 50-325-40 MG Orally every 4 hrs prn [...]
--- OUTSIDE RECORDS SUMMARY | 2020-03-17 19:22 | XMS REPORT ---
Author Author [facility] Address Unknown Care Team Providers Care Director Commercial Sales Name Role Phone TRAM SOLIMAN Unavailable PROBLEMS Type Condition ICD9-CM Code XQT19-XK Code Onset Dates Condition S tatus SNOMED Code Problem Perimenopausal N95.1 Active 11497 [id number] Problem Seasonal allergic rhinitis, unspecified allergic rhinitis trigger J30.2 Active 175428310 Problem HTN (hypertension) 401.9 Active 3 9026625 Problem Vitamin D deficiency E55.9 Active 70656246 Problem Anxiety F41.9 Active 53114209 Problem Nocturnal dyspnea R06.00 Active 24 4682524 Problem Iron deficiency anemia, unspecified iron deficiency an emia type D50.9 Active 31483225 Problem Chronic migraine G43.709 Active 377 92500 Problem Daytime hypersomnia G47.19 Active 90579247555274 Problem Carpal tunnel syndrome, bilateral G56.03 Active [id number] ALLERGIES Substance Reaction Event Type Date Status Hydrocodone-Acetaminophen nausea and vomiting Drug Allergy May, Active ENCOUNTERS Encounter Location Date Diagnosis [place] [id number] [place] [address] Nov, Chronic migraine G43.709 ; S easonal allergic rhinitis, unspecified allergic rhinitis trigger J30.2 ; Vitamin D deficiency E55.9 ; Nocturnal dyspnea R06.00 ; Daytime hypersomnia G47.19 and Anxiety F41.9 [place] [address] [address] [facility] [id number] [address] [place] [address] Nov, Chronic migraine G43.709 [place] [address] [place] [id number] [address] [place] [address] Oct, [place] [place] [id number] [address] [place] [address] 27 Feb, 2018 Carpal tunnel syndrome, bila teral G56.03 [facility] [address] [facility] [id number] [address] [place] [address] Sep, Chronic migraine G43.709 [facility] [address] [facility] [id number] [address] [place] [address] Aug, [facility] [address] [facility] [id number] [address] [place] [address] Jul, Seasonal allergic rhinitis, unspecified allergic rhinitis trigger J30.2 [facility] [address] [facility] [id number] [address] [place] [address] Jul, Seasonal allergic rhinitis, unspecified allergic rhinitis trigger J30.2 [facility] [address] [facility] [id number] [address] [place] [address] Jul, Chronic migraine G43.709 [facility] [address] [place] [id number] [place] [phone] Jun, [facility] [address] [facility] [id number] [place] [address] [id number] May, Dental caries K02.9 [facility] [address] [place] [id number] [place] [address] May, Chronic migraine G43.709 [facility] [address] [facility] [id number] [address] [place] [address] Apr, Chronic migraine G43.709 ; I yvette deficiency anemia, unspecified iron deficiency anemia type D50.9 ; Perimenopausal N95.1 and Vitamin D deficiency E55.9 [facility] [address] [facility] [id number] [address] [place] [address] Mar, [facility] [address] [facility] [id number] [address] [place] [address] Mar, Seasonal allergic rhinitis, unspecified allergic rhinitis trigger J30.2 [facility] [address] [facility] [id number] [address] [place] [address] Mar, Chronic migraine G43.709 [facility] [address] [facility] [id number] [address] [place] [address] Mar, [place] [address] [address] Mar, Chronic migraine G43.709 ; I rregular menses N92.6 ; Iron deficiency anemia, unspecified iron deficiency anemia type D50.9 and General medical exam Z00.00 [place] [address] [place] [id number] [place] [address] Mar, Chronic migraine G43.709 ; I yvette deficiency anemia, unspecified iron deficiency anemia type D50.9 ; Irregular menses N92.6 and General medical exam Z00.00 [facility] [address] [id number] [address] [place] [address] [id number] Feb, Dental examination Z01.20 [place] [address] [address] Feb, Chronic tension-type headach e, 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 and Seasonal allergic rhinitis, unspecified allergic rhinitis trigger J30.2 [place] [address] [address] Feb, [place] [address] [place] [id number] [place] [address] Jan, Seasonal allergic rhinitis, unspecified allergic rhinitis trigger J30.2 [place] [address] [place] [id number] [address] [place] [address] December, Chronic tension-type headach e, 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 [facility] [address] [id number] [address] [place] [id number] December, Dental examination Z01.20 [place] [address] [facility] [id number] [address] [place] [address] December, [place] [address] [place] [id number] [address] [place] [address] Oct, [facility] [address] [facility] [id number] [address] [place] [address] Oct, [facility] [address] [place] [id number] [place] [address] Oct, Sore throat J02.9 and Season al allergic rhinitis, unspecified allergic rhinitis trigger J30.2 [facility] [address] [address] Oct, [facility] [address] [place] [id number] [place] [address] Sep, [facility] [address] [place] [id number] [place] [address] Aug, Menstrual periods irregular N92.6 ; Chronic tension-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, 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 ; Acute upper respiratory infection, unspecified J06.9 and Other viral agents as the cause of diseases classified elsewhere B97.89 [facility] [address] [place] [id number] [address] [place] [address] Jul, [facility] [address] [place] [id number] [place] [address] Jul, [facility] [address] [address] Jul, Migraine without aura and wi thout status migrainosus, not intractable G43.009 [facility] [address] [place] [id number] [address] [place] [address] Jun, [facility] [address] [place] [id number] [address] [place] [address] May, Migraine without aura and wi thout status migrainosus, not intractable G43.009 [facility] [address] [place] [id number] [address] [place] [phone] May, [facility] [address] [place] [id number] [address] [place] [address] May, [place] [id number] [place] [id number] [address] [place] [address] [id number] Mar, Dental examination Z01.20 [facility] [address] [id number] [address] [place] [address] Mar, [facility] [address] [id number] [address] [place] [address] Jan, Onychomycosis B35.1 [facility] [address] [id number] [address] [place] [address] Jan, [facility] [address] [id number] [address] [place] [address] December, Dental caries K02.9 [facility] [address] [id number] [address] [place] [address] Nov, Dental examination Z01.20 [facility] [address] [id number] [address] [place] [address] Oct, Dental examination Z01.20 [facility] [address] [id number] [address] [place] [address] Oct, [facility] [address] [id number] [address] [place] [address] Oct, Migraine G43.909 [facility] [address] [id number] [address] [place] [address] Sep, Onychomycosis B35.1 [facility] [address] [id number] [address] [place] [address] Sep, [facility] [address] [id number] [address] [place] [address] Aug, [facility] [address] [id number] [address] [place] [id number] Jul, [facility] [address] [id number] [address] [place] [address] Apr, [facility] [address] [address] Apr, Right anterior knee pain 719 .46 [facility] [address] [place] [id number] [place] [address] Mar, Tendonitis 726.90 ; HTN (hyp ertension) 401.9 ; Tremors of nervous system 781.0 and Anxiety 300.00 [facility] [address] [address] Mar, Thrush 112.0 [facility] [address] [place] [id number] [place] [address] Feb, [facility] [address] [address] Feb, Tremors of nervous system 78 1.0 and Carpal tunnel syndrome 354.0 [facility] [address] [address] Jan, Anxiety 300.00 ; Tremors of nervous system 781.0 and Tendonitis 726.90 [facility] [address] [place] [id number] [place] [address] Jan, Anxiety 300.00 ; Tremors of nervous system 781.0 and Tendonitis 726.90 [facility] [address] [address] Jan, Sinusitis 473.9 [facility] [address] [place] [id number] [address] [place] [phone] December, [facility] [address] [place] [id number] [address] [place] [phone] December, [facility] [address] [place] [id number] [place] [address] December, [facility] [address] [place] [id number] [place] [address] December, [facility] [address] [place] [id number] [place] [address] December, [facility] [address] [id number] [address] [place] [address], [place] [address] Nov, [facility] [address] [id number] [address] [place] [address], [place] [address] Nov, [facility] [address] [id number] [address] [place] [address], [place] [address] Sep, 2014 [facility] [address] [id number] [address] [place] [address], [place] [address] Sep, 2014 [facility] [address] [id number] [address] [place] [address], [place] [address] Sep, 2014 [facility] [address] [id number] [address] [place] [address], [place] [address] Sep, 2014 [facility] [address] [id number] [address] [place] [address], [place] [address] Jul, [facility] [address] [id number] [address] [place] [address], [place] [address] Jul, [facility] [address] [id number] [address] [place] [address], [place] [address] Jul, [facility] [address] [id number] [address] [place] [address], [place] [address] Jul, [facility] [address] [id number] [address] [place] [address], [place] [address] Jul, [facility] [address] [id number] [address] [place] [address], [place] [address] Jul, [facility] [address] [id number] [address] [place] [address], [place] [address] Jul, [facility] [address] [id number] [address] [place] [address], [place] [address] Jul, [facility] [address] [id number] [address] [place] [address], [place] [address] Jul, [facility] [address] [id number] [address] [place] [address], [place] [address] Jul, [facility] [address] [id number] [address] [place] [address], [place] [address] Jun, [facility] [address] [id number] [address] [place] [address], [place] [address] Jun, [facility] [address] [id number] [address] [place] [address], [place] [address] Jun, [facility] [address] [id number] [address] [place] [address], [place] [address] Jun, [facility] [address] [id number] [address] [place] [address], [place] [address] May, [facility] [address] [id number] [address] [place] [address], [place] [address] May, [facility] [address] [id number] [address] [place] [address], [place] [address] May, [facility] [address] [id number] [address] [place] [address], [place] [address] 14 May, 2014 [facility] [address] [id number] [address] [place] [address], [place] [address] 17 Apr, 2014 [facility] [address] [id number] [address] [place] [address], [place] [address] 17 Apr, 2014 [facility] [address] [id number] [address] [place] [address], [place] [address] 17 Sep, 2013 [facility] [address] [id number] [address] [place] [address], [place] [address] 17 Sep, 2013 [facility] [address] [id number] [address] [place] [address], [place] [address] 16 Sep, 2013 [facility] [address] [id number] [address] [place] [address], [place] [address] 16 Sep, 2013 [facility] [address] [id number] [address] [place] [address], [place] [address] Apr, [facility] [address] [id number] [facility] [place] [address] Apr, [facility] [address] [id number] [address] [place] [address], [place] [address] Mar, [facility] [address] [id number] [address] [place] [address], [place] [address] Mar, [facility] [address] [id number] [address] [place] [address], [place] [address] Feb, [facility] [address] [id number] [address] [place] [address], [place] [address] Feb, [facility] [address] [id number] [address] [place] [address], [place] [address] Feb, [facility] [address] [id number] [address] [place] [address], [place] [address] Feb, [facility] [address] [id number] [address] [place] [address], [place] [address] Jan, [facility] [address] [id number] [address] [place] [address], [place] [address] Jan, [facility] [address] [id number] [address] [place] [address], [place] [address] Jan, [facility] [address] [id number] [address] [place] [address], [place] [address] Jan, [facility] [address] [id number] [address] [place] [address], [place] [address] Jan, [facility] [address] [id number] [address] [place] [address], [place] [address] Jan, [facility] [address] [id number] [address] [place] [address], [place] [address] December, [facility] [address] [id number] [address] [place] [address], [place] [address] December, [facility] [address] [id number] [address] [place] [address], [place] [address] December, [facility] [address] [id number] [address] [place] [address], [place] [address] December, [facility] [address] [id number] [address] [place] [address], [place] [address] December, [facility] [address] [id number] [address] [place] [address], [place] [address] Nov, [facility] [address] [id number] [address] [place] [address], [place] [address] Nov, [facility] [address] [id number] [address] [place] [address], [place] [address] Nov, [facility] [address] [id number] [address] [place] [address], [place] [address] Nov, [facility] [address] [id number] [address] [place] [address], [place] [address] Nov, [facility] [address] [id number] [address] [place] [address], [place] [address] Nov, [facility] [address] [id number] [address] [place] [address], [place] [address] Oct, [facility] [address] [id number] [address] [place] [address], [place] [address] Oct, [facility] [address] [id number] [address] [place] [address], [place] [address] Oct, [facility] [address] [id number] [address] [place] [address], [place] [address] Oct, [facility] [address] [id number] [address] [place] [address], [place] [address] Sep, [facility] [address] [id number] [address] [place] [address], [place] [address] Sep, [facility] [address] [id number] [address] [place] [address], [place] [address] Sep, [facility] [address] [id number] [address] [place] [address], [place] [address] Sep, 2013 [facility] [address] [id number] [address] [place] [address], [place] [address] Sep, 2013 [facility] [address] [id number] [address] [place] [address], [place] [address] Sep, 2013 [facility] [address] [id number] [address] [place] [address], [place] [address] Sep, 2013 [facility] [address] [id number] [address] [place] [address], [place] [address] Sep, 2013 [facility] [address] [id number] [address] [place] [address], [place] [address] Sep, 2013 [facility] [address] [id number] [address] [place] [address], [place] [address] Sep, 2013 [facility] [address] [id number] [address] [place] [address], [place] [address] Sep, 2013 [facility] [address] [id number] [address] [place] [address], [place] [address] Sep, [facility] [address] [id number] [address] [place] [address], [place] [address] Sep, [facility] [address] [id number] [address] [place] [address], [place] [address] Aug, [facility] [address] [id number] [address] [place] [address], [place] [address] Aug, [facility] [address] [id number] [address] [place] [address], [place] [address] Jul, [facility] [address] [id number] [address] [place] [address], [place] [address] Jul, [facility] [address] [id number] [address] [place] [address], [place] [address] Jun, [facility] [address] [id number] [address] [place] [address], [place] [address] Jun, [facility] [address] [id number] [address] [place] [address], [place] [address] May, [facility] [address] [id number] [address] [place] [address], [place] [address] Apr, [facility] [address] [id number] [address] [place] [address], [place] [address] Mar, [facility] [address] [id number] [address] [place] [address], [place] [address] Jan, [facility] [address] [id number] [address] [place] [address], [place] [address] December, [facility] [address] [id number] [address] [place] [address], [place] [address] December, [facility] [address] [id number] [address] [place] [address], [place] [address] Oct, [facility] [address] [id number] [address] [place] [address], [place] [address] Oct, [facility] [address] [id number] [address] [place] [address], [place] [address] Sep, [facility] [address] [id number] [address] [place] [address], [place] [address] Aug, [facility] [address] [id number] [address] [place] [address], [place] [address] Aug, [facility] [address] [id number] [address] [place] [address], [place] [address] Jul, [facility] [address] [id number] [address] [place] [address], [place] [address] Jul, [facility] [address] [id number] [address] [place] [address], [place] [address] Mar, [facility] [address] [id number] [address] [place] [address], [place] [address] Mar, [facility] [address] [id number] [address] [place] [address], [place] [id number] Feb, [facility] [address] [id number] [address] [place] [address], [place] [address] Feb, [facility] [address] [id number] [address] [place] [address], [place] [address] Feb, [facility] [address] [id number] [address] [place] [address], [place] [address] Jan, [facility] [address] [id number] [address] [place] [address], [place] [address] Nov, [facility] [address] [id number] [address] [place] [address], [place] [address] Sep, [facility] [address] [id number] [address] [place] [address], [place] [address] Sep, [facility] [address] [id number] [address] [place] [address], [place] [address] Sep, [facility] [address] [id number] [address] [place] [address], [place] [address] Aug, [facility] [address] [id number] [address] [place] [address], [place] [address] Aug, [facility] [address] [id number] [address] [place] [address], [place] [address] Aug, [facility] [address] [id number] [address] [place] [place] [id number], [place] [id number] Jun, [facility] [address] [id number] [address] [place] [address], [place] [id number] Jun, [facility] [address] [id number] [address] [place] [address], [place] [id number] Jun, [facility] [address] [id number] [address] [place] [address], [place] [id number] Jun, [facility] [address] [id number] [address] [place] [id number] May, [facility] [address] [id number] [address] [place] [id number] May, [facility] [address] [id number] [address] [place] [id number] May, [facility] [address] [id number] [address] [place] [id number] May, [facility] [address] [id number] [address] [place] [id number] Jun, [facility] [address] [facility] [id number] [address] [place] [id number] December, [facility] [address] [facility] [id number] [address] [place] [id number] May, IMMUNIZATIONS No Known Immunizations SOCIAL HISTORY Never Assessed REASON FOR VISIT TE PLAN OF CARE Activity Details Follow Up prn Reason:hygiene and joselyn o r TE #32 VITAL SIGNS Height 64 in 2017-06-03 Blood pressure systolic 156 mmHg 2017-06-03 Blood pressure diastolic 88 mmHg 2017-06-03 MEDICATIONS Medication Instructions Dosage Frequency Start Date End Date Duration S tatus SudoGest 60 mg Orally every 6 hrs 1 tablet as needed 6h Active Proventil HFA 108 (90 Base) MCG/ACT INHA LE TWO PUFFS BY MOUTH EVERY 6 HOURS NEEDED FOR SHORTNESS OF BREATH/COUGH 25 Active Neurontin 100 MG Orally Three times a day 1 capsule 8h Active Zyrtec Allergy Active Cqitkcodyo-KFHP-Ungyfmxk 50-325-40 MG Orally every 4 hrs 1 tablet a s needed 4h Active Flonase 50 mcg/actuation Nasally 1spray(s) intranasally once a day take 1 sprays by Nasal route 1 time per day in each nostril Sep, 30 days Active Xanax 1 MG Orally Twice a day 1 tablet 12h December, 28 d ays Active Propranolol HCl 60 MG Orally Twice a day 1 tablet 12h Active Topamax 25 MG Orally 2 times a day 1 tablet 12h Active Ferrous Sulfate 325 mg (65 mg iron) 1 Ta blet by Oral route 2 times per day give with food Apr, Active Promethazine HCl 25 MG Orally with severe migraine 1 tablet as needed Active Vitamin D (Ergocalciferol) 35357 UNIT Orally once weekly 1 capsule Mar, Jun, Active RESULTS No Results PROCEDURES Procedure Date Ordered Result Body Site SURG REMOVAL ERUPTED TOOTH Jun 03, 2017 [facility] Employee/Board adjustment Jun 03, 2017 Billing Notes on claim Jun 03, 2017 INSTRUCTIONS MEDICATIONS ADMINISTERED No Known Medications [...]
--- OUTSIDE RECORDS SUMMARY | 2020-03-17 19:22 | XMS REPORT ---
Author Author Ann MCHUGH Organization [facility], [place] Address [address] [place] [address] Care Team Providers Care Pulmonologist Intensivist Name Role Phone RAFALEA MCHUGH Unavailable PROBLEMS Type Condition ICD9-CM Code WYP85-FU Code Onset Dates Condition S tatus SNOMED Code Problem Perimenopausal N95.1 Active 43246 [id number] Problem Seasonal allergic rhinitis, unspecified allergic rhinitis trigger J30.2 Active 209010902 Problem Chronic migraine G43.709 Active 377 39968 Problem Anxiety F41.9 Active 07600839 Problem Vitamin D deficiency E55.9 Active 53061474 Problem Essential hypertension I10 Active 30586504 Problem Iron deficiency anemia, unspecified iron deficiency an emia type D50.9 Active 49431034 Problem Carpal tunnel syndrome, bilateral G56.03 Active [id number] Problem Daytime hypersomnia G47.19 Active 14448850143415 Problem Nocturnal dyspnea R06.00 Active 24 5827289 ALLERGIES No Information ENCOUNTERS Encounter Location Date Diagnosis [place] [address] [place] [id number] [address] [place] [address] Apr, Chronic migraine G43.709 ; E ssential hypertension I10 ; Iron deficiency anemia, unspecified iron deficiency anemia type D50.9 and Long-term use of high-risk medication Z79.899 [place] [address] [facility] [id number] [address] [place] [address] Feb, Seasonal allergic rhinitis, unspecified allergic rhinitis trigger J30.2 and Chronic migraine G43.709 [place] [address] [facility] [id number] [address] [place] [address] Feb, Anxiety F41.9 [facility] [place] [address] [place] [id number] [address] [place] [address] Feb, Exposure to pertussis Z20.81 8 [place] [address] [place] [id number] [address] [place] [address] Jan, [place] [address] [address] Jan, Chronic migraine G43.709 and Anxiety F41.9 [place] [address] [address] December, Anxiety F41.9 [place] [address] [place] [id number] [place] [address] Nov, Chronic migraine G43.709 ; S easonal allergic rhinitis, unspecified allergic rhinitis trigger J30.2 ; Vitamin D deficiency E55.9 ; Nocturnal dyspnea R06.00 ; Daytime hypersomnia G47.19 and Anxiety F41.9 [place] [id number] [place] [address] Nov, Chronic migraine G43.709 [place] [address] [place] [id number] [address] [place] [address] Oct, [place] [address] [address] Sep, Carpal tunnel syndrome, bila teral G56.03 [place] [address] [place] [id number] [address] [place] [address] Sep, Chronic migraine G43.709 [place] [address] [place] [id number] [address] [place] [address] Aug, [place] [address] [place] [id number] [address] [place] [address] Jul, Seasonal allergic rhinitis, unspecified allergic rhinitis trigger J30.2 [place] [address] [place] [id number] [address] [place] [address] Jul, Seasonal allergic rhinitis, unspecified allergic rhinitis trigger J30.2 [place] [address] [place] [id number] [address] [place] [address] Jul, Chronic migraine G43.709 [facility] [place] [address] [facility] [id number] [address] [place] [address] Jun, [facility] [address] [id number] [address] [place] [id number] May, Dental caries K02.9 [facility] [place] [address] [facility] [id number] [address] [place] [address] May, Chronic migraine G43.709 [facility] [place] [address] [facility] [id number] [address] [place] [address] Apr, Chronic migraine G43.709 ; I yvette deficiency anemia, unspecified iron deficiency anemia type D50.9 ; Perimenopausal N95.1 and Vitamin D deficiency E55.9 [place] [address] [facility] [id number] [address] [place] [address] Mar, [place] [address] [place] [id number] [address] [place] [address] Mar, Seasonal allergic rhinitis, unspecified allergic rhinitis trigger J30.2 [facility] [place] [address] [facility] [id number] [address] [place] [address] Mar, Chronic migraine G43.709 [facility] [place] [address] [facility] [id number] [address] [place] [address] Mar, [facility] [place] [address] [facility] [id number] [address] [place] [address] Mar, Chronic migraine G43.709 ; I rregular menses N92.6 ; Iron deficiency anemia, unspecified iron deficiency anemia type D50.9 and General medical exam Z00.00 [facility] [place] [address] [facility] [id number] [address] [place] [address] Mar, Chronic migraine G43.709 ; I yvette deficiency anemia, unspecified iron deficiency anemia type D50.9 ; Irregular menses N92.6 and General medical exam Z00.00 [facility] [address] [place] [id number] [address] [place] [id number] Feb, Dental examination Z01.20 [facility] [place] [address] [id number] [address] [place] [address] Feb, Chronic tension-type headach e, 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 and Seasonal allergic rhinitis, unspecified allergic rhinitis trigger J30.2 [facility] [place] [address] [id number] [address] [place] [address] Feb, [facility] [place] [address] [id number] [address] [place] [address] Jan, Seasonal allergic rhinitis, unspecified allergic rhinitis trigger J30.2 [facility] [place] [address] [facility] [id number] [address] [place] [address] December, Chronic tension-type headach e, 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 [facility] [address] [id number] [address] [place] [id number] December, Dental examination Z01.20 [facility] [place] [address] [id number] [address] [place] [address] December, [facility] [place] [address] [facility] [id number] [address] [place] [address] Oct, [facility] [place] [address] [id number] [address] [place] [address] Oct, [facility] [address] [facility] [id number] [address] [place] [address] Oct, Sore throat J02.9 and Season al allergic rhinitis, unspecified allergic rhinitis trigger J30.2 [facility] [place] [address] [id number] [address] [place] [phone] Oct, [facility] [place] [address] [facility] [id number] [address] [place] [id number] Sep, [facility] [place] [address] [facility] [id number] [address] [place] [address] Aug, Menstrual periods irregular N92.6 ; Chronic tension-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, 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 ; Acute upper respiratory infection, unspecified J06.9 and Other viral agents as the cause of diseases classified elsewhere B97.89 [facility] [place] [address] [id number] [address] [place] [id number] Jul, [facility] [place] [address] [id number] [address] [place] [id number] Jul, [facility] [place] [address] [id number] [address] [place] [address] Jul, Migraine without aura and wi thout status migrainosus, not intractable G43.009 [facility] [place] [address] [id number] [address] [place] [phone] Jun, [facility] [place] [address] [facility] [id number] [address] [place] [phone] May, Migraine without aura and wi thout status migrainosus, not intractable G43.009 [facility] [place] [address] [id number] [address] [place] [address] May, [facility] [place] [address] [id number] [address] [place] [id number] May, [facility] [address] [id number] [address] [place] [address] [id number] Mar, Dental examination Z01.20 [facility] [place] [address] [id number] [address] [place] [id number] Mar, [facility] [place] [address] [facility] [id number] [address] [place] [address] Jan, Onychomycosis B35.1 [facility] [place] [address] [id number] [address] [place] [id number] Jan, [facility] [place] [address] [facility] [id number] [address] [place] [address] December, Dental caries K02.9 [facility] [place] [address] [id number] [address] [place] [id number] Nov, Dental examination Z01.20 [facility] [place] [address] [id number] [address] [place] [id number] Oct, Dental examination Z01.20 [facility] [place] [address] [id number] [address] [place] [id number] Oct, [facility] [place] [address] [id number] [address] [place] [address] Oct, Migraine G43.909 [facility] [place] [address] [id number] [address] [place] [address] Sep, Onychomycosis B35.1 [facility] [place] [address] [id number] [address] [place] [id number] Sep, [facility] [place] [address] [facility] [id number] [address] [place] [phone] Aug, [facility] [place] [address] [facility] [id number] [address] [place] [id number] Jul, [facility] [place] [address] [id number] [address] [place] [phone] Apr, [facility] [place] [address] [facility] [id number] [address] [place] [address] Apr, Right anterior knee pain 719 .46 [facility] [place] [address] [facility] [id number] [address] [place] [id number] Mar, Tendonitis 726.90 ; HTN (hyp ertension) 401.9 ; Tremors of nervous system 781.0 and Anxiety 300.00 [facility] [place] [address] [id number] [address] [place] [phone] Mar, Thrush 112.0 [facility] [place] [address] [facility] [id number] [address] [place] [id number] Feb, [facility] [place] [address] [facility] [id number] [address] [place] [phone] Feb, Tremors of nervous system 78 1.0 and Carpal tunnel syndrome 354.0 [facility] [place] [address] [id number] [address] [place] [id number] Jan, Anxiety 300.00 ; Tremors of nervous system 781.0 and Tendonitis 726.90 [facility] [place] [address] [id number] [address] [place] [address] Jan, Anxiety 300.00 ; Tremors of nervous system 781.0 and Tendonitis 726.90 [facility] [place] [address] [id number] [address] [place] [phone] Jan, Sinusitis 473.9 [facility] [place] [address] [id number] [address] [place] [phone] December, [facility] [place] [address] [id number] [address] [place] [phone] December, [facility] [place] [address] [id number] [address] [place] [id number] December, [facility] [place] [address] [id number] [address] [place] [id number] December, [facility] [place] [address] [id number] [address] [place] [id number] December, [facility] [place] [address] [facility] [id number] [address] [place] [phone] Nov, [facility] [place] [address] [id number] [address] [place] [id number] Nov, [facility] [place] [address] [id number] [address] [place] [phone] Sep, [facility] [place] [address] [id number] [address] [place] [phone] Sep, [facility] [place] [address] [id number] [address] [place] [phone] Sep, [facility] [place] [address] [id number] [address] [place] [phone] Sep, [facility] [address] [id number] [address] [place] [address], [place] [address] Jul, [facility] [address] [id number] [address] [place] [address], [place] [address] Jul, [facility] [address] [id number] [address] [place] [address], [place] [address] Jul, [facility] [address] [id number] [address] [place] [address], [place] [address] Jul, [facility] [address] [id number] [address] [place] [address], [place] [address] Jul, [facility] [address] [id number] [address] [place] [address], [place] [address] Jul, [facility] [address] [id number] [address] [place] [address], [place] [address] Jul, [facility] [address] [id number] [address] [place] [address], [place] [address] Jul, [facility] [address] [id number] [address] [place] [address], [place] [address] Jul, [facility] [address] [id number] [address] [place] [address], [place] [address] Jul, [facility] [address] [id number] [address] [place] [address], [place] [address] Jun, [facility] [address] [id number] [address] [place] [address], [place] [address] Jun, [facility] [address] [id number] [address] [place] [address], [place] [address] Jun, [facility] [address] [id number] [address] [place] [address], [place] [address] Jun, [facility] [address] [id number] [address] [place] [address], [place] [address] May, [facility] [address] [id number] [address] [place] [address], [place] [address] 28 May, 2014 [facility] [address] [id number] [address] [place] [address], [place] [address] 14 May, 2014 [facility] [address] [id number] [address] [place] [address], [place] [address] 14 May, 2014 [facility] [address] [id number] [address] [place] [address], [place] [address] 17 Apr, 2013 [facility] [address] [id number] [address] [place] [address], [place] [address] 17 Apr, 2013 [facility] [address] [id number] [address] [place] [address], [place] [address] 17 Apr, 2013 [facility] [address] [id number] [address] [place] [address], [place] [address] 17 Apr, 2013 [facility] [address] [id number] [address] [place] [address], [place] [address] 16 Apr, 2013 [facility] [address] [id number] [address] [place] [address], [place] [address] 16 Apr, 2013 [facility] [address] [id number] [address] [place] [address], [place] [address] 03 Apr, 2014 [facility] [address] [id number] [address] [place] [address], [place] [address] 03 Apr, 2014 [facility] [address] [id number] [address] [place] [address], [place] [address] Mar, [facility] [address] [id number] [address] [place] [address], [place] [address] Mar, [facility] [address] [id number] [address] [place] [address], [place] [address] Feb, [facility] [address] [id number] [address] [place] [address], [place] [address] Feb, [facility] [address] [id number] [address] [place] [address], [place] [address] Feb, [facility] [address] [id number] [facility] [place] [address] Feb, [facility] [address] [id number] [facility] [place] [address] Jan, [facility] [address] [id number] [address] [place] [address], [place] [address] Jan, [facility] [address] [id number] [address] [place] [address], [place] [address] Jan, [facility] [address] [id number] [address] [place] [address], [place] [address] Jan, [facility] [address] [id number] [address] [place] [address], [place] [address] Jan, [facility] [address] [id number] [address] [place] [address], [place] [address] Jan, [facility] [address] [id number] [address] [place] [address], [place] [address] December, [facility] [address] [id number] [address] [place] [address], [place] [address] December, [facility] [address] [id number] [address] [place] [address], [place] [address] December, [facility] [address] [id number] [address] [place] [address], [place] [address] December, [facility] [address] [id number] [address] [place] [address], [place] [address] December, [facility] [address] [id number] [address] [place] [address], [place] [address] Nov, [facility] [address] [id number] [address] [place] [address], [place] [address] Nov, [facility] [address] [id number] [address] [place] [address], [place] [address] Nov, [facility] [address] [id number] [address] [place] [address], [place] [address] 23 Nov, 2013 [facility] [address] [id number] [address] [place] [address], [place] [address] Nov, [facility] [address] [id number] [address] [place] [address], [place] [address] Nov, [facility] [address] [id number] [address] [place] [address], [place] [address] Oct, [facility] [address] [id number] [address] [place] [address], [place] [address] Oct, [facility] [address] [id number] [address] [place] [address], [place] [address] Oct, [facility] [address] [id number] [address] [place] [address], [place] [address] Oct, [facility] [address] [id number] [address] [place] [address], [place] [address] 14 Sep, 2013 [facility] [address] [id number] [address] [place] [address], [place] [address] 14 Sep, 2013 [facility] [address] [id number] [address] [place] [address], [place] [address] 10 Sep, 2013 [facility] [address] [id number] [address] [place] [address], [place] [address] 10 Sep, 2013 [facility] [address] [id number] [address] [place] [address], [place] [address] 07 Sep, 2013 [facility] [address] [id number] [address] [place] [address], [place] [address] 06 Sep, 2013 [facility] [address] [id number] [address] [place] [address], [place] [address] 06 Sep, 2013 [facility] [address] [id number] [address] [place] [address], [place] [address] 05 Sep, 2013 [facility] [address] [id number] [address] [place] [address], [place] [address] Sep, [facility] [address] [id number] [address] [place] [address], [place] [address] Sep, [facility] [address] [id number] [address] [place] [address], [place] [address] Sep, [facility] [address] [id number] [address] [place] [address], [place] [address] Sep, [facility] [address] [id number] [address] [place] [address], [place] [address] Sep, [facility] [address] [id number] [address] [place] [address], [place] [address] Aug, [facility] [address] [id number] [address] [place] [address], [place] [address] Aug, [facility] [address] [id number] [address] [place] [address], [place] [address] Jul, [facility] [address] [id number] [address] [place] [address], [place] [address] Jul, [facility] [address] [id number] [address] [place] [address], [place] [address] Jun, [facility] [address] [id number] [address] [place] [address], [place] [address] Jun, [facility] [address] [id number] [address] [place] [address], [place] [address] May, [facility] [address] [id number] [address] [place] [address], [place] [address] Apr, [facility] [address] [id number] [address] [place] [address], [place] [id number] Mar, [facility] [address] [id number] [address] [place] [address], [place] [address] Jan, [facility] [address] [id number] [address] [place] [address], [place] [address] December, [facility] [address] [id number] [address] [place] [address], [place] [address] December, [facility] [address] [id number] [address] [place] [address], [place] [address] Oct, [facility] [address] [id number] [address] [place] [address], [place] [id number] Oct, [facility] [address] [id number] [address] [place] [address], [place] [address] Sep, [facility] [address] [id number] [address] [place] [address], [place] [address] Aug, [facility] [address] [id number] [address] [place] [address], [place] [address] Aug, [facility] [address] [id number] [address] [place] [address], [place] [address] Jul, [facility] [address] [id number] [address] [place] [address], [place] [address] Jul, [facility] [address] [id number] [address] [place] [address], [place] [address] Mar, [facility] [address] [id number] [address] [place] [address], [place] [address] Mar, [facility] [address] [id number] [address] [place] [address], [place] [address] Feb, [facility] [address] [id number] [address] [place] [address], [place] [address] Feb, [facility] [address] [id number] [address] [place] [address], [place] [address] Feb, [facility] [address] [id number] [address] [place] [address], [place] [address] Jan, [facility] [address] [id number] [address] [place] [address], [place] [address] Nov, [facility] [address] [id number] [address] [place] [address], [place] [id number] 17 Sep, 2011 [facility] [address] [id number] [address] [place] [address], [place] [address] 15 Sep, 2011 [facility] [address] [id number] [address] [place] [address], [place] [id number] Sep, [facility] [address] [id number] [address] [place] [address], [place] [address] Aug, [facility] [address] [id number] [address] [place] [address], [place] [id number] Aug, [facility] [address] [id number] [address] [place] [address], [place] [address] Aug, [facility] [address] [id number] [address] [place] [address], [place] [id number] Jun, [facility] [address] [id number] [address] [place] [address], [place] [id number] Jun, [facility] [address] [id number] [address] [place] [address], [place] [id number] Jun, [facility] [address] [id number] [address] [place] [address], [place] [address] Jun, [facility] [address] [id number] [address] [place] [address], [place] [address] May, [facility] [address] [id number] [address] [place] [address], [place] [address] May, [facility] [address] [id number] [address] [place] [id number] May, [facility] [address] [id number] [address] [place] [address], [place] [address] May, [facility] [address] [id number] [address] [place] [address], [place] [address] Jun, [facility] [address] [id number] [address] [place] [address], [place] [address] December, [facility] [address] [id number] [facility] [place] [address] 29 May, 2009 IMMUNIZATIONS No Known Immunizations [...]
--- OUTSIDE RECORDS SUMMARY | 2020-03-17 19:22 | XMS REPORT ---
Author Author Ann MCHUGH Organization [facility] Address [address] [place] [address] Care Team Providers Care Technology Methodology Consultant Name Role Phone RAFAELA MCHUGH Unavailable PROBLEMS Type Condition ICD9-CM Code HSO54-UW Code Onset Dates Condition S tatus SNOMED Code Problem Perimenopausal N95.1 Active 19915 [id number] Problem HTN (hypertension) 401.9 Active 3 7571340 Problem Vitamin D deficiency E55.9 Active 55278282 Problem Carpal tunnel syndrome, bilateral G56.03 Active 23127699423254247 Problem Chronic migraine G43.709 Active 377 37370 Problem Chronic tension-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, 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 Active 130385645 Problem Migraine without aura and without status migrain osus, not intractable G43.009 Active 976286185 Problem Iron deficiency anemia, unspecified iron deficiency an emia type D50.9 Active 24684923 Problem Seasonal allergic rhinitis, unspecified allergic rhinitis trigger J30.2 Active [id number] ALLERGIES No Information ENCOUNTERS Encounter Location Date Diagnosis [facility] [address] [id number] [address] [place] [id number] Nov, [facility] [address] [id number] [address] [place] [address] [id number] Nov, [facility] [address] [id number] [address] [place] [phone] Oct, [facility] [address] [address] Sep, Carpal tunnel syndrome, bila teral G56.03 [facility] [address] [id number] [address] [place] [id number] Sep, Chronic migraine G43.709 [facility] [address] [place] [address] Aug, [facility] [address] [facility] [id number] [address] [place] [id number] Jul, Seasonal allergic rhinitis, unspecified allergic rhinitis trigger J30.2 [facility] [address] [facility] [id number] [address] [place] [phone] Jul, Seasonal allergic rhinitis, unspecified allergic rhinitis trigger J30.2 [facility] [address] [facility] [id number] [address] [place] [phone] Jul, Chronic migraine G43.709 [facility] [address] [facility] [id number] [address] [place] [id number] Jun, [facility] [address] [facility] [id number] [address] [place] [address] [id number] May, Dental caries K02.9 [facility] [address] [facility] [id number] [address] [place] [phone] May, Chronic migraine G43.709 [facility] [address] [facility] [id number] [address] [place] [phone] Apr, Chronic migraine G43.709 ; I yvette deficiency anemia, unspecified iron deficiency anemia type D50.9 ; Perimenopausal N95.1 and Vitamin D deficiency E55.9 [facility] [address] [facility] [id number] [address] [place] [phone] Mar, [facility] [address] [facility] [id number] [address] [place] [phone] Mar, Seasonal allergic rhinitis, unspecified allergic rhinitis trigger J30.2 [facility] [address] [facility] [id number] [address] [place] [id number] Mar, Chronic migraine G43.709 [facility] [address] [facility] [id number] [address] [place] [id number] Mar, [facility] [address] [facility] [id number] [address] [place] [address] Mar, Chronic migraine G43.709 ; I rregular menses N92.6 ; Iron deficiency anemia, unspecified iron deficiency anemia type D50.9 and General medical exam Z00.00 [facility] [address] [facility] [id number] [address] [place] [id number] Mar, Chronic migraine G43.709 ; I yvette deficiency anemia, unspecified iron deficiency anemia type D50.9 ; Irregular menses N92.6 and General medical exam Z00.00 [facility] [address] [facility] [id number] [place] [address] [id number] Feb, Dental examination Z01.20 [facility] [address] [facility] [id number] [place] [address] Feb, Chronic tension-type headach e, 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 and Seasonal allergic rhinitis, unspecified allergic rhinitis trigger J30.2 [facility] [address] [phone] Feb, [facility] [id number] [place] [phone] Jan, Seasonal allergic rhinitis, unspecified allergic rhinitis trigger J30.2 [facility] [address] [id number] [address] [place] [phone] December, Chronic tension-type headach e, 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 [facility] [address] [id number] [address] [place] [address] [id number] December, Dental examination Z01.20 [facility] [address] [id number] [address] [place] [phone] December, [facility] [address] [facility] [id number] [place] [id number] Oct, [facility] [address] [facility] [id number] [place] [phone] Oct, [facility] [address] [facility] [id number] [address] [place] [phone] Oct, Sore throat J02.9 and Season al allergic rhinitis, unspecified allergic rhinitis trigger J30.2 [facility] [id number] [place] [phone] Oct, [facility] [address] [id number] [place] [address] Sep, [facility] [address] [address] Aug, Menstrual periods irregular N92.6 ; Chronic tension-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, 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 ; Acute upper respiratory infection, unspecified J06.9 and Other viral agents as the cause of diseases classified elsewhere B97.89 [facility] [id number] [place] [address] Jul, [facility] [address] [id number] [place] [id number] Jul, [facility] [address] [address] Jul, Migraine without aura and wi thout status migrainosus, not intractable G43.009 [facility] [address] [address] Jun, [facility] [address] [id number] [address] [place] [id number] May, Migraine without aura and wi thout status migrainosus, not intractable G43.009 [facility] [address] [id number] [address] [place] [phone] May, [facility] [address] [id number] [address] [place] [phone] May, [facility] [address] [id number] [address] [place] [address] [id number] Mar, Dental examination Z01.20 [facility] [address] [id number] [address] [place] [phone] Mar, [facility] [address] [id number] [address] [place] [id number] Jan, Onychomycosis B35.1 [facility] [address] [id number] [address] [place] [phone] Jan, [facility] [address] [id number] [address] [place] [phone] December, Dental caries K02.9 [facility] [address] [id number] [address] [place] [phone] Nov, Dental examination Z01.20 [facility] [address] [id number] [address] [place] [phone] Oct, 2015 Dental examination Z01.20 [facility] [address] [id number] [address] [place] [phone] Oct, [facility] [address] [id number] [address] [place] [phone] Oct, Migraine G43.909 [facility] [address] [id number] [address] [place] [phone] Sep, Onychomycosis B35.1 [facility] [address] [id number] [address] [place] [phone] Sep, [facility] [address] [id number] [address] [place] [phone] Aug, [facility] [address] [id number] [address] [place] [phone] Jul, [facility] [address] [id number] [address] [place] [phone] 16 Apr, 2015 [facility] [address] [id number] [address] [place] [phone] 10 Apr, 2015 Right anterior knee pain 719 .46 [facility] [address] [id number] [address] [place] [id number] 14 Mar, 2015 Tendonitis 726.90 ; HTN (hyp ertension) 401.9 ; Tremors of nervous system 781.0 and Anxiety 300.00 [facility] [address] [facility] [id number] [address] [place] [phone] Mar, Thrush 112.0 [facility] [address] [facility] [id number] [address] [place] [phone] Feb, [facility] [address] [facility] [id number] [place] [phone] Feb, Tremors of nervous system 78 1.0 and Carpal tunnel syndrome 354.0 [facility] [address] [id number] [address] [place] [phone] Jan, Anxiety 300.00 ; Tremors of nervous system 781.0 and Tendonitis 726.90 [facility] [address] [facility] [id number] [address] [place] [phone] Jan, Anxiety 300.00 ; Tremors of nervous system 781.0 and Tendonitis 726.90 [facility] [address] [facility] [id number] [address] [place] [id number] Jan, Sinusitis 473.9 [facility] [address] [facility] [id number] [address] [place] [phone] December, [facility] [address] [facility] [id number] [address] [place] [phone] December, [facility] [address] [facility] [id number] [address] [place] [phone] December, [facility] [address] [facility] [id number] [address] [place] [phone] December, [facility] [address] [facility] [id number] [address] [place] [phone] December, [facility] [address] [facility] [id number] [address] [place] [phone] Nov, [facility] [address] [id number] [address] [place] [phone] Nov, [facility] [address] [id number] [address] [place] [address], [place] [address] Sep, 2014 [facility] [address] [id number] [address] [place] [address], [place] [phone] Sep, 2014 [facility] [address] [id number] [address] [place] [address], [place] [address] Sep, 2014 [facility] [address] [id number] [address] [place] [address], [place] [address] Sep, 2014 [facility] [address] [id number] [address] [place] [address], [place] [address] Jul, [facility] [address] [id number] [address] [place] [address], [place] [address] Jul, [facility] [address] [id number] [address] [place] [address], [place] [phone] Jul, [facility] [address] [id number] [address] [place] [address], [place] [id number] Jul, [facility] [address] [id number] [address] [place] [address], [place] [id number] Jul, [facility] [address] [id number] [address] [place] [address], [place] [address] Jul, [facility] [address] [id number] [address] [place] [address], [place] [address] Jul, [facility] [address] [id number] [address] [place] [address], [place] [address] Jul, [facility] [address] [id number] [address] [place] [address], [place] [address] Jul, [facility] [address] [id number] [address] [place] [address], [place] [address] Jul, [facility] [address] [id number] [address] [place] [address], [place] [address] Jun, [facility] [address] [id number] [address] [place] [address], [place] [id number] 28 Jun, 2014 [facility] [address] [id number] [address] [place] [address], [place] [address] Jun, [facility] [address] [id number] [address] [place] [address], [place] [address] Jun, [facility] [address] [id number] [address] [place] [address], [place] [address] May, [facility] [address] [id number] [address] [place] [address], [place] [id number] 28 May, 2014 [facility] [address] [id number] [address] [place] [address], [place] [address] 14 May, 2014 [facility] [address] [id number] [address] [place] [address], [place] [address] 14 May, 2014 [facility] [address] [id number] [address] [place] [address], [place] [address] 17 Apr, 2013 [facility] [address] [id number] [address] [place] [address], [place] [address] 17 Apr, 2013 [facility] [address] [id number] [address] [place] [address], [place] [address] 17 Apr, 2013 [facility] [address] [id number] [address] [place] [address], [place] [address] 17 Apr, 2013 [facility] [address] [id number] [address] [place] [address], [place] [address] 16 Apr, 2013 [facility] [address] [id number] [address] [place] [address], [place] [address] 16 Sep, 2013 [facility] [address] [id number] [address] [place] [address], [place] [address] 03 Apr, 2013 [facility] [address] [id number] [address] [place] [address], [place] [address] 03 Apr, 2013 [facility] [address] [id number] [address] [place] [address], [place] [address] Mar, [facility] [address] [id number] [facility] [place] [address] Mar, [facility] [address] [id number] [facility] [place] [address] Feb, [facility] [address] [id number] [facility] [place] [address] Feb, [facility] [address] [id number] [address] [place] [address], [place] [address] Feb, [facility] [address] [id number] [address] [place] [address], [place] [address] Feb, [facility] [address] [id number] [address] [place] [address], [place] [address] Jan, [facility] [address] [id number] [address] [place] [address], [place] [address] Jan, [facility] [address] [id number] [address] [place] [address], [place] [address] Jan, [facility] [address] [id number] [address] [place] [address], [place] [address] Jan, [facility] [address] [id number] [address] [place] [address], [place] [address] Jan, [facility] [address] [id number] [address] [place] [address], [place] [address] Jan, [facility] [address] [id number] [address] [place] [address], [place] [address] December, [facility] [address] [id number] [address] [place] [address], [place] [address] December, [facility] [address] [id number] [address] [place] [address], [place] [address] December, [facility] [address] [id number] [address] [place] [address], [place] [address] December, [facility] [address] [id number] [facility] [place] [address] December, [facility] [address] [id number] [address] [place] [address], [place] [address] Nov, [facility] [address] [id number] [address] [place] [address], [place] [address] Nov, [facility] [address] [id number] [address] [place] [address], [place] [address] Nov, [facility] [address] [id number] [address] [place] [address], [place] [address] Nov, [facility] [address] [id number] [address] [place] [address], [place] [address] Nov, [facility] [address] [id number] [address] [place] [address], [place] [address] Nov, [facility] [address] [id number] [address] [place] [address], [place] [address] Oct, [facility] [address] [id number] [address] [place] [address], [place] [address] Oct, [facility] [address] [id number] [address] [place] [address], [place] [address] Oct, [facility] [address] [id number] [address] [place] [address], [place] [address] Oct, [facility] [address] [id number] [address] [place] [address], [place] [address] 14 Sep, 2013 [facility] [address] [id number] [address] [place] [address], [place] [address] 14 Sep, 2013 [facility] [address] [id number] [address] [place] [address], [place] [address] 10 Sep, 2013 [facility] [address] [id number] [address] [place] [address], [place] [address] 10 Sep, 2013 [facility] [address] [id number] [address] [place] [address], [place] [address] 07 Sep, 2013 [facility] [address] [id number] [address] [place] [address], [place] [address] Sep, 2013 [facility] [address] [id number] [address] [place] [address], [place] [address] Sep, [facility] [address] [id number] [address] [place] [address], [place] [address] Sep, 2013 [facility] [address] [id number] [address] [place] [address], [place] [address] Sep, 2013 [facility] [address] [id number] [address] [place] [address], [place] [address] Sep, [facility] [address] [id number] [address] [place] [address], [place] [address] Sep, [facility] [address] [id number] [address] [place] [address], [place] [address] Sep, [facility] [address] [id number] [address] [place] [address], [place] [address] Sep, [facility] [address] [id number] [address] [place] [address], [place] [address] Aug, [facility] [address] [id number] [address] [place] [address], [place] [address] Aug, [facility] [address] [id number] [address] [place] [address], [place] [address] Jul, [facility] [address] [id number] [address] [place] [address], [place] [address] Jul, [facility] [address] [id number] [address] [place] [address], [place] [address] Jun, [facility] [address] [id number] [address] [place] [address], [place] [address] Jun, [facility] [address] [id number] [address] [place] [address], [place] [id number] May, [facility] [address] [id number] [address] [place] [address], [place] [id number] 10 Apr, 2013 [facility] [address] [id number] [address] [place] [address], [place] [address] Mar, [facility] [address] [id number] [address] [place] [address], [place] [address] Jan, [facility] [address] [id number] [address] [place] [address], [place] [address] December, [facility] [address] [id number] [address] [place] [address], [place] [address] December, [facility] [address] [id number] [address] [place] [address], [place] [address] Oct, [facility] [address] [id number] [address] [place] [address], [place] [address] Oct, [facility] [address] [id number] [address] [place] [address], [place] [address] Sep, [facility] [address] [id number] [address] [place] [address], [place] [address] Aug, [facility] [address] [id number] [address] [place] [address], [place] [address] Aug, [facility] [address] [id number] [address] [place] [address], [place] [address] Jul, [facility] [address] [id number] [address] [place] [address], [place] [address] Jul, [facility] [address] [id number] [address] [place] [address], [place] [address] Mar, [facility] [address] [id number] [address] [place] [address], [place] [id number] Mar, [facility] [address] [id number] [address] [place] [address], [place] [id number] Feb, [facility] [address] [id number] [address] [place] [address], [place] [address] Feb, [facility] [address] [id number] [address] [place] [address], [place] [address] Feb, [facility] [address] [id number] [address] [place] [address], [place] [address] Jan, [facility] [address] [id number] [address] [place] [address], [place] [address] Nov, [facility] [address] [id number] [address] [place] [address], [place] [id number] Sep, [facility] [address] [id number] [address] [place] [address], [place] [id number] Sep, [facility] [address] [id number] [address] [place] [address], [place] [address] Sep, [facility] [address] [id number] [address] [place] [address], [place] [address] Aug, [facility] [address] [id number] [address] [place] [address], [place] [address] Aug, [facility] [address] [id number] [address] [place] [address], [place] [id number] Aug, [facility] [address] [id number] [address] [place] [address], [place] [id number] Jun, [facility] [address] [id number] [address] [place] [address], [place] [id number] Jun, [facility] [address] [id number] [address] [place] [address], [place] [id number] Jun, [facility] [address] [id number] [address] [place] [address], [place] [id number] Jun, [facility] [address] [id number] [place] [address], [place] [id number] 25 May, 2011 [facility] [address] [id number] [place] [address], [place] [id number] May, [facility] [address] [id number] [address] [place] [id number] 18 May, 2011 [facility] [address] [facility] [id number] [address] [place] [id number] May, [facility] [address] [facility] [id number] [address] [place] [id number] Jun, [facility] [address] [facility] [id number] [address] [place] [id number] December, [facility] [address] [facility] [id number] [address] [place] [phone] May, IMMUNIZATIONS No Known Immunizations SOCIAL HISTORY Never Assessed REASON FOR VISIT Refill requests PLAN OF CARE VITAL SIGNS MEDICATIONS Medication Instructions Dosage Frequency Start Date End Date Duration S tatus Ripowjrxig-JTXD-Xumwiqxh 50-325-40 MG Orally every 4 hrs 1 tablet a s needed 4h Aug, Active SudoGest 60 MG Orally every 6 hrs 1 tablet as needed 6h 30 days Active RESULTS No Results PROCEDURES [...]
--- OUTSIDE RECORDS SUMMARY | 2020-03-17 19:22 | XMS REPORT ---
Author Author Ann RAMOS Organization [facility], [place] Address [address] [place] [address] Care Team Providers Care Finisher Brush Name Role Phone RACHEL VICTOR M Unavailable PROBLEMS Type Condition ICD9-CM Code VSG65-PI Code Onset Dates Condition S tatus SNOMED Code Problem Perimenopausal N95.1 Active 19853 3289707194 Problem Seasonal allergic rhinitis, unspecified allergic rhinitis trigger J30.2 Active 603242569 Problem HTN (hypertension) 401.9 Active 3 7339211 Problem Vitamin D deficiency E55.9 Active 78679897 Problem Anxiety F41.9 Active 40186724 Problem Nocturnal dyspnea R06.00 Active 24 4412805 Problem Iron deficiency anemia, unspecified iron deficiency an emia type D50.9 Active 69148140 Problem Chronic migraine G43.709 Active 377 88202 Problem Daytime hypersomnia G47.19 Active [id number] Problem Carpal tunnel syndrome, bilateral G56.03 Active [id number] ALLERGIES Substance Reaction Event Type Date Status Hydrocodone-Acetaminophen nausea and vomiting Drug Allergy Apr, Active ENCOUNTERS Encounter Location Date Diagnosis [place] [address] [place] [id number] [place] [phone] Nov, Chronic migraine G43.709 ; S easonal allergic rhinitis, unspecified allergic rhinitis trigger J30.2 ; Vitamin D deficiency E55.9 ; Nocturnal dyspnea R06.00 ; Daytime hypersomnia G47.19 and Anxiety F41.9 [facility] [place] [address] [place] [id number] [place] [phone] Nov, Chronic migraine G43.709 [facility] [place] [address] [place] [address] [id number] [address] [place] [id number] Oct, [facility] [place] [address] [id number] [place] [phone] Sep, Carpal tunnel syndrome, bila teral G56.03 [facility] [place] [address] [facility] [id number] [address] [place] [phone] Sep, Chronic migraine G43.709 [facility] [place] [address] [facility] [id number] [address] [place] [phone] Aug, [facility] [place] [address] [facility] [id number] [address] [place] [phone] Jul, Seasonal allergic rhinitis, unspecified allergic rhinitis trigger J30.2 [facility] [place] [address] [facility] [id number] [address] [place] [phone] Jul, Seasonal allergic rhinitis, unspecified allergic rhinitis trigger J30.2 [facility] [place] [address] [place] [id number] [address] [place] [id number] Jul, Chronic migraine G43.709 [facility] [place] [address] [place] [id number] [address] [place] [phone] Jun, [facility] [address] [facility] [id number] [address] [place] [id number] May, Dental caries K02.9 [facility] [place] [address] [place] [id number] [address] [place] [address] May, Chronic migraine G43.709 [facility] [place] [address] [place] [id number] [address] [place] [id number] Apr, Chronic migraine G43.709 ; I yvette deficiency anemia, unspecified iron deficiency anemia type D50.9 ; Perimenopausal N95.1 and Vitamin D deficiency E55.9 [facility] [place] [address] [facility] [id number] [address] [place] [phone] Mar, [facility] [place] [address] [facility] [id number] [address] [place] [phone] Mar, Seasonal allergic rhinitis, unspecified allergic rhinitis trigger J30.2 [facility] [place] [address] [facility] [id number] [address] [place] [id number] Mar, Chronic migraine G43.709 [facility] [place] [address] [id number] [address] [place] [phone] Mar, [facility] [place] [address] [facility] [id number] [address] [place] [address] Mar, Chronic migraine G43.709 ; I rregular menses N92.6 ; Iron deficiency anemia, unspecified iron deficiency anemia type D50.9 and General medical exam Z00.00 [place] [address] [id number] [address] [place] [id number] Mar, Chronic migraine G43.709 ; I yvette deficiency anemia, unspecified iron deficiency anemia type D50.9 ; Irregular menses N92.6 and General medical exam Z00.00 [facility] [address] [id number] [address] [place] [id number] Feb, Dental examination Z01.20 [place] [address] [id number] [address] [place] [id number] Feb, Chronic tension-type headach e, 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 and Seasonal allergic rhinitis, unspecified allergic rhinitis trigger J30.2 [place] [address] [facility] [id number] [address] [place] [id number] Feb, [place] [address] [id number] [address] [place] [phone] Jan, Seasonal allergic rhinitis, unspecified allergic rhinitis trigger J30.2 [place] [address] [id number] [address] [place] [phone] December, Chronic tension-type headach e, 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 [facility] [address] [id number] [address] [place] [address] [id number] December, Dental examination Z01.20 [facility] [place] [address] [id number] [address] [place] [phone] December, [facility] [place] [address] [id number] [address] [place] [phone] Oct, [facility] [place] [address] [facility] [id number] [address] [place] [phone] Oct, [facility] [address] [facility] [id number] [address] [place] [phone] Oct, Sore throat J02.9 and Season al allergic rhinitis, unspecified allergic rhinitis trigger J30.2 [facility] [place] [address] [place] [id number] [place] [phone] Oct, [facility] [place] [address] [place] [address] [id number] [place] [address] Sep, [facility] [place] [address] [place] [address] [id number] [place] [phone] Aug, Menstrual periods irregular N92.6 ; Chronic tension-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, 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 ; Acute upper respiratory infection, unspecified J06.9 and Other viral agents as the cause of diseases classified elsewhere B97.89 [facility] [place] [address] [facility] [id number] [address] [place] [id number] Jul, [facility] [place] [address] [place] [address] [id number] [place] [phone] Jul, [facility] [place] [address] [place] [address] [id number] [place] [phone] Jul, Migraine without aura and wi thout status migrainosus, not intractable G43.009 [facility] [place] [address] [place] [id number] [address] [place] [id number] Jun, [facility] [place] [address] [facility] [id number] [address] [place] [phone] May, Migraine without aura and wi thout status migrainosus, not intractable G43.009 [facility] [place] [address] [place] [id number] [address] [place] [phone] May, [facility] [place] [address] [place] [address] [id number] [place] [phone] May, [facility] [address] [id number] [address] [place] [id number] Mar, Dental examination Z01.20 [facility] [place] [address] [id number] [address] [place] [phone] Mar, [facility] [place] [address] [id number] [address] [place] [phone] Jan, Onychomycosis B35.1 [facility] [place] [address] [id number] [address] [place] [phone] Jan, [facility] [place] [address] [id number] [address] [place] [phone] December, Dental caries K02.9 [facility] [place] [address] [id number] [address] [place] [phone] Nov, Dental examination Z01.20 [facility] [place] [address] [id number] [address] [place] [phone] Oct, Dental examination Z01.20 [facility] [place] [address] [id number] [address] [place] [phone] Oct, [facility] [place] [address] [id number] [address] [place] [phone] Oct, Migraine G43.909 [facility] [place] [address] [id number] [address] [place] [phone] Sep, Onychomycosis B35.1 [facility] [place] [address] [id number] [address] [place] [phone] Sep, [facility] [place] [address] [id number] [address] [place] [id number] Aug, [facility] [place] [address] [id number] [address] [place] [id number] Jul, [facility] [place] [address] [id number] [address] [place] [phone] Apr, [facility] [place] [address] [place] [id number] [address] [place] [id number] 10 Apr, 2015 Right anterior knee pain 719 .46 [facility] [place] [address] [place] [id number] [place] [id number] Mar, Tendonitis 726.90 ; HTN (hyp ertension) 401.9 ; Tremors of nervous system 781.0 and Anxiety 300.00 [facility] [place] [address] [place] [id number] [place] [phone] Mar, Thrush 112.0 [facility] [place] [address] [place] [id number] [place] [phone] Feb, [facility] [place] [address] [place] [id number] [place] [phone] Feb, Tremors of nervous system 78 1.0 and Carpal tunnel syndrome 354.0 [facility] [place] [address] [place] [id number] [place] [phone] Jan, Anxiety 300.00 ; Tremors of nervous system 781.0 and Tendonitis 726.90 [facility] [place] [address] [place] [address] [id number] [place] [phone] Jan, Anxiety 300.00 ; Tremors of nervous system 781.0 and Tendonitis 726.90 [facility] [place] [address] [place] [id number] [place] [phone] Jan, Sinusitis 473.9 [facility] [place] [address] [place] [id number] [place] [phone] December, [facility] [place] [address] [place] [id number] [place] [phone] December, [facility] [place] [address] [place] [address] [id number] [place] [phone] December, [facility] [place] [address] [place] [address] [id number] [place] [phone] December, [facility] [address] [id number] [address] [place] [address], [place] [address] December, [facility] [address] [id number] [address] [place] [address], [place] [address] Nov, [facility] [address] [id number] [address] [place] [address], [place] [address] Nov, 2014 [facility] [address] [id number] [address] [place] [address], [place] [address] Sep, 2014 [facility] [address] [id number] [address] [place] [address], [place] [address] Sep, 2014 [facility] [address] [id number] [address] [place] [address], [place] [address] Sep, 2014 [facility] [address] [id number] [address] [place] [address], [place] [address] Sep, 2014 [facility] [address] [id number] [address] [place] [address], [place] [address] Jul, [facility] [address] [id number] [address] [place] [address], [place] [address] Jul, [facility] [address] [id number] [address] [place] [address], [place] [address] Jul, [facility] [address] [id number] [address] [place] [address], [place] [address] Jul, [facility] [address] [id number] [address] [place] [address], [place] [address] Jul, [facility] [address] [id number] [address] [place] [address], [place] [address] Jul, [facility] [address] [id number] [address] [place] [address], [place] [address] Jul, [facility] [address] [id number] [address] [place] [address], [place] [address] Jul, [facility] [address] [id number] [address] [place] [address], [place] [address] Jul, [facility] [address] [id number] [address] [place] [address], [place] [address] Jul, [facility] [address] [id number] [address] [place] [address], [place] [address] Jun, [facility] [address] [id number] [address] [place] [address], [place] [address] Jun, [facility] [address] [id number] [address] [place] [address], [place] [address] Jun, [facility] [address] [id number] [address] [place] [address], [place] [address] Jun, [facility] [address] [id number] [address] [place] [address], [place] [address] May, [facility] [address] [id number] [address] [place] [address], [place] [address] May, [facility] [address] [id number] [address] [place] [address], [place] [address] May, [facility] [address] [id number] [address] [place] [address], [place] [address] 14 May, 2014 [facility] [address] [id number] [address] [place] [address], [place] [address] 17 Apr, 2014 [facility] [address] [id number] [address] [place] [address] [address] 17 Sep2013 [facility] [address] [id number] [address] [place] [address] [address] 17 Sep2013 [facility] [address] [id number] [address] [place] [address], [place] [address] 17 Sep2013 [facility] [address] [id number] [address] [place] [address], [place] [address] 16 Apr, 2014 [facility] [address] [id number] [address] [place] [address], [place] [address] 16 Apr, 2013 [facility] [address] [id number] [facility] [address] Apr, [facility] [address] [id number] [address] [place] [address], [place] [address] Apr, [facility] [address] [id number] [address] [place] [address], [place] [address] Mar, [facility] [address] [id number] [address] [place] [address], [place] [address] Mar, [facility] [address] [id number] [address] [place] [address], [place] [address] Feb, [facility] [address] [id number] [address] [place] [address], [place] [address] Feb, [facility] [address] [id number] [address] [place] [address], [place] [address] Feb, [facility] [address] [id number] [address] [place] [address], [place] [address] Feb, [facility] [address] [id number] [address] [place] [address], [place] [address] Jan, [facility] [address] [id number] [address] [place] [address], [place] [address] Jan, [facility] [address] [id number] [address] [place] [address], [place] [address] Jan, [facility] [address] [id number] [address] [place] [address], [place] [address] Jan, [facility] [address] [id number] [address] [place] [address], [place] [address] Jan, [facility] [address] [id number] [address] [place] [address], [place] [address] Jan, [facility] [address] [id number] [address] [place] [address], [place] [address] December, [facility] [address] [id number] [address] [place] [address], [place] [address] December, [facility] [address] [id number] [facility] [address] December, [facility] [address] [id number] [address] [place] [address], [place] [address] December, [facility] [address] [id number] [address] [place] [address], [place] [address] December, [facility] [address] [id number] [address] [place] [address], [place] [address] Nov, [facility] [address] [id number] [address] [place] [address], [place] [address] Nov, [facility] [address] [id number] [address] [place] [address], [place] [address] Nov, [facility] [address] [id number] [address] [place] [address], [place] [address] Nov, [facility] [address] [id number] [address] [place] [address], [place] [address] Nov, [facility] [address] [id number] [address] [place] [address], [place] [address] Nov, [facility] [address] [id number] [address] [place] [address], [place] [address] Oct, [facility] [address] [id number] [address] [place] [address], [place] [address] Oct, [facility] [address] [id number] [address] [place] [address], [place] [address] Oct, [facility] [address] [id number] [address] [place] [address], [place] [address] Oct, [facility] [address] [id number] [address] [place] [address], [place] [address] Sep, [facility] [address] [id number] [address] [place] [address], [place] [address] Sep, [facility] [address] [id number] [address] [place] [address], [place] [address] 10 Sep, 2013 [facility] [address] [id number] [address] [place] [address], [place] [address] Sep, 2013 [facility] [address] [id number] [address] [place] [address], [place] [address] 07 Sep, 2013 [facility] [address] [id number] [address] [place] [address], [place] [address] Sep, 2013 [facility] [address] [id number] [address] [place] [address], [place] [address] Sep, 2013 [facility] [address] [id number] [address] [place] [address], [place] [address] Sep, 2013 [facility] [address] [id number] [address] [place] [address], [place] [address] Sep, 2013 [facility] [address] [id number] [address] [place] [address], [place] [address] Sep, 2013 [facility] [address] [id number] [address] [place] [address], [place] [address] Sep, [facility] [address] [id number] [address] [place] [address], [place] [address] Sep, [facility] [address] [id number] [address] [place] [address], [place] [address] Sep, [facility] [address] [id number] [address] [place] [address], [place] [address] Aug, [facility] [address] [id number] [address] [place] [address], [place] [address] Aug, [facility] [address] [id number] [address] [place] [address], [place] [address] Jul, [facility] [address] [id number] [address] [place] [address], [place] [address] Jul, [facility] [address] [id number] [address] [place] [address], [place] [address] Jun, [facility] [address] [id number] [address] [place] [address], [place] [address] Jun, [facility] [address] [id number] [address] [place] [address], [place] [address] May, [facility] [address] [id number] [address] [place] [address], [place] [address] Apr, [facility] [address] [id number] [address] [place] [address], [place] [address] Mar, [facility] [address] [id number] [address] [place] [address], [place] [address] Jan, [facility] [address] [id number] [address] [place] [address], [place] [address] December, [facility] [address] [id number] [address] [place] [address], [place] [address] December, [facility] [address] [id number] [address] [place] [address], [place] [address] Oct, [facility] [address] [id number] [address] [place] [address], [place] [address] Oct, [facility] [address] [id number] [address] [place] [address], [place] [address] Sep, [facility] [address] [id number] [address] [place] [address], [place] [address] Aug, [facility] [address] [id number] [address] [place] [address], [place] [address] Aug, [facility] [address] [id number] [address] [place] [address], [place] [address] Jul, [facility] [address] [id number] [address] [place] [address], [place] [address] Jul, [facility] [address] [id number] [address] [place] [address], [place] [address] Mar, [facility] [address] [id number] [address] [place] [address], [place] [address] Mar, [facility] [address] [id number] [address] [place] [address], [place] [address] Feb, [facility] [address] [id number] [address] [place] [address], [place] [address] Feb, [facility] [address] [id number] [address] [place] [address], [place] [address] Feb, [facility] [address] [id number] [place] [address], [place] [address] Jan, [facility] [address] [id number] [address] [place] [address], [place] [address] Nov, [facility] [address] [id number] [address] [place] [address], [place] [address] Sep, [facility] [address] [id number] [address] [place] [place] [address], [place] [address] Sep, [facility] [address] [id number] [address] [place] [address], [place] [address] Sep, [facility] [address] [id number] [address] [place] [address], [place] [address] Aug, [facility] [address] [id number] [address] [place] [address], [place] [address] Aug, [facility] [address] [id number] [address] [place] [address], [place] [address] Aug, [facility] [address] [id number] [address] [place] [address], [place] [address] Jun, [facility] [address] [id number] [address] [place] [address], [place] [address] Jun, [facility] [address] [id number] [address] [place] [address], [place] [address] Jun, [facility] [address] [id number] [address] [place] [address], [place] [address] Jun, [facility] [place] [address] [id number] [address] [place] [phone] May, [facility] [place] [address] [id number] [address] [place] [phone] May, [facility] [place] [address] [id number] [address] [place] [phone] May, [facility] [place] [address] [id number] [address] [place] [phone] May, [facility] [place] [address] [id number] [address] [place] [phone] Jun, [facility] [place] [address] [id number] [address] [place] [phone] December, [facility] [place] [address] [id number] [address] [place] [phone] May, IMMUNIZATIONS No Known Immunizations SOCIAL HISTORY Never Assessed [facility] Activity Details Follow Up 6 Months with vit d prior Re ason:LARRY VITAL SIGNS Height 64 in 2017-05-03 Weight 142.3 lbs 2017-05-03 Temperature 98.9 degrees Fahrenheit 2017-05-03 Heart Rate 72 bpm 2017-05-03 Respiratory Rate 18 2017-05-03 BMI 24.42 kg/m2 2017-05-03 Blood pressure systolic 126 mmHg 2017-05-03 Blood pressure diastolic 84 mmHg 2017-05-03 MEDICATIONS Medication Instructions Dosage Frequency Start Date End Date Duration S tatus Ferrous Sulfate 325 mg (65 mg iron) 1 Ta blet by Oral route 2 times per day give with food Apr, Active Zyrtec Allergy Active Flonase 50 mcg/actuation Nasally 1spray(s) intranasally once a day take 1 sprays by Nasal route 1 time per day in each nostril Sep, 30 days Active SudoGest 60 mg Orally every 6 hrs 1 tablet as needed 6h Active Topamax 25 MG Orally 2 times a day 1 tablet 12h 30 d ay(s) Active Xanax 1 MG Orally Twice a day 1 tablet 12h December, 28 d ays Active Propranolol HCl 60 MG Orally Twice a day 1 tablet 12h Active Promethazine HCl 25 MG Orally with severe migraine 1 tablet as needed Active Proventil HFA 108 (90 Base) MCG/ACT INHA LE TWO PUFFS BY MOUTH EVERY 6 HOURS NEEDED FOR SHORTNESS OF BREATH/COUGH 25 Active Neurontin 100 MG Orally Three times a day 1 capsule 8h Active Vitamin D (Ergocalciferol) 68657 UNIT Orally once weekly 1 capsule Mar, Jun, Active Qpmqukrqgh-LAGE-Yndjzcvv 50-325-40 MG Orally every 4 hrs 1 tablet a s needed 4h Active RESULTS No Results PROCEDURES No Known [...]
--- OUTSIDE RECORDS SUMMARY | 2020-03-17 19:23 | XMS REPORT ---
Author Author Ann MCHUGH Organization [facility] Address [address] [place] [address] Care Team Providers Care Paraprofessional Aide Teacher Name Role Phone RAFAELA MCHUGH Unavailable PROBLEMS Type Condition ICD9-CM Code PLN96-SG Code Onset Dates Condition S tatus SNOMED Code Problem Vitamin D deficiency E55.9 Active 46497580 Problem Perimenopausal N95.1 Active 03757 [id number] Problem Chronic migraine G43.709 Active 377 88407 Problem Iron deficiency anemia, unspecified iron deficiency an emia type D50.9 Active 99010361 Problem Migraine without aura and without status migrain osus, not intractable G43.009 Active 362114195 Problem HTN (hypertension) 401.9 Active 3 6337994 Problem Seasonal allergic rhinitis, unspecified allergic rhinitis trigger J30.2 Active 475449233 Problem Chronic tension-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, 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 Active 785066257 ALLERGIES No Information SOCIAL HISTORY Never Assessed [...]
--- OUTSIDE RECORDS SUMMARY | 2020-03-17 19:23 | XMS REPORT ---
Author Author Ann RAMOS Organization [facility] [place] Address [address] [place] [address] Care Team Providers Care Energy Efficient Site Manager Name Role Phone VICTOR M RAMOS Unavailable PROBLEMS Type Condition ICD9-CM Code YLT07-YU Code Onset Dates Condition S tatus SNOMED Code Problem Perimenopausal N95.1 Active 19507 [id number] Problem HTN (hypertension) 401.9 Active 3 4571388 Problem Vitamin D deficiency E55.9 Active 76272962 Problem Carpal tunnel syndrome, bilateral G56.03 Active [id number] Problem Chronic migraine G43.709 Active 377 20419 Problem Chronic tension-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, 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 Active 111664386 Problem Migraine without aura and without status migrain osus, not intractable G43.009 Active 607049572 Problem Iron deficiency anemia, unspecified iron deficiency an emia type D50.9 Active 01830820 Problem Seasonal allergic rhinitis, unspecified allergic rhinitis trigger J30.2 Active [id number] ALLERGIES No Information ENCOUNTERS Encounter Location Date Diagnosis [facility] [place] [address] [id number] [address] [place] [address] Nov, [facility] [address] [id number] [address] [place] [address] [id number] Nov, [facility] [place] [address] [id number] [address] [place] [address] Oct, [facility] [place] [address] [id number] [address] [place] [address] Sep, Carpal tunnel syndrome, bila teral G56.03 [facility] [place] [address] [id number] [address] [place] [address] Sep, Chronic migraine G43.709 [facility] [place] [address] [id number] [address] [place] [address] Aug, [facility] [place] [address] [facility] [id number] [address] [place] [address] Jul, Seasonal allergic rhinitis, unspecified allergic rhinitis trigger J30.2 [facility] [place] [address] [facility] [id number] [address] [place] [address] Jul, Seasonal allergic rhinitis, unspecified allergic rhinitis trigger J30.2 [facility] [place] [address] [facility] [id number] [address] [place] [address] Jul, Chronic migraine G43.709 [facility] [place] [address] [facility] [id number] [place] [address] Jun, [facility] [address] [facility] [id number] [address] [place] [address] [id number] May, Dental caries K02.9 [facility] [place] [address] [place] [address] May, Chronic migraine G43.709 [facility] [place] [address] [facility] [id number] [address] [place] [address] Apr, Chronic migraine G43.709 ; I yvette deficiency anemia, unspecified iron deficiency anemia type D50.9 ; Perimenopausal N95.1 and Vitamin D deficiency E55.9 [facility] [place] [address] [facility] [id number] [address] [place] [address] Mar, [facility] [place] [address] [facility] [id number] [address] [place] [address] Mar, Seasonal allergic rhinitis, unspecified allergic rhinitis trigger J30.2 [facility] [place] [address] [facility] [id number] [address] [place] [address] Mar, Chronic migraine G43.709 [facility] [place] [address] [facility] [id number] [address] [place] [address] Mar, [facility] [place] [address] [id number] [address] [place] [address] Mar, Chronic migraine G43.709 ; I rregular menses N92.6 ; Iron deficiency anemia, unspecified iron deficiency anemia type D50.9 and General medical exam Z00.00 [facility] [place] [address] [id number] [address] [place] [address] Mar, Chronic migraine G43.709 ; I yvette deficiency anemia, unspecified iron deficiency anemia type D50.9 ; Irregular menses N92.6 and General medical exam Z00.00 [facility] [address] [id number] [address] [place] [id number] Feb, Dental examination Z01.20 [facility] [place] [address] [id number] [address] [place] [address] Feb, Chronic tension-type headach e, 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 and Seasonal allergic rhinitis, unspecified allergic rhinitis trigger J30.2 [facility] [place] [address] [id number] [address] [place] [address] Feb, [facility] [place] [address] [facility] [id number] [address] [place] [address] Jan, Seasonal allergic rhinitis, unspecified allergic rhinitis trigger J30.2 [facility] [place] [address] [id number] [address] [place] [address] December, Chronic tension-type headach e, 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 [facility] [address] [id number] [address] [place] [address] [phone] December, Dental examination Z01.20 [facility] [place] [address] [id number] [address] [place] [address] December, [facility] [place] [address] [facility] [id number] [address] [place] [address] Oct, [facility] [place] [address] [facility] [id number] [address] [place] [address] Oct, [facility] [address] [id number] [address] [place] [address] Oct, Sore throat J02.9 and Season al allergic rhinitis, unspecified allergic rhinitis trigger J30.2 [facility] [place] [id number] [place] [address] Oct, [facility] [place] [address] [id number] [address] [place] [address] Sep, [facility] [place] [address] [address] Aug, Menstrual periods irregular N92.6 ; Chronic tension-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, 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 ; Acute upper respiratory infection, unspecified J06.9 and Other viral agents as the cause of diseases classified elsewhere B97.89 [facility] [place] [address] [id number] [place] [address] Jul, [facility] [place] [address] [address] Jul, [facility] [place] [address] [address] Jul, Migraine without aura and wi thout status migrainosus, not intractable G43.009 [facility] [place] [address] [id number] [address] [place] [address] Jun, [facility] [place] [address] [id number] [address] [place] [address] May, Migraine without aura and wi thout status migrainosus, not intractable G43.009 [facility] [place] [address] [facility] [id number] [address] [place] [address] May, [facility] [place] [address] [id number] [address] [place] [address] May, [facility] [address] [facility] [id number] [address] [place] [address] [id number] Mar, Dental examination Z01.20 [facility] [place] [address] [id number] [address] [place] [address] Mar, [facility] [place] [address] [id number] [address] [place] [address] Jan, Onychomycosis B35.1 [facility] [place] [address] [id number] [address] [place] [address] Jan, [facility] [place] [address] [id number] [address] [place] [address] December, Dental caries K02.9 [facility] [place] [address] [id number] [address] [place] [address] Nov, Dental examination Z01.20 [facility] [place] [address] [id number] [address] [place] [address] Oct, Dental examination Z01.20 [facility] [place] [address] [id number] [address] [place] [address] Oct, [facility] [place] [address] [id number] [address] [place] [address] Oct, Migraine G43.909 [facility] [place] [address] [id number] [address] [place] [address] Sep, Onychomycosis B35.1 [facility] [place] [address] [id number] [address] [place] [address] Sep, [facility] [place] [address] [id number] [address] [place] [address] Aug, [facility] [place] [address] [id number] [address] [place] [phone] Jul, [facility] [place] [address] [id number] [address] [place] [address] 16 Apr, 2015 [facility] [place] [address] [id number] [address] [place] [address] 10 Apr, 2015 Right anterior knee pain 719 .46 [facility] [place] [address] [id number] [address] [place] [address] Mar, Tendonitis 726.90 ; HTN (hyp ertension) 401.9 ; Tremors of nervous system 781.0 and Anxiety 300.00 [facility] [place] [address] [facility] [id number] [address] [place] [address] Mar, Thrush 112.0 [facility] [place] [address] [facility] [id number] [address] [place] [address] Feb, [facility] [place] [address] [facility] [id number] [address] [place] [address] Feb, Tremors of nervous system 78 1.0 and Carpal tunnel syndrome 354.0 [facility] [place] [address] [id number] [address] [place] [phone] Jan, Anxiety 300.00 ; Tremors of nervous system 781.0 and Tendonitis 726.90 [facility] [place] [address] [id number] [address] [place] [address] Jan, Anxiety 300.00 ; Tremors of nervous system 781.0 and Tendonitis 726.90 [facility] [place] [address] [id number] [address] [place] [address] Jan, Sinusitis 473.9 [facility] [place] [address] [facility] [id number] [address] [place] [address] December, [facility] [place] [address] [id number] [address] [place] [phone] December, [facility] [place] [address] [id number] [address] [place] [phone] December, [facility] [place] [address] [id number] [address] [place] [phone] December, [facility] [place] [address] [facility] [id number] [address] [place] [phone] December, [facility] [place] [address] [facility] [id number] [address] [place] [phone] Nov, [facility] [place] [address] [id number] [address] [place] [address], [place] [address] Nov, 2014 [facility] [address] [id number] [address] [place] [address], [place] [address] Sep, 2014 [facility] [address] [id number] [address] [place] [address], [place] [address] Sep, 2014 [facility] [address] [id number] [address] [place] [address], [place] [address] Sep, 2014 [facility] [address] [id number] [address] [place] [address], [place] [address] Sep, 2014 [facility] [address] [id number] [address] [place] [address], [place] [address] Jul, [facility] [address] [id number] [address] [place] [address], [place] [address] Jul, [facility] [address] [id number] [address] [place] [address], [place] [address] Jul, [facility] [address] [id number] [address] [place] [address], [place] [address] Jul, [facility] [address] [id number] [address] [place] [address], [place] [address] Jul, [facility] [address] [id number] [address] [place] [address], [place] [address] Jul, [facility] [address] [id number] [address] [place] [address], [place] [address] Jul, [facility] [address] [id number] [address] [place] [address], [place] [address] Jul, [facility] [address] [id number] [address] [place] [address], [place] [address] Jul, [facility] [address] [id number] [address] [place] [address], [place] [address] Jul, [facility] [address] [id number] [address] [place] [address], [place] [address] Jun, [facility] [address] [id number] [address] [place] [address], [place] [address] Jun, [facility] [address] [id number] [address] [place] [address], [place] [address] Jun, [facility] [address] [id number] [address] [place] [address], [place] [address] Jun, [facility] [address] [id number] [address] [place] [address], [place] [address] May, [facility] [address] [id number] [address] [place] [address], [place] [address] May, [facility] [address] [id number] [address] [place] [address], [place] [address] May, [facility] [address] [id number] [address] [place] [address], [place] [address] May, [facility] [address] [id number] [address] [place] [address], [place] [address] 17 Apr, 2013 [facility] [address] [id number] [address] [place] [address], [place] [address] 17 Apr, 2013 [facility] [address] [id number] [address] [place] [address], [place] [address] 17 Apr, 2013 [facility] [address] [id number] [address] [place] [address], [place] [address] 17 Sep, 2013 [facility] [address] [id number] [address] [place] [address] 16 Sep, 2013 [facility] [address] [id number] [address] [place] [address], [place] [address] 16 Sep, 2013 [facility] [address] [id number] [address] [place] [address], [place] [address] 03 Sep, 2013 [facility] [address] [id number] [address] [place] [address], [place] [address] 03 Sep, 2013 [facility] [address] [id number] [address] [place] [address], [place] [address] Mar, [facility] [address] [id number] [address] [place] [address], [place] [address] Mar, [facility] [address] [id number] [address] [place] [address], [place] [address] Feb, [facility] [address] [id number] [address] [place] [address], [place] [address] Feb, [facility] [address] [id number] [address] [place] [address], [place] [address] Feb, [facility] [address] [id number] [address] [place] [address], [place] [address] Feb, [facility] [address] [id number] [address] [place] [address], [place] [address] Jan, [facility] [address] [id number] [address] [place] [address], [place] [address] Jan, [facility] [address] [id number] [address] [place] [address], [place] [address] Jan, [facility] [address] [id number] [address] [place] [address], [place] [address] Jan, [facility] [address] [id number] [address] [place] [address], [place] [address] Jan, [facility] [address] [id number] [address] [place] [address], [place] [address] Jan, [facility] [address] [id number] [address] [place] [address], [place] [address] December, [facility] [address] [id number] [address] [place] [address], [place] [address] December, [facility] [address] [id number] [address] [place] [address], [place] [address] December, [facility] [address] [id number] [address] [place] [address], [place] [address] December, [facility] [address] [id number] [facility] [place] [address] December, [facility] [address] [id number] [facility] [place] [address] Nov, [facility] [address] [id number] [facility] [place] [address] Nov, [facility] [address] [id number] [address] [place] [address], [place] [address] Nov, [facility] [address] [id number] [address] [place] [address], [place] [address] Nov, [facility] [address] [id number] [address] [place] [address], [place] [address] Nov, [facility] [address] [id number] [address] [place] [address], [place] [address] Nov, [facility] [address] [id number] [address] [place] [address], [place] [address] Oct, [facility] [address] [id number] [address] [place] [address], [place] [address] Oct, [facility] [address] [id number] [address] [place] [address], [place] [address] Oct, [facility] [address] [id number] [address] [place] [address], [place] [address] Oct, [facility] [address] [id number] [address] [place] [address], [place] [address] Sep, [facility] [address] [id number] [address] [place] [address], [place] [address] Sep, [facility] [address] [id number] [address] [place] [address], [place] [address] Sep, [facility] [address] [id number] [address] [place] [address], [place] [address] Sep, [facility] [address] [id number] [address] [place] [address], [place] [address] Sep, 2013 [facility] [address] [id number] [address] [place] [address], [place] [address] Sep, 2013 [facility] [address] [id number] [address] [place] [address], [place] [address] Sep, 2013 [facility] [address] [id number] [address] [place] [address], [place] [address] Sep, 2013 [facility] [address] [id number] [address] [place] [address], [place] [address] Sep, 2013 [facility] [address] [id number] [address] [place] [address], [place] [address] Sep, 2013 [facility] [address] [id number] [address] [place] [address], [place] [address] Sep, [facility] [address] [id number] [address] [place] [address], [place] [address] Sep, 2013 [facility] [address] [id number] [address] [place] [address], [place] [address] Sep, [facility] [address] [id number] [address] [place] [address], [place] [address] Aug, [facility] [address] [id number] [address] [place] [address] Aug, [facility] [address] [id number] [address] [place] [address], [place] [address] Jul, [facility] [address] [id number] [address] [place] [address] Jul, [facility] [address] [id number] [address] [place] [address] Jun, [facility] [address] [id number] [address] [place] [address] Jun, [facility] [address] [id number] [address] [place] [address] May, [facility] [address] [id number] [address] [place] [address], [place] [address] Apr, [facility] [address] [id number] [address] [place] [address], [place] [address] Mar, [facility] [address] [id number] [address] [place] [address], [place] [address] Jan, [facility] [address] [id number] [address] [place] [address], [place] [address] December, [facility] [address] [id number] [address] [place] [address], [place] [address] December, [facility] [address] [id number] [address] [place] [address], [place] [address] Oct, [facility] [address] [id number] [address] [place] [address], [place] [address] Oct, [facility] [address] [id number] [address] [place] [address], [place] [address] Sep, [facility] [address] [id number] [address] [place] [address], [place] [address] Aug, [facility] [address] [id number] [address] [place] [address], [place] [address] Aug, [facility] [address] [id number] [address] [place] [address], [place] [address] Jul, [facility] [address] [id number] [address] [place] [address], [place] [address] Jul, [facility] [address] [id number] [address] [place] [address], [place] [address] Mar, [facility] [address] [id number] [address] [place] [address], [place] [address] Mar, [facility] [address] [id number] [address] [place] [address], [place] [address] Feb, [facility] [address] [id number] [address] [place] [id number] Feb, [facility] [address] [id number] [address] [place] [address], [place] [address] Feb, [facility] [address] [id number] [address] [place] [address], [place] [address] Jan, [facility] [address] [id number] [address] [place] [address], [place] [address] Nov, [facility] [address] [id number] [address] [place] [address], [place] [address] Sep, [facility] [address] [id number] [address] [place] [address], [place] [address] Sep, [facility] [address] [id number] [address] [place] [address], [place] [address] Sep, [facility] [address] [id number] [address] [place] [address], [place] [address] Aug, [facility] [address] [id number] [address] [place] [address], [place] [address] Aug, [facility] [address] [id number] [address] [place] [address], [place] [address] Aug, [facility] [address] [id number] [address] [place] [address], [place] [address] Jun, [facility] [address] [id number] [address] [place] [address], [place] [address] Jun, [facility] [address] [id number] [address] [place] [phone] Jun, [facility] [address] [id number] [address] [place] [address], [place] [address] Jun, [facility] [address] [id number] [address] [place] [address], [place] [address] May, [facility] [address] [id number] [address] [place] [address], [place] [address] May, [facility] [place] [address] [facility] [id number] [address] [place] [id number] 18 May, 2011 [facility] [place] [address] [facility] [id number] [address] [place] [id number] May, [facility] [place] [address] [facility] [id number] [address] [place] [id number] Jun, [facility] [place] [address] [facility] [id number] [address] [place] [id number] December, [facility] [place] [address] [facility] [id number] [address] [place] [phone] May, IMMUNIZATIONS No Known Immunizations SOCIAL HISTORY Never Assessed REASON FOR VISIT Lab (walk-in) PLAN OF CARE VITAL SIGNS MEDICATIONS Unknown Medications RESULTS Name Result Date Reference Range LH 2017-03-10 LH 17.7 PROLACTIN 2017-03-10 Prolactin 23.2 4.8-23.3 ESTRADIOL 2017-03-10 Estradiol 247.7 VITAMIN B12 2017-03-10 Vitamin B12 [phone] MAGNESIUM, SERUM 2017-03-10 Magnesium, Serum 2.1 1.6-2.3 FSH, SERUM 2017-03-10 FSH 11.7 CBC 2017-03-10 WBC 4.1 3.4-10.8 RBC 3.87 3.77-5.28 Hemoglobin 11.8 11.1-15.9 Hematocrit 34.6 34.0-46.6 MCV 89 79-97 MCH 30.5 26.6-33.0 MCHC 34.1 31.5-35.7 RDW 14.2 12.3-15.4 Platelets 269 150-379 Neutrophils 45 Lymphs 30 Monocytes 15 Eos 9 Basos 1 Neutrophils (Absolute) 1.9 1.4-7.0 Lymphs (Absolute) 1.2 0.7-3.1 Monocytes(Absolute) 0.6 0.1-0.9 Eos (Absolute) 0.4 0.0-0.4 Baso (Absolute) 0.0 0.0-0.2 Immature Granulocytes 0 Immature Grans (Abs) 0.0 0.0-0.1 ESR/SED RATE 2017-03-10 Sedimentation Rate-[facility] 28 0- 32 VITAMIN D, 25-H 2017-03-10 Vitamin D, 25-Hydroxy 17.4 30.0-100.0 LIPID PANEL 2017-03-10 Cholesterol, Total 115 100-199 Triglycerides 78 0-149 HDL Cholesterol 48 >39 VLDL Cholesterol Yrn 16 5-40 LDL Cholesterol Calc 51 0-99 CMP 2017-03-10 Glucose, Serum 83 65-99 BUN 18 6-24 Creatinine, Serum 0.67 0.57-1.00 eGFR If NonAfricn Am 105 >59 eGFR If Africn Am 121 >59 BUN/Creatinine Ratio 27 9-23 Sodium, Serum 139 134-144 Potassium, Serum 4.1 3.5-5.2 Chloride, Serum 104 96-106 Carbon Dioxide, Total 21 18-29 Calcium, Serum 8.7 8.7-10.2 Protein, Total, Serum 7.0 6.0-8.5 Albumin, Serum 3.6 3.5-5.5 Globulin, Total 3.4 1.5-4.5 A/G Ratio 1.1 1.2-2.2 Bilirubin, Total <0.2 0.0-1.2 Alkaline Phosphatase, S 63 39-117 AST (SGOT) 12 0-40 ALT (SGPT) 15 0-32 PROCEDURES Procedure Date Ordered Result Body Site VITAMIN B-12 Mar 10, 2017 ASSAY OF MAGNESIUM Mar 10, 2017 VENIPUNCT, ROUTINE* Mar 10, 2017 GONADOTROPIN (LH) Mar 10, 2017 COMPREHEN METABOLIC PANEL Mar 10, 2017 ASSAY OF ESTRADIOL Mar 10, 2017 GONADOTROPIN (FSH) Mar 10, 2017 ASSAY OF VITAMIN D Mar 10, 2017 LIPID PANEL Mar 10, 2017 COMPLETE CBC W/AUTO DIFF WBC Mar 10, 2017 ASSAY OF PROLACTIN Mar 10, 2017 RBC SED RATE, AUTOMATED Mar 10, 2017 INSTRUCTIONS MEDICATIONS ADMINISTERED No Known Medications [...]
--- OUTSIDE RECORDS SUMMARY | 2020-03-17 19:23 | XMS REPORT ---
Author Author Ann RAMOS Organization [facility] Address [address] [place] [address] Care Team Providers Care Gis Scientist Name Role Phone RACHEL VICTOR M Unavailable PROBLEMS Type Condition ICD9-CM Code BTE32-TN Code Onset Dates Condition S tatus SNOMED Code Problem Perimenopausal N95.1 Active 08896 [id number] Problem Seasonal allergic rhinitis, unspecified allergic rhinitis trigger J30.2 Active 141104422 Problem HTN (hypertension) 401.9 Active 3 1888223 Problem Vitamin D deficiency E55.9 Active 19146294 Problem Anxiety F41.9 Active 97025400 Problem Nocturnal dyspnea R06.00 Active 24 0139045 Problem Iron deficiency anemia, unspecified iron deficiency an emia type D50.9 Active 12600809 Problem Chronic migraine G43.709 Active 377 88437 Problem Daytime hypersomnia G47.19 Active [id number] Problem Carpal tunnel syndrome, bilateral G56.03 Active [id number] ALLERGIES No Information ENCOUNTERS Encounter Location Date Diagnosis [place] [address] [place] [id number] [place] [address] December, Anxiety F41.9 [place] [address] [address] Nov, Chronic migraine G43.709 ; S easonal allergic rhinitis, unspecified allergic rhinitis trigger J30.2 ; Vitamin D deficiency E55.9 ; Nocturnal dyspnea R06.00 ; Daytime hypersomnia G47.19 and Anxiety F41.9 [place] [address] [place] [id number] [address] [place] [address] Nov, Chronic migraine G43.709 [place] [address] [place] [id number] [place] [address] Oct, [facility] [address] [facility] [id number] [address] [place] [address] Sep, Carpal tunnel syndrome, bila teral G56.03 [facility] [address] [facility] [place] [place] [id number] [address] [place] [address] Sep, Chronic migraine G43.709 [facility] [address] [facility] [place] [id number] [address] [place] [address] Aug, [facility] [address] [facility] [place] [place] [id number] [place] [id number] Jul, Seasonal allergic rhinitis, unspecified allergic rhinitis trigger J30.2 [place] [address] [place] [id number] [place] [address] Jul, Seasonal allergic rhinitis, unspecified allergic rhinitis trigger J30.2 [place] [address] [address] Jul, Chronic migraine G43.709 [facility] [address] [facility] [place] [place] [id number] [address] [place] [address] Jun, [facility] [id number] [place] [id number] May, Dental caries K02.9 [facility] [address] [place] [id number] [address] [place] [address] May, Chronic migraine G43.709 [facility] [address] [place] [id number] [place] [address] Apr, Chronic migraine G43.709 ; I yvette deficiency anemia, unspecified iron deficiency anemia type D50.9 ; Perimenopausal N95.1 and Vitamin D deficiency E55.9 [facility] [address] [facility] [place] [place] [id number] [address] [place] [address] Mar, [facility] [address] [place] [id number] [address] [place] [address] Mar, Seasonal allergic rhinitis, unspecified allergic rhinitis trigger J30.2 [facility] [address] [id number] [address] [place] [address] Mar, Chronic migraine G43.709 [facility] [address] [id number] [address] [place] [address] Mar, [facility] [address] [facility] [place] [place] [id number] [address] [place] [address] Mar, Chronic migraine G43.709 ; I rregular menses N92.6 ; Iron deficiency anemia, unspecified iron deficiency anemia type D50.9 and General medical exam Z00.00 [facility] [address] [id number] [address] [place] [address] Mar, Chronic migraine G43.709 ; I yvette deficiency anemia, unspecified iron deficiency anemia type D50.9 ; Irregular menses N92.6 and General medical exam Z00.00 [facility] [id number] [place] [address] [id number] Feb, Dental examination Z01.20 [facility] [address] [id number] [address] [place] [address] Feb, Chronic tension-type headach e, 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 and Seasonal allergic rhinitis, unspecified allergic rhinitis trigger J30.2 [facility] [address] [id number] [address] [place] [address] Feb, [facility] [address] [id number] [address] [place] [phone] Jan, Seasonal allergic rhinitis, unspecified allergic rhinitis trigger J30.2 [facility] [address] [id number] [address] [place] [address] December, Chronic tension-type headach e, 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 [facility] [address] [id number] [address] [place] [address] [id number] December, Dental examination Z01.20 [facility] [address] [id number] [address] [place] [address] December, [facility] [address] [facility] [place] [id number] [address] [place] [address] Oct, [facility] [address] [facility] [place] [place] [id number] [address] [place] [address] Oct, [facility] [address] [facility] [place] [id number] [address] [place] [address] Oct, Sore throat J02.9 and Season al allergic rhinitis, unspecified allergic rhinitis trigger J30.2 [facility] [address] [facility] [place] [place] [id number] [address] [place] [phone] Oct, [facility] [address] [facility] [place] [place] [id number] [address] [place] [address] Sep, [facility] [address] [facility] [place] [place] [id number] [address] [place] [address] Aug, Menstrual periods irregular N92.6 ; Chronic tension-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, 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 ; Acute upper respiratory infection, unspecified J06.9 and Other viral agents as the cause of diseases classified elsewhere B97.89 [facility] [address] [facility] [place] [place] [id number] [address] [place] [phone] Jul, [facility] [address] [facility] [place] [place] [id number] [address] [place] [phone] Jul, [facility] [address] [facility] [place] [id number] [address] [place] [address] Jul, Migraine without aura and wi thout status migrainosus, not intractable G43.009 [facility] [address] [facility] [place] [place] [id number] [address] [place] [phone] Jun, [facility] [address] [facility] [place] [place] [id number] [address] [place] [address] May, Migraine without aura and wi thout status migrainosus, not intractable G43.009 [facility] [address] [facility] [place] [id number] [address] [place] [id number] May, [facility] [address] [id number] [address] [place] [address] May, [facility] [address] [id number] [address] [place] [address] [id number] Mar, Dental examination Z01.20 [facility] [address] [id number] [address] [place] [address] Mar, [facility] [address] [id number] [address] [place] [phone] Jan, Onychomycosis B35.1 [facility] [address] [id number] [address] [place] [address] Jan, [facility] [address] [id number] [address] [place] [address] December, Dental caries K02.9 [facility] [address] [id number] [address] [place] [address] Nov, Dental examination Z01.20 [facility] [address] [id number] [address] [place] [address] Oct, Dental examination Z01.20 [facility] [address] [id number] [address] [place] [address] Oct, [facility] [address] [id number] [address] [place] [address] Oct, Migraine G43.909 [facility] [address] [id number] [address] [place] [address] Sep, Onychomycosis B35.1 [facility] [address] [id number] [address] [place] [phone] Sep, [facility] [address] [id number] [address] [place] [phone] Aug, [facility] [address] [id number] [address] [place] [phone] Jul, [facility] [address] [facility] [place] [place] [id number] [address] [place] [address] 16 Apr, 2015 [facility] [address] [facility] [place] [place] [id number] [address] [place] [address] 10 Apr, 2015 Right anterior knee pain 719 .46 [facility] [address] [facility] [id number] [address] [place] [phone] 14 Mar, 2015 Tendonitis 726.90 ; HTN (hyp ertension) 401.9 ; Tremors of nervous system 781.0 and Anxiety 300.00 [facility] [address] [facility] [id number] [address] [place] [address] Mar, Thrush 112.0 [facility] [address] [facility] [id number] [address] [place] [phone] Feb, [facility] [address] [place] [id number] [place] [phone] Feb, Tremors of nervous system 78 1.0 and Carpal tunnel syndrome 354.0 [facility] [address] [facility] [id number] [address] [place] [address] Jan, Anxiety 300.00 ; Tremors of nervous system 781.0 and Tendonitis 726.90 [facility] [address] [facility] [id number] [address] [place] [address] Jan, Anxiety 300.00 ; Tremors of nervous system 781.0 and Tendonitis 726.90 [facility] [address] [facility] [place] [id number] [address] [place] [address] Jan, Sinusitis 473.9 [facility] [address] [facility] [place] [place] [id number] [address] [place] [phone] December, [facility] [address] [place] [id number] [address] [place] [phone] December, [facility] [address] [place] [id number] [address] [place] [phone] December, [facility] [address] [place] [id number] [place] [phone] December, [facility] [address] [id number] [address] [place] [address], [place] [address] December, [facility] [address] [id number] [address] [place] [address], [place] [address] Nov, [facility] [address] [id number] [address] [place] [address], [place] [address] Nov, [facility] [address] [id number] [address] [place] [address], [place] [address] Sep, 2014 [facility] [address] [id number] [address] [place] [address], [place] [address] Sep, 2014 [facility] [address] [id number] [address] [place] [address], [place] [address] Sep, 2014 [facility] [address] [id number] [address] [place] [address], [place] [address] Sep, 2014 [facility] [address] [id number] [address] [place] [address], [place] [address] Jul, [facility] [address] [id number] [address] [place] [address], [place] [address] Jul, [facility] [address] [id number] [address] [place] [address], [place] [address] Jul, [facility] [address] [id number] [address] [place] [address], [place] [address] Jul, [facility] [address] [id number] [address] [place] [address], [place] [address] Jul, [facility] [address] [id number] [address] [place] [address], [place] [address] Jul, [facility] [address] [id number] [address] [place] [address], [place] [address] Jul, [facility] [address] [id number] [address] [place] [address], [place] [address] Jul, [facility] [address] [id number] [address] [place] [address], [place] [address] Jul, [facility] [address] [id number] [address] [place] [address], [place] [address] Jul, [facility] [address] [id number] [address] [place] [address], [place] [address] Jun, [facility] [address] [id number] [address] [place] [address], [place] [address] Jun, [facility] [address] [id number] [address] [place] [address], [place] [address] Jun, [facility] [address] [id number] [address] [place] [address], [place] [address] Jun, [facility] [address] [id number] [address] [place] [address], [place] [address] May, [facility] [address] [id number] [address] [place] [address], [place] [address] May, [facility] [address] [id number] [address] [place] [address], [place] [address] May, [facility] [address] [id number] [address] [place] [address], [place] [address] May, [facility] [address] [id number] [address] [place] [address], [place] [address] 17 Apr, 2014 [facility] [address] [id number] [address] [place] [address], [place] [address] 17 Apr, 2014 [facility] [address] [id number] [address] [place] [address], [place] [address] 17 Apr, 2014 [facility] [address] [id number] [address] [place] [address], [place] [address] 17 Apr, 2014 [facility] [address] [id number] [address] [place] [address], [place] [address] 16 Apr, 2014 [facility] [address] [id number] [address] [place] [address], [place] [address] 16 Apr, 2014 [facility] [address] [id number] [facility] [address] Apr, [facility] [address] [id number] [address] [place] [address], [place] [address] Apr, [facility] [address] [id number] [address] [place] [address], [place] [address] Mar, [facility] [address] [id number] [address] [place] [address], [place] [address] Mar, [facility] [address] [id number] [address] [place] [address], [place] [address] Feb, [facility] [address] [id number] [address] [place] [address], [place] [address] Feb, [facility] [address] [id number] [address] [place] [address], [place] [address] Feb, [facility] [address] [id number] [address] [place] [address], [place] [address] Feb, [facility] [address] [id number] [address] [place] [address], [place] [address] Jan, [facility] [address] [id number] [address] [place] [address], [place] [address] Jan, [facility] [address] [id number] [address] [place] [address], [place] [address] Jan, [facility] [address] [id number] [address] [place] [address], [place] [address] Jan, [facility] [address] [id number] [address] [place] [address], [place] [address] Jan, [facility] [address] [id number] [address] [place] [address], [place] [address] Jan, [facility] [address] [id number] [address] [place] [address], [place] [address] December, [facility] [address] [id number] [facility] [place] [address] December, [facility] [address] [id number] [address] [place] [address], [place] [address] December, [facility] [address] [id number] [address] [place] [address], [place] [address] December, [facility] [address] [id number] [address] [place] [address], [place] [address] December, [facility] [address] [id number] [address] [place] [address], [place] [address] Nov, [facility] [address] [id number] [address] [place] [address], [place] [address] Nov, [facility] [address] [id number] [address] [place] [address], [place] [address] Nov, [facility] [address] [id number] [address] [place] [address], [place] [address] Nov, [facility] [address] [id number] [address] [place] [address], [place] [address] Nov, [facility] [address] [id number] [address] [place] [address], [place] [address] Nov, [facility] [address] [id number] [address] [place] [address], [place] [address] Oct, [facility] [address] [id number] [address] [place] [address], [place] [address] Oct, [facility] [address] [id number] [address] [place] [address], [place] [address] Oct, [facility] [address] [id number] [address] [place] [address], [place] [address] Oct, [facility] [address] [id number] [address] [place] [address], [place] [address] Sep, [facility] [address] [id number] [address] [place] [address], [place] [address] Sep, [facility] [address] [id number] [address] [place] [address], [place] [address] Sep, [facility] [address] [id number] [address] [place] [address], [place] [address] 10 Sep, 2013 [facility] [address] [id number] [address] [place] [address], [place] [address] Sep, 2013 [facility] [address] [id number] [address] [place] [address], [place] [address] Sep, 2013 [facility] [address] [id number] [address] [place] [address], [place] [address] Sep, 2013 [facility] [address] [id number] [address] [place] [address], [place] [address] Sep, 2013 [facility] [address] [id number] [address] [place] [address], [place] [address] Sep, [facility] [address] [id number] [address] [place] [address], [place] [address] Sep, [facility] [address] [id number] [address] [place] [address], [place] [address] Sep, 2013 [facility] [address] [id number] [address] [place] [address], [place] [address] Sep, [facility] [address] [id number] [address] [place] [address], [place] [address] Sep, [facility] [address] [id number] [address] [place] [address], [place] [address] Aug, [facility] [address] [id number] [address] [place] [address], [place] [address] Aug, [facility] [address] [id number] [address] [place] [address], [place] [address] Jul, [facility] [address] [id number] [address] [place] [address], [place] [address] Jul, [facility] [address] [id number] [address] [place] [address], [place] [address] Jun, [facility] [address] [id number] [address] [place] [address], [place] [address] Jun, [facility] [address] [id number] [address] [place] [address], [place] [address] May, [facility] [address] [id number] [address] [place] [address], [place] [address] Apr, [facility] [address] [id number] [address] [place] [address], [place] [address] Mar, [facility] [address] [id number] [address] [place] [address], [place] [address] Jan, [facility] [address] [id number] [address] [place] [address], [place] [address] December, [facility] [address] [id number] [address] [place] [address], [place] [address] December, [facility] [address] [id number] [address] [place] [address], [place] [address] Oct, [facility] [address] [id number] [address] [place] [address], [place] [address] Oct, [facility] [address] [id number] [address] [place] [address], [place] [address] Sep, [facility] [address] [id number] [address] [place] [address], [place] [address] Aug, [facility] [address] [id number] [address] [place] [address], [place] [address] Aug, [facility] [address] [id number] [address] [place] [address], [place] [address] Jul, [facility] [address] [id number] [address] [place] [address], [place] [address] Jul, [facility] [address] [id number] [address] [place] [address], [place] [address] Mar, [facility] [address] [id number] [address] [place] [address], [place] [address] Mar, [facility] [address] [id number] [address] [place] [address], [place] [address] Feb, [facility] [address] [id number] [address] [place] [address], [place] [address] Feb, [facility] [address] [id number] [address] [place] [address], [place] [address] Feb, [facility] [address] [id number] [address] [place] [address], [place] [address] Jan, [facility] [address] [id number] [address] [place] [address], [place] [address] Nov, [facility] [address] [id number] [address] [place] [address], [place] [address] Sep, [facility] [address] [id number] [address] [place] [address], [place] [address] Sep, [facility] [address] [id number] [address] [place] [address], [place] [address] Sep, [facility] [address] [id number] [address] [place] [address], [place] [address] Aug, [facility] [address] [id number] [address] [place] [address], [place] [address] Aug, [facility] [address] [id number] [address] [place] [address], [place] [address] Aug, [facility] [address] [id number] [address] [place] [address], [place] [address] Jun, [facility] [address] [id number] [address] [place] [address], [place] [address] Jun, [facility] [address] [id number] [address] [place] [address], [place] [address] Jun, [facility] [address] [id number] [address] [place] [address] Jun, [facility] [address] [id number] [address] [place] [id number] May, [facility] [address] [id number] [address] [place] [id number] May, [facility] [address] [id number] [address] [place] [id number] May, [facility] [address] [id number] [address] [place] [id number] May, [facility] [address] [id number] [address] [place] [id number] Jun, [facility] [address] [id number] [address] [place] [id number] December, [facility] [address] [id number] [address] [place] [id number] May, IMMUNIZATIONS No Known Immunizations SOCIAL HISTORY Never Assessed REASON FOR VISIT Refill request PLAN OF CARE VITAL SIGNS MEDICATIONS Medication Instructions Dosage Frequency Start Date End Date Duration S tatus Topamax 50 MG Orally 2 times a day 1 [...]
--- OUTSIDE RECORDS SUMMARY | 2020-03-17 19:23 | XMS REPORT ---
Author Author Ann RAMOS Organization [facility] Address [address] [place] [address] Care Team Providers Care Home Appliances Mechanic Name Role Phone RACHEL VICTOR M Unavailable PROBLEMS Type Condition ICD9-CM Code [id number] Code Onset Dates Condition S tatus SNOMED Code Problem Perimenopausal N95.1 Active 30747 [id number] Problem HTN (hypertension) 401.9 Active 3 2946491 Problem Vitamin D deficiency E55.9 Active 86766618 Problem Carpal tunnel syndrome, bilateral G56.03 Active [id number] Problem Chronic migraine G43.709 Active 377 12685 Problem Chronic tension-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, 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 Active 787174244 Problem Migraine without aura and without status migrain osus, not intractable G43.009 Active 648968507 Problem Iron deficiency anemia, unspecified iron deficiency an emia type D50.9 Active 69900291 Problem Seasonal allergic rhinitis, unspecified allergic rhinitis trigger J30.2 Active 380696546 ALLERGIES Substance Reaction Event Type Date Status Hydrocodone-Acetaminophen nausea and vomiting Drug Allergy Mar, Active ENCOUNTERS Encounter Location Date Diagnosis [facility] [address] [facility] [id number] [address] [place] [phone] Nov, [facility] [place] [facility] [address] [facility] [id number] [address] [place] [phone] Nov, [facility] [address] [facility] [id number] [address] [place] [phone] Oct, [facility] [address] [place] [id number] [address] [place] [phone] Sep, Carpal tunnel syndrome, bila teral G56.03 [facility] [address] [facility] [id number] [address] [place] [phone] Sep, Chronic migraine G43.709 [facility] [address] [facility] [id number] [address] [place] [phone] Aug, [facility] [address] [facility] [id number] [address] [place] [phone] Jul, Seasonal allergic rhinitis, unspecified allergic rhinitis trigger J30.2 [facility] [address] [facility] [id number] [address] [place] [phone] Jul, Seasonal allergic rhinitis, unspecified allergic rhinitis trigger J30.2 [facility] [address] [facility] [id number] [address] [place] [phone] Jul, Chronic migraine G43.709 [facility] [address] [facility] [id number] [address] [place] [phone] Jun, [facility] [place] [facility] [address] [facility] [id number] [place] [id number] May, Dental caries K02.9 [facility] [id number] [place] [phone] May, Chronic migraine G43.709 [facility] [address] [address] Apr, Chronic migraine G43.709 ; I yvette deficiency anemia, unspecified iron deficiency anemia type D50.9 ; Perimenopausal N95.1 and Vitamin D deficiency E55.9 [facility] [address] [facility] [id number] [address] [place] [phone] Mar, [facility] [address] [facility] [id number] [address] [place] [phone] Mar, Seasonal allergic rhinitis, unspecified allergic rhinitis trigger J30.2 [facility] [address] [facility] [id number] [address] [place] [phone] Mar, Chronic migraine G43.709 [facility] [address] [facility] [id number] [address] [place] [phone] Mar, [facility] [address] [id number] [address] [place] [phone] Mar, Chronic migraine G43.709 ; I rregular menses N92.6 ; Iron deficiency anemia, unspecified iron deficiency anemia type D50.9 and General medical exam Z00.00 [facility] [address] [id number] [address] [place] [phone] Mar, Chronic migraine G43.709 ; I yvette deficiency anemia, unspecified iron deficiency anemia type D50.9 ; Irregular menses N92.6 and General medical exam Z00.00 [facility] [place] [facility] [id number] [place] [id number] Feb, Dental examination Z01.20 [facility] [address] [id number] [address] [place] [phone] Feb, Chronic tension-type headach e, 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 and Seasonal allergic rhinitis, unspecified allergic rhinitis trigger J30.2 [facility] [address] [id number] [address] [place] [phone] Feb, [facility] [address] [id number] [address] [place] [phone] Jan, Seasonal allergic rhinitis, unspecified allergic rhinitis trigger J30.2 [facility] [address] [id number] [address] [place] [phone] December, Chronic tension-type headach e, 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 [facility] [place] [facility] [address] [id number] [address] [place] [address] [id number] December, Dental examination Z01.20 [facility] [address] [id number] [address] [place] [phone] December, [facility] [address] [facility] [id number] [address] [place] [phone] Oct, [facility] [address] [id number] [address] [place] [phone] Oct, [facility] [address] [facility] [id number] [address] [place] [phone] Oct, Sore throat J02.9 and Season al allergic rhinitis, unspecified allergic rhinitis trigger J30.2 [facility] [address] [facility] [id number] [address] [place] [phone] Oct, [facility] [address] [facility] [id number] [address] [place] [phone] Sep, [facility] [address] [place] [id number] [address] [place] [phone] Aug, Menstrual periods irregular N92.6 ; Chronic tension-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, 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 ; Acute upper respiratory infection, unspecified J06.9 and Other viral agents as the cause of diseases classified elsewhere B97.89 [facility] [address] [place] [id number] [address] [place] [phone] Jul, [facility] [address] [place] [id number] [address] [place] [phone] Jul, [facility] [address] [place] [id number] [address] [place] [phone] Jul, Migraine without aura and wi thout status migrainosus, not intractable G43.009 [facility] [address] [place] [id number] [address] [place] [phone] Jun, [facility] [address] [place] [id number] [address] [place] [phone] May, Migraine without aura and wi thout status migrainosus, not intractable G43.009 [facility] [address] [facility] [id number] [address] [place] [phone] May, [facility] [address] [place] [id number] [address] [place] [phone] May, [facility] [place] [facility] [address] [id number] [address] [place] [address] [phone] Mar, Dental examination Z01.20 [facility] [address] [place] [phone] Mar, [facility] [address] [id number] [address] [place] [phone] Jan, Onychomycosis B35.1 [facility] [address] [id number] [address] [place] [phone] Jan, [facility] [address] [id number] [address] [place] [phone] December, Dental caries K02.9 [facility] [address] [id number] [address] [place] [phone] Nov, Dental examination Z01.20 [facility] [address] [id number] [address] [place] [phone] 09 Oct, 2015 Dental examination Z01.20 [facility] [address] [id number] [address] [place] [phone] Oct, [facility] [address] [id number] [address] [place] [phone] Oct, Migraine G43.909 [facility] [address] [id number] [address] [place] [phone] Sep, Onychomycosis B35.1 [facility] [address] [id number] [address] [place] [phone] Sep, [facility] [address] [id number] [address] [place] [phone] Aug, [facility] [address] [id number] [address] [place] [phone] Jul, [facility] [address] [id number] [address] [place] [phone] 16 Apr, 2015 [facility] [address] [id number] [address] [place] [phone] 10 Apr, 2015 Right anterior knee pain 719 .46 [facility] [address] [id number] [address] [place] [phone] Mar, Tendonitis 726.90 ; HTN (hyp ertension) 401.9 ; Tremors of nervous system 781.0 and Anxiety 300.00 [facility] [address] [id number] [address] [place] [phone] Mar, Thrush 112.0 [facility] [address] [place] [id number] [address] [place] [phone] Feb, [facility] [address] [place] [id number] [place] [phone] Feb, Tremors of nervous system 78 1.0 and Carpal tunnel syndrome 354.0 [facility] [address] [place] [id number] [place] [phone] Jan, Anxiety 300.00 ; Tremors of nervous system 781.0 and Tendonitis 726.90 [facility] [address] [place] [id number] [place] [phone] Jan, Anxiety 300.00 ; Tremors of nervous system 781.0 and Tendonitis 726.90 [facility] [address] [place] [id number] [place] [phone] Jan, Sinusitis 473.9 [facility] [address] [place] [id number] [address] [place] [phone] December, [facility] [address] [place] [id number] [address] [place] [phone] December, [facility] [address] [place] [id number] [address] [place] [phone] December, [facility] [address] [phone] December, [facility] [address] [place] [id number] [address] [place] [phone] December, [facility] [address] [place] [id number] [address] [place] [phone] Nov, [facility] [address] [id number] [address] [place] [address], [place] [address] 13 Nov, 2014 [facility] [address] [id number] [address] [place] [address], [place] [address] Sep, 2014 [facility] [address] [id number] [address] [place] [address], [place] [address] Sep, 2014 [facility] [address] [id number] [address] [place] [address], [place] [address] Sep, 2014 [facility] [address] [id number] [address] [place] [address], [place] [address] Sep, 2014 [facility] [address] [id number] [address] [place] [address], [place] [address] Jul, [facility] [address] [id number] [address] [place] [address], [place] [address] Jul, [facility] [address] [id number] [address] [place] [address], [place] [address] Jul, [facility] [address] [id number] [address] [place] [address], [place] [address] Jul, [facility] [address] [id number] [address] [place] [address], [place] [address] Jul, [facility] [address] [id number] [address] [place] [address], [place] [address] Jul, [facility] [address] [id number] [address] [place] [address], [place] [address] Jul, [facility] [address] [id number] [address] [place] [address], [place] [address] Jul, [facility] [address] [id number] [address] [place] [address], [place] [address] Jul, [facility] [address] [id number] [address] [place] [address], [place] [address] Jul, [facility] [address] [id number] [address] [place] [address], [place] [address] 28 Jun, 2014 [facility] [address] [id number] [address] [place] [address], [place] [address] Jun, [facility] [address] [id number] [address] [place] [address], [place] [address] Jun, [facility] [address] [id number] [address] [place] [address], [place] [address] Jun, [facility] [address] [id number] [address] [place] [address], [place] [address] May, [facility] [address] [id number] [address] [place] [address], [place] [address] 28 May, 2014 [facility] [address] [id number] [address] [place] [address], [place] [address] 14 May, 2014 [facility] [address] [id number] [address] [place] [address], [place] [address] 14 May, 2014 [facility] [address] [id number] [address] [place] [address], [place] [address] 17 Sep, 2013 [facility] [address] [id number] [address] [place] [address], [place] [address] 17 Sep, 2013 [facility] [address] [id number] [address] [place] [address], [place] [address] 17 Sep, 2013 [facility] [address] [id number] [address] [place] [address], [place] [address] 17 Sep, 2013 [facility] [address] [id number] [address] [place] [address], [place] [address] 16 Sep, 2013 [facility] [address] [id number] [address] [place] [address], [place] [address] 16 Sep, 2013 [facility] [address] [id number] [address] [place] [address], [place] [address] 03 Sep, 2013 [facility] [address] [id number] [address] [place] [address], [place] [address] Apr, [facility] [address] [id number] [address] [place] [address], [place] [address] Mar, [facility] [address] [id number] [address] [place] [address], [place] [address] Mar, [facility] [address] [id number] [address] [place] [address], [place] [address] Feb, [facility] [address] [id number] [address] [place] [address], [place] [address] Feb, [facility] [address] [id number] [address] [place] [address], [place] [address] Feb, [facility] [address] [id number] [address] [place] [address], [place] [address] Feb, [facility] [address] [id number] [address] [place] [address], [place] [address] Jan, [facility] [address] [id number] [address] [place] [address], [place] [address] Jan, [facility] [address] [id number] [address] [place] [address], [place] [address] Jan, [facility] [address] [id number] [address] [place] [address], [place] [address] Jan, [facility] [address] [id number] [address] [place] [address], [place] [address] Jan, [facility] [address] [id number] [address] [place] [address], [place] [address] Jan, [facility] [address] [id number] [address] [place] [address], [place] [address] December, [facility] [address] [id number] [address] [place] [address], [place] [address] December, [facility] [address] [id number] [address] [place] [address], [place] [address] December, [facility] [address] [id number] [address] [place] [address], [place] [address] December, [facility] [address] [id number] [facility] [place] [address] December, [facility] [address] [id number] [address] [place] [address], [place] [address] Nov, [facility] [address] [id number] [address] [place] [address], [place] [address] Nov, [facility] [address] [id number] [address] [place] [address], [place] [address] Nov, [facility] [address] [id number] [address] [place] [address], [place] [address] Nov, [facility] [address] [id number] [address] [place] [address], [place] [address] Nov, [facility] [address] [id number] [address] [place] [address], [place] [address] Nov, [facility] [address] [id number] [address] [place] [address], [place] [address] Oct, [facility] [address] [id number] [address] [place] [address], [place] [address] Oct, [facility] [address] [id number] [address] [place] [address], [place] [address] Oct, [facility] [address] [id number] [address] [place] [address], [place] [address] Oct, [facility] [address] [id number] [address] [place] [address], [place] [address] Sep, [facility] [address] [id number] [address] [place] [address], [place] [address] Sep, [facility] [address] [id number] [address] [place] [address], [place] [address] Sep, [facility] [address] [id number] [address] [place] [address], [place] [address] Sep, [facility] [address] [id number] [address] [place] [address], [place] [address] Sep, [facility] [address] [id number] [address] [place] [address], [place] [address] Sep, 2013 [facility] [address] [id number] [address] [place] [address], [place] [address] Sep, 2013 [facility] [address] [id number] [address] [place] [address], [place] [address] Sep, 2013 [facility] [address] [id number] [address] [place] [address], [place] [address] Sep, 2013 [facility] [address] [id number] [address] [place] [address], [place] [address] Sep, [facility] [address] [id number] [address] [place] [address], [place] [address] Sep, [facility] [address] [id number] [address] [place] [address], [place] [address] Sep, [facility] [address] [id number] [address] [place] [address], [place] [address] Sep, [facility] [address] [id number] [address] [place] [address], [place] [address] Aug, [facility] [address] [id number] [address] [place] [address], [place] [address] Aug, [facility] [address] [id number] [address] [place] [id number] Jul, [facility] [address] [id number] [address] [place] [address], [place] [address] Jul, [facility] [address] [id number] [address] [place] [address], [place] [address] Jun, [facility] [address] [id number] [address] [place] [address], [place] [address] Jun, [facility] [address] [id number] [address] [place] [address], [place] [id number] 08 May, 2013 [facility] [address] [id number] [address] [place] [address], [place] [id number] 10 Apr, 2013 [facility] [address] [id number] [address] [place] [address], [place] [id number] Mar, [facility] [address] [id number] [address] [place] [address], [place] [address] Jan, [facility] [address] [id number] [address] [place] [address], [place] [address] December, [facility] [address] [id number] [address] [place] [address], [place] [address] December, [facility] [address] [id number] [address] [place] [address], [place] [id number] Oct, [facility] [address] [id number] [address] [place] [address], [place] [address] Oct, [facility] [address] [id number] [address] [place] [address], [place] [address] Sep, [facility] [address] [id number] [address] [place] [address], [place] [address] Aug, [facility] [address] [id number] [address] [place] [address], [place] [address] Aug, [facility] [address] [id number] [address] [place] [address], [place] [address] Jul, [facility] [address] [id number] [address] [place] [address], [place] [id number] Jul, [facility] [address] [id number] [address] [place] [address], [place] [id number] Mar, [facility] [address] [id number] [address] [place] [address], [place] [address] Mar, [facility] [address] [id number] [address] [place] [address], [place] [address] Feb, [facility] [address] [id number] [address] [place] [address], [place] [address] Feb, [facility] [address] [id number] [address] [place] [address], [place] [id number] Feb, [facility] [address] [id number] [address] [place] [address], [place] [address] Jan, [facility] [address] [id number] [address] [place] [address], [place] [address] Nov, [facility] [address] [id number] [address] [place] [address], [place] [address] Sep, [facility] [address] [id number] [address] [place] [address], [place] [address] Sep, [facility] [address] [id number] [address] [place] [address], [place] [id number] Sep, [facility] [address] [id number] [address] [place] [address], [place] [address] Aug, [facility] [address] [id number] [address] [place] [address], [place] [id number] Aug, [facility] [address] [id number] [address] [place] [address], [place] [phone] Aug, [facility] [address] [id number] [address] [place] [address], [place] [phone] Jun, [facility] [address] [id number] [address] [place] [address], [place] [phone] Jun, [facility] [address] [id number] [address] [place] [address], [place] [phone] Jun, [facility] [address] [id number] [address] [place] [address], [place] [phone] Jun, [facility] [address] [id number] [address] [place] [address], [place] [phone] May, [facility] [address] [id number] [address] [place] [id number] May, [facility] [address] [facility] [id number] [address] [place] [phone] May, [facility] [address] [facility] [id number] [address] [place] [phone] May, [facility] [address] [facility] [id number] [address] [place] [phone] Jun, [facility] [address] [facility] [id number] [address] [place] [phone] December, [facility] [address] [facility] [id number] [address] [place] [phone] May, IMMUNIZATIONS No Known Immunizations SOCIAL HISTORY Never Assessed REASON FOR VISIT Transition of Care-still trying to figure out why she is still having migraines all the time-Balwinder PLAN OF CARE Activity Details Follow Up 4 weeks or pending consult Abril olivo:KENDY VITAL SIGNS Height 64 in 2017-03-08 Weight 145.3 lbs 2017-03-08 Temperature 97.0 degrees Fahrenheit 2017-03-08 Heart Rate 70 bpm 2017-03-08 Respiratory Rate 18 2017-03-08 Oximetry 100 % 2017-03-08 BMI 24.94 kg/m2 2017-03-08 Blood pressure systolic 134 mmHg 2017-03-08 Blood pressure diastolic 82 mmHg 2017-03-08 MEDICATIONS Medication Instructions Dosage Frequency Start Date End Date Duration S tatus Topamax 25 MG Orally daily x 7 days then 1 bid 1 tablet Mar, 30 day(s) Active Hlqvisxklw-AYDK-Jzxflhel 50-325-40 MG Orally every 4 hrs 1 tablet a s needed 4h Aug, Active Zyrtec Allergy Active Ferrous Sulfate 325 mg (65 mg iron) 1 Ta blet by Oral route 2 times per day give with food Apr, Active Propranolol HCl 60 MG Orally Twice a day 1 tablet 12h Active Flonase 50 mcg/actuation Nasally 1spray(s) intranasally once a day take 1 sprays by Nasal route 1 time per day in each nostril Sep, 30 days Active Promethazine HCl 25 MG Orally with severe migraine 1 tablet as need ed Mar, Active SudoGest 60 MG Orally every 6 hrs 1 tablet as needed 6h 30 days Active Neurontin 100 MG Orally Three times a day 1 capsule 8h Active Proventil HFA 108 (90 Base) MCG/ACT INHA LE TWO PUFFS BY MOUTH EVERY 6 HOURS NEEDED FOR SHORTNESS OF BREATH/COUGH 25 Active Xanax 1 MG Orally Twice a day 1 tablet 12h December, 28 d ays Active RESULTS No Results PROCEDURES Procedure Date Ordered Result Body Site MEASURE BLOOD OXYGEN LEVEL Mar 08, 2017 INSTRUCTIONS MEDICATIONS ADMINISTERED No Known Medications [...]
--- OUTSIDE RECORDS SUMMARY | 2020-03-17 19:23 | XMS REPORT ---
Author Author Ann MCHUGH Organization [facility] Address [address] [place] [address] Care Team Providers Care Coat Repair Inspector Name Role Phone JEISONRAFAELA Unavailable PROBLEMS Type Condition ICD9-CM Code RIM06-HA Code Onset Dates Condition S tatus SNOMED Code Problem Insomnia, unspecified 780.52 Active 828684850 Problem Irregular menstrual cycle 626.4 Acti ve 92963612 Problem Unspecified spontaneous without mention of complication 634.90 Active 66518367 Problem Family history of other cardiovascular diseases V17.49 Active 410926246 Problem Cellulitis and abscess of unspecified site 682.9 Active 902784464 Problem Family history of diabetes mellitus V18.0 Active 816386792 Problem Other abnormal blood chemistry 790.6 Active 333043977 Problem Procreative counseling and advice using natural family planning V26.41 Active 794833592 Problem Unspecified iron deficiency anemia 280.9 Active 34660824 Problem HTN (hypertension) 401.9 Active 3 4437435 Problem Unspecified episodic mood disorder 296.90 Active 369739422 Problem Chronic migraine G43.709 Active 377 18346 Problem Iron deficiency anemia, unspecified iron deficiency an emia type D50.9 Active 47795424 Problem Lateral epicondylitis of elbow 726.[address] of occurrence, home E849.0 Acti ve 51536856 Problem Unspecified sleep disturbance 780.50 Active 28026420 Problem Chronic tension-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, 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 Active 995660122 Problem Migraine without aura and without status migrain osus, not intractable G43.009 Active 095542355 Problem Irregular menses N92.6 Active 801 87688 Problem Seasonal allergic rhinitis, unspecified allergic rhinitis trigger J30.2 Active 381202282 Problem Need for prophylactic vaccination and inoculation, Influen za V04.81 Active 419253798 Problem Unspecified constipation 564.00 Activ e 11933873 Problem Influenza with other respiratory manifestations 487.1 Active 4692142 Problem Nausea alone 787.02 Active 6293717 07 Problem Migraine, unspecified withou t mention of intractable migraine without mention of status migrainosus 346.90 Active 54866884 Problem Unspecified disorders of bursae and tendons in [facility] 726.10 Active 61641830 Problem Screening examination for venereal disease V74.5 Active 436845126 Problem Screening for malignant neoplasm of the cervix V76.2 Active 168995086 ALLERGIES Unknown Allergies SOCIAL HISTORY No smoking [...]
--- OUTSIDE RECORDS SUMMARY | 2020-03-17 19:24 | XMS REPORT | Continuity of Care Document ---
Demographics Preferred Language Unknown Marital Status Unknown Scientology Affiliation Unknown Race Unknown Ethnic Group Unknown Author Organization Unknown Address Unknown Phone Unavailable Allergies Active Description Code Type Severity Reaction Onset Reported/Identified Relationship to Patient Clinical Status Yes No Known Drug Allergies [id number] Drug Allergy Unknown N/A 12/30/2012 Yes hydrocodone [id number] Drug Aller gy Moderate vomitting 01/23/2017 Medications There is no data. Problems Date Dx Coded Attending Type Code Diagnosis Diagnosed By 06/05/2009 465.9 UPPE R RESPIRATORY INFECTION 06/05/2009 465.9 UPPE R RESPIRATORY INFECTION 06/05/2009 BAZAN DO TONY K 465.9 UPPER RESPIRATORY INFECTION 06/05/2009 465.9 UPPE R RESPIRATORY INFECTION 06/05/2009 465.9 UPPE R RESPIRATORY INFECTION 06/05/2009 BAZAN DO TONY K 465.9 UPPER RESPIRATORY INFECTION 06/05/2009 BENI MARMOLEJO TONY K 465.9 UPPER RESPIRATORY INFECTION 06/05/2009 RAFAELA MCHUGH APRN 46 5.9 UPPER RESPIRATORY INFECTION 06/05/2009 BAZAN DO TONY K 465.9 UPPER RESPIRATORY INFECTION 06/05/2009 IRENE FLORY MANUEL R 465.9 UPPER RESPIRATORY INFECTION 06/05/2009 RAFAELA MCHUGH APRN 46 5.9 UPPER RESPIRATORY INFECTION 06/05/2009 WHITE HONEY PURCELL D 46 5.9 UPPER RESPIRATORY INFECTION 06/05/2009 RAFAELA MCHUGH APRN 46 5.9 UPPER RESPIRATORY INFECTION 06/05/2009 BENI MARMOLEJO TONY K 465.9 UPPER RESPIRATORY INFECTION 06/05/2009 GERIJudson RUTH LUCIE A 46 5.9 UPPER RESPIRATORY INFECTION 06/05/2009 BAZAN DO TONY K 465.9 UPPER RESPIRATORY INFECTION 06/05/2009 DAVIDSONJOSE CURTIS DDS 46 5.9 UPPER RESPIRATORY INFECTION 06/05/2009 RAFAELA MCHUGH APRN 46 5.9 UPPER RESPIRATORY INFECTION 06/05/2009 RAFAELA MCHUGH APRN 46 5.9 UPPER RESPIRATORY INFECTION 06/05/2009 BAZAN DO TONY K 465.9 UPPER RESPIRATORY INFECTION 06/05/2009 MADL VICTOR M RUTH L 465 .9 UPPER RESPIRATORY INFECTION 06/05/2009 RAFAELA MCHUGH APRN 46 5.9 UPPER RESPIRATORY INFECTION 06/05/2009 JEANNINE FRANCO APRNYL A 465.9 UPPER RESPIRATORY INFECTION 06/05/2009 RAFAELA MCHUGH APRN 46 5.9 UPPER RESPIRATORY INFECTION 06/05/2009 FLEX RUTH ANDERSON R 465.9 UPPER RESPIRATORY INFECTION 12/17/2009 780.4 DIZZ INESS AND GIDDINESS 12/17/2009 780.4 DIZZ INESS AND GIDDINESS 12/17/2009 BAZAN DO, TONY K 780.4 DIZZINESS AND GIDDINESS 12/17/2009 780.4 DIZZ INESS AND GIDDINESS 12/17/2009 780.4 DIZZ INESS AND GIDDINESS 12/17/2009 BAZAN DO, TONY K 780.4 DIZZINESS AND GIDDINESS 12/17/2009 BAZAN DO, TONY K 780.4 DIZZINESS AND GIDDINESS 12/17/2009 RAFAELA MCHUGH APRN 78 0.4 DIZZINESS AND GIDDINESS 12/17/2009 BAZAN DO, TONY K 780.4 DIZZINESS AND GIDDINESS 12/17/2009 IRENE RUTH MANUEL R 780.4 DIZZINESS AND GIDDINESS 12/17/2009 RAFAELA MCHUGH APRN 78 0.4 DIZZINESS AND GIDDINESS 12/17/2009 WHITE DDS, HONEY D 78 0.4 DIZZINESS AND GIDDINESS 12/17/2009 RAFAELA MCHUGH APRN 78 0.4 DIZZINESS AND GIDDINESS 12/17/2009 BAZAN DO, TONY K 780.4 DIZZINESS AND GIDDINESS 12/17/2009 GERIJudson RUTH LUCIE A 78 0.4 DIZZINESS AND GIDDINESS 12/17/2009 BAZAN DO, TONY K 780.4 DIZZINESS AND GIDDINESS 12/17/2009 DAVIDSON DDS, JOSE 78 0.4 DIZZINESS AND GIDDINESS 12/17/2009 RAFAELA MCHUGH APRN T 78 0.4 DIZZINESS AND GIDDINESS 12/17/2009 RAFAELA MCHUGH APRN 78 0.4 DIZZINESS AND GIDDINESS 12/17/2009 BAZAN DO, TONY K 780.4 DIZZINESS AND GIDDINESS 12/17/2009 VICTOR M RAMOS APRN L 780 .4 DIZZINESS AND GIDDINESS 12/17/2009 RAFAELA MCHUGH APRN T 78 0.4 DIZZINESS AND GIDDINESS 12/17/2009 JULIA FRANCO APRN 780.4 DIZZINESS AND GIDDINESS 12/17/2009 RAFAELA MCHUGH APRN 78 0.4 DIZZINESS AND GIDDINESS 12/17/2009 ANDERSON MCCORD APRN 780.4 DIZZINESS AND GIDDINESS 03/05/2010 719.41 CHEPE N IN JOINT INVOLVING SHOULDER REGION 03/05/2010 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, OTHER SPECIFIED DISORDERS 03/05/2010 719.41 CHEPE N IN JOINT INVOLVING SHOULDER REGION 03/05/2010 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, OTHER SPECIFIED DISORDERS 03/05/2010 EDNA BAZAN DOA K 719.41 PAIN IN JOINT INVOLVING SHOULDER REGION 03/05/2010 BAZAN DO TONY K 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, OTHER SPECIFIED DISORDERS 03/05/2010 719.41 CHEPE N IN JOINT INVOLVING SHOULDER REGION 03/05/2010 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, OTHER SPECIFIED DISORDERS 03/05/2010 719.41 CHEPE N IN JOINT INVOLVING SHOULDER REGION 03/05/2010 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, OTHER SPECIFIED DISORDERS 03/05/2010 BENI MARMOLEJO TONY K 719.41 PAIN IN JOINT INVOLVING SHOULDER REGION 03/05/2010 BAZAN DO TONY K 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, OTHER SPECIFIED DISORDERS 03/05/2010 BAZAN DO TONY K 719.41 PAIN IN JOINT INVOLVING SHOULDER REGION 03/05/2010 BENI MARMOLEJO TONY K 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, OTHER SPECIFIED DISORDERS 03/05/2010 RAFAELA MCHUGH APRN 719.41 PAIN IN JOINT INVOLVING SHOULDER REGION 03/05/2010 RAFAELA MCHUGH APRN 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 CUFF SYNDROME OF SHOULDER AND AL LIED DISORDERS, OTHER SPECIFIED DISORDERS 03/05/2010 BAZAN DO TONY K 719.41 PAIN IN JOINT INVOLVING SHOULDER REGION 03/05/2010 BENI MARMOLEJO TONY K 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, OTHER SPECIFIED DISORDERS 03/05/2010 MANUEL BONILLA APRN 719.41 PAIN IN JOINT INVOLVING SHOULDER REGION 03/05/2010 MANUEL BONILLA APRN 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 CUFF SYNDROME OF SHOULDER AND AL LIED DISORDERS, OTHER SPECIFIED DISORDERS 03/05/2010 RAFAELA MCHUGH APRN 719.41 PAIN IN JOINT INVOLVING SHOULDER REGION 03/05/2010 RAFAELA MCHUGH APRN 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 CUFF SYNDROME OF SHOULDER AND AL LIED DISORDERS, OTHER SPECIFIED DISORDERS 03/05/2010 WHITE DDS, HONEY D 719.41 PAIN IN JOINT INVOLVING SHOULDER REGION 03/05/2010 WHITE DDS, HONEY D 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 CUFF SYNDROME OF SHOULDER AND AL LIED DISORDERS, OTHER SPECIFIED DISORDERS 03/05/2010 RAFAELA MCHUGH APRN 719.41 PAIN IN JOINT INVOLVING SHOULDER REGION 03/05/2010 RAFAELA MCHUGH APRN 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 CUFF SYNDROME OF SHOULDER AND AL LIED DISORDERS, OTHER SPECIFIED DISORDERS 03/05/2010 TONY BAZAN DO 719.41 PAIN IN JOINT INVOLVING SHOULDER REGION 03/05/2010 TONY BAZAN DO 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, OTHER SPECIFIED DISORDERS 03/05/2010 LUCIE NEVAREZ APRN A 719.41 PAIN IN JOINT INVOLVING SHOULDER REGION 03/05/2010 LUCIE NEVAREZ APRN A 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 CUFF SYNDROME OF SHOULDER AND AL LIED DISORDERS, OTHER SPECIFIED DISORDERS 03/05/2010 TONY BAZAN DO K 719.41 PAIN IN JOINT INVOLVING SHOULDER REGION 03/05/2010 EDNA BAZAN DOA K 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, OTHER SPECIFIED DISORDERS 03/05/2010 LETY RODRIGUEZSJOSE 719.41 PAIN IN JOINT INVOLVING SHOULDER REGION 03/05/2010 DAVIDSON DDSJOSE 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 CUFF SYNDROME OF SHOULDER AND AL LIED DISORDERS, OTHER SPECIFIED DISORDERS 03/05/2010 RAFAELA MCHUGH APRN 719.41 PAIN IN JOINT INVOLVING SHOULDER REGION 03/05/2010 RAFAELA MCHUGH APRN 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 CUFF SYNDROME OF SHOULDER AND AL LIED DISORDERS, OTHER SPECIFIED DISORDERS 03/05/2010 RAFAELA MCHUGH APRN 719.41 PAIN IN JOINT INVOLVING SHOULDER REGION 03/05/2010 RAFAELA MCHUGH APRN 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 CUFF SYNDROME OF SHOULDER AND AL LIED DISORDERS, OTHER SPECIFIED DISORDERS 03/05/2010 EDNA BAZAN DOA Jessica 719.41 PAIN IN JOINT INVOLVING SHOULDER REGION 03/05/2010 EDNA BAZAN DOA K 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, OTHER SPECIFIED DISORDERS 03/05/2010 VICTOR M RAMOS APRN L 719 .41 PAIN IN JOINT INVOLVING SHOULDER REGION 03/05/2010 VICTOR M RAMOS APRN L 726 .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, OTHER SPECIFIED DISORDERS 03/05/2010 RAFAELA MCHUGH APRN T 719.41 PAIN IN JOINT INVOLVING SHOULDER REGION 03/05/2010 RAFAELA MCHUGH APRN T 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 CUFF SYNDROME OF SHOULDER AND AL LIED DISORDERS, OTHER SPECIFIED DISORDERS 03/05/2010 JULIA FRANCO APRN A 719.41 PAIN IN JOINT INVOLVING SHOULDER REGION 03/05/2010 JEANNINE FRANCO APRNYL A 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 CUFF SYNDROME OF SHOULDER AND AL LIED DISORDERS, OTHER SPECIFIED DISORDERS 03/05/2010 RAFAELA MCHUGH APRN T 719.41 PAIN IN JOINT INVOLVING SHOULDER REGION 03/05/2010 RAFAELA MCHUGH APRN T 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 CUFF SYNDROME OF SHOULDER AND AL LIED DISORDERS, OTHER SPECIFIED DISORDERS 03/05/2010 ANDERSON MCCORD APRN R 719.41 PAIN IN JOINT INVOLVING SHOULDER REGION 03/05/2010 ANDERSON MCCORD APRN R 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 CUFF SYNDROME OF SHOULDER AND AL LIED DISORDERS, OTHER SPECIFIED DISORDERS 07/03/2010 460 ACUTE NASOPHARYNGITIS (COMMON COLD) 07/03/2010 493.90 AST HMA UNSPECIFIED 07/03/2010 460 ACUTE NASOPHARYNGITIS (COMMON COLD) 07/03/2010 493.90 AST HMA UNSPECIFIED 07/03/2010 TONY BAZAN DO 460 ACUTE NASOPHARYNGITIS (COMMON COLD) 07/03/2010 TONY BAZAN DO 493.90 ASTHMA UNSPECIFIED 07/03/2010 460 ACUTE NASOPHARYNGITIS (COMMON COLD) 07/03/2010 493.90 AST HMA UNSPECIFIED 07/03/2010 460 ACUTE NASOPHARYNGITIS (COMMON COLD) 07/03/2010 493.90 AST HMA UNSPECIFIED 07/03/2010 TONY BAZAN DO 460 ACUTE NASOPHARYNGITIS (COMMON COLD) 07/03/2010 TONY BAZAN DO 493.90 ASTHMA UNSPECIFIED 07/03/2010 TONY BAZAN DO 460 ACUTE NASOPHARYNGITIS (COMMON COLD) 07/03/2010 TONY BAZAN DO 493.90 ASTHMA UNSPECIFIED 07/03/2010 RAFEALA MCHUGH APRN 46 0 ACUTE NASOPHARYNGITIS (COMMON COLD) 07/03/2010 RAFAELA MCHUGH APRN 493.90 ASTHMA UNSPECIFIED 07/03/2010 BAZAN DO, TONY K 460 ACUTE NASOPHARYNGITIS (COMMON COLD) 07/03/2010 BAZAN DO, TONY K 493.90 ASTHMA UNSPECIFIED 07/03/2010 IRENE DIRECTOR OF COLLECTIONS, MANUEL R 4 60 ACUTE NASOPHARYNGITIS (COMMON COLD) 07/03/2010 IRENE DIRECTOR OF COLLECTIONS, MANUEL R 493.90 ASTHMA UNSPECIFIED 07/03/2010 RAFAELA MCHUGH APRN 46 0 ACUTE NASOPHARYNGITIS (COMMON COLD) 07/03/2010 RAFAELA MCHUGH APRN 493.90 ASTHMA UNSPECIFIED 07/03/2010 WHITE DDS, HONEY D 46 0 ACUTE NASOPHARYNGITIS (COMMON COLD) 07/03/2010 WHITE DDS, HONEY D 493.90 ASTHMA UNSPECIFIED 07/03/2010 RAFAELA MCHUGH APRN 46 0 ACUTE NASOPHARYNGITIS (COMMON COLD) 07/03/2010 RAFAELA MCHUGH APRN 493.90 ASTHMA UNSPECIFIED 07/03/2010 BENI MARMOLEJO TONY K 460 ACUTE NASOPHARYNGITIS (COMMON COLD) 07/03/2010 BENI MARMOLEJO, TONY K 493.90 ASTHMA UNSPECIFIED 07/03/2010 GERIJudson RUTH LUCIE A 46 0 ACUTE NASOPHARYNGITIS (COMMON COLD) 07/03/2010 GERIJudson RUTH LUCIE A 493.90 ASTHMA UNSPECIFIED 07/03/2010 BAZAN DO, TONY K 460 ACUTE NASOPHARYNGITIS (COMMON COLD) 07/03/2010 BENI MARMOLEJO TONY K 493.90 ASTHMA UNSPECIFIED 07/03/2010 DAVIDSON DDS, JOSE 46 0 ACUTE NASOPHARYNGITIS (COMMON COLD) 07/03/2010 DAVIDSON DDS, JOSE 493.90 ASTHMA UNSPECIFIED 07/03/2010 RAFAELA MCHUGH APRN 46 0 ACUTE NASOPHARYNGITIS (COMMON COLD) 07/03/2010 RAFAELA MCHUGH APRN 493.90 ASTHMA UNSPECIFIED 07/03/2010 RAFAELA MCHUGH APRN 46 0 ACUTE NASOPHARYNGITIS (COMMON COLD) 07/03/2010 RAFAELA MCHUGH APRN 493.90 ASTHMA UNSPECIFIED 07/03/2010 BENI MARMOLEJO TONY K 460 ACUTE NASOPHARYNGITIS (COMMON COLD) 07/03/2010 BAZAN DO, TONY K 493.90 ASTHMA UNSPECIFIED 07/03/2010 MADL DIRECTOR OF COLLECTIONS, VICTOR M L 460 ACUTE NASOPHARYNGITIS (COMMON COLD) 07/03/2010 GERMÁNL DIRECTOR OF COLLECTIONS, VICTOR M L 493 .90 ASTHMA UNSPECIFIED 07/03/2010 RAFAELA MCHUGH APRN 46 0 ACUTE NASOPHARYNGITIS (COMMON COLD) 07/03/2010 RAFAELA MCHUGH APRN 493.90 ASTHMA UNSPECIFIED 07/03/2010 RAJOTTE DIRECTOR OF COLLECTIONS, JULIA A 460 ACUTE NASOPHARYNGITIS (COMMON COLD) 07/03/2010 RAJOTTE DIRECTOR OF COLLECTIONS, JULIA A 493.90 ASTHMA UNSPECIFIED 07/03/2010 RAFAELA MCHUGH APRN 46 0 ACUTE NASOPHARYNGITIS (COMMON COLD) 07/03/2010 RAFAELA MCHUGH APRN 493.90 ASTHMA UNSPECIFIED 07/03/2010 MARY MCCORD APRNRICIA R 460 ACUTE NASOPHARYNGITIS (COMMON COLD) 07/03/2010 DARWIN MCCORD APRNIA R 493.90 ASTHMA UNSPECIFIED 10/30/2010 461.9 ACUT E SINUSITIS UNSPECIFIED 10/30/2010 461.9 ACUT E SINUSITIS UNSPECIFIED 10/30/2010 BAZAN DO, TONY K 461.9 ACUTE SINUSITIS UNSPECIFIED 10/30/2010 461.9 ACUT E SINUSITIS UNSPECIFIED 10/30/2010 461.9 ACUT E SINUSITIS UNSPECIFIED 10/30/2010 BAZAN DO, TONY K 461.9 ACUTE SINUSITIS UNSPECIFIED 10/30/2010 BAZAN DO, TONY K 461.9 ACUTE SINUSITIS UNSPECIFIED 10/30/2010 RAFAELA MCHUGH APRN 46 1.9 ACUTE SINUSITIS UNSPECIFIED 10/30/2010 BAZAN DO, TONY K 461.9 ACUTE SINUSITIS UNSPECIFIED 10/30/2010 IRENE RUTH MANUEL R 461.9 ACUTE SINUSITIS UNSPECIFIED 10/30/2010 RAFAELA MCHUGH APRN 46 1.9 ACUTE SINUSITIS UNSPECIFIED 10/30/2010 HONEY CASTILLO DDS 46 1.9 ACUTE SINUSITIS UNSPECIFIED 10/30/2010 RAFAELA MCHUGH APRN 46 1.9 ACUTE SINUSITIS UNSPECIFIED 10/30/2010 BAZAN DO, TONY K 461.9 ACUTE SINUSITIS UNSPECIFIED 10/30/2010 GERI DIRECTOR OF COLLECTIONS, LUCIE A 46 1.9 ACUTE SINUSITIS UNSPECIFIED 10/30/2010 EDNA BAZAN DOA K 461.9 ACUTE SINUSITIS UNSPECIFIED 10/30/2010 LETY JENNIFERJOSE Rodríguez 46 1.9 ACUTE SINUSITIS UNSPECIFIED 10/30/2010 JEISON DIRECTOR OF COLLECTIONSRAFAELA Roper T 46 1.9 ACUTE SINUSITIS UNSPECIFIED 10/30/2010 JEISON DIRECTOR OF COLLECTIONSRAFAELA T 46 1.9 ACUTE SINUSITIS UNSPECIFIED 10/30/2010 EDNA BAZAN DOA K 461.9 ACUTE SINUSITIS UNSPECIFIED 10/30/2010 RACHEL DIRECTOR OF COLLECTIONS, VICTOR M L 461 .9 ACUTE SINUSITIS UNSPECIFIED 10/30/2010 JEISON DIRECTOR OF COLLECTIONSRAFAELA T 46 1.9 ACUTE SINUSITIS UNSPECIFIED 10/30/2010 SALVADOR DIRECTOR OF COLLECTIONS, JULIA A 461.9 ACUTE SINUSITIS UNSPECIFIED 10/30/2010 JEISON DIRECTOR OF COLLECTIONSRAFAELA Roper T 46 1.9 ACUTE SINUSITIS UNSPECIFIED 10/30/2010 FLEX DIRECTOR OF COLLECTIONS, ANDERSON R 461.9 ACUTE SINUSITIS UNSPECIFIED 05/25/2011 300.02 AN GEN ANXIETY 05/25/2011 307.40 SLE EP DISORDER, NONORGANIC 05/25/2011 300.02 AN GEN ANXIETY 05/25/2011 307.40 SLE EP DISORDER, NONORGANIC 05/25/2011 EDNA BAZAN DOA K 300.02 AN GEN ANXIETY 05/25/2011 EDNA BAZAN DOA K 307.40 SLEEP DISORDER, NONORGANIC 05/25/2011 300.02 AN GEN ANXIETY 05/25/2011 307.40 SLE EP DISORDER, NONORGANIC 05/25/2011 300.02 AN GEN ANXIETY 05/25/2011 307.40 SLE EP DISORDER, NONORGANIC 05/25/2011 EDNA BAZAN DOA K 300.02 AN GEN ANXIETY 05/25/2011 BENI MARMOLEJO TONY K 307.40 SLEEP DISORDER, NONORGANIC 05/25/2011 EDNA BAZAN DOA K 300.02 AN GEN ANXIETY 05/25/2011 EDNA BAZAN DOA K 307.40 SLEEP DISORDER, NONORGANIC 05/25/2011 RAFAELA MCHUGH APRN T 300.02 AN GEN ANXIETY 05/25/2011 RAFAELA MCHUGH APRN 307.40 SLEEP DISORDER, NONORGANIC 05/25/2011 EDNA BAZAN DOA K 300.02 AN GEN ANXIETY 05/25/2011 BNEI MARMOLEJO TONY K 307.40 SLEEP DISORDER, NONORGANIC 05/25/2011 IRENE RUTH MANUEL R 300.02 AN GEN ANXIETY 05/25/2011 YUSUF BONILLA APRNINA R 307.40 SLEEP DISORDER, NONORGANIC 05/25/2011 RAFAELA MCHUGH APRN 300.02 AN GEN ANXIETY 05/25/2011 RAFAELA MCHUGH APRN 307.40 SLEEP DISORDER, NONORGANIC 05/25/2011 WHITE DDS, HONEY D 300.02 AN GEN ANXIETY 05/25/2011 WHITE DDS, HONEY D 307.40 SLEEP DISORDER, NONORGANIC 05/25/2011 RAFAELA MCHUGH APRN T 300.02 AN GEN ANXIETY 05/25/2011 RAFAELA MCHUGH APRN 307.40 SLEEP DISORDER, NONORGANIC 05/25/2011 BAZAN DO TONY K 300.02 AN GEN ANXIETY 05/25/2011 BAZAN DO TONY K 307.40 SLEEP DISORDER, NONORGANIC 05/25/2011 LUZ NEVAREZ APRNIDI A 300.02 AN GEN ANXIETY 05/25/2011 GERI RUTH LUCIE A 307.40 SLEEP DISORDER, NONORGANIC 05/25/2011 BAZAN DO [...] TONY K 307.40 SLEEP DISORDER, NONORGANIC 05/25/2011 MADL JEAN-CLAUDE RUTHA L 300 .02 AN GEN ANXIETY 05/25/2011 MADEMMANUEL Hurst APRNWNYA L 307 .40 SLEEP DISORDER, NONORGANIC 05/25/2011 RAFAELA MCHUGH APRN T 300.02 AN GEN ANXIETY 05/25/2011 RAFAELA MCHUGH APRN 307.40 SLEEP DISORDER, NONORGANIC 05/25/2011 JEANNINE FRANCO APRNYL A 300.02 AN GEN ANXIETY 05/25/2011 JEANNINE FRANCO APRNYL A 307.40 SLEEP DISORDER, NONORGANIC 05/25/2011 RAFAELA MCHUGH APRN 300.02 AN GEN ANXIETY 05/25/2011 RAFAELA MCHUGH APRN T 307.40 SLEEP DISORDER, NONORGANIC 05/25/2011 FLEX RUTH ANDERSON R 300.02 AN GEN ANXIETY 05/25/2011 DARWIN MCCORD APRNIA R 307.40 SLEEP DISORDER, NONORGANIC 06/10/2011 522.5 MORTEZA APICAL ABSCESS WITHOUT SINUS 06/10/2011 522.5 MORTEZA APICAL ABSCESS WITHOUT SINUS 06/10/2011 BAZAN DO, TONY K 522.5 PERIAPICAL ABSCESS WITHOUT SINUS 06/10/2011 522.5 MORTEZA APICAL ABSCESS WITHOUT SINUS 06/10/2011 522.5 MORTEZA APICAL ABSCESS WITHOUT SINUS 06/10/2011 BAZAN DO, TONY K 522.5 PERIAPICAL ABSCESS WITHOUT SINUS 06/10/2011 BAZAN DO, TONY K 522.5 PERIAPICAL ABSCESS WITHOUT SINUS 06/10/2011 RAFAELA MCHUGH APRN 52 2.5 PERIAPICAL ABSCESS WITHOUT SINUS 06/10/2011 BAZAN DO, TONY K 522.5 PERIAPICAL ABSCESS WITHOUT SINUS 06/10/2011 MANUEL BONILLA APRN R 522.5 PERIAPICAL ABSCESS WITHOUT SINUS 06/10/2011 RAFAELA MCHUGH APRN T 52 2.5 PERIAPICAL ABSCESS WITHOUT SINUS 06/10/2011 HONEY CASTILLO DDS 52 2.5 PERIAPICAL ABSCESS WITHOUT SINUS 06/10/2011 RAFAELA MCHUGH APRN 52 2.5 PERIAPICAL ABSCESS WITHOUT SINUS 06/10/2011 BAZAN DO, TONY K 522.5 PERIAPICAL ABSCESS WITHOUT SINUS 06/10/2011 GERIJudson RUTH LUCIE A 52 2.5 PERIAPICAL ABSCESS WITHOUT SINUS 06/10/2011 BAZAN DO, TONY K 522.5 PERIAPICAL ABSCESS WITHOUT SINUS 06/10/2011 JOSE DAVIDSON DDS 52 2.5 PERIAPICAL ABSCESS WITHOUT SINUS 06/10/2011 RAFAELA MCHUGH APRN T 52 2.5 PERIAPICAL ABSCESS WITHOUT SINUS 06/10/2011 RAFAELA MCHUGH APRN T 52 2.5 PERIAPICAL ABSCESS WITHOUT SINUS 06/10/2011 BAZAN DO, TONY K 522.5 PERIAPICAL ABSCESS WITHOUT SINUS 06/10/2011 RACHEL RUTH, VICTOR M L 522 .5 PERIAPICAL ABSCESS WITHOUT SINUS 06/10/2011 RAFAELA MCHUGH APRN 52 2.5 PERIAPICAL ABSCESS WITHOUT SINUS 06/10/2011 SALVADOR DIRECTOR OF COLLECTIONS, JULIA A 522.5 PERIAPICAL ABSCESS WITHOUT SINUS 06/10/2011 RAFAELA MCHUGH APRN 52 2.5 PERIAPICAL ABSCESS WITHOUT SINUS 06/10/2011 MCCORD DIRECTOR OF COLLECTIONS, ANDERSON R 522.5 PERIAPICAL ABSCESS WITHOUT SINUS 08/31/2011 634.90 ABO RTION, SPONTANEOUS UNSPECIFIED WITHOUT COMPLICATION 08/31/2011 V17.49 FAM HX CAD (DISEASE) 08/31/2011 V18.0 FAM HX DIABETES MELLITUS 08/31/2011 V26.41 YAMILE TILITY COUNSELING 08/31/2011 634.90 ABO RTION, SPONTANEOUS UNSPECIFIED WITHOUT COMPLICATION 08/31/2011 V17.49 FAM HX CAD (DISEASE) 08/31/2011 V18.0 FAM HX DIABETES MELLITUS 08/31/2011 V26.41 YAMILE TILITY COUNSELING 08/31/2011 TONY BAZAN DO 634.90 , SPONTANEOUS UNSPECIFIED WITHOUT COMPLICATION 08/31/2011 TONY BAZAN DO V17.49 FAM HX CAD (DISEASE) 08/31/2011 TONY BAZAN DO V18.0 FAM HX DIABETES MELLITUS 08/31/2011 TONY BAZAN DO V26.41 FERTILITY COUNSELING 08/31/2011 634.90 ABO RTION, SPONTANEOUS UNSPECIFIED WITHOUT COMPLICATION 08/31/2011 V17.49 FAM HX CAD (DISEASE) 08/31/2011 V18.0 FAM HX DIABETES MELLITUS 08/31/2011 V26.41 YAMILE TILITY COUNSELING 08/31/2011 634.90 ABO RTION, SPONTANEOUS UNSPECIFIED WITHOUT COMPLICATION 08/31/2011 V17.49 FAM HX CAD (DISEASE) 08/31/2011 V18.0 FAM HX DIABETES MELLITUS 08/31/2011 V26.41 YAMILE TILITY COUNSELING 08/31/2011 TONY BAZAN DO 634.90 , SPONTANEOUS UNSPECIFIED WITHOUT COMPLICATION 08/31/2011 TONY BAZAN DO V17.49 FAM HX CAD (DISEASE) 08/31/2011 TONY BAZAN DO V18.0 FAM HX DIABETES MELLITUS 08/31/2011 TONY BAZAN DO V26.41 FERTILITY COUNSELING 08/31/2011 BENI MARMOLEJO TONY K 634.90 , SPONTANEOUS UNSPECIFIED WITHOUT COMPLICATION 08/31/2011 BAZAN TONY K V17.49 FAM HX CAD (DISEASE) 08/31/2011 BENI MARMOLEJOEDNAA K V18.0 FAM HX DIABETES MELLITUS 08/31/2011 BENI MARMOLEJO, TONY K V26.41 FERTILITY COUNSELING 08/31/2011 RAFAELA MCHUGH APRN 634.90 , SPONTANEOUS UNSPECIFIED WITHOUT COMPLICATION 08/31/2011 RAFAELA MCHUGH APRN V17.49 FAM HX CAD (DISEASE) 08/31/2011 RAFAELA MCHUGH APRN V1 8.0 FAM HX DIABETES MELLITUS 08/31/2011 RAFAELA MCHUGH APRN V26.41 FERTILITY COUNSELING 08/31/2011 BENI MARMOLEJO TONY K 634.90 , SPONTANEOUS UNSPECIFIED WITHOUT COMPLICATION 08/31/2011 BAZAN TONY K V17.49 FAM HX CAD (DISEASE) 08/31/2011 BENI EDNAA K V18.0 FAM HX DIABETES MELLITUS 08/31/2011 BENI EDNAA K V26.41 FERTILITY COUNSELING 08/31/2011 MANUEL BONILLA APRN R 634.90 , SPONTANEOUS UNSPECIFIED WITHOUT COMPLICATION 08/31/2011 MANUEL BONILLA APRN R V17.49 FAM HX CAD (DISEASE) 08/31/2011 YUSUF BONILLA APRNINA R V18.0 FAM HX DIABETES MELLITUS 08/31/2011 MANUEL BONILLA APRN R V26.41 FERTILITY COUNSELING 08/31/2011 RAFAELA MCHUGH APRN 634.90 , SPONTANEOUS UNSPECIFIED WITHOUT COMPLICATION 08/31/2011 RAFAELA MCHUGH APRN V17.49 FAM HX CAD (DISEASE) 08/31/2011 RAFAELA MCHUGH APRN V1 8.0 FAM HX DIABETES MELLITUS 08/31/2011 RAFAELA MCHUGH APRN V26.41 FERTILITY COUNSELING 08/31/2011 WHITE DDS, HONEY D 634.90 , SPONTANEOUS UNSPECIFIED WITHOUT COMPLICATION 08/31/2011 WHITE DDS, HONEY D V17.49 FAM HX CAD (DISEASE) 08/31/2011 WHITE DDS, HONEY D V1 8.0 FAM HX DIABETES MELLITUS 08/31/2011 WHITE DDS, HONEY D V26.41 FERTILITY COUNSELING 08/31/2011 RAFAELA MCHUGH APRN 634.90 , SPONTANEOUS UNSPECIFIED WITHOUT COMPLICATION 08/31/2011 RAFAELA MCHUGH APRN V17.49 FAM HX CAD (DISEASE) 08/31/2011 RAFAELA MCHUGH APRN V1 8.0 FAM HX DIABETES MELLITUS 08/31/2011 RAFAELA MCHUGH APRN V26.41 FERTILITY COUNSELING 08/31/2011 BENI MARMOLEJO TONY K 634.90 , SPONTANEOUS UNSPECIFIED WITHOUT COMPLICATION 08/31/2011 BENI MARMOLEJOEDNAA K V17.49 FAM HX CAD (DISEASE) 08/31/2011 BENI MARMOLEJOEDNAA K V18.0 FAM HX DIABETES MELLITUS 08/31/2011 BENI MARMOLEJO TONY K V26.41 FERTILITY COUNSELING 08/31/2011 GERILUCIE Roper APRN A 634.90 , SPONTANEOUS UNSPECIFIED WITHOUT COMPLICATION 08/31/2011 GERILUCIE Roper APRN A V17.49 FAM HX CAD (DISEASE) 08/31/2011 GERILUZ Roper APRNIDI A V1 8.0 FAM HX DIABETES MELLITUS 08/31/2011 GERILUCIE Roper APRN A V26.41 FERTILITY COUNSELING 08/31/2011 BENI MARMOLEJO TONY K 634.90 , SPONTANEOUS UNSPECIFIED WITHOUT COMPLICATION 08/31/2011 BENI MARMOLEJOEDNAA K V17.49 FAM HX CAD (DISEASE) 08/31/2011 BAZAN EDNA MARMOLEJOA K V18.0 FAM HX DIABETES MELLITUS 08/31/2011 BENI EDNA MARMOLEJOA K V26.41 FERTILITY COUNSELING 08/31/2011 DAVIDSON JENNIFERSJOSE 634.90 , SPONTANEOUS UNSPECIFIED WITHOUT COMPLICATION 08/31/2011 DAVIDSON JENNIFERSJOSE V17.49 FAM HX CAD (DISEASE) 08/31/2011 DAVIDSON DDSJOSE V1 8.0 FAM HX DIABETES MELLITUS 08/31/2011 DAVIDSON JENNIFERSJOSE V26.41 FERTILITY COUNSELING 08/31/2011 RAFAELA MCHUGH APRN 634.90 , SPONTANEOUS UNSPECIFIED WITHOUT COMPLICATION 08/31/2011 RAFAELA MCHUGH APRN V17.49 FAM HX CAD (DISEASE) 08/31/2011 RAFAELA MCHUGH APRN V1 8.0 FAM HX DIABETES MELLITUS 08/31/2011 RAFAELA MCHUGH APRN V26.41 FERTILITY COUNSELING 08/31/2011 RAFAELA MCHUGH APRN 634.90 , SPONTANEOUS UNSPECIFIED WITHOUT COMPLICATION 08/31/2011 RAFAELA MCHUGH APRN V17.49 FAM HX CAD (DISEASE) 08/31/2011 RAFAELA MCHUGH APRN V1 8.0 FAM HX DIABETES MELLITUS 08/31/2011 RAFAELA MCHUGH APRN V26.41 FERTILITY COUNSELING 08/31/2011 TONY BAZAN DO K 634.90 , SPONTANEOUS UNSPECIFIED WITHOUT COMPLICATION 08/31/2011 EDNA BAZAN DOA K V17.49 FAM HX CAD (DISEASE) 08/31/2011 BENI MARMOLEJO, TONY K V18.0 FAM HX DIABETES MELLITUS 08/31/2011 BAZAN , TONY K V26.41 FERTILITY COUNSELING 08/31/2011 EMMANUEL RAMOS APRNWNYA L 634 .90 , SPONTANEOUS UNSPECIFIED WITHOUT COMPLICATION 08/31/2011 RACHEL DIRECTOR OF COLLECTIONSEMMANUEL RoperVICTOR M L V17 .49 FAM HX CAD (DISEASE) 08/31/2011 GERMÁNL DIRECTOR OF COLLECTIONSEMMANUEL RoperVICTOR M L V18 .0 FAM HX DIABETES MELLITUS 08/31/2011 GERMÁN JEAN-CLAUDE RUTHA L V26 .41 FERTILITY COUNSELING 08/31/2011 RAFAELA MCHUGH APRN 634.90 , SPONTANEOUS UNSPECIFIED WITHOUT COMPLICATION 08/31/2011 RAFAELA MCHUGH APRN V17.49 FAM HX CAD (DISEASE) 08/31/2011 RAFAELA MCHUGH APRN V1 8.0 FAM HX DIABETES MELLITUS 08/31/2011 RAFAELA MCHUGH APRN V26.41 FERTILITY COUNSELING 08/31/2011 JEANNINE FRANCO APRNYL A 634.90 , SPONTANEOUS UNSPECIFIED WITHOUT COMPLICATION 08/31/2011 JULIA FRANCO APRN V17.49 FAM HX CAD (DISEASE) 08/31/2011 SALVADOR RUTH JULIA A V18.0 FAM HX DIABETES MELLITUS 08/31/2011 SALVADOR RUTH JULIA A V26.41 FERTILITY COUNSELING 08/31/2011 RAFAELA MCHUGH APRN 634.90 , SPONTANEOUS UNSPECIFIED WITHOUT COMPLICATION 08/31/2011 RAFAELA MCHUGH APRN V17.49 FAM HX CAD (DISEASE) 08/31/2011 RAFAELA MCHUGH APRN V1 8.0 FAM HX DIABETES MELLITUS 08/31/2011 RAFAELA MCHUGH APRN V26.41 FERTILITY COUNSELING 08/31/2011 ANDERSON MCCORD APRN 634.90 , SPONTANEOUS UNSPECIFIED WITHOUT COMPLICATION 08/31/2011 FLEX AVENDAÑODARWIN RoperIA R V17.49 FAM HX CAD (DISEASE) 08/31/2011 FLEX RUTH ANDERSON R V18.0 FAM HX DIABETES MELLITUS 08/31/2011 FLEX RUTH ANDERSON R V26.41 FERTILITY COUNSELING 09/17/2011 564.00 CON STIPATION 09/17/2011 V74.5 STD SCREEN 09/17/2011 V76.2 CERV ICAL CANCER SCREENING (PAP SMEAR) 09/17/2011 564.00 CON STIPATION 09/17/2011 V74.5 STD SCREEN 09/17/2011 V76.2 CERV ICAL CANCER SCREENING (PAP SMEAR) 09/17/2011 TONY BAZAN DO K 564.00 CONSTIPATION 09/17/2011 TONY BAZAN DO K V74.5 STD SCREEN 09/17/2011 TONY BAZAN DO K V76.2 CERVICAL CANCER SCREENING (PAP SMEAR) 09/17/2011 564.00 CON STIPATION 09/17/2011 V74.5 STD SCREEN 09/17/2011 V76.2 CERV ICAL CANCER SCREENING (PAP SMEAR) 09/17/2011 564.00 CON STIPATION 09/17/2011 V74.5 STD SCREEN 09/17/2011 V76.2 CERV ICAL CANCER SCREENING (PAP SMEAR) 09/17/2011 TONY BAZAN DO K 564.00 CONSTIPATION 09/17/2011 EDNA BAZAN DOA K V74.5 STD SCREEN 09/17/2011 EDNA BAZAN DOA K V76.2 CERVICAL CANCER SCREENING (PAP SMEAR) 09/17/2011 TONY BAZAN DO K 564.00 CONSTIPATION 09/17/2011 EDNA BAZAN DOA K V74.5 STD SCREEN 09/17/2011 EDNA BAZAN DOA K V76.2 CERVICAL CANCER SCREENING (PAP SMEAR) 09/17/2011 RAFAELA MCHUGH APRN 564.00 CONSTIPATION 09/17/2011 RAFAELA MCHUGH APRN V7 4.5 STD SCREEN 09/17/2011 RAFAELA MCHUGH APRN V7 6.2 CERVICAL CANCER SCREENING (PAP SMEAR) 09/17/2011 TONY BAZAN DO K 564.00 CONSTIPATION 09/17/2011 TONY BAZAN DO K V74.5 STD SCREEN 09/17/2011 TONY BAZAN DO K V76.2 CERVICAL CANCER SCREENING (PAP SMEAR) 09/17/2011 IRENE RUTH, MANUEL R 564.00 CONSTIPATION 09/17/2011 YUSUF BONILLA APRNINA R V74.5 STD SCREEN 09/17/2011 MANUEL BONILLA APRN R V76.2 CERVICAL CANCER SCREENING (PAP SMEAR) 09/17/2011 RAFAELA MCHUGH APRN 564.00 CONSTIPATION 09/17/2011 RAFAELA MCHUGH APRN V7 4.5 STD SCREEN 09/17/2011 RAFAELA MCHUGH APRN V7 6.2 CERVICAL CANCER SCREENING (PAP SMEAR) 09/17/2011 WHITE DDS, HONEY D 564.00 CONSTIPATION 09/17/2011 WHITE DDS, HNOEY D V7 4.5 STD SCREEN 09/17/2011 WHITE DDS, HONEY D V7 6.2 CERVICAL CANCER SCREENING (PAP SMEAR) 09/17/2011 RAFAELA MCHUGH APRN 564.00 CONSTIPATION 09/17/2011 RAFAELA MCHUGH APRN V7 4.5 STD SCREEN 09/17/2011 RAFAELA MCHUGH APRN V7 6.2 CERVICAL CANCER SCREENING (PAP SMEAR) 09/17/2011 BENI MARMOLEJO TONY K 564.00 CONSTIPATION 09/17/2011 BENI MARMOLEJO TONY K V74.5 STD SCREEN 09/17/2011 BENI MARMOLEJO TONY K V76.2 CERVICAL CANCER SCREENING (PAP SMEAR) 09/17/2011 GERI RUTH LUCIE A 564.00 CONSTIPATION 09/17/2011 GERIJudson RUTH LUCIE A V7 4.5 STD SCREEN 09/17/2011 GERIJudson RUTH LUCIE A V7 6.2 CERVICAL CANCER SCREENING (PAP SMEAR) 09/17/2011 BENI MARMOLEJO TONY K 564.00 CONSTIPATION 09/17/2011 BENI MARMOLEJO TONY K V74.5 STD SCREEN 09/17/2011 BENI MARMOLEJO TONY K V76.2 CERVICAL CANCER SCREENING (PAP SMEAR) 09/17/2011 DAVIDSON DDS, JOSE 564.00 CONSTIPATION 09/17/2011 DAVIDSON DDS JOSE V7 4.5 STD SCREEN 09/17/2011 DAVIDSON JENNIFERS JOSE V7 6.2 CERVICAL CANCER SCREENING (PAP SMEAR) 09/17/2011 RAFAELA MCHUGH APRN 564.00 CONSTIPATION 09/17/2011 RAFAELA MCHUGH APRN V7 4.5 STD SCREEN 09/17/2011 RAFAELA MCHUGH APRN V7 6.2 CERVICAL CANCER SCREENING (PAP SMEAR) 09/17/2011 RAFAELA MCHUGH APRN 564.00 CONSTIPATION 09/17/2011 RAFAELA MCHUGH APRN V7 4.5 STD SCREEN 09/17/2011 RAFAELA MCHUGH APRN V7 6.2 CERVICAL CANCER SCREENING (PAP SMEAR) 09/17/2011 BAZAN EDNA MARMOLEJOA K 564.00 CONSTIPATION 09/17/2011 BAZAN EDNA MARMOLEJOA K V74.5 STD SCREEN 09/17/2011 TONY BAZAN DO K V76.2 CERVICAL CANCER SCREENING (PAP SMEAR) 09/17/2011 GERMÁNAris VICTOR M RUTH L 564 .00 CONSTIPATION 09/17/2011 VICTOR M RAMOS APRN L V74 .5 STD SCREEN 09/17/2011 VICTOR M RAMOS APRN L V76 .2 CERVICAL CANCER SCREENING (PAP SMEAR) 09/17/2011 RAFAELA MCHUGH APRN 564.00 CONSTIPATION 09/17/2011 RAFAELA MCHUGH APRN V7 4.5 STD SCREEN 09/17/2011 RAFAELA MCHUGH APRN V7 6.2 CERVICAL CANCER SCREENING (PAP SMEAR) 09/17/2011 JULIA FRANCO APRN A 564.00 CONSTIPATION 09/17/2011 JEANNINE FRANCO APRNYL A V74.5 STD SCREEN 09/17/2011 JEANNINE FRANCO APRNYL A V76.2 CERVICAL CANCER SCREENING (PAP SMEAR) 09/17/2011 RAFAELA MCHUGH APRN 564.00 CONSTIPATION 09/17/2011 RAFAELA MCHUGH APRN V7 4.5 STD SCREEN 09/17/2011 RAFAELA MCHUGH APRN V7 6.2 CERVICAL CANCER SCREENING (PAP SMEAR) 09/17/2011 ANDERSON MCCORD APRN R 564.00 CONSTIPATION 09/17/2011 ANDERSON MCCORD APRN R V74.5 STD SCREEN 09/17/2011 ANDERSON MCCORD APRN R V76.2 CERVICAL CANCER SCREENING (PAP SMEAR) 03/08/2012 296.90 MOO D DISORDER 03/08/2012 296.90 MOO D DISORDER 03/08/2012 TONY BAZAN DO K 296.90 MOOD DISORDER 03/08/2012 296.90 MOO D DISORDER 03/08/2012 296.90 MOO D DISORDER 03/08/2012 BAZAN DO, TONY K 296.90 MOOD DISORDER 03/08/2012 BAZAN DO, TONY K 296.90 MOOD DISORDER 03/08/2012 JEISON RUTH RAFAELA T 296.90 MOOD DISORDER 03/08/2012 BAZAN DO, TONY K 296.90 MOOD DISORDER 03/08/2012 YUSUF BONILLA APRNINA R 296.90 MOOD DISORDER 03/08/2012 JEISON RUTH RAFAELA T 296.90 MOOD DISORDER 03/08/2012 WHITE DDS, HONEY D 296.90 MOOD DISORDER 03/08/2012 JEISON RUTH RAFAELA T 296.90 MOOD DISORDER 03/08/2012 BAZAN DO, TONY K 296.90 MOOD DISORDER 03/08/2012 GERI DIRECTOR OF COLLECTIONS, LUCIE A 296.90 MOOD DISORDER 03/08/2012 BAZAN DO, TONY K 296.90 MOOD DISORDER 03/08/2012 DAVIDSON DDS, JOSE 296.90 MOOD DISORDER 03/08/2012 RAFAELA MCHUGH APRN T 296.90 MOOD DISORDER 03/08/2012 RAFAELA MCHUGH APRN T 296.90 MOOD DISORDER 03/08/2012 BAZAN DO, TONY K 296.90 MOOD DISORDER 03/08/2012 MADL DIRECTOR OF COLLECTIONS, VICTOR M L 296 .90 MOOD DISORDER 03/08/2012 JEISON RUTH RAFAELA T 296.90 MOOD DISORDER 03/08/2012 RAJOTTE DIRECTOR OF COLLECTIONS, JULIA A 296.90 MOOD DISORDER 03/08/2012 JEISON RUTH RAFAELA T 296.90 MOOD DISORDER 03/08/2012 MARY MCCORD APRNRICIA R 296.90 MOOD DISORDER 08/02/2012 461.9 SINU SITIS ACUTE 08/02/2012 461.9 SINU SITIS ACUTE 08/02/2012 BAZAN DO, TONY K 461.9 SINUSITIS ACUTE 08/02/2012 461.9 SINU SITIS ACUTE 08/02/2012 461.9 SINU SITIS ACUTE 08/02/2012 BAZAN DO, TONY K 461.9 SINUSITIS ACUTE 08/02/2012 BAZAN DO, TONY K 461.9 SINUSITIS ACUTE 08/02/2012 RAFAELA MCHUGH APRN 46 1.9 SINUSITIS ACUTE 08/02/2012 BAZAN DO, TONY K 461.9 SINUSITIS ACUTE 08/02/2012 YUSUF BONILLA APRNINA R 461.9 SINUSITIS ACUTE 08/02/2012 RAFAELA MCHUGH APRN T 46 1.9 SINUSITIS ACUTE 08/02/2012 JONATHAN RODRIGUEZS, HONEY Crump 46 1.9 SINUSITIS ACUTE 08/02/2012 RAFAELA MCHUGH APRN T 46 1.9 SINUSITIS ACUTE 08/02/2012 BAZAN DO, TONY K 461.9 SINUSITIS ACUTE 08/02/2012 LUZ NEVAREZ APRNIDI A 46 1.9 SINUSITIS ACUTE 08/02/2012 BAZAN DO, TONY K 461.9 SINUSITIS ACUTE 08/02/2012 LETY PURCELL, JOSE 46 1.9 SINUSITIS ACUTE 08/02/2012 RAFAELA MCHUGH APRN T 46 1.9 SINUSITIS ACUTE 08/02/2012 RAFAELA MCHUGH APRN 46 1.9 SINUSITIS ACUTE 08/02/2012 BAZAN DOEDNAA K 461.9 SINUSITIS ACUTE 08/02/2012 VICTOR M RAMOS APRN L 461 .9 SINUSITIS ACUTE 08/02/2012 RAFAELA MCHUGH APRN 46 1.9 SINUSITIS ACUTE 08/02/2012 RAJOTTKaya RUTH JULIA A 461.9 SINUSITIS ACUTE 08/02/2012 RAFAELA MCHUGH APRN 46 1.9 SINUSITIS ACUTE 08/02/2012 MARY MCCORD APRNRICIA R 461.9 SINUSITIS ACUTE 08/22/2012 787.02 nausea 08/22/2012 BAZAN DO, TONY K 787.02 nausea 08/22/2012 787.02 NAUSEA 08/22/2012 787.02 NAUSEA 08/22/2012 BAZAN DO, TONY K 787.02 NAUSEA 08/22/2012 BAZAN DO, TONY K 787.02 NAUSEA 08/22/2012 RAFAELA MCHUGH APRN 787.02 NAUSEA 08/22/2012 BAZAN DO, TONY K 787.02 NAUSEA 08/22/2012 IRENE RUTH MANUEL R 787.02 NAUSEA 08/22/2012 RAFAELA MCHUGH APRN 787.02 NAUSEA 08/22/2012 JONATHAN DDS, HONEY Crump 787.02 NAUSEA 08/22/2012 RAFAELA MCHUGH APRN 787.02 NAUSEA 08/22/2012 BAZAN DO, TONY K 787.02 NAUSEA 08/22/2012 GERI RUTH LUCIE A 787.02 NAUSEA 08/22/2012 BAZAN DO, TONY K 787.02 NAUSEA 08/22/2012 DAVIDSON DDS, JOSE 787.02 NAUSEA 08/22/2012 RAFAELA MCHUGH APRN 787.02 NAUSEA 08/22/2012 RAFAELA MCUHGH APRN 787.02 NAUSEA 08/22/2012 EDNA BAZAN DOA K 787.02 NAUSEA 08/22/2012 MADL DIRECTOR OF COLLECTIONS, VICTOR M L 787 .02 NAUSEA 08/22/2012 RAFAELA MCHUGH APRN 787.02 NAUSEA 08/22/2012 RAJOTTE DIRECTOR OF COLLECTIONS, JULIA A 787.02 NAUSEA 08/22/2012 RAFAELA MCHUGH APRN 787.02 NAUSEA 08/22/2012 MCCORD DIRECTOR OF COLLECTIONS, ANDERSON R 787.02 NAUSEA 08/25/2012 BENI MARMOLEJO TONY K 462 PHARYNGITIS ACUTE 08/25/2012 BENI MARMOLEJO TONY K 487.1 INFLUENZA WITH OTHER RESPIRATORY MANIFESTATIONS 08/25/2012 BENI MARMOLEJO TONY K 786.2 COUGH 08/25/2012 462 PHARYN GITIS ACUTE 08/25/2012 487.1 INFL UENZA WITH OTHER RESPIRATORY MANIFESTATIONS 08/25/2012 786.2 COUGH 08/25/2012 462 PHARYN GITIS ACUTE 08/25/2012 487.1 INFL UENZA WITH OTHER RESPIRATORY MANIFESTATIONS 08/25/2012 786.2 COUGH 08/25/2012 BENI MARMOLEJO TONY K 462 PHARYNGITIS ACUTE 08/25/2012 BAZAN DO TONY K 487.1 INFLUENZA WITH OTHER RESPIRATORY MANIFESTATIONS 08/25/2012 EDNA BAZAN DOA K 786.2 COUGH 08/25/2012 BAZAN DO TONY K 462 PHARYNGITIS ACUTE 08/25/2012 BAZAN DO TONY K 487.1 INFLUENZA WITH OTHER RESPIRATORY MANIFESTATIONS 08/25/2012 BAZAN DO TONY K 786.2 COUGH 08/25/2012 RAFAELA MCHUGH APRN 46 2 PHARYNGITIS ACUTE 08/25/2012 RAFAELA MCHUGH APRN 48 7.1 INFLUENZA WITH OTHER RESPIRATORY MANIFESTATIONS 08/25/2012 RAFAELA MCHUGH APRN 78 6.2 COUGH 08/25/2012 BAZAN DO TONY K 462 PHARYNGITIS ACUTE 08/25/2012 BAZAN DO TONY K 487.1 INFLUENZA WITH OTHER RESPIRATORY MANIFESTATIONS 08/25/2012 BAZAN DO, TONY K 786.2 COUGH 08/25/2012 IRENE DIRECTOR OF COLLECTIONS, MANUEL R 4 62 PHARYNGITIS ACUTE 08/25/2012 IRENE DIRECTOR OF COLLECTIONS, MANUEL R 487.1 INFLUENZA WITH OTHER RESPIRATORY MANIFESTATIONS 08/25/2012 IRENE DIRECTOR OF COLLECTIONS, MANUEL R 786.2 COUGH 08/25/2012 RAFAELA MCHUGH APRN T 46 2 PHARYNGITIS ACUTE 08/25/2012 RAFAELA MCHUGH APRN T 48 7.1 INFLUENZA WITH OTHER RESPIRATORY MANIFESTATIONS 08/25/2012 RAFAELA MCHUGH APRN T 78 6.2 COUGH 08/25/2012 WHITE DDS, HONEY D 46 2 PHARYNGITIS ACUTE 08/25/2012 WHITE DDS, HONEY D 48 7.1 INFLUENZA WITH OTHER RESPIRATORY MANIFESTATIONS 08/25/2012 WHITE DDS, HONEY D 78 6.2 COUGH 08/25/2012 RAFAELA MCHUGH APRN T 46 2 PHARYNGITIS ACUTE 08/25/2012 RAFAELA MCHUGH APRN T 48 7.1 INFLUENZA WITH OTHER RESPIRATORY MANIFESTATIONS 08/25/2012 RAFAELA MCHUGH APRN T 78 6.2 COUGH 08/25/2012 BAZAN DO, TONY K 462 PHARYNGITIS ACUTE 08/25/2012 BAZAN DO, TONY K 487.1 INFLUENZA WITH OTHER RESPIRATORY MANIFESTATIONS 08/25/2012 BAZAN DO, TONY K 786.2 COUGH 08/25/2012 GERI APRN, LUCIE A 46 2 PHARYNGITIS ACUTE 08/25/2012 GERI DIRECTOR OF COLLECTIONS, LUCIE A 48 7.1 INFLUENZA WITH OTHER RESPIRATORY MANIFESTATIONS 08/25/2012 GERI APRN, LUCIE A 78 6.2 COUGH 08/25/2012 BAZAN DO, TONY K 462 PHARYNGITIS ACUTE 08/25/2012 BAZAN DO, TONY K 487.1 INFLUENZA WITH OTHER RESPIRATORY MANIFESTATIONS 08/25/2012 BAZAN DO, TONY K 786.2 COUGH 08/25/2012 DAVIDSON DDS, JOSE 46 2 PHARYNGITIS ACUTE 08/25/2012 DAVIDSON DDS, JOSE 48 7.1 INFLUENZA WITH OTHER RESPIRATORY MANIFESTATIONS 08/25/2012 DAVIDSON DDS, JOSE 78 6.2 COUGH 08/25/2012 RAFAELA MCHUGH APRN T 46 2 PHARYNGITIS ACUTE 08/25/2012 RAFAELA MCHUGH APRN T 48 7.1 INFLUENZA WITH OTHER RESPIRATORY MANIFESTATIONS 08/25/2012 RAFAELA MCHUGH APRN T 78 6.2 COUGH 08/25/2012 JEISON DIRECTOR OF COLLECTIONSRAFAELA Roper T 46 2 PHARYNGITIS ACUTE 08/25/2012 RAFAELA MCHUGH APRN T 48 7.1 INFLUENZA WITH OTHER RESPIRATORY MANIFESTATIONS 08/25/2012 RAFAELA MCHUGH APRN T 78 6.2 COUGH 08/25/2012 BAZAN DO, TONY K 462 PHARYNGITIS ACUTE 08/25/2012 BAZAN DO, TONY K 487.1 INFLUENZA WITH OTHER RESPIRATORY MANIFESTATIONS 08/25/2012 BAZAN DO, TONY K 786.2 COUGH 08/25/2012 MADL DIRECTOR OF COLLECTIONS, VICTOR M L 462 PHARYNGITIS ACUTE 08/25/2012 MADL DIRECTOR OF COLLECTIONS, VICTOR M L 487 .1 INFLUENZA WITH OTHER RESPIRATORY MANIFESTATIONS 08/25/2012 MADL DIRECTOR OF COLLECTIONS, VICTOR M L 786 .2 COUGH 08/25/2012 RAFAELA MCHUGH APRN 46 2 PHARYNGITIS ACUTE 08/25/2012 RAFAELA MCHUGH APRN 48 7.1 INFLUENZA WITH OTHER RESPIRATORY MANIFESTATIONS 08/25/2012 RAFAELA MCHUGH APRN T 78 6.2 COUGH 08/25/2012 ALYXKaya RUTH, JULIA A 462 PHARYNGITIS ACUTE 08/25/2012 RAJMOKaya DIRECTOR OF COLLECTIONS, JULIA A 487.1 INFLUENZA WITH OTHER RESPIRATORY MANIFESTATIONS 08/25/2012 RAJMOE DIRECTOR OF COLLECTIONS, JULIA A 786.2 COUGH 08/25/2012 RAFAELA MCHUHG APRN T 46 2 PHARYNGITIS ACUTE 08/25/2012 RAFAELA MCHUGH APRN T 48 7.1 INFLUENZA WITH OTHER RESPIRATORY MANIFESTATIONS 08/25/2012 RAFAELA MCHUGH APRN T 78 6.2 COUGH 08/25/2012 MARY MCCORD APRNRICIA R 462 PHARYNGITIS ACUTE 08/25/2012 FLEX RUTH ANDERSON R 487.1 INFLUENZA WITH OTHER RESPIRATORY MANIFESTATIONS 08/25/2012 FLEX RUTH ANDERSON R 786.2 COUGH 12/30/2012 LESLY GUILLEN, SHAN Crump Ot 493.90 ASTHMA, UNSPECIFIED 12/30/2012 SHAN GRACE MD Ot 786.05 SHORTNESS OF BREATH 04/17/2013 BAZAN DO, TONY K V04.81 FLU DX (3 YRS AND ABOVE, IM) 04/17/2013 BAZAN DO, TONY K V04.81 FLU DX (3 YRS AND ABOVE, IM) 04/17/2013 JEISON RUTH, RAFAELA Jordan V04.81 FLU DX (3 YRS AND ABOVE, IM) 04/17/2013 TONY BAZAN DO K V04.81 FLU DX (3 YRS AND ABOVE, IM) 04/17/2013 IRENE AVENDAÑON, MANUEL R V04.81 FLU DX (3 YRS AND ABOVE, IM) 04/17/2013 RAFAELA MCHUGH APRN V04.81 FLU DX (3 YRS AND ABOVE, IM) 04/17/2013 WHITE DDS, HONEY D V04.81 FLU DX (3 YRS AND ABOVE, IM) 04/17/2013 JEISON AVENDAÑONRAFAELA V04.81 FLU DX (3 YRS AND ABOVE, IM) 04/17/2013 TONY BAZAN DO K V04.81 FLU DX (3 YRS AND ABOVE, IM) 04/17/2013 GERI AVENDAÑON, LUCIE A V04.81 FLU DX (3 YRS AND ABOVE, IM) 04/17/2013 TONY BAZAN DO K V04.81 FLU DX (3 YRS AND ABOVE, IM) 04/17/2013 LETY RODRIGUEZS, JOSE V04.81 FLU DX (3 YRS AND ABOVE, IM) 04/17/2013 RAFAELA MCHUGH APRN V04.81 FLU DX (3 YRS AND ABOVE, IM) 04/17/2013 RAFAELA MCHUGH APRN V04.81 FLU DX (3 YRS AND ABOVE, IM) 04/17/2013 TONY BAZAN DO K V04.81 FLU DX (3 YRS AND ABOVE, IM) 04/17/2013 RACHEL RUTH, VICTOR M L V04 .81 FLU DX (3 YRS AND ABOVE, IM) 04/17/2013 RAFAELA MCHUGH APRN T V04.81 FLU DX (3 YRS AND ABOVE, IM) 04/17/2013 RAJTAWNY AVENDAÑON, JULIA A V04.81 FLU DX (3 YRS AND ABOVE, IM) 04/17/2013 RAFAELA MCHUGH APRN V04.81 FLU DX (3 YRS AND ABOVE, IM) 04/17/2013 FLEX RUTH, ANDERSON Samuels V04.81 FLU DX (3 YRS AND ABOVE, IM) 08/07/2013 RAFAELA MCHUGH APRN 46 5.9 UPPER RESPIRATORY INFECTION 08/07/2013 BAZAN DO, TONY K 465.9 UPPER RESPIRATORY INFECTION 08/07/2013 IRENE DIRECTOR OF COLLECTIONS, MANUEL R 465.9 UPPER RESPIRATORY INFECTION 08/07/2013 JEISON DIRECTOR OF COLLECTIONS, RAFAELA T 46 5.9 UPPER RESPIRATORY INFECTION 08/07/2013 WHITE DDS, HONEY D 46 5.9 UPPER RESPIRATORY INFECTION 08/07/2013 JEISON DIRECTOR OF COLLECTIONS, RAFAELA T 46 5.9 UPPER RESPIRATORY INFECTION 08/07/2013 BAZAN DO, TONY K 465.9 UPPER RESPIRATORY INFECTION 08/07/2013 GERI DIRECTOR OF COLLECTIONS, LUCIE A 46 5.9 UPPER RESPIRATORY INFECTION 08/07/2013 BAZAN DO, TONY K 465.9 UPPER RESPIRATORY INFECTION 08/07/2013 JOSE DAVIDSON DDS 46 5.9 UPPER RESPIRATORY INFECTION 08/07/2013 JEISON DIRECTOR OF COLLECTIONS RAFAELA T 46 5.9 UPPER RESPIRATORY INFECTION 08/07/2013 JEISON DIRECTOR OF COLLECTIONS, RAFAELA T 46 5.9 UPPER RESPIRATORY INFECTION 08/07/2013 BAZAN DO, TONY K 465.9 UPPER RESPIRATORY INFECTION 08/07/2013 MADL DIRECTOR OF COLLECTIONS, VICTOR M L 465 .9 UPPER RESPIRATORY INFECTION 08/07/2013 JEISON DIRECTOR OF COLLECTIONS RAFAELA T 46 5.9 UPPER RESPIRATORY INFECTION 08/07/2013 RAJOTTE DIRECTOR OF COLLECTIONS, JULIA A 465.9 UPPER RESPIRATORY INFECTION 08/07/2013 JEISON DIRECTOR OF COLLECTIONS RAFAELA T 46 5.9 UPPER RESPIRATORY INFECTION 08/07/2013 MCCORD DIRECTOR OF COLLECTIONS, ANDERSON R 465.9 UPPER RESPIRATORY INFECTION 09/11/2013 BAZAN DO, TONY K 682.9 CELLULITIS AND ABSCESS OF UNSPECIFIED SITES 09/11/2013 IRENE DIRECTOR OF COLLECTIONS, MANUEL R 682.9 CELLULITIS AND ABSCESS OF UNSPECIFIED SITES 09/11/2013 JEISON AVENDAÑON RAFAELA T 68 2.9 CELLULITIS AND ABSCESS OF UNSPECIFIED SITES 09/11/2013 JONATHAN DDS, HONEY D 68 2.9 CELLULITIS AND ABSCESS OF UNSPECIFIED SITES 09/11/2013 JEISON AVENDAÑON, RAFAELA T 68 2.9 CELLULITIS AND ABSCESS OF UNSPECIFIED SITES 09/11/2013 BAZAN DO, TONY K 682.9 CELLULITIS AND ABSCESS OF UNSPECIFIED SITES 09/11/2013 GERI DIRECTOR OF COLLECTIONS, LUCIE A 68 2.9 CELLULITIS AND ABSCESS OF UNSPECIFIED SITES 09/11/2013 BAZAN DO, TONY K 682.9 CELLULITIS AND ABSCESS OF UNSPECIFIED SITES 09/11/2013 LETY RODRIGUEZS, JOSE 68 2.9 CELLULITIS AND ABSCESS OF UNSPECIFIED SITES 09/11/2013 RAFAELA MCHUGH APRN 68 2.9 CELLULITIS AND ABSCESS OF UNSPECIFIED SITES 09/11/2013 RAFAELA MCHUGH APRN 68 2.9 CELLULITIS AND ABSCESS OF UNSPECIFIED SITES 09/11/2013 BAZAN DO, TONY K 682.9 CELLULITIS AND ABSCESS OF UNSPECIFIED SITES 09/11/2013 VICTOR M RAMOS APRN L 682 .9 CELLULITIS AND ABSCESS OF UNSPECIFIED SITES 09/11/2013 RAFAELA MCHUGH APRN 68 2.9 CELLULITIS AND ABSCESS OF UNSPECIFIED SITES 09/11/2013 JEANNINE FRANCO APRNYL A 682.9 CELLULITIS AND ABSCESS OF UNSPECIFIED SITES 09/11/2013 RAFAELA MCHUGH APRN 68 2.9 CELLULITIS AND ABSCESS OF UNSPECIFIED SITES 09/11/2013 ANDERSON MCCORD APRN R 682.9 CELLULITIS AND ABSCESS OF UNSPECIFIED SITES 10/12/2013 RAFAELA MCHUGH APRN 346.90 HEADACHE, MIGRAINE 10/12/2013 HONEY CASTILLO DDS 346.90 HEADACHE, MIGRAINE 10/12/2013 RAFAELA MCHUGH APRN T 346.90 HEADACHE, MIGRAINE 10/12/2013 BAZAN DO, TONY K 346.90 HEADACHE, MIGRAINE 10/12/2013 GERIJudson RUTH LUCIE A 346.90 HEADACHE, MIGRAINE 10/12/2013 BAZAN DO, TONY K 346.90 HEADACHE, MIGRAINE 10/12/2013 DAVIDSON DDS, JOSE 346.90 HEADACHE, MIGRAINE 10/12/2013 RAFAELA MCHUGH APRN T 346.90 HEADACHE, MIGRAINE 10/12/2013 RAFAELA MCHUGH APRN T 346.90 HEADACHE, MIGRAINE 10/12/2013 BAZAN DO, TONY K 346.90 HEADACHE, MIGRAINE 10/12/2013 MADAris DIRECTOR OF COLLECTIONSEMMANUELVICTOR M L 346 .90 HEADACHE, MIGRAINE 10/12/2013 RAFAELA MCHUGH APRN T 346.90 HEADACHE, MIGRAINE 10/12/2013 SALVADOR DIRECTOR OF COLLECTIONS, JULIA A 346.90 HEADACHE, MIGRAINE 10/12/2013 RAFAELA MCHUGH APRN T 346.90 HEADACHE, MIGRAINE 10/12/2013 FLEX RUTH ANDERSON R 346.90 HEADACHE, MIGRAINE 11/27/2013 HONEY CASTILLO DDS 726.32 LATERAL EPICONDYLITIS [place] 11/27/2013 JONATHAN DDS, HONEY Crump E849.0 HOME ACCIDENTS 11/27/2013 RAFAELA MCHUGH APRN 726.32 LATERAL EPICONDYLITIS [place] 11/27/2013 RAFAELA MCHUGH APRN E849.0 HOME ACCIDENTS 11/27/2013 BAZAN DO, TONY K 726.32 LATERAL EPICONDYLITIS [place] 11/27/2013 BAZAN DO, TONY K E849.0 HOME ACCIDENTS 11/27/2013 GERI RUTH LUCIE A 726.32 LATERAL EPICONDYLITIS [place] 11/27/2013 GERIEMILIE RUTH LUCIE A E849.0 HOME ACCIDENTS 11/27/2013 BAZAN DO, TONY K 726.32 LATERAL EPICONDYLITIS [place] 11/27/2013 BAZAN DO, TONY K E849.0 HOME ACCIDENTS 11/27/2013 LETY RODRIGUEZSJOSE 726.32 LATERAL EPICONDYLITIS [place] 11/27/2013 DAVIDSON JENNIFERS, JOSE E849.0 HOME ACCIDENTS 11/27/2013 RAFAELA MCHUGH APRN 726.32 LATERAL EPICONDYLITIS [place] 11/27/2013 RAFAELA MCHUGH APRN E849.0 HOME ACCIDENTS 11/27/2013 RAFAELA MCHUGH APRN 726.32 LATERAL EPICONDYLITIS [place] 11/27/2013 RAFAELA MCHUGH APRN E849.0 HOME ACCIDENTS 11/27/2013 BAZAN DO, TONY K 726.32 LATERAL EPICONDYLITIS [place] 11/27/2013 BAZAN DO, TONY K E849.0 HOME ACCIDENTS 11/27/2013 VICTOR M RAMOS APRN 726 .32 LATERAL EPICONDYLITIS [place] 11/27/2013 VICTOR M RAMOS APRN L E84 9.0 HOME ACCIDENTS 11/27/2013 RAFAELA MCHUGH APRN 726.32 LATERAL EPICONDYLITIS [place] 11/27/2013 RAFAELA MCHUGH APRN E849.0 HOME ACCIDENTS 11/27/2013 JULIA FRANCO APRN 726.32 LATERAL EPICONDYLITIS [place] 11/27/2013 JEANNINE FRANCO APRNYL A E849.0 HOME ACCIDENTS 11/27/2013 RAFAELA MCHUGH APRN 726.32 LATERAL EPICONDYLITIS [place] 11/27/2013 RAFAELA MCHUGH APRN E849.0 HOME ACCIDENTS 11/27/2013 FLEX RUTH ANDERSON R 726.32 LATERAL EPICONDYLITIS [place] 11/27/2013 FLEX RUTH ANDERSON R E849.0 HOME ACCIDENTS 12/07/2013 RAFAELA MCHUGH APRN 28 0.9 ANEMIA, IRON DEFICIENCY 12/07/2013 RAFAELA MCHUGH APRN 79 0.6 LFT (LIVER FUNCTION TEST) ABNORMAL 12/07/2013 BAZAN DO, TONY K 280.9 ANEMIA, IRON DEFICIENCY 12/07/2013 BAZAN DO, TONY K 790.6 LFT (LIVER FUNCTION TEST) ABNORMAL 12/07/2013 GERI DIRECTOR OF COLLECTIONS, LUCIE A 28 0.9 ANEMIA, IRON DEFICIENCY 12/07/2013 GERI DIRECTOR OF COLLECTIONS, LUCIE A 79 0.6 LFT (LIVER FUNCTION TEST) ABNORMAL 12/07/2013 BAZAN DO, TONY K 280.9 ANEMIA, IRON DEFICIENCY 12/07/2013 BAZAN DO, TONY K 790.6 LFT (LIVER FUNCTION TEST) ABNORMAL 12/07/2013 JOSE DAVIDSON DDS 28 0.9 ANEMIA, IRON DEFICIENCY 12/07/2013 JOSE DAVIDSON DDS 79 0.6 LFT (LIVER FUNCTION TEST) ABNORMAL 12/07/2013 RAFAELA MCHUGH APRN 28 0.9 ANEMIA, IRON DEFICIENCY 12/07/2013 RAFAELA MCHUGH APRN 79 0.6 LFT (LIVER FUNCTION TEST) ABNORMAL 12/07/2013 RAFAELA MCHUGH APRN 28 0.9 ANEMIA, IRON DEFICIENCY 12/07/2013 RAFAELA MCHUGH APRN 79 0.6 LFT (LIVER FUNCTION TEST) ABNORMAL 12/07/2013 BAZAN DO, TONY K 280.9 ANEMIA, IRON DEFICIENCY 12/07/2013 BAZAN DO, TONY K 790.6 LFT (LIVER FUNCTION TEST) ABNORMAL 12/07/2013 MADL FLORY, VICTOR M L 280 .9 ANEMIA, IRON DEFICIENCY 12/07/2013 MADL DIRECTOR OF COLLECTIONS, VICTOR M L 790 .6 LFT (LIVER FUNCTION TEST) ABNORMAL 12/07/2013 RAFAELA MCHUGH APRN T 28 0.9 ANEMIA, IRON DEFICIENCY 12/07/2013 RAFAELA MCHUGH APRN T 79 0.6 LFT (LIVER FUNCTION TEST) ABNORMAL 12/07/2013 SALVADOR RUTH JULIA A 280.9 ANEMIA, IRON DEFICIENCY 12/07/2013 JULIA FRANCO APRN A 790.6 LFT (LIVER FUNCTION TEST) ABNORMAL 12/07/2013 RAFAELA MCHUGH APRN 28 0.9 ANEMIA, IRON DEFICIENCY 12/07/2013 RAFAELA MCHUGH APRN 79 0.6 LFT (LIVER FUNCTION TEST) ABNORMAL 12/07/2013 ANDERSON MCCORD APRN R 280.9 ANEMIA, IRON DEFICIENCY 12/07/2013 ANDERSON MCCORD APRN R 790.6 LFT (LIVER FUNCTION TEST) ABNORMAL 01/10/2014 TONY BAZAN DO 726.10 DISORDERS OF BURSAE AND TENDONS IN SHOULDER REGION UNSPECIFIED 01/10/2014 LUCIE NEVAREZ APRN A 726.10 DISORDERS OF BURSAE AND TENDONS IN SHOULDER REGION UNS PECIFIED 01/10/2014 TONY BAZAN DO 726.10 DISORDERS OF BURSA[place] AND TENDONS IN SHOULDER REGION UNSPECIFIED 01/10/2014 JOSE DAVIDSON DDS 726.10 DISORDERS OF BURSAE AND TENDONS IN SHOULDER REGION UNS PECIFIED 01/10/2014 RAFAELA MCHUGH APRN 726.10 DISORDERS OF BURSAE AND TENDONS IN SHOULDER REGION UNS PECIFIED 01/10/2014 RAFAELA MCHUGH APRN 726.10 DISORDERS OF BURSAE AND TENDONS IN SHOULDER REGION UNS PECIFIED 01/10/2014 TONY BAZAN DO 726.10 DISORDERS OF BURSAE AND TENDONS IN SHOULDER REGION UNSPECIFIED 01/10/2014 VICTOR M RAMOS APRN 726 .10 DISORDERS OF BURSAE AND TENDONS IN SHOULDER REGION UNSPECIFIED 01/10/2014 RAFAELA MCHUGH APRN 726.10 DISORDERS OF BURSAE AND TENDONS IN SHOULDER REGION UNS PECIFIED 01/10/2014 JULIA FRANCO APRN A 726.10 DISORDERS OF BURSAE AND TENDONS IN SHOULDER REGION UNS PECIFIED 01/10/2014 RAFAELA MCHUGH APRN 726.10 DISORDERS OF BURSAE AND TENDONS IN SHOULDER REGION UNS PECIFIED 01/10/2014 ANDERSON MCCORD APRN R 726.10 DISORDERS OF BURSAE AND TENDONS IN SHOULDER REGION UNS PECIFIED 01/31/2014 LUCIE NEVAREZ APRN A 62 6.4 IRREGULAR MENSTRUAL CYCLE 01/31/2014 TONY BAZAN DO 626.4 IRREGULAR MENSTRUAL CYCLE 01/31/2014 JOSE DAVIDSON DDS 62 6.4 IRREGULAR MENSTRUAL CYCLE 01/31/2014 RAFAELA MCHUGH APRN T 62 6.4 IRREGULAR MENSTRUAL CYCLE 01/31/2014 RAFAELA MCHUGH APRN T 62 6.4 IRREGULAR MENSTRUAL CYCLE 01/31/2014 TONY BAZAN DO K 626.4 IRREGULAR MENSTRUAL CYCLE 01/31/2014 EMMAUNEL RAMOS APRNWNYA L 626 .4 IRREGULAR MENSTRUAL CYCLE 01/31/2014 RAFAELA MCHUGH APRN T 62 6.4 IRREGULAR MENSTRUAL CYCLE 01/31/2014 SALVADOR AVENDAÑOJudson JULIA A 626.4 IRREGULAR MENSTRUAL CYCLE 01/31/2014 RAFAELA MCHUGH APRN T 62 6.4 IRREGULAR MENSTRUAL CYCLE 01/31/2014 DARWIN MCCORD APRNIA R 626.4 IRREGULAR MENSTRUAL CYCLE 05/21/2014 BENI DOTONY K V04.81 FLU SHOT 05/21/2014 RACHEL RUTHVICTOR M L V04 .81 FLU SHOT 05/21/2014 RAFAELA MCHUGH APRN V04.81 FLU SHOT 05/21/2014 ALYXJEANNINE Kirkpatrick APRNYL A V04.81 FLU SHOT 05/21/2014 RAFAELA MCHUGH APRN T V04.81 FLU SHOT 05/21/2014 MARY MCCORD APRNRICIA R V04.81 FLU SHOT 06/20/2014 RACHEL JEAN-CLAUDE RUTHA L 381 .02 ACUTE MUCOID OTITIS MEDIA 06/20/2014 RACHEL JEAN-CLAUDE RUTHA L 461 .9 SINUSITIS ACUTE 06/20/2014 RAFAELA MCHUGH APRN T 381.02 ACUTE MUCOID OTITIS MEDIA 06/20/2014 RAFAELA MCHUGH APRN 46 1.9 SINUSITIS ACUTE 06/20/2014 JEANNINE FRANCO APRNYL A 381.02 ACUTE MUCOID OTITIS MEDIA 06/20/2014 JEANNINE FRANCO APRNYL A 461.9 SINUSITIS ACUTE 06/20/2014 RAFAELA MCHUGH APRN T 381.02 ACUTE MUCOID OTITIS MEDIA 06/20/2014 RAFAELA MCHUGH APRN 46 1.9 SINUSITIS ACUTE 06/20/2014 DARWIN MCCORD APRNIA R 381.02 ACUTE MUCOID OTITIS MEDIA 06/20/2014 DARWIN MCCORD APRNIA R 461.9 SINUSITIS ACUTE 07/31/2014 JEANNINE FRANCO APRNYL A 780.50 SLEEP DISTURBANCE, UNSPECIFIED 07/31/2014 RAFAELA MCHUGH APRN 780.50 SLEEP DISTURBANCE, UNSPECIFIED 07/31/2014 ANDERSON MCCORD APRN 780.50 SLEEP DISTURBANCE, UNSPECIFIED 08/07/2014 RAFAELA MCHUGH APRN 780.52 INSOMNIA UNSPECIFIED 08/07/2014 ANDERSON MCCORD APRN 780.52 INSOMNIA UNSPECIFIED 06/03/2016 RAFAELA MCHUGH Ot G43.009 MIGRAINE W/O AURA, NOT INTRACTABLE, W/O 07/07/2016 RAFAELA MCHUGH ELDERLY SITTER Ot G43.009 MIGRAINE W/O AURA, NOT INTRACTABLE, W/O 11/09/2016 RAFAELA SERRANO DO Ot G43.909 MIGRAINE, UNSP, NOT INTRACTABLE, WITHOUT 11/09/2016 RAFAELA SERRANO DO Ot I1 0 ESSENTIAL (PRIMARY) HYPERTENSION 01/23/2017 AYUSH MARMOLEJO SHILOH K Ot G43.909 MIGRAINE, UNSP, NOT INTRACTABLE, WITHOUT 01/23/2017 AYUSH DO SHILOH K Ot I10 ESSENTIAL (PRIMARY) HYPERTENSION 01/23/2017 AYUSH MARMOLEJO SHILOH K Ot J45.909 UNSPECIFIED ASTHMA, UNCOMPLICATED 01/24/2017 LESLY GUILLEN, SHAN Crump Ot G43.909 MIGRAINE, UNSP, NOT INTRACTABLE, WITHOUT 01/24/2017 SHAN GRACE MD Ot I10 ESSENTIAL (PRIMARY) HYPERTENSION 01/24/2017 LESLY GUILLEN, SHAN Crump Ot J45.909 UNSPECIFIED ASTHMA, UNCOMPLICATED 01/24/2017 LESLY GUILLEN, SHAN Crump Ot R51 HEADACHE 01/25/2017 AYUSH MARMOLEJO SHILOH K Ot G43.909 MIGRAINE, UNSP, NOT INTRACTABLE, WITHOUT 01/25/2017 AYUSH DO, SHILOH K Ot I10 ESSENTIAL (PRIMARY) HYPERTENSION 01/25/2017 AYUSH MARMOLEJO SHILOH K Ot J45.909 UNSPECIFIED ASTHMA, UNCOMPLICATED 01/26/2017 LESLY GUILLEN, SHAN Crump Ot G43.909 MIGRAINE, UNSP, NOT INTRACTABLE, WITHOUT 01/26/2017 SHAN GRACE MD Ot I10 ESSENTIAL (PRIMARY) HYPERTENSION 01/26/2017 SHAN GRACE MD Ot J45.909 UNSPECIFIED ASTHMA, UNCOMPLICATED 01/26/2017 LESLY GUILLEN, SHAN Crump Ot R51 HEADACHE 03/04/2017 RAFAELA MCHUGH Ot G43.009 MIGRAINE W/O AURA, NOT INTRACTABLE, W/O Procedures Code Description [place] [address] INFL UENZA A & B (IN-HOUSE) 08/25/2012 07806 STRE P A (IN-HOUSE) 08/25/2012 63616 CULT URE WOUND (AEROBIC) 09/14/2013 04615 ROUT INE VENIPUNCTURE 11/28/2013 04152 LIPI D PANEL 11/28/2013 27189 CBC 11/28/2013 23534 CMP 11/28/2013 [id number] GF R CALC (RESULT ONLY) 11/28/2013 76001 TSH 11/28/2013 ORTHOPEDI KIERAN DU 12/07/2013 66198 TB T EST INTRADERMAL 12/24/2013 52851 JOIN T INJECTION- INTERMEDIATE JOINT 01/10/2014 38169 ROUT INE VENIPUNCTURE 01/31/2014 00566 PREG ABY TEST, URINE (IN- HOUSE) 01/31/2014 10742 CBC 01/31/2014 61737 ROUT INE VENIPUNCTURE 04/23/2014 34848 CBC 04/23/2014 37551 CMP 04/23/2014 IRGROUP IR ON GROUP (Iron,TIBC, Ferritin) 04/23/2014 17977 THER APUTIC INJ SQ/IM 07/31/2014 J1040 DEPO MEDROL 80 MG INJ 08/04/2014 18561 INFL UENZA A & B (IN-HOUSE) 09/16/2014 64996 OXIMETRY 09/16/2014 Results Test Result Range CBC With Differential/Platelet - 7 08:18 WBC 4.1 x10E3/uL 3.4-10.8 RBC 3.87 x10E6/uL 3.77-5.28 Hemoglobin 11.8 g/dL 11.1-15.9 Hematocrit 34.6 % 34.0-46.6 MCV 89 fL 79-97 MCH 30.5 pg 26.6-33.0 MCHC 34.1 g/dL 31.5-35.7 RDW 14.2 % 12.3-15.4 Platelets 269 x10E3/uL 150-379 Neutrophils 45 % Lymphs 30 % Monocytes 15 % Eos 9 % Basos 1 % Neutrophils (Absolute) 1.9 x10E3/uL 1.4- 7.0 Lymphs (Absolute) 1.2 x10E3/uL 0.7-3.1 Monocytes(Absolute) 0.6 x10E3/uL 0.1-0.9 Eos (Absolute) 0.4 x10E3/uL 0.0-0.4 Baso (Absolute) 0.0 x10E3/uL 0.0-0.2 Immature Granulocytes 0 % Immature Grans (Abs) 0.0 x10E3/uL 0.0-0. 1 Comp. Metabolic Panel (14) - 03/10/17 08 :18 Glucose, Serum 83 mg/dL 65-99 BUN 18 mg/dL 6-24 Creatinine, Serum 0.67 mg/dL 0.57-1.00 eGFR If NonAfricn Am 105 mL/min/1.73 >59 eGFR If Africn Am 121 mL/min/1.73 >5 9 BUN/Creatinine Ratio 27 9-23 Sodium, Serum 139 mmol/L 134-144 Potassium, Serum 4.1 mmol/L 3.5-5.2 Chloride, Serum 104 mmol/L 96-106 Carbon Dioxide, Total 21 mmol/L 18-29 Calcium, Serum 8.7 mg/dL 8.7-10.2 Protein, Total, Serum 7.0 g/dL 6.0-8.5 Albumin, Serum 3.6 g/dL 3.5-5.5 Globulin, Total 3.4 g/dL 1.5-4.5 A/G Ratio 1.1 1.2-2.2 Bilirubin, Total <0.2 mg/dL 0.0-1.2 Alkaline Phosphatase, S 63 IU/L 39-117 AST (SGOT) 12 IU/L 0-40 ALT (SGPT) 15 IU/L 0-32 Lipid Panel - 03/10/17 08:18 Cholesterol, Total 115 mg/dL 100-199 Triglycerides 78 mg/dL 0-149 HDL Cholesterol 48 mg/dL >39 VLDL Cholesterol Yrn 16 mg/dL 5-40 LDL Cholesterol Calc 51 mg/dL 0-99 Luteinizing Hormone(LH), S - 03/10/17 08 :18 LH 17.7 mIU/mL FSH, Serum - 03/10/17 08:18 FSH 11.7 mIU/mL Prolactin - 03/10/17 08:18 Prolactin 23.2 ng/mL 4.8-23.3 Estradiol - 03/10/17 08:18 Estradiol 247.7 pg/mL Vitamin D, 25-Hydroxy - 03/10/17 08:18 Vitamin D, 25-Hydroxy 17.4 ng/mL 30.0-10 0.0 Sedimentation Rate-Westergren - 03/10/17 08:18 Sedimentation Rate-Westergren 28 mm/hr 0-32 Vitamin B12 - 03/10/17 08:18 Vitamin B12 373 pg/mL 211-946 Magnesium, Serum - 03/10/17 08:18 Magnesium, Serum 2.1 mg/dL 1.6-2.3 TSH - 04/18/18 16:40 TSH 1.66 mIU/L NRG PDM - PAIN MGMT (PROFILE 3 WITH CONFIRMA TION) - 04/18/18 16:40 Prescribed Drug 1 Xanax(TM) NRG Creatinine 168.8 mg/dL > or = 20.0 pH 6.10 4.5 - 9.0 Oxidant NEGATIVE mcg/mL <200 Amphetamines NEGATIVE ng/mL <500 medMATCH Amphetamines CONSISTENT NRG Benzodiazepines POSITIVE ng/mL <100 Marijuana Metabolite NEGATIVE ng/mL <20 medMATCH Marijuana Metab CONSISTENT NRG Cocaine Metabolite NEGATIVE ng/mL <150 medMATCH Cocaine Metab CONSISTENT NRG Opiates NEGATIVE ng/mL <100 medMATCH Opiates CONSISTENT NRG Oxycodone NEGATIVE ng/mL <100 medMATCH Oxycodone CONSISTENT NRG COMMENT NRG Alphahydroxyalprazolam 711 ng/mL <25 medMATCH aOH alprazolam CONSISTENT NRG Alphahydroxymidazolam NEGATIVE ng/mL < 50 medMATCH aOH midazolam CONSISTENT NRG Alphahydroxytriazolam NEGATIVE ng/mL < 50 medMATCH aOH triazolam CONSISTENT NRG Aminoclonazepam NEGATIVE ng/mL <25 medMATCH Aminoclonazepam CONSISTENT NRG Hydroxyethylflurazepam NEGATIVE ng/mL <50 medMATCH OH,Et flurazepam CONSISTENT NR G Lorazepam NEGATIVE ng/mL <50 medMATCH Lorazepam CONSISTENT NRG Nordiazepam NEGATIVE ng/mL <50 medMATCH Nordiazepam CONSISTENT NRG Oxazepam NEGATIVE ng/mL <50 medMATCH Oxazepam CONSISTENT NRG Temazepam NEGATIVE ng/mL <50 medMATCH Temazepam CONSISTENT NRG Encounters ACCT No. Visit Date/Time Discharge Status Pt. Type Provider Facility Loc./Unit Complaint [id number] 03/11/2017 10:09:00 Document Registration [id number] 01/24/2017 07:54:00 017 11:58:00 DIS Emergency SHAN GRACE MD Via [facility] MIGRAINE [id number] 01/23/2017 01:54:00 017 02:57:00 DIS Emergency SHILOH PEACOKC DO a [facility] ER MIGRAINE [id number] 11/08/2016 21:21:00 017 22:37:00 DIS Outpatient RAFAELA SERRANO DO [facility] MIGRAINE [id number] 06/02/2016 10:05:00 016 23:59:59 CLS Outpatient RAFAELA MCHUGH ELDERLY SITTER [facility] RAD MIGRAINE W/O AURA AND W /O STATUS MIGRAINOSUS [id number] 12/30/2012 22:25:00 013 23:51:00 DIS Emergency SHAN GRACE MD [facility] ER SOA [id number] 12/19/2019 14:40:00 12/19/2019 23:59:5 9 CLS Outpatient MARIA LUZ MARTINEZ [facility] [id number] 04/18/2018 16:00:00 Document Registration [id number] 09/16/2014 14:16:00 09/16/2014 23:59: 59 CLS Outpatient ANDERSON MCCORD APRN [id number] 08/07/2014 10:01:00 08/07/2014 23:59: 59 CLS Outpatient RAFAELA MCHUGH APRN [id number] 07/31/2014 10:52:00 07/31/2014 23:59: 59 CLS Outpatient JULIA FRANCO APRN [id number] 07/09/2014 15:52:00 07/09/2014 23:59: 59 CLS Outpatient RAFAELA MCHUGH APRN [id number] 06/20/2014 15:08:00 06/20/2014 23:59: 59 CLS Outpatient VICTOR M RAMOS APRN [id number] 05/21/2014 10:31:00 05/21/2014 23:59: 59 CLS Outpatient BAZAN DO TONY Lopez [id number] 04/24/2014 15:05:00 04/24/2014 23:59: 59 CLS Outpatient RAFAELA MCHUGH APRN [id number] 04/23/2014 15:18:00 04/23/2014 23:59: 59 CLS Outpatient RAFAELA MCHUGH APRN [id number] 02/27/2014 16:40:00 02/27/2014 23:59: 59 CLS Outpatient DAVIDSON DDJOSE Rodríguez [id number] 02/21/2014 13:25:00 02/21/2014 23:59: 59 CLS Outpatient BAZAN DO TONY Lopez [id number] 01/31/2014 15:00:00 01/31/2014 23:59: 59 CLS Outpatient GERI DIRECTOR OF COLLECTIONSLUCIE Leo [id number] 01/10/2014 13:41:00 01/10/2014 23:59: 59 CLS Outpatient BAZAN DO TONY Lopez [id number] 12/07/2013 14:22:00 12/07/2013 23:59: 59 CLS Outpatient RAFAELA MCHUGH APRN [id number] 11/29/2013 13:42:00 11/29/2013 23:59: 59 CLS Outpatient HONEY CASTILLO DDS [id number] 10/12/2013 14:22:00 10/12/2013 23:59: 59 CLS Outpatient RAFAELA MCHUGH APRN [id number] 09/12/2013 15:04:00 09/12/2013 23:59: 59 CLS Outpatient MANUEL BONILLA APRN Abril [id number] 09/11/2013 10:37:00 09/11/2013 23:59: 59 CLS Outpatient BAZAN DOTONY [id number] 08/07/2013 14:46:00 08/07/2013 23:59: 59 CLS Outpatient RAFAELA MCHUGH APRN Nikki [id number] 06/28/2013 09:36:00 06/28/2013 23:59: 59 CLS Outpatient BAZAN DOTONY [id number] 04/17/2013 10:59:00 04/17/2013 23:59: 59 CLS Outpatient BAZAN DOTONY [id number] 08/25/2012 11:39:00 08/25/2012 23:59: 59 CLS Outpatient BAZAN DOTONY [id number] 08/22/2012 15:24:00 08/22/2012 23:59: 59 CLS Outpatient [id number] 08/02/2012 14:32:00 08/02/2012 23:59: 59 CLS Outpatient [id number] 01/22/2013 11:16:00 Document Registration [id number] 01/05/2013 09:42:00 Document Registration
[2020-03-17] MEDS ORDERED: PROP40TA5 PO (19:55)
[2020-03-17] MEDS ORDERED: PROM25TA14 PO (19:55)
--- NOTE | 2020-03-17 19:56 | ED Headache ---
General Chief Complaint: Head/Cervical Problems Stated Complaint: HEADACHE Nursing Triage Note: PT AMB TO TRIAGE WITH COMPLAINT OF MIGRAINE THAT STARTED AT 0800. STATES TOOK EXCEDRIN AT 1400 WITH NO RELIEF Nursing Sepsis Screen: No Definite Risk Source: patient Exam Limitations: no limitations History of Present Illness Date Seen by Provider: Mar 17, 2020 Time Seen by Provider: 19:44 Allergies and Home Medications Allergies Coded Allergies: hydrocodone (Unverified Allergy, Intermediate, vomitting, 01/23/17) states also cant breath/dizziness Home Medications Alprazolam 0.5 Mg Tablet, 1 TAB PO BID, (Reported) Fluticasone Propionate 16 Gm Naspr, 16 GM NS DAILY, (Reported) Past Jvtopia-Awoctx-Ngugbp Hx Patient Social History Alcohol Use: Occasionally Uses Recreational Drug Use: No Smoking Status: Never a Smoker Recent Foreign Travel: No Contact w/Someone Who Travel: No Recent Infectious Disease Expo: No Recent Hopitalizations: No Immunizations Up To Date Tetanus Booster (TDap): Unknown PED Vaccines UTD: Yes Seasonal Allergies Seasonal Allergies: Yes (HAYFEVER) Past Medical History Surgeries: Yes Gallbladder Respiratory: Yes Asthma Cardiac: Yes Hypertension Neurological: Yes Headaches /Migraines Reproductive Disorders: No Sexually Transmitted Disease: No Gastrointestinal: No Musculoskeletal: No Endocrine: No Cancer: No Psychosocial: No Integumentary: No Blood Disorders: No Family Medical History No Pertinent Family Hx Physical Exam Vital Signs Vital Signs - First Documented 03/17/20 19:31 Temp 36.8 Pulse 88 Resp 20 B/P (MAP) 165/97 (119) Pulse Ox 100 O2 Delivery Room Air Capillary Refill : Less Than 3 Seconds Height, Weight, BMI Height: 5'3.00" Weight: 135lbs. oz. 61.574868xs; 23.00 BMI Method:Stated Progress/Results/Core Measures Results/Orders My Orders Orders - AUREA BOWMAN MD Promethazine Injection (Phenergan Injec (03/17/20 20:00) Ketorolac Injection (Toradol Injection) (03/17/20 20:00) Vital Signs/I&O 03/17/20 19:31 Temp 36.8 Pulse 88 Resp 20 B/P (MAP) 165/97 (119) Pulse Ox 100 O2 Delivery Room Air Blood Pressure Mean: 119 Departure Impression Primary Impression: Migraine Qualified Codes: G43.009 - Migraine without aura, not intractable, without status migrainosus Additional Impression: Hypertension Qualified Codes: I10 - Essential (primary) hypertension Disposition: HOME, SELF-CARE Condition: Improved Departure-Patient Inst. Referrals: [facility] (PCP) Primary Care Physician RAFAELA MCHUGH (Family) Primary Care Physician Patient Instructions: High Blood Pressure (DC), Migraines (DC) Add. Discharge Instructions: Drink plenty of clear liquids to stay well-hydrated. Rest in a quiet, calm, dark environment for the remainder of the night. You may take ibuprofen up to 600 mg every 6 hours and Tylenol (acetaminophen) up to 1000 mg every 6 hours as needed for pain. Resume taking propranolol as prescribed to control blood pressure and prevent headaches. Follow-up with your primary care provider soon as possible. Return to care if you have worsening or uncontrolled symptoms. All discharge instructions reviewed with patient and/or family. Voiced understanding. Scripts Propranolol HCl (Propranolol HCl) 40 Mg Tablet 40 MG PO BID, #60 TAB Prov: AUREA BOWMAN MD 03/17/20 Promethazine HCl (Promethazine Tablet) 25 Mg Tablet 25 MG PO Q6H PRN for NAUSEA/VOMITING, #10 TAB Prov: AUREA BOWMAN MD 03/17/20 AUREA BOWMAN MD Mar 17, 2020 19:56
[2020-03-17] MEDS ORDERED: KETOROLAC 30 MG/ML VIAL IM ONE (20:00)
[2020-03-17] MEDS ORDERED: PROMETHAZINE INJ 25 MG/ML (PHENERGAN) AMP IM ONE (20:00)
[2020-03-17] MEDS ORDERED: ORPHENADRINE 60 MG/2 ML (NORFLEX) AMP (ED ONLY) IM ONE (21:00)
[2020-03-17] MEDS ORDERED: oxyCODONE/APAP 5/325MG (PERCOCET 5) TABLET PO ONE (21:00)
[2020-03-17 21:53] VITALS: BP 155/88
== END 2020-03-17 21:53 | disposition home or self-care (01) ==
LOC: EDUNIT# 18:56 → ER 18:57
DX: G43.909 Migraine, unspecified, not intractable, without status migrainosus (principal); I10 Essential (primary) hypertension; J45.909 Unspecified asthma, uncomplicated; Z88.5 Allergy status to narcotic agent; Z79.51 Long term (current) use of inhaled steroids
CPT/HCPCS: 99284

== ENCOUNTER 2021-09-21 19:25 | Emergency (ER) | payer BC ==
[~2021-09-21] VITALS: Ht 160 cm; Wt 57.1 kg
[~2021-09-21 19:25] MED LIST changes: +PROM25TA14 PO; +PROP40TA5 PO; -PSEU60TA21; +PSEU60TA87
[2021-09-21 20:30] VITALS: BP 110/72
--- NOTE | 2021-09-21 20:39 | ED Integumentary General ---
General Chief Complaint: Skin/Wound Problems Stated Complaint: LEFT LEG INFECTED AREA Nursing Triage Note: Pt arrives ambulatory w/ c/o left posterior thigh wound. Pt states that she was seen @ office on -10, and was given Bactrim, but wound continues to get worse. Small amount pink serous fluid noted on bandaid. Pt given blanket, and sweats remain lowered for physician exam. Source: patient Exam Limitations: no limitations History of Present Illness Date Seen by Provider: Sep 21, 2021 Time Seen by Provider: 20:36 Initial Comments Patient is a 51-year-old female presents ED with a wound to her left thigh. She noticed a small white area on the eighth. Was prescribed Bactrim on the and has taken 4 days worth. Increasing redness, warmth. She reports hardness and concern for possible abscess. Denies of any trauma, possible bites, fever, chills, nausea vomiting, diarrhea. She attempted to drain the area at home. Allergies and Home Medications Allergies Coded Allergies: hydrocodone (Unverified Allergy, Intermediate, vomitting, 01/23/17) states also cant breath/dizziness Patient Home Medication List Home Medication List Reviewed: Yes Alprazolam (Xanax) 0.5 Mg Tablet, 1 TAB PO BID, (Reported) Entered as Reported by: WENDY MACDONALD on 12/30/122251 Alprazolam (Alprazolam) 1 Mg Tablet, (Reported) Entered as Reported by: SHILPA BOSWELL on 11/08/162132 Baclofen (Baclofen) 20 Mg Tablet, (Reported) Entered as Reported by: SHILPA BOSWELL on 11/08/162132 Clindamycin HCl (Clindamycin HCl) 300 Mg Capsule, 300 MG PO QID Prescribed by: CHET HOOPER on 09/21/212118 Fluticasone Propionate (Flonase Nasal [place]) 16 Gm Naspr, 16 GM NS DAILY, (Reported) Entered as Reported by: WENDY MACDONALD on 12/30/122251 Gabapentin (Gabapentin) 100 Mg Capsule, (Reported) Entered as Reported by: SHILPA BOSWELL on 11/08/162131 Levocetirizine Dihydrochloride (Levocetirizine Dihydrochloride) 5 Mg Tablet, (Reported) Entered as Reported by: SHILPA BOSWELL on 11/08/162131 Nasal Exhalation Resistance Dv (Provent) 1 Each Each, 1 EACH .ROUTE BID, (Reported), (DME) Entered as Reported by: WENDY MACDONALD on 12/30/122251 Promethazine HCl (Promethazine Tablet) 25 Mg Tablet, 25 MG PO Q6H PRN for NAUSEA/VOMITING Prescribed by: AUREA RUELAS on 03/17/201954 Propranolol HCl (Propranolol HCl) 60 Mg Tablet, (Reported) Entered as Reported by: SHILPA BOSWELL on 11/08/162131 Propranolol HCl (Propranolol HCl) 40 Mg Tablet, 40 MG PO BID Prescribed by: AUREA RUELAS on 03/17/201954 Pseudoephedrine HCl (Sudogest) 60 Mg Tablet, (Reported) Entered as Reported by: SHILPA BOSWELL on 11/08/162131 [Butalbital-APAP-] , (Reported) Entered as Reported by: SHILPA BOSWELL on 11/08/162131 Review of Systems Review of Systems Constitutional: No chills, No fever, No malaise, No weakness EENTM: No hearing loss, No ear pain, No nose pain, No throat pain, No throat swelling Respiratory: No cough, No dyspnea on exertion Cardiovascular: No chest pain Gastrointestinal: No abdominal pain, No diarrhea, No nausea, No vomiting Genitourinary: No decreased output, No dysuria, No frequency Musculoskeletal: No back pain, No joint pain Skin: change in color Psychiatric/Neurological: Denies Anxiety, Denies Depressed All Other Systems Reviewed Negative Unless Noted: Yes Past Bwpymcr-Irggrl-Rbcdzu Hx Immunizations Up To Date Tetanus Booster (TDap): Unknown PED Vaccines UTD: Yes Seasonal Allergies Seasonal Allergies: Yes (HAYFEVER) Past Medical History Surgeries: Yes Gallbladder Respiratory: Yes Asthma Cardiac: Yes Hypertension Neurological: Yes Headaches /Migraines Reproductive Disorders: No Sexually Transmitted Disease: No Gastrointestinal: No Musculoskeletal: No Endocrine: No Cancer: No Psychosocial: No Integumentary: No Blood Disorders: No Family Medical History No Pertinent Family Hx Physical Exam Vital Signs Vital Signs - First Documented 09/21/21 20:30 Temp 36.7 Pulse 88 Resp 18 B/P (MAP) 110/72 (85) Pulse Ox 100 O2 Delivery Room Air Capillary Refill : Less Than 3 Seconds General Appearance: WD/WN, no apparent distress HEENT: PERRL/EOMI, normal ENT inspection, TMs normal, pharynx normal Neck: non-tender, full range of motion, supple, normal inspection Cardiovascular: regular rate, rhythm, no edema, no gallop, no JVD, no murmur Respiratory: chest non-tender, lungs clear, normal breath sounds, no respiratory distress, no accessory muscle use Gastrointestinal: normal bowel sounds, non tender, soft, no organomegaly Back: normal inspection, no CVA tenderness Extremities: other (Localized abscess 2 x 2 centimeter mild fluctuant with surrounding duration, erythema warmth) Procedures/Interventions I&D : Site: left thigh Blade Size: 11 I & D Procedure: betadine prep, sterile drapes applied Packing/Drain: Idoform 08/11 Progress Moderate amount of purulent bloody drainage. Irrigation with 100 male. Lidocaine 1% 7 ml was used with 22-gauge needle. Patient tolerated procedure well Progress/Results/Core Measures Results/Orders My Orders Orders - PRITESH ROWELL Lidocaine 1% Inj 20 Ml (Xylocaine 1% Inj (09/21/21 20:45) Clindamycin Capsule (Cleocin Capsule) (09/21/21 21:30) Ns Iv 500 Ml (Sodium Chloride 0.9%) (09/21/21 21:17) Vital Signs/I&O 09/21/21 20:30 Temp 36.7 Pulse 88 Resp 18 B/P (MAP) 110/72 (85) Pulse Ox 100 O2 Delivery Room Air Blood Pressure Mean: 85 Departure Communication (Admissions) Incision and drainage abscess to left thigh. Mild amount of purulent drainage. Iodoform gauze was placed. Remove in 2 to 3 days. Will change antibiotics to clindamycin. Discussed wound care. Localized erythema and swelling. Induration noted. Possible spider bite. Denies any drug use. Will discharge with anti-inflammatories. Return precaution were discussed with patient. Impression Primary Impression: Abscess Disposition: 01 HOME, SELF-CARE Condition: Stable Departure-Patient Inst. Decision time for Depature: 21:18 Referrals: [facility] (PCP) Primary Care Physician RAFAELA MCHUGH (Family) Primary Care Physician Patient Instructions: Abscess Incision and Drainage ED Scripts Clindamycin HCl (Clindamycin HCl) 300 Mg Capsule 300 MG PO QID for 7 Days, #28 CAP Prov: PRITESH ROWELL 09/21/21 PRITESH ROWELL Sep 21, 2021 20:39
[2021-09-21] MEDS ORDERED: LIDOCAINE 1% INJ 20 ML VIAL INJ ONE (20:45)
[2021-09-21] MEDS ORDERED: NS IV 500 ML 500 ML ONE (21:17)
[2021-09-21] MEDS ORDERED: CLIN-144 PO (21:19)
[2021-09-21] MEDS ORDERED: CLINDAMYCIN 150 MG (CLEOCIN) CAP PO ONE (21:30)
== END 2021-09-21 21:40 | disposition home or self-care (01) ==
LOC: EDUNIT# 19:25 → ER 19:29
DX: L02.416 Cutaneous abscess of left lower limb (principal); J45.909 Unspecified asthma, uncomplicated; I10 Essential (primary) hypertension
CPT/HCPCS: 10060

== ENCOUNTER 2021-12-28 20:16 | Emergency (ER) | payer SELFPAY ==
[~2021-12-28] VITALS: Ht 160 cm; Wt 58.0 kg
[~2021-12-28 20:16] MED LIST changes: +CLIN-144 PO
[2021-12-28 20:32] VITALS: BP 132/85
[2021-12-28] MEDS ORDERED: CLIN150C20 PO (20:54)
--- NOTE | 2021-12-28 20:54 | ED EENT ---
History of Present Illness General Chief Complaint: Nasal Problems Stated Complaint: NASAL WOUND,POSS MRSA Nursing Triage Note: PT AMB TO ED BY POV WITH C/O PAIN IN R NOSTRIL. PT REPORTS THE PAIN BEGAN YESTERDAY, HAD A PIMPLE IN THE NOSTRIL THIS MORNING THAT HAS GOTTEN WORSE THROUGHOUT THE DAY. PT HAS HX MRSA INFECTIONS. Source: patient Exam Limitations: no limitations History of Present Illness Date Seen by Provider: December 28, 2021 Time Seen by Provider: 20:30 Allergies and Home Medications Allergies Coded Allergies: hydrocodone (Unverified Allergy, Intermediate, vomitting, 01/23/17) states also cant breath/dizziness Patient Home Medication List Alprazolam (Xanax) 0.5 Mg Tablet, 1 TAB PO BID, (Reported) Entered as Reported by: WENDY MACDONALD on 12/30/122251 Alprazolam (Alprazolam) 1 Mg Tablet, (Reported) Entered as Reported by: SHILPA BOSWELL on 11/08/162132 Baclofen (Baclofen) 20 Mg Tablet, (Reported) Entered as Reported by: SHILPA BOSWELL on 11/08/162132 Clindamycin HCl (Clindamycin HCl) 300 Mg Capsule, 300 MG PO QID Prescribed by: CHET HOOPER on 09/21/212118 Fluticasone Propionate (Flonase Nasal [place]) 16 Gm Naspr, 16 GM NS DAILY, (Reported) Entered as Reported by: WENDY MACDONALD on 12/30/122251 Gabapentin (Gabapentin) 100 Mg Capsule, (Reported) Entered as Reported by: SHILPA BOSWELL on 11/08/162131 Levocetirizine Dihydrochloride (Levocetirizine Dihydrochloride) 5 Mg Tablet, (Reported) Entered as Reported by: SHILPA BOSWELL on 11/08/162131 Nasal Exhalation Resistance Dv (Provent) 1 Each Each, 1 EACH .ROUTE BID, (Reported), (DME) Entered as Reported by: WENDY MACDONALD on 12/30/122251 Promethazine HCl (Promethazine Tablet) 25 Mg Tablet, 25 MG PO Q6H PRN for NAUSEA/VOMITING Prescribed by: AUREA RUELAS on 03/17/201954 Propranolol HCl (Propranolol HCl) 60 Mg Tablet, (Reported) Entered as Reported by: SHILPA BOSWELL on 11/08/162131 Propranolol HCl (Propranolol HCl) 40 Mg Tablet, 40 MG PO BID Prescribed by: AUREA RUELAS on 03/17/201954 Pseudoephedrine HCl (Sudogest) 60 Mg Tablet, (Reported) Entered as Reported by: SHILPA BOSWELL on 11/08/162131 [Butalbital-APAP-] , (Reported) Entered as Reported by: SHILPA BOSWELL on 11/08/162131 Past Tthmctm-Qmcpva-Ezqqco Hx Immunizations Up To Date Tetanus Booster (TDap): Unknown PED Vaccines UTD: Yes First/Initial COVID19 Vaccinat: unvaccinated Seasonal Allergies Seasonal Allergies: Yes (HAYFEVER) Past Medical History Surgeries: Yes Gallbladder Respiratory: Yes Asthma Cardiac: Yes Hypertension Neurological: Yes Headaches /Migraines Reproductive Disorders: No Sexually Transmitted Disease: No Gastrointestinal: No Musculoskeletal: No Endocrine: No Cancer: No Psychosocial: No Integumentary: No Blood Disorders: No Family Medical History No Pertinent Family Hx Physical Exam Vital Signs Vital Signs - First Documented 12/28/21 20:32 Temp 36.3 Pulse 76 Resp 16 B/P (MAP) 132/85 (101) Pulse Ox 100 O2 Delivery Room Air Height, Weight, BMI Height: 5'3.00" Weight: 135lbs. oz. 61.877301vi; 22.00 BMI Method:Stated Progress/Results/Core Measures Results/Orders My Orders Orders - PURA GRIMES APRN Clindamycin Capsule (Cleocin Capsule) (12/28/21 21:00) Mupirocin Ointment (Bactroban Ointment (12/28/21 21:00) Vital Signs/I&O 12/28/21 20:32 Temp 36.3 Pulse 76 Resp 16 B/P (MAP) 132/85 (101) Pulse Ox 100 O2 Delivery Room Air Blood Pressure Mean: 101 Departure Impression Primary Impression: Infected lesion in nose Disposition: 01 HOME, SELF-CARE Condition: Stable Departure-Patient Inst. Decision time for Depature: 20:51 Referrals: [facility] (PCP/Family) Primary Care Physician Patient Instructions: MRSA (DC) Add. Discharge Instructions: Plan: 1. Take clindamycin as directed and complete full course even if you begin to feel better. 2. Use a separate cotton swab and apply thin layer of the mupirocin ointment to each nostril twice a day for the next 7 days. 3. Follow-up with your primary care provider if symptoms persist. 4. Return to the ER for any new, concerning, worsening symptoms All discharge instructions reviewed with patient and/or family. Voiced understanding. Scripts Clindamycin HCl (Clindamycin HCl) 150 Mg Capsule 150 MG PO Q8H for 7 Days, #21 CAP 0 Refills Prov: PURA GRIMES APRN 12/28/21 PURA GRIMES APRN December 28, 2021 20:54
[2021-12-28] MEDS ORDERED: CLINDAMYCIN 150 MG (CLEOCIN) CAP PO ONE (21:00)
[2021-12-28] MEDS ORDERED: MUPIROCIN 2% OINT 22 GM (BACTROBAN) TUBE NSEACH ONE (21:00)
== END 2021-12-28 21:18 | disposition home or self-care (01) ==
LOC: EDUNIT# 20:16 → ER 20:18
DX: J34.89 Other specified disorders of nose and nasal sinuses (principal); L08.9 Local infection of the skin and subcutaneous tissue, unspecified; Z86.14 Personal history of Methicillin resistant Staphylococcus aureus infection
CPT/HCPCS: 99283